=== PATIENT | male | born 1945 | race Caucasian/White ===

== ENCOUNTER 2018-02-15 17:28 | Inpatient (IN) | payer MEDICARE, MEDICAID, SELFPAY ==
[2018-02-15 17:39] VITALS: RESP 16; TEMP 36.6; O2SAT 99; BMI 30.1
--- NOTE | 2018-02-15 19:36 | DI.CT.S_ITS ---
PROCEDURE: CT HEAD/BRAIN WO CON INDICATIONS: weakness - NPH? TECHNIQUE: Noncontrast 4.5 mm thick angled axial sections acquired from the foramen magnum to the vertex, with coronal and sagittal reformats. For radiation dose reduction, the following was used: automated exposure control, adjustment of mA and/or kV according to patient size. COMPARISON: [facility], CT, HEAD WITHOUT CONTRAST, 01/09/2013, 23:12. FINDINGS: Image quality: Excellent. CSF spaces: Basal cisterns are patent. No extra-axial fluid collections. The ventricles are symmetric in size and shape. Brain: No intracranial bleeds or masses. There is cerebral volume loss for age, with resultant ventricular and sulcal prominence. There are periventricular and deep white matter chronic small vessel ischemic changes. There is intracranial internal carotid artery atherosclerosis. Skull and face: Calvarium and visualized facial bones appear intact, without suspicious lesions. Sinuses: Visualized sinuses and mastoids are clear. IMPRESSION: 1. No acute intracranial abnormality. 2. Volume loss and small vessel ischemic disease. Dictated by: Omari Greer M.D. on 02/15/2018 at 20:06 Approved by: Omari Greer M.D. on 02/15/2018 at 20:07
--- NOTE | 2018-02-15 19:38 | DI.RAD.S_ITS ---
PROCEDURE: XR CHEST 2V INDICATIONS: weakness TECHNIQUE: 2 views of the chest were acquired. COMPARISON: [facility], , CHEST 2 VIEW, 10/03/2016, 16:04. FINDINGS: Surgical changes and devices: None. Lungs and pleura: No pleural effusions or pneumothorax. Lungs are clear. Mediastinum: Mediastinal contours are normal. Heart size is normal. Bones and chest wall: No suspicious bony abnormalities. Soft tissues appear unremarkable. IMPRESSION: No acute process. Dictated by: Omari Greer M.D. on 02/15/2018 at 20:06 Approved by: Omari Greer M.D. on 02/15/2018 at 20:06
[2018-02-15 19:46] LABS: Add Manual Diff / Slide Review NO; Basophils Percent Auto 0.5 % (0-2); Eosinophils Percent Auto 2.3 % (2-4); Hematocrit 39.3 % (41-53); Hemoglobin 13.8 g/dL (13.5-17.5); Lymphocytes Percent Auto 17.2 % (25-40); Mean Corpuscular Hemoglobin 31.9 PG (26-34); Monocytes Percent Auto 12.1 % (3-14); Neutrophils Absolute Auto 4800 /uL (3000-5900); Neutrophils Percent Auto 67.9 % (50-75); Platelet Count 208 X10^3/uL (150-400); Red Blood Cell Count 4.32 X10^6/uL (4.5-5.9); Red Cell Distribution Width 12.9 % (11.6-14.8); White Blood Cell Count 7.1 X10^3/uL (4.5-11.0)
[2018-02-15 19:51] LABS: BUN Creatinine Ratio 17.3 (6-22); Calcium 9.4 mg/dL (8.4-10.2); Estimated Glomerular Filt Rate > 60.0 mL/min (>60); Glucose 104 mg/dL (80-110); HEMOLYSIS 35 (0-50); Magnesium 1.9 mg/dL (1.6-2.3); Potassium 4.4 mmol/L (3.4-5.1)
[2018-02-15 19:54] LABS: Sodium 112 mmol/L (137-145)
--- NOTE | 2018-02-15 20:01 | PC.NURSE ---
critical value na 112/ cl 77/ per rd/lindy. dr. becker
[2018-02-15 20:06] LABS: Erythrocyte Sedimentation Rate 3 MM/HR (0-15)
[2018-02-15 20:13] LABS: Troponin I < 0.012 ng/mL (0.01-0.034)
[2018-02-15 20:29] LABS: Free T4, Direct Thyroxine 1.49 ng/dL (0.78-2.19)
[2018-02-15 20:43] LABS: Thyroid Stimulating Hormone 7.44 uIU/mL (0.47-4.68)
--- NOTE | 2018-02-15 21:10 | ED.WEAKNESS ---
HPI - Weakness General Chief complaint: Weakness Stated complaint: NOT EATING,NOT SEEING WELL History of Present Illness HPI Narrative: HPI 72-year-old male with multiple medical comorbidities presents for evaluation of months of gradually worsening ability to perform ADLs. Patient reports chronic diffuse pain, gradually worsening weakness, long-standing blurry vision, and worsening depression. Decreased appetite, decreased taste sensitivity, and decreased enjoyment from taking food. Patient had a period Of unspecified duration, estimated between 1 and 3 weeks of TCA antidepressant noncompliant with resumption between one and 3 weeks prior to ED evaluation. Patient is not seen his primary care provider regarding these issues. Patient lives with his in a double wide trailer. Patient uses a walking stick, expresses reluctance to using a walker. Patient is able to ambulate, perform ADLs, but has increased global weakness. Patient denies chest pain, fevers, chills, dysuria, abdominal pain. Continues to pass flatus and stool at baseline. History obtained from: patient and spouse. 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 Medications: amlodipine, fluticasone, furosemide, HCTZ, levothyroxine, lisinopril, nortriptyline, protons, potassium chloride, pravastatin, tamsulosin ROS: Negative constitutional, eye, cardiovascular, pulmonary, GI, , MSK, skin, neurologic, psychiatric, endocrine unless noted in the HPI. Exam Gen: pleasant, nontoxic-appearing, resting in no apparent distress, mildly obese, appears globally to be in diminished health. HEENT: right pupil pinpoint and nonreactive, left pupil vertically ellipsoid approximately 2.5 mm tall by 1 mm wide, minimally reactive to light (baseline per patient), patient able to count fingers at approximately 3 feet from his left eye (baseline vision without corrective lenses per patient). EOMI, no proptosis. Otherwise normocephalic, atraumatic. Resp: Clear to auscultation bilaterally, normal work of breathing with no accessory muscle usage. Card: Regular rate and rhythm. No JVD. No pedal edema bilaterally. GI: Nontender to palpation throughout all quadrants. Nondistended. : no suprapubic tenderness to palpation. MSK: No visible deformities, mild global decrease in strength and tone. Skin: Normal color with no visible lesions. Neuro: Gen AO x 3, no facial asymmetry, no gaze preference, no slurring of speech. CN II-III: (as above); III, IV, : EOMI, V1-V3: sensation to touch bilaterally intact; VII: no facial asymmetry (frown / smile); VIII: no nystagmus; X: phonation intact; XI: SCM 5/5 bilaterally, XII: tongue midline. Cerebellar: no pronator drift, [id number] testing without dysmetria. Motor: bilateral 5/5 cloth tester quality strength and intact hand sensation to touch, bilateral 5/5 dorsiflexion/plantarflexion and foot sensation intact to touch. Gait: patient able to walk with a mildly unsteady slightly broad based gait, requires minimal assistance (equivalent to a cane). Patient able to sit up and stand independently from the bed. Psych: mildly depressed mood and flat affect. Labs / Imaging (pertinent): WBC 7.1, Hb 13.8, sodium 112, potassium 4.4 glucose 14, creatinine 1.1, troponin less than 0.012, ESR 3, TSH 7.44, free T4 1.49 CXR: No acute cardiopulmonary disease process. CT head: no acute intracranial abnormally. EKG: SR at approximately 60 bpm, VPCs in a bigeminal pattern nonspecific ST segment changes. ECG compared with prior dated 01/09/13, patient in sinus rhythm without ventricular premature contractions. UA - pending (uncollected). MDM Previous chart, nursing note, and vitals reviewed. A: 72-year-old male with multiple medical comorbidities presents for evaluation of months of gradually worsening ability to perform ADLs. DDx: CVA, normal pressure hydrocephalus, ACS/UA, UTI, pneumonia, electrolyte abnormalities,anemia, hypothyroidism, polymyalgia rheumatica, acute on chronic deconditioning, dietary deficiencies. Evaluation: * CVA: Examination without evidence of focal neuro deficit and history without evidence of resolved focal neuro deficit making stroke or TIA unlikely. * ACS/UA: Doubt ACS given a nonischemic EKG and negative troponin, history without clear evidence of symptoms consistent with unstable angina. * UTI: unable to exclude, urinalysis pending at time of admission. * Pneumonia: Doubt pneumonia given lack productive cough, fever, focal infiltrate on chest x-ray, or leukocytosis. * Heme/Lytes/Thyroid: patient with significant hyponatremia, tentatively suspect secondary to malnutrition (tea and toast). * Polymyalgia rheumatica: ESR WNL, poor fit with overall symptoms, further evaluation deferred to PCP. * Normal pressure hydrocephalus: no evidence by imaging. ED Course: no acute clinically significant changes. Disposition: patient admitted for further management of hyponatremia. Impression: hyponatremia. 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 Time: 30 minutes were spent directly related to patient care exclusive of separately billed procedures. . Related Data Home Medications Medication Instructions Recorded Confirmed hydrochlorothiazide 25 mg PO QDAY #0 01/09/13 02/15/18 potassium chloride 10 meq PO QDAY #0 01/09/13 02/15/18 pravastatin [Pravachol] 60 mg PO HS #0 01/09/13 02/15/18 amlodipine 10 mg PO DAILY 02/15/18 02/15/18 fluticasone 2 spray INTRANASAL DAILY 02/15/18 02/15/18 furosemide 20 mg PO DAILY 02/15/18 02/15/18 levothyroxine 75 mcg PO DAILY 02/15/18 02/15/18 lisinopril 80 mg PO DAILY 02/15/18 02/15/18 nortriptyline 20 mg PO QHS 02/15/18 02/15/18 pantoprazole [Protonix] 40 mg PO DAILY 02/15/18 02/15/18 tamsulosin 2 cap PO QHS 02/15/18 02/15/18 Allergies Allergy/AdvReac Type Severity Reaction Status Date / Time Penicillins [PENICILLINS] AdvReac Severe IT PIERCE Unverified 01/06/18 12:54 LIKE MAD NOTHING DIGESTS Exam Initial Vital Signs Initial Vital Signs: Vital Signs Temperature 97.8 F 02/15/18 17:39 Respiratory Rate 16 02/15/18 17:39 Pulse Oximetry 99 02/15/18 17:39 Course Orders Ordered: ED Orders 02/15/18 18:00 Basic Metabolic Panel Stat Complete Blood Count AUTO DIFF Stat Erythrocyte Sedimentation Rate Stat Free T4 Free Thyroxine Stat Magnesium Stat Thyroid Stimulating Hormone Stat Troponin I Stat 02/15/18 18:19 EKG-12 Lead Stat 02/15/18 19:36 CT head/brain wo con Stat Urinalysis and Microscopic Stat 02/15/18 19:38 XR chest 2V Stat Vital Signs - 8 hr 02/15/18 17:39 Temperature 97.8 F Respiratory Rate 16 Pulse Oximetry 99 MDM - Weakness Lab Data Result diagrams: 02/15/18 18:00 02/15/18 18:00 Lab Results 02/15/18 02/15/18 02/15/18 Range/Units 18:00 18:00 18:00 WBC 7.1 (4.5-11.0) X10^3/uL RBC 4.32 L (4.5-5.9) X10^6/uL Hgb 13.8 (13.5-17.5) g/dL Hct 39.3 L (41-53) % MCV 91.0 (80-100) fL MCH 31.9 (26-34) PG MCHC 35.0 (30-36) % RDW 12.9 (11.6-14.8) % Plt Count 208 (150-400) X10^3/uL Neut % (Auto) 67.9 (50-75) % Lymph % (Auto) 17.2 L (25-40) % [place]rick % (Auto) 12.1 (3-14) % Eos % (Auto) 2.3 (2-4) % Baso % (Auto) 0.5 (0-2) % Neut # (Auto) 4800 (8157-9666) /uL ESR 3 (0-15) MM/HR Sodium 112 L* (137-145) mmol/L Potassium 4.4 (3.4-5.1) mmol/L Chloride 77.0 L (98-107) mmol/L Carbon Dioxide 22.0 (22-32) mmol/L BUN 19.0 (9-20) mg/dL Creatinine 1.10 (0.66-1.25) mg/dL Estimated GFR > 60.0 (>60) mL/min BUN/Creatinine Ratio 17.3 (6-22) Glucose 104 (80-110) mg/dL Calcium 9.4 (8.4-10.2) mg/dL Magnesium 1.9 (1.6-2.3) mg/dL Troponin I < 0.012 (0.01-0.034) ng/mL TSH (0.47-4.68) uIU/mL Free T4 (0.78-2.19) ng/dL / Range/Units 18:00 WBC (4.5-11.0) X10^3/uL RBC (4.5-5.9) X10^6/uL Hgb (13.5-17.5) g/dL Hct (41-53) % MCV (80-100) fL MCH (26-34) PG MCHC (30-36) % RDW (11.6-14.8) % Plt Count (150-400) X10^3/uL Neut % (Auto) (50-75) % Lymph % (Auto) (25-40) % [place] % (Auto) (3-14) % Eos % (Auto) (2-4) % Baso % (Auto) (0-2) % Neut # (Auto) (0610-7560) /uL ESR (0-15) MM/HR Sodium (137-145) mmol/L Potassium (3.4-5.1) mmol/L Chloride (98-107) mmol/L Carbon Dioxide (22-32) mmol/L BUN (9-20) mg/dL Creatinine (0.66-1.25) mg/dL Estimated GFR (>60) mL/min BUN/Creatinine Ratio (6-22) Glucose (80-110) mg/dL Calcium (8.4-10.2) mg/dL Magnesium (1.6-2.3) mg/dL Troponin I (0.01-0.034) ng/mL TSH 7.44 H (0.47-4.68) uIU/mL Free T4 1.49 (0.78-2.19) ng/dL Discharge Plan Departure Prescriptions: No Action pravastatin [Pravachol] 40 MG tablet 60 mg PO HS Qty: 0 RF: 0 hydrochlorothiazide 25 MG tablet 25 mg PO QDAY Qty: 0 RF: 0 potassium chloride 10 MEQ tablet extended release 10 meq PO QDAY Qty: 0 RF: 0 levothyroxine 75 mcg tablet 75 mcg PO DAILY RF: 0 tamsulosin 0.4 mg capsule,extended release 24hr 2 cap PO QHS RF: 0 amlodipine 10 mg tablet 10 mg PO DAILY RF: 0 nortriptyline 10 mg capsule 20 mg PO QHS RF: 0 furosemide 20 mg tablet 20 mg PO DAILY RF: 0 lisinopril 40 mg tablet 80 mg PO DAILY RF: 0 fluticasone 50 mcg/actuation spray,suspension 2 spray Intranasal DAILY RF: 0 pantoprazole [Protonix] 40 MG tablet,delayed release (DR/EC) 40 mg PO DAILY RF: 0
[2018-02-16] VITALS (8 sets, daily range): BP systolic 90–130; BP diastolic 42–74; PULSE 65–96; RESP 16–22; TEMP 36.1–36.5; O2SAT 98–100; BMI 30.1
--- NOTE | 2018-02-16 | DI.US.S_ITS ---
PROCEDURE: US ABDOMEN COMPLETE INDICATIONS: abd pain TECHNIQUE: Real-time scanning was performed of the abdominal and retroperitoneal organs, with image documentation. COMPARISON: None. FINDINGS: Liver: Liver is normal in size and homogeneous in echotexture. Gallbladder: Gallbladder is clear with normal wall thickness Biliary ducts: Intrahepatic bile ducts are non-dilated. Extrahepatic bile duct is obscured by bowel gas Normal is 6-7 mm or less in diameter, or 10 mm or less post-cholecystectomy. Pancreas: Visualized portions of the pancreas are sonographically normal. Tail is obscured. Spleen: Spleen is normal in size and homogeneous in echotexture. Kidneys: Kidneys are normal in size and echotexture. Right kidney measures 13.1 cm long; left kidney measures 12.1 cm long. No hydronephrosis or nephrolithiasis. No solid masses. Aorta: Obscured by bowel gas Iliacs: Obscured by bowel gas IVC: Obscured by bowel gas Miscellaneous: None IMPRESSION: 1. Very limited exam secondary to large amount of bowel gas. 2. No visible gallstones or wall thickening. Dictated by: Andrew Del Rosario M.D. on 02/16/2018 at 16:05 Approved by: Andrew Del Rosario M.D. on 02/16/2018 at 16:07
--- NOTE | 2018-02-16 | DI.RAD.S_ITS ---
PROCEDURE: XR ACUTE ABDOMEN SERIES INDICATIONS: abd pain TECHNIQUE: One view chest and two views of the abdomen were acquired. COMPARISON: [facility], CR, XR CHEST 2V, 02/15/2018, 19:19. FINDINGS: Surgical changes and devices: None. Chest: Lungs are clear. Heart size is normal. Aortic calcifications. No pleural effusions. No pneumoperitoneum. Abdomen: There is interposition of bowel over the liver. Considerable bowel gas is present, mostly colonic. No suspicious calcifications. Visualized solid organ contours appear normal. Bones: No suspicious bony lesions. IMPRESSION: 1. No acute cardiopulmonary abnormality. 2. Gassy abdomen, nonspecific. Dictated by: Andrew Del Rosario M.D. on 02/16/2018 at 9:07 Approved by: Andrew Del Rosario M.D. on 02/16/2018 at 9:09
[2018-02-16 00:08] LABS: BUN Creatinine Ratio 15.8 (6-22); Calcium 9.1 mg/dL (8.4-10.2); Estimated Glomerular Filt Rate 59.5 mL/min (>60); Glucose 105 mg/dL (80-110); HEMOLYSIS < 15 (0-50); Potassium 3.9 mmol/L (3.4-5.1)
[2018-02-16 00:09] LABS: Sodium 111 mmol/L (137-145)
[2018-02-16] MEDS: SODIUM CHLORIDE 0.9% 1,000 ML 125 ML IV ×3 (00:58→19:09)
[2018-02-16 01:42] LABS: Lactate (Lactic Acid) 0.7 mmol/L (0.7-2.1)
[2018-02-16 02:02] LABS: Procalcitonin < 0.05 ng/mL (<0.5)
[2018-02-16 02:07] LABS: Appearance Urine UA CLEAR; Bilirubin Urine UA NEGATIVE (NEGATIVE); Color Urine UA YELLOW; Glucose Urine UA NEGATIVE (Negative); Ketones Urine UA TRACE (NEGATIVE); Leukocyte Esterase Urine UA TRACE (NEGATIVE); Nitrite Urine UA NEGATIVE (NEGATIVE); Occult Blood Urine UA NEGATIVE (Negative); Protein Urine UA NEGATIVE (Negative); Urobilinogen Urine UA 0.2 E.U./dL (0.2)
[2018-02-16 02:08] LABS: Bacteria Urine None Seen; Hyaline Casts Urine 0-1/LPF; Squamous Epithelial Cell Urine 0-1 /HPF; WBC Urine 0-1/HPF (0-5/HPF)
[2018-02-16 02:09] LABS: Culture Indicated Urine Specimen Cultured
[2018-02-16] MEDS: HYDROCODONE/ACET 5/325 TABLET 1 TAB PO ×2 (04:55→06:54)
[2018-02-16] MEDS: ONDANSETRON 4 MG/2 ML INJ IV (04:55)
--- NOTE | 2018-02-16 06:13 | PC.ADMIT ---
[id number] [facility] [address] Admission Note: The patient,Jay Reed,72 y/o, was given written information regarding hospital policies, unit procedures and contact persons. Patient's smoking status: Former smoker. Vital Signs - 8 hr 02/16/18 00:19 02/16/18 02:21 02/16/18 03:14 Temperature 97.4 F L Pulse Rate 81 77 96 H Respiratory Rate 16 16 16 Blood Pressure 115/74 Blood Pressure [Left Arm] 90/42 L 112/48 L Pulse Oximetry 100 99 Pt admitted to room 227 from ER, at bedside. Pt/ coop w/ assessment/admit questions. Refused ro catheter (as ordered by ER MD), void x2 in ER. C/o nausea and back/hip px, MD notified and order obtained, also informed of ro refusal. Rx's given. ER MD contacted to obtained orders for admit pt care (VS, I&O's, diet). NPO per MD w/ BMP's Q3hrs. VS and I&O's ordered. Pt gets distracted easily and fixated on small wants, difficult to redirect at times. Communication also difficult at times d/t hearing/vision limitations. Pt weak, up for transfer w/ 2P assist w/ gait belt. Pt unhappy w/ recliner in room and unhappy w/ bed.
[2018-02-16 07:08] LABS: BUN Creatinine Ratio 16.4 (6-22); Calcium 8.7 mg/dL (8.4-10.2); Estimated Glomerular Filt Rate > 60.0 mL/min (>60); Glucose 86 mg/dL (80-110); HEMOLYSIS < 15 (0-50)
[2018-02-16 07:13] LABS: Sodium 113 mmol/L (137-145)
[2018-02-16 08:31] LABS: BUN Creatinine Ratio 15.5 (6-22); Calcium 8.7 mg/dL (8.4-10.2); Estimated Glomerular Filt Rate > 60.0 mL/min (>60); Glucose 84 mg/dL (80-110); HEMOLYSIS 16 (0-50)
[2018-02-16 08:47] LABS: Sodium 112 mmol/L (137-145)
[2018-02-16 08:55] LABS: Sodium Urine Random 25 mmol/L (30-90)
[2018-02-16] MEDS: FUROSEMIDE 20 MG TABLET PO (09:53)
[2018-02-16] MEDS: PANTOPRAZOLE 40 MG VIAL IV (09:53)
[2018-02-16] MEDS: ENOXAPARIN 40 MG/0.4 ML SYRINGE SUBCUT (09:53)
--- NOTE | 2018-02-16 11:04 | PC.NURSE ---
Addendum entered by Wally Martinez R.N. 02/16/18 13:31: Spoke with MD regarding telemetry finding. Per MD telemetry no longer needed. Continues to show NSR with bigem/trigem PVCs. Patient asymptomatic. MD at this time clarifies that serial sodiums not needed. Continue current orders and recheck with AM labs. Patient continues to report pain unrelieved by oral medication. Patient seen sleeping in room on and off throughout the day. No nonverbal signs of pain. No facial grimacing. No moaning. No guarding. MD notified. No further orders for pain at this time. Original Note: Patient found to have regularly irregular heart beat upon auscultation and palpation. Placed on telemetry and shows NSR with PVCs typically in a bigeminal pattern. No change from ECG performed upon admission. Discussed with MD plan of care at beginning of shift. Per MD serial sodiums no longer needed as patient is not rapidly correcting. Continue IV fluids at prescribed rate and have NPO until ultrasound performed.
[2018-02-16] MEDS: HYDROCODONE/ACET 5/325 TABLET 2 TAB PO ×3 (11:27→21:08)
[2018-02-16 11:43] LABS: BUN Creatinine Ratio 15.5 (6-22); Calcium 8.7 mg/dL (8.4-10.2); Estimated Glomerular Filt Rate > 60.0 mL/min (>60); Glucose 82 mg/dL (80-110); HEMOLYSIS < 15 (0-50); Potassium 3.9 mmol/L (3.4-5.1)
[2018-02-16 11:53] LABS: Sodium 114 mmol/L (137-145)
--- NOTE | 2018-02-16 13:17 | PM.HP.1 ---
History of Present Illness Chief complaint: hyponetremia Narrative: Jay Reed is a 72 year old male who presents with weakness and fatigue. The patient apparently has not been feeling well over the last 3 weeks. Has lost basically sensation to taste and has had moderate amount of discomfort in his abdomen. He does not describe it as pain. But discomfort has a hard time localizing it. Does not radiate. Three to 4/10. Nothing seems to make it better and nothing seems to make it worse. Seems to be somewhat constant. No nausea or vomiting. No diarrhea. No change in his bowel movements. No urinary complaints. Feels like he has been urinating less but has been urinating. No pain or frequency. Patient has had no chest pain or shortness of breath or other changes. He is progressively becoming increasingly fatigued. Was having difficulty moving around. Had not been motivated to do much. Does have a history of depression but does not feel as if that is the main issue. Review of systems all 12 systems reviewed except above are all negative. Past medical history: Depression, hypertension, hypothyroidism, distant history of alcohol abuse Past surgical history appendectomy when he was 10 otherwise no major surgery Family history noncontributory to current medical issues. No significant abnormality. Social history nonsmoker nondrinker [employer]ism. Lives at home with . Has been retired. Disabled secondary to vision. Patient History Tobacco & Substance Use Smoking Status: Former smoker Alcohol intake: never Meds Home Medications Medication Instructions Recorded Confirmed Type hydrochlorothiazide 25 mg PO QDAY #0 01/09/13 02/15/18 History potassium chloride 10 meq PO QDAY #0 01/09/13 02/15/18 History pravastatin [Pravachol] 60 mg PO HS #0 01/09/13 02/15/18 History amlodipine 10 mg PO DAILY 02/15/18 02/15/18 History fluticasone 2 spray INTRANASAL DAILY 02/15/18 02/15/18 History furosemide 20 mg PO DAILY 02/15/18 02/15/18 History levothyroxine 75 mcg PO DAILY 02/15/18 02/15/18 History lisinopril 80 mg PO DAILY 02/15/18 02/15/18 History nortriptyline 20 mg PO QHS 02/15/18 02/15/18 History pantoprazole [Protonix] 40 mg PO DAILY 02/15/18 02/15/18 History tamsulosin 2 cap PO QHS 02/15/18 02/15/18 History Allergies Allergy/AdvReac Type Severity Reaction Status Date / Time Penicillins [PENICILLINS] AdvReac Severe IT PIERCE Verified 02/16/18 00:58 LIKE MAD NOTHING DIGESTS Exam Vital Signs (past 8 hours): Vital Signs - 8 hr 02/16/18 07:45 Temperature 96.9 F L Pulse Rate 81 Respiratory Rate 22 Blood Pressure 130/50 H Pulse Oximetry 100 Pulse Oximetry 100 Oxygen Delivery Method Room Air Oxygen Flow Rate 0 Narrative Exam Narrative: This elderly male in no acute distress very sleepy very weak moving slowly. Pupils are without abnormality. Oral mucosa is unremarkable slightly dry. Neck supple without adenopathy JVD or bruits. Lungs are clear. Heart regular rate and rhythm without murmurs, rubs or gallops. Abdomen is soft positive bowel sounds mild upper quadrant tenderness no rebound guarding no masses. Extremities without cyanosis clubbing edema. Neurologic exam shows cranial nerves 2-12 were intact motor is 5/5 reflexes 2+ and symmetric. Did not walk the patient. Mental status appears to be somewhat slowed but overall no story is knows who I am and is oriented. Objective Labs Result Diagrams: 02/15/18 18:00 02/16/18 11:20 Labs: Laboratory Results - last 24 hr 02/15/18 02/15/18 02/15/18 18:00 18:00 18:00 WBC 7.1 RBC 4.32 L Hgb 13.8 Hct 39.3 L MCV 91.0 MCH 31.9 MCHC 35.0 RDW 12.9 Plt Count 208 Neut % (Auto) 67.9 Lymph % (Auto) 17.2 L Clare % (Auto) 12.1 Eos % (Auto) 2.3 Baso % (Auto) 0.5 Neut # (Auto) 4800 ESR 3 Sodium 112 L* Potassium 4.4 Chloride 77.0 L Carbon Dioxide 22.0 BUN 19.0 Creatinine 1.10 Estimated GFR > 60.0 BUN/Creatinine Ratio 17.3 Glucose 104 Lactate Calcium 9.4 Magnesium 1.9 Troponin I < 0.012 Procalcitonin TSH Free T4 Urine Color Urine Appearance Urine pH Ur Specific [place] Urine Protein Urine Glucose (UA) Urine Ketones Urine Occult Blood Urine Nitrate Urine Bilirubin Urine Urobilinogen Ur Leukocyte Esterase Urine WBC Ur Squamous Epith Cells Urine Bacteria Hyaline Casts Ur Culture Indicated? Micro UA Comment Ur Random Sodium 02/15/18 02/15/18 02/16/18 18:00 23:47 01:26 WBC RBC Hgb Hct MCV MCH MCHC RDW Plt Count Neut % (Auto) Lymph % (Auto) Clare % (Auto) Eos % (Auto) Baso % (Auto) Neut # (Auto) ESR Sodium 111 L* Potassium 3.9 Chloride 78.0 L Carbon Dioxide 23.0 BUN 19.0 Creatinine 1.20 Estimated GFR 59.5 L BUN/Creatinine Ratio 15.8 Glucose 105 Lactate Calcium 9.1 Magnesium Troponin I Procalcitonin < 0.05 TSH 7.44 H Free T4 1.49 Urine Color Urine Appearance Urine pH Ur Specific [place] Urine Protein Urine Glucose (UA) Urine Ketones Urine Occult Blood Urine Nitrate Urine Bilirubin Urine Urobilinogen Ur Leukocyte Esterase Urine WBC Ur Squamous Epith Cells Urine Bacteria Hyaline Casts Ur Culture Indicated? Micro UA Comment Ur Random Sodium 02/16/18 02/16/18 02/16/18 01:26 01:50 06:20 WBC RBC Hgb Hct MCV MCH MCHC RDW Plt Count Neut % (Auto) Lymph % (Auto) Clare % (Auto) Eos % (Auto) Baso % (Auto) Neut # (Auto) ESR Sodium 113 L* Potassium 4.0 Chloride 81.0 L Carbon Dioxide 21.0 L BUN 18.0 Creatinine 1.10 Estimated GFR > 60.0 BUN/Creatinine Ratio 16.4 Glucose 86 Lactate 0.7 Calcium 8.7 Magnesium Troponin I Procalcitonin TSH Free T4 Urine Color Yellow Urine Appearance Clear Urine pH 5.0 Ur Specific [place] 1.010 Urine Protein Negative Urine Glucose (UA) Negative Urine Ketones Trace H Urine Occult Blood Negative Urine Nitrate Negative Urine Bilirubin Negative Urine Urobilinogen 0.2 Ur Leukocyte Esterase Trace H Urine WBC 0-1/hpf Ur Squamous Epith Cells 0-1 /hpf Urine Bacteria None seen Hyaline Casts 0-1/lpf Ur Culture Indicated? Specimen cultured Micro UA Comment Not Reportable Ur Random Sodium 02/16/18 02/16/18 02/16/18 07:50 08:08 11:20 WBC RBC Hgb Hct MCV MCH MCHC RDW Plt Count Neut % (Auto) Lymph % (Auto) Clare % (Auto) Eos % (Auto) Baso % (Auto) Neut # (Auto) ESR Sodium 112 L* 114 L* Potassium 4.0 3.9 Chloride 81.0 L 82.0 L Carbon Dioxide 23.0 21.0 L BUN 17.0 17.0 Creatinine 1.10 1.10 Estimated GFR > 60.0 > 60.0 BUN/Creatinine Ratio 15.5 15.5 Glucose 84 82 Lactate Calcium 8.7 8.7 Magnesium Troponin I Procalcitonin TSH Free T4 Urine Color Urine Appearance Urine pH Ur Specific [place] Urine Protein Urine Glucose (UA) Urine Ketones Urine Occult Blood Urine Nitrate Urine Bilirubin Urine Urobilinogen Ur Leukocyte Esterase Urine WBC Ur Squamous Epith Cells Urine Bacteria Hyaline Casts Ur Culture Indicated? Micro UA Comment Ur Random Sodium 25 L Assessment & Plan Plan: Plan: Assessment: Hyponatremia. Etiology is somewhat unclear. I have ordered urine and serum osmolality with urine sodium and will proceed from there. Does not appear to be infective. No evidence of central nervous system abnormality. Most likely secondary to change in diet with abdominal pain. Etiology hopefully will be more clear once we get those labs. Slow hydration was saline I do not think we have to go with hypertonic at this point. Re-evaluate with sodium in a.m.. Abdominal pain. Certainly nothing definitive on exam today. Amie RIOS high with history of gastritis but has really not complaining of definitive abnormality will check guaiac, three-way of the abdomen and ultrasound evaluate gallbladder and liver pancreas re-evaluate after that. Surgical consult if not improving. Dehydration. Mild to moderate. IV hydration as above and will follow. Depression. Hard to assess him right now secondary to hypo natremia. We will see how he responds as things go. We will continue his usual medicines. Hypertension. Stable. No need at this time will hold medicine and restart as needed. Hypothyroidism. Will need increase his dose of medication TSH is elevated will start tomorrow. DVT prophylaxis on Lovenox. GI prophylaxis on PPI. Disposition. At this point clearly is not able to maintain an outside institution secondary to weakness with his hyponatremia and abdominal pain causing probable hyponatremia. Clearly wheezing soft be identified and fixed or he will be a recurrent issue and could potentially be fatal. Expect 2-3 days will see how things go
--- NOTE | 2018-02-16 15:41 | CM.DANOTE ---
DCP Assessment Patient is a 72 year old male who was admitted on 02/16/18 for Hyponatremia. Pt has [facility] and [facility] for insurance and his PCP is Dr. Hoover. EMR was reviewed. Per MD, pt likely here a couple days and etiology still unclear. 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 SW met beside with pt and spouse and explained role and spoke near the pt so that he could hear. Pt confirmed that he lives in a small RV with his and has adult son living on the same property in an RV as well. Pt has become increasingly weak and painful and was able to manage most of his ADL's independently at baseline. Pt denies any hx of HH or SNF and has Medicaid but is not set up with [facility]. Spouse feels that pt likely would benefit from additional assistance at d/c like but worried that their RV is too small for HH to work with them. SW discussed that HH has worked in small living situations before and could potentially still be an option for the pt pending his progress here at the hospital. Pt voiced frustration with pain and sleep while here at the hospital and SW updated RN who will go bedside to discuss with spouse now that she is bedside. SW needs unclear at this time. Plan: SW to follow closely towards determining pt's d/c planning needs closer to discharge and waiting for etiology to clarify pt's needs. DAVIE Monteiro
[2018-02-16] MEDS: NORTRIPTYLINE 10 MG CAPSULE 20 MG PO (21:08)
[2018-02-16] MEDS: TAMSULOSIN 0.4 MG CAPSULE 0.8 MG PO (21:08)
[2018-02-17] MEDS: HYDROCODONE/ACET 5/325 TABLET 2 TAB PO (00:54)
[2018-02-17] MEDS: SODIUM CHLORIDE 0.9% 1,000 ML 125 ML IV ×2 (03:10→11:22)
[2018-02-17 05:06] VITALS: BP 126/69; PULSE 83; RESP 16; TEMP 36.3; O2SAT 99
[2018-02-17 06:02] LABS: Add Manual Diff / Slide Review NO; Basophils Percent Auto 0.6 % (0-2); Hematocrit 40.4 % (41-53); Hemoglobin 14.3 g/dL (13.5-17.5); Lymphocytes Percent Auto 25.8 % (25-40); Mean Corpuscular HGB Conc 35.3 % (30-36); Mean Corpuscular Hemoglobin 32.3 PG (26-34); Mean Corpuscular Volume 91.5 fL (80-100); Neutrophils Absolute Auto 3800 /uL (3000-5900); Neutrophils Percent Auto 61.6 % (50-75); Platelet Count 200 X10^3/uL (150-400); Red Blood Cell Count 4.42 X10^6/uL (4.5-5.9); Red Cell Distribution Width 13.2 % (11.6-14.8); White Blood Cell Count 6.2 X10^3/uL (4.5-11.0)
[2018-02-17] MEDS: HYDROCODONE/ACET 5/325 TABLET 1 TAB PO ×2 (06:34→18:48)
[2018-02-17] MEDS: FUROSEMIDE 20 MG TABLET PO (08:03)
[2018-02-17] MEDS: PANTOPRAZOLE 40 MG VIAL IV (08:03)
[2018-02-17] MEDS: ENOXAPARIN 40 MG/0.4 ML SYRINGE SUBCUT (08:03)
[2018-02-17 08:41] VITALS: BP 118/66; PULSE 82; RESP 18; TEMP 36.4; O2SAT 100
--- NOTE | 2018-02-17 08:43 | P.PN_ITS ---
Subjective Interval history: Overall patient feeling better. More strength. Vision is better. Abdominal pain is apparently resolved. No other significant new changes or complaints. No nausea or vomiting. No change in his bowel movements. No other significant problem. Date Patient Seen: 02/17/18 Time Patient Seen: 08:36 Exam Vital Signs (past 8 hours): Vital Signs - 8 hr 3 02/17/18 05:06 Temperature 97.3 F L Pulse Rate 83 Respiratory Rate 16 Blood Pressure 126/69 H Pulse Oximetry 99 Pulse Oximetry 99 Oxygen Delivery Method Room Air Oxygen Flow Rate 0 Narrative Exam Narrative: Alert male in no acute distress much less fatigued in appearance. Lungs are clear. Heart's regular rate and rhythm. Abdomen is soft positive bowel sounds nontender. Extremities without cyanosis clubbing edema. Objective Labs Result Diagrams: 02/17/18 05:07 02/16/18 11:20 Labs: Laboratory Results - last 24 hr 02/16/18 02/16/18 02/16/18 07:50 08:08 11:20 WBC RBC Hgb Hct MCV MCH MCHC RDW Plt Count Neut % (Auto) Lymph % (Auto) [place] % (Auto) Eos % (Auto) Baso % (Auto) Neut # (Auto) Sodium 112 L* 114 L* Potassium 4.0 3.9 Chloride 81.0 L 82.0 L Carbon Dioxide 23.0 21.0 L BUN 17.0 17.0 Creatinine 1.10 1.10 Estimated GFR > 60.0 > 60.0 BUN/Creatinine Ratio 15.5 15.5 Glucose 84 82 Calcium 8.7 8.7 Ur Random Sodium 25 L 02/17/18 05:07 WBC 6.2 RBC 4.42 L Hgb 14.3 Hct 40.4 L MCV 91.5 MCH 32.3 MCHC 35.3 RDW 13.2 Plt Count 200 Neut % (Auto) 61.6 Lymph % (Auto) 25.8 [place] % (Auto) 10.0 Eos % (Auto) 2.0 Baso % (Auto) 0.6 Neut # (Auto) 3800 Sodium Potassium Chloride Carbon Dioxide BUN Creatinine Estimated GFR BUN/Creatinine Ratio Glucose Calcium Ur Random Sodium Assessment & Plan Plan: Plan: Abdominal pain. Seems to be significantly improved. Etiology is unclear. Ultrasound appears normal though limited function. Three-way of the abdomen shows gas but no significant abnormality. White count is normal. At this point certainly nothing significant to be found. Will continue with PPI and advance diet and see how he tolerates. If does well controlled home depending on other issues. Hyponatremia. Certainly clinically doing better was not drawn this morning will order now. Will continue fluids for now. Will follow up sodium and follow from there. Weakness. Patient seems to be improved. Will begin physical therapy and re- evaluate after that. Possibly home tomorrow. Depending on the numbers. Hypertension. Stable. Dehydration. Overall stable. No significant new changes. Will continue fluid see how he does with diet and re-evaluate in a.m.. Depression. Overall stable. Not sure how much of this has to do with his issues certainly did increase his abdominal pain. Has been a significant issue I do not think he is at significant risk may need to consider psychiatrist as outpatient. Disposition. If physical therapy does well hyponatremia resolves and he can eat he try go home tomorrow. We will see how things go.
[2018-02-17 09:08] LABS: BUN Creatinine Ratio 12.5 (6-22); Calcium 8.8 mg/dL (8.4-10.2); Estimated Glomerular Filt Rate > 60.0 mL/min (>60); Glucose 87 mg/dL (80-110); HEMOLYSIS 25 (0-50); Potassium 3.8 mmol/L (3.4-5.1); Sodium 123 mmol/L (137-145)
[2018-02-17 12:00] VITALS: BP 131/55; PULSE 75; RESP 18; TEMP 36.4; O2SAT 99
--- NOTE | 2018-02-17 15:43 | PC.NURSE ---
Patient is A&O x3 but sometimes forgetful w/ staff. Patient is however, easily re-directable with orientation. P.T in room working w/ patient at this time, at bedside as well. Patient is observed to be a bit wobbly and slow w/ ambulation. Call light w/ in reach, working w/ PT. Nurse will return later on to assess patient.
[2018-02-17 15:50] VITALS: BP 134/76; PULSE 88; RESP 18; TEMP 36.4; O2SAT 99
--- NOTE | 2018-02-17 17:09 | PT.IIE ---
Physical Therapy Inpatient Evaluation/Re-Eval M1 PT/OT-IP Prior Functional Status Start: 02/17/18 16:44 Freq: NEEDED Status: Active Protocol: Document 02/17/18 16:44 AB (Rec: 02/17/18 17:09 AB [email or web address]) Medical Review Prior Functional Status Medical History Reviewed Yes Mobility and Gait pt and spouse stated that pt is mod I with mobility. pt ambulates indoor with occasional use of walking stick but usually justs holds on to the guevara. pt stated that the house is small. pt uses his walking stick outdoors at all times, Social History Household Members spouse children Living Arrangements Mobile home Number of Floors (Floors) One Floor Number of Stairs To Enter/Railing? 4 steps with L rail ascending Home Environment Tub/Shower Home Equipment Straight Cane Manual Wheelchair Shower Seat without Backrest Hand Held Shower Employment Status Retired Additional Social History Comment pt lives with spouse and son. spouse works and stated that if she is not around, pt's son will be around to assist pt. pt has a low toilet and uses wall and tub to get up. pt lives in a trailer. stated that a walker will not fit in the house. M2 PT-IP Current Condition Start: 02/17/18 16:44 Freq: NEEDED Status: Active Protocol: Document 02/17/18 16:44 AB (Rec: 02/17/18 17:09 AB [email or web address]) Physical Therapy Current Condition Current Condition Evaluation Date 02/17/18 Treatment Diagnosis hyponatremia Onset Date 02/15/18 M3 PT-IP Subjective Start: 02/17/18 16:44 Freq: NEEDED Status: Active Protocol: Document 02/17/18 16:44 AB (Rec: 02/17/18 17:09 AB [email or web address]) Subjective Physical Therapy Visit Type Type Initial Evaluation Visit Start Time 15:26 Visit Stop Time 15:56 Total Visit Minutes 30 Number of WOODEN FURNITURE POLISHER Visits 0 Physical Therapy Visit Comments Patient Comments pt agreeable to do therapy; spouse present M4 PT-IP Mobility and Gait Start: 02/17/18 16:44 Freq: NEEDED Status: Active Protocol: Document 02/17/18 16:44 AB (Rec: 02/17/18 17:09 AB [email or web address]) PT-Bed Mobility Assessment Supine to Sit Supine to Sit Standby Assistance Sit to Supine Sit to Supine Standby Assistance PT-Transfer Assessment Sit to and From Stand Sit to and from Stand Contact Guard Assistance Equipment Orthotic/Prosthetic Devices or Brace: No Transfers Transfer Destination Bed Chair Transfer Technique Stand Step Pivot Transfer Ability Level of Assist Moderate Assistance Comments Mobility Comments pt used a walking stick for transfers and ambulation requiring mod A with unsteady standing balance and LE shaking. Gait Assessment Gait Gait Assistance Required: Moderate Assistance Distance (Feet) (feet) 15 Assistive Devices Assistive Device Gait Belt Straight Cane Orthotic/Prosthetic Devices or Brace: No Gait Deviations General Gait Pattern Antalgic Decreased Stride Length Factors Limiting Gait Function Factors Limiting Gait Function Decreased Activity Tolerance Decreased Strength Poor Balance Poor Safety Awareness Comments Gait Comments pt used a walking stick for ambulation. pt presents with unsteady gait and tends to hold on to bed frame for steadiness. PT-Balance Assessment Sitting Balance and Reactions Static Sitting Balance Ability Good Dynamic Sitting Balance Ability Fair Standing Balance and Reactions Static Standing Balance Ability Poor Dynamic Standing Balance Ability Poor Device Used walking stick M5 PT-IP Objective Assessments Start: 02/17/18 16:44 Freq: NEEDED Status: Active Protocol: Document 02/17/18 16:44 AB (Rec: 02/17/18 17:09 AB [email or web address]) Orientation Orientation/Cognition Level of Alertness Alert Orientation Name Place Situation Safety Awareness Decreased Safety Awareness Strength Lower Extremity Strength Assessment Bilaterally Impaired M6 PT-IP Treatment Start: 02/17/18 16:44 Freq: NEEDED Status: Active Protocol: Document 02/17/18 16:44 AB (Rec: 02/17/18 17:09 AB [email or web address]) Physical Therapy Treatment Other Treatments Other Treatment Performed educated on safety M7 PT-IP Assessment and Plan Start: 02/17/18 16:44 Freq: NEEDED Status: Active Protocol: Document 02/17/18 16:44 AB (Rec: 02/17/18 17:09 AB [email or web address]) PT Summary Assessment and Plan Potential Rehabilitation Potential Fair Status of Condition at Evaluation Evolving Summary Impairments Strength Balance Coordination Bed Mobility Transfers Gait Activity Tolerance Assessment Summary pt requiring one person assist with mobility. pt plans to go home with spouse or son assisting him. d/c plan depending on caregiver training and stair training. pt will benefit from homehealth therapy. Goals Bed Mobility Goal Independent Transfer Goal Independent Gait Goal Independent Gait Distance 100 Days to Meet Goals 3 Frequency of Treatment Frequency Of Treatment Twice a Day Treatment Plan Physical Therapy Treatment Plan Bed Mobility Training Transfer Training Gait Training Therapeutic Exercise Balance Retraining Discharge Planning Neuromuscular Re-ed Other Recommendations and Next Treatment ambulation; caregiver training Focus 3 pm aguilar Recommendations To Nursing Amount of Assist Needed 1 Person Assist Discharge Recommendations PT Discharge Recommendations Home with 20/04 Assist Home Health Visit Care Team Role Provider Type Zackary Hoover MD Family Provider Physician Primary Care Provider Nolan Renteria MD Emergency Provider Physician Anabel Montana MD Admit Provider Physician Attending Provider Other Providers
[2018-02-17 20:10] VITALS: BP 119/62; PULSE 82; RESP 18; TEMP 36.3; O2SAT 98
[2018-02-17] MEDS: NORTRIPTYLINE 10 MG CAPSULE 20 MG PO (21:01)
[2018-02-17] MEDS: TAMSULOSIN 0.4 MG CAPSULE 0.8 MG PO (21:01)
[2018-02-17 23:33] VITALS: BP 136/71; PULSE 83; RESP 18; TEMP 36.6; O2SAT 100
[2018-02-18 05:35] LABS: BUN Creatinine Ratio 12.9 (6-22); Estimated Glomerular Filt Rate > 60.0 mL/min (>60); Glucose 96 mg/dL (80-110); HEMOLYSIS < 15 (0-50); Potassium 3.5 mmol/L (3.4-5.1); Sodium 126 mmol/L (137-145)
[2018-02-18 06:17] VITALS: BP 132/82; PULSE 72; RESP 16; TEMP 36.2; O2SAT 98
[2018-02-18] MEDS: ENOXAPARIN 40 MG/0.4 ML SYRINGE SUBCUT (08:06)
[2018-02-18] MEDS: PANTOPRAZOLE 40 MG VIAL IV (08:07)
[2018-02-18] MEDS: NYSTATIN 30 GM POWDER 1 APPLIC TOP (08:07)
[2018-02-18] MEDS: FUROSEMIDE 20 MG TABLET PO (08:07)
[2018-02-18] MEDS: SODIUM CHLORIDE 0.9% FLUSH 10 ML IV ×2 (08:13→20:42)
[2018-02-18 08:26] VITALS: BP 145/75; PULSE 73; RESP 16; TEMP 36.4; O2SAT 98
--- NOTE | 2018-02-18 09:31 | P.PN_ITS ---
Subjective Interval history: Patient seems a little confused today. Somewhat rambling speech. Does not have any complaint of abdominal pain, I think has been up and around the bed but I am not real clear with that, although I am not familiar with this patient and not certain of his baseline. Exam Vital Signs (past 8 hours): Vital Signs - 8 hr 3 02/18/18 06:17 02/18/18 08:26 Temperature 97.2 F L 97.5 F L Pulse Rate 72 73 Respiratory Rate 16 16 Blood Pressure 132/82 H 145/75 H Pulse Oximetry 98 98 Pulse Oximetry 98 Oxygen Delivery Method Room Air Oxygen Flow Rate 0 Narrative Exam Narrative: Healthy appearing acute distress sitting up in a chair. HEENT unremarkable chest is clear heart regular without murmur abdomen soft nontender nondistended extremities trace edema neurologically again somewhat confused but otherwise nonfocal. Objective Labs Result Diagrams: 02/17/18 05:07 02/18/18 05:21 Labs: Laboratory Results - last 24 hr 02/18/18 05:21 Sodium 126 L Potassium 3.5 Chloride 91.0 L Carbon Dioxide 25.0 BUN 9.0 Creatinine 0.70 Estimated GFR > 60.0 BUN/Creatinine Ratio 12.9 Glucose 96 Calcium 9.0 Assessment & Plan (1) Abdominal pain: Problem details: Largely resolved Current visit: Yes Status: Acute (2) Weakness: Problem details: Persistent though somewhat improved it seems. Current visit: Yes Status: Acute (3) Confusion: Problem details: Not sure if this is a new issue for present in the past. Could be related to the 1st problem Current visit: Yes Status: Acute (4) Hyponatremia: Problem details: This is the 1st problem. Has improved but his mental status today seems just a little questionable so I am reluctant to consider discharge at this time. Continue same overnight recheck labs in the morning consider discharge at that time. Current visit: Yes Status: Acute Plan: Plan: Recheck labs in the morning continue otherwise same.
--- NOTE | 2018-02-18 11:46 | PT.IPTN ---
Current Diagnoses Hypo-osmolality and hyponatremia (02/16/18) Unspecified abdominal pain (02/16/18) Disorientation, unspecified (02/16/18) Weakness (02/16/18) Physical Therapy Treatment Note M2 PT-IP Current Condition Start: 02/17/18 16:44 Freq: NEEDED Status: Active Protocol: Document 02/18/18 10:50 DCW (Rec: 02/18/18 11:46 DCW [id number]) Physical Therapy Current Condition Current Condition Evaluation Date 02/17/18 Treatment Diagnosis hyponatremia Onset Date 02/15/18 M3 PT-IP Subjective Start: 02/17/18 16:44 Freq: NEEDED Status: Active Protocol: Document 02/18/18 10:50 DCW (Rec: 02/18/18 11:46 DCW [id number]) Subjective Physical Therapy Visit Type Type Treatment Note Visit Start Time 10:50 Visit Stop Time 11:15 Total Visit Minutes 25 Number of STORE SPECIALIST Visits 0 Physical Therapy Visit Comments Patient Comments Pt agreeable to get up and walk today. Therapy Pain Assessment Pain When Pain Assessed After Treatment Pain Present Pain Present Denied Pain M4 PT-IP Mobility and Gait Start: 02/17/18 16:44 Freq: NEEDED Status: Active Protocol: Document 02/18/18 10:50 DCW (Rec: 02/18/18 11:46 DCW [id number]) PT-Transfer Assessment Sit to and From Stand Sit to and from Stand Contact Guard Assistance Gait Assessment Gait Gait Assistance Required: Contact Guard Assist Distance (Feet) (feet) 145 Able to Maintain Weight Bearing Status Yes During Gait Assistive Devices Assistive Device Gait Belt Front Wheeled Walker Gait Deviations General Gait Pattern Antalgic Decreased Stride Length Flexed Trunk Factors Limiting Gait Function Factors Limiting Gait Function Decreased Activity Tolerance Decreased Strength Comments Gait Comments Pt ambulated around [employer]'s station using FWW. Pt able to walk CGA with no complaints of pain. M5 PT-IP Objective Assessments Start: 02/17/18 16:44 Freq: NEEDED Status: Active Protocol: Document 02/18/18 10:50 DCW (Rec: 02/18/18 11:46 DCW [id number]) Orientation Orientation/Cognition Level of Alertness Alert Orientation Name Safety Awareness Decreased Safety Awareness M6 PT-IP Treatment Start: 02/17/18 16:44 Freq: NEEDED Status: Active Protocol: Document 02/18/18 10:50 DCW (Rec: 02/18/18 11:46 DCW [id number]) Physical Therapy Treatment Other Treatments Other Treatment Performed Standing balance with and without assistive device, working on standing tolerance while pt used urinal. M7 PT-IP Assessment and Plan Start: 02/17/18 16:44 Freq: NEEDED Status: Active Protocol: Document 02/18/18 10:50 DCW (Rec: 02/18/18 11:46 DCW [id number]) PT Summary Assessment and Plan Summary Assessment Summary Pt improved gait tolerance and decreased complaints of pain from yesterday. Home Health will still be best benefit to patient. Caregiver training planned for 3 pm today. Goals Bed Mobility Goal Independent Transfer Goal Independent Gait Goal Independent Gait Distance 100 Days to Meet Goals 3 Frequency of Treatment Frequency Of Treatment Twice a Day Treatment Plan Physical Therapy Treatment Plan Bed Mobility Training Transfer Training Gait Training Therapeutic Exercise Balance Retraining Discharge Planning Neuromuscular Re-ed Other Recommendations and Next Treatment ambulation; caregiver training Focus 3 pm Recommendations To Nursing Amount of Assist Needed 1 Person Assist Discharge Recommendations PT Discharge Recommendations Home with 20/04 Assist Home Health
[2018-02-18 12:00] VITALS: BP 121/65; PULSE 73; RESP 16; TEMP 36.8; O2SAT 98
--- NOTE | 2018-02-18 13:50 | DIET.PN ---
Visited pt this afternoon following nutritional screen; pt had MNA = 6 at admission. Pt was fast asleep so KANDACE Cruz was consulted. Informed me that this pt was recently placed on comfort care and had not eaten anything all day. Suggested no ONS or other nutrition interventions at this time, with which I concur. Will monitor to see if pt resumes eating or otherwise perks up and reassess PRN. Tiff Herrera, undergraduate internship Tonia Kenyon RDN
--- NOTE | 2018-02-18 14:27 | PC.NURSE ---
PT AWAKE FOR FIRST FEW HRS OF SHIFT, ASLEEP AT APPROX 1100 PT HAS BEEN MOSTLY SLEEPING SINCE THAT TIME. REFUSES OFFER TO REPOSITION AND REQUESTS TO REMAIN IN RECLINER.
[2018-02-18 15:15] VITALS: BP 129/68; PULSE 76; RESP 18; TEMP 36.2; O2SAT 99
--- NOTE | 2018-02-18 16:32 | PT.IPTN ---
Current Diagnoses Hypo-osmolality and hyponatremia (02/16/18) Unspecified abdominal pain (02/16/18) Disorientation, unspecified (02/16/18) Weakness (02/16/18) Physical Therapy Treatment Note Document 02/18/18 16:21 GGD (Rec: 02/18/18 16:32 GGD [id number]) Subjective Physical Therapy Visit Type Type Treatment Note Visit Start Time 15:40 Visit Stop Time 16:10 Total Visit Minutes 30 Number of PLANT MANAGER Visits 1 Physical Therapy Visit Comments Patient Comments Pt willing to walk. Therapy Pain Assessment Pain Present Pain Present Denied Pain M4 PT-IP Mobility and Gait Start: 02/17/18 16:44 Freq: NEEDED Status: Active Protocol: Document 02/18/18 16:21 GGD (Rec: 02/18/18 16:32 GGD [id number]) PT-Transfer Assessment Sit to and From Stand Sit to and from Stand Contact Guard Assistance Gait Assessment Gait Gait Assistance Required: Contact Guard Assist Distance (Feet) (feet) 100 Able to Maintain Weight Bearing Status Yes During Gait Assistive Devices Assistive Device Gait Belt Front Wheeled Walker Gait Deviations General Gait Pattern Antalgic Decreased Stride Length Decreased Feet Clearance Flexed Trunk Factors Limiting Gait Function Factors Limiting Gait Function Decreased Activity Tolerance Decreased Strength Poor Balance Poor Safety Awareness Comments Gait Comments Pt ambulated 8 feet with walking stick with min a and mod unsteadiness. With FWW he had mild unsteadiness. Protocol: Document 02/18/18 16:21 GGD (Rec: 02/18/18 16:32 GGD [id number]) Physical Therapy Treatment Other Treatments Other Treatment Performed Educated on gait with FWW for safety. M7 PT-IP Assessment and Plan Start: 02/17/18 16:44 Freq: NEEDED Status: Active Protocol: Document 02/18/18 16:21 GGD (Rec: 02/18/18 16:32 GGD [id number]) PT Summary Assessment and Plan Summary Assessment Summary Pt had unsteadiness and is a fall risk with gait. His home is to small for use of FWW in the home and he is resistant to use FWW. He sleeps most nights in chair. His can be present for caregiver training after 3 pm. Frequency of Treatment Frequency Of Treatment Twice a Day Treatment Plan Physical Therapy Treatment Plan Bed Mobility Training Transfer Training Gait Training Therapeutic Exercise Balance Retraining Discharge Planning Neuromuscular Re-ed Other Recommendations and Next Treatment ambulation; caregiver training Focus 3 pm, stairs before D/C has 4 stairs to enter with one rail . Recommendations To Nursing Amount of Assist Needed 1 Person Assist Discharge Recommendations PT Discharge Recommendations Home with 24/ Assist Home Health
--- NOTE | 2018-02-18 16:33 | PC.NURSE ---
patient is A&O x3 pleasant and cooperative w/ staff and is able to make needs known when nec. Patient is sitting up to chair visiting w/ . Patient was up walking in halls w/ PT around 1530 this [place]. Patient is very talkative w/ staff and wants to discuss his concerns asked patient to elaborate on what his concerns are. States PT said I could go home, I need to use a walker to get around instead of using a grocery basket Patient states I like using the grocery basket better for stability and its height. States I am ready to go home now Patiet is refusing to get out of chair and desires to stay there all evening. Call light w/in reach.
[2018-02-18 17:02] LABS: Osmolality, Serum 236 mosm/kg (260-310)
[2018-02-18 17:03] LABS: Osmolality Urine 185 mosm/kg (220-1300)
[2018-02-18 20:00] VITALS: BP 143/87; PULSE 74; RESP 18; TEMP 36.2; O2SAT 100
[2018-02-18] MEDS: NORTRIPTYLINE 10 MG CAPSULE 20 MG PO (20:42)
[2018-02-18] MEDS: TAMSULOSIN 0.4 MG CAPSULE 0.8 MG PO (20:42)
[2018-02-18 23:48] VITALS: BP 136/76; PULSE 78; RESP 18; TEMP 36.3; O2SAT 18
[2018-02-19 05:37] VITALS: BP 132/65; PULSE 73; RESP 18; TEMP 36.7; O2SAT 100
[2018-02-19 05:44] LABS: Add Manual Diff / Slide Review NO; Basophils Percent Auto 0.7 % (0-2); Eosinophils Percent Auto 5.9 % (2-4); Hemoglobin 13.9 g/dL (13.5-17.5); Lymphocytes Percent Auto 20.3 % (25-40); Mean Corpuscular HGB Conc 34.8 % (30-36); Mean Corpuscular Hemoglobin 31.9 PG (26-34); Mean Corpuscular Volume 91.9 fL (80-100); Monocytes Percent Auto 11.6 % (3-14); Neutrophils Absolute Auto 3500 /uL (3000-5900); Neutrophils Percent Auto 61.5 % (50-75); Platelet Count 186 X10^3/uL (150-400); Red Blood Cell Count 4.35 X10^6/uL (4.5-5.9); Red Cell Distribution Width 13.4 % (11.6-14.8); White Blood Cell Count 5.7 X10^3/uL (4.5-11.0)
[2018-02-19 05:51] LABS: BUN Creatinine Ratio 11.3 (6-22); Calcium 9.3 mg/dL (8.4-10.2); Estimated Glomerular Filt Rate > 60.0 mL/min (>60); Glucose 84 mg/dL (80-110); HEMOLYSIS < 15 (0-50); Potassium 3.4 mmol/L (3.4-5.1); Sodium 129 mmol/L (137-145)
[2018-02-19 08:12] VITALS: BP 140/72; PULSE 72; RESP 16; TEMP 36.2; O2SAT 99
[2018-02-19] MEDS: ENOXAPARIN 40 MG/0.4 ML SYRINGE SUBCUT (08:47)
[2018-02-19] MEDS: SODIUM CHLORIDE 0.9% FLUSH 10 ML IV (08:48)
[2018-02-19] MEDS: FUROSEMIDE 20 MG TABLET PO (08:48)
[2018-02-19] MEDS: PANTOPRAZOLE 40 MG VIAL IV (08:48)
--- NOTE | 2018-02-19 10:23 | PT.IPTN ---
Current Diagnoses Hypo-osmolality and hyponatremia (02/16/18) Unspecified abdominal pain (02/16/18) Disorientation, unspecified (02/16/18) Weakness (02/16/18) Physical Therapy Treatment Note M2 PT-IP Current Condition Start: 02/17/18 16:44 Freq: NEEDED Status: Active Protocol: Document 02/18/18 10:50 DCW (Rec: 02/18/18 11:46 DCW [id number]) Physical Therapy Current Condition Current Condition Evaluation Date 02/17/18 Treatment Diagnosis hyponatremia Onset Date 02/15/18 M3 PT-IP Subjective Start: 02/17/18 16:44 Freq: NEEDED Status: Active Protocol: Document 02/19/18 10:06 GGD (Rec: 02/19/18 10:23 GGD [email or web address]) Subjective Physical Therapy Visit Type Type Treatment Note Visit Start Time 09:30 Visit Stop Time 09:55 Total Visit Minutes 25 Number of SURVEILLANCE TECHNICIAN Visits 2 Physical Therapy Visit Comments Patient Comments PT states he is willing to try stairs. He wants to go home and shower. M4 PT-IP Mobility and Gait Start: 02/17/18 16:44 Freq: NEEDED Status: Active Protocol: Document 02/19/18 10:06 GGD (Rec: 02/19/18 10:23 GGD [email or web address]) PT-Transfer Assessment Sit to and From Stand Sit to and from Stand Contact Guard Assistance Gait Assessment Gait Gait Assistance Required: Contact Guard Assist Distance (Feet) (feet) 300 Able to Maintain Weight Bearing Status Yes During Gait Assistive Devices Assistive Device Gait Belt Front Wheeled Walker Gait Deviations General Gait Pattern Antalgic Decreased Stride Length Decreased Feet Clearance Flexed Trunk Factors Limiting Gait Function Factors Limiting Gait Function Decreased Strength Poor Balance Poor Safety Awareness Comments Gait Comments PT ambulated 10 feet with walking stick with min unsteadiness. He had increase in unsteadiness with gait with FWW with fatigue. Stair Climbing Assessment Evaluation Level of Assist On Stairs Contact Guard Assistance Devices Stair Climbing Assistive Devices Straight Cane Left Railing Technique/Endurance Stair Climbing Direction Ascend and Descend Stair Climbing Technique Step to Step Number of Steps Climbed 3 Query Text: Stair Climbing Set # Repetitions (reps) 1 Comments Stair Climbing Comments Pt was safe and stable with stair. Mild unsteadiness with descending stairs. used one rail and walking stick. M5 PT-IP Objective Assessments Start: 02/17/18 16:44 Freq: NEEDED Status: Active Protocol: Document 02/18/18 10:50 DCW (Rec: 02/18/18 11:46 DCW [id number]) Orientation Orientation/Cognition Level of Alertness Alert Orientation Name Safety Awareness Decreased Safety Awareness M6 PT-IP Treatment Start: 02/17/18 16:44 Freq: NEEDED Status: Active Protocol: Document 02/18/18 16:21 GGD (Rec: 02/18/18 16:32 GGD [id number]) Physical Therapy Treatment Other Treatments Other Treatment Performed Educated on gait with FWW for safety. M7 PT-IP Assessment and Plan Start: 02/17/18 16:44 Freq: NEEDED Status: Active Protocol: Document 02/19/18 10:06 GGD (Rec: 02/19/18 10:23 GGD [email or web address]) PT Summary Assessment and Plan Summary Assessment Summary Pt did better with gait. He still was unsteady. He had no LOB and improved step length untill fatigued. He still a fall risk, but refuses SNF or home health. Frequency of Treatment Frequency Of Treatment Twice a Day Treatment Plan Physical Therapy Treatment Plan Bed Mobility Training Transfer Training Gait Training Therapeutic Exercise Balance Retraining Discharge Planning Neuromuscular Re-ed Other Recommendations and Next Treatment ambulation; caregiver training Focus 3 pm. Recommendations To Nursing Amount of Assist Needed 1 Person Assist Discharge Recommendations PT Discharge Recommendations Home with 20/04 Assist Home Health
[2018-02-19 12:09] VITALS: BP 133/70; PULSE 73; RESP 16; TEMP 36.5; O2SAT 97
--- NOTE | 2018-02-19 13:13 | PM.DS.1 ---
History of Present Illness Chief complaint: hyponetremia Narrative: Jay Reed is a 72 year old male Narrative: Jay Reed is a 72 year old male who presents with weakness and fatigue. The patient apparently has not been feeling well over the last 3 weeks. Has lost basically sensation to taste and has had moderate amount of discomfort in his abdomen. He does not describe it as pain. But discomfort has a hard time localizing it. Does not radiate. Three to 4/10. Nothing seems to make it better and nothing seems to make it worse. Seems to be somewhat constant. No nausea or vomiting. No diarrhea. No change in his bowel movements. No urinary complaints. Feels like he has been urinating less but has been urinating. No pain or frequency. Patient has had no chest pain or shortness of breath or other changes. Discharge Providers Date of admission: 02/16/18 01:53 Primary care physician: Zackary Hoover MD Consults: 02/15/18 22:32 Consult to Physician Routine Comment: Consulting Provider: Anabel Montana Reason for consultation: hyponatremia 02/17/18 08:36 Consult to Physical Therapy Evaluate & Treat Comment: Physician Instructions: Evaluate and Treat Discharge provider: Zackary Hoover MD Summary Discharge Diagnosis: Hyponatremia Abdominal pain Dehydration Depression Hypertension Hypothyroidism Hospital Course: Hyponatremia. Patient was admitted and IV saline was given. In 24 hr he was feeling markedly better and his sodium was elevated and he was feeling so much better. Strength was better other issues were better. He slowly continued to improve was able to eat and was having no problems. Etiology was unclear but had completely resolved and was felt to be secondary to his abdominal discomfort. His poor diet. He seems to been doing better since he has been here. His sodium now is almost completely normalized and he has been on regular diet. He will be followed as an outpatient it was felt that he has weakness was secondary to his hyponatremia. Physical therapy felt like he was at least safe but we will work on his outpatient. does not want home health feel like they can do this at home.. Dehydration. Patient was aggressively hydrated over the 1st 24 hr and did well. He was a normal hydration at time of discharge. Abdominal pain. Patient had negative ultrasound. Normal lab work. Was placed on omeprazole IV and had completely resolved. He is feeling well the etiology was unclear and was probable cause of his hypo natremia but at this point no further workup is needed these completely resolved and had a normal exam. Depression. He feels like he is doing well. I do not know how much of this has any impact on his ability to eat and keep his diet up. Overall seems to be stable at this time. Will follow as outpatient. Hypertension stable. Hypothyroidism. Mild increase in TSH. Will change dose from clinic. Exam Vital Signs (past 8 hours): Vital Signs - 8 hr 02/19/18 05:37 02/19/18 08:12 02/19/18 12:09 Temperature 98.1 F 97.2 F L 97.7 F Pulse Rate 73 72 73 Respiratory Rate 18 16 16 Blood Pressure 132/65 H 140/72 H 133/70 H Pulse Oximetry 100 99 97 Pulse Oximetry 97 Oxygen Delivery Method Room Air Oxygen Flow Rate 0 Narrative Exam Narrative: Alert elderly male in no acute distress sleeping Mucous membranes moist. Neck is supple without adenopathy JVD or bruits. Lungs are clear. Heart's regular rate and rhythm without murmurs. Abdomen is soft positive bowel sounds nontender. Extremities without cyanosis clubbing edema. Neurologic exam is nonfocal. Objective Labs Result Diagrams: 02/19/18 05:27 02/19/18 05:27 Labs: Laboratory Results - last 24 hr 02/16/18 02/19/18 02/19/18 08:08 05:27 05:27 WBC 5.7 RBC 4.35 L Hgb 13.9 Hct 40.0 L MCV 91.9 MCH 31.9 MCHC 34.8 RDW 13.4 Plt Count 186 Neut % (Auto) 61.5 Lymph % (Auto) 20.3 L [place] % (Auto) 11.6 Eos % (Auto) 5.9 H Baso % (Auto) 0.7 Neut # (Auto) 3500 Sodium 129 L Potassium 3.4 Chloride 91.0 L Carbon Dioxide 27.0 BUN 9.0 Creatinine 0.80 Estimated GFR > 60.0 BUN/Creatinine Ratio 11.3 Glucose 84 Serum Osmolality 236 L Calcium 9.3 Urine Osmolality 185 L Discharge Plan Discharge Plan Patient Disposition: Home, Self-Care Provider Discharge Instructions Diet: Diet as Tolerated Activity: Mobilize as much as possible Wound Care Report to your healthcare provider any signs of infection, such as:: chills, fever, night sweats and increased pain Discharge Data Primary Care Provider: Zackary Hoover Attending Provider: Anabel Montana Admit Date/Time: 02/16/18 01:53
--- NOTE | 2018-02-19 15:25 | CM.DPC ---
DC Note: PT recommending SNF. Dr Cote agrees SNF would be the safest plan. Pt refuses SNF and spouse Avani feels pt is at his baseline. This TWISTER FRAME TENDER reviewed plan w/spouse Avani while assisting her to her car in a bariatric w/c. Avani works at [employer] approx 6 hrs weekly. She has worked there since 2001. Pt and Avani live in a single wide trailer on property they own, son lives on the property too and can assist prn. Avani denies the need for HH and feels they manage well at home. See PT note for detail; pt requires 1 person assist and is a fall risk but both pt/spouse agree on home plan today. DAVIE Pham
--- NOTE | 2018-02-19 15:54 | PC.NURSE ---
DISCHARGE NOTE: EDUCATION PROVIDED ON DI FOR HYPONATREMIA, FOLLOW-UP VISIT, PER PT FOLLOW-UP VISIT PRESCHEDULED, HOME MEDICATIONS, AND STROKE. PT AND VERBALIZED UNDERSTANDING. ESCORTED OUT VIA W/C WITH ALL PERSONAL BELONGINGS BY STAFF MEMBER AND SPOUSE.
== END 2018-02-19 16:00 | disposition home or self-care (01) | DRG 641 ==
LOC: ED 22:35 → AC 02-16 07:04
PROVIDERS: Family Medicine; Admitting Provider Family Medicine; Emergency Provider Emergency Medicine; Family Provider Family Medicine; PCP Family Medicine; Visit Provider Family Medicine
DX: E87.1 Hypo-osmolality and hyponatremia (principal); E86.0 Dehydration; R41.0 Disorientation, unspecified; E03.9 Hypothyroidism, unspecified; F32.9 Major depressive disorder, single episode, unspecified; I10 Essential (primary) hypertension; R53.1 Weakness; R10.9 Unspecified abdominal pain
CPT/HCPCS: 36415; 36591; 36592; 70450; 71046; 74022; 76700; 80048; 81001; 83605; 83735; 83930; 83935; 84145; 84300; 84439; 84443; 84484; 85025; 85651; 87086; 93005; 93041; 96374; 97116; 97162; 97530; 99283; 99285; C9113; J1650; J2405

== ENCOUNTER 2018-05-29 15:33 | Emergency (ER) | payer MEDICARE, MEDICAID, SELFPAY ==
[2018-02-16 03:12] VITALS: BMI 30.1
[2018-05-29 16:01] VITALS: BP 169/83; PULSE 69; RESP 18; TEMP 36.2; O2SAT 100; BMI 31.4
--- NOTE | 2018-05-29 16:59 | ED.EXTPRO ---
HPI - Extremity Problem <Cecy Marion PA-C - Last Filed: 05/29/18 21:40> General Chief complaint: Extremity Problem,Nontraumatic Stated complaint: RT ANKLE BLISTER BURST, STILL RUNNING Time Seen by Provider: 05/29/18 16:46 Source: patient and family Mode of arrival: ambulatory Limitations: no limitations History of Present Illness HPI Narrative: This 72-year-old gentleman comes in due to persistent swelling and a ruptured blister on his right leg. He states that this is tender and has been weeping clear fluid. He has a little bit of clear drainage out of the other leg as well. He was hospitalized recently for hyponatremia. He and his report that he was on 80 mg of Lasix previously, but now on 40 mg daily with 20meq potassium). He states that he always has some leg swelling but this has been worse since he got out of the hospital. He is not having any new calf pain, dyspnea, chest pain or any other new symptoms. He has been drinking Gatorade regularly to help with sodium. Related Data Home Medications Medication Instructions Recorded Confirmed hydrochlorothiazide 25 mg PO QDAY #0 01/09/13 02/15/18 potassium chloride 10 meq PO QDAY #0 01/09/13 02/15/18 pravastatin [Pravachol] 60 mg PO HS #0 01/09/13 02/15/18 amlodipine 10 mg PO DAILY 02/15/18 02/15/18 fluticasone 2 spray INTRANASAL DAILY 02/15/18 02/15/18 furosemide 20 mg PO DAILY 02/15/18 02/15/18 levothyroxine 75 mcg PO DAILY 02/15/18 02/15/18 lisinopril 80 mg PO DAILY 02/15/18 02/15/18 nortriptyline 20 mg PO QHS 02/15/18 02/15/18 pantoprazole [Protonix] 40 mg PO DAILY 02/15/18 02/15/18 tamsulosin 2 cap PO QHS 02/15/18 02/15/18 Allergies Allergy/AdvReac Type Severity Reaction Status Date / Time Penicillins [PENICILLINS] AdvReac Severe IT PIERCE Verified 02/16/18 00:58 LIKE MAD NOTHING DIGESTS Review of Systems <Cecy Marion PA-C - Last Filed: 05/29/18 21:40> Review of Systems All systems reviewed & are unremarkable except as noted in HPI and below Exam <VIKTORIA Gibbs Last Filed: 05/29/18 21:40> Narrative Exam Narrative: GENERAL APPEARANCE: Patient sitting comfortably, in no distress. NECK/THYROID: Neck supple LUNGS: Clear to auscultation bilaterally. HEART: Regular rate and rhythm without murmur, normal S1, S2, no S3 or S4. EXTREMITIES: No cyanosis, moderate pitting to bilateral shins. No calf tenderness DERMATOLOGIC: Both LEs have xu venous stasis changes. There is an unroofed 5 cm bullous lesion on the right lateral kong Initial Vital Signs Initial Vital Signs: Vital Signs Temperature 97.1 F L 05/29/18 16:01 Pulse Rate 69 05/29/18 16:01 Respiratory Rate 18 05/29/18 16:01 Blood Pressure 169/83 H 05/29/18 16:01 Pulse Oximetry 100 05/29/18 16:01 <DO Martin Burns Last Filed: 06/01/18 07:42> Initial Vital Signs Initial Vital Signs: Vital Signs Temperature 97.1 F L 05/29/18 16:01 Pulse Rate 69 05/29/18 16:01 Respiratory Rate 18 05/29/18 16:01 Blood Pressure 169/83 H 05/29/18 16:01 Pulse Oximetry 100 05/29/18 16:01 Course <VIKTORIA Gibbs Last Filed: 05/29/18 21:40> Vital Signs - 8 hr 05/29/18 16:01 05/29/18 18:22 Temperature 97.1 F L Pulse Rate 69 76 Respiratory Rate 18 18 Blood Pressure 169/83 H Blood Pressure [Left Arm] 172/77 H Pulse Oximetry 100 100 <DO Martin Burns Last Filed: 06/01/18 07:42> Vital Signs - 8 hr 05/29/18 16:01 05/29/18 18:22 Temperature 97.1 F L Pulse Rate 69 76 Respiratory Rate 18 18 Blood Pressure 169/83 H Blood Pressure [Left Arm] 172/77 H Pulse Oximetry 100 100 Discharge Plan Departure Patient Disposition: Home Clinical Impression: Venous stasis dermatitis of both lower extremities Discharge Date/Time: 05/29/18 18:42 Interventions: ED Discharge Assessment Last Done: 05/29/18 18:41 Instructions: DI for Edema Due to Venous Stasis Activity Restrictions/Additional Instructions: We have wrapped your legs for now and you should elevate them above your heart as much as possible. Drink when you are thirsty but do not force yourself to drink extra fluids. Increase your Furosemide (Lasix) to 40mg with breakfast and lunch for the next 2 days, and take 2 extra of your 10mg potassium on those days. Call Dr. Hoover's office on Thursday for follow up and further instructions (he may want you to resume your old dose of Lasix or may want to have you stay on the higher dose until he sees you). Return here if you have any acutely worsening symptoms in the interim Prescriptions: No Action pravastatin [Pravachol] 40 MG tablet 60 mg PO HS Qty: 0 RF: 0 hydrochlorothiazide 25 MG tablet 25 mg PO QDAY Qty: 0 RF: 0 potassium chloride 10 MEQ tablet extended release 10 meq PO QDAY Qty: 0 RF: 0 levothyroxine 75 mcg tablet 75 mcg PO DAILY RF: 0 tamsulosin 0.4 mg capsule,extended release 24hr 2 cap PO QHS RF: 0 amlodipine 10 mg tablet 10 mg PO DAILY RF: 0 nortriptyline 10 mg capsule 20 mg PO QHS RF: 0 furosemide 20 mg tablet 20 mg PO DAILY RF: 0 lisinopril 40 mg tablet 80 mg PO DAILY RF: 0 fluticasone 50 mcg/actuation spray,suspension 2 spray Intranasal DAILY RF: 0 pantoprazole [Protonix] 40 MG tablet,delayed release (DR/EC) 40 mg PO DAILY RF: 0 Referrals: Zackary Hoover MD [Primary Care Provider] - <Latesha Khoury DO - Last Filed: 06/01/18 07:42> Cosign ED Attending Dinora Attestation: I was immediately available in the department for consultation. Documentation has been reviewed. I agree with assessment and plan.
--- NOTE | 2018-05-29 18:16 | PC.NURSE ---
bordered wound dressing to right lateral large weeping blister.
[2018-05-29 18:22] VITALS: BP 172/77; PULSE 76; RESP 18; O2SAT 100
== END 2018-05-29 18:42 | disposition home or self-care (01) ==
PROVIDERS: Emergency Provider Internal Medicine; Family Provider Family Medicine; PCP Family Medicine
DX: I87.2 Venous insufficiency (chronic) (peripheral) (principal)
CPT/HCPCS: 99282

== ENCOUNTER → 2018-06-11 13:49 | Outpatient (CLI) | payer MEDICARE, MEDICAID, SELFPAY ==
[2018-02-16 03:12] VITALS: BMI 30.1
--- NOTE | 2018-06-11 | DI.ECHO.S_ITS ---
[facility] +---------+ : : [address] : : : : [id number] : : : : Phone: [phone] Echocardiogram Report + + :Name: SHI POON Study Date: 06/11/2018 Height: 70 in : :[facility] Exam Location: [facility] Weight: 228 lb : : Gender: Male BSA: 2.2 m2 : :: 1945 Age: 73 yrs BP: 170/90 mmHg: :Reason For Study: Hypertension : :Ordering Physician: Zackary : :Kiko Performed By: Lea Page : + + Interpretation Summary There is borderline concentric left ventricular hypertrophy. The ejection fraction is estimated to be 60-65%. The right ventricle is mildly dilated. The right ventricular systolic function is normal. The left atrium is moderately dilated. The mitral valve leaflets appear thickened, but open well. The aortic valve is mildly calcified. There is reduced mobility of the right coronary cusp. There is no hemodynamically significant valvular aortic stenosis. There is mild aortic regurgitation. There is trace tricuspid regurgitation. The right ventricular systolic pressure is estimated at 44 mmHg assuming a right atrial pressure of 15 mm Hg. The ascending aorta is mild-moderately enlarged. Procedure: A two-dimensional transthoracic echocardiogram with color flow and Doppler was performed. The study quality was technically adequate. There is no prior echocardiogram noted for this patient. The patient was in normal sinus rhythm during the exam. Left Ventricle: There is borderline concentric left ventricular hypertrophy. The left ventricle is normal in size. The ejection fraction is estimated to be 60-65%. Left ventricular wall motion is normal. Assessment of diastolic parameters suggests a pseudonormalization pattern, consistent with elevated filling pressures. Right Ventricle: The right ventricle is mildly dilated. The right ventricular systolic function is normal. Atria: The left atrium is moderately dilated. Right atrial size is normal. There is no Doppler evidence for an interatrial shunt. Mitral Valve: The mitral valve leaflets appear thickened, but open well. There is mild to moderate mitral annular calcification. There is trace mitral regurgitation. Aortic Valve: The aortic valve is trileaflet. The aortic valve is mildly calcified. There is reduced mobility of the right coronary cusp. There is no hemodynamically significant valvular aortic stenosis. There is mild aortic regurgitation. There is an eccentric jet of aortic insufficiency directed against the anterior mitral leaflet. Tricuspid Valve: The tricuspid valve is normal in structure and function. There is trace tricuspid regurgitation. The right ventricular systolic pressure is estimated at 44 mmHg assuming a right atrial pressure of 15 mm Hg. Pulmonic Valve: The pulmonic valve is not well visualized. There is trace pulmonic regurgitation. Great Vessels: The aortic root is normal size. The ascending aorta is mild- moderately enlarged. The aortic arch could not be visualized. The pulmonary artery is not well visualized, but is probably normal size. The IVC is dilated (diameter is greater than 2.1 cm) and it collapses less than 50% with a sniff. This suggests a high right atrial pressure of 15 mm Hg. Pericardium/ Pleura There is no pericardial effusion. There is no pleural effusion. MMode/2D Measurements & Calculations LVIDd: 4.0 cm LVOT diam: 2.1 cm LVIDs: 3.0 cm Ao root diam: 3.7 cm FS: 26.1 % asc Aorta Diam: 4.0 cm EPSS: 0.30 cm IVSd: 1.0 cm LVPWd: 1.3 cm LV tapia. diameter/BSA (cm/m^2): 1.8 LV sys. diameter/BSA (cm/m^2): 1.4 LA A2 area: 25.9 cm2 RA long axis: 4.5 cm LA A4 area: 26.0 cm2 RA area: 17.7 cm2 LA length (vol): 5.8 cm RA vol: 59.2 ml LA vol: 98.6 ml RA : 26.8 ml/m2 LA vol index: 44.7 ml/m2 IVC diam: 2.2 cm RVD1 (basal): 4.8 cm TAPSE: 2.3 cm Doppler Measurements & Calculations Ao V2 max: 162.3 cm/sec LVOT Max Pete: 90.8 cm/sec Ao V2 mean: 111.8 cm/sec LV V1 max P.3 mmHg Ao max P.5 mmHg LV V1 VTI: 22.8 cm Ao mean P.6 mmHg DAGOBERTO(I,D): 2.4 cm2 Ao V2 VTI: 32.9 cm DAGOBERTO(V,D): 2.0 cm2 sev ratio: 0.69 DAGOBERTO indexed to BSA (cm^2/m^2): 1.1 AI P1/2t: 414.1 msec AI dec slope: 249.6 cm/sec2 MV E max pete: 137.4 cm/sec TR max pete: 268.2 cm/sec MV A max pete: 101.4 cm/sec TR max P.8 mmHg MV E/A: 1.4 PA V2 max: 74.1 cm/sec Med Peak E' Pete: 4.9 cm/sec PA V2 mean: 55.7 cm/sec E/E' med: 28.3 PA mean P.3 mmHg Lat Peak E' Pete: 6.5 cm/sec PA Accel Time: 0.09 sec E/E' lat: 21.1 E/e' average: 24.7 MV dec time: 0.33 sec MV P1/2t: 95.1 msec MVA(VTI): 1.7 cm2 MV V2 mean: 69.9 cm/sec MV P1/2t max pete: 138.3 cm/sec MV mean P.4 mmHg MVA(P1/2t): 2.3 cm2 MV V2 VTI: 47.7 cm Reading Physician:04:24 PM
== END ==
PROVIDERS: Family Provider Family Medicine; PCP Family Medicine; Visit Provider Family Medicine
DX: I08.0 Rheumatic disorders of both mitral and aortic valves (principal); I10 Essential (primary) hypertension; R60.9 Edema, unspecified
CPT/HCPCS: 93306

== ENCOUNTER → 2018-06-24 14:17 | Outpatient (CLI) | payer MEDICARE, MEDICAID, SELFPAY ==
[2018-02-16 03:12] VITALS: BMI 30.1
--- NOTE | 2018-06-24 | OV.WND_ITS ---
Progress Note Details Patient Name: Jay Reed Patient Number: [id number] PatientPatientDate: 06/24/2018 Clinician: Beatriz Stewart Clinician Cosigner: Nidhi Pressley Physician / Boat Designer: Mikael Francis SUBJECTIVE Chief Complaint This information was obtained from the patient Bilateral lower extremity edema with blisters. Allergies Many oral antibiotics General Notes: Patient reports stomach issues with most oral antibiotics. HPI This information was obtained from the patient 06/24/18. Seen by Dr. Francis. The patient's new to our clinic and presents with bilateral lower leg venous ulcers that have been present to a varying degree for many months but have worsened recently and become painful with heavy drainage. He's on high does Lasix for congestive heart failure and feels his leg swelling is significant but stable. He reports severe GI symptoms on oral antibiotics and is resistant to taking these despite the fact his leg ulcers tend to be infected. He also does not routinely wear compression stockings despite having bilateral lower leg chronic venous hypertension. Family History This information was obtained from the patient Diabetes - Father, Heart Disease - Mother, Father, Stroke - Mother, Sibling Social History This information was obtained from the patient Never smoker, Alcohol Use - None, Caffeine Use - 2-3/day, Children - 6, Lives in - Private home- mobile home, Marital Status - - Avani, Retired Past Medical History This information was obtained from the patient Patient has a medical history of: Congestive Heart Failure Hypertension Hearing Loss Poor vision Surgical History This information was obtained from the patient Patient has a surgical history of: Tonsilectomy Eye surgery (as a child) Complaints and Symptoms This information was obtained from the patient Patient complains of: General Notes: I have reviewed and concur with the Review of Systems and Past Family Social History documents completed by the clinician, I have reviewed and concur with the Wound Assessment document completed by the clinician Cardiovascular (Central/Peripheral): Lower extremity (leg) swelling Ear/Nose/Mouth/Throat: Hearing Loss / Aid Eyes: Vision Changes Hematologic/Lymphatic: Bleeding Tendency Integumentary (Hair/Skin/Nails): Open Sore Musculoskeletal: Assistive Devices Prior Wound History: Drainage, Erythema, Pain Patient denies complaints or symptoms related to: Cardiovascular (Central/Peripheral): Intermittent Claudication, Lower extremity (leg) resting pain Constitutional Symptoms (General Health): Chills, Fever Hematologic/Lymphatic: Bleeding / Clotting Disorders Neurological: Loss of Protective Sensation Psychiatric: Memory Loss Respiratory: Shortness of Breath General Notes: Not up to date. Additional Information Does patient have a history of Cancer? Yes? Complete all questions.: No Medications Darwin Back and Body 500 mg-32.5 mg tablet oral 1 1 tablet oral every 6-8 hours as needed pravastatin 40 mg tablet oral 1.5 1.5 tablet oral once daily tamsulosin 0.4 mg capsule oral 2 2 capsule,extended release 24hr oral once daily furosemide 20 mg tablet oral 2 2 tablet oral twice daily potassium chloride ER 10 mEq capsule,extended release oral 2 2 capsule, extended release oral twice daily pantoprazole 40 mg tablet,delayed release oral 1 1 tablet,delayed release (DR/EC ) oral once daily levothyroxine 100 mcg tablet oral 1 1 tablet oral once daily OBJECTIVE Constitutional BP elevated; Afebrile; Alert and in no distress. Well developed. Alert. Clean appearing.. Height/Length: 71 in (180.34 cm), Weight: 228.8 lbs (104 kgs), BMI: 31.9, Temperature: 98.5 ?F (36.94 ?C), Pulse: 66 bpm, Respiratory Rate: 18 breaths/min, Blood Pressure: 180/86 mmHg, Pulse Oximetry: 99 %. Ears, Nose, Mouth, and Throat: Moderate hearing deficit. Respiratory: No respiratory distress. Even respirations and without use of accessory muscles.. Cardiovascular: monophasic pedal pulses bilaterally. 2+ bilateral lower leg edema. Gastrointestinal (GI): Obese. Nondistended.. Integumentary (Hair, Skin) Mild periwound erythema with warmth; adeherent yellow drainage in periulcer areas. Refer to appropriate clinician wound documentation for this visit; right and left lower leg ulcers extend to subcut with bases partially covered with pink granulation, remainder fibrin and slough. Wound #1 Left, Anterior Leg is a chronic Full Thickness Venous Ulcer and has received a status of Not Healed. Initial wound encounter measurements are 3.8cm length x 4.5cm width x 0.1cm depth, with an area of 17.1 sq cm and a volume of 1.71 cubic cm. No tunneling has been noted. No sinus tract has been noted. No undermining has been noted. There is a copious amount of serous drainage noted which has no odor. The patient reports a wound pain of level 0/10. The wound margin is attached. Wound bed has Yes epithelialization, No eschar, Yes slough, Yes bright red, pink, firm granulation. The periwound skin exhibited: Edema, Moist, Erythema. The periwound skin did not exhibit: Brawny Induration, Excoriation, Induration, Callus, Crepitus, Fluctuance, Friable, Rash, Dry/Scaly, Maceration, Atrophie Joana, Cyanosis, Ecchymosis, Hemosiderosis, Pallor, Rubor. The temperature of the periwound skin is WNL. Periwound skin presents with s/s of infection. Confirmation Description and Treatment Plan is: Signs and Symptoms Present. Local Pulse is Doppler. Wound #2 Left, Lateral Leg is a chronic Full Thickness Venous Ulcer and has received a status of Not Healed. Initial wound encounter measurements are 8.5cm length x 8.5cm width x 0.1cm depth, with an area of 72.25 sq cm and a volume of 7.225 cubic cm. No tunneling has been noted. No sinus tract has been noted. No undermining has been noted. There is a copious amount of serous drainage noted which has no odor. The patient reports a wound pain of level 0/10. The wound margin is attached. Wound bed has No epithelialization, No eschar, Yes slough, Yes bright red, pink, firm granulation. The periwound skin exhibited: Edema, Moist, Maceration, Erythema. The periwound skin did not exhibit: Brawny Induration, Excoriation, Induration, Callus, Crepitus, Fluctuance, Friable, Rash, Dry/Scaly, Atrophie Joana, Cyanosis, Ecchymosis, Hemosiderosis, Pallor, Rubor. The temperature of the periwound skin is WNL. Periwound skin presents with s/s of infection. Confirmation Description and Treatment Plan is: Signs and Symptoms Present. Local Pulse is Doppler. Wound #3 Right, Lateral, Posterior Leg is a chronic Full Thickness Venous Ulcer and has received a status of Not Healed. Initial wound encounter measurements are 12.2cm length x 12.5cm width x 0.1cm depth, with an area of 152.5 sq cm and a volume of 15.25 cubic cm. No tunneling has been noted. No sinus tract has been noted. No undermining has been noted. There is a copious amount of serous drainage noted which has no odor. The patient reports a wound pain of level 0/10. The wound margin is attached. Wound bed has No epithelialization, No eschar, Yes slough, Yes bright red, pink, firm granulation. The periwound skin exhibited: Edema, Moist, Maceration, Erythema. The periwound skin did not exhibit: Brawny Induration, Excoriation, Induration, Callus, Crepitus, Fluctuance, Friable, Rash, Dry/Scaly, Atrophie [place], Cyanosis, Ecchymosis, Hemosiderosis, Pallor, Rubor. The temperature of the periwound skin is WNL. Periwound skin presents with s/s of infection. Confirmation Description and Treatment Plan is: Signs and Symptoms Present. Local Pulse is Doppler. General Notes: Satellite ulcer measures 1.5x1.5x0.1cm. Neurological: Cranial nerves grossly intact with symmetric function normal by informal observation.. ASSESSMENT Active Problems ICD-10 (Encounter Diagnosis) L97.812 - Non-pressure chronic ulcer of other part of right lower leg with fat layer exposed (Encounter Diagnosis) L97.822 - Non-pressure chronic ulcer of other part of left lower leg with fat layer exposed (Encounter Diagnosis) L08.9 - Local infection of the skin and subcutaneous tissue, unspecified (Encounter Diagnosis) I87.333 - Chronic venous hypertension (idiopathic) with ulcer and inflammation of bilateral lower extremity (Encounter Diagnosis) I50.20 - Unspecified systolic (congestive) heart failure PROCEDURES Wound #1 Wound #1 (Venous Ulcer) is located on the left, anterior leg. A skin/ subcutaneous tissue level surgical debridement with a total area debrided of 8.55 sq cm was performed by Mikael Francis MD. Subcutaneous was removed along with devitalized tissue: exudate and slough. The following instrument(s) were used: curette. Pain control was achieved using 4% Lido. A time out was conducted prior to the start of the procedure. A minimal amount of bleeding was controlled with pressure. The procedure was tolerated well with a pain level of 3 throughout and a pain level of 1 following the procedure. Post Debridement Measurements: 3.8cm length x 4.5cm width x 0.2cm depth; with an area of 17.1 sq cm and a volume of 3.42 cubic cm; Wound #2 Wound #2 (Venous Ulcer) is located on the left, lateral leg. A skin/ subcutaneous tissue level surgical debridement with a total area debrided of 36.125 sq cm was performed by Mikael Francis MD. Subcutaneous was removed along with devitalized tissue: exudate and slough. The following instrument(s) were used: curette. Pain control was achieved using 4% Lido. A time out was conducted prior to the start of the procedure. A minimal amount of bleeding was controlled with pressure. The procedure was tolerated well with a pain level of 3 throughout and a pain level of 1 following the procedure. Post Debridement Measurements: 8.5cm length x 8.5cm width x 0.2cm depth; with an area of 72.25 sq cm and a volume of 14.45 cubic cm; Wound #3 Wound #3 (Venous Ulcer) is located on the right, lateral, posterior leg. A skin/ subcutaneous tissue level surgical debridement with a total area debrided of 152.5 sq cm was performed by Mikael Francis MD. Subcutaneous was removed along with devitalized tissue: exudate and slough. The following instrument(s) were used: curette. Pain control was achieved using 4% Lido. A time out was conducted prior to the start of the procedure. A minimal amount of bleeding was controlled with pressure. The procedure was tolerated well with a pain level of 3 throughout and a pain level of 1 following the procedure. Post Debridement Measurements: 12.2cm length x 12.5cm width x 0.2cm depth; with an area of 152.5 sq cm and a volume of 30.5 cubic cm; Additional Information Muscle fascia or bone removed and sent to pathology?: No Muscle fascia or bone removed and sent to pathology?: No Muscle fascia or bone removed and sent to pathology?: No PLAN Wound Orders: Wound #1 Left, Anterior Leg Anesthetic Topical Xylocaine to wound bed. - In clinic only. Cleanser Cleanse Wound: - Normal saline and gauze. May use distilled water at home. May Shower. - Cover in shower with plastic bag and tape or you may purchase a cast protector at your local [facility] etc. Topical Treatments Antibiotic/Antimicrobial Ointment/Cream. - Gentamicin ointment. Dressings Primary dressing: - LoiLo. Cover and secure with: - Cutimed Sorbion Sachet S, secured with roll gauze. May use poise pads at home if you run out of bandages. Change Dressing: - Every other day or more as needed to control drainage. Wound #2 Left, Lateral Leg Anesthetic Topical Xylocaine to wound bed. - In clinic only. Cleanser Cleanse Wound: - Normal saline and gauze. May use distilled water at home. May Shower. - Cover in shower with plastic bag and tape or you may purchase a cast protector at your local [facility] etc. Topical Treatments Antibiotic/Antimicrobial Ointment/Cream. - Gentamicin ointment. Dressings Primary dressing: - Aquacel Ag. Cover and secure with: - Cutimed Sorbion Sachet S, secured with roll gauze. May use poise pads at home if you run out of bandages. Change Dressing: - Every other day or more as needed to control drainage. Wound #3 Right, Lateral, Posterior Leg Anesthetic Topical Xylocaine to wound bed. - In clinic only. Cleanser Cleanse Wound: - Normal saline and gauze. May use distilled water at home. May Shower. - Cover in shower with plastic bag and tape or you may purchase a cast protector at your local [facility] etc. Topical Treatments Antibiotic/Antimicrobial Ointment/Cream. - Gentamicin ointment. Dressings Primary dressing: - Aquacel Ag. Cover and secure with: - Cutimed Sorbion Sachet S, secured with roll gauze. May use poise pads at home if you run out of bandages. Change Dressing: - Every other day or more as needed to control drainage. Additional Orders: Compression/Edema Control Elevation of leg(s) above the level of the heart when sitting. - Please try to elevate above hip level. Avoid prolonged standing in one place. Single Layer Compression Hose - Tetragrip G to both legs. On in the morning, off at night. Follow-Up Appointments Return Appointment: - - One week. Other information: If you develop fever, chills, increased pain, drainage, redness or swelling please call our office. If after hours, respond to the ER. Should you experience any significant changes in your wound(s) or have any questions regarding your home care instructions please contact the wound center @ [phone]. If after hours, contact your primary care physician or go to the hospital emergency room. Scribing Attestation I attest, as the nurse, that I scribed these orders for the physician. Laboratory: Culture Wound General Notes: Will call with culture results if any oral antibiotics are required. Supply order submitted through [employer], please expect delivery in the next 1-2 days. I've reviewed the clinician's documentation and agree with the evaluation and plan as written. In addition the patient's ulcers demonstrate evidence of non-viable devitalized tissue and they will continue to benefit from sharp debridement to help promote granulation and expedite healing. Also, I've cultured the right and left lower leg ulcers and will consider starting an oral antibiotic pending the results that the patient may be able to tolerate and to avoid IV antibiotics if possible. In the mean time he'll apply topical gentamicin ointment to the ulcer bases and wear compression stockings to help reduce the leg edema that in part is caused by his CHF. Electronic Signature(s) Signed By: Date: Mikael Francis MD 06/25/2018 12:00:44 Entered By: Mikael Francis on 06/25/2018 11:53:58
== END ==
PROVIDERS: Family Provider Family Medicine; PCP Family Medicine; Visit Provider Internal Medicine
DX: I87.313 Chronic venous hypertension (idiopathic) with ulcer of bilateral lower extremity (principal); L97.812 Non-pressure chronic ulcer of other part of right lower leg with fat layer exposed; L97.822 Non-pressure chronic ulcer of other part of left lower leg with fat layer exposed; L08.9 Local infection of the skin and subcutaneous tissue, unspecified; I50.20 Unspecified systolic (congestive) heart failure; R60.0 Localized edema
CPT/HCPCS: 11042; 11045; 87070; 87075; 87077; 87147; 87186; 87205; 99215

== ENCOUNTER → 2018-07-07 15:30 | Outpatient (CLI) | payer MEDICARE, MEDICAID, SELFPAY ==
[2018-02-16 03:12] VITALS: BMI 30.1
== END ==
PROVIDERS: Family Provider Family Medicine; PCP Family Medicine; Visit Provider Family Medicine
DX: I87.313 Chronic venous hypertension (idiopathic) with ulcer of bilateral lower extremity (principal); L97.811 Non-pressure chronic ulcer of other part of right lower leg limited to breakdown of skin; L97.821 Non-pressure chronic ulcer of other part of left lower leg limited to breakdown of skin; L08.9 Local infection of the skin and subcutaneous tissue, unspecified; I50.20 Unspecified systolic (congestive) heart failure
CPT/HCPCS: 97597; 97598; 99213

== ENCOUNTER → 2018-07-15 15:33 | Outpatient (CLI) | payer MEDICARE, MEDICAID, SELFPAY ==
[2018-02-16 03:12] VITALS: BMI 30.1
== END ==
PROVIDERS: Family Provider Family Medicine; PCP Family Medicine; Visit Provider Family Medicine
DX: I87.313 Chronic venous hypertension (idiopathic) with ulcer of bilateral lower extremity (principal); L97.811 Non-pressure chronic ulcer of other part of right lower leg limited to breakdown of skin; L97.821 Non-pressure chronic ulcer of other part of left lower leg limited to breakdown of skin; L08.9 Local infection of the skin and subcutaneous tissue, unspecified; I50.32 Chronic diastolic (congestive) heart failure; M79.604 Pain in right leg; M79.605 Pain in left leg
CPT/HCPCS: 97597; 97598; 99213

== ENCOUNTER → 2018-07-19 11:07 | Outpatient (CLI) | payer MEDICARE, MEDICAID, SELFPAY ==
[2018-02-16 03:12] VITALS: BMI 30.1
== END ==
PROVIDERS: Family Provider Family Medicine; PCP Family Medicine; Visit Provider Family Medicine
DX: I87.313 Chronic venous hypertension (idiopathic) with ulcer of bilateral lower extremity (principal); L97.811 Non-pressure chronic ulcer of other part of right lower leg limited to breakdown of skin; L97.821 Non-pressure chronic ulcer of other part of left lower leg limited to breakdown of skin; A49.01 Methicillin susceptible Staphylococcus aureus infection, unspecified site; I50.32 Chronic diastolic (congestive) heart failure
CPT/HCPCS: 99213

== ENCOUNTER → 2018-07-21 10:03 | Outpatient (CLI) | payer MEDICARE, MEDICAID, SELFPAY ==
[2018-02-16 03:12] VITALS: BMI 30.1
== END ==
PROVIDERS: PCP Family Medicine; Visit Provider Family Medicine
DX: I87.2 Venous insufficiency (chronic) (peripheral) (principal); L97.812 Non-pressure chronic ulcer of other part of right lower leg with fat layer exposed; L97.822 Non-pressure chronic ulcer of other part of left lower leg with fat layer exposed
CPT/HCPCS: 29581

== ENCOUNTER → 2018-07-26 13:49 | Outpatient (CLI) | payer MEDICARE, MEDICAID, SELFPAY ==
[2018-02-16 03:12] VITALS: BMI 30.1
== END ==
PROVIDERS: Family Provider Family Medicine; PCP Family Medicine; Visit Provider Family Medicine
DX: I87.2 Venous insufficiency (chronic) (peripheral) (principal); L97.821 Non-pressure chronic ulcer of other part of left lower leg limited to breakdown of skin; L97.811 Non-pressure chronic ulcer of other part of right lower leg limited to breakdown of skin; M79.605 Pain in left leg; M79.604 Pain in right leg; I50.32 Chronic diastolic (congestive) heart failure
CPT/HCPCS: 29581; 99203; 99213

== ENCOUNTER → 2018-07-28 14:52 | Outpatient (CLI) | payer MEDICARE, MEDICAID, SELFPAY ==
[2018-02-16 03:12] VITALS: BMI 30.1
== END ==
PROVIDERS: Family Provider Family Medicine; PCP Family Medicine; Visit Provider Family Medicine
DX: I87.313 Chronic venous hypertension (idiopathic) with ulcer of bilateral lower extremity (principal); L97.812 Non-pressure chronic ulcer of other part of right lower leg with fat layer exposed; L97.822 Non-pressure chronic ulcer of other part of left lower leg with fat layer exposed; I50.32 Chronic diastolic (congestive) heart failure
CPT/HCPCS: 99212

== ENCOUNTER → 2018-07-28 15:21 | Outpatient (CLI) | payer MEDICARE, MEDICAID, SELFPAY ==
[2018-02-16 03:12] VITALS: BMI 30.1
--- NOTE | 2018-07-28 | DI.US.S_ITS ---
PROCEDURE: US JAIME LIMITED SINGLE LEVEL INDICATIONS: NON-CHRONIC PRESSURE ULCER TECHNIQUE: Ankle-brachial indices were obtained bilaterally and recorded. COMPARISONS: FINDINGS: Right ankle brachial index (JAIME): 1.0 Left ankle brachial index (JAIME): 0.9 IMPRESSION: 1. Normal right JAIME. 2. Mild to moderate disease consistent with claudication; duplex imaging warranted involving the left leg. Dictated by: Cory LEVY Interpreted: Jax Stanley MD on 07/28/2018 at 16:59 Approved by: Jax Stanley M.D. on 07/28/2018 at 17:20
== END ==
PROVIDERS: PCP Family Medicine; Visit Provider Family Medicine
DX: I87.333 Chronic venous hypertension (idiopathic) with ulcer and inflammation of bilateral lower extremity (principal); L97.812 Non-pressure chronic ulcer of other part of right lower leg with fat layer exposed; L97.822 Non-pressure chronic ulcer of other part of left lower leg with fat layer exposed; I87.313 Chronic venous hypertension (idiopathic) with ulcer of bilateral lower extremity; I50.32 Chronic diastolic (congestive) heart failure
CPT/HCPCS: 93922; 99212

== ENCOUNTER → 2018-07-29 13:44 | Outpatient (CLI) | payer MEDICARE, MEDICAID, SELFPAY ==
[2018-02-16 03:12] VITALS: BMI 30.1
== END ==
PROVIDERS: PCP Family Medicine; Visit Provider Family Medicine
DX: I87.313 Chronic venous hypertension (idiopathic) with ulcer of bilateral lower extremity (principal); L97.822 Non-pressure chronic ulcer of other part of left lower leg with fat layer exposed; L97.811 Non-pressure chronic ulcer of other part of right lower leg limited to breakdown of skin
CPT/HCPCS: 29581

== ENCOUNTER → 2018-08-05 14:51 | Outpatient (CLI) | payer MEDICARE, MEDICAID, SELFPAY ==
[2018-02-16 03:12] VITALS: BMI 30.1
== END ==
PROVIDERS: PCP Family Medicine; Visit Provider Family Medicine
DX: I87.313 Chronic venous hypertension (idiopathic) with ulcer of bilateral lower extremity (principal); L97.812 Non-pressure chronic ulcer of other part of right lower leg with fat layer exposed; L97.822 Non-pressure chronic ulcer of other part of left lower leg with fat layer exposed; I50.9 Heart failure, unspecified; Z48.817 Encounter for surgical aftercare following surgery on the skin and subcutaneous tissue
CPT/HCPCS: 97597; 97598

== ENCOUNTER → 2018-08-12 14:32 | Outpatient (CLI) | payer MEDICARE, MEDICAID, SELFPAY ==
[2018-02-16 03:12] VITALS: BMI 30.1
== END ==
PROVIDERS: PCP Family Medicine; Visit Provider Family Medicine
DX: L97.812 Non-pressure chronic ulcer of other part of right lower leg with fat layer exposed (principal); L97.822 Non-pressure chronic ulcer of other part of left lower leg with fat layer exposed; I87.333 Chronic venous hypertension (idiopathic) with ulcer and inflammation of bilateral lower extremity; I50.32 Chronic diastolic (congestive) heart failure
CPT/HCPCS: 87070; 87075; 87077; 87147; 87186; 87205; 97597; 97598

== ENCOUNTER → 2018-08-16 12:44 | Outpatient (CLI) | payer MEDICARE, MEDICAID, SELFPAY ==
[2018-02-16 03:12] VITALS: BMI 30.1
--- NOTE | 2018-08-16 | DI.US.S_ITS ---
PROCEDURE: US VENOUS INSUFFICIENCY BILAT INDICATIONS: NON-CHRONIC PRESSURE ULCER TECHNIQUE: Real time scanning was performed of the lower extremity venous system, with imaging documentation, as well as Color and pulse Doppler interrogation. COMPARISON: None. FINDINGS: RIGHT LOWER EXTREMITY: The deep veins are normally compressible, and free of intraluminal thrombus. Color and pulse Doppler demonstrate normal intravascular flow. There is normal augmentation with distal compression maneuver. Mild reflux. Greater saphenous vein (GSV): No reflux Saphenofemoral junction (SFJ): No reflux. Anterior accessory GSV (AAGSV): No reflux. Small saphenous vein (SSV): Not evaluated. Curtain Inspector veins: 2 perforators involve the lower leg largest measuring 4.0 mm. LEFT LOWER EXTREMITY: The deep veins are normally compressible, and free of intraluminal thrombus. Color and pulse Doppler demonstrate normal intravascular flow. There is normal augmentation with distal compression maneuver. Mild reflux. Greater saphenous vein (GSV): No reflux. Anterior accessory GSV (AAGSV): No reflux. Small saphenous vein (SSV): Not evaluated. Curtain Inspector veins: 2 lower leg perforators, both measuring 3 mm. IMPRESSION: 1. Mild reflux within the deep system and no superficial reflux is seen. 2. Small bilateral perforators. Dictated by: Cory Bojorquez [facility] Interpreted: Jax Stanley MD on 08/16/2018 at 15:53 Approved by: Jax Stanley M.D. on 08/16/2018 at 16:19
== END ==
PROVIDERS: PCP Family Medicine; Visit Provider Family Medicine
DX: I87.333 Chronic venous hypertension (idiopathic) with ulcer and inflammation of bilateral lower extremity (principal); L97.812 Non-pressure chronic ulcer of other part of right lower leg with fat layer exposed; L97.822 Non-pressure chronic ulcer of other part of left lower leg with fat layer exposed; I87.2 Venous insufficiency (chronic) (peripheral); I97.821 Postprocedural cerebrovascular infarction following other surgery; I97.811 Intraoperative cerebrovascular infarction during other surgery; L08.9 Local infection of the skin and subcutaneous tissue, unspecified; I50.32 Chronic diastolic (congestive) heart failure
CPT/HCPCS: 29581; 93970

== ENCOUNTER → 2018-08-16 15:19 | Outpatient (CLI) | payer MEDICARE, MEDICAID, SELFPAY ==
[2018-02-16 03:12] VITALS: BMI 30.1
== END ==
PROVIDERS: PCP Family Medicine; Visit Provider Family Medicine
DX: I87.2 Venous insufficiency (chronic) (peripheral) (principal); L97.821 Non-pressure chronic ulcer of other part of left lower leg limited to breakdown of skin; L97.811 Non-pressure chronic ulcer of other part of right lower leg limited to breakdown of skin; L08.9 Local infection of the skin and subcutaneous tissue, unspecified; I50.32 Chronic diastolic (congestive) heart failure
CPT/HCPCS: 29581; 99213

== ENCOUNTER → 2018-08-23 13:54 | Outpatient (CLI) | payer MEDICARE, MEDICAID, SELFPAY ==
[2018-02-16 03:12] VITALS: BMI 30.1
== END ==
PROVIDERS: PCP Family Medicine; Visit Provider Family Medicine
DX: I87.313 Chronic venous hypertension (idiopathic) with ulcer of bilateral lower extremity (principal); L97.812 Non-pressure chronic ulcer of other part of right lower leg with fat layer exposed; L97.822 Non-pressure chronic ulcer of other part of left lower leg with fat layer exposed; I50.32 Chronic diastolic (congestive) heart failure; L08.9 Local infection of the skin and subcutaneous tissue, unspecified
CPT/HCPCS: 97597; 97598

== ENCOUNTER → 2018-08-30 10:59 | Outpatient (CLI) | payer MEDICARE, MEDICAID, SELFPAY ==
[2018-02-16 03:12] VITALS: BMI 30.1
== END ==
PROVIDERS: PCP Family Medicine; Visit Provider Family Medicine
DX: L97.812 Non-pressure chronic ulcer of other part of right lower leg with fat layer exposed (principal); L97.822 Non-pressure chronic ulcer of other part of left lower leg with fat layer exposed; I87.333 Chronic venous hypertension (idiopathic) with ulcer and inflammation of bilateral lower extremity; I50.32 Chronic diastolic (congestive) heart failure; L08.9 Local infection of the skin and subcutaneous tissue, unspecified
CPT/HCPCS: 11042; 29581; 87070; 87075; 87077; 87186; 87205

== ENCOUNTER → 2018-09-06 13:15 | Outpatient (CLI) | payer MEDICARE, MEDICAID, SELFPAY ==
[2018-02-16 03:12] VITALS: BMI 30.1
== END ==
PROVIDERS: PCP Family Medicine; Visit Provider Family Medicine
DX: I87.313 Chronic venous hypertension (idiopathic) with ulcer of bilateral lower extremity (principal); L97.812 Non-pressure chronic ulcer of other part of right lower leg with fat layer exposed; L97.822 Non-pressure chronic ulcer of other part of left lower leg with fat layer exposed; I50.32 Chronic diastolic (congestive) heart failure; L08.9 Local infection of the skin and subcutaneous tissue, unspecified
CPT/HCPCS: 97597; 97598

== ENCOUNTER → 2018-09-13 10:36 | Outpatient (CLI) | payer MEDICARE, MEDICAID, SELFPAY ==
[2018-02-16 03:12] VITALS: BMI 30.1
== END ==
PROVIDERS: PCP Family Medicine; Visit Provider Family Medicine
DX: I87.313 Chronic venous hypertension (idiopathic) with ulcer of bilateral lower extremity (principal); L97.812 Non-pressure chronic ulcer of other part of right lower leg with fat layer exposed; L97.822 Non-pressure chronic ulcer of other part of left lower leg with fat layer exposed; L08.9 Local infection of the skin and subcutaneous tissue, unspecified
CPT/HCPCS: 11042; 97597

== ENCOUNTER → 2018-09-17 08:57 | Outpatient (CLI) | payer MEDICARE, MEDICAID, SELFPAY ==
[2018-02-16 03:12] VITALS: BMI 30.1
== END ==
PROVIDERS: PCP Family Medicine; Visit Provider Family Medicine
DX: I87.313 Chronic venous hypertension (idiopathic) with ulcer of bilateral lower extremity (principal); L97.812 Non-pressure chronic ulcer of other part of right lower leg with fat layer exposed; L97.822 Non-pressure chronic ulcer of other part of left lower leg with fat layer exposed; L08.9 Local infection of the skin and subcutaneous tissue, unspecified
CPT/HCPCS: 29581; 99213

== ENCOUNTER → 2018-09-23 14:00 | Outpatient (CLI) | payer MEDICARE, MEDICAID, SELFPAY ==
[2018-02-16 03:12] VITALS: BMI 30.1
== END ==
PROVIDERS: PCP Family Medicine; Visit Provider Family Medicine
DX: I87.313 Chronic venous hypertension (idiopathic) with ulcer of bilateral lower extremity (principal); L97.812 Non-pressure chronic ulcer of other part of right lower leg with fat layer exposed; L97.822 Non-pressure chronic ulcer of other part of left lower leg with fat layer exposed; I50.32 Chronic diastolic (congestive) heart failure; L08.9 Local infection of the skin and subcutaneous tissue, unspecified; R19.7 Diarrhea, unspecified; T36.8X5A Adverse effect of other systemic antibiotics, initial encounter
CPT/HCPCS: 87070; 87075; 87077; 87186; 87205; 97597

== ENCOUNTER → 2018-09-30 11:09 | Outpatient (CLI) | payer MEDICARE, MEDICAID, SELFPAY ==
[2018-02-16 03:12] VITALS: BMI 30.1
== END ==
PROVIDERS: PCP Family Medicine; Visit Provider Family Medicine
DX: I87.313 Chronic venous hypertension (idiopathic) with ulcer of bilateral lower extremity (principal); L97.812 Non-pressure chronic ulcer of other part of right lower leg with fat layer exposed; L97.822 Non-pressure chronic ulcer of other part of left lower leg with fat layer exposed; L08.9 Local infection of the skin and subcutaneous tissue, unspecified; I50.32 Chronic diastolic (congestive) heart failure
CPT/HCPCS: 99212; 99213

== ENCOUNTER → 2018-10-07 15:10 | Outpatient (CLI) | payer MEDICARE, MEDICAID, SELFPAY ==
[2018-02-16 03:12] VITALS: BMI 30.1
== END ==
PROVIDERS: PCP Family Medicine; Visit Provider Family Medicine
DX: I87.313 Chronic venous hypertension (idiopathic) with ulcer of bilateral lower extremity (principal); L97.812 Non-pressure chronic ulcer of other part of right lower leg with fat layer exposed; L97.822 Non-pressure chronic ulcer of other part of left lower leg with fat layer exposed; I50.32 Chronic diastolic (congestive) heart failure; L08.9 Local infection of the skin and subcutaneous tissue, unspecified
CPT/HCPCS: 29581; 87070; 87075; 87205; 97597

== ENCOUNTER → 2018-10-11 15:03 | Outpatient (CLI) | payer MEDICARE, MEDICAID, SELFPAY ==
[2018-02-16 03:12] VITALS: BMI 30.1
== END ==
PROVIDERS: PCP Family Medicine; Visit Provider Family Medicine
DX: I87.313 Chronic venous hypertension (idiopathic) with ulcer of bilateral lower extremity (principal); L97.821 Non-pressure chronic ulcer of other part of left lower leg limited to breakdown of skin; L97.811 Non-pressure chronic ulcer of other part of right lower leg limited to breakdown of skin; I50.32 Chronic diastolic (congestive) heart failure
CPT/HCPCS: 99212; 99213

== ENCOUNTER → 2018-10-18 13:47 | Outpatient (CLI) | payer MEDICARE, MEDICAID, SELFPAY ==
[2018-02-16 03:12] VITALS: BMI 30.1
== END ==
PROVIDERS: PCP Family Medicine; Visit Provider Family Medicine
DX: I87.313 Chronic venous hypertension (idiopathic) with ulcer of bilateral lower extremity (principal); L97.812 Non-pressure chronic ulcer of other part of right lower leg with fat layer exposed; L97.822 Non-pressure chronic ulcer of other part of left lower leg with fat layer exposed; I50.32 Chronic diastolic (congestive) heart failure
CPT/HCPCS: 29581; 99213

== ENCOUNTER → 2018-10-25 13:22 | Outpatient (CLI) | payer MEDICARE, MEDICAID, SELFPAY ==
[2018-02-16 03:12] VITALS: BMI 30.1
== END ==
PROVIDERS: PCP Family Medicine; Visit Provider Family Medicine
DX: I87.313 Chronic venous hypertension (idiopathic) with ulcer of bilateral lower extremity (principal); L97.812 Non-pressure chronic ulcer of other part of right lower leg with fat layer exposed; L97.822 Non-pressure chronic ulcer of other part of left lower leg with fat layer exposed; I50.32 Chronic diastolic (congestive) heart failure; R60.0 Localized edema
CPT/HCPCS: 29581; 99213

== ENCOUNTER → 2018-11-01 10:10 | Outpatient (CLI) | payer MEDICARE, MEDICAID, SELFPAY ==
[2018-02-16 03:12] VITALS: BMI 30.1
== END ==
PROVIDERS: PCP Family Medicine; Visit Provider Family Medicine
DX: I87.313 Chronic venous hypertension (idiopathic) with ulcer of bilateral lower extremity (principal); L97.812 Non-pressure chronic ulcer of other part of right lower leg with fat layer exposed; L97.822 Non-pressure chronic ulcer of other part of left lower leg with fat layer exposed; I50.32 Chronic diastolic (congestive) heart failure
CPT/HCPCS: 29581; 99213

== ENCOUNTER → 2018-11-15 14:26 | Outpatient (CLI) | payer MEDICARE, MEDICAID, SELFPAY ==
[2018-02-16 03:12] VITALS: BMI 30.1
== END ==
PROVIDERS: PCP Family Medicine; Visit Provider Family Medicine
DX: L97.812 Non-pressure chronic ulcer of other part of right lower leg with fat layer exposed (principal); L97.822 Non-pressure chronic ulcer of other part of left lower leg with fat layer exposed; I87.333 Chronic venous hypertension (idiopathic) with ulcer and inflammation of bilateral lower extremity; I50.32 Chronic diastolic (congestive) heart failure; L03.115 Cellulitis of right lower limb
CPT/HCPCS: 87070; 87075; 87077; 87147; 87186; 87205; 97597; 99213

== ENCOUNTER → 2018-11-18 11:20 | Outpatient (CLI) | payer MEDICARE, MEDICAID, SELFPAY ==
[2018-02-16 03:12] VITALS: BMI 30.1
== END ==
PROVIDERS: PCP Family Medicine; Visit Provider Family Medicine
DX: I87.2 Venous insufficiency (chronic) (peripheral) (principal); L97.821 Non-pressure chronic ulcer of other part of left lower leg limited to breakdown of skin; L97.811 Non-pressure chronic ulcer of other part of right lower leg limited to breakdown of skin; M79.604 Pain in right leg; M79.605 Pain in left leg; L08.9 Local infection of the skin and subcutaneous tissue, unspecified
CPT/HCPCS: 29581

== ENCOUNTER → 2018-11-22 14:23 | Outpatient (CLI) | payer MEDICARE, MEDICAID, SELFPAY ==
[2018-02-16 03:12] VITALS: BMI 30.1
== END ==
PROVIDERS: PCP Family Medicine; Visit Provider Family Medicine
DX: I87.313 Chronic venous hypertension (idiopathic) with ulcer of bilateral lower extremity (principal); L97.822 Non-pressure chronic ulcer of other part of left lower leg with fat layer exposed; L03.115 Cellulitis of right lower limb; I50.32 Chronic diastolic (congestive) heart failure
CPT/HCPCS: 97597

== ENCOUNTER → 2018-11-25 14:57 | Outpatient (CLI) | payer MEDICARE, MEDICAID, SELFPAY ==
[2018-02-16 03:12] VITALS: BMI 30.1
== END ==
PROVIDERS: PCP Family Medicine; Visit Provider Family Medicine
DX: I87.313 Chronic venous hypertension (idiopathic) with ulcer of bilateral lower extremity (principal); L97.812 Non-pressure chronic ulcer of other part of right lower leg with fat layer exposed; L97.822 Non-pressure chronic ulcer of other part of left lower leg with fat layer exposed; I50.32 Chronic diastolic (congestive) heart failure; L03.115 Cellulitis of right lower limb
CPT/HCPCS: 87070; 87075; 87077; 87147; 87186; 87205; 97597; 99212

== ENCOUNTER → 2018-11-29 12:57 | Outpatient (CLI) | payer MEDICARE, MEDICAID, SELFPAY ==
[2018-02-16 03:12] VITALS: BMI 30.1
== END ==
PROVIDERS: PCP Family Medicine; Visit Provider Family Medicine
DX: I87.313 Chronic venous hypertension (idiopathic) with ulcer of bilateral lower extremity (principal); L97.812 Non-pressure chronic ulcer of other part of right lower leg with fat layer exposed; L97.822 Non-pressure chronic ulcer of other part of left lower leg with fat layer exposed
CPT/HCPCS: 29581

== ENCOUNTER → 2018-12-02 16:40 | Outpatient (CLI) | payer MEDICARE, MEDICAID, SELFPAY ==
[2018-02-16 03:12] VITALS: BMI 30.1
== END ==
PROVIDERS: PCP Family Medicine; Visit Provider Family Medicine
DX: I87.313 Chronic venous hypertension (idiopathic) with ulcer of bilateral lower extremity (principal); L97.812 Non-pressure chronic ulcer of other part of right lower leg with fat layer exposed; L97.822 Non-pressure chronic ulcer of other part of left lower leg with fat layer exposed; I50.32 Chronic diastolic (congestive) heart failure
CPT/HCPCS: 29581; 99213

== ENCOUNTER → 2018-12-06 11:32 | Outpatient (CLI) | payer MEDICARE, MEDICAID, SELFPAY ==
[2018-02-16 03:12] VITALS: BMI 30.1
== END ==
PROVIDERS: PCP Family Medicine; Visit Provider Family Medicine
DX: I87.313 Chronic venous hypertension (idiopathic) with ulcer of bilateral lower extremity (principal); L97.812 Non-pressure chronic ulcer of other part of right lower leg with fat layer exposed; L97.822 Non-pressure chronic ulcer of other part of left lower leg with fat layer exposed; I50.32 Chronic diastolic (congestive) heart failure
CPT/HCPCS: 29581; 99213

== ENCOUNTER → 2018-12-09 14:14 | Outpatient (CLI) | payer MEDICARE, MEDICAID, SELFPAY ==
[2018-02-16 03:12] VITALS: BMI 30.1
== END ==
PROVIDERS: PCP Family Medicine; Visit Provider Family Medicine
DX: I83.10 Varicose veins of unspecified lower extremity with inflammation (principal); R60.0 Localized edema
CPT/HCPCS: 99213

== ENCOUNTER → 2018-12-09 15:21 | Outpatient (CLI) | payer MEDICARE, MEDICAID, SELFPAY ==
[2018-02-16 03:12] VITALS: BMI 30.1
[2018-12-09 16:51] LABS: Alanine Aminotransferase 37 IU/L (21-72); Albumin 3.8 g/dL (3.5-5.0); Albumin Globulin Ratio 1.4 (1.0-2.8); Alkaline Phosphatase 82 U/L (38-126); Aspartate Aminotransferase 35 IU/L (17-59); BUN Creatinine Ratio 13.3 (6-22); Bilirubin Total 0.5 mg/dL (0.2-1.3); Blood Urea Nitrogen 12 mg/dL (9-20); Calcium 9.5 mg/dL (8.4-10.2); Carbon Dioxide 27 mmol/L (22-32); Chloride 99 mmol/L (98-107); Estimated Glomerular Filt Rate > 60.0 mL/min (>60); Globulin 2.7 g/dL (1.7-4.1); Glucose 97 mg/dL (80-110); HEMOLYSIS < 15 (0-50); Potassium 3.5 mmol/L (3.4-5.1); Sodium 137 mmol/L (137-145); Total Protein 6.5 g/dL (6.3-8.2)
== END ==
PROVIDERS: PCP Family Medicine; Visit Provider Family Medicine
DX: I50.32 Chronic diastolic (congestive) heart failure (principal)
CPT/HCPCS: 36415; 80053

== ENCOUNTER → 2018-12-13 13:06 | Outpatient (CLI) | payer MEDICARE, MEDICAID, SELFPAY ==
[2018-02-16 03:12] VITALS: BMI 30.1
== END ==
PROVIDERS: PCP Family Medicine; Visit Provider Family Medicine
DX: I50.32 Chronic diastolic (congestive) heart failure (principal); I83.10 Varicose veins of unspecified lower extremity with inflammation; R60.0 Localized edema; R63.5 Abnormal weight gain
CPT/HCPCS: 99213; 99214

== ENCOUNTER → 2018-12-20 13:10 | Outpatient (CLI) | payer MEDICARE, MEDICAID, SELFPAY ==
[2018-02-16 03:12] VITALS: BMI 30.1
== END ==
PROVIDERS: PCP Family Medicine; Visit Provider Family Medicine
DX: I87.313 Chronic venous hypertension (idiopathic) with ulcer of bilateral lower extremity (principal); L97.812 Non-pressure chronic ulcer of other part of right lower leg with fat layer exposed; L97.822 Non-pressure chronic ulcer of other part of left lower leg with fat layer exposed; I50.32 Chronic diastolic (congestive) heart failure
CPT/HCPCS: 87070; 87075; 87077; 87147; 87186; 87205; 99213; 99214

== ENCOUNTER → 2018-12-27 13:15 | Outpatient (CLI) | payer MEDICARE, MEDICAID, SELFPAY ==
[2018-02-16 03:12] VITALS: BMI 30.1
== END ==
PROVIDERS: PCP Family Medicine; Visit Provider Family Medicine
DX: I87.313 Chronic venous hypertension (idiopathic) with ulcer of bilateral lower extremity (principal); L97.812 Non-pressure chronic ulcer of other part of right lower leg with fat layer exposed; L97.822 Non-pressure chronic ulcer of other part of left lower leg with fat layer exposed; I50.32 Chronic diastolic (congestive) heart failure; L08.9 Local infection of the skin and subcutaneous tissue, unspecified
CPT/HCPCS: 99212; 99214

== ENCOUNTER → 2019-01-03 13:38 | Outpatient (CLI) | payer MEDICARE, MEDICAID, SELFPAY ==
[2018-02-16 03:12] VITALS: BMI 30.1
== END ==
PROVIDERS: PCP Family Medicine; Visit Provider Family Medicine
DX: I87.333 Chronic venous hypertension (idiopathic) with ulcer and inflammation of bilateral lower extremity (principal); L97.812 Non-pressure chronic ulcer of other part of right lower leg with fat layer exposed; L97.822 Non-pressure chronic ulcer of other part of left lower leg with fat layer exposed; I50.32 Chronic diastolic (congestive) heart failure
CPT/HCPCS: 97597

== ENCOUNTER → 2019-01-03 14:13 | Outpatient (CLI) | payer MEDICARE, MEDICAID, SELFPAY ==
[2018-02-16 03:12] VITALS: BMI 30.1
[2019-01-03 15:40] LABS: BUN Creatinine Ratio 19.1 (6-22); Blood Urea Nitrogen 21 mg/dL (9-20); Carbon Dioxide 37 mmol/L (22-32); Chloride 86 mmol/L (98-107); Estimated Glomerular Filt Rate > 60.0 mL/min (>60); Glucose 102 mg/dL (80-110); HEMOLYSIS < 15 (0-50); Potassium 3.7 mmol/L (3.4-5.1); Sodium 134 mmol/L (137-145)
== END ==
PROVIDERS: PCP Family Medicine; Visit Provider Family Medicine
DX: Z79.899 Other long term (current) drug therapy (principal)
CPT/HCPCS: 36415; 80048

== ENCOUNTER → 2019-01-10 10:24 | Outpatient (CLI) | payer MEDICARE, MEDICAID, SELFPAY ==
[2018-02-16 03:12] VITALS: BMI 30.1
== END ==
PROVIDERS: PCP Family Medicine; Visit Provider Family Medicine
DX: I87.312 Chronic venous hypertension (idiopathic) with ulcer of left lower extremity (principal); L97.822 Non-pressure chronic ulcer of other part of left lower leg with fat layer exposed
CPT/HCPCS: 87070; 87075; 87077; 87186; 87205; 97597; 99213

== ENCOUNTER → 2019-01-18 14:30 | Outpatient (CLI) | payer MEDICARE, MEDICAID, SELFPAY ==
[2018-02-16 03:12] VITALS: BMI 30.1
== END ==
PROVIDERS: PCP Family Medicine; Visit Provider Family Medicine
DX: I87.332 Chronic venous hypertension (idiopathic) with ulcer and inflammation of left lower extremity (principal); Z48.817 Encounter for surgical aftercare following surgery on the skin and subcutaneous tissue; M79.605 Pain in left leg
CPT/HCPCS: 99213

== ENCOUNTER → 2019-06-06 13:12 | Outpatient (CLI) | payer MEDICARE, MEDICAID, SELFPAY ==
[2018-02-16 03:12] VITALS: BMI 30.1
[2019-06-06 15:20] LABS: Thyroid Stimulating Hormone 4.98 uIU/mL (0.47-4.68)
== END ==
PROVIDERS: PCP Family Medicine; Visit Provider Family Medicine
DX: E03.9 Hypothyroidism, unspecified (principal)
CPT/HCPCS: 36415; 84443

== ENCOUNTER 2021-03-02 07:12 | Observation (INO) | payer OTHER, SELFPAY ==
[2018-02-16 03:12] VITALS: BMI 30.1
[2021-03-02] VITALS (65 sets, daily range): BP systolic 117–156; BP diastolic 57–85; PULSE 58–100; RESP 11–32; TEMP 36–36.8; O2SAT 90–100; BMI 33.8
--- NOTE | 2021-03-02 07:22 | ED_ITS ---
HPI - Dizziness General Chief Complaint: Dizziness Stated Complaint: Dizziness last night, hx of ear problems Time Seen by Provider: 03/02/21 07:22 Source: patient and EMS Mode of arrival: EMS Limitations: no limitations History of Present Illness HPI Narrative: Patient is a 75-year-old male who has history of congestive heart failure, hypertension presents with dizziness nausea and vomiting. He says this has happened to him in the past with the inner ear issue. He says this started last evening he is not sure when but he says he gets dizzy every time he moves. He was dry heaving. He denies any chest pain or palpitations. He has not fallen. He has some mild discomfort in his abdomen. As long as he remains still the dizziness is better. He has no numbness tingling or weakness. MD complaint: dizziness Timing: gradual onset Description: room spinning History of similar episodes: Yes History of trauma: No Severity: mild Relieving factors: remaining still Exacerbating factors: movement Related Data Home Medications Medication Instructions Recorded Confirmed hydrochlorothiazide 12.5 mg PO BID #0 01/09/13 03/02/21 potassium chloride 20 meq PO BID #0 01/09/13 03/02/21 pravastatin [Pravachol] 60 mg PO DAILY #0 01/09/13 03/02/21 furosemide 40 mg PO BID 02/15/18 03/02/21 levothyroxine 150 mcg PO DAILY 02/15/18 03/02/21 pantoprazole [Protonix] 40 mg PO DAILY 02/15/18 03/02/21 tamsulosin 2 cap PO QHS 02/15/18 03/02/21 Allergies Allergy/AdvReac Type Severity Reaction Status Date / Time Penicillins [PENICILLINS] AdvReac Severe IT PIERCE Verified 02/16/18 00:58 LIKE MAD NOTHING DIGESTS Review of Systems Review of Systems ROS Unobtainable: All systems reviewed & are unremarkable except as noted in HPI and below Constitutional Constitutional: Denies chills, Denies fever(s), Denies frequent falls, Denies lethargy and Denies weakness ENT Ears, Nose, Mouth, and Throat: Denies change in voice, Denies neck pain and Denies sore throat Cardiovascular Cardiovascular: Denies chest pain, Denies irregular heart rhythm, Denies lightheadedness, Denies palpitations, Denies dyspnea, Denies dyspnea on exertion and Denies orthopnea Respiratory Respiratory: Denies cough, Denies dyspnea, Denies dyspnea on exertion and Denies wheezing Gastrointestinal Gastrointestinal: Denies abdominal pain, Denies change in bowel habits, Denies diarrhea, Denies nausea and Denies vomiting Musculoskeletal Musculoskeletal: Denies back pain and Denies neck pain Integumentary/Breasts Skin/Breast: Denies pruritus, Denies erythema, Denies rash and Denies wounds Neurologic Neurologic: Denies frequent falls and Denies weakness Endocrine Endocrine: Denies palpitations Allergic/Immunologic Allergic/Immunologic: Denies wheezing Patient History Medical History (Updated 03/02/21 @ 15:57 by Aime Hung MD) Alcohol abuse Congestive heart failure Depression Esophageal ulceration Essential hypertension GERD (gastroesophageal reflux disease) Hypothyroidism Mixed hyperlipidemia Venous stasis Surgical History Status post appendectomy Social History household members: spouse and children Smoking Status: Never smoker alcohol intake: never Smoking Status: Never smoker alcohol intake frequency: 0-2 drinks per day Substance Use Type: does not use Exam Initial Vital Signs Initial Vital Signs: Vital Signs Temperature 97.7 F 03/02/21 07:25 Pulse Rate 82 03/02/21 07:25 Respiratory Rate 18 03/02/21 07:25 Blood Pressure 156/79 H 03/02/21 07:25 Pulse Oximetry 100 03/02/21 07:25 GENERAL: Alert very hard of hearing 75-year-old male and in no acute distress. HEENT: Head atraumatic,EOMI, no nystagmus, pupils reactive, face symmetric, moist mucous membranes EARS: Normal external ears tympanic membranes visualized bilaterally with no erythema no canal discharge or swelling CARDIOVASCULAR: Regular rate and rhythm without murmurs, rubs or gallops. RESPIRATORY: Breath sounds equal bilaterally, no wheezes rales or rhonchi. ABDOMEN: Soft, nontender. Normoactive bowel sounds all 4 quadrants. No guarding or rebound. EXTREMITIES: Normal range of motion, no clubbing or edema. Neurovascularly intact NEUROLOGICAL: Alert and oriented x4.Normal gait and speech. Cranial nerves II through XII grossly intact. Good [id number], no dysarthria or aphasia, sensation in tact to soft touch bilaterally, no visual changes, no facial droop SKIN: Warm, dry, no laceration, no petechiae, no rashes or lesions. Lower extremities have dressings on he says they are compression devices skin underneath appears well Scores NIH Stroke Scale Level of Conciousness: Alert, keenly responsive Ask month/age: Answers both questions correctly. Open/close eyes, close hand: Performs both tasks correctly Best gaze horizontal: Normal Visual bruno: No visual loss Facial palsy: Normal symetrical movement Left arm drift: No drift for full 10 sec Right arm drift: No drift for full 10 sec Left leg drift: No drift for full 5 sec Right leg drift: No drift for full 5 sec Limb ataxia: Absent Sensory on face/arms/legs: Normal, no sensory loss Best language: No aphasia, normal Dysarthria: Normal Extinction or inattention: No abnormality Total NIH Stroke scale score: 0 Course Orders Ordered: ED Orders 03/02/21 10:21 CT abdomen pelvis w con Stat Acetaminophen (Acetaminophen 325 Mg Tablet) 650 mg PO Q6HR PRN PRN Reason: Fever/Mild Pain (1-3) Amlodipine Besylate (Amlodipine 5 Mg Tablet) 10 mg PO DAILY [facility] Diazepam (Diazepam 10 Mg/2 Ml Syringe) 2 mg IV Q4HR PRN PRN Reason: Vertigo Enoxaparin Sodium (Enoxaparin 40 Mg/0.4 Ml Syringe) 40 mg SUBCUT DAILY [facility] Fluticasone Propionate (Fluticasone 120 Calvin/16 Gm Calvin.Susp) 2 spray NASAL BEDTIME [facility]ARIST[facility] Dextrose/Sodium Chloride (Dextrose 5%-0.45% Ns) 1,000 mls @ 100 mls/hr IV CONT EVARISTO Last Admin: 03/02/21 16:15 Dose: 100 mls/hr Documented by: FELIXT POTASSIUM CHLORIDE IN WATER (Potassium Cl 10 Meq/100 Ml Suly) 10 meq in 100 mls @ 100 mls/hr IV Q1H [facility]ARISTO Stop: 03/02/21 21:59 Last Admin: 03/02/21 16:20 Dose: 100 mls/hr Documented by: FELIXT Levothyroxine Sodium (Levothyroxine 75 Mcg Tablet) 75 mcg PO DAILY@0600 [facility] Lisinopril (Lisinopril 20 Mg Tablet) 40 mg PO BID [facility] Meclizine HCl (Meclizine Hcl 12.5 Mg Tablet) 25 mg PO Q6HR PRN PRN Reason: Vertigo Naloxone HCl (Naloxone 0.4 Mg/Ml Vial) 0.2 mg IV Q2MIN PRN PRN Reason: Opiate Reversal Nortriptyline HCl (Nortriptyline 10 Mg Capsule) 20 mg PO BEDTIME [facility]IST[facility] Ondansetron HCl (Ondansetron 4 Mg/2 Ml Inj) 4 mg IV Q4HR PRN PRN Reason: Nausea And Vomiting Pantoprazole Sodium (Pantoprazole Dr 40 Mg Tablet) 40 mg PO DAILY [facility] Pravastatin Sodium (Pravastatin 20 Mg Tablet) 40 mg PO BEDTIME [facility] Tamsulosin HCl (Tamsulosin 0.4 Mg Capsule) 0.8 mg PO BEDTIME [facility]IST[facility] Discontinued Medications Sodium Chloride (Normal Saline 0.9%) 1,000 mls @ 150 mls/hr IV CONT EVARISTO Last Infusion: 03/02/21 15:06 Dose: 0 mls/hr Documented by: Admin: 03/02/21 07:46 Dose: 150 mls/hr Documented by: LUCY Meclizine HCl (Meclizine Hcl 12.5 Mg Tablet) 25 mg PO NOW ONE Stop: 03/02/21 07:24 Last Admin: 03/02/21 07:46 Dose: 25 mg Documented by: LUCY Metoclopramide HCl (Metoclopramide 10 Mg/2 Ml Inj) 10 mg IV NOW ONE Stop: 03/02/21 10:24 Last Admin: 03/02/21 10:38 Dose: 10 mg Documented by: LUCY Midazolam HCl (Midazolam 2 Mg/2 Ml Vial) 2 mg IV NOW ONE Stop: 03/02/21 10:22 Last Admin: 03/02/21 10:39 Dose: 2 mg Documented by: LUCY Ondansetron HCl (Ondansetron 4 Mg/2 Ml Inj) 4 mg IV NOW ONE Stop: 03/02/21 07:24 Last Admin: 03/02/21 07:46 Dose: 4 mg Documented by: LUCY Ondansetron HCl (Ondansetron 4 Mg/2 Ml Inj) 4 mg IV NOW ONE Stop: 03/02/21 08:38 Last Admin: 03/02/21 08:45 Dose: 4 mg Documented by: ORIN Pantoprazole Sodium (Pantoprazole 40 Mg Vial) 40 mg IV NOW ONE Stop: 03/02/21 10:24 Last Admin: 03/02/21 10:42 Dose: 40 mg Documented by: LUCY Potassium Chloride (Potassium Chloride 20 Meq Tab) 40 meq PO NOW ONE Stop: 03/02/21 10:19 Last Admin: 03/02/21 14:20 Dose: 40 meq Documented by: JSHAFF Vital Signs Vital signs: Vital Signs - 8 hr 03/02/21 10:21 03/02/21 10:22 03/02/21 10:23 Temperature Pulse Rate 78 92 H 100 H Respiratory Rate 26 H 30 H Blood Pressure Pulse Oximetry 03/02/21 10:24 03/02/21 10:25 03/02/21 10:26 Temperature Pulse Rate 98 H 96 H 91 H Respiratory Rate 21 20 22 Blood Pressure Pulse Oximetry 03/02/21 10:27 03/02/21 10:28 03/02/21 10:29 Temperature Pulse Rate 91 H 89 86 Respiratory Rate 24 20 13 Blood Pressure Pulse Oximetry 03/02/21 10:30 03/02/21 10:31 03/02/21 10:32 Temperature Pulse Rate 85 86 87 Respiratory Rate 21 22 21 Blood Pressure Pulse Oximetry 03/02/21 10:33 03/02/21 10:34 03/02/21 10:35 Temperature Pulse Rate 90 88 87 Respiratory Rate 19 28 H 20 Blood Pressure Pulse Oximetry 03/02/21 10:36 03/02/21 10:37 03/02/21 10:38 Temperature Pulse Rate 88 93 H 92 H Respiratory Rate 28 H 31 H 32 H Blood Pressure Pulse Oximetry 03/02/21 10:39 03/02/21 10:40 03/02/21 10:41 Temperature Pulse Rate 91 H 90 91 H Respiratory Rate 29 H 17 25 H Blood Pressure Pulse Oximetry 03/02/21 10:42 03/02/21 10:43 03/02/21 10:44 Temperature Pulse Rate 87 91 H 91 H Respiratory Rate 22 22 26 H Blood Pressure 136/71 Pulse Oximetry 97 93 03/02/21 10:45 03/02/21 10:46 03/02/21 10:47 Temperature Pulse Rate 89 89 92 H Respiratory Rate 20 20 20 Blood Pressure 142/68 H Pulse Oximetry 91 90 L 91 03/02/21 10:48 03/02/21 11:00 03/02/21 11:30 Temperature Pulse Rate 87 83 83 Respiratory Rate 19 17 17 Blood Pressure 146/68 H 141/72 H 132/66 Pulse Oximetry 93 95 94 03/02/21 12:00 03/02/21 12:04 03/02/21 12:30 Temperature Pulse Rate 83 81 83 Respiratory Rate 18 18 19 Blood Pressure 121/66 121/66 133/75 Pulse Oximetry 96 99 98 03/02/21 13:00 03/02/21 13:30 03/02/21 13:31 Temperature Pulse Rate 90 81 82 Respiratory Rate 21 17 11 L Blood Pressure 154/72 H 142/69 H Pulse Oximetry 95 98 99 03/02/21 14:00 03/02/21 14:11 03/02/21 14:38 Temperature 98.2 F Pulse Rate 81 85 58 L Respiratory Rate 16 Blood Pressure 134/64 134/64 Pulse Oximetry 99 95 03/02/21 14:39 Temperature Pulse Rate 78 Respiratory Rate 29 H Blood Pressure 148/70 H Pulse Oximetry 98 MDM - Dizziness Lab Data Attestation: I reviewed the patient's lab results. Result diagrams: 03/02/21 07:30 03/02/21 07:30 Labs: Lab Results 03/02/21 03/02/21 Range/Units 07:30 07:30 WBC 8.3 (4.5-11.0) X10^3/uL RBC 5.13 (4.5-5.9) X10^6/uL Hgb 16.2 (13.5-17.5) g/dL Hct 47.9 (41-53) % MCV 93.4 (80-100) fL MCH 31.6 (26-34) PG MCHC 33.9 (30-36) % RDW 13.6 (11.6-14.8) % Plt Count 173 (150-400) X10^3/uL Neut % (Auto) 85.2 H (50-75) % Lymph % (Auto) 9.3 L (25-40) % Christian % (Auto) 4.8 (3-14) % Eos % (Auto) 0.5 L (2-4) % Baso % (Auto) 0.2 (0-2) % Neut # (Auto) 7100 H (6230-8974) /uL Lymph # (Auto) 800 L (2402-7485) /uL Christian # (Auto) 400 (0-900) /uL Eos # (Auto) 0 (0-450) /uL Baso # (Auto) 0 (0-100) /uL Sodium 133 L (137-145) mmol/L Potassium 2.9 L (3.4-5.1) mmol/L Chloride 95 L (98-107) mmol/L Carbon Dioxide 29 (22-32) mmol/L BUN 11 (9-20) mg/dL Creatinine 0.91 (0.66-1.25) mg/dL Estimated GFR > 60.0 (>60) mL/min BUN/Creatinine Ratio 12.1 (6-22) Glucose 152 H (80-110) mg/dL Calcium 9.9 (8.4-10.2) mg/dL Total Bilirubin 0.8 (0.2-1.3) mg/dL AST 41 (17-59) IU/L ALT 32 (<50) IU/L Alkaline Phosphatase 88 (38-126) U/L Total Creatine Kinase 57 (55-170) U/L CK-MB (CK-2) TNP CK-MB (CK-2) Rel Index TNP Troponin I < 0.012 (0.01-0.034) ng/mL Total Protein 6.9 (6.3-8.2) g/dL Albumin 4.2 (3.5-5.0) g/dL Globulin 2.7 (1.7-4.1) g/dL Albumin/Globulin Ratio 1.6 (1.0-2.8) Imaging Data CT scan - head: Radiologist's Impression: PROCEDURE: CT HEAD/BRAIN WO CON INDICATIONS: dizzy TECHNIQUE: Noncontrast 4.5 mm thick angled axial sections acquired from the foramen magnum to the vertex, with coronal and sagittal reformats. For radiation dose reduction, the following was used: automated exposure control, adjustment of mA and/or kV according to patient size. COMPARISON: [facility], CT, CT HEAD/BRAIN WO CON, 02/15/2018, 19:39. FINDINGS: Image quality: Excellent. CSF spaces: Basal cisterns are patent. No extra-axial fluid collections. The ventricles are symmetric in size and shape. Brain: No intracranial bleeds or masses. There is cerebral volume loss for age, with resultant ventricular and sulcal prominence. There are periventricular and deep white matter chronic small vessel ischemic changes. 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 This includes bilateral thalamic, basal ganglia, and left head of caudate. There is intracranial internal carotid artery atherosclerosis. Dense bilateral cavernous carotid and distal vertebral artery calcifications. Skull and face: Calvarium and visualized facial bones appear intact, without suspicious lesions. Sinuses: Visualized sinuses and mastoids are clear. IMPRESSION: 1. Age-related volume loss, small vessel ischemic change, bilateral old lacunar infarctions. 2. No evidence acute stroke, hemorrhage, or mass. 3. Dense bilateral vertebral artery and carotid artery calcifications. Dictated by: Antonio Wyatt M.D. on 03/02/2021 at 8:06 CT scan - abdomen/pelvis: Radiologist's Impression: PROCEDURE: CT ABDOMEN PELVIS W CON INDICATIONS: Persistent nausea vomiting TECHNIQUE: After the administration of intravenous contrast, 5 mm thick sections acquired from the diaphragm to the symphysis. 5 mm coronal and sagittal reformats were acquired. For radiation dose reduction, the following was used: automated exposure control, adjustment of mA and/or kV according to patient size. COMPARISON: None. FINDINGS: Image quality: Excellent. ABDOMEN: Lung bases: Lung bases are clear. Heart size is normal. Solid organs: Liver is normal in size and enhancement. Gallbladder appears normal. Biliary system is non dilated. Pancreas enhances normally. Spleen is normal in size and enhancement. No adrenal nodules. Kidneys demonstrate normal size and enhancement, without hydronephrosis. Peritoneum and bowel: Bowel loops demonstrate normal wall thickness and caliber but there is right-sided colonic obstipation. No free fluid or air. Nodes and vessels: No retroperitoneal or mesenteric adenopathy by size criteria. Aorta and inferior vena cava are normal in size. Miscellaneous: No ventral hernias. PELVIS: Genitourinary: Bladder wall thickness is normal. Miscellaneous: No inguinal hernias or adenopathy. Right-sided and rectal colonic obstipation. Bones: No suspicious bony lesions. No vertebral body compression fractures. IMPRESSION: No acute disease. There is colonic obstipation in involving predominantly the right colon and the rectum areas. No sign of colitis or diverticulitis. No sign of bowel obstruction. Source of enteritis symptoms is not found. Dictated by: Luc Lemus M.D. on 03/02/2021 at 10:59 ECG Data Attestation: I personally reviewed and interpreted this ECG as follows: Interpretation: Sinus rhythm rate 81 p.r. interval 204 QRS [address] changes T-wave inversions a PVC noted similar to previous EKGs MDM Narrative Medical decision making narrative: 10 15 patient still nauseated dry heaving and dizzy. Potassium found to be 2.9 will replace. He complaining of abdominal pain as well. Still does not feel well. Abdomen has no specific location of pain but he is dry heaving unable to keep fluids down. CT abdomen does not show any abnormality. Patient is still quite dizzy with movement despite meclizine and Zofran. Patient's symptoms are similar to prior episodes of what sound like vertigo and symptoms are consistent with vertigo this time. He is given a dose of Versed for which he slept for number of hours. Of able to wake him is in reassess. As he sat up and started moving around he vomited his potassium and f kapil his ambulation trial. At this time patient is an unsafe discharge. Unable to do CT angio at this time patient just had abdominal CT, would likely need MRI. At this time it is possible patient has a posterior stroke however the patient's signs and symptoms are more consistent with vertigo and he has a history of such. Dr. Hung updated patient's symptoms test results inability to discharged safely home happily accepts. Discharge Plan Departure Patient Disposition: Admitted as Observation Clinical Impression: Vertigo Admit Date/Time: 03/02/21 14:58 Admit Provider: Aime Hung
[2021-03-02 07:36] LABS: Add Manual Diff / Slide Review NO; Basophils Absolute Auto 0 /uL (0-100); Basophils Percent Auto 0.2 % (0-2); Eosinophils Absolute Auto 0 /uL (0-450); Eosinophils Percent Auto 0.5 % (2-4); Hematocrit 47.9 % (41-53); Hemoglobin 16.2 g/dL (13.5-17.5); Lymphocytes Absolute Auto 800 /uL (1100-4500); Lymphocytes Percent Auto 9.3 % (25-40); Mean Corpuscular HGB Conc 33.9 % (30-36); Mean Corpuscular Hemoglobin 31.6 PG (26-34); Mean Corpuscular Volume 93.4 fL (80-100); Monocytes Absolute Auto 400 /uL (0-900); Monocytes Percent Auto 4.8 % (3-14); Neutrophils Absolute Auto 7100 /uL (1500-7000); Neutrophils Percent Auto 85.2 % (50-75); Platelet Count 173 X10^3/uL (150-400); Red Blood Cell Count 5.13 X10^6/uL (4.5-5.9); Red Cell Distribution Width 13.6 % (11.6-14.8); White Blood Cell Count 8.3 X10^3/uL (4.5-11.0)
[2021-03-02] MEDS: MECLIZINE HCL 12.5 MG TABLET 25 MG PO (07:46)
[2021-03-02] MEDS: SODIUM CHLORIDE 0.9% 1,000 ML 150 ML IV (07:46)
[2021-03-02] MEDS: ONDANSETRON 4 MG/2 ML INJ IV ×2 (07:46→08:45)
[2021-03-02 08:14] LABS: Alanine Aminotransferase 32 IU/L (<50); Albumin 4.2 g/dL (3.5-5.0); Albumin Globulin Ratio 1.6 (1.0-2.8); Alkaline Phosphatase 88 U/L (38-126); Aspartate Aminotransferase 41 IU/L (17-59); BUN Creatinine Ratio 12.1 (6-22); Bilirubin Total 0.8 mg/dL (0.2-1.3); Blood Urea Nitrogen 11 mg/dL (9-20); Calcium 9.9 mg/dL (8.4-10.2); Carbon Dioxide 29 mmol/L (22-32); Chloride 95 mmol/L (98-107); Creatine Kinase 57 U/L (55-170); Estimated Glomerular Filt Rate > 60.0 mL/min (>60); Globulin 2.7 g/dL (1.7-4.1); Glucose 152 mg/dL (80-110); HEMOLYSIS 39 (0-50); Potassium 2.9 mmol/L (3.4-5.1); Sodium 133 mmol/L (137-145); Total Protein 6.9 g/dL (6.3-8.2)
[2021-03-02 08:25] LABS: Troponin I < 0.012 ng/mL (0.01-0.034)
--- NOTE | 2021-03-02 09:11 | PC.NURSE ---
Patient is sitting at the edge of the bed. He stated that he felt dizzy and nauseous.
--- NOTE | 2021-03-02 10:21 | DI.CT.S_ITS ---
PROCEDURE: CT ABDOMEN PELVIS W CON INDICATIONS: Persistent nausea vomiting TECHNIQUE: After the administration of intravenous contrast, 5 mm thick sections acquired from the diaphragm to the symphysis. 5 mm coronal and sagittal reformats were acquired. For radiation dose reduction, the following was used: automated exposure control, adjustment of mA and/or kV according to patient size. COMPARISON: None. FINDINGS: Image quality: Excellent. ABDOMEN: Lung bases: Lung bases are clear. Heart size is normal. Solid organs: Liver is normal in size and enhancement. Gallbladder appears normal. Biliary system is non dilated. Pancreas enhances normally. Spleen is normal in size and enhancement. No adrenal nodules. Kidneys demonstrate normal size and enhancement, without hydronephrosis. Peritoneum and bowel: Bowel loops demonstrate normal wall thickness and caliber but there is right-sided colonic obstipation. No free fluid or air. Nodes and vessels: No retroperitoneal or mesenteric adenopathy by size criteria. Aorta and inferior vena cava are normal in size. Miscellaneous: No ventral hernias. PELVIS: Genitourinary: Bladder wall thickness is normal. Miscellaneous: No inguinal hernias or adenopathy. Right-sided and rectal colonic obstipation. Bones: No suspicious bony lesions. No vertebral body compression fractures. IMPRESSION: No acute disease. There is colonic obstipation in involving predominantly the right colon and the rectum areas. No sign of colitis or diverticulitis. No sign of bowel obstruction. Source of enteritis symptoms is not found. Dictated by: Luc Lemus M.D. on 03/02/2021 at 10:59 Approved by: Luc Lemus M.D. on 03/02/2021 at 11:00
[2021-03-02] MEDS: METOCLOPRAMIDE 10 MG/2 ML INJ IV (10:38)
[2021-03-02] MEDS: MIDAZOLAM 2 MG/2 ML VIAL IV (10:39)
[2021-03-02] MEDS: PANTOPRAZOLE 40 MG VIAL IV (10:42)
--- NOTE | 2021-03-02 12:05 | PC.NURSE ---
pt has been drowsy after versed. potassium not given yet. Dr. Khoury aware.
[2021-03-02] MEDS: POTASSIUM CHLORIDE 20 MEQ TAB 40 MEQ PO (14:20)
--- NOTE | 2021-03-02 15:40 | PM.HP.1 ---
History of Present Illness History of Present Illness Date Patient Seen: 03/02/21 Time Patient Seen: 15:40 Chief complaint: Dizziness last night, hx of ear problems Narrative: 75-year-old male who normally sees Dr. Zackary Hoover at [facility], who presented to the [facility] Emergency Department on date of admission with severe dizziness. He says the dizziness is producing nausea and vomiting. This is happen him in the past when he has had inner ear problems. Began sometime within the 24 hours prior to presentation. If he remains till he has pretty good but every time he moves at all he gets severe movement sense associated with some nausea and vomiting to the point where he has had dry heaving. Has had no numbness tingling hands feet arms legs. Has some mild discomfort in his abdomen. No difficulty vision speech swallowing ER evaluation was essentially unremarkable. Noncontrast enhanced head CT unremarkable. Labs essentially unremarkable, except for mild hypokalemia. Was given some Versed to assist with his evaluation which cause significant sedation but upon awakening patient had return of symptoms. Patient History Medical History (Updated 03/02/21 @ 15:57 by Aime Hung MD) Alcohol abuse Congestive heart failure Depression Esophageal ulceration Essential hypertension GERD (gastroesophageal reflux disease) Hypothyroidism Mixed hyperlipidemia Venous stasis Surgical History Status post appendectomy Family & Social History Social History: household members spouse,children Safety & Behavioral: Feels Safe in Current Yes Environment Been Physically Hurt or No Threatened By a Person Tobacco & Substance use: Smoking Status Never smoker alcohol intake never alcohol intake frequency 0-2 drinks per day Substance Use Type does not use Meds Home Medications and Allergies Home Medications Medication Instructions Recorded Confirmed Type hydrochlorothiazide 12.5 mg PO BID #0 01/09/13 03/02/21 History potassium chloride 20 meq PO BID #0 01/09/13 03/02/21 History pravastatin [Pravachol] 60 mg PO DAILY #0 01/09/13 03/02/21 History furosemide 40 mg PO BID 02/15/18 03/02/21 History levothyroxine 150 mcg PO DAILY 02/15/18 03/02/21 History pantoprazole [Protonix] 40 mg PO DAILY 02/15/18 03/02/21 History tamsulosin 2 cap PO QHS 02/15/18 03/02/21 History Allergies Allergy/AdvReac Type Severity Reaction Status Date / Time Penicillins [PENICILLINS] AdvReac Severe IT PIERCE Verified 02/16/18 00:58 LIKE MAD NOTHING DIGESTS Review of Systems Constitutional Constitutional: Denies excessive sweating, Denies fever(s), Denies headache(s), Denies weakness, Denies weight gain and Denies weight loss Eyes Eyes: Denies change in vision, Denies itchy eyes, Denies loss of vision and Denies other visual disturbances ENT Ears, Nose, Mouth, and Throat: No change in voice, No dysphagia, No dizziness, No otalgia, No headache(s), No hoarseness, No lip swelling, No neck pain, No sore throat, No throat swelling and No tongue swelling Cardiovascular Cardiovascular: Denies chest pain, Denies syncope, Denies rapid heart rate, Denies irregular heart rhythm, Denies palpitations, Denies dyspnea, Denies dyspnea on exertion and Denies slow heart rate Respiratory Respiratory: Denies chest congestion, Denies cough, Denies hemoptysis, Denies dyspnea, Denies dyspnea on exertion, Denies stridor and Denies wheezing Gastrointestinal Gastrointestinal: Denies dysphagia Genitourinary Genitourinary: Denies hematuria, Denies difficulty urinating and Denies urinary frequency Musculoskeletal Musculoskeletal: Denies abnormal gait, Denies myalgias, Denies arthralgias, Denies limited range of motion and Denies neck pain Integumentary/Breasts Skin/Breast: Denies bleeding lesions, Denies change in pigmentation, Denies changing lesions, Denies new lesions, Denies rash, Denies skin swelling, Denies sores and Denies jaundice Neurologic Neurologic: Denies abnormal gait, Denies behavioral changes, Denies confusion, Denies dizziness, Denies syncope, Denies headache(s), Denies loss of vision, Denies memory loss and Denies weakness Psychiatric Psychiatric: Denies behavioral changes, Denies change in appetite, Denies confusion, Denies difficulty concentrating, Denies auditory hallucinations, Denies memory loss, Denies mood swings and Denies suicidal ideation Endocrine Endocrine: Denies excessive sweating, Denies flushing, Denies polyuria and Denies palpitations Hematologic/Lymphatic Hematologic/Lymphatic: Denies easy bleeding, Denies easy bruising and Denies lymphadenopathy Allergic/Immunologic Allergic/Immunologic: Denies urticaria, Denies itchy eyes, Denies lip swelling, Denies throat swelling, Denies tongue swelling and Denies wheezing Exam Vital Signs (past 8 hours): - 03/02/21 10:00 03/02/21 10:01 03/02/21 10:02 Temperature Pulse Rate 87 87 87 Respiratory Rate 23 24 20 Blood Pressure Pulse Oximetry 03/02/21 10:03 03/02/21 10:04 03/02/21 10:05 Temperature Pulse Rate 87 91 H 89 Respiratory Rate 26 H 22 23 Blood Pressure Pulse Oximetry 03/02/21 10:06 03/02/21 10:07 03/02/21 10:08 Temperature Pulse Rate 89 86 86 Respiratory Rate 23 26 H 24 Blood Pressure Pulse Oximetry 03/02/21 10:09 03/02/21 10:10 03/02/21 10:11 Temperature Pulse Rate 87 88 88 Respiratory Rate 24 27 H 25 H Blood Pressure Pulse Oximetry 03/02/21 10:12 03/02/21 10:13 03/02/21 10:14 Temperature Pulse Rate 94 H 92 H 86 Respiratory Rate 23 25 H 20 Blood Pressure Pulse Oximetry 03/02/21 10:15 03/02/21 10:16 03/02/21 10:17 Temperature Pulse Rate 86 86 86 Respiratory Rate 17 20 24 Blood Pressure Pulse Oximetry 03/02/21 10:18 03/02/21 10:19 03/02/21 10:20 Temperature Pulse Rate 85 84 84 Respiratory Rate 22 25 H 24 Blood Pressure Pulse Oximetry 03/02/21 10:21 03/02/21 10:22 03/02/21 10:23 Temperature Pulse Rate 78 92 H 100 H Respiratory Rate 26 H 30 H Blood Pressure Pulse Oximetry 03/02/21 10:24 03/02/21 10:25 03/02/21 10:26 Temperature Pulse Rate 98 H 96 H 91 H Respiratory Rate 21 20 22 Blood Pressure Pulse Oximetry 03/02/21 10:27 03/02/21 10:28 03/02/21 10:29 Temperature Pulse Rate 91 H 89 86 Respiratory Rate 24 20 13 Blood Pressure Pulse Oximetry 03/02/21 10:30 03/02/21 10:31 03/02/21 10:32 Temperature Pulse Rate 85 86 87 Respiratory Rate 21 22 21 Blood Pressure Pulse Oximetry 03/02/21 10:33 03/02/21 10:34 03/02/21 10:35 Temperature Pulse Rate 90 88 87 Respiratory Rate 19 28 H 20 Blood Pressure Pulse Oximetry 03/02/21 10:36 03/02/21 10:37 03/02/21 10:38 Temperature Pulse Rate 88 93 H 92 H Respiratory Rate 28 H 31 H 32 H Blood Pressure Pulse Oximetry 03/02/21 10:39 03/02/21 10:40 03/02/21 10:41 Temperature Pulse Rate 91 H 90 91 H Respiratory Rate 29 H 17 25 H Blood Pressure Pulse Oximetry 03/02/21 10:42 03/02/21 10:43 03/02/21 10:44 Temperature Pulse Rate 87 91 H 91 H Respiratory Rate 22 22 26 H Blood Pressure 136/71 Pulse Oximetry 97 93 03/02/21 10:45 03/02/21 10:46 03/02/21 10:47 Temperature Pulse Rate 89 89 92 H Respiratory Rate 20 20 20 Blood Pressure 142/68 H Pulse Oximetry 91 90 L 91 03/02/21 10:48 03/02/21 11:00 03/02/21 11:30 Temperature Pulse Rate 87 83 83 Respiratory Rate 19 17 17 Blood Pressure 146/68 H 141/72 H 132/66 Pulse Oximetry 93 95 94 03/02/21 12:00 03/02/21 12:04 03/02/21 12:30 Temperature Pulse Rate 83 81 83 Respiratory Rate 18 18 19 Blood Pressure 121/66 121/66 133/75 Pulse Oximetry 96 99 98 03/02/21 13:00 03/02/21 13:30 03/02/21 13:31 Temperature Pulse Rate 90 81 82 Respiratory Rate 21 17 11 L Blood Pressure 154/72 H 142/69 H Pulse Oximetry 95 98 99 03/02/21 14:00 03/02/21 14:11 03/02/21 14:38 Temperature 98.2 F Pulse Rate 81 85 58 L Respiratory Rate 16 Blood Pressure 134/64 134/64 Pulse Oximetry 99 95 03/02/21 14:39 03/02/21 15:00 Temperature Pulse Rate 78 82 Respiratory Rate 29 H 21 Blood Pressure 148/70 H Pulse Oximetry 98 98 Oxygen Delivery Method Room Air Oxygen Flow Rate 2 Narrative Exam Narrative: Elderly male in no obvious distress lying in his hospital bed, looks somewhat pale HEENT-normocephalic atraumatic Neck-no lymphadenopathy no bruits Lungs-Clear good breath sounds Heart-regular rate and rhythm with what sounds like extrasystoles, no murmur rub or gallop Abdomen-soft nontender nondistended positive bowel tones no rebound or guarding no hepatosplenomegaly Neuro-alert oriented x3 no cranial nerve defects no focal findings, did not test gait given his vertigo Objective Labs Result Diagrams: 03/02/21 07:30 03/03/21 05:05 Labs: Laboratory Results - last 24 hr 03/02/21 03/02/21 07:30 07:30 WBC 8.3 RBC 5.13 Hgb 16.2 Hct 47.9 MCV 93.4 MCH 31.6 MCHC 33.9 RDW 13.6 Plt Count 173 Neut % (Auto) 85.2 H Lymph % (Auto) 9.3 L [place] % (Auto) 4.8 Eos % (Auto) 0.5 L Baso % (Auto) 0.2 Neut # (Auto) 7100 H Lymph # (Auto) 800 L [place] # (Auto) 400 Eos # (Auto) 0 Baso # (Auto) 0 Sodium 133 L Potassium 2.9 L Chloride 95 L Carbon Dioxide 29 BUN 11 Creatinine 0.91 Estimated GFR > 60.0 BUN/Creatinine Ratio 12.1 Glucose 152 H Calcium 9.9 Total Bilirubin 0.8 AST 41 ALT 32 Alkaline Phosphatase 88 Total Creatine Kinase 57 CK-MB (CK-2) TNP CK-MB (CK-2) Rel Index TNP Troponin I < 0.012 Total Protein 6.9 Albumin 4.2 Globulin 2.7 Albumin/Globulin Ratio 1.6 Assessment & Plan Assessment & Plan narrative: 1. Patient with classic vertiginous symptoms causing significant GI issues in a ?motion sickness ?sort of fashion. This point will work on controlling symptoms with gentle IV fluids IV antiemetics and diazepam which I personally found to be quite efficacious in the situations for patients. If failing to improve over the next 24 hours or so strongly consider obtaining MRI with angiography of the brain to ensure no [employer] lesion causing ongoing symptoms. Fortunately head CT was essentially normal initially and thus there is clinical improvement 2. Hypokalemia-will replace with IV potassium given patient's inability really to hold anything down orally at this time. Patient does have a history of really quite profound hyponatremia which is not present currently. Apparently that is 1 other time that he felt ill like this but obviously that is not the etiology this time. 3. History of congestive heart failure-at this point will be gentle with IV fluids. Given his nausea vomiting I am going to hold his diuretic therapy for now. 4. VTE prophylaxis-Lovenox is entirely appropriate and will be ordered 5. Patient's other medical problems appear to be stable. Continue usual medications. Hopefully we can calm his symptoms enough he can take his oral meds. 6. Code status-patient requests full code in the event of sudden cardiac or respiratory arrest which is entirely appropriate. Scores NIHSS Level of Conciousness: Alert, keenly responsive Ask month/age: Answers both questions correctly. Open/close eyes, close hand: Performs both tasks correctly Best gaze horizontal: Normal Visual bruno: No visual loss Facial palsy: Normal symetrical movement Left arm drift: No drift for full 10 sec Right arm drift: No drift for full 10 sec Left leg drift: No drift for full 5 sec Right leg drift: No drift for full 5 sec Limb ataxia: Absent Sensory on face/arms/legs: Normal, no sensory loss Best language: No aphasia, normal Dysarthria: Normal Extinction or inattention: No abnormality Total NIH Stroke scale score: 0
[2021-03-02] MEDS: DEXTROSE 5%-0.45% NS 1,000 ML 100 ML IV (16:15)
[2021-03-02] MEDS: POTASSIUM CHLORIDE IN WATER 10 MEQ/100 ML PIGGYBACK 100 MEQ IV ×6 (16:20→22:45)
[2021-03-02 18:12] LABS: COVID19 - ADMIT (NP swab/PCR) Negative (Negative)
[2021-03-02] MEDS: FLUTICASONE 120 SPRAY/16 GM SPRAY.SUSP NASAL (20:39)
[2021-03-02] MEDS: TAMSULOSIN 0.4 MG CAPSULE 0.8 MG PO (20:39)
[2021-03-02] MEDS: lisinopriL 20 MG TABLET 40 MG PO (20:39)
[2021-03-02] MEDS: PRAVASTATIN 20 MG TABLET 40 MG PO (20:53)
[2021-03-02] MEDS: diazePAM 10 MG/2 ML SYRINGE 2 MG IV (20:53)
[2021-03-02] MEDS: NORTRIPTYLINE 10 MG CAPSULE 20 MG PO (20:53)
[2021-03-03] VITALS: BP 124/65; PULSE 72; RESP 16; TEMP 36.2; O2SAT 97
[2021-03-03] MEDS: DEXTROSE 5%-0.45% NS 1,000 ML 100 ML IV (02:45)
[2021-03-03 05:00] VITALS: BP 113/59; PULSE 66; RESP 16; TEMP 36.5; O2SAT 97
[2021-03-03] MEDS: LEVOTHYROXINE 75 MCG TABLET PO (05:47)
[2021-03-03 06:01] LABS: BUN Creatinine Ratio 12.4 (6-22); Blood Urea Nitrogen 12 mg/dL (9-20); Calcium 8.8 mg/dL (8.4-10.2); Carbon Dioxide 30 mmol/L (22-32); Chloride 97 mmol/L (98-107); Estimated Glomerular Filt Rate > 60.0 mL/min (>60); Glucose 118 mg/dL (80-110); HEMOLYSIS 23 (0-50); Potassium 3.7 mmol/L (3.4-5.1); Sodium 130 mmol/L (137-145)
[2021-03-03 08:00] VITALS: BP 109/62; PULSE 67; RESP 16; TEMP 36.6; O2SAT 96
[2021-03-03] MEDS: ENOXAPARIN 40 MG/0.4 ML SYRINGE SUBCUT (09:41)
[2021-03-03] MEDS: SODIUM CHLORIDE 0.9% FLUSH 10 ML IV (09:41)
[2021-03-03] MEDS: PANTOPRAZOLE DR 40 MG TABLET PO (09:41)
--- NOTE | 2021-03-03 10:15 | P.PN_ITS ---
Subjective Subjective Date Patient Seen: 03/03/21 Time Patient Seen: 10:15 Interval history: Patient sitting up in his bedside chair working on the container of fruit. Is moving his head freely without any particular difficulty as opposed to yesterday. Says he was up to the bathroom and had assistance and while it triggered a little bit of dizziness it was nothing like it had been before. No additional emesis Potassium is now normal this morning Exam Vital Signs (past 8 hours): - 03/03/21 05:00 03/03/21 08:00 Temperature 97.7 F 97.9 F Pulse Rate 66 67 Respiratory Rate 16 16 Blood Pressure 113/59 L 109/62 Pulse Oximetry 97 96 Oxygen Delivery Method Room Air Oxygen Flow Rate 0 Objective Labs Result Diagrams: 03/02/21 07:30 03/03/21 05:05 Labs: Laboratory Results - last 24 hr 03/02/21 03/03/21 16:45 05:05 Sodium 130 L Potassium 3.7 Chloride 97 L Carbon Dioxide 30 BUN 12 Creatinine 0.97 Estimated GFR > 60.0 BUN/Creatinine Ratio 12.4 Glucose 118 H Calcium 8.8 SARS-CoV-2 (PCR) Negative [facility] Medical History (Updated 03/02/21 @ 15:57 by Aime Hung MD) Alcohol abuse Congestive heart failure Depression Esophageal ulceration Essential hypertension GERD (gastroesophageal reflux disease) Hypothyroidism Mixed hyperlipidemia Venous stasis Surgical History Status post appendectomy Social History household members: spouse and children Smoking Status: Never smoker alcohol intake: never Assessment & Plan Assessment & Plan narrative: 1. Vertigo-appears to be much improved probably okay for discharge later today 2. Hypokalemia-now normalized. Almost certainly secondary to his emesis which is now been minimize 3. Congestive heart failure-no evidence of active congestive heart failure at this point. Continue with his usual medications
--- NOTE | 2021-03-03 11:04 | CM.DANOTE ---
DCP: Case received, EMR reviewed and met with patient. Introduced self and role. Was able to obtain information regarding patient's baseline activity status prior to hospitalization, as well as his current living situation. DCP assessment completed with information currently available. Patient is a 75 year old male who admitted yesterday afternoon to the care of the hospitalist team. PCP: Dr. Hoover. Payer: confirmed: [employer]age. Patient came to the hospital via ambulance secondary to patient having dizziness. Patient does have history of hearing issues as well. Patient is here for a work up, and also was noted to have some hypokalemia. Met with patient in his room. He was sitting up in his chair. He has a hearing deficit, and was wearing his device. Patient confirmed that he resides here in [place] with his family. He mentioned that he does have a cane and a walker for home use if needed. He also indicated that he can drive, but has not done so recently. P: DCP to continue to follow. Patient should be able to go home when he is deemed medically stable. Brandie Box RN/Clinical Outcomes Manager
--- NOTE | 2021-03-03 14:58 | PC.NURSE ---
Upon review of discharge medications with patient he and his state that he no longer takes some of the continued medications. Reviewed with Dr. Hung and home med list updated. New prescriptions for ondansetron and meclazine as ordered given to patient and his to fill at pharmacy of their choice. Patient's states she will Call Dr. Hoover's office tomorrow morning on Thursday to schedule a follow up appointment. Patient states understanding of home care instructions and handouts and has no further questions or concerns at this time. Patient escorted out via wheelchair to discharge to home with his and son. Instructed to call MD with questions or concerns or to seek care if symptoms worsen or return.
--- NOTE | 2021-03-04 07:42 | P.DS_ITS ---
History of Present Illness History of Present Illness Chief complaint: Dizziness last night, hx of ear problems Narrative: 75-year-old male who normally sees Dr. Zackary Hoover at [facility], who presented to the [facility] Emergency Department on date of admission with severe dizziness. He says the dizziness is producing nausea and vomiting. This is happen him in the past when he has had inner ear problems. Began sometime within the 24 hours prior to presentation. If he remains till he has pretty good but every time he moves at all he gets severe movement sense associated with some nausea and vomiting to the point where he has had dry heaving. Has had no numbness tingling hands feet arms legs. Has some mild discomfort in his abdomen. No difficulty vision speech swallowing ER evaluation was essentially unremarkable. Noncontrast enhanced head CT unremarkable. Labs essentially unremarkable, except for mild hypokalemia. Was given some Versed to assist with his evaluation which cause significant sedation but upon awakening patient had return of symptoms. Discharge Providers Provider Date of admission: 03/02/21 14:58 Discharge Date: 03/03/21 Primary care physician: Zackary Hoover MD Discharge provider: Aime Hung MD Summary Hospital Course Discharge Diagnosis: 1. Severe vertigo with nausea and vomiting 2. Hypokalemia, resolved 3. Hypothyroidism on replacement Hospital Course: Patient was admitted to the hospital floor. He was given IV fluids and IV potassium to replace his potassium. Also given IV antiemetics. In addition he had some IV diazepam. With all of this see slowly had significant reduction in symptoms to the point where he was minimally dizzy or vertiginous with movement of his head He was able to eat and drink much more normally Therefore he was felt to be stable for discharge by the morning of the 03 of March. His potassium had returned to normal with the intravenous potassium replacement. Status at Discharge Cognitive/behavioral status at discharge: at baseline, oriented Functional status at discharge: independent ambulation Overall status at discharge: patient is progressing back to baseline Exam Vital Signs (past 8 hours): Oxygen Delivery Method Room Air Oxygen Flow Rate 0 Objective Labs Result Diagrams: 03/02/21 07:30 03/03/21 05:05 [facility] Medical History Alcohol abuse Congestive heart failure Depression Esophageal ulceration Essential hypertension GERD (gastroesophageal reflux disease) Hypothyroidism Mixed hyperlipidemia Venous stasis Surgical History Status post appendectomy Social History household members: spouse and children Smoking Status: Never smoker alcohol intake: never Discharge Plan Discharge Plan Patient Disposition: Home Discharge orders & Medications Prescriptions: New fluticasone propionate 50 mcg/actuation [place],Suspension 2 spray intranasal BEDTIME Qty: 1 RF: 0 meclizine 12.5 mg Tablet 25 mg PO Q6HR PRN (Reason: Vertigo) Qty: 30 RF: 0 tamsulosin [Flomax] 0.4 mg Capsule 0.8 mg PO BEDTIME Qty: 60 RF: 0 pantoprazole 40 mg Tablet,Delayed Release (Dr/Ec) 40 mg PO DAILY Qty: 30 RF: 0 pravastatin 20 mg Tablet 40 mg PO BEDTIME Qty: 30 RF: 0 ondansetron 4 mg tablet,disintegrating 4 mg PO Q6H PRN (Reason: nausea and vomiting) Qty: 10 RF: 0 Continued hydrochlorothiazide 25 MG tablet 12.5 mg PO BID Qty: 0 RF: 0 potassium chloride 10 MEQ tablet extended release 20 meq PO BID Qty: 0 RF: 0 levothyroxine 75 mcg tablet 150 mcg PO DAILY RF: 0 tamsulosin 0.4 mg capsule,extended release 24hr 2 cap PO QHS RF: 0 furosemide 20 mg tablet 40 mg PO BID RF: 0 pantoprazole [Protonix] 40 MG tablet,delayed release (DR/EC) 40 mg PO DAILY RF: 0 Discontinued pravastatin [Pravachol] 40 MG tablet 60 mg PO DAILY Qty: 0 RF: 0 Follow up/Referrals: Zackary Hoover MD [Primary Care Provider] - 1 Week Discharge Health Status Multidrug resistant organism: No MDRO Diet/Activity/Treatments Diet: Diet as Tolerated Visit Report/Discharge Packet Instructions: DI for Dehydration -- Adult, How to Prevent Falls, DI for Dizziness-Nonvertigo Discharge Data Primary Care Provider: Zackary Hoover Attending Provider: Zackary Hoover
== END 2021-03-03 14:45 | disposition home or self-care (01) ==
LOC: ED 14:57 → AC 14:59
PROVIDERS: Admitting Provider Internal Medicine; Emergency Provider Emergency Medicine; PCP Family Medicine; Referring Provider Family Medicine; Visit Provider Family Medicine
DX: R42 Dizziness and giddiness (principal); R11.2 Nausea with vomiting, unspecified; E87.6 Hypokalemia; I11.0 Hypertensive heart disease with heart failure; I50.9 Heart failure, unspecified; E03.9 Hypothyroidism, unspecified; Z20.822 Contact with and (suspected) exposure to COVID-19
CPT/HCPCS: 36415; 70450; 74177; 80048; 80053; 82550; 84484; 85025; 87635; 93005; 93010; 96361; 96365; 96366; 96372; 96375; 96376; 99217; 99219; 99284; 99285; C9803; G0378; C9113; J1650; J2250; J2405; J2765; J3360; Q9967

== ENCOUNTER 2021-07-24 03:05 | Inpatient (IN) | payer OTHER, SELFPAY ==
[2021-03-02 16:27] VITALS: BMI 33.8
[2021-07-24] VITALS (9 sets, daily range): BP systolic 115–143; BP diastolic 53–89; PULSE 65–90; RESP 16–22; TEMP 36.1–37; O2SAT 96–100; BMI 27.5
--- NOTE | 2021-07-24 03:17 | DI.RAD.S_ITS ---
PROCEDURE: XR THORACIC SPINE 3V INDICATIONS: fall with back pain TECHNIQUE: 3 views of the thoracic spine were acquired. COMPARISON: None. FINDINGS: Bones: No fractures or dislocations. No suspicious bony lesions. 12 pairs of ribs are noted, and appear intact where visualized. Soft tissues: No paravertebral stripe thickening. IMPRESSION: No evidence acute bony abnormality of the thoracic spine. If clinical suspicion and/or symptoms persist, further assessment with repeat plain films, or advanced imaging (e.g., CT, MRI, or bone scan) may be helpful for further assessment. Comment: Final report is concordant with preliminary interpretation provided by [facility]. Dictated by: Antonio Wyatt M.D. on 07/24/2021 at 7:47 Approved by: Antonio Wyatt M.D. on 07/24/2021 at 7:48
--- NOTE | 2021-07-24 03:17 | DI.RAD.S_ITS ---
PROCEDURE: XR LUMBAR SPINE 2-3V INDICATIONS: fall with back pain TECHNIQUE: 3 views of the lumbar spine were acquired. COMPARISON: None. FINDINGS: Bones: 5 [id number] vertebrae are present. There is a mild superior endplate compression fracture of L2, which is age indeterminate. An old T12 compression is also noted. There is extensive lumbar degenerative change present. No suspicious bony lesions. Soft tissues: Overlying bowel gas pattern is normal. No suspicious soft tissue calcifications. IMPRESSION: 1. Age indeterminate L2 compression, old T12 compression. Comment: Lumbar spine MRI may be helpful to clarify fracture acuity of L2. Comment: Final report is concordant with preliminary interpretation provided by [facility]. Dictated by: Antonio Wyatt M.D. on 07/24/2021 at 7:48 Approved by: Antonio Wyatt M.D. on 07/24/2021 at 7:49
--- NOTE | 2021-07-24 03:17 | DI.RAD.S_ITS ---
PROCEDURE: XR PELVIS 1-2V INDICATIONS: hip pain after fall TECHNIQUE: 1 view(s) of the pelvis acquired. COMPARISON: None. FINDINGS: Bones: No fractures or dislocations. No suspicious bony lesions. Bilateral hip degenerative change. Soft tissues: Visualized bowel gas pattern is normal. No suspicious soft tissue calcifications. IMPRESSION: No evidence acute bony abnormality of the pelvis. If clinical suspicion and/or symptoms persist, further assessment with repeat plain films, or advanced imaging (e.g., CT, MRI, or bone scan) may be helpful for further assessment. Comment: Final report is concordant with preliminary interpretation provided by [facility]. Dictated by: Antonio Wyatt M.D. on 07/24/2021 at 7:46 Approved by: Antonio Wyatt M.D. on 07/24/2021 at 7:47
--- NOTE | 2021-07-24 03:19 | ED.GENADULT ---
HPI - General Adult General Chief complaint: Fall Stated complaint: generalized pain Time Seen by Provider: 07/24/21 03:14 Source: patient Mode of arrival: EMS Limitations: no limitations History of Present Illness HPI narrative: Patient is a 76-year-old male who is brought in by EMS after they were called by the patient's because she has been unable to get him up out of his chair today. Patient has a history of vertigo. He stated that yesterday he fell because the vertigo. He did spend a period of time on the floor because he was in a ?tight space ?he was eventually able to get of. He has spent quite a bit of the time since then sitting in a chair at home. He states that today he generally has pain all over. Does not describe specific weakness. States that his arms are beat up because of trying to get up over the past several hours. He denies chest pain. No shortness of breath. Has pain in his legs. No abdominal pain. No nausea vomiting. No headache. He did not hit his head. Not on anticoagulation. Related Data Home Medications Medication Instructions Recorded Confirmed hydrochlorothiazide 25 mg tablet 12.5 mg PO BID #0 01/09/13 03/02/21 potassium chloride 10 mEq 20 meq PO BID #0 01/09/13 03/02/21 tablet,extended release furosemide 20 mg tablet 40 mg PO BID 02/15/18 03/02/21 levothyroxine 75 mcg tablet 150 mcg PO DAILY 02/15/18 03/02/21 pantoprazole 40 mg tablet,delayed 40 mg PO DAILY 02/15/18 03/02/21 release (Protonix) tamsulosin 0.4 mg capsule 2 cap PO QHS 02/15/18 03/02/21 Previous Rx's Medication Instructions Recorded fluticasone propionate 50 2 spray INTRANASAL BEDTIME #1 ml 03/03/21 mcg/actuation nasal spray,suspension meclizine 12.5 mg tablet 25 mg PO Q6HR PRN #30 tab 03/03/21 ondansetron 4 mg disintegrating 4 mg PO Q6H PRN #10 tab 03/03/21 tablet pantoprazole 40 mg tablet,delayed 40 mg PO DAILY #30 tab 03/03/21 release pravastatin 20 mg tablet 40 mg PO BEDTIME #30 tab 03/03/21 tamsulosin 0.4 mg capsule (Flomax) 0.8 mg PO BEDTIME #60 cap 03/03/21 Allergies Allergy/AdvReac Type Severity Reaction Status Date / Time Penicillins [PENICILLINS] AdvReac Severe IT PIERCE Verified 02/16/18 00:58 LIKE MAD NOTHING DIGESTS Review of Systems Constitutional Constitutional: Reports fatigue, Reports frequent falls, Denies headache(s) and Reports weakness Eyes Eyes: Denies change in vision ENT Ears, Nose, Mouth, and Throat: Reports vertigo, Denies otalgia, Denies headache(s) and Denies sore throat Cardiovascular Cardiovascular: Reports as per HPI and Reports system reviewed and no additional complaints, except as documented Respiratory Respiratory: Reports as per HPI and Reports system reviewed and no additional complaints, except as documented Gastrointestinal Gastrointestinal: Reports as per HPI and Reports system reviewed and no additional complaints, except as documented Genitourinary Genitourinary: Reports system reviewed and no additional complaints, except as documented Musculoskeletal Musculoskeletal: Reports arthralgias, Reports back pain, Reports muscle weakness, Reports myalgias and Reports stiffness Integumentary/Breasts Skin/Breast: Reports lesions Neurologic Neurologic: Reports vertigo, Reports frequent falls, Denies headache(s) and Reports weakness Psychiatric Psychiatric: Reports system reviewed and no additional complaints, except as documented Endocrine Endocrine: Reports fatigue Hematologic/Lymphatic On Anticoagulants: No Patient History Medical History Alcohol abuse Congestive heart failure Depression Esophageal ulceration Essential hypertension GERD (gastroesophageal reflux disease) Hypothyroidism Mixed hyperlipidemia Venous stasis Surgical History Status post appendectomy Social History household members: spouse Smoking Status: Never smoker alcohol intake: never Smoking Status: Never smoker alcohol intake frequency: 0-2 drinks per day Substance Use Type: does not use Exam Initial Vital Signs Initial Vital Signs: Vital Signs Temperature 98.2 F 07/24/21 03:05 Pulse Rate 67 07/24/21 03:05 Respiratory Rate 20 07/24/21 03:05 Blood Pressure 143/89 H 07/24/21 03:05 Pulse Oximetry 98 07/24/21 03:05 Const General: disheveled Limitations: mental status not altered [facility] Head: normal to inspection and normocephalic Neck Neck: normal visual inspection Chest Chest: normal inspection of the chest, No crepitus and No tenderness Resp Effort & Inspection: normal respiratory effort Auscultation: clear to auscultation bilaterally Cardio Rate: regular rate Rhythm: regular rhythm GI Inspection: non-distended Palpation: soft Back/Spine/Pelvis Cervical Spine: No cervical muscular tenderness and No cervical spinal tenderness Thoracic/Lumbar Spine: paraspinal tenderness, thoracic spinal tenderness and lumbar spinal tenderness Skin Other: Multiple lesions especially in his upper extremity use in very stages of healing consistent with bruising and small skin tears. Patient also has changes to his bilateral lower extremities consistent with chronic venous stasis changes. Neuro General: patient alert, patient awake and moves all extremities Extrem General: capillary refill normal Psych Appearance: grossly normal and disheveled Course Orders Ordered: ED Orders 07/24/21 03:17 XR lumbar spine 2-3V Stat XR pelvis 1-2V Stat XR thoracic spine 3V Stat 07/24/21 03:25 Acetaminophen Stat Basic Metabolic Panel Stat Complete Blood Count AUTO DIFF Stat Ethanol (ETOH) Stat Hepatic (Liver) Panel Stat Ketones (Beta-Hydroxybutyrate) Stat Lipase Stat Magnesium Stat Osmolality, Serum Stat Phosphorous Stat Thyroid Stimulating Hormone Stat Troponin & CK Cardiac Panel Stat 07/24/21 04:04 COVID19 - ADMIT (DRAMA PROFESSOR swab/PCR) Stat EKG-12 Lead Stat 07/24/21 04:05 Urinalysis and Microscopic Stat Urine Drug Screen, Rapid Stat 07/24/21 04:11 Osmolality Urine Stat Sodium Urine Random Stat Sodium Chloride (Normal Saline 0.9%) 1,000 mls @ 150 mls/hr IV CONT EVARISTO Last Admin: 07/24/21 04:13 Dose: 150 mls/hr Documented by: ESTEFANÍA POTASSIUM CHLORIDE IN WATER (Potassium Cl 10 Meq/100 Ml Suly) 10 meq in 100 mls @ 100 mls/hr IV Q1H EVARISTO Stop: 07/24/21 08:14 Last Admin: 07/24/21 05:23 Dose: 100 mls/hr Documented by: Infusion: 07/24/21 05:15 Dose: 100 mls/hr Documented by: Admin: 07/24/21 04:15 Dose: 100 mls/hr Documented by: ESTEFANÍA Discontinued Medications Ketorolac Tromethamine (Ketorolac 30 Mg/Ml Vial) 15 mg IV NOW ONE Stop: 07/24/21 03:29 Last Admin: 07/24/21 03:32 Dose: 15 mg Documented by: ESTEFANÍA Vital Signs Vital signs: Vital Signs - 8 hr 07/24/21 03:05 07/24/21 04:07 07/24/21 04:30 Temperature 98.2 F Pulse Rate 67 82 80 Respiratory Rate 20 18 Blood Pressure 143/89 H 143/89 H Pulse Oximetry 98 98 98 Medical Decision Making Medical Records Medical records reviewed: Yes I reviewed the patient's medical records. Lab Data Lab results reviewed: Yes I reviewed the patient's lab results. Result diagrams: 07/24/21 03:25 07/24/21 03:25 Labs: Lab Results 07/24/21 07/24/21 07/24/21 Range/Units 03:25 03:25 03:25 WBC 8.3 (4.5-11.0) X10^3/uL RBC 4.51 (4.5-5.9) X10^6/uL Hgb 14.6 (13.5-17.5) g/dL Hct 41.4 (41-53) % MCV 91.7 (80-100) fL MCH 32.3 (26-34) PG MCHC 35.2 (30-36) % RDW 13.7 (11.6-14.8) % Plt Count 195 (150-400) X10^3/uL Neut % (Auto) 75.0 (50-75) % Lymph % (Auto) 14.3 L (25-40) % Calvert % (Auto) 9.2 (3-14) % Eos % (Auto) 0.9 L (2-4) % Baso % (Auto) 0.6 (0-2) % Neut # (Auto) 6200 (5783-9659) /uL Lymph # (Auto) 1200 (5237-3761) /uL Calvert # (Auto) 800 (0-900) /uL Eos # (Auto) 100 (0-450) /uL Baso # (Auto) 100 (0-100) /uL Sodium 117 L* (137-145) mmol/L Potassium 1.9 L* (3.4-5.1) mmol/L Chloride 67 L* (98-107) mmol/L Carbon Dioxide 41 H* (22-32) mmol/L BUN 14 (9-20) mg/dL Creatinine 0.99 (0.66-1.25) mg/dL Estimated GFR > 60.0 (>60) mL/min BUN/Creatinine Ratio 14.1 (6-22) Glucose 126 H (80-110) mg/dL Calcium 9.5 (8.4-10.2) mg/dL Phosphorus 2.4 (2.3-3.7) mg/dL Magnesium 2.0 (1.6-2.3) mg/dL Total Bilirubin 1.4 H (0.2-1.3) mg/dL Conjugated Bilirubin 0.0 (0.0-0.3) md/dL Unconjugated Bilirubin 1.0 (0.0-1.1) mg/dL AST 115 H (17-59) IU/L ALT 33 (<50) IU/L Alkaline Phosphatase 116 (38-126) U/L Total Creatine Kinase 472 H (55-170) U/L CK-MB (CK-2) 2.35 (<2.37) ng/mL CK-MB (CK-2) Rel Index 0.5 L (1.5-5.0) % Troponin I < 0.012 (0.01-0.034) ng/mL Total Protein 6.7 (6.3-8.2) g/dL Albumin 4.0 (3.5-5.0) g/dL Globulin 2.7 (1.7-4.1) g/dL Albumin/Globulin Ratio 1.5 (1.0-2.8) Lipase 89 (23-300) U/L TSH (0.47-4.68) uIU/mL Acetaminophen (10-30) ug/mL Ethyl Alcohol ( - 10) mg/dL Ketones (<0.27) mmol/L SARS-CoV-2 (PCR) (Negative) 07/24/21 07/24/21 07/24/21 Range/Units 03:25 03:25 04:04 WBC (4.5-11.0) X10^3/uL RBC (4.5-5.9) X10^6/uL Hgb (13.5-17.5) g/dL Hct (41-53) % MCV (80-100) fL MCH (26-34) PG MCHC (30-36) % RDW (11.6-14.8) % Plt Count (150-400) X10^3/uL Neut % (Auto) (50-75) % Lymph % (Auto) (25-40) % Calvert % (Auto) (3-14) % Eos % (Auto) (2-4) % Baso % (Auto) (0-2) % Neut # (Auto) (0383-8509) /uL Lymph # (Auto) (2942-6196) /uL Calvert # (Auto) (0-900) /uL Eos # (Auto) (0-450) /uL Baso # (Auto) (0-100) /uL Sodium (137-145) mmol/L Potassium (3.4-5.1) mmol/L Chloride (98-107) mmol/L Carbon Dioxide (22-32) mmol/L BUN (9-20) mg/dL Creatinine (0.66-1.25) mg/dL Estimated GFR (>60) mL/min BUN/Creatinine Ratio (6-22) Glucose (80-110) mg/dL Calcium (8.4-10.2) mg/dL Phosphorus (2.3-3.7) mg/dL Magnesium (1.6-2.3) mg/dL Total Bilirubin (0.2-1.3) mg/dL Conjugated Bilirubin (0.0-0.3) md/dL Unconjugated Bilirubin (0.0-1.1) mg/dL AST (17-59) IU/L ALT (<50) IU/L Alkaline Phosphatase (38-126) U/L Total Creatine Kinase (55-170) U/L CK-MB (CK-2) (<2.37) ng/mL CK-MB (CK-2) Rel Index (1.5-5.0) % Troponin I (0.01-0.034) ng/mL Total Protein (6.3-8.2) g/dL Albumin (3.5-5.0) g/dL Globulin (1.7-4.1) g/dL Albumin/Globulin Ratio (1.0-2.8) Lipase (23-300) U/L TSH 0.112 L (0.47-4.68) uIU/mL Acetaminophen < 10 L (10-30) ug/mL Ethyl Alcohol < 10 ( - 10) mg/dL Ketones 0.39 H (<0.27) mmol/L SARS-CoV-2 (PCR) Negative (Negative) Imaging Data Pelvis x-ray: Radiologist's Impression: No fractures or malalignment demonstrated Thoracic spine x-ray: Radiologist's Impression: No compression fractures or listhesis Lumbar spine x-ray: Radiologist's Impression: Superior endplate compression fracture of L2 vertebral body with 25% loss of vertebral body height is of indeterminate age ECG Data Attestation: I personally reviewed and interpreted this ECG as follows: Prior ECG tracings: not available for review Interpretation: Sinus rhythm Ventricular rate 90 First-degree AV block with a OH interval to 1 0 milliseconds Artifact noted Normal axis One PVC No ST T wave changes MDM Narrative Medical decision making narrative: Patient is weak and also has generalized pain. Does have electrolyte abnormalities. Unsure the exact etiology. He has several issues that could potentially be causing this. He is on a diuretic, also has thyroid issues, also considered other etiologies such as CVA, malnutrition, dehydration, excessive free water intake and others. I did discuss the case with Dr. Babcock on-call for the patient's primary provider who will admit for further evaluation and treatment. Did discuss the need for admission with the patient. He expressed understanding and agreement as well. Discharge Plan Departure Patient Disposition: Admitted As Inpatient Clinical Impression: Hyponatremia, Hypokalemia, Weakness, Compression fracture of L2 Admit Date/Time: 07/24/21 04:46 Admit Provider: Karina Babcock
[2021-07-24] MEDS: KETOROLAC 30 MG/ML VIAL 15 MG IV (03:32)
[2021-07-24 03:36] LABS: Add Manual Diff / Slide Review NO; Basophils Absolute Auto 100 /uL (0-100); Basophils Percent Auto 0.6 % (0-2); Eosinophils Absolute Auto 100 /uL (0-450); Eosinophils Percent Auto 0.9 % (2-4); Hematocrit 41.4 % (41-53); Hemoglobin 14.6 g/dL (13.5-17.5); Lymphocytes Absolute Auto 1200 /uL (1100-4500); Lymphocytes Percent Auto 14.3 % (25-40); Mean Corpuscular HGB Conc 35.2 % (30-36); Mean Corpuscular Hemoglobin 32.3 PG (26-34); Mean Corpuscular Volume 91.7 fL (80-100); Monocytes Absolute Auto 800 /uL (0-900); Monocytes Percent Auto 9.2 % (3-14); Neutrophils Absolute Auto 6200 /uL (1500-7000); Platelet Count 195 X10^3/uL (150-400); Red Blood Cell Count 4.51 X10^6/uL (4.5-5.9); Red Cell Distribution Width 13.7 % (11.6-14.8); White Blood Cell Count 8.3 X10^3/uL (4.5-11.0)
[2021-07-24 03:43] LABS: BUN Creatinine Ratio 14.1 (6-22); Blood Urea Nitrogen 14 mg/dL (9-20); Calcium 9.5 mg/dL (8.4-10.2); Estimated Glomerular Filt Rate > 60.0 mL/min (>60); Glucose 126 mg/dL (80-110)
[2021-07-24 03:57] LABS: HEMOLYSIS 18 (0-50)
[2021-07-24 04:03] LABS: Chloride 67 mmol/L (98-107)
[2021-07-24 04:04] LABS: Carbon Dioxide 41 mmol/L (22-32); Potassium 1.9 mmol/L (3.4-5.1); Sodium 117 mmol/L (137-145)
[2021-07-24] MEDS: SODIUM CHLORIDE 0.9% 1,000 ML 150 ML IV ×3 (04:13→20:01)
[2021-07-24] MEDS: POTASSIUM CHLORIDE IN WATER 10 MEQ/100 ML PIGGYBACK 100 MEQ IV ×11 (04:15→23:21)
[2021-07-24 04:31] LABS: Acetaminophen < 10 ug/mL (10-30); Ethanol (ETOH) < 10 mg/dL
[2021-07-24 04:38] LABS: Troponin I < 0.012 ng/mL (0.01-0.034)
[2021-07-24 04:50] LABS: Alanine Aminotransferase 33 IU/L (<50); Albumin Globulin Ratio 1.5 (1.0-2.8); Alkaline Phosphatase 116 U/L (38-126); Aspartate Aminotransferase 115 IU/L (17-59); Bilirubin Total 1.4 mg/dL (0.2-1.3); Creatine Kinase 472 U/L (55-170); Globulin 2.7 g/dL (1.7-4.1); HEMOLYSIS 25 (0-50); Lipase 89 U/L (23-300); Phosphorous 2.4 mg/dL (2.3-3.7); Total Protein 6.7 g/dL (6.3-8.2)
[2021-07-24 04:54] LABS: Ketones (Beta-Hydroxybutyrate) 0.39 mmol/L (<0.27)
[2021-07-24 05:05] LABS: CKMB % Relative Index 0.5 % (1.5-5.0); Creatine Kinase MB 2.35 ng/mL (<2.37)
[2021-07-24 05:11] LABS: Thyroid Stimulating Hormone 0.112 uIU/mL (0.47-4.68)
[2021-07-24 05:21] LABS: COVID19 - ADMIT (NP swab/PCR) Negative (Negative)
--- NOTE | 2021-07-24 07:45 | PC.ADMIT ---
[id number] Admission Note: The patient,Jay Reed,76 y/o, was given written information regarding hospital policies, unit procedures and contact persons. Pt severely hard of hearing with inadequate hearing aids. Pt is a poor health historian and is unable to state home medications or supplements other than herbs and various vitamin letters. Pt suspicious and uncooperative, hyperfixating on items of personal interest. In no apparent cardiovascular or respiratory distress. Alert and oriented. Cap refill on toes >2 seconds. BLE edema, BLE have a 6 inch stretch of leg above ankles with no edema and low muscle mass- looks indented. PVD discoloration. Pt reports generalized pain in body, including back and arms and tailbone. Skin covered in bruises and minor skin tears. Allevyn applied bilat elbows. Patient's smoking status: Never smoker. Vital Signs - 8 hr 07/24/21 03:05 07/24/21 04:07 07/24/21 04:30 Temperature 98.2 F Pulse Rate 67 82 80 Respiratory Rate 20 18 Blood Pressure 143/89 H 143/89 H Pulse Oximetry 98 98 98 07/24/21 05:00 07/24/21 07:01 Temperature 98.1 F Pulse Rate 82 90 Respiratory Rate 22 18 Blood Pressure 132/62 Pulse Oximetry 100 100
--- NOTE | 2021-07-24 09:08 | P.HP_ITS ---
History of Present Illness History of Present Illness Date Patient Seen: 07/24/21 Time Patient Seen: 09:08 Date of Onset of Symptoms: 07/23/21 Chief complaint: generalized pain Narrative: Pt relates tale of progressive mobility issues in home trailer culminating in extended period down yesterday unable to get up so called ambulance. Report from EMS indicated strong hoarding issue with extremely limited space to maneuver. He has mostly been staying in his chair and not getting up or out that much. He is extremely concerned today about continuing his home regimens of bedtime melatonin as well as unspecified herbs which he is extremely anxious to continue ingesting. He reports generalized pain although scans in ED noted only a vertebral compression fracture of indeterminate age. ED bloodwork revealed severely deranged metabolites. He denies feeling ill of late just in pain. Patient History Medical History Alcohol abuse Congestive heart failure Depression Esophageal ulceration Essential hypertension GERD (gastroesophageal reflux disease) Hypothyroidism Mixed hyperlipidemia Venous stasis Surgical History Status post appendectomy Family & Social History Social History: household members spouse Prior Living Arrangements Mobile home Safety & Behavioral: Feels Safe in Current Yes Environment Been Physically Hurt or No Threatened By a Person Suicidal Ideation Description None Suicide Plan Description No Plan Tobacco & Substance use: Smoking Status Never smoker alcohol intake never alcohol intake frequency 0-2 drinks per day Substance Use Type does not use Meds Home Medications and Allergies Home Medications Medication Instructions Recorded Confirmed Type hydrochlorothiazide 25 mg tablet 12.5 mg PO BID #0 01/09/13 07/24/21 History furosemide 20 mg tablet 40 mg PO BID 02/15/18 07/24/21 History levothyroxine 75 mcg tablet 150 mcg PO DAILY 02/15/18 07/24/21 History tamsulosin 0.4 mg capsule 1 cap PO QHS 02/15/18 07/24/21 History pantoprazole 40 mg tablet,delayed 40 mg PO DAILY #30 tab 03/03/21 07/24/21 Rx release pravastatin 20 mg tablet 40 mg PO BEDTIME #30 tab 03/03/21 07/24/21 Rx Allergies Allergy/AdvReac Type Severity Reaction Status Date / Time Penicillins [PENICILLINS] AdvReac Severe IT PIERCE Verified 02/16/18 00:58 LIKE MAD NOTHING DIGESTS Review of Systems Review of Systems Narrative: all systems reviewed and negative except as otherwise documented in HPI Exam Vital Signs (past 8 hours): - 07/24/21 03:05 07/24/21 04:07 07/24/21 04:30 Temperature 98.2 F Pulse Rate 67 82 80 Respiratory Rate 20 18 Blood Pressure 143/89 H 143/89 H Pulse Oximetry 98 98 98 07/24/21 05:00 07/24/21 07:01 Temperature 98.1 F Pulse Rate 82 90 Respiratory Rate 22 18 Blood Pressure 132/62 Pulse Oximetry 100 100 Oxygen Delivery Method Room Air Oxygen Flow Rate 0 Narrative Exam Narrative: alert sitting up in bed inquiring after status of herbs HENMT Other: poor hearing poor vision Resp Effort & Inspection: normal respiratory effort and able to speak in complete sentences Auscultation: clear to auscultation bilaterally Cardio Other: regular rate with frequent skipped beats, S1/S2 GI Other: soft nontender nbs Skin Other: sundry small lesions and breakdowns with pads applied to sacrum and elbows. odor of fermentation. Extrem Other: hemosiderin staining on feet and calves bilaterally mild venous stasis rash bilaterally Psych Appearance: disheveled Speech and Movement: speech clear Objective Labs Result Diagrams: 07/24/21 03:25 07/24/21 11:51 Labs: Laboratory Results - last 24 hr 07/24/21 07/24/21 07/24/21 03:25 03:25 03:25 WBC 8.3 RBC 4.51 Hgb 14.6 Hct 41.4 MCV 91.7 MCH 32.3 MCHC 35.2 RDW 13.7 Plt Count 195 Neut % (Auto) 75.0 Lymph % (Auto) 14.3 L Andrews % (Auto) 9.2 Eos % (Auto) 0.9 L Baso % (Auto) 0.6 Neut # (Auto) 6200 Lymph # (Auto) 1200 Andrews # (Auto) 800 Eos # (Auto) 100 Baso # (Auto) 100 Sodium 117 L* Potassium 1.9 L* Chloride 67 L* Carbon Dioxide 41 H* BUN 14 Creatinine 0.99 Estimated GFR > 60.0 BUN/Creatinine Ratio 14.1 Glucose 126 H Calcium 9.5 Phosphorus 2.4 Magnesium 2.0 Total Bilirubin 1.4 H Conjugated Bilirubin 0.0 Unconjugated Bilirubin 1.0 AST 115 H ALT 33 Alkaline Phosphatase 116 Total Creatine Kinase 472 H CK-MB (CK-2) 2.35 CK-MB (CK-2) Rel Index 0.5 L Troponin I < 0.012 Total Protein 6.7 Albumin 4.0 Globulin 2.7 Albumin/Globulin Ratio 1.5 Lipase 89 TSH Acetaminophen Ethyl Alcohol Ketones SARS-CoV-2 (PCR) 07/24/21 07/24/21 07/24/21 03:25 03:25 04:04 WBC RBC Hgb Hct MCV MCH MCHC RDW Plt Count Neut % (Auto) Lymph % (Auto) Andrews % (Auto) Eos % (Auto) Baso % (Auto) Neut # (Auto) Lymph # (Auto) Andrews # (Auto) Eos # (Auto) Baso # (Auto) Sodium Potassium Chloride Carbon Dioxide BUN Creatinine Estimated GFR BUN/Creatinine Ratio Glucose Calcium Phosphorus Magnesium Total Bilirubin Conjugated Bilirubin Unconjugated Bilirubin AST ALT Alkaline Phosphatase Total Creatine Kinase CK-MB (CK-2) CK-MB (CK-2) Rel Index Troponin I Total Protein Albumin Globulin Albumin/Globulin Ratio Lipase TSH 0.112 L Acetaminophen < 10 L Ethyl Alcohol < 10 Ketones 0.39 H SARS-CoV-2 (PCR) Negative Assessment & Plan Assessment & Plan narrative: #acute severe electrolytic derangement #hyponatremia #hypokalemia with first degree heart block #hypochloremia continue IVF @ 150 with K-repletion and 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 urine studies pending holding lasix PT./OT consulted etiology suspect intake irregularities dietary input appreciated #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
--- NOTE | 2021-07-24 10:30 | PT.IIE ---
Medical History (Last Reviewed 07/24/21 @ 05:53 by Milan Beaulieu DO) Alcohol abuse Congestive heart failure Depression Esophageal ulceration Essential hypertension GERD (gastroesophageal reflux disease) Hypothyroidism Mixed hyperlipidemia Venous stasis Physical Therapy Inpatient Evaluation/Re-Eval M1 PT/OT-IP Prior Functional Status Start: 07/24/21 11:13 Freq: NEEDED Status: Active Protocol: Document 07/24/21 10:30 OF (Rec: 07/24/21 11:35 OF [id number]) Medical Review Prior Functional Status Medical History Reviewed Yes Communication Pt is [place] with limited help from hearing amplifier Mobility and Gait Pt states he used stuff within home to navigate, reports there is no room for a walker in my trailer Activities of Daily Living and IADL's Pt states he has limited assist from his son and Prior Functional Level (Other details) Pt states he used bed el at baseline becuase he could not access bathroom Social History Household Members spouse Living Arrangements Mobile home Number of Floors (Floors) One Floor M2 PT-IP Current Condition Start: 07/24/21 11:13 Freq: NEEDED Status: Active Protocol: Document 07/24/21 10:30 OF (Rec: 07/24/21 11:35 OF [id number]) Physical Therapy Current Condition Current Condition Evaluation Date 07/24/21 Treatment Diagnosis Generalized weakness Onset Date 07/24/21 M3 PT-IP Subjective Start: 07/24/21 11:13 Freq: NEEDED Status: Active Protocol: Document 07/24/21 10:30 OF (Rec: 07/24/21 11:35 OF [id number]) Subjective Physical Therapy Visit Type Type Initial Evaluation Visit Start Time 10:05 Visit Stop Time 10:30 Total Visit Minutes 25 Number of VEST BASTER Visits 0 Physical Therapy Visit Comments Patient Comments Pt oriented x3, but has difficulty perseverating on PLOF, or POC Patient Goals feel better than now Therapy Pain Assessment Pain When Pain Assessed At Rest Pain Present Pain Present Pain Reported Location Generalized Intensity 3 Scale Used Numeric (0 - 10) Description Aching Pain Behaviors Facial Grimacing Pain Management Techniques Distraction M4 PT-IP Mobility and Gait Start: 07/24/21 11:13 Freq: NEEDED Status: Active Protocol: Document 07/24/21 10:30 OF (Rec: 07/24/21 11:35 OF [id number]) PT-Bed Mobility Assessment Rolling Type of Rolling Roll to Right Level of Assist Maximal Assistance Supine to Sit Supine to Sit Moderate Assistance Sit to Supine Sit to Supine Moderate Assistance Scooting Scooting to Edge of Bed Maximum Assistance Scooting Up and Down in Bed Maximum Assistance PT-Transfer Assessment Comments Mobility Comments Sit to stand, or AMB deferred due to difficulty with bed mobility, confusion Gait Assessment Gait Able to Maintain Weight Bearing Status No During Gait Comments Gait Comments Deferred due to difficulty with bed mobility, confusion PT-Balance Assessment Sitting Balance and Reactions Static Sitting Balance Ability Fair Comments Other Balance Tests/Deviations/Treatment Pt unable to stand : M5 PT-IP Objective Assessments Start: 07/24/21 11:13 Freq: NEEDED Status: Active Protocol: Document 07/24/21 10:30 OF (Rec: 07/24/21 11:35 OF [id number]) Orientation Orientation/Cognition Level of Alertness Alert Orientation Name,Age,Birthday,Month,Year, Place,Situation Safety Awareness Decreased Safety Awareness Comments pt is confused, but oriented Gross Range of Motion Lower Extremity ROM Impairments Pt does not tolerate AAROM for knees or ankles due to pain Strength Lower Extremity Strength Assessment Bilaterally Impaired Comments Strength Comments unale to test due to pain, demonstrates weakness bilat Coordination Assessment Gross Coordination Gross Coordination WNL Sensation Assessment Sensation Gross Sensation WNL Light Touch Intact Comments Sensation Comments hypersensitive over bilat LE M6 PT-IP Treatment Start: 07/24/21 11:13 Freq: NEEDED Status: Active Protocol: Document 07/24/21 10:30 OF (Rec: 07/24/21 11:35 OF [id number]) Physical Therapy Treatment Education Education Provided Safety M7 PT-IP Assessment and Plan Start: 07/24/21 11:13 Freq: NEEDED Status: Active Protocol: Document 07/24/21 10:30 OF (Rec: 07/24/21 11:35 OF [id number]) PT Summary Assessment and Plan Potential Rehabilitation Potential Good Status of Condition at Evaluation Evolving Summary Impairments Pain,ROM,Strength,Balance, Transfers,Gait,Activity Tolerance Assessment Summary Jay is a confused 76 yo male hospitalized after falling at home and being unable to get up. He has difficulty recalling home set up, or following instructions for assessment. He perseverates throughout assessment and requires redirection for bed mobility. Transfers and gait training deferred due to MAX A for bed mobility and assist x2 to remain sitting EOB. Pt will require further intervention to improve I with bed mobility, initiate transfer training, and initiate gait training. Pt may benefit from acute rehab to continue to improve LE strength, improve I with transfers, return to AMB, and reduce risk for re- hospitalization. Goals Bed Mobility Goal Independent Transfer Goal Standby Assistance Gait Goal Minimal Assistance Gait Distance 25ft Days to Meet Goals 7 Frequency of Treatment Frequency Of Treatment Once a Day Treatment Plan Physical Therapy Treatment Plan Bed Mobility Training,Transfer Training,Gait Training, Therapeutic Exercise,Balance Retraining,Neuromuscular Re-ed Weight Bearing Status Weight Bearing Status Weight Bear as Tolerated Recommendations To Nursing Amount of Assist Needed 2 Person Assist Discharge Recommendations PT Discharge Recommendations Home vs SNF,SNF vs Acute Rehab
--- NOTE | 2021-07-24 10:47 | OT.IP.EVAL ---
Past Medical History (Last Reviewed 07/24/21 @ 05:53 by Milan Beaulieu DO) Alcohol abuse Congestive heart failure Depression Esophageal ulceration Essential hypertension GERD (gastroesophageal reflux disease) Hypothyroidism Mixed hyperlipidemia Status post appendectomy Venous stasis Surgical History (Last Reviewed 03/04/21 @ 07:43 by Aime Hung MD) Status post appendectomy Occupational Therapy Inpatient Evaluation/Re-Eval M1 PT/OT-IP Prior Functional Status Start: 07/24/21 11:13 Freq: NEEDED Status: Active Protocol: Document 07/24/21 10:30 OF (Rec: 07/24/21 11:35 OF [id number]) Medical Review Prior Functional Status Medical History Reviewed Yes Communication Pt is RUBY with limited help from hearing amplifier Mobility and Gait Pt states he used stuff within home to navigate, reports there is no room for a walker in my trailer Activities of Daily Living and IADL's Pt states he has limited assist from his son and Prior Functional Level (Other details) Pt states he used bed el at baseline because he could not access bathroom Social History Household Members spouse Living Arrangements Mobile home Number of Floors (Floors) One Floor M2 OT-IP Current Condition Start: 07/24/21 13:02 Freq: Status: Active Protocol: Document 07/24/21 10:20 [facility] (Rec: 07/24/21 13:21 [facility] [id number]) Occupational Therapy Current Condition Current Condition Evaluation Date 07/24/21 Treatment Diagnosis Hyponatremia, decreased mobility Diagnosis Onset Date 07/24/21 M3 OT- IP Subjective and Pain Start: 07/24/21 13:02 Freq: Status: Active Protocol: Document 07/24/21 10:20 [facility] (Rec: 07/24/21 13:21 [facility] [id number]) OT- Subjective Occupational Therapy Visit Type Type Initial Evaluation Visit Start Time 10:20 Visit Stop Time 10:47 Total Visit Minutes 27 Occupational Therapy Visit Comments Patient Comments Pt with PT when OT came to see pt for OT eval. Pt having low sodium and potassium level per hospitalist okay to assess pt. Per nursing states to just assess bed mobility for now would be best. Patient/Caregiver Goals Pt did not state. OT Pain Assessment Pain When Pain Assessed During Mobility Pain Present Pain Present Pain Reported M4 OT- IP ADL's Start: 07/24/21 13:02 Freq: Status: Active Protocol: Document 07/24/21 10:20 [facility] (Rec: 07/24/21 13:21 [facility] [id number]) OT [id number] Comments OT Self-Feeding Comments NOt at meal time. OT ADL-Grooming Comments OT Grooming Comments Pt did not perform. OT ADL-Dressing General Eval Lower Body Dressing Ability Total Assistance Comments OT Dressing Comments Total assist for socks. OT ADL-Toileting Comments OT Toileting Comments NOt performed. OT ADL-Bathing Comments OT Bathing Comments Sponge bath more appropriate at this time. M5 OT- IP IADL's Start: 07/24/21 13:02 Freq: Status: Active Protocol: Document 07/24/21 10:20 [facility] (Rec: 07/24/21 13:21 [facility] [id number]) OT-Instrumental Activities of Daily Living Home Safety Awareness Home Safety Comments NOt able to fully assess as mainly just completes bed mobility with pt at this time. M6 OT- IP Functional Cognition Start: 07/24/21 13:02 Freq: Status: Active Protocol: Document 07/24/21 10:20 [facility] (Rec: 07/24/21 13:21 [facility] [id number]) Cognitive Factors Limiting Selfcare Function Cognitive Ability Level of Alertness Alert,Confusional State Patient Orientation Name,Place Ability to Follow Commands Able to Follow One Step Commands with Increased Time, Able to Follow One Step Commands with Repetition Cognitive Comments Cognitive Assessment Comments Pt very hard of hearing and very difficulty to assess pt ability to follow directions and comprehend information. Pt tends to perseverate on information. In addition pt's low sodium may also be affecting his cognition. OT- Vision and Hearing OT- Hearing Assessment OT- Hearing Assessment Hearing Impaired OT- Vision Assessment Vision Assessment Comments Pt states can not see out of his right eye. M7 OT- IP Mobility and Balance Start: 07/24/21 13:02 Freq: Status: Active Protocol: Document 07/24/21 10:20 [facility] (Rec: 07/24/21 13:21 [facility] [id number]) OT- Bed Mobility Assessment Rolling Level of Assistance Maximum Assistance Supine to Sit Supine to Sit Assist Maximum Assistance,2 Person Assistance Sit to Supine Sit to Supine Assist Maximum Assistance,2 Person Assistance OT-Transfer Assessment Comments Mobility Comments MAX AX 2 for all bed mobility needs at this time and heavy use of green pad to assist to position pt. OT- Gait Assessment Comments Gait Ability Comments Only bed mobility completed at this time. BP supine 111/55, sitting 135/82 and back in bed 123/61. OT- Balance Assessment Sitting Balance and Reactions Static Sitting Balance Ability Poor Dynamic Sitting Balance Ability Poor Comments Other Balance Tests/Deviations/Treatment Initially pt needing MODA for : sitting balance and then needing close SBA once positioned. Pt tends to sit into posterior tilt. M8 OT- IP Objective Assessments Start: 07/24/21 13:02 Freq: Status: Active Protocol: Document 07/24/21 10:20 [facility] (Rec: 07/24/21 13:21 [facility] [id number]) OT Gross Range of Motion Upper Extremity Range of Motion ROM Impairments Pt able to use his arm to assist for bed mobility needs. OT Strength Comments Strength Comments BUE strength at least 3-/5 as pt able to assist for bed mobility needs. M9 OT- IP Assessment and Plan Start: 07/24/21 13:02 Freq: Status: Active Protocol: Document 07/24/21 10:20 [facility] (Rec: 07/24/21 13:21 [facility] [id number]) OT Summary Assessment and Plan Potential Rehabilitation Potential Fair Analytic Complexity at Evaluation High Summary OT Impairments Pain,Strength,Balance, Functional Cognition, Functional Mobility,Grooming, Dressing,Toileting,Bathing, Toilet Transfers,Shower Transfers,Activity Tolerance Progress Towards Goals Slow Progress due to Pain,Slow Progress due to Medical Issues,Slow Progress due to Activity Tolerance,Slow Progress due to Cognition Assessment Summary Pt MOD complexity and pt main barriers are now needing 2 person extensive assist for all bed mobility needs. Pt only seen for bed mobility as per nursing suggestion as pt's sodium and potassium are running low. Pt would benefit from skilled rehab at this time. To continue to assess pt for OT needs and updated OT goals. Goals Dressing Goal Minimal Assistance Toileting Goal Standby Assistance Bathing Goal Minimal Assistance Toilet Transfer Goal Minimal Assistance Shower Transfer Goal Minimal Assistance Days to Meet Goals 30 Frequency of Treatment Frequency Of Treatment Once a Day Treatment Plan OT Treatment Plan ADL Training,Functional Cognition Training,Functional Mobility,Patient/Family Education,Discharge Planning Other Treatment Recommendations and Next [place] [facility] [place] 2 Treatment Focus with FWW. Discharge Recommendations OT Discharge Recommendations SNF Rehab Transportation Needs at Discharge Wheelchair/Cabulance
[2021-07-24 12:22] LABS: BUN Creatinine Ratio 13.8 (6-22); Blood Urea Nitrogen 13 mg/dL (9-20); Calcium 8.7 mg/dL (8.4-10.2); Estimated Glomerular Filt Rate > 60.0 mL/min (>60); Glucose 90 mg/dL (80-110); HEMOLYSIS < 15 (0-50); Magnesium 1.9 mg/dL (1.6-2.3)
--- NOTE | 2021-07-24 12:26 | DIET.PN1 ---
Dietary Progress Note Assessment: 76y M admitted for generalized pain and weakness, electrolyte derangement brought in after pts Avani activated EMS referred to nutrition for assessment. 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 Pt [place] using voice amplifier. Pt lives in [address] [facility] with . Per EMS home is hoarded with very little room for ambulation. Pt reports spending most of his time in a zero gravity air camping chair including overnights and with leg rest extended, there is no room to move around his chair. Pt had fallen into a tight area and was not able to hoist himself up and out throughout the night leading to EMS call. Pt reports cutting diuretic doses down as they make him pee all night and with his current electrolyte imbalance, weakness, and pain, pt unable to ambulate to bathroom with no room for walker set up. Pt has been using emesis basin to collect urine and feces while sitting at edge of his chair for unknown period of time. Pt reports taking herbal supplements including a diuretic but could not remember what name was. Pt reports his has been using reflexology and reflexology tools to help with his multiple health problems. Pt reports no state assistance for nutrition, no EBT benefits, no Meals on Wheels. Pt reports food insecurity secondary to cost of food. Pt consumes two meals daily with occasional evening snack. Nursing noted pt frequently consumes spam sandwiches, however, this was not revealed to RD by patient. Usual Day: B(11am): jacob and eggs or pork and beans or tv dinner with coffee and food flavored with granulated garlic and xtra hot Mrs. Dash D(5pm): cottage cheese, sweet pickles c granulated garlic, banana or other fruit sometimes snack of fruit or sokaogon jello Drinks 1.5quart water daily, no etoh intake Pt has multiple scattered bruises and abrasions on BL arms and poor dental hygiene with caked dental plaque evident on lower front teeth. Pt has chronic venous stasis on BLE, purple, with 2+ pitting edema to lower legs. Pts weight hx inconsistent in charts. Admit electrolytes: sodium 117 L, potassium 2.0 L, chloride 71 L with chart review showing multiple admissions throughout the year for electrolyte derangement with hyponatremia. RD Impression: Pt has multiple barriers in preparing and consuming adequate nutrition: food insecurity, pain + weakness, partial vision loss. Living in trailer with rajwinder limits surface area for safe preparation and storage of food leading pt to rely on easy to consume, single use items, often high sodium and nutrient poor. RD would like to visit c pt spouse when she arrives to glean more information on food routine and possible avenues to support pts nutrition status. Ht: 177.8 cm Wt: 87.1 kg BMI: 27.5 Last BM: 07/23/21 (07/24/21 05:46) MNA: 10 Ej Score: 17 Diet: 07/24/21 Lunch Heart Healthy Diet Diet Modifications: Labs: RBC 4.51 X10^6/uL (4.5-5.9) 07/24/21 03:25 Hgb 14.6 g/dL (13.5-17.5) 07/24/21 03:25 Hct 41.4 % (41-53) 07/24/21 03:25 Creatinine 0.99 mg/dL (0.66-1.25) 07/24/21 03:25 Nutrition Diagnosis: Moderate Malnutrition r/t social/environmental factors aeb pt food insecure living in hoarded home with poor access to food, consuming 2 meals/d mostly ready made, 2+ pitting edema and admit electrolytes deranged (Na 117, K+ 2.0, Cl- 71) Interventions: 1. Plan for resource discussion and education when arrives. EER: 1750kcals (20kcal/kg per overweight), 90g PRO (1g/kg per elder, food insecure c wounds) Monitoring/Evaluations: f/u when arrives Electronically Signed by: Jillian Browning 07/24/21 12:26 Clinical Dietitian [address] [address]
[2021-07-24 12:31] LABS: Carbon Dioxide 39 mmol/L (22-32)
[2021-07-24 12:34] LABS: Sodium 117 mmol/L (137-145)
[2021-07-24 12:35] LABS: Chloride 71 mmol/L (98-107)
[2021-07-24] MEDS: LEVOTHYROXINE 75 MCG TABLET 150 MCG PO (12:37)
[2021-07-24] MEDS: POTASSIUM CHLORIDE 10 MEQ TAB 20 MEQ PO ×2 (12:37→20:14)
[2021-07-24] MEDS: ENOXAPARIN 40 MG/0.4 ML SYRINGE SUBCUT (12:37)
[2021-07-24] MEDS: hydroCHLOROthiazide 25 MG TABLET 12.5 MG PO (12:37)
[2021-07-24] MEDS: PANTOPRAZOLE DR 40 MG TABLET PO (12:38)
[2021-07-24] MEDS: TAMSULOSIN 0.4 MG CAPSULE 0.8 MG PO (12:38)
[2021-07-24] MEDS: SODIUM,POTASSIUM PHOSPHATES PACKET 2 EACH PO (12:39)
[2021-07-24 13:33] LABS: Appearance Urine UA CLEAR; Bilirubin Urine UA NEGATIVE (NEGATIVE); Color Urine UA YELLOW; Glucose Urine UA NEGATIVE (Negative); Ketones Urine UA TRACE (NEGATIVE); Leukocyte Esterase Urine UA TRACE (NEGATIVE); Nitrite Urine UA NEGATIVE (Negative); Occult Blood Urine UA NEGATIVE (Negative); Protein Urine UA TRACE (Negative); Urobilinogen Urine UA 0.2 E.U./dL (0.2); pH Urine UA 6.5 (4.5-8.0)
[2021-07-24 13:39] LABS: UR Morphine/Opiate cutoff 300 Negative (Negative); Ur Creatinine Normal (Normal); Ur Specific Gravity Normal (Normal); Urine Amphetamines Negative (Negative); Urine Barbiturates Negative (Negative); Urine Benzodiazepines Negative (Negative); Urine Cocaine Negative (Negative); Urine MDMA Negative (Negative); Urine Methadone Negative (Negative); Urine Methamphetamines Negative (Negative); Urine Oxycodone Negative (Negative); Urine Phencyclidine Negative (Negative); Urine Tetrahydrocannabinol Negative (Negative); Urine Tricyclic Antidepressant Negative (Negative); Urine pH Normal (Normal)
[2021-07-24 14:03] LABS: RBC Urine 0-1/HPF (0-5/HPF); Squamous Epithelial Cell Urine 0-1 /HPF (0-5/HPF); WBC Urine 1-5/HPF (0-5/HPF)
[2021-07-24 14:05] LABS: Renal Epithelial Cells Urine 0-1/HPF (0-1/HPF)
[2021-07-24 14:06] LABS: Bacteria Urine Few (2-10); Culture Indicated Urine Specimen Cultured
[2021-07-24 15:16] LABS: Sodium Urine Random 17 mmol/L (30-90)
--- NOTE | 2021-07-24 17:56 | CM.DANOTE ---
DCP/Assessment: Reviewed chart. Patient is a 76yr old male admitted to [facility] with abnormal labs/weakness. PCP is Dr. Hoover. Primary payor 1)[employer] ADV. Received verbal referral from provider re: d/c planning. Provider reports that patient has not been able to care for self. Patient resides in mobile home in [place]. Met with patient and spouse explained CM/SOFTWARE ASSET MANAGEMENT ANALYST role. Patient very ROSEBUD and rambles during interview. Spouse in agreement for patient to go to short term SNF if needed for rehabilitation. Therapy evaluations pending. Patient's electrolytes are significantly altered and may take a few days to recover. Spouse works part-time at [employer] in a [place]. Reports from staff indicate patient no eating well, hoarding, and taking too many herb that he purchased at [employer]. Spouse indicates that they ran out of liquid potassium and that she could not afford to fill it. P: Anticipate either SNF or home with HH. Would be helpful to have agency check on living situation. Spouse would like to remain updated. Provider will need to look at alternate to liquid potassium. KJS Discharge Planning/Care Management Advanced directive, confirm from FAMILY Start: 07/24/21 06:00 Freq: Q24H Status: Active Protocol: Document 07/24/21 06:00 MW (Rec: 07/24/21 06:04 MW [id number]) Advance Directive, confirm on record Time 06:00 Person contacted pt Copy received No CM Discharge Assessment Start: 07/24/21 17:50 Freq: Status: Active Protocol: Document 07/24/21 17:50 KJS (Rec: 07/24/21 17:55 [facility] [id number]) Discharge Planning Assessment Assigned Upholstery Estimator DAVIE Kenyon Contact Information Avani Reed (ph# [phone] ) Advance Directives? No Advance Directives on File No History Provided By Patient,Significant Other, Medical Record Prior Living Arrangements Mobile home Household Members spouse Type of transporation used prior to Relies on Others admit Independent with ADL's No: Patient recently falling. Is patient alert and oriented? Yes Needs Assistance With Bathing,Grooming,Meal Prep, Toileting,Managing Medications ,Home Chores / Shopping Comment Patient and spouse reside in mobile home. Provider reports that patient is hoarder and does not take good care of himself. Caregiver for Another No DME Already Rented / Owned FWW / Walker Patient/Family Preference Shelter Facility Comment Pending Comment Spouse and patient agreeable to short SNF stay if patient unable to care for self. Barriers to Discharge Yes Comment Patient indicated that he does live with family members Discharge Plan Shelter Facility Transportation Arrangement Family Referrals Initiated Shelter SNF/HH Preference No SNF list given. Patient is [employer] Medicare and if he qualifies for SNF will need contracted facility. Has Agency SNF been contacted No Whiteboard Updated in Patient Room with Yes name and ext. # of Upholstery Estimator Review Status In Process Next Review Type Continued Stay Review
[2021-07-24] MEDS: GABAPENTIN 300 MG CAPSULE PO (20:14)
[2021-07-24] MEDS: NYSTATIN POWDER 15GM 1 APPLIC TOP (20:14)
[2021-07-24] MEDS: DOCUSATE 100 MG CAPSULE PO (20:14)
[2021-07-24] MEDS: PRAVASTATIN 20 MG TABLET 40 MG PO (20:15)
[2021-07-25] VITALS: BP 123/48; PULSE 88; RESP 16; TEMP 35.7; O2SAT 98
[2021-07-25] MEDS: POTASSIUM CHLORIDE IN WATER 10 MEQ/100 ML PIGGYBACK 100 MEQ IV ×3 (00:34→06:28)
[2021-07-25 02:34] LABS: BUN Creatinine Ratio 14.8 (6-22); Blood Urea Nitrogen 12 mg/dL (9-20); Calcium 8.4 mg/dL (8.4-10.2); Carbon Dioxide 38 mmol/L (22-32); Estimated Glomerular Filt Rate > 60.0 mL/min (>60); Glucose 106 mg/dL (80-110); HEMOLYSIS < 15 (0-50)
[2021-07-25 02:45] LABS: Potassium 2.6 mmol/L (3.4-5.1); Sodium 117 mmol/L (137-145)
[2021-07-25] MEDS: SODIUM CHLORIDE 0.9% 1,000 ML 150 ML IV (02:45)
[2021-07-25 02:46] LABS: Chloride 76 mmol/L (98-107)
[2021-07-25 03:00] VITALS: BP 115/57; PULSE 58; RESP 18; TEMP 36.2; O2SAT 96
[2021-07-25] MEDS: LEVOTHYROXINE 125 MCG TABLET PO (06:28)
[2021-07-25 07:45] VITALS: BP 129/65; PULSE 76; RESP 19; TEMP 36.2; O2SAT 96
[2021-07-25] MEDS: DOCUSATE 100 MG CAPSULE PO ×2 (08:39→20:39)
[2021-07-25] MEDS: NYSTATIN POWDER 15GM 1 APPLIC TOP ×2 (08:39→20:40)
[2021-07-25] MEDS: ENOXAPARIN 40 MG/0.4 ML SYRINGE SUBCUT (08:39)
[2021-07-25] MEDS: POTASSIUM CHLORIDE 10 MEQ TAB 20 MEQ PO (08:40)
[2021-07-25] MEDS: PANTOPRAZOLE DR 40 MG TABLET PO (08:40)
[2021-07-25] MEDS: TAMSULOSIN 0.4 MG CAPSULE 0.8 MG PO (08:40)
--- NOTE | 2021-07-25 08:49 | CM.DPNOTE ---
DCP Note Spoke w/ Dr Padron this morning re DCP- recommendation from therapy team and provider is SNF and patient/spouse agreeable. Medical management continues for at least another 24 hours in an effort to balance electrolytes Requesting that CINTHIA Duke fax [employer] [facility], [facility] and MV, Missael and Regina MACHUCA
--- NOTE | 2021-07-25 08:52 | P.PN_ITS ---
Subjective Subjective Date Patient Seen: 07/25/21 Time Patient Seen: 08:52 Interval history: CC: I cannot sleep in what is not a recliner slept ok last night continuing weakness and generalized pain today appetite ok urine output good Exam Vital Signs (past 8 hours): - 07/25/21 03:00 Temperature 97.2 F L Pulse Rate 58 L Respiratory Rate 18 Blood Pressure 115/57 L Pulse Oximetry 96 Oxygen Delivery Method Room Air Oxygen Flow Rate 0 Const Other: alert fellow laying in bed attempting to figure out what is going on with limited success HENMT Other: hard of hearing and poor of vision Resp Other: moving air well clear to auscultation bilaterally Cardio Other: RRR S1/S2 GI Other: SNTND NBS Back/Spine/Pelvis Other: sacral dressing over sore Extrem Other: moving all extremities Psych Appearance: disheveled Mental Status: other Speech and Movement: speech clear Mood: other Objective Labs Result Diagrams: 07/24/21 03:25 07/25/21 02:10 Labs: Laboratory Results - last 24 hr 07/24/21 07/24/21 07/24/21 11:51 12:30 12:30 Sodium 117 L* Potassium 2.0 L* Chloride 71 L* Carbon Dioxide 39 H BUN 13 Creatinine 0.94 Estimated GFR > 60.0 BUN/Creatinine Ratio 13.8 Glucose 90 Calcium 8.7 Magnesium 1.9 Urine Color Yellow Urine Appearance Clear Urine pH 6.5 Ur Specific [place] 1.010 Urine Protein Trace H Urine Glucose (UA) Negative Urine Ketones Trace H Urine Occult Blood Negative Urine Nitrate Negative Urine Bilirubin Negative Urine Urobilinogen 0.2 Ur Leukocyte Esterase Trace H Urine RBC 0-1/hpf Urine WBC 1-5/hpf Ur Squamous Epith Cells 0-1 /hpf Ur Renal Epithelial Cell 0-1/hpf Urine Bacteria Few (2-10) H Ur Culture Indicated? Specimen cultured Ur Random Sodium U Opiates 300ng/mL cut Negative Ur Oxycodone Screen Negative Urine Methadone Screen Negative Ur Barbiturates Screen Negative U Tricyclic Antidepress Negative Ur Phencyclidine Scrn Negative Ur Amphetamines Screen Negative U Methamphetamines Scrn Negative Ur MDMA Scrn (Ecstasy) Negative U Benzodiazepines Scrn Negative Urine Cocaine Screen Negative U Marijuana (THC) Screen Negative 07/24/21 07/25/21 12:35 02:10 Sodium 117 L* Potassium 2.6 L* Chloride 76 L* Carbon Dioxide 38 H BUN 12 Creatinine 0.81 Estimated GFR > 60.0 BUN/Creatinine Ratio 14.8 Glucose 106 Calcium 8.4 Magnesium 2.0 Urine Color Urine Appearance Urine pH Ur Specific [place] Urine Protein Urine Glucose (UA) Urine Ketones Urine Occult Blood Urine Nitrate Urine Bilirubin Urine Urobilinogen Ur Leukocyte Esterase Urine RBC Urine WBC Ur Squamous Epith Cells Ur Renal Epithelial Cell Urine Bacteria Ur Culture Indicated? Ur Random Sodium 17 L U Opiates 300ng/mL cut Ur Oxycodone Screen Urine Methadone Screen Ur Barbiturates Screen U Tricyclic Antidepress Ur Phencyclidine Scrn Ur Amphetamines Screen U Methamphetamines Scrn Ur MDMA Scrn (Ecstasy) U Benzodiazepines Scrn Urine Cocaine Screen U Marijuana (THC) Screen PFSH Medical History Alcohol abuse Congestive heart failure Depression Esophageal ulceration Essential hypertension GERD (gastroesophageal reflux disease) Hypothyroidism Mixed hyperlipidemia Venous stasis Surgical History Status post appendectomy Social History household members: spouse Smoking Status: Never smoker alcohol intake: never Assessment & Plan Assessment & Plan narrative: #acute severe electrolytic derangement #hyponatremia #hypokalemia with first degree heart block #hypochloremia continue PO and IV K-repletion and laboratory monitor potassium slowly improving urine studies show low sodium; proceeding with volume restriction as possible with K-riders as main source of fluids now pls mix K riders in NS holding lasix PT/OT consulted appreciate input etiology suspect intake irregularities dietary input appreciated #UTI starting abx #new afib episode per laboratory monitor overnight; NSR this morningmay have been artifact. continue electrolyte re-enrangement and laboratory monitor. #BPH with obstruction resume home flomax 0.8 may need straight catheter #hypothyroid TSH 0.1 on intake, med list has 150mcg daily, reducing dose to 125 for now #HTN continue home meds, monitor #skin breakdown, present on admission likely 2/2 immobility padding and mobilization as needed #insomnia melatonin thomas gabapentin 300prn DVT: lovenox code status: full diet: heart healthy MDM: Time Spent With Patient Critical Care time: I spent a total of [] minutes of critical care time on this patient's care today; this time is exclusive of procedural time.
[2021-07-25] MEDS: POTASSIUM CHLORIDE 10 MEQ TAB 40 MEQ PO ×2 (09:00→20:39)
--- NOTE | 2021-07-25 09:40 | CM.DPNOTE ---
Addendum entered by Leilani Beavers 07/25/21 11:17: Both [facility]'s not able to accept patient or [facility]. Leilani Beavers CM Asst. Original Note: Faxed/Emailed referral packet to SNFs: [facility], [facility]. Received conf. Also called and left for February at [facility] to review pt. information. Leilani Beavers CM Asst.
[2021-07-25] MEDS: POTASSIUM CHLORIDE 10 MEQ in SODIUM CHLORIDE 0.9% 100 ML 105 ML IV ×6 (10:12→18:30)
[2021-07-25] MEDS: FLUTICASONE 120 SPRAY/16 GM SPRAY.SUSP NASAL (10:13)
--- NOTE | 2021-07-25 10:35 | PT.IPTN ---
Current Diagnoses Hypo-osmolality and hyponatremia (07/24/21) Hypokalemia (07/24/21) Physical Therapy Treatment Note M2 PT-IP Current Condition Start: 07/24/21 11:13 Freq: NEEDED Status: Active Protocol: Document 07/24/21 10:30 OF (Rec: 07/24/21 11:35 OF [id number]) Physical Therapy Current Condition Current Condition Evaluation Date 07/24/21 Treatment Diagnosis Generalized weakness Onset Date 07/24/21 M3 PT-IP Subjective Start: 07/24/21 11:13 Freq: NEEDED Status: Active Protocol: Document 07/25/21 10:25 OF (Rec: 07/25/21 10:35 OF [id number]) Subjective Physical Therapy Visit Type Type Treatment Note Visit Start Time 10:00 Visit Stop Time 10:25 Total Visit Minutes 25 Number of MARKETING RESEARCHER Visits 0 Therapy Pain Assessment Pain When Pain Assessed During Mobility Pain Present Pain Present Pain Reported Location Generalized Scale Used unable to quantify Pain Behaviors Calling Out,Facial Grimacing, Guarding Pain Management Techniques Distraction,Re-positioning M4 PT-IP Mobility and Gait Start: 07/24/21 11:13 Freq: NEEDED Status: Active Protocol: Document 07/25/21 10:25 OF (Rec: 07/25/21 10:35 OF [id number]) PT-Bed Mobility Assessment Rolling Type of Rolling Roll to Right Level of Assist Maximal Assistance,2 Person Assistance Supine to Sit Supine to Sit Maximum Assistance,2 Person Assistance Sit to Supine Sit to Supine Maximum Assistance,2 Person Assistance Scooting Scooting to Edge of Bed Maximum Assistance Scooting Up and Down in Bed Maximum Assistance PT-Transfer Assessment Comments Mobility Comments sit to stand deferred, per RN pt should maintain bed mobility only until sodium levels improve. Pt continues to be confused, has difficulty hearing and difficulty following instructions for mobility Gait Assessment Comments Gait Comments deferred PT-Balance Assessment Sitting Balance and Reactions Static Sitting Balance Ability Fair Dynamic Sitting Balance Ability Fair M5 PT-IP Objective Assessments Start: 07/24/21 11:13 Freq: NEEDED Status: Active Protocol: Document 07/24/21 10:30 OF (Rec: 07/24/21 11:35 OF [id number]) Orientation Orientation/Cognition Level of Alertness Alert Orientation Name,Age,Birthday,Month,Year, Place,Situation Safety Awareness Decreased Safety Awareness Comments pt is confused, but oriented Gross Range of Motion Lower Extremity ROM Impairments Pt does not tolerate AAROM for knees or ankles due to pain Strength Lower Extremity Strength Assessment Bilaterally Impaired Comments Strength Comments unale to test due to pain, demonstrates weakness bilat Coordination Assessment Gross Coordination Gross Coordination WNL Sensation Assessment Sensation Gross Sensation WNL Light Touch Intact Comments Sensation Comments hypersensitive over bilat LE M6 PT-IP Treatment Start: 07/24/21 11:13 Freq: NEEDED Status: Active Protocol: Document 07/24/21 10:30 OF (Rec: 07/24/21 11:35 OF [id number]) Physical Therapy Treatment Education Education Provided Safety M7 PT-IP Assessment and Plan Start: 07/24/21 11:13 Freq: NEEDED Status: Active Protocol: Document 07/25/21 10:25 OF (Rec: 07/25/21 10:35 OF [id number]) PT Summary Assessment and Plan Potential Rehabilitation Potential Good Status of Condition at Evaluation Evolving Summary Impairments Pain,Strength,Balance, Transfers,Gait,Activity Tolerance Progress Towards Goals Progressing Toward Goals Assessment Summary Jay improves sitting balance today. per RN pt should maintain bed mobility only until sodium levels improve. Pt continues to be confused, has difficulty hearing and difficulty following instructions for mobility Goals Bed Mobility Goal Independent Transfer Goal Independent Gait Goal Independent Gait Distance 25ft Days to Meet Goals 7 Frequency of Treatment Frequency Of Treatment Once a Day Treatment Plan Physical Therapy Treatment Plan Bed Mobility Training,Transfer Training,Gait Training, Therapeutic Exercise,Balance Retraining,Neuromuscular Re-ed Recommendations To Nursing Amount of Assist Needed 2 Person Assist Discharge Recommendations PT Discharge Recommendations Acute Rehab,SNF vs Acute Rehab Transportation Needs at Discharge Wheelchair/Cabulance
--- NOTE | 2021-07-25 10:49 | OT.IP.TRT ---
Current Diagnoses Hypo-osmolality and hyponatremia (07/24/21) Hypokalemia (07/24/21) Occupational Therapy Treatment Note M2 OT-IP Current Condition Start: 07/24/21 13:02 Freq: Status: Active Protocol: Document 07/24/21 10:20 [facility] (Rec: 07/24/21 13:21 [facility] [id number]) Occupational Therapy Current Condition Current Condition Evaluation Date 07/24/21 Treatment Diagnosis Hyponatremia, decreased mobility Diagnosis Onset Date 07/24/21 M3 OT- IP Subjective and Pain Start: 07/24/21 13:02 Freq: Status: Active Protocol: Document 07/25/21 12:17 [facility] (Rec: 07/25/21 12:25 [facility] [id number]) OT- Subjective Occupational Therapy Visit Type Type Treatment Note Visit Start Time 10:03 Visit Stop Time 10:49 Total Visit Minutes 46 Occupational Therapy Visit Comments Patient Comments Pt agreed to get up to the edge of the bed. Per nursing due to low sodium and potassium level states okay just to try bed mobility with pt at this time. Patient/Caregiver Goals To get better. OT Pain Assessment Pain When Pain Assessed During Mobility Pain Present Pain Present Pain Reported M4 OT- IP ADL's Start: 07/24/21 13:02 Freq: Status: Active Protocol: Document 07/25/21 12:17 [facility] (Rec: 07/25/21 12:25 [facility] [id number]) OT ADL-Grooming General Evaluation Grooming Ability Standby Assistance Areas Needing Assistance Retrieving/Set-up of Grooming Items Comments OT Grooming Comments Pt able to wash his face while in bed. OT ADL-Oral Care General Eval Oral Care Ability Standby Assistance Areas of Assistance Retrieving/Set-Up of Items Comments Oral Care Comments Pt needing cues to rinse his mouth and spit into the basin. Pt perseverating on brushing his teeth. OT ADL-Dressing General Eval Lower Body Dressing Ability Total Assistance Comments OT Dressing Comments Total assist for socks. OT ADL-Toileting General Evaluation Toileting Ability Minimal Assistance Comments OT Toileting Comments Pt able to use urinal and needing assist for placement of the urinal while in bed at this time. OT ADL-Bathing Comments OT Bathing Comments Sponge bath more appropriate at this time. M6 OT- IP Functional Cognition Start: 07/24/21 13:02 Freq: Status: Active Protocol: Document 07/25/21 12:17 [facility] (Rec: 07/25/21 12:25 [facility] [id number]) Cognitive Factors Limiting Selfcare Function Cognitive Ability Level of Alertness Alert Patient Orientation Name,Place Ability to Follow Commands Able to Follow One Step Commands with Increased Time, Able to Follow One Step Commands with Repetition Cognitive Comments Cognitive Assessment Comments Pt more alert and able to engage in conversation better. Pt states prior held onto items when walking in his trailer and would feel vertigo when up on his feet, buts states was able to care for himself. M7 OT- IP Mobility and Balance Start: 07/24/21 13:02 Freq: Status: Active Protocol: Document 07/25/21 12:17 [facility] (Rec: 07/25/21 12:25 [facility] [id number]) OT- Bed Mobility Assessment Supine to Sit Supine to Sit Assist Maximum Assistance,2 Person Assistance Sit to Supine Sit to Supine Assist Maximum Assistance,2 Person Assistance OT-Transfer Assessment Comments Mobility Comments Per nursing just best to stick with bed mobility with pt at this time. OT- Balance Assessment Sitting Balance and Reactions Static Sitting Balance Ability Fair Comments Other Balance Tests/Deviations/Treatment Pt able to sit at edge of bed : with SBA today able to assist the edge of the bed. M8 OT- IP Objective Assessments Start: 07/24/21 13:02 Freq: Status: Active Protocol: Document 07/24/21 10:20 [facility] (Rec: 07/24/21 13:21 [facility] [id number]) OT Gross Range of Motion Upper Extremity Range of Motion ROM Impairments Pt able to use his arm to assist for bed mobility needs. OT Strength Comments Strength Comments BUE strength at least 3-/5 as pt able to assist for bed mobility needs. M9 OT- IP Assessment and Plan Start: 07/24/21 13:02 Freq: Status: Active Protocol: Document 07/25/21 12:17 [facility] (Rec: 07/25/21 12:25 [facility] [id number]) OT Summary Assessment and Plan Potential Rehabilitation Potential Fair Analytic Complexity at Evaluation High Summary OT Impairments Pain,Strength,Balance, Functional Cognition, Functional Mobility,Grooming, Dressing,Toileting,Bathing, Toilet Transfers,Shower Transfers,Activity Tolerance Progress Towards Goals Progressing Toward Goals,Slow Progress due to Pain,Slow Progress due to Medical Issues ,Slow Progress due to Activity Tolerance,Slow Progress due to Cognition Assessment Summary Today pt able to sit at the edge of the bed with SBA after set-up versus needing MODA x1 . Pt also able to participate in grooming needing from the bed today. Pt will still benefit from skilled rehab prior to going home. Goals Dressing Goal Minimal Assistance Toileting Goal Standby Assistance Bathing Goal Minimal Assistance Toilet Transfer Goal Minimal Assistance Shower Transfer Goal Minimal Assistance Days to Meet Goals 30 Frequency of Treatment Frequency Of Treatment Once a Day Treatment Plan OT Treatment Plan ADL Training,Functional Cognition Training,Functional Mobility,Patient/Family Education,Discharge Planning Discharge Recommendations OT Discharge Recommendations SNF Rehab Transportation Needs at Discharge Wheelchair/Cabulance
[2021-07-25] MEDS: SODIUM CHLORIDE 1,000 MG TABLET 2000 MG PO ×3 (11:20→20:40)
[2021-07-25 12:10] LABS: Osmolality Urine 348 mOsmol/kg (.)
[2021-07-25 12:10] LABS: Osmolality, Serum 244 mOsmol/kg (280-301)
[2021-07-25 15:00] VITALS: BP 102/57; PULSE 78; RESP 17; TEMP 36.3; O2SAT 99
[2021-07-25] MEDS: CLINDAMYCIN 600 MG/50 ML PIGGYBACK 50 MG IV (15:51)
--- NOTE | 2021-07-25 15:51 | CM.DPNOTE ---
DCP Note Following [facility] SNFs have been attempted: [facility], [facility], [facility], [facility] - NO Awaiting CB from Missael MACHUCA
[2021-07-25 18:47] LABS: HEMOLYSIS 20 (0-50); Potassium 3.1 mmol/L (3.4-5.1)
[2021-07-25 20:15] VITALS: BP 113/57; PULSE 81; RESP 16; TEMP 36.4; O2SAT 100
[2021-07-25] MEDS: ACETAMINOPHEN 325 MG TABLET 650 MG PO (20:39)
[2021-07-25] MEDS: GABAPENTIN 300 MG CAPSULE PO (20:39)
[2021-07-25] MEDS: PRAVASTATIN 20 MG TABLET 40 MG PO (20:39)
[2021-07-26] MEDS: CLINDAMYCIN 600 MG/50 ML PIGGYBACK 50 MG IV ×4 (00:18→22:48)
[2021-07-26 01:33] VITALS: BP 128/65; PULSE 66; RESP 14; TEMP 36.4; O2SAT 99
[2021-07-26] MEDS: SODIUM CHLORIDE 0.9% 1,000 ML 24 ML IV ×2 (03:02→06:53)
[2021-07-26] MEDS: LEVOTHYROXINE 125 MCG TABLET PO (05:14)
[2021-07-26 05:26] VITALS: BP 123/71; PULSE 66; RESP 20; TEMP 36.2; O2SAT 100
[2021-07-26 05:28] LABS: Hematocrit 33.8 % (41-53); Mean Corpuscular HGB Conc 35.5 % (30-36); Mean Corpuscular Hemoglobin 33.1 PG (26-34); Mean Corpuscular Volume 93.3 fL (80-100); Platelet Count 162 X10^3/uL (150-400); Red Blood Cell Count 3.62 X10^6/uL (4.5-5.9); Red Cell Distribution Width 13.8 % (11.6-14.8); White Blood Cell Count 6.1 X10^3/uL (4.5-11.0)
[2021-07-26 05:36] LABS: BUN Creatinine Ratio 10.6 (6-22); Blood Urea Nitrogen 7 mg/dL (9-20); Calcium 8.7 mg/dL (8.4-10.2); Carbon Dioxide 32 mmol/L (22-32); Chloride 90 mmol/L (98-107); Estimated Glomerular Filt Rate > 60.0 mL/min (>60); Glucose 89 mg/dL (80-110); HEMOLYSIS < 15 (0-50); Sodium 125 mmol/L (137-145)
[2021-07-26 06:51] LABS: Magnesium 2.1 mg/dL (1.6-2.3)
--- NOTE | 2021-07-26 08:29 | P.PN_ITS ---
Subjective Subjective Date Patient Seen: 07/26/21 Time Patient Seen: 08:29 Interval history: CC: I need a proper recliner to sit in Did ok overnight. Electrolytes improving with K-riders and fluid restriction. He reports that he usually drinks over a quart of water a day in an effort to hydrate. He is in the habit of liberally dressing all his meals with as much garlic as possible. 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5 RDW 13.8 Plt Count 162 Sodium 125 L Potassium 3.0 L Chloride 90 L Carbon Dioxide 32 BUN 7 L Creatinine 0.66 Estimated GFR > 60.0 BUN/Creatinine Ratio 10.6 Glucose 89 Serum Osmolality Calcium 8.7 Magnesium 2.1 Urine Osmolality [facility] Medical History Alcohol abuse Congestive heart failure Depression Esophageal ulceration Essential hypertension GERD (gastroesophageal reflux disease) Hypothyroidism Mixed hyperlipidemia Venous stasis Surgical History Status post appendectomy Social History household members: spouse Smoking Status: Never smoker alcohol intake: never Assessment & Plan Assessment & Plan narrative: #acute severe electrolytic derangement #hyponatremia #hypokalemia with first degree heart block #hypochloremia #potomania improving; continue PO and IV K-repletion and monitor car operator potassium two steps forward one steps back profound depletion issue urine studies show low sodium; proceeding with volume restriction as possible with K-riders as main source of fluids now pls mix K riders in NS holding lasix PT/OT consulted appreciate input etiology suspect intake irregularities dietary input appreciated Goal today: continue fluid restriction and mobilize with PT up to chair if possible #UTI continue abx mental status does seem a bit sharper today #new afib episode per monitor car operator yesterday morning, still NSR this morning, suspect artifact.? continue electrolyte re-enrangement and monitor car operator. 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
[2021-07-26 09:00] VITALS: BP 142/117; PULSE 73; RESP 19; TEMP 36.6; O2SAT 100
[2021-07-26] MEDS: PANTOPRAZOLE DR 40 MG TABLET PO (09:51)
[2021-07-26] MEDS: FLUTICASONE 120 SPRAY/16 GM SPRAY.SUSP NASAL (09:51)
[2021-07-26] MEDS: ENOXAPARIN 40 MG/0.4 ML SYRINGE SUBCUT (09:51)
[2021-07-26] MEDS: DOCUSATE 100 MG CAPSULE PO ×2 (09:51→20:56)
[2021-07-26] MEDS: TAMSULOSIN 0.4 MG CAPSULE 0.8 MG PO (09:52)
[2021-07-26] MEDS: SODIUM CHLORIDE 1,000 MG TABLET 2000 MG PO ×3 (09:52→21:01)
[2021-07-26] MEDS: NYSTATIN POWDER 15GM 1 APPLIC TOP ×3 (09:54→20:58)
[2021-07-26] MEDS: POTASSIUM CHLORIDE 10 MEQ TAB 40 MEQ PO ×2 (09:56→20:56)
--- NOTE | 2021-07-26 10:06 | CM.DPNOTE ---
Addendum entered by Leilani Beavers 07/26/21 10:18: MEDICAID TRANSPORT: Call and spoke to Luci at [employer] and pt. is in system with his Medicaid number. But his previous address shows [place]. She said he needs to calll [facility] and update his new address to [place] and close out [place] address. [facility] # he needs to call [phone]. Leilani Beavers CM Asst. Original Note: Faxed referral packet to [facility], [facility], [facility], [facility], at [facility]'s request. Received fax conf. Leilani Beavers CM Asst.
--- NOTE | 2021-07-26 10:55 | PT.IPTN ---
Current Diagnoses Hypo-osmolality and hyponatremia (07/24/21) Hypokalemia (07/24/21) Physical Therapy Treatment Note M2 PT-IP Current Condition Start: 07/24/21 11:13 Freq: NEEDED Status: Active Protocol: Document 07/26/21 10:24 SP (Rec: 07/26/21 13:19 SP [id number]) Physical Therapy Current Condition Current Condition Evaluation Date 07/24/21 Treatment Diagnosis Generalized weakness Onset Date 07/24/21 M3 PT-IP Subjective Start: 07/24/21 11:13 Freq: NEEDED Status: Active Protocol: Document 07/26/21 10:24 SP (Rec: 07/26/21 13:19 SP [id number]) Subjective Physical Therapy Visit Type Type Treatment Note Visit Start Time 10:24 Visit Stop Time 10:55 Total Visit Minutes 31 Notes KB Lyon provided 2nd person assist and assisted in education needed throughout tx , supervised by AMALIA Guerra. Number of SOCIAL SERVICE COORDINATOR Visits 1 Physical Therapy Visit Comments Patient Comments Pt agreeable to working with therapy. Pt directs care details. Therapy Pain Assessment Pain When Pain Assessed During Mobility Pain Present Pain Present Pain Reported Location Generalized Scale Used not quanitified low back pain during bed mob. Pain Behaviors Facial Grimacing,Guarding, Moaning,Wincing Pain Management Techniques Distraction,Modification of Treatment,Re-positioning M4 PT-IP Mobility and Gait Start: 07/24/21 11:13 Freq: NEEDED Status: Active Protocol: Document 07/26/21 10:24 SP (Rec: 07/26/21 13:19 SP [id number]) PT-Bed Mobility Assessment Rolling Type of Rolling Log Rolling,Roll to Left Level of Assist Maximal Assistance,1 Person Assistance Supine to Sit Supine to Sit Maximum Assistance,2 Person Assistance Scooting Scooting to Edge of Bed Maximum Assistance PT-Transfer Assessment Sit to and From Stand Sit to and from Stand Moderate Assistance,2 Person Assistance,Use of Upper Extremities Equipment Transfer Assistive Device Gait Belt,Front Wheeled Walker Orthotic/Prosthetic Devices or Brace: No Transfers Transfer Destination Chair Transfer Technique Stand Step Pivot Transfer Ability Level of Assist Minimal Assistance,2 Person Assistance,Use of Upper Extremities Comments Mobility Comments Pt supine in bed when arrived. Nurse entered stated improved Sodium levels 125L and encouraged pt in mobility with therapy. Cued pt BLE repositioning to EOB, LR L Max A x1 with use of bed rail, L SL>sit Max A x2 for trunk righting and scoot to EOB w/ use transfer pad. Once at EOB able to sit with BUE support CGA. Sit>stand Mod A x2 cues for pushing 1 UE from bed then FWW. SPT to chair, pt asked that be on L side of bed due to being able to see out L eye and talking into R ear best, Min-Mod A x2 with support and directioning for FWW repositioning and centering front chair then [place] cues for reaching back Min Ax21 slow descent to chair. Pt had call light and all needs in reach. Pt requested support to be reclined and removal of socks and undraped due to feet very warm. SOCIAL SERVICE COORDINATOR deferred to nursing for further in room requests. SOCIAL SERVICE COORDINATOR notified nursing assist required, recommend a chair alarm for safety fall risk and transfers only due to not consistant in mobility, 2 person. Gait Assessment Gait Gait Assistance Required: Moderate Assistance,2 Person Assist Distance (Feet) 2 Able to Maintain Weight Bearing Status Yes During Gait Assistive Devices Assistive Device Gait Belt,Front Wheeled Walker Orthotic/Prosthetic Devices or Brace: No Gait Deviations General Gait Pattern Decreased Stride Length, Decreased Feet Clearance, Flexed Trunk,Wide Based Gait Factors Limiting Gait Function Factors Limiting Gait Function Decreased Activity Tolerance, Decreased Strength,Difficulty Following Directions, Incoordination,Pain,Poor Balance,Poor Safety Awareness Comments Gait Comments see mobility comments. Stair Climbing Assessment Comments Stair Climbing Comments Uncertain if pt has stairs, not appropriate to assess at this time. PT-Balance Assessment Sitting Balance and Reactions Static Sitting Balance Ability Fair Dynamic Sitting Balance Ability Fair Standing Balance and Reactions Static Standing Balance Ability Poor Dynamic Standing Balance Ability Poor Device Used FWW M5 PT-IP Objective Assessments Start: 07/24/21 11:13 Freq: NEEDED Status: Active Protocol: Document 07/24/21 10:30 OF (Rec: 07/24/21 11:35 OF [id number]) Orientation Orientation/Cognition Level of Alertness Alert Orientation Name,Age,Birthday,Month,Year, Place,Situation Safety Awareness Decreased Safety Awareness Comments pt is confused, but oriented Gross Range of Motion Lower Extremity ROM Impairments Pt does not tolerate AAROM for knees or ankles due to pain Strength Lower Extremity Strength Assessment Bilaterally Impaired Comments Strength Comments unale to test due to pain, demonstrates weakness bilat Coordination Assessment Gross Coordination Gross Coordination WNL Sensation Assessment Sensation Gross Sensation WNL Light Touch Intact Comments Sensation Comments hypersensitive over bilat LE M6 PT-IP Treatment Start: 07/24/21 11:13 Freq: NEEDED Status: Active Protocol: Document 07/26/21 10:24 SP (Rec: 07/26/21 13:19 SP [id number]) Physical Therapy Treatment Education Education Provided Safety M7 PT-IP Assessment and Plan Start: 07/24/21 11:13 Freq: NEEDED Status: Active Protocol: Document 07/26/21 10:24 SP (Rec: 07/26/21 13:19 SP [id number]) PT Summary Assessment and Plan Potential Rehabilitation Potential Good Status of Condition at Evaluation Evolving Summary Impairments Pain,Strength,Balance, Transfers,Gait,Activity Tolerance Progress Towards Goals Progressing Toward Goals,Slow Progress due to Pain,Slow Progress due to Activity Tolerance Assessment Summary Pt requires Max A x2 for bed mob, Mod A x2 using FWW for transfers. Unable progress gait due to decrease strenghth and activity tolerance. Pt will require SNF or 2 person home assist 20/04 HHPT recommending at [place]. Will continue to assess progress. Goals Bed Mobility Goal Independent Transfer Goal Independent Gait Goal Independent Gait Distance 25ft Days to Meet Goals 7 Frequency of Treatment Frequency Of Treatment Once a Day Treatment Plan Physical Therapy Treatment Plan Bed Mobility Training,Transfer Training,Gait Training, Therapeutic Exercise,Balance Retraining,Neuromuscular Re-ed Other Recommendations and Next Treatment bed mob, transfers, gait, Focus stairs if able tolerate. Weight Bearing Status Weight Bearing Status Weight Bear as Tolerated Recommendations To Nursing Amount of Assist Needed 2 Person Assist Discharge Recommendations PT Discharge Recommendations Home with 20/04 Assist Available,Home Health,SNF Rehab,Home vs SNF Other Discharge Recommendations 2 person assist if going home 20/04. Transportation Needs at Discharge Private Vehicle,Wheelchair/ Cabulance
--- NOTE | 2021-07-26 11:25 | OT.IP.TRT ---
Current Diagnoses Hypo-osmolality and hyponatremia (07/24/21) Hypokalemia (07/24/21) Occupational Therapy Treatment Note M2 OT-IP Current Condition Start: 07/24/21 13:02 Freq: Status: Active Protocol: Document 07/24/21 10:20 [facility] (Rec: 07/24/21 13:21 [facility] [id number]) Occupational Therapy Current Condition Current Condition Evaluation Date 07/24/21 Treatment Diagnosis Hyponatremia, decreased mobility Diagnosis Onset Date 07/24/21 M3 OT- IP Subjective and Pain Start: 07/24/21 13:02 Freq: Status: Active Protocol: Document 07/26/21 11:33 [facility] (Rec: 07/26/21 11:42 [facility] [id number]) OT- Subjective Occupational Therapy Visit Type Type Treatment Note Visit Start Time 10:57 Visit Stop Time 11:25 Total Visit Minutes 28 Occupational Therapy Visit Comments Patient Comments Pt agreed to do cognitive assessment. 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 Patient/Caregiver Goals to go home OT Pain Assessment Pain When Pain Assessed At Rest Pain Present Pain Present Denied Pain M4 OT- IP ADL's Start: 07/24/21 13:02 Freq: Status: Active Protocol: M6 OT- IP Functional Cognition Start: 07/24/21 13:02 Freq: Status: Active Protocol: Document 07/26/21 11:33 [facility] (Rec: 07/26/21 11:42 [facility] [id number]) Cognitive Factors Limiting Selfcare Function Cognitive Ability Level of Alertness Alert Patient Orientation Name,Place Attention Span Ability Capable of Focused Attention, Capable of Sustained Attention Ability to Follow Commands Able to Follow One Step Commands Memory Description Short Term Impaired Safety Awareness Underestimates Need for Assistance Problem Solving Ability Needs Assist to Identify Solutions Cognitive Tests SLUMS Pt has an 8th grade education. Pt scored 19/30 which a normal score for pt would be 25/30 for his level of education. However pt's low sodium number may also be affecting his cognitive abilities. Pt not able to subtract 100-23, unable to states 4 digit number backwards, not able to draw number of the clock correctly or time given, and able to answer 2/4 questions right after time passed. Cognitive Comments Cognitive Assessment Comments Pt alert and able to participate in SLUMS. Pt not able to recall initially to call 911 in case of an emergency, and not knowing what to do if the toilet flood or just to let his know if he runs out of medications. M9 OT- IP Assessment and Plan Start: 07/24/21 13:02 Freq: Status: Active Protocol: Document 07/26/21 11:33 [facility] (Rec: 07/26/21 11:42 [facility] [id number]) OT Summary Assessment and Plan Summary OT Impairments Pain,Strength,Balance, Functional Cognition, Functional Mobility,Grooming, Dressing,Toileting,Bathing, Toilet Transfers,Shower Transfers,Activity Tolerance Progress Towards Goals Progressing Toward Goals,Slow Progress due to Pain,Slow Progress due to Medical Issues ,Slow Progress due to Activity Tolerance,Slow Progress due to Cognition Assessment Summary Pt cognition improving but still needing simple concrete commands. Pt did say that he was lonely and wanting to talk to a male that was unbiased in opinions, pt's nurse notified. Pt would benefit from skilled rehab prior to going home. Goals Dressing Goal Minimal Assistance Toileting Goal Standby Assistance Bathing Goal Minimal Assistance Toilet Transfer Goal Minimal Assistance Shower Transfer Goal Minimal Assistance Days to Meet Goals 25 Frequency of Treatment Frequency Of Treatment Once a Day Treatment Plan OT Treatment Plan ADL Training,Functional Cognition Training,Functional Mobility,Patient/Family Education,Discharge Planning Other Treatment Recommendations and Next LB dressing MODA Treatment Focus Discharge Recommendations OT Discharge Recommendations SNF Rehab Transportation Needs at Discharge Wheelchair/Cabulance
--- NOTE | 2021-07-26 14:47 | CM.DPNOTE ---
Addendum entered by DAVIE Pham 07/26/21 14:48: ADD: Received request from [employer] Driver Татьяна to explore option for Meals on Wheels upon [place]. Reviewed initial guard entrance registrar note done by Jillian Browning. Placed call to spouse Avani, rang, rang and hung up. Attempted x2. Patient extremely [id number]. Will attempt conversation w/patient re: arranging meals on wheels. Will also continue to reach Avani or speak with her at bedside to review this resource option and discuss DCP efforts thus far. JW Original Note: DCP Note [facility] unable to accept JW
[2021-07-26] MEDS: ACETAMINOPHEN 325 MG TABLET 650 MG PO (14:55)
[2021-07-26 15:50] VITALS: BP 124/45; PULSE 71; RESP 18; TEMP 35.9; O2SAT 96
[2021-07-26 20:30] VITALS: BP 120/50; PULSE 70; RESP 18; TEMP 36.4; O2SAT 96
[2021-07-26] MEDS: PRAVASTATIN 20 MG TABLET 40 MG PO (20:56)
[2021-07-26] MEDS: MELATONIN 3 MG TABLET 9 MG PO (20:56)
[2021-07-26] MEDS: GABAPENTIN 300 MG CAPSULE PO (20:56)
[2021-07-27] VITALS (7 sets, daily range): BP systolic 111–137; BP diastolic 53–84; PULSE 67–110; RESP 18–20; TEMP 36.1–37.2; O2SAT 95–100
[2021-07-27] MEDS: ACETAMINOPHEN 325 MG TABLET 650 MG PO (00:07)
[2021-07-27] MEDS: HYDROCODONE/ACET 5/325 TABLET 1 TAB PO (02:59)
[2021-07-27 05:19] LABS: Hematocrit 35.3 % (41-53); Hemoglobin 12.2 g/dL (13.5-17.5); Mean Corpuscular HGB Conc 34.4 % (30-36); Mean Corpuscular Hemoglobin 32.8 PG (26-34); Mean Corpuscular Volume 95.3 fL (80-100); Platelet Count 155 X10^3/uL (150-400); White Blood Cell Count 5.9 X10^3/uL (4.5-11.0)
[2021-07-27 05:28] LABS: BUN Creatinine Ratio 13.4 (6-22); Blood Urea Nitrogen 9 mg/dL (9-20); Calcium 8.8 mg/dL (8.4-10.2); Carbon Dioxide 29 mmol/L (22-32); Chloride 96 mmol/L (98-107); Estimated Glomerular Filt Rate > 60.0 mL/min (>60); Glucose 83 mg/dL (80-110); HEMOLYSIS 19 (0-50); Potassium 3.6 mmol/L (3.4-5.1); Sodium 128 mmol/L (137-145)
[2021-07-27] MEDS: LEVOTHYROXINE 125 MCG TABLET PO (06:11)
[2021-07-27] MEDS: CLINDAMYCIN 600 MG/50 ML PIGGYBACK 50 MG IV ×3 (06:55→22:17)
[2021-07-27] MEDS: ENOXAPARIN 40 MG/0.4 ML SYRINGE SUBCUT (09:48)
[2021-07-27] MEDS: TAMSULOSIN 0.4 MG CAPSULE 0.8 MG PO (09:48)
[2021-07-27] MEDS: DOCUSATE 100 MG CAPSULE PO ×2 (09:48→21:33)
[2021-07-27] MEDS: PANTOPRAZOLE DR 40 MG TABLET PO (09:49)
[2021-07-27] MEDS: POTASSIUM CHLORIDE 10 MEQ TAB 40 MEQ PO ×2 (09:49→21:33)
[2021-07-27] MEDS: SODIUM CHLORIDE 1,000 MG TABLET 2000 MG PO ×3 (09:49→21:41)
[2021-07-27] MEDS: NYSTATIN POWDER 15GM 1 APPLIC TOP ×2 (09:50→21:34)
[2021-07-27] MEDS: FLUTICASONE 120 SPRAY/16 GM SPRAY.SUSP NASAL (09:52)
--- NOTE | 2021-07-27 10:07 | PT.IPTN ---
Current Diagnoses Hypo-osmolality and hyponatremia (07/24/21) Hypokalemia (07/24/21) Weakness (07/24/21) Physical Therapy Treatment Note M2 PT-IP Current Condition Start: 07/24/21 11:13 Freq: NEEDED Status: Active Protocol: Document 07/27/21 09:30 SP (Rec: 07/27/21 14:39 SP [id number]) Physical Therapy Current Condition Current Condition Evaluation Date 07/24/21 Treatment Diagnosis Generalized weakness Onset Date 07/24/21 M3 PT-IP Subjective Start: 07/24/21 11:13 Freq: NEEDED Status: Active Protocol: Document 07/27/21 09:30 SP (Rec: 07/27/21 14:39 SP [id number]) Subjective Physical Therapy Visit Type Type Treatment Note Visit Start Time 09:29 Visit Stop Time 10:07 Total Visit Minutes 38 Notes SUPERINTENDENT CIRCUS provided 2nd person assist initially required. Number of FUEL CELL DESIGNER Visits 2 Physical Therapy Visit Comments Patient Comments Pt agreeable to working with therapy. Therapy Pain Assessment Pain When Pain Assessed During Mobility Pain Present Pain Present Pain Reported Location Generalized Intensity 9 Scale Used Numeric (0 - 10) Description Aching Pain Management Techniques Distraction,Modification of Treatment,Re-positioning M4 PT-IP Mobility and Gait Start: 07/24/21 11:13 Freq: NEEDED Status: Active Protocol: Document 07/27/21 09:30 SP (Rec: 07/27/21 14:39 SP [id number]) PT-Bed Mobility Assessment Supine to Sit Supine to Sit Moderate Assistance,2 Person Assistance,Head of Bed Elevated,Bedrails Scooting Scooting to Edge of Bed Moderate Assistance PT-Transfer Assessment Sit to and From Stand Sit to and from Stand Minimal Assistance,Moderate Assistance,2 Person Assistance ,Use of Upper Extremities Equipment Transfer Assistive Device Gait Belt,Front Wheeled Walker Orthotic/Prosthetic Devices or Brace: No Transfers Transfer Destination Chair,Toilet Transfer Technique pt ambulated using FWW Transfer Ability Level of Assist Moderate Assistance,1 Person Assistance,Use of Upper Extremities Comments Mobility Comments Pt was completing elevated supine>sit with 2 CNAs when arrived. FUEL CELL DESIGNER took over 2nd person assist when arrived. Pt requires Mod A x2 for trunk support for righting from behind, able to repostion BLE self with cues and scoot to EOB Mod A x1-2 w use of transfer pad. Sit unsupported EOB SBA. Sit>stand Mod A x2 initially using fWW, cues to push from bed. SPT bed>chair w / FWW Min A x2 (therapist managed IV pole), cues for body spacial postioning due to not able to see out of R eye . Min A x2 with [place] cues for reaching back and slow descent into chair. Pt rested in chair few minutes, requested use of bathroom. Sit>stand Mod A x1 good push from chair arms, progressed gait around end of bed and into bathroom 20 ft CG- 5% A, therapist also managed IV pole while intermittently followed with room chair. Cued for upright posture. SPT using FWW cues for spacial awareness front toilet fully backing up, use of grab bar on R Downward press on FWW onL, Min A slow descent to toilet. Pt was unable to void/ BM. Sit>stand Min A w/ grab bar and FWW, ambulated back to other side of room 20 ft CGA- 5%A using FWW with support of IV pole and follow w/ chair . Pt sat back in chair Min A using BUE support. Pt reported very tired, noted SOB, see vital above. Pt had call light and all needs in reach, physican arrived and was in room before left. FUEL CELL DESIGNER notified nurse recommended donning chair alarm and stated she would return to complete. Gait Assessment Gait Gait Assistance Required: Moderate Assistance,2 Person Assist Distance (Feet) 20 Able to Maintain Weight Bearing Status Yes During Gait Assistive Devices Assistive Device Gait Belt,Front Wheeled Walker Orthotic/Prosthetic Devices or Brace: No Gait Deviations General Gait Pattern Decreased Stride Length, Decreased Feet Clearance, Flexed Trunk,Wide Based Gait Factors Limiting Gait Function Factors Limiting Gait Function Decreased Activity Tolerance, Decreased Strength,Difficulty Following Directions, Incoordination,Pain,Poor Balance,Poor Safety Awareness, Respiratory Distress Comments Gait Comments see mobiltiy comments Stair Climbing Assessment Comments Stair Climbing Comments Pt states has ramp, not needed to assess stairs. PT-Balance Assessment Sitting Balance and Reactions Static Sitting Balance Ability Fair Dynamic Sitting Balance Ability Fair Standing Balance and Reactions Static Standing Balance Ability Fair Dynamic Standing Balance Ability Fair Device Used FWW M5 PT-IP Objective Assessments Start: 07/24/21 11:13 Freq: NEEDED Status: Active Protocol: Document 07/24/21 10:30 OF (Rec: 07/24/21 11:35 OF [id number]) Orientation Orientation/Cognition Level of Alertness Alert Orientation Name,Age,Birthday,Month,Year, Place,Situation Safety Awareness Decreased Safety Awareness Comments pt is confused, but oriented Gross Range of Motion Lower Extremity ROM Impairments Pt does not tolerate AAROM for knees or ankles due to pain Strength Lower Extremity Strength Assessment Bilaterally Impaired Comments Strength Comments unale to test due to pain, demonstrates weakness bilat Coordination Assessment Gross Coordination Gross Coordination WNL Sensation Assessment Sensation Gross Sensation WNL Light Touch Intact Comments Sensation Comments hypersensitive over bilat LE M6 PT-IP Treatment Start: 07/24/21 11:13 Freq: NEEDED Status: Active Protocol: Document 07/27/21 09:30 SP (Rec: 07/27/21 14:39 SP [id number]) Physical Therapy Treatment Education Education Provided Safety Other Treatments Other Treatment Performed Education on breath and rests for decreased SOB and energy conservation. M7 PT-IP Assessment and Plan Start: 07/24/21 11:13 Freq: NEEDED Status: Active Protocol: Document 07/27/21 09:30 SP (Rec: 07/27/21 14:39 SP [id number]) PT Summary Assessment and Plan Potential Rehabilitation Potential Good Status of Condition at Evaluation Evolving Summary Impairments Pain,Strength,Balance, Transfers,Gait,Activity Tolerance Progress Towards Goals Progressing Toward Goals,Slow Progress due to Pain,Slow Progress due to Activity Tolerance Assessment Summary Pt requires Mod A x2 for bed mob, Mod A x1 for transfers, CG- Min A for gait using FWW. Recommending SNF vs 24/7 assist available for improving strength toward functional independence in mobility. If pt is returing home, will need to set up caregiver training if appropriate. Goals Bed Mobility Goal Independent Transfer Goal Independent Gait Goal Independent Gait Distance 25ft Days to Meet Goals 7 Frequency of Treatment Frequency Of Treatment Once a Day Treatment Plan Physical Therapy Treatment Plan Bed Mobility Training,Transfer Training,Gait Training, Therapeutic Exercise,Balance Retraining,Neuromuscular Re-ed Other Recommendations and Next Treatment bed mob, transfers, gait. Focus Recommendations To Nursing Amount of Assist Needed 2 Person Assist Discharge Recommendations PT Discharge Recommendations Home with 24/7 Assist Available,Home Health,SNF Rehab,Home vs SNF Other Discharge Recommendations 1-2 person assist if going home 24/7. Transportation Needs at Discharge Private Vehicle,Wheelchair/ Cabulance
--- NOTE | 2021-07-27 10:24 | PM.PN.1 ---
Subjective Subjective Date Patient Seen: 07/27/21 Time Patient Seen: 10:24 Interval history: CC: When can I drink some water? Patient doing well on fluid restriction with now today normal K levels for first time this admission. Na and Cl still lagging behind slowly but improving. Cognition and motor function seem to be improving today he is able to get to the bathroom and sit in the chair. We were able to have an extensive discussion today regarding the inadvisability of heedless hydration and he verbalized agreement with the core concept although was prone to tangents regarding supplements and dietary additives. Exam Vital Signs (past 8 hours): - 07/27/21 03:30 07/27/21 09:00 Temperature 97.9 F 98.9 F Pulse Rate 68 110 H Respiratory Rate 18 18 Blood Pressure 137/80 114/84 Pulse Oximetry 99 96 Oxygen Delivery Method Room Air Oxygen Flow Rate 0 Narrative Exam Narrative: alert chap sitting up in chair Const General: cooperative, healthy appearing and comfortable Resp Other: clear to auscultation bilaterally Cardio Other: RRR S1/S2 GI Other: soft nontender normal bowel sounds Neuro Other: poor hearing and vision otherwise CN 2-12 grossly intact. Extrem Other: moving all extremities, strength grossly 5/5 Psych Speech and Movement: speech clear Mood: congruent mood Affect: normal affect Attitude: cooperative Thought Process: perseverating and tangential Judgment: fair Objective Labs Result Diagrams: 07/27/21 04:58 07/27/21 04:58 Labs: Laboratory Results - last 24 hr 07/27/21 07/27/21 04:58 04:58 WBC 5.9 RBC 3.70 L Hgb 12.2 L Hct 35.3 L MCV 95.3 MCH 32.8 MCHC 34.4 RDW 14.0 Plt Count 155 Sodium 128 L Potassium 3.6 Chloride 96 L Carbon Dioxide 29 BUN 9 Creatinine 0.67 Estimated GFR > 60.0 BUN/Creatinine Ratio 13.4 Glucose 83 Calcium 8.8 [facility] Medical History Alcohol abuse Congestive heart failure Depression Esophageal ulceration Essential hypertension GERD (gastroesophageal reflux disease) Hypothyroidism Mixed hyperlipidemia Venous stasis Surgical History Status post appendectomy Social History household members: spouse Smoking Status: Never smoker alcohol intake: never Assessment & Plan Assessment & Plan narrative: #acute severe electrolytic derangement #hyponatremia #hypokalemia with first degree heart block, resolved #hypochloremia #potomania Much improved today, potassium within normal, Na and Cl coming around slowly Extensive conversation with pt regarding potomania will continue to emphasize this PT/OT consulted appreciate input mobility improving etiology suspect intake irregularities dietary input appreciated continue fluid restriction #UTI continue abx #new afib episode per reports, NSR today, suspect artifact.? continue electrolyte re-enrangement and monitoring and evaluation advisor. 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
[2021-07-27] MEDS: IBUPROFEN 600 MG TABLET PO (12:11)
--- NOTE | 2021-07-27 12:56 | CM.DPC ---
DCP Note FOOD AND DRUG INSPECTOR calls Blanca at [facility] and discusses HH referral for patient. FOOD AND DRUG INSPECTOR endorses that it is unknown when patient will be d/c'd to home. Blanca endorses that she will need to f/u with patient's insurance company to see if [employer] covers HH. FOOD AND DRUG INSPECTOR faxes clinicals and F2F to [facility] for review. DAVIE Mcbride
[2021-07-27] MEDS: DICLOFENAC 1% GEL 100 GM 1 APPLIC TOP ×2 (13:23→21:34)
--- NOTE | 2021-07-27 13:28 | OT.IPNOTE ---
Pt was just assisted by nursing to get back to bed and pt too tired to do any OT today.
--- NOTE | 2021-07-27 14:58 | CM.DPNOTE ---
DCP Note No SNF secured on patient's behalf at this time. Met w/patient this morning, Dr Padron present for this visit temporarily. Patient is mostly blind. He uses a voice amplifier that one must talk into (on a necklace around his neck) in order for patient to understand what is being said. PT continues to recommend SNF Had lengthy conversation w/patient, discussed DCP efforts. Patient is not interested in going to SNF. Will entertain HH because it'll break the day up. No agency preference. Patient declines meals on wheels because he won't eat the meals, states he only eats at 5:30 and 11 at night, and use to eat only once daily. Patient states his biggest request would be for someone to talk to; this [employer] suggested that patient have a friend or family member drive him to the [facility] for meals (?) Patient states that's impractical. Patient's son Antony lives in a trailer next to patient/spouse's, and Antony supposedly gets up at 4 pm daily. Patient does not report Antony as a support for assist or transport. Enriqueta Short, [employer] helping w/ HH referral, patient has no agency pref. [facility] reportedly needs to check patient's [employer] [facility] coverage before accepting this referral. This [employer] unable to connect w/spouse Avani, either by phone or in person. Patient states Avani gets off work in the afternoons. Plan: DC home is expected, when patient is medically cleared and can self transfer to the ; pt would benefit from HH if [employer] [facility] will cover, patient has declined additional resources at this time. CM team will plan to continue to follow closely for coordination of the DCP that patient/spouse agree to. BRIGETTE
[2021-07-27] MEDS: MELATONIN 3 MG TABLET 9 MG PO (21:33)
[2021-07-27] MEDS: GABAPENTIN 300 MG CAPSULE PO (21:33)
[2021-07-27] MEDS: PRAVASTATIN 20 MG TABLET 40 MG PO (21:33)
[2021-07-28] MEDS: IBUPROFEN 600 MG TABLET PO (01:28)
--- NOTE | 2021-07-28 03:08 | PC.NURSE ---
Patient is alert and oriented. Has poor vision and is extremely [place] JOLLA despite hearing aid device. Breath sounds CTA with RA sat of 100%. Denies nausea. BT hyperactive and abdomen is soft; has not had a BM since 07/23 but is on Colace BID. Has not voided since 1800 and has been known to have retention and placed on flomax; will monitor and straight cath if not able to void as per MD order. Patient states he is on a fluid restriction so he isn't getting enough liquids to urinate. Is able to adjust himself in bed and refuses to reposition onto sides. Did complain of 8/10 lower back pain and stated Tylenol never helps. Dr Padron contacted and order received for a 1x dose of Ibuprofen and MD okayed use of acupunture pad that patient has been requesting staff place behind his back. Allevyn dressings to bilateral elbows are CDI. Wearing bilateral calf SCD's. Fall risk score is high and bed alarm is activated.
[2021-07-28 03:15] VITALS: BP 130/61; PULSE 87; RESP 18; TEMP 36.4; O2SAT 100
[2021-07-28 05:33] LABS: Hematocrit 34.6 % (41-53); Hemoglobin 11.8 g/dL (13.5-17.5); Mean Corpuscular HGB Conc 34.2 % (30-36); Mean Corpuscular Hemoglobin 32.9 PG (26-34); Mean Corpuscular Volume 96.2 fL (80-100); Platelet Count 159 X10^3/uL (150-400); Red Blood Cell Count 3.59 X10^6/uL (4.5-5.9); Red Cell Distribution Width 14.1 % (11.6-14.8); White Blood Cell Count 5.8 X10^3/uL (4.5-11.0)
[2021-07-28 05:54] LABS: BUN Creatinine Ratio 13.1 (6-22); Blood Urea Nitrogen 11 mg/dL (9-20); Carbon Dioxide 25 mmol/L (22-32); Chloride 100 mmol/L (98-107); Estimated Glomerular Filt Rate > 60.0 mL/min (>60); Glucose 93 mg/dL (80-110); HEMOLYSIS < 15 (0-50); Potassium 4.2 mmol/L (3.4-5.1); Sodium 129 mmol/L (137-145)
[2021-07-28] MEDS: CLINDAMYCIN 600 MG/50 ML PIGGYBACK 50 MG IV (06:43)
[2021-07-28] MEDS: LEVOTHYROXINE 125 MCG TABLET PO (06:43)
[2021-07-28] MEDS: SODIUM CHLORIDE 0.9% 1,000 ML 24 ML IV (06:44)
[2021-07-28 08:00] VITALS: BP 141/71; PULSE 66; RESP 16; TEMP 36.4; O2SAT 100
[2021-07-28] MEDS: DOCUSATE 100 MG CAPSULE PO (09:24)
[2021-07-28] MEDS: FLUTICASONE 120 SPRAY/16 GM SPRAY.SUSP NASAL (09:26)
[2021-07-28] MEDS: ENOXAPARIN 40 MG/0.4 ML SYRINGE SUBCUT (09:26)
[2021-07-28] MEDS: NYSTATIN POWDER 15GM 1 APPLIC TOP (09:27)
[2021-07-28] MEDS: SODIUM CHLORIDE 1,000 MG TABLET 2000 MG PO (09:27)
[2021-07-28] MEDS: PANTOPRAZOLE DR 40 MG TABLET PO (09:27)
[2021-07-28] MEDS: POTASSIUM CHLORIDE 10 MEQ TAB 40 MEQ PO (09:27)
[2021-07-28] MEDS: TAMSULOSIN 0.4 MG CAPSULE 0.8 MG PO (09:28)
[2021-07-28] MEDS: DICLOFENAC 1% GEL 100 GM 1 APPLIC TOP (09:29)
--- NOTE | 2021-07-28 10:45 | PM.DS.1 ---
History of Present Illness History of Present Illness Date Patient Seen: 07/28/21 Time Patient Seen: 09:30 Date of Onset of Symptoms: 07/23/21 Chief complaint: generalized pain Narrative: Pt relates tale of progressive mobility issues in home trailer culminating in extended period down yesterday unable to get up so called ambulance. Report from EMS indicated strong hoarding issue with extremely limited space to maneuver. He has mostly been staying in his chair and not getting up or out that much. He reports drinking over a quart of water per day as a matter of course in an attempt to keep his kidneys healthy additionally he has furosemide and hctz on his med list. He reported generalized pain although scans in ED noted only a vertebral compression fracture of indeterminate age. ED bloodwork revealed severely deranged metabolites. He denied feeling ill of late just in pain. Discharge Providers Provider Date of admission: 07/24/21 04:46 Discharge Date: 07/28/21 Primary care physician: Zackary Hoover MD Consults: 07/24/21 05:59 Consult to Dietitian, Adult Routine Comment: Reason For Exam: reports troy baer as his primary intake 07/24/21 09:07 Consult to Occupational Therapy Evaluate & Treat Comment: Physician Instructions: Evaluate and treat Consult to Physical Therapy Evaluate & Treat Comment: Physician Instructions: Evaluate and Treat 07/27/21 12:49 Consult to Home Health Routine Comment: Reason For Exam: referral for RN, PT and aide Discharge provider: Arley Padron MD Summary Hospital Course Discharge Diagnosis: severe hypokalemia severe hyponatremia, chronic severe hypochloremia potomania Hospital Course: Mr. Reed slowly improved with intensive IV repletion of his potassium supply which was extremely low. Due to potomaniacal etiology of his hyponatremia fluids were restricted with the goal of gentle correction of his hyponatremia and hypochloremia which slowly resolved as well. His mobility was initially extremely poor with PT however by DoD he was able to ambulate with some assistance his labs were mostly normal and he felt ready to go home. He was adamantly opposed to any sort of placement and by DoD the nature and cause of his presenting issue did seem to be clearly evident to him and he verbalized understanding of the proposition that he should drink only when healthy. He does seem to have a regimen of home herbs and supplements which may warrant follow up as outpatient to ascertain whether they may be a contributing factor also. Status at Discharge Functional status at discharge: uses cane/walker Overall status at discharge: patient is progressing back to baseline Exam Vital Signs (past 8 hours): - 07/28/21 03:15 07/28/21 08:00 Temperature 97.5 F L 97.6 F Pulse Rate 87 66 Respiratory Rate 18 16 Blood Pressure 130/61 141/71 H Pulse Oximetry 100 100 Oxygen Delivery Method Room Air Oxygen Flow Rate 0 Narrative Exam Narrative: older fellow sitting up in bed eating breakfast Const General: cooperative, healthy appearing and comfortable Resp Other: clear to auscultation bilaterally Cardio Other: RRR S1/S2 GI Other: soft nontender nondistended normal bowel sounds Skin Other: sacral and olecranon patches under soft dressing Neuro Speech: speech normal Other: extremely poor vision and hearing but otherwise probate paralegal 2-12 grossly wnl Extrem Other: lower extremities with hyperpigmentation up to top of sock line, no edema, strength 5/5. strenght good in upper extremities hand vocational rehabilitation consultant 5/5 Psych Mental Status: mental status grossly normal Speech and Movement: speech and movement normal Mood: congruent mood Affect: normal affect Thought Process: tangential Judgment: fair Objective Labs Result Diagrams: 07/28/21 05:18 07/28/21 05:18 Labs: Laboratory Results - last 24 hr 07/28/21 07/28/21 05:18 05:18 WBC 5.8 RBC 3.59 L Hgb 11.8 L Hct 34.6 L MCV 96.2 MCH 32.9 MCHC 34.2 RDW 14.1 Plt Count 159 Sodium 129 L Potassium 4.2 Chloride 100 Carbon Dioxide 25 BUN 11 Creatinine 0.84 Estimated GFR > 60.0 BUN/Creatinine Ratio 13.1 Glucose 93 Calcium 9.0 [facility] Medical History Alcohol abuse Congestive heart failure Depression Esophageal ulceration Essential hypertension GERD (gastroesophageal reflux disease) Hypothyroidism Mixed hyperlipidemia Venous stasis Surgical History Status post appendectomy Social History household members: spouse Smoking Status: Never smoker alcohol intake: never Discharge Assessment & Plan Assessment and Plan Assessment: #acute severe electrolytic derangement #hyponatremia #hypokalemia with first degree heart block, resolved #hypochloremia #potomania Much improved today, potassium and chloride now within normal ranges, Na almost there also Extensive conversation with pt regarding potomania seems to be sinking in halted furosemide and hctz, BP ok, no pedal edema PT/OT consulted appreciate input mobility improving continue fluid restriction at home drink only when thirsty #UTI completed abx no symptoms now #new afib episode per reports over one night, NSR since, suspect artifact.?Not found on 12-lead. continue electrolyte re-enrangement and desk monitor. f/u outpt. #BPH with obstruction increase flomax to 0.8 #hypothyroid TSH 0.1 on intake, med list has 150mcg daily, reducing dose to 125 for now. f/u outpt #HTN continue home meds, monitor #skin breakdown, present on admission likely 2/2 immobility padding and mobilization as needed #L2 compression fracture, age indeterminate found on ED imaging, pt reports he is not in any more back pain currently than usual for him, f/u outpt as needed #insomnia resume home regimen on dc dispo: home with DVT: lovenox code status: full diet: heart healthy restrict fluids unless thirsty MDM: Avani Discharge Plan Discharge Plan Transfer to: Home Health, Other Discharge orders & Medications Discharge Orders: Discharge (Order); Ordered 07/28/21 Ordered By: Arley Padron Prescriptions: New levothyroxine [Synthroid] 125 mcg Tablet 125 mcg PO DAILY@0600 Qty: 30 RF: 0 tamsulosin [Flomax] 0.4 mg Capsule 0.8 mg PO DAILY Qty: 60 RF: 0 Continued pantoprazole 40 mg Tablet,Delayed Release (Dr/Ec) 40 mg PO DAILY Qty: 30 RF: 0 pravastatin 20 mg Tablet 40 mg PO BEDTIME Qty: 30 RF: 0 Discontinued hydrochlorothiazide 25 MG tablet 12.5 mg PO BID Qty: 0 RF: 0 furosemide 20 mg tablet 40 mg PO BID RF: 0 No Action levothyroxine 75 mcg tablet 150 mcg PO DAILY RF: 0 tamsulosin 0.4 mg capsule,extended release 24hr 1 cap PO QHS RF: 0 Follow up/Referrals: Zackary Hoover MD [Primary Care Provider] - Diet/Activity/Treatments Diet: Diet as Tolerated Diet comment: drink water only as needed for thirst [facility] Rehab type: Home health Discharge Data Primary Care Provider: Zackary Hoover
--- NOTE | 2021-07-28 11:08 | CM.DPC ---
DCP Discharge with HH Per , pt is medically stable to d/c home today and agreeable with HH and signed the F2F and then met with pt bedside and discussed his d/c today and pt agreeable still. SELINA called [facility] and confirmed that they are still reviewing his insurance and won't know if they are contracted until tomorrow but if they aren't then they will send the referral to [facility]. Confirmed that they still would like the F2F, orders, and d/c summ faxed today and they have openings and Thu. SELINA faxed F2F, MD orders, and d/c summary to [facility] to review. Plan: Patient to d/c home with new [facility] today to follow after d/c. DAVIE Monteiro
[2021-07-28 12:00] VITALS: BP 136/78; PULSE 66; RESP 16; TEMP 36.6; O2SAT 100
--- NOTE | 2021-07-28 14:15 | PC.NURSE ---
Addendum entered by Sonia Kaminski R.N. 07/28/21 14:48: Patient to resume holistic bowel regimen, refusing any NH alternatives. Will follow up with Dr. Hoover if further interventions needed. Voiding without any difficulty. 250 ml this shift. Original Note: Discharge note: Discharge instructions given to patient and spouse Avani, discussed importance of new medication changes and their adherence. Discussed importance of F/U with Dr. Hoover this week, water restriction, home safety, and signs of worsening symptoms. Both verbalized understanding of instructions. Home with home health arranged, via private vehicle, accompanied by spouse.
== END 2021-07-28 14:51 | disposition home health service (06) | DRG 641 ==
LOC: ED 04:16 → AC 04:49
PROVIDERS: Family Medicine; Admitting Provider Student in an Organized Health Care Education/Training Program; Emergency Provider Emergency Medicine; PCP Family Medicine; Referring Provider Emergency Medicine; Visit Provider Student in an Organized Health Care Education/Training Program
DX: E87.6 Hypokalemia (principal); N13.8 Other obstructive and reflux uropathy; N39.0 Urinary tract infection, site not specified; M48.56XA Collapsed vertebra, not elsewhere classified, lumbar region, initial encounter for fracture; E87.1 Hypo-osmolality and hyponatremia; I11.0 Hypertensive heart disease with heart failure; I50.9 Heart failure, unspecified; E87.8 Other disorders of electrolyte and fluid balance, not elsewhere classified; I48.91 Unspecified atrial fibrillation; N40.1 Benign prostatic hyperplasia with lower urinary tract symptoms; Z59.41 Food insecurity; I44.0 Atrioventricular block, first degree; E03.9 Hypothyroidism, unspecified; G47.00 Insomnia, unspecified; K21.9 Gastro-esophageal reflux disease without esophagitis; E78.2 Mixed hyperlipidemia; Z20.822 Contact with and (suspected) exposure to COVID-19
CPT/HCPCS: 36415; 72072; 72100; 72170; 80048; 80076; 80305; 80320; 80329; 81001; 82009; 82550; 82553; 83690; 83735; 83930; 83935; 84100; 84132; 84300; 84443; 84484; 85025; 85027; 87077; 87086; 87147; 87635; 93005; 96365; 96375; 97116; 97129; 97130; 97161; 97166; 97530; 97535; 99284; C9803; G0480; J1650; J1885; J3480

== ENCOUNTER → 2021-09-16 15:34 | Outpatient (ROUT) | payer OTHER, SELFPAY ==
[2021-07-24 05:46] VITALS: BMI 27.5
[2021-09-16 15:54] LABS: Add Manual Diff / Slide Review NO; Basophils Absolute Auto 100 /uL (0-100); Basophils Percent Auto 0.7 % (0-2); Eosinophils Absolute Auto 200 /uL (0-450); Hematocrit 39.2 % (41-53); Hemoglobin 13.4 g/dL (13.5-17.5); Lymphocytes Absolute Auto 2000 /uL (1100-4500); Lymphocytes Percent Auto 27.4 % (25-40); Mean Corpuscular HGB Conc 34.2 % (30-36); Mean Corpuscular Hemoglobin 33.2 PG (26-34); Mean Corpuscular Volume 97.1 fL (80-100); Monocytes Absolute Auto 600 /uL (0-900); Monocytes Percent Auto 8.2 % (3-14); Neutrophils Absolute Auto 4300 /uL (1500-7000); Neutrophils Percent Auto 60.7 % (50-75); Platelet Count 173 X10^3/uL (150-400); Red Blood Cell Count 4.04 X10^6/uL (4.5-5.9); Red Cell Distribution Width 12.6 % (11.6-14.8); White Blood Cell Count 7.2 X10^3/uL (4.5-11.0)
[2021-09-16 16:39] LABS: Thyroid Stimulating Hormone 5.96 uIU/mL (0.47-4.68)
[2021-09-16 23:27] LABS: Alanine Aminotransferase 17 IU/L (<50); Albumin 3.7 g/dL (3.5-5.0); Albumin Globulin Ratio 1.4 (1.0-2.8); Alkaline Phosphatase 112 U/L (38-126); Aspartate Aminotransferase 49 IU/L (17-59); BUN Creatinine Ratio 8.1 (6-22); Bilirubin Total 0.9 mg/dL (0.2-1.3); Blood Urea Nitrogen 7 mg/dL (9-20); Calcium 9.4 mg/dL (8.4-10.2); Carbon Dioxide 26 mmol/L (22-32); Chloride 102 mmol/L (98-107); Cholesterol 187 mg/dL (140-199); Estimated Glomerular Filt Rate > 60.0 mL/min (>60); Globulin 2.7 g/dL (1.7-4.1); Glucose 103 mg/dL (80-110); HDL Cholesterol 90 mg/dL (40-60); LDL Cholesterol Calculated 87 mg/dL (<100); Sodium 136 mmol/L (137-145); Total Protein 6.4 g/dL (6.3-8.2); Triglycerides 51 mg/dL (35-150); VLDL Cholesterol Calculated 10 mg/dL (2-30)
[2021-09-16 23:34] LABS: HEMOLYSIS 84 (0-50)
[2021-09-16 23:35] LABS: Potassium 3.7 mmol/L (3.4-5.1)
== END ==
PROVIDERS: PCP Family Medicine; Visit Provider Family Medicine
DX: E87.6 Hypokalemia (principal); E87.1 Hypo-osmolality and hyponatremia; N40.1 Benign prostatic hyperplasia with lower urinary tract symptoms
CPT/HCPCS: 80053; 80061; 84443; 85025

== ENCOUNTER → 2021-10-18 16:08 | Outpatient (ROUT) | payer OTHER, SELFPAY ==
[2021-07-24 05:46] VITALS: BMI 27.5
[2021-10-18 16:13] LABS: Add Manual Diff / Slide Review NO; Basophils Absolute Auto 0 /uL (0-100); Basophils Percent Auto 0.9 % (0-2); Eosinophils Absolute Auto 200 /uL (0-450); Eosinophils Percent Auto 2.9 % (2-4); Hematocrit 38.2 % (41-53); Hemoglobin 12.8 g/dL (13.5-17.5); Lymphocytes Absolute Auto 1200 /uL (1100-4500); Lymphocytes Percent Auto 21.7 % (25-40); Mean Corpuscular HGB Conc 33.5 % (30-36); Mean Corpuscular Volume 92.5 fL (80-100); Monocytes Absolute Auto 400 /uL (0-900); Monocytes Percent Auto 7.5 % (3-14); Neutrophils Absolute Auto 3700 /uL (1500-7000); Platelet Count 160 X10^3/uL (150-400); Red Blood Cell Count 4.13 X10^6/uL (4.5-5.9); Red Cell Distribution Width 12.2 % (11.6-14.8); White Blood Cell Count 5.6 X10^3/uL (4.5-11.0)
[2021-10-18 16:34] LABS: Alanine Aminotransferase 26 IU/L (<50); Albumin 3.6 g/dL (3.5-5.0); Albumin Globulin Ratio 1.6 (1.0-2.8); Alkaline Phosphatase 93 U/L (38-126); Aspartate Aminotransferase 34 IU/L (17-59); BUN Creatinine Ratio 9.7 (6-22); Bilirubin Total 0.6 mg/dL (0.2-1.3); Blood Urea Nitrogen 9 mg/dL (9-20); Calcium 9.5 mg/dL (8.4-10.2); Carbon Dioxide 32 mmol/L (22-32); Chloride 99 mmol/L (98-107); Estimated Glomerular Filt Rate > 60.0 mL/min (>60); Globulin 2.3 g/dL (1.7-4.1); Glucose 103 mg/dL (80-110); HEMOLYSIS 24 (0-50); Potassium 3.9 mmol/L (3.4-5.1); Sodium 133 mmol/L (137-145); Total Protein 5.9 g/dL (6.3-8.2)
[2021-10-18 17:05] LABS: Thyroid Stimulating Hormone 2.62 uIU/mL (0.47-4.68)
== END ==
PROVIDERS: PCP Family Medicine; Visit Provider Family Medicine
DX: E87.1 Hypo-osmolality and hyponatremia (principal); I10 Essential (primary) hypertension; E87.6 Hypokalemia; E03.9 Hypothyroidism, unspecified
CPT/HCPCS: 80053; 84443; 85025

== ENCOUNTER 2021-10-25 14:07 | Inpatient (IN) | payer OTHER, SELFPAY ==
[2021-07-24 05:46] VITALS: BMI 27.5
[2021-10-25] VITALS (12 sets, daily range): BP systolic 119–165; BP diastolic 81–99; PULSE 119–136; RESP 17–23; TEMP 36.2; O2SAT 97–100; BMI 32.6
--- NOTE | 2021-10-25 14:19 | DI.RAD.S_ITS ---
PROCEDURE: XR CHEST 1V INDICATIONS: chf TECHNIQUE: One view of the chest was acquired. COMPARISON: None. FINDINGS: Surgical changes and devices: None. Lungs and pleura: Increased interstitial markings with cephalization of pulmonary vasculature. No pleural effusions or pneumothorax. Mediastinum: Mediastinal contours appear normal. Heart size is enlarged. Bones and chest wall: No suspicious bony lesions. Overlying soft tissues appear unremarkable. IMPRESSION: Cardiomegaly with mild to moderate pulmonary edema. Dictated by: Venancio Yeh M.D. on 10/25/2021 at 14:46 Approved by: Venancio Yeh M.D. on 10/25/2021 at 14:46
--- NOTE | 2021-10-25 14:21 | ED_ITS ---
HPI - Chest Pain <Mike Medina PA-C - Last Filed: 10/25/21 15:19> General Chief Complaint: Shortness of Breath/Dyspnea Stated Complaint: Fluid retention Time Seen by Provider: 10/25/21 14:10 History of Present Illness HPI narrative: Patient is a pleasant 76-year-old male who came in via EMS from home. EMS reports that the home health nurse noticed abnormal vital signs with elevated heart rate and increased shortness of breath and felt like patient to be ruiz sported to be evaluated. Patient reports that he has had increased fluid retention over the last couple weeks of which his primary has increased his Lasix to 3 times a day. He reports to have a history of congestive heart failure. He denies any chest pain his shortness of breath has been ongoing and patient reports that it has been progressively getting worse over the past 2 weeks. His respiratory distress continues despite even resting and he is speaking 3-4 word sentences and tachypneic at rest. Patient was able to move himself from the EMS stretcher to the ED stretcher. He also reports that he lives at home alone has a home health nurse that comes and checks on him daily and his son lives next to him that provides his meals for him. He denies any snacking in between and reports that he eats 2 meals a day based on his son being available to make him meals. He also reports having concerns with fungal infections in the past of which he has been treating with topical powder. He believes it to be fungal in nature. No reported fever cough nausea vomiting diarrhea. He does have pedal edema in both legs that is wrapped with Coban. Patient is also hard of hearing and has a hearing aid that he wears. Related Data Previous Rx's Medication Instructions Recorded pantoprazole 40 mg tablet,delayed 40 mg PO DAILY #30 tab 03/03/21 release pravastatin 20 mg tablet 40 mg PO BEDTIME #30 tab 03/03/21 levothyroxine 125 mcg tablet 125 mcg PO DAILY@0600 #30 tab 07/28/21 (Synthroid) tamsulosin 0.4 mg capsule (Flomax) 0.8 mg PO DAILY #60 cap 07/28/21 Allergies Allergy/AdvReac Type Severity Reaction Status Date / Time Penicillins [PENICILLINS] AdvReac Severe IT PIERCE Verified 02/16/18 00:58 LIKE MAD NOTHING DIGESTS Review of Systems <Mike Medina PA-C - Last Filed: 10/25/21 15:19> Review of Systems ROS Unobtainable: All systems reviewed & are unremarkable except as noted in HPI and below Constitutional Constitutional: Denies chills, Reports fatigue, Denies fever(s), Denies frequent falls, Denies lethargy and Denies weakness Eyes Eyes: Denies change in vision, Denies eye discharge, Denies irritation and Denies loss of vision ENT Ears, Nose, Mouth, and Throat: Denies change in voice, Denies dizziness, Denies neck pain, Denies sore throat and Denies throat swelling Cardiovascular Cardiovascular: Denies chest pain, Reports rapid heart rate, Denies irregular heart rhythm, Reports leg edema, Denies lightheadedness, Denies palpitations, Reports dyspnea, Reports dyspnea on exertion and Denies orthopnea Respiratory Respiratory: Denies cough, Reports dyspnea, Reports dyspnea on exertion and Denies wheezing Gastrointestinal Gastrointestinal: Denies abdominal pain, Denies change in bowel habits, Denies diarrhea, Denies nausea and Denies vomiting Genitourinary Genitourinary: Denies hematuria, Denies flank pain, Denies urinary incontinence and Denies urinary urgency Musculoskeletal Musculoskeletal: Denies back pain, Denies muscle weakness, Denies neck pain, Denies numbness and Denies tingling Integumentary/Breasts Skin/Breast: Denies pruritus, Denies erythema, Denies rash and Denies wounds Neurologic Neurologic: Denies behavioral changes, Denies confusion, Denies dizziness, Denies frequent falls, Denies loss of vision, Denies numbness, Denies tingling and Denies weakness Psychiatric Psychiatric: Denies anxiety, Denies behavioral changes, Denies confusion, Denies depression, Denies homicidal ideation and Denies suicidal ideation Endocrine Endocrine: Reports fatigue, Denies flushing and Denies palpitations Hematologic/Lymphatic Hematologic/Lymphatic: Denies easy bruising Allergic/Immunologic Allergic/Immunologic: Denies urticaria, Denies throat swelling and Denies wheezing Patient History <Mike Medina PA-C - Last Filed: 10/25/21 15:19> Medical History Alcohol abuse Congestive heart failure Depression Esophageal ulceration Essential hypertension GERD (gastroesophageal reflux disease) Hypothyroidism Mixed hyperlipidemia Venous stasis Surgical History Status post appendectomy Social History household members: spouse Smoking Status: Never smoker alcohol intake: never Smoking Status: Never smoker alcohol intake frequency: 0-2 drinks per day Substance Use Type: does not use Exam <Mike Medina PA-C - Last Filed: 10/25/21 15:19> Initial Vital Signs Initial Vital Signs: Vital Signs Pulse Rate 132 H 10/25/21 14:13 Respiratory Rate 23 10/25/21 14:13 Pulse Oximetry 97 10/25/21 14:13 Const General: cooperative, frail appearing and ill appearing Nutritional Appearance: obese and edematous Orientation: Orientation Limitations: other limitations (Hearing) [facility] Head: normal to inspection, normocephalic and atraumatic Ears: hearing grossly normal bilaterally, external ears normal and TM's normal bilaterally Nose: external nose normal, nares normal and nasal mucous membranes and turbinates normal Face and sinus: normal facial exam Eyes General: appearance normal, both eyes and all related structures Pupils: PERRL EOM: EOM intact bilaterally Resp Effort & Inspection: abnormal respiratory pattern, respiratory distress and tachypneic Auscultation: crackles on the left at the base Cardio Rate: tachycardic Rhythm: regular rhythm GI Inspection: distended and obesity Auscultation: normal bowel sounds Course <Mike Medina PA-C - Last Filed: 10/25/21 15:19> Orders Ordered: ED Orders 10/25/21 14:10 BNP [NT-proBNP (BNP-Adult 18+)] Stat CBC Auto Diff [Complete Blood Count AUTO DIFF] Stat CMP [Comprehensive Metabolic Panel] Stat PT [Prothrombin Time INR] Stat PTT [Partial Thromboplastin Time] Stat Troponin & CK Cardiac Panel Stat 10/25/21 14:19 CXR [XR chest 1V] Stat UA Complete [Urinalysis and Microscopic] Stat EKG-12 Lead Stat 10/25/21 14:20 COVID19 -Nasal swab/Pre-Proc Stat Acetaminophen (Acetaminophen 325 Mg Tablet) 650 mg PO Q6HR PRN PRN Reason: Fever/Mild Pain (1-3) Al Hydrox/Mg Hydrox/Simethicone (Mag Hydrox/Alum/Simeth 30 Ml Udc) 30 ml PO Q6HR PRN PRN Reason: Dyspepsia Atorvastatin Calcium (Atorvastatin 20 Mg Tablet) 20 mg PO BEDTIME EVARISTO Docusate Sodium (Docusate 100 Mg Capsule) 100 mg PO BID [facility] Furosemide (Furosemide 40 Mg/4 Ml Vial) 40 mg IV DAILY [facility] Heparin Sodium (Porcine) (Heparin 5,000 Unit/Ml Vial) 5,000 unit SUBCUT BID [facility] Levothyroxine Sodium (Levothyroxine 125 Mcg Tablet) 125 mcg PO DAILY@0600 [facility] Lisinopril (Lisinopril 5 Mg Tablet) 5 mg PO DAILY [facility] Magnesium Hydroxide (Magnesium Hydroxide 30 Ml Udc) 30 ml PO DAILY PRN PRN Reason: Constipation Metoprolol Tartrate (Metoprolol Ir 25 Mg Tablet) 25 mg PO BID [facility] Naloxone HCl (Naloxone 0.4 Mg/Ml Vial) 0.2 mg IV Q2MIN PRN PRN Reason: Opiate Reversal Ondansetron HCl (Ondansetron 4 Mg/2 Ml Inj) 4 mg IV Q8HR PRN PRN Reason: Nausea And Vomiting Discontinued Medications Metoprolol Tartrate (Metoprolol Ir 25 Mg Tablet) 25 mg PO BID [facility] Metoprolol Tartrate (Metoprolol Ir 25 Mg Tablet) 25 mg PO NOW ONE Stop: 10/25/21 18:23 Last Admin: 10/25/21 18:25 Dose: 25 mg Documented by: PRUDENCIO Melton Consultation #1: Spoke with Dr. Cota the hospitalist on duty about admitting him. He was agreeable and will admit the patient for continued treatment for his pulmonary edema. Vital Signs Vital signs: Vital Signs - 8 hr 10/25/21 14:13 10/25/21 14:14 10/25/21 14:16 Temperature 97.2 F L Pulse Rate 132 H 132 H 130 H Respiratory Rate 23 18 Blood Pressure 132/99 H 132/99 H Pulse Oximetry 97 98 99 10/25/21 14:30 10/25/21 15:00 Temperature Pulse Rate 136 H 132 H Respiratory Rate 23 20 Blood Pressure 148/96 H 131/92 H Pulse Oximetry 99 99 MDM - Chest Pain <Mike Medina PA-C - Last Filed: 10/25/21 15:19> Differential Diagnosis Differential diagnosis: Likely unstable angina pectoris and chest pain Lab Data Result diagrams: 10/25/21 14:10 10/25/21 14:10 Labs: Lab Results 10/25/21 10/25/21 10/25/21 Range/Units 14:10 14:10 14:10 WBC 6.5 (4.5-11.0) X10^3/uL RBC 4.33 L (4.5-5.9) X10^6/uL Hgb 13.2 L (13.5-17.5) g/dL Hct 39.4 L (41-53) % MCV 91.1 (80-100) fL MCH 30.4 (26-34) PG MCHC 33.4 (30-36) % RDW 12.6 (11.6-14.8) % Plt Count 184 (150-400) X10^3/uL Neut % (Auto) 65.4 (50-75) % Lymph % (Auto) 24.6 L (25-40) % [place] % (Auto) 7.2 (3-14) % Eos % (Auto) 2.0 (2-4) % Baso % (Auto) 0.8 (0-2) % Neut # (Auto) 4300 (2058-8772) /uL Lymph # (Auto) 1600 (3366-5025) /uL [place] # (Auto) 500 (0-900) /uL Eos # (Auto) 100 (0-450) /uL Baso # (Auto) 100 (0-100) /uL PT 12.2 (10.1-12.7) SECONDS INR 1.1 (0.9-1.3) APTT 36 (26.4-36.2) SECONDS Sodium 134 L (137-145) mmol/L Potassium 3.4 (3.4-5.1) mmol/L Chloride 97 L (98-107) mmol/L Carbon Dioxide 31 (22-32) mmol/L BUN 9 (9-20) mg/dL Creatinine 1.06 (0.66-1.25) mg/dL Estimated GFR > 60.0 (>60) mL/min BUN/Creatinine Ratio 8.5 (6-22) Glucose 108 (80-110) mg/dL Calcium 9.5 (8.4-10.2) mg/dL Total Bilirubin 0.7 (0.2-1.3) mg/dL AST 31 (17-59) IU/L ALT 24 (<50) IU/L Alkaline Phosphatase 121 (38-126) U/L Total Creatine Kinase 59 (55-170) U/L CK-MB (CK-2) TNP CK-MB (CK-2) Rel Index TNP Troponin I < 0.012 (0.01-0.034) ng/mL NT-Pro-B Natriuret Pep 3440 H (<450) pg/mL Total Protein 6.8 (6.3-8.2) g/dL Albumin 4.0 (3.5-5.0) g/dL Globulin 2.8 (1.7-4.1) g/dL Albumin/Globulin Ratio 1.4 (1.0-2.8) SARS-CoV-2 (PCR) (Negative) 10/25/21 Range/Units 14:20 WBC (4.5-11.0) X10^3/uL RBC (4.5-5.9) X10^6/uL Hgb (13.5-17.5) g/dL Hct (41-53) % MCV (80-100) fL MCH (26-34) PG MCHC (30-36) % RDW (11.6-14.8) % Plt Count (150-400) X10^3/uL Neut % (Auto) (50-75) % Lymph % (Auto) (25-40) % [place] % (Auto) (3-14) % Eos % (Auto) (2-4) % Baso % (Auto) (0-2) % Neut # (Auto) (1152-9868) /uL Lymph # (Auto) (7905-6897) /uL [place] # (Auto) (0-900) /uL Eos # (Auto) (0-450) /uL Baso # (Auto) (0-100) /uL PT (10.1-12.7) SECONDS INR (0.9-1.3) APTT (26.4-36.2) SECONDS Sodium (137-145) mmol/L Potassium (3.4-5.1) mmol/L Chloride (98-107) mmol/L Carbon Dioxide (22-32) mmol/L BUN (9-20) mg/dL Creatinine (0.66-1.25) mg/dL Estimated GFR (>60) mL/min BUN/Creatinine Ratio (6-22) Glucose (80-110) mg/dL Calcium (8.4-10.2) mg/dL Total Bilirubin (0.2-1.3) mg/dL AST (17-59) IU/L ALT (<50) IU/L Alkaline Phosphatase (38-126) U/L Total Creatine Kinase (55-170) U/L CK-MB (CK-2) CK-MB (CK-2) Rel Index Troponin I (0.01-0.034) ng/mL NT-Pro-B Natriuret Pep (<450) pg/mL Total Protein (6.3-8.2) g/dL Albumin (3.5-5.0) g/dL Globulin (1.7-4.1) g/dL Albumin/Globulin Ratio (1.0-2.8) SARS-CoV-2 (PCR) Negative (Negative) ECG Data Attestation: I personally reviewed and interpreted this ECG as follows: Prior ECG tracings: not available for review Interpretation: Sinus tachycardia at 131 beats per minute MDM Narrative Medical decision making narrative: Patient was seen in the ED for complaints of shortness of breath. He was tachypneic had wet lung sounds in the bases and reports that he had a excessive amounts of fluid that needed to be taken off. His PCP increased his Lasix his home health nurse was concerned about his abnormal vital signs and his heart rate was elevated. After full workup in it was determined that he has been excessive amount of fluid with associated pulmonary edema. Patient will be admitted to the floor for continued treatment and diuresis. Discharge Plan Departure Patient Disposition: Admitted As Inpatient Clinical Impression: Congestive heart failure, Dyspnea, Hyponatremia Admit Date/Time: 10/25/21 15:23 Admit Provider: Geovanni Collins
[2021-10-25 14:27] LABS: Add Manual Diff / Slide Review NO; Basophils Absolute Auto 100 /uL (0-100); Basophils Percent Auto 0.8 % (0-2); Eosinophils Absolute Auto 100 /uL (0-450); Hematocrit 39.4 % (41-53); Hemoglobin 13.2 g/dL (13.5-17.5); Lymphocytes Absolute Auto 1600 /uL (1100-4500); Lymphocytes Percent Auto 24.6 % (25-40); Mean Corpuscular HGB Conc 33.4 % (30-36); Mean Corpuscular Hemoglobin 30.4 PG (26-34); Mean Corpuscular Volume 91.1 fL (80-100); Monocytes Absolute Auto 500 /uL (0-900); Monocytes Percent Auto 7.2 % (3-14); Neutrophils Absolute Auto 4300 /uL (1500-7000); Neutrophils Percent Auto 65.4 % (50-75); Platelet Count 184 X10^3/uL (150-400); Red Blood Cell Count 4.33 X10^6/uL (4.5-5.9); Red Cell Distribution Width 12.6 % (11.6-14.8); White Blood Cell Count 6.5 X10^3/uL (4.5-11.0)
[2021-10-25 14:35] LABS: INR 1.1 (0.9-1.3); Prothrombin Time 12.2 SECONDS (10.1-12.7)
[2021-10-25 14:38] LABS: PTT Partial Thromboplastin Tim 36 SECONDS (26.4-36.2)
[2021-10-25 14:39] LABS: Alanine Aminotransferase 24 IU/L (<50); Albumin Globulin Ratio 1.4 (1.0-2.8); Alkaline Phosphatase 121 U/L (38-126); Aspartate Aminotransferase 31 IU/L (17-59); BUN Creatinine Ratio 8.5 (6-22); Bilirubin Total 0.7 mg/dL (0.2-1.3); Blood Urea Nitrogen 9 mg/dL (9-20); Calcium 9.5 mg/dL (8.4-10.2); Carbon Dioxide 31 mmol/L (22-32); Chloride 97 mmol/L (98-107); Creatine Kinase 59 U/L (55-170); Estimated Glomerular Filt Rate > 60.0 mL/min (>60); Globulin 2.8 g/dL (1.7-4.1); Glucose 108 mg/dL (80-110); HEMOLYSIS < 15 (0-50); Potassium 3.4 mmol/L (3.4-5.1); Sodium 134 mmol/L (137-145); Total Protein 6.8 g/dL (6.3-8.2)
[2021-10-25 14:51] LABS: NT-proBNP (BNP-Adult 18+) 3440 pg/mL (<450); Troponin I < 0.012 ng/mL (0.01-0.034)
[2021-10-25 14:55] LABS: COVID19 -Nasal RAPID Negative (Negative)
--- NOTE | 2021-10-25 15:47 | DI.ECHO.S_ITS ---
[facility]+ : : [address] : : : : [id number] : : : : Phone: [phone] Echocardiogram Report + + :Name: SHI POON Study Date: 10/25/2021 Height: 71 in : :[facility] ReadingLocation: Weight: 240 lb : : Gender: Male BSA: 2.3 m2 : :: 1945 Age: 76 yrs BP: 151/94 mmHg: :Reason For Study: CHF, LE edema : :Ordering Physician: STEPHANIE, : :STEVIE Performed By: Aydin Valdez : :Referring: STEVIE BROWN : + + Interpretation Summary 1) Mildly increased let ventricular thickness wiht normal size and moderately reduced systolic function (EF about 35%). 2) Normal right ventricular size with mildly reduced function. 3) There is mild to moderate tricuspid regurgitation. 4) The right ventricular systolic pressure is estimated to be at least 39 mmHg based on an estimated right atrial pressure of 15 mm Hg. 5) Atrial flutter/fib with rapid ventricular response during the study. 6) Compared to the Echo done 06/11/2018, LVEF has dropped significantly from 60-65% to 35% on this study. Procedure: A two-dimensional transthoracic echocardiogram with color flow and Doppler was performed. The study quality was technically difficult. Comparison is made with the echocardiogram of 06/11/2018. Patient supine, sitting up and had low pain tolerance. The patient was in sinus tachycardia with heart rates between 117 - 133 bpm during the exam. Left Ventricle: The left ventricle is normal in size. There is mild concentric left ventricular hypertrophy. Left ventricular ejection fraction is estimated to be 35 +/- 5%. There is moderate global hypokinesis of the left ventricle. Diastolic function could not be accurately assessed due to tachycardia. Right Ventricle: The right ventricle is normal size. Right ventricular systolic function is mildly reduced. Atria: The left atrium is moderately dilated. The right atrium is mild to moderately dilated. There is no Doppler evidence for an interatrial shunt. Mitral Valve: There is mild to moderate mitral annular calcification. The mitral valve leaflets appear mildly thickened, but open well. There is mild mitral regurgitation. Aortic Valve: The aortic valve is trileaflet. The aortic valve opens well. There is reduced mobility of the RCC. The aortic valve is mildly calcified. There is no aortic valve stenosis. There is mild aortic regurgitation. Tricuspid Valve: The tricuspid valve is normal. There is mild to moderate tricuspid regurgitation. The right ventricular systolic pressure is estimated to be at least 39 mmHg based on an estimated right atrial pressure of 15 mm Hg. Pulmonic Valve: The pulmonic valve is not well seen, but is grossly normal. There is a trace or physiologic amount of pulmonic regurgitation. Great Vessels: The aortic root is normal size. The ascending aorta is mildly enlarged. The aortic arch could not be visualized. The IVC is dilated (diameter is greater than 2.1 cm) and it collapses less than 50% with a sniff. This suggests a high right atrial pressure of 15 mm Hg. Pericardium/ Pleura There is no pericardial effusion. There is an anterior echo-free space consistent with a fat pad. There is no pleural effusion. MMode/2D Measurements & Calculations LVIDd: 4.5 cm LVOT diam: 2.0 cm LVIDs: 3.2 cm Ao root diam: 3.2 cm FS: 29.2 % asc Aorta Diam: 3.9 cm IVSd: 1.1 cm LVPWd: 1.3 cm LV tapia. diameter/BSA (cm/m^2): 2.0 LV sys. diameter/BSA (cm/m^2): 1.4 LA A2 area: 24.5 cm2 RA long axis: 5.4 cm LA A4 area: 29.1 cm2 RA area: 20.1 cm2 LA length (vol): 6.6 cm RA vol: 63.6 ml LA vol: 92.1 ml RA : 27.9 ml/m2 LA vol index: 40.4 ml/m2 IVC diam: 3.0 cm TAPSE: 1.6 cm Doppler Measurements & Calculations Ao V2 max: 133.8 cm/sec LVOT Max Pete: 82.4 cm/sec Ao V2 mean: 100.6 cm/sec LV V1 max P.7 mmHg Ao max P.2 mmHg LV V1 VTI: 12.7 cm Ao mean P.3 mmHg DAGOBERTO(I,D): 2.1 cm2 Ao V2 VTI: 19.9 cm DAGOBERTO(V,D): 2.0 cm2 sev ratio: 0.64 DAGOBERTO indexed to BSA (cm^2/m^2): 0.90 MV E max pete: 158.3 cm/sec TR max pete: 243.5 cm/sec TR max P.8 mmHg SV(LVOT): 40.9 ml Reading Physician:05:13 PM
--- NOTE | 2021-10-25 17:17 | P.HP_ITS ---
History of Present Illness History of Present Illness Chief complaint: Fluid retention Narrative: Patient is a 76-year-old male with history of chronic lower extremity edema, congestive heart failure, hypertension who presents on admission with increased shortness of breath. Patient states his problem back to 3 weeks prior to admission. At that time he began experiencing increasing shortness of breath with activity. patient lives in a 40 ft trailer states that he gets around in his trailer by using a homemade walking stick and holding on to objects in his trailer. He has noticed that he becomes short of breath with less activity in that this has become progressively worse. He states he sleeps in a 0 level chair and not a bed. He sleeps up right. As a result he does not notice orthopnea but when asked if lying flat leads to increased shortness of breath and he said that it does. He has bilateral lower extremity edema he states that the edema has not recently increased. Both lower extremities are dressed/bandaged because of his bull eye from the edema. He has a home health nurse to comes 3 times a week for wound care and changing his dressings as a result of his breathing problems the home health nurse when visiting him today advised him to come to the ED. in the ED chest x-ray revealed interstitial edema BNP was elevated at 3440. he is therefore being admitted for acute on cheonic congestive heart failure Patient History Medical History Alcohol abuse Congestive heart failure Depression Esophageal ulceration Essential hypertension GERD (gastroesophageal reflux disease) Hypothyroidism Mixed hyperlipidemia Venous stasis Surgical History Status post appendectomy Family & Social History Social History: household members spouse Safety & Behavioral: Feels Safe in Current Yes Environment Been Physically Hurt or No Threatened By a Person Tobacco & Substance use: Smoking Status Never smoker alcohol intake never alcohol intake frequency 0-2 drinks per day Substance Use Type does not use Meds Home Medications and Allergies Home Medications Medication Instructions Recorded Confirmed Type pantoprazole 40 mg tablet,delayed 40 mg PO DAILY #30 tab 03/03/21 07/24/21 Rx release pravastatin 20 mg tablet 40 mg PO BEDTIME #30 tab 03/03/21 07/24/21 Rx levothyroxine 125 mcg tablet 125 mcg PO DAILY@0600 #30 tab 07/28/21 Rx (Synthroid) tamsulosin 0.4 mg capsule (Flomax) 0.8 mg PO DAILY #60 cap 07/28/21 Rx Allergies Allergy/AdvReac Type Severity Reaction Status Date / Time Penicillins [PENICILLINS] AdvReac Severe IT PIERCE Verified 02/16/18 00:58 LIKE MAD NOTHING DIGESTS Review of Systems Review of Systems Narrative: 14 point review of systems is negative other than in HPI Exam Vital Signs (past 8 hours): - 10/25/21 14:13 10/25/21 14:14 10/25/21 14:16 Temperature 97.2 F L Pulse Rate 132 H 132 H 130 H Respiratory Rate 23 18 Blood Pressure 132/99 H 132/99 H Pulse Oximetry 97 98 99 10/25/21 14:30 10/25/21 15:00 10/25/21 15:30 Temperature Pulse Rate 136 H 132 H 130 H Respiratory Rate 23 20 17 Blood Pressure 148/96 H 131/92 H Pulse Oximetry 99 99 98 10/25/21 15:31 10/25/21 15:59 10/25/21 16:00 Temperature Pulse Rate 130 H 130 H Respiratory Rate 18 22 Blood Pressure 151/94 H 165/93 H Pulse Oximetry 100 100 Oxygen Delivery Method Room Air Narrative Exam Narrative: CONSTITUTIONAL: NAD HEENT: N/C A/T EOMI PERRL FUNDI NOT VIEWED. NARES PATENT SCLERA CLEAR OROPHARYNX CLEAR NECK: SUPPLE, NO THYROMEGALY, BRUITS THORAX: SYMMETRICAL RESPIRATORY: BIBASILAR RALES AND DECREASED BREATH SOUNDS AT THE BASES CARDIAC: TACHY WITH OCCASIONAL ECTOPIC BEATS NO LIFTS HEAVES RUBS MURMURS GI: ROTUND BENIGN BOWEL SOUNDS PRESENT : NO HENDERSON PRESENT MUSCULOSKELETAL: 2+ BILATERAL LOWER EXTREMITY EDEMA. BOTH LOWER EXTREMITIES WITH DRESSINGS/BANDAGES FROM FEET TO KNEE NEUROLOGIC: GROSSLY PHYSIOLOGIC PSYCH: MOOD AND AFFECT NORMAL. AWAKE, ALERT, ORIENTED X3 SKIN: UPPER EXTREMITY WITH ECCHYMOSES Objective Labs Result Diagrams: 10/25/21 14:10 10/25/21 14:10 Labs: Laboratory Results - last 24 hr 10/25/21 10/25/21 10/25/21 14:10 14:10 14:10 WBC 6.5 RBC 4.33 L Hgb 13.2 L Hct 39.4 L MCV 91.1 MCH 30.4 MCHC 33.4 RDW 12.6 Plt Count 184 Neut % (Auto) 65.4 Lymph % (Auto) 24.6 L [place] % (Auto) 7.2 Eos % (Auto) 2.0 Baso % (Auto) 0.8 Neut # (Auto) 4300 Lymph # (Auto) 1600 [place] # (Auto) 500 Eos # (Auto) 100 Baso # (Auto) 100 PT 12.2 INR 1.1 APTT 36 Sodium 134 L Potassium 3.4 Chloride 97 L Carbon Dioxide 31 BUN 9 Creatinine 1.06 Estimated GFR > 60.0 BUN/Creatinine Ratio 8.5 Glucose 108 Calcium 9.5 Total Bilirubin 0.7 AST 31 ALT 24 Alkaline Phosphatase 121 Total Creatine Kinase 59 CK-MB (CK-2) TNP CK-MB (CK-2) Rel Index TNP Troponin I < 0.012 NT-Pro-B Natriuret Pep 3440 H Total Protein 6.8 Albumin 4.0 Globulin 2.8 Albumin/Globulin Ratio 1.4 SARS-CoV-2 (PCR) 10/25/21 14:20 WBC RBC Hgb Hct MCV MCH MCHC RDW Plt Count Neut % (Auto) Lymph % (Auto) [place] % (Auto) Eos % (Auto) Baso % (Auto) Neut # (Auto) Lymph # (Auto) [place] # (Auto) Eos # (Auto) Baso # (Auto) PT INR APTT Sodium Potassium Chloride Carbon Dioxide BUN Creatinine Estimated GFR BUN/Creatinine Ratio Glucose Calcium Total Bilirubin AST ALT Alkaline Phosphatase Total Creatine Kinase CK-MB (CK-2) CK-MB (CK-2) Rel Index Troponin I NT-Pro-B Natriuret Pep Total Protein Albumin Globulin Albumin/Globulin Ratio SARS-CoV-2 (PCR) Negative Assessment & Plan Assessment & Plan narrative: 1. Acute congestive heart failure -CXR w/cardiomegaly with mild to moderate pulmonary edema. BNP 3440 - Lasix 40 mg IV daily - lisinopril 5 mg p.o. daily - Lipitor 20 mg p.o. daily -Serial BMPs - echocardiogram - daily I&O in weight - use of beta blockers, Jonnie inhibitors, ARBs, spironolactone per needed as directed by heart failure guideline - 2 g sodium diet - check lipid panel 2. BILATERAL LOWER EXTREMITY EDEMA WITH WOUNDS - maintain patient's present dressings - resume his wound care as an outpatient with his home health RN 3. hypothyroid - continue levothyroxine - check TSH 4. hypertension - lisinopril 5 mg p.o. daily DVT prophylaxis:heparin 5000 units subQ b.i.d. and SCDs CODE STATUS: After discussion with patient he has reconfirm his status as full code DISPO patient requires 2 hospital midnights for acute medical care AT DISCHARGE WILL NEED TO RESUME HIS HOME HEALTH RN FOR WOUND CARE Time Spent With Patient Critical Care time: I spent a total of [] minutes of critical care time on this patient's care today; this time is exclusive of procedural time.
[2021-10-25] MEDS: METOPROLOL IR 25 MG TABLET PO (18:25)
--- NOTE | 2021-10-25 18:50 | PC.NURSE ---
Patient admitted at 1700 with CHF exacerbation. He is having some sob when talking and is on ra in the 90s. Patient is alert and oriented x3, he has swollen testicles and penis. Foreskin drawn back and cleaned well. Patient has some bruising, dry skin, and a rash to his thigh area, bilaterally. He also has wraps to bilateral legs that have coban on them. He states that they are not to tight and the feel ok. Patients pedal pulses are present. His feet are red and swollen. His lung sounds have crackles to lower bilateral bases. HR up to 150s and sustaining in the 120s. Metoprolol 25mg given to patient, will check on pulse. EKG also obtained. He has eaten dinner and is going to get a ro catheter placed as he has not voided and for accurate Intake and Output.
[2021-10-25 20:37] LABS: TSH w/ Reflex to FT4 3.33 uIU/mL (0.47-4.68)
[2021-10-25] MEDS: ATORVASTATIN 20 MG TABLET PO (20:46)
[2021-10-25] MEDS: HEPARIN 5,000 UNIT/ML VIAL 5000 UNIT SUBCUT (20:46)
[2021-10-25] MEDS: DOCUSATE 100 MG CAPSULE PO (20:46)
[2021-10-25] MEDS: METOPROLOL ER 25 MG TABLET PO (21:30)
[2021-10-25] MEDS: ACETAMINOPHEN 325 MG TABLET 650 MG PO (22:54)
[2021-10-26] VITALS (8 sets, daily range): BP systolic 109–144; BP diastolic 57–86; PULSE 62–131; RESP 18–22; TEMP 36.2–36.8; O2SAT 94–100
[2021-10-26] MEDS: HYDROCODONE/ACET 5/325 TABLET 1 TAB PO (01:55)
[2021-10-26 02:36] LABS: Appearance Urine UA CLEAR; Bilirubin Urine UA 1+ (NEGATIVE); Color Urine UA YELLOW; Glucose Urine UA NEGATIVE (Negative); Ketones Urine UA TRACE (NEGATIVE); Leukocyte Esterase Urine UA NEGATIVE (NEGATIVE); Nitrite Urine UA NEGATIVE (Negative); Occult Blood Urine UA TRACE-INTACT (Negative); Protein Urine UA 1+ (Negative); Urobilinogen Urine UA 0.2 E.U./dL (0.2); pH Urine UA 5.5 (4.5-8.0)
[2021-10-26 02:47] LABS: Ictotest Urine Negative (Negative)
[2021-10-26 02:48] LABS: Bacteria Urine None Seen; Calcium Oxalate Crystals Urine Few; Culture Indicated Urine Cult Not Indicated; Hyaline Casts Urine 1-5/LPF; RBC Urine 0-1/HPF (0-5/HPF); WBC Urine 0-1/HPF (0-5/HPF)
[2021-10-26 06:11] LABS: Add Manual Diff / Slide Review NO; Basophils Absolute Auto 0 /uL (0-100); Basophils Percent Auto 0.6 % (0-2); Eosinophils Absolute Auto 100 /uL (0-450); Eosinophils Percent Auto 1.8 % (2-4); Hematocrit 38.2 % (41-53); Hemoglobin 12.7 g/dL (13.5-17.5); Lymphocytes Absolute Auto 2000 /uL (1100-4500); Lymphocytes Percent Auto 28.4 % (25-40); Mean Corpuscular HGB Conc 33.2 % (30-36); Mean Corpuscular Hemoglobin 30.1 PG (26-34); Mean Corpuscular Volume 90.7 fL (80-100); Monocytes Absolute Auto 600 /uL (0-900); Monocytes Percent Auto 8.7 % (3-14); Neutrophils Absolute Auto 4200 /uL (1500-7000); Neutrophils Percent Auto 60.5 % (50-75); Platelet Count 179 X10^3/uL (150-400); Red Blood Cell Count 4.21 X10^6/uL (4.5-5.9); Red Cell Distribution Width 12.5 % (11.6-14.8); White Blood Cell Count 6.9 X10^3/uL (4.5-11.0)
[2021-10-26 06:21] LABS: Magnesium 1.7 mg/dL (1.6-2.3)
[2021-10-26 06:22] LABS: BUN Creatinine Ratio 9.6 (6-22); Blood Urea Nitrogen 11 mg/dL (9-20); Calcium 9.4 mg/dL (8.4-10.2); Carbon Dioxide 31 mmol/L (22-32); Chloride 99 mmol/L (98-107); Estimated Glomerular Filt Rate > 60.0 mL/min (>60); Glucose 90 mg/dL (80-110); HEMOLYSIS 22 (0-50); Potassium 3.6 mmol/L (3.4-5.1); Sodium 131 mmol/L (137-145)
[2021-10-26] MEDS: LEVOTHYROXINE 125 MCG TABLET PO (06:49)
[2021-10-26] MEDS: DOCUSATE 100 MG CAPSULE PO ×2 (09:06→21:03)
[2021-10-26] MEDS: SODIUM CHLORIDE 0.9% FLUSH 10 ML IV ×2 (09:06→21:04)
[2021-10-26] MEDS: METOPROLOL IR 25 MG TABLET PO (09:06)
[2021-10-26] MEDS: lisinopriL 5 MG TABLET PO (09:06)
[2021-10-26] MEDS: HEPARIN 5,000 UNIT/ML VIAL 5000 UNIT SUBCUT ×2 (09:06→21:03)
[2021-10-26] MEDS: FUROSEMIDE 40 MG/4 ML VIAL IV (09:06)
--- NOTE | 2021-10-26 09:08 | CM.DANOTE ---
Addendum entered by Brandie Box R.N. 10/26/21 11:59: Called [facility] to see if patient is under their services, and he is not. Called [facility], and spoke to David. She indicated that patient is currently with [facility] for nursing. She indicated that she will need resumption orders if he is inpatient, otherwise, DC Summary. Will give update upon discharge. Original Note: DCP: Case received, EMR reviewed and met with patient. Introduced self and role. Was able to obtain information regarding patient's baseline activity level prior to hospitalization, as well as his current living situation. DCP assessment completed with information currently available. Patient is a 76 year old male who admitted yesterday afternoon to the care of the hospitalist team. PCP: Dr. Hoover. Payer: confirmed: [employer]age. Patient came to the hospital via ambulance secondary to having increase swelling, fluid retention. Home [facility] had recommended that patient come over the hospital. Patient holds current diagnosis of pulmonary edema, and he is here for diuresis. Met with patient in his room. He was sitting up in his chair, alert and oriented, hard of hearing, patient has a hearing device. Confirmed that he resides here in [place] with his spouse, Avani. He has a son that lives next door, and helps with meals. Patient has a home health nurse that comes in about 3 times a week for wound care, he has compression wraps due to edema. He resides in a trailer, patient indicated, he uses a walking stick that he made himself, because a walker doesn't work in his trailer. P: DCP to continue to follow. may be by later. Patient indicated, she works daily, and isn't there all of the time. Will find out which home health agency he uses, and give update. He most likely will return home with resumption of home health. Brandie Box RN/Port Captain Discharge Planning/Care Management Discharge Assessment Start: 10/26/21 09:06 Freq: Status: Active Protocol: Document 10/26/21 09:06 (Rec: 10/26/21 09:08 [id number]) Discharge Planning Assessment Assigned Inside Sales Territory Manager Brandie Box RN/Port [place] Advance Directives? Yes Advance Directives on File No History Provided By Patient,Significant Other, Medical Record Household Members spouse Type of transporation used prior to Relies on Others admit Independent with ADL's Yes Is patient alert and oriented? Yes Needs Assistance With Meal Prep,Home Chores / Shopping Caregiver for Another No DME Already Rented / Owned Other Comment Patient uses a walking stick, since he lives in a trailer Patient/Family Preference Home with Home Health Comment Patient is currently under home health services. Comment . Comment Patient indicated that he does live spouse, son, next door. Discharge Plan Home with Home Health Transportation Arrangement Family Referrals Initiated Home Health Whiteboard Updated in Patient Room with Yes name and ext. # of Inside Sales Territory Manager Review Status In Process Next Review Type Continued Stay Review
--- NOTE | 2021-10-26 13:37 | P.PN_ITS ---
Subjective Subjective Date Patient Seen: 10/26/21 Time Patient Seen: 09:15 Interval history: The pt reports that he is having significant abdominal and leg pain secondary to the distension from swelling. He usually uses bag balm on it at home, and did not have that last night. He continues to have SOB, and has been minimally mobile. Exam Vital Signs (past 8 hours): - 10/26/21 08:22 10/26/21 08:33 10/26/21 12:19 Temperature 97.3 F L 98.1 F Pulse Rate 131 H 124 H Respiratory Rate 21 22 Blood Pressure 144/85 H 128/70 Pulse Oximetry 100 94 100 Oxygen Delivery Method Room Air Oxygen Flow Rate 0 Narrative Exam Narrative: Gen: NAD, sitting comfortably in recliner, very hard of hearing CV: RRR, no murmurs Resp: crackles bilateral bases, no wheezing Abd: soft, nontender, nondistended Ext: 3+ pitting edema bilateral LE, legs wrapped Objective Labs Result Diagrams: 10/26/21 05:40 10/26/21 05:40 Labs: Laboratory Results - last 24 hr 10/25/21 10/25/21 10/25/21 14:10 14:10 14:10 WBC 6.5 RBC 4.33 L Hgb 13.2 L Hct 39.4 L MCV 91.1 MCH 30.4 MCHC 33.4 RDW 12.6 Plt Count 184 Neut % (Auto) 65.4 Lymph % (Auto) 24.6 L [place] % (Auto) 7.2 Eos % (Auto) 2.0 Baso % (Auto) 0.8 Neut # (Auto) 4300 Lymph # (Auto) 1600 [place] # (Auto) 500 Eos # (Auto) 100 Baso # (Auto) 100 PT 12.2 INR 1.1 APTT 36 Sodium 134 L Potassium 3.4 Chloride 97 L Carbon Dioxide 31 BUN 9 Creatinine 1.06 Estimated GFR > 60.0 BUN/Creatinine Ratio 8.5 Glucose 108 Calcium 9.5 Magnesium Total Bilirubin 0.7 AST 31 ALT 24 Alkaline Phosphatase 121 Total Creatine Kinase 59 CK-MB (CK-2) TNP CK-MB (CK-2) Rel Index TNP Troponin I < 0.012 NT-Pro-B Natriuret Pep 3440 H Total Protein 6.8 Albumin 4.0 Globulin 2.8 Albumin/Globulin Ratio 1.4 TSH Urine Color Urine Appearance Urine pH Ur Specific [place] Urine Protein Urine Glucose (UA) Urine Ketones Urine Occult Blood Urine Nitrate Urine Bilirubin Ur Bilirubin Confirm Urine Urobilinogen Ur Leukocyte Esterase Urine RBC Urine WBC Calcium Oxalate Crystal Urine Bacteria Hyaline Casts Ur Culture Indicated? SARS-CoV-2 (PCR) 10/25/21 10/25/21 10/26/21 14:10 14:20 :22 WBC RBC Hgb Hct MCV MCH MCHC RDW Plt Count Neut % (Auto) Lymph % (Auto) [place] % (Auto) Eos % (Auto) Baso % (Auto) Neut # (Auto) Lymph # (Auto) [place] # (Auto) Eos # (Auto) Baso # (Auto) PT INR APTT Sodium Potassium Chloride Carbon Dioxide BUN Creatinine Estimated GFR BUN/Creatinine Ratio Glucose Calcium Magnesium Total Bilirubin AST ALT Alkaline Phosphatase Total Creatine Kinase CK-MB (CK-2) CK-MB (CK-2) Rel Index Troponin I NT-Pro-B Natriuret Pep Total Protein Albumin Globulin Albumin/Globulin Ratio TSH 3.33 Urine Color Yellow Urine Appearance Clear Urine pH 5.5 Ur Specific [place] 1.020 Urine Protein 1+ H Urine Glucose (UA) Negative Urine Ketones Trace H Urine Occult Blood Trace-intact Urine Nitrate Negative Urine Bilirubin 1+ H Ur Bilirubin Confirm Negative Urine Urobilinogen 0.2 Ur Leukocyte Esterase Negative Urine RBC 0-1/hpf Urine WBC 0-1/hpf Calcium Oxalate Crystal Few H Urine Bacteria None seen Hyaline Casts 1-5/lpf Ur Culture Indicated? Cult not indicated SARS-CoV-2 (PCR) Negative 10/26/21 10/26/21 10/26/21 05:40 05:40 05:40 WBC 6.9 RBC 4.21 L Hgb 12.7 L Hct 38.2 L MCV 90.7 MCH 30.1 MCHC 33.2 RDW 12.5 Plt Count 179 Neut % (Auto) 60.5 Lymph % (Auto) 28.4 [place] % (Auto) 8.7 Eos % (Auto) 1.8 L Baso % (Auto) 0.6 Neut # (Auto) 4200 Lymph # (Auto) 2000 [place] # (Auto) 600 Eos # (Auto) 100 Baso # (Auto) 0 PT INR APTT Sodium 131 L Potassium 3.6 Chloride 99 Carbon Dioxide 31 BUN 11 Creatinine 1.14 Estimated GFR > 60.0 BUN/Creatinine Ratio 9.6 Glucose 90 Calcium 9.4 Magnesium 1.7 Total Bilirubin AST ALT Alkaline Phosphatase Total Creatine Kinase CK-MB (CK-2) CK-MB (CK-2) Rel Index Troponin I NT-Pro-B Natriuret Pep Total Protein Albumin Globulin Albumin/Globulin Ratio TSH Urine Color Urine Appearance Urine pH Ur Specific [place] Urine Protein Urine Glucose (UA) Urine Ketones Urine Occult Blood Urine Nitrate Urine Bilirubin Ur Bilirubin Confirm Urine Urobilinogen Ur Leukocyte Esterase Urine RBC Urine WBC Calcium Oxalate Crystal Urine Bacteria Hyaline Casts Ur Culture Indicated? SARS-CoV-2 (PCR) [facility] Medical History Alcohol abuse Congestive heart failure Depression Esophageal ulceration Essential hypertension GERD (gastroesophageal reflux disease) Hypothyroidism Mixed hyperlipidemia Venous stasis Surgical History Status post appendectomy Social History household members: spouse Smoking Status: Never smoker alcohol intake: never Assessment & Plan Assessment & Plan narrative: Pt is a76yo man with HTN, CHF, Depression, Hypothyroidism who presented with worsening SOB - exam, labs, and CXR consistent with CHF exacerbation. 1) Acute systolic CHF exacerbation: Echo yesterday showing EF 35%, significant drop from 2018. Relatively limited urine output thus far. - Increase to 40 IV Lasix BID - Continue Lisinopril, Atorvastatin - Transition to Metoprolol ER 50mg daily, may need higher dosing based on HR in the near future - Strict I/O, daily weights - 2g sodium diet 2) Atrial flutter/fibrillation noted on Echo: Seems paroxysmal thus far based on telemetry. Very mild tachycardia. - Continue telemetry - Metoprolol as above - Start Aspirin 81mg daily. Will discuss anticoagulation further tomorrow. Pt is a high fall risk. 3) Bilateral lower extremity wounds: - Continue with dressings present 4) Hypothyroidism: Appropriately supplemented - Continue Levothyroxine 5) HTN: - Antihypertensives as above Code: Full Diet: Cardiac, sodium restricted DVT ppx: Heparin Dispo: Pending adequate diuresis, HR stabilization. Anticipate at least 2 additional midnights. Time Spent With Patient Critical Care time: I spent a total of [] minutes of critical care time on this patient's care today; this time is exclusive of procedural time.
[2021-10-26] MEDS: ASPIRIN EC 81 MG TABLET PO (13:58)
[2021-10-26] MEDS: METOPROLOL ER 50 MG TABLET PO (13:58)
--- NOTE | 2021-10-26 21:00 | PC.NURSE ---
Spoke to Dr. Richter in regards pt requesting melatonin for sleep. Dr. Richter also increased lasix to 60 mg bid due to edema and wanting increase urine output.
[2021-10-26] MEDS: ATORVASTATIN 20 MG TABLET PO (21:03)
[2021-10-26] MEDS: FUROSEMIDE 40 MG/4 ML VIAL 60 MG IV (21:11)
[2021-10-26] MEDS: MELATONIN 3 MG TABLET 6 MG PO (21:11)
[2021-10-27] VITALS (7 sets, daily range): BP systolic 104–132; BP diastolic 53–82; PULSE 53–111; RESP 17–20; TEMP 35.9–36.5; O2SAT 98–100
[2021-10-27 06:03] LABS: Blood Urea Nitrogen 15 mg/dL (9-20); Calcium 9.2 mg/dL (8.4-10.2); Carbon Dioxide 32 mmol/L (22-32); Chloride 99 mmol/L (98-107); Estimated Glomerular Filt Rate > 60.0 mL/min (>60); Glucose 91 mg/dL (80-110); HEMOLYSIS < 15 (0-50); Potassium 3.2 mmol/L (3.4-5.1); Sodium 133 mmol/L (137-145)
[2021-10-27] MEDS: ACETAMINOPHEN 325 MG TABLET 650 MG PO ×2 (08:37→21:01)
[2021-10-27] MEDS: METOPROLOL ER 50 MG TABLET PO (08:38)
[2021-10-27] MEDS: lisinopriL 5 MG TABLET PO (08:38)
[2021-10-27] MEDS: ASPIRIN EC 81 MG TABLET PO (08:38)
[2021-10-27] MEDS: HEPARIN 5,000 UNIT/ML VIAL 5000 UNIT SUBCUT ×2 (08:38→20:57)
[2021-10-27] MEDS: DOCUSATE 100 MG CAPSULE PO ×2 (08:38→20:57)
[2021-10-27] MEDS: SODIUM CHLORIDE 0.9% FLUSH 10 ML IV ×3 (08:38→21:00)
[2021-10-27] MEDS: FUROSEMIDE 40 MG/4 ML VIAL 80 MG IV ×2 (09:25→20:57)
[2021-10-27] MEDS: POTASSIUM CHLORIDE 20 MEQ TAB 40 MEQ PO (11:35)
--- NOTE | 2021-10-27 12:28 | PM.PN.1 ---
Subjective Subjective Date Patient Seen: 10/27/21 Time Patient Seen: 09:40 Interval history: The pt reports that his breathing is slightly improved, but he hasn't moved to really test it. He states that his right shoulder is aching slightly. He otherwise has no complaints today. As per nursing, the pt has not moved from the recliner since being in the hospital. Exam Vital Signs (past 8 hours): - 10/27/21 09:00 Temperature 96.7 F L Pulse Rate 58 L Respiratory Rate 20 Blood Pressure 104/70 Pulse Oximetry 99 Oxygen Delivery Method Room Air Oxygen Flow Rate 0 Narrative Exam Narrative: Gen:? NAD, sitting comfortably in recliner, very hard of hearing CV:? RRR, no murmurs Resp:? crackles bilateral bases - slightly improved, no wheezing Abd:? soft, nontender, nondistended Ext:? 2+ pitting edema bilateral LE to mid-thigh level, legs wrapped Objective Labs Result Diagrams: 10/26/21 05:40 10/27/21 05:30 Labs: Laboratory Results - last 24 hr 10/27/21 05:30 Sodium 133 L Potassium 3.2 L Chloride 99 Carbon Dioxide 32 BUN 15 Creatinine 1.15 Estimated GFR > 60.0 BUN/Creatinine Ratio 13.0 Glucose 91 Calcium 9.2 PFSH Medical History Alcohol abuse Congestive heart failure Depression Esophageal ulceration Essential hypertension GERD (gastroesophageal reflux disease) Hypothyroidism Mixed hyperlipidemia Venous stasis Surgical History Status post appendectomy Social History household members: spouse Smoking Status: Never smoker alcohol intake: never Assessment & Plan Assessment & Plan narrative: Pt is a76yo man with HTN, CHF, Depression, Hypothyroidism who presented with worsening SOB - exam, labs, and CXR consistent with CHF exacerbation.? 1)? Acute systolic CHF exacerbation:? Echo showing EF 35%, significant drop from 2018.? Relatively limited urine output thus far, with net negative around 1600cc. - Increase to 80 IV Lasix BID - Continue Lisinopril, Atorvastatin - Metoprolol ER 50mg daily - Strict I/O, daily weights - 2g sodium diet - PT/OT to help mobilize 2)? Atrial flutter/fibrillation noted on Echo:? Paroxysmal thus far based on telemetry.? Tachycardia improved - Continue telemetry - Metoprolol as above - Start Aspirin 81mg daily.? Pt is high fall risk with mobilization, anticoagulation deferred for now. 3)? Bilateral lower extremity wounds: - Continue with dressings present 4)? Hypothyroidism:? Appropriately supplemented - Continue Levothyroxine 5)? HTN: - Antihypertensives as above Code:? Full Diet:? Cardiac, sodium restricted DVT ppx:? Heparin Dispo:? Pending adequate diuresis.? Hopeful for d/c in 1-2 days. Time Spent With Patient Critical Care time: I spent a total of [] minutes of critical care time on this patient's care today; this time is exclusive of procedural time.
--- NOTE | 2021-10-27 14:44 | CM.DPC ---
DCP Cont: Dr. Richter came by the care management office and indicated that patient is not yet medically ready for discharge, needs further diuresis. David at [facility] had called with an update. Relayed this information to her, and let her know that patient is inpatient status, and will send her resumption orders when he is ready for discharge. He is only getting nursing services with [facility] for wound care. P: DCP to continue to follow for an needs. Patient should be able to go home when he is medically stable with the resumption of [facility] nursing for wound care. Brandie Box RN/Construction Sales Representative
--- NOTE | 2021-10-27 16:13 | PT.IIE ---
Current Diagnoses Heart failure, unspecified (10/25/21) Medical History (Last Reviewed 10/25/21 @ 14:25 by Mike Medina PA-C) Alcohol abuse Congestive heart failure Depression Esophageal ulceration Essential hypertension GERD (gastroesophageal reflux disease) Hypothyroidism Mixed hyperlipidemia Venous stasis Physical Therapy Inpatient Evaluation/Re-Eval M1 PT/OT-IP Prior Functional Status Start: 10/27/21 14:52 Freq: NEEDED Status: Active Protocol: Document 10/27/21 16:13 AW (Rec: 10/27/21 16:44 AW [id number]) Medical Review Prior Functional Status Medical History Reviewed Yes Communication Pt is able to make needs known . He is [place] and wears an amplification device around his neck. Mobility and Gait Pt uses a walking stick in his trailer and a 4WW outside. He states he feels unbalanced a lot and falls more than a few times per year. Activities of Daily Living and IADL's Pt states he wears minimal clothes but can change without assist. He finds it difficult to shower since he has to coordinate timing with home health to change his BLE dressings. Pt toilets without assist. Pt's spouse does grocery shopping. Prior Functional Level (Other details) Pt is active with [facility]. Social History Household Members spouse Number of Floors (Floors) One Floor Number of Stairs To Enter/Railing? Pt has ramped entry Home Environment Standard Height Toilet,Tub/ Shower,Ramp Home Equipment Four Wheel Walker,Shower Seat without Backrest,Hand Held Shower Employment Status Retired Additional Social History Comment Pt lives with his spouse, Avani, in a 40'x8' trailer with a ramped entry. He sleeps in an zero gravity chair which allows him to elevate his legs. M2 PT-IP Current Condition Start: 10/27/21 14:52 Freq: NEEDED Status: Active Protocol: Document 10/27/21 16:13 AW (Rec: 10/27/21 16:44 AW [id number]) Physical Therapy Current Condition Current Condition Evaluation Date 10/27/21 Treatment Diagnosis CHF exacerbation; BLE wounds; impaired mobility and gait M3 PT-IP Subjective Start: 10/27/21 14:52 Freq: NEEDED Status: Active Protocol: Document 10/27/21 16:13 AW (Rec: 10/27/21 16:44 AW [id number]) Subjective Physical Therapy Visit Type Type Initial Evaluation Visit Start Time 15:45 Visit Stop Time 16:13 Total Visit Minutes 28 Physical Therapy Visit Comments Patient Comments I'd like to go for a walk Patient Goals Return home with resumed HH services Therapy Pain Assessment Pain When Pain Assessed During Mobility Pain Present Pain Present Denied Pain M4 PT-IP Mobility and Gait Start: 10/27/21 14:52 Freq: NEEDED Status: Active Protocol: Document 10/27/21 16:13 AW (Rec: 10/27/21 16:44 AW [id number]) PT-Transfer Assessment Sit to and From Stand Sit to and from Stand Standby Assistance,Contact Guard Assistance,Use of Upper Extremities Equipment Transfer Assistive Device Gait Belt,4 Wheeled Walker Orthotic/Prosthetic Devices or Brace: No Transfers Transfer Destination Chair Transfer Technique ambulated with 4ww Transfer Ability Level of Assist Standby Assistance Comments Mobility Comments Pt was reclined fully in the chair as PT arrived. He agreed to mobilize. BP was 115/70 HR 66. Pt was able to push the recliner legs down and stand SBA. He used 4WW to ambulate 100' SBA. He was SOB immediately but managed his pace and stated he needed a seated rest break. He attempted to sit on 4WW. PT educated pt to push 4WW against a wall or sturdy surface before sitting and pt did so. SpO2 was stable high 90's. After 4 minute, rest, pt stood again CGA and walked back to the room with 4WW SBA. He returned to supine in the chair CGA and was positioned there with call light and tray table in reach. SpO2 was 99% after activity and HR was 72. Gait Assessment Gait Distance (Feet) 200 Assistive Devices Assistive Device Gait Belt,4 Wheeled Walker Orthotic/Prosthetic Devices or Brace: No Gait Deviations General Gait Pattern Antalgic,Flexed Trunk,Lateral Trunk Lean,Wide Based Gait Factors Limiting Gait Function Factors Limiting Gait Function Decreased Sensation,Pain,Poor Safety Awareness,Respiratory Distress Comments Gait Comments See mobility comments for details Stair Climbing Assessment Comments Stair Climbing Comments Not assessed. Pt has ramp at home. PT-Balance Assessment Sitting Balance and Reactions Static Sitting Balance Ability Good Dynamic Sitting Balance Ability Good Standing Balance and Reactions Static Standing Balance Ability Good Dynamic Standing Balance Ability Fair Device Used 4WW M5 PT-IP Objective Assessments Start: 10/27/21 14:52 Freq: NEEDED Status: Active Protocol: Document 10/27/21 16:13 AW (Rec: 10/27/21 16:44 AW [id number]) Orientation Orientation/Cognition Level of Alertness Alert Orientation Name,Day of Week,Place, Situation Language Function Ability Hard of Hearing Safety Awareness Decreased Safety Awareness Gross Range of Motion Lower Extremity ROM Assessment Within Functional Limits Impairments WFL but limited due to BLE dressings from midfoot to calf covered by coban. Strength Lower Extremity Strength Assessment Bilaterally Impaired Hip 4-/5 Knee 4/5 Ankle 4+/5 DF Sensation Assessment Comments Sensation Comments Difficult to assess due to wound dressings Muscle Tone Muscle Tone WNL Yes Other Assessments Other Other Assessments BLE wounds are wrapped midfoot to below the knee and covered with coban. M6 PT-IP Treatment Start: 10/27/21 14:52 Freq: NEEDED Status: Active Protocol: Document 10/27/21 16:13 AW (Rec: 10/27/21 16:44 AW [id number]) Physical Therapy Treatment Education Education Provided Safety Other Treatments Other Treatment Performed Educated pt on energy conservation and safe use of 4WW. M7 PT-IP Assessment and Plan Start: 10/27/21 14:52 Freq: NEEDED Status: Active Protocol: Document 10/27/21 16:13 AW (Rec: 10/27/21 16:44 AW [id number]) PT Summary Assessment and Plan Potential Rehabilitation Potential Good Status of Condition at Evaluation Evolving Summary Impairments Pain,Strength,Transfers,Gait, Activity Tolerance Assessment Summary Jay is a 76 yo man admitted with CHF exacerbation ( ejection fraction 35%). He is modified independent for limited mobility using a walking stick and 4WW at baseline. Pt required SBA/CGA for sit to stand, transfers, and 200 feet ambulation with 4WW on evaluation. He is likely near his functional baseline. PT anticipates pt will be safe to discharge home with assist once medically stable. He may benefit from PT services added to his home health plan to progress strength, improve wound healing, and progress mobility independence/reduce risk of falls. Goals Transfer Goal Independent,Four Wheeled Walker Gait Goal Independent,Four Wheel Walker Gait Distance 200 Days to Meet Goals 3 Frequency of Treatment Frequency Of Treatment Once a Day Treatment Plan Physical Therapy Treatment Plan Transfer Training,Gait Training,Therapeutic Exercise, Balance Retraining,Discharge Planning,Hot or Cold Pack Other Recommendations and Next Treatment gait training with 4WW; Focus transfers; focus on safety with 4WW Precautions Other Precautions falls Recommendations To Nursing Amount of Assist Needed 1 Person Assist Discharge Recommendations PT Discharge Recommendations Home with Assistance,Home Health Transportation Needs at Discharge Private Vehicle
[2021-10-27 16:44] LABS: Magnesium 1.8 mg/dL (1.6-2.3)
[2021-10-27] MEDS: MELATONIN 3 MG TABLET 6 MG PO (20:57)
[2021-10-27] MEDS: ATORVASTATIN 20 MG TABLET PO (20:58)
[2021-10-28] VITALS (7 sets, daily range): BP systolic 107–127; BP diastolic 56–76; PULSE 53–98; RESP 14–20; TEMP 36.3–36.7; O2SAT 98–99
[2021-10-28] MEDS: LEVOTHYROXINE 125 MCG TABLET PO (06:49)
[2021-10-28] MEDS: SODIUM CHLORIDE 0.9% FLUSH 10 ML IV (06:50)
--- NOTE | 2021-10-28 06:55 | PC.NURSE ---
Pt hasn't had a BM since he has been in the hospital. According to him he takes a teaspoon of Psyllium after each meals which according to him he only has 2 meals a day. He also takes Super colon cleanse powder. Pt is insisting that the doctor would order this two items. I tried to explain to patient that we might not have this items here. Pt has an order for milk of magnesia which is refusing. Pt abdomen is distented. No nausea or vomiting.
[2021-10-28 07:52] LABS: BUN Creatinine Ratio 14.4 (6-22); Blood Urea Nitrogen 18 mg/dL (9-20); Calcium 9.6 mg/dL (8.4-10.2); Carbon Dioxide 31 mmol/L (22-32); Chloride 99 mmol/L (98-107); Estimated Glomerular Filt Rate 56.2 mL/min (>60); Glucose 93 mg/dL (80-110); HEMOLYSIS < 15 (0-50); Potassium 3.5 mmol/L (3.4-5.1); Sodium 135 mmol/L (137-145)
[2021-10-28] MEDS: POTASSIUM CHLORIDE 20 MEQ TAB 40 MEQ PO (08:35)
[2021-10-28] MEDS: lisinopriL 5 MG TABLET PO (08:36)
[2021-10-28] MEDS: ASPIRIN EC 81 MG TABLET PO (08:42)
[2021-10-28] MEDS: METOPROLOL ER 50 MG TABLET PO (08:42)
[2021-10-28] MEDS: polyethylene glycoL 3350 17 GM POWD.PACK PO (08:43)
[2021-10-28] MEDS: DOCUSATE 100 MG CAPSULE PO ×2 (08:43→20:24)
[2021-10-28] MEDS: HEPARIN 5,000 UNIT/ML VIAL 5000 UNIT SUBCUT ×2 (08:43→20:23)
[2021-10-28] MEDS: FUROSEMIDE 40 MG/4 ML VIAL 80 MG IV ×2 (08:43→20:23)
--- NOTE | 2021-10-28 13:12 | P.PN_ITS ---
Subjective Subjective Date Patient Seen: 10/28/21 Time Patient Seen: 13:12 Interval history: patient seen in follow-up of congestive heart failure and atrial fibrillation. Patient overall is feeling slightly better today. Has no new significant complaints or problems. Still not mobilizing although did get up and move around some. Desires to go home. No other changes. No chest pain no shortness of breaths. Exam Vital Signs (past 8 hours): - 10/28/21 05:20 10/28/21 08:36 10/28/21 08:42 Temperature 98.0 F Pulse Rate 55 L 60 60 Respiratory Rate 20 Blood Pressure 127/63 112/71 112/71 Pulse Oximetry 98 10/28/21 10:59 Temperature 97.3 F L Pulse Rate 53 L Respiratory Rate 18 Blood Pressure 115/56 L Pulse Oximetry 99 Oxygen Delivery Method Room Air Oxygen Flow Rate 0 Narrative Exam Narrative: Alert obese male sitting and chair in no acute distress. HEENT exam is unremarkable neck supple without adenopathy lungs are clear. Heart regular rate and rhythm. Extremities with continued edema but improved still in wound care sleeves Objective Labs Result Diagrams: 10/26/21 05:40 10/28/21 07:25 Labs: Laboratory Results - last 24 hr 10/27/21 10/28/21 05:30 07:25 Sodium 135 L Potassium 3.5 Chloride 99 Carbon Dioxide 31 BUN 18 Creatinine 1.25 Estimated GFR 56.2 L BUN/Creatinine Ratio 14.4 Glucose 93 Calcium 9.6 Magnesium 1.8 PFSH Medical History Alcohol abuse Congestive heart failure Depression Esophageal ulceration Essential hypertension GERD (gastroesophageal reflux disease) Hypothyroidism Mixed hyperlipidemia Venous stasis Surgical History Status post appendectomy Social History household members: spouse Smoking Status: Never smoker alcohol intake: never Assessment & Plan Assessment & Plan narrative: acute systolic congestive heart failure. Echo showing 35% EF. We discussed what this represents. Seems to be having better output at this point. At this point will continue 80 b.i.d. and Hopen 2 days we can consider going home. Will continue his usual medication and follow. AFib. Patient in AFib of with intermittent changes comes in an out. Patient is a very poor candidate for anticoagulation. Will continue aspirin and follow fr om there. Control seems to overall be okay. Bilateral lower extremity wounds. Stable. As poor 1 care. Hypothyroidism. On levothyroxine. Will continue. Hypertension. Medicines as above per AFib been doing well. Code status. Long discussion with patient today. He would prefer DNR will switch. DVT prophylaxis. On heparin. Disposition. Hopefully by Thursday will could be considering discharge. Time Spent With Patient Critical Care time: I spent a total of [] minutes of critical care time on this patient's care today; this time is exclusive of procedural time.
--- NOTE | 2021-10-28 15:14 | OT.IP.EVAL ---
Current Diagnoses Heart failure, unspecified (10/25/21) Past Medical History (Last Reviewed 10/25/21 @ 14:25 by Mike Medina PA-C) Alcohol abuse Congestive heart failure Depression Esophageal ulceration Essential hypertension GERD (gastroesophageal reflux disease) Hypothyroidism Mixed hyperlipidemia Status post appendectomy Venous stasis Surgical History (Last Reviewed 10/25/21 @ 14:25 by Mike Medina PA-C) Status post appendectomy Occupational Therapy Inpatient Evaluation/Re-Eval M1 PT/OT-IP Prior Functional Status Start: 10/27/21 14:52 Freq: NEEDED Status: Active Protocol: Document 10/28/21 15:22 CGR (Rec: 10/28/21 15:45 CGR [id number]) Medical Review Prior Functional Status Medical History Reviewed Yes Communication Pt is able to make needs known . He is [place] and wears an amplification device around his neck. Mobility and Gait Pt uses a walking stick in his trailer and a 4WW outside. He states he feels unbalanced a lot and falls more than a few times per year. Activities of Daily Living and IADL's Pt states he wears minimal clothes but can change without assist. He finds it difficult to shower since he has to coordinate timing with home health to change his BLE dressings. Pt toilets without assist. Pt's spouse does grocery shopping. Prior Functional Level (Other details) [facility] is [facility]. Social History Household Members spouse Number of Floors (Floors) One Floor Number of Stairs To Enter/Railing? Pt has ramped entry Home Environment Standard Height Toilet,Tub/ Shower,Ramp Home Equipment Four Wheel Walker,Shower Seat without Backrest,Hand Held Shower Employment Status Retired Additional Social History Comment Pt lives with his spouse, Avani, in a 40'x8' trailer with a ramped entry. He sleeps in an zero gravity chair which allows him to elevate his legs. M1 PT/OT-IP Prior Functional Status Start: 10/28/21 15:15 Freq: NEEDED Status: Active Protocol: Document 10/28/21 15:22 CGR (Rec: 10/28/21 15:45 CGR [id number]) Medical Review Prior Functional Status Medical History Reviewed Yes Communication Pt is able to make needs known . He is [place] and wears an amplification device around his neck. Mobility and Gait Pt uses a walking stick in his trailer and a 4WW outside. He states he feels unbalanced a lot and falls more than a few times per year. Activities of Daily Living and IADL's Pt states he wears minimal clothes but can change without assist. He finds it difficult to shower since he has to coordinate timing with home health to change his BLE dressings. Pt toilets without assist. Pt's spouse does grocery shopping. Prior Functional Level (Other details) Pt is active [facility]. Social History Household Members spouse Number of Floors (Floors) One Floor Number of Stairs To Enter/Railing? Pt has ramped entry Home Environment Standard Height Toilet,Tub/ Shower,Ramp Home Equipment Four Wheel Walker,Shower Seat without Backrest,Hand Held Shower Employment Status Retired Additional Social History Comment Pt lives with his spouse, Avani, in a 40'x8' trailer with a ramped entry. He sleeps in an zero gravity chair which allows him to elevate his legs. M2 OT-IP Current Condition Start: 10/28/21 15:15 Freq: Status: Active Protocol: Document 10/28/21 15:22 CGR (Rec: 10/28/21 15:45 R [id number]) Occupational Therapy Current Condition Current Condition Evaluation Date 10/28/21 Treatment Diagnosis CHF exacerbation Diagnosis Onset Date 10/25/21 M3 OT- IP Subjective and Pain Start: 10/28/21 15:15 Freq: Status: Active Protocol: Document 10/28/21 15:22 CGR (Rec: 10/28/21 15:45 CGR [id number]) OT- Subjective Occupational Therapy Visit Type Type Initial Evaluation Visit Start Time 14:35 Visit Stop Time 15:14 Total Visit Minutes 39 Notes Pt is upset that the doctor won't order him psyllium and super colon cleanse to help with having a BM. OT Pain Assessment Pain When Pain Assessed At Rest Pain Present Pain Present Denied Pain M4 OT- IP ADL's Start: 10/28/21 15:15 Freq: Status: Active Protocol: Document 10/28/21 15:22 CGR (Rec: 10/28/21 15:45 R [id number]) OT [id number] Comments OT Self-Feeding Comments Not meal time OT ADL-Grooming General Evaluation Grooming Ability Standby Assistance Areas Needing Assistance Face Washing Comments OT Grooming Comments seated in 4ww at sink OT ADL-Oral Care General Eval Oral Care Ability Standby Assistance Areas of Assistance Brushing Teeth,Retrieving/Set- Up of Items Comments Oral Care Comments Pt brushed teeth for an extended amount of time seated in rollator at sink. OT ADL-Dressing General Eval Upper Body Dressing Ability Standby Assistance Lower Body Dressing Ability Total Assistance Areas Needing Assistance Socks Comments OT Dressing Comments Pt states that he does not don socks at home and he uses a stick with a hook to help him pick things up and don underwear and pants. SBA for hospital gown. OT ADL-Toileting General Evaluation Toileting Ability Total Assistance Comments OT Toileting Comments Pt with ro and states he is too backed up and can't have a BM OT ADL-Bathing Comments OT Bathing Comments Not performed M5 OT- IP IADL's Start: 10/28/21 15:15 Freq: Status: Active Protocol: Document 10/28/21 15:22 CGR (Rec: 10/28/21 15:45 CGR [id number]) OT-Instrumental Activities of Daily Living Deficits IADL Deficits Identified No Deficits Home Safety Awareness Awareness of Need for Assistance at Home Good Awareness Ability to Problem Solve Emergency Able to Problem Solve Situations Medication Management Medication Management No Deficits Identified Money Management Money Management No Deficits Identified Meal Preparation Meal Preparation Caregiver Provides Assist Training Director Training Director Caregiver Provides Assist Driving Driving Comments Pt states he no longer drives M6 OT- IP Functional Cognition Start: 10/28/21 15:15 Freq: Status: Active Protocol: Document 10/28/21 15:22 CGR (Rec: 10/28/21 15:45 CGR [id number]) Cognitive Factors Limiting Selfcare Function Cognitive Ability Level of Alertness Alert Patient Orientation Name,Age,Birthday,Month,Date, Year,Day of Week,Place, Situation Attention Span Ability Capable of Focused Attention, Capable of Sustained Attention Ability to Follow Commands Able to Follow One Step Commands with Increased Time, Able to Follow One Step Commands with Repetition OT- Vision and Hearing OT- Hearing Assessment OT- Hearing Assessment Hearing Impaired,Right Ear Impaired,Use of Hearing Aids OT- Vision Assessment Visual Acuity Glasses All The Time Visual Attentiveness WFL Occular Pursuits WFL Visual Convergence WFL Vision Assessment Comments Pt states that 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 M7 OT- IP Mobility and Balance Start: 10/28/21 15:15 Freq: Status: Active Protocol: Document 10/28/21 15:22 CGR (Rec: 10/28/21 15:45 CGR [id number]) OT-Transfer Assessment Sit to and From Stand Sit to and from Stand Standby Assistance,Contact Guard Assistance Transfers Transfer Ability Standby Assistance,Contact Guard Assistance Technique Transfer Destination Chair Transfer Technique Stand Step Pivot Devices Transfer Assistive Devices Gait Belt,4 Wheeled Walker Comments Mobility Comments Pt stood from the chair with CGA to SBA using the 4WW. Pt needs vc for proper use of the breaks with a rollator. Pt ambulates around the room with SBA and poor endurance. OT- Gait Assessment Gait Gait Assistance Required: Standby Assistance,Contact Guard Assist Assistive Devices Assistive Device 4 Wheeled Walker OT- Balance Assessment Sitting Balance and Reactions Static Sitting Balance Ability Good Dynamic Sitting Balance Ability Good M8 OT- IP Objective Assessments Start: 10/28/21 15:15 Freq: Status: Active Protocol: Document 10/28/21 15:22 CGR (Rec: 10/28/21 15:45 CGR [id number]) OT Gross Range of Motion Upper Extremity Range of Motion Assessment Within Functional Limits OT Strength Upper Extremity Strength Assessment Within Functional Limits Comments Strength Comments 5/5 OT- Coordination Assessment Upper Extremity Finger to Nose Test Within Functional Limits Finger Tapping Test Within Functional Limits OT-Muscle Tone Assessment Muscle Tone WNL Yes OT Sensation Assessment Edema Edema Present Edema Comments generalized edema M9 OT- IP Assessment and Plan Start: 10/28/21 15:15 Freq: Status: Active Protocol: Document 10/28/21 15:22 CGR (Rec: 10/28/21 15:45 CGR [id number]) OT Summary Assessment and Plan Potential Rehabilitation Potential Good Analytic Complexity at Evaluation Low Summary OT Impairments Functional Mobility,Dressing, Toileting,Bathing,Toilet Transfers,Shower Transfers, Activity Tolerance Progress Towards Goals Slow Progress due to Activity Tolerance Assessment Summary Pt presents as a low complexity evaluation s/p admit for CHF exacerbation. Pt is able to mobilize with poor endurance and CGA to SBA and needs cues for safe use of the 4WW. Pt is likely to progress to being safe for discharge home when medically stable. Pt will benefit from OT services while hospitalized. Goals Grooming Goal Independent Dressing Goal Independent Toileting Goal Independent Bathing Goal Independent Toilet Transfer Goal Independent Shower Transfer Goal Independent Days to Meet Goals 5 Frequency of Treatment Frequency Of Treatment Once a Day Treatment Plan OT Treatment Plan ADL Training,Functional Mobility,Patient/Family Education,Discharge Planning Other Treatment Recommendations and Next energy conservation, shower, Treatment Focus endurance and safety with 4ww Discharge Recommendations OT Discharge Recommendations Home with Assistance Transportation Needs at Discharge Private Vehicle
--- NOTE | 2021-10-28 16:10 | PT.IPTN ---
Current Diagnoses Heart failure, unspecified (10/25/21) Physical Therapy Treatment Note M2 PT-IP Current Condition Start: 10/27/21 14:52 Freq: NEEDED Status: Active Protocol: Document 10/27/21 16:13 AW (Rec: 10/27/21 16:44 AW [id number]) Physical Therapy Current Condition Current Condition Evaluation Date 10/27/21 Treatment Diagnosis CHF exacerbation; BLE wounds; impaired mobility and gait M3 PT-IP Subjective Start: 10/27/21 14:52 Freq: NEEDED Status: Active Protocol: Document 10/28/21 16:10 AW (Rec: 10/28/21 16:21 AW [id number]) Subjective Physical Therapy Visit Type Type Treatment Note Visit Start Time 15:43 Visit Stop Time 16:09 Total Visit Minutes 26 Number of MOLD SPRAYER Visits 0 Physical Therapy Visit Comments Patient Comments I'm not giving up on me yet. Patient Goals Return home with resumed services Therapy Pain Assessment Pain When Pain Assessed At Rest Pain Present Pain Present Denied Pain M4 PT-IP Mobility and Gait Start: 10/27/21 14:52 Freq: NEEDED Status: Active Protocol: Document 10/28/21 16:10 AW (Rec: 10/28/21 16:21 AW [id number]) PT-Transfer Assessment Sit to and From Stand Sit to and from Stand Standby Assistance,Contact Guard Assistance Equipment Transfer Assistive Device Gait Belt,4 Wheeled Walker Orthotic/Prosthetic Devices or Brace: No Transfers Transfer Destination Chair Transfer Technique Stand Step Pivot Transfer Ability Level of Assist Standby Assistance,Contact Guard Assistance Comments Mobility Comments Pt was lying in the chair visiting with his spouse as PT arrived. Pt needed assist to push recliner legs down today. SpO2 was 98% on room air, HR 68. Pt stood CGA and used 4WW to ambulate into the [place]ry. Pt sat on chair scale CGA for RN to record weight. He stood again CGA and ambulated 150 feet SBA with 4WW. He pushed the walker up against a wall before sitting for a rest break but needed cues to set the brakes. Pt needed a longer break today but could carry on conversation throughout and SpO2 was stable 97%. Pt stood from the walker and ambulated back to the room another 150' SBA. On return to the room, pt sat on the chair SBA and elevated his legs. Pt was left with his in the room with call light and tray table in reach. Gait Assessment Gait Distance (Feet) 300 Assistive Devices Assistive Device 4 Wheeled Walker Orthotic/Prosthetic Devices or Brace: No Gait Deviations General Gait Pattern Antalgic,Flexed Trunk,Lateral Trunk Lean,Wide Based Gait Factors Limiting Gait Function Factors Limiting Gait Function Decreased Sensation,Pain,Poor Safety Awareness,Respiratory Distress Comments Gait Comments See mobility comments for details Stair Climbing Assessment Comments Stair Climbing Comments Pt has ramp at home. PT-Balance Assessment Sitting Balance and Reactions Static Sitting Balance Ability Good Dynamic Sitting Balance Ability Good Standing Balance and Reactions Static Standing Balance Ability Good Dynamic Standing Balance Ability Fair Device Used 4WW M5 PT-IP Objective Assessments Start: 10/27/21 14:52 Freq: NEEDED Status: Active Protocol: Document 10/27/21 16:13 AW (Rec: 10/27/21 16:44 AW [id number]) Orientation Orientation/Cognition Level of Alertness Alert Orientation Name,Day of Week,Place, Situation Language Function Ability Hard of Hearing Safety Awareness Decreased Safety Awareness Gross Range of Motion Lower Extremity ROM Assessment Within Functional Limits Impairments WFL but limited due to BLE dressings from midfoot to calf covered by coban. Strength Lower Extremity Strength Assessment Bilaterally Impaired Hip 4-/5 Knee 4/5 Ankle 4+/5 DF Sensation Assessment Comments Sensation Comments Difficult to assess due to wound dressings Muscle Tone Muscle Tone WNL Yes Other Assessments Other Other Assessments BLE wounds are wrapped midfoot to below the knee and covered with coban. M6 PT-IP Treatment Start: 10/27/21 14:52 Freq: NEEDED Status: Active Protocol: Document 10/28/21 16:10 AW (Rec: 10/28/21 16:21 AW [id number]) Physical Therapy Treatment Education Education Provided Safety Other Treatments Other Treatment Performed Continued to reinforce 4WW safety especially the need to set brakes prior to sitting and standing from the seat. M7 PT-IP Assessment and Plan Start: 10/27/21 14:52 Freq: NEEDED Status: Active Protocol: Document 10/28/21 16:10 AW (Rec: 10/28/21 16:21 AW [id number]) PT Summary Assessment and Plan Summary Impairments Pain,Strength,Transfers,Gait, Activity Tolerance Progress Towards Goals Progressing Toward Goals Assessment Summary Jay increased his ambulation distance today and needed fewer cues for safety with 4WW . PT anticipates pt will be safe to discharge home with assist once medically stable. He may benefit from PT services added to his home health plan to progress strength, improve wound healing, and progress mobility independence/reduce risk of falls. Goals Transfer Goal Independent,Four Wheeled Walker Gait Goal Independent,Four Wheel Walker Gait Distance 200 Days to Meet Goals 3 Frequency of Treatment Frequency Of Treatment Once a Day Treatment Plan Physical Therapy Treatment Plan Transfer Training,Gait Training,Therapeutic Exercise, Balance Retraining,Discharge Planning,Hot or Cold Pack Other Recommendations and Next Treatment gait training with 4WW; Focus transfers; focus on safety with 4WW; sit to stand practice or other functional strengthening Precautions Other Precautions falls Recommendations To Nursing Amount of Assist Needed 1 Person Assist Discharge Recommendations PT Discharge Recommendations Home with Assistance,Home Health Transportation Needs at Discharge Private Vehicle
--- NOTE | 2021-10-28 18:46 | PC.NURSE ---
A&Ox4 but can be forgetful and doesn't seem to quite grasp his condition or treatments. Uses many holistic methods. Got up and walked with Pt today. BLE edema. Stayed most of the day in the chair, refuses to get in bed. SOB with exertion. O2 99 room air. Denies pain. Low sodium diet, heart healthy diet. Page draining yellow urine. Tele: A fib 60-90, PVCs. Refused bath. Call light within reach.
[2021-10-28] MEDS: MELATONIN 3 MG TABLET 6 MG PO (20:24)
[2021-10-28] MEDS: ATORVASTATIN 20 MG TABLET PO (20:24)
[2021-10-29] VITALS (10 sets, daily range): BP systolic 100–133; BP diastolic 59–75; PULSE 51–87; RESP 15–18; TEMP 36.1–36.7; O2SAT 94–100
[2021-10-29] MEDS: LEVOTHYROXINE 125 MCG TABLET PO (06:15)
--- NOTE | 2021-10-29 08:05 | P.PN_ITS ---
Subjective Subjective Date Patient Seen: 10/29/21 Time Patient Seen: 08:06 Interval history: Patient seen in follow-up of AFib and congestive heart failure. No other significant new change. Feeling slightly better today. He is about 800 positive for the last 24 hours. On output. But otherwise no change Exam Vital Signs (past 8 hours): - 10/29/21 04:00 Temperature 98.1 F Pulse Rate 51 L Respiratory Rate 18 Blood Pressure 105/59 L Pulse Oximetry 100 Oxygen Delivery Method Room Air Oxygen Flow Rate 0 Narrative Exam Narrative: Alert smiling male sleeping in no acute distress. Lungs are clear. Heart irregular with no other changes. Extremity slightly improved. Objective Labs Result Diagrams: 10/26/21 05:40 10/28/21 07:25 [facility] Medical History Alcohol abuse Congestive heart failure Depression Esophageal ulceration Essential hypertension GERD (gastroesophageal reflux disease) Hypothyroidism Mixed hyperlipidemia Venous stasis Surgical History Status post appendectomy Social History household members: spouse Smoking Status: Never smoker alcohol intake: never Assessment & Plan Assessment & Plan narrative: Atrial fibrillation. Maybe are issue with his congestive heart failure. Control not adequate but blood pressure still significantly low. We his heart rate has not been below the low 90s and is tacking along at rest today over 100. Not able to increase beta-irlanda due to blood pressure. Will add digoxin. Discussed with ranch hand livestock. Hoping for consult today. Acute congestive systolic heart failure. Prep possibly secondary to his AFib. Certainly worsened over the last several years. His finally more positive on his output. Will continue IV likes is kidneys are cyst apparently handling this and probably will take a few more days now that we have turned the corner for positives and hopefully as we control his AFib things will get better. Would like to have ranch hand livestock see today. Bilateral lower extremity wounds secondary to stasis dermatitis. Seems to be doing well. Continuing wraps. Will continue wound care. Hypothyroidism. Continue on levothyroxine. Hypertension. Patient currently doing okay certainly in the 100s. Will back off on some of his medications see how he does. He understands questions answered. Code status. No code. DVT on heparin. Disposition will see what ranch hand livestock feels and suspect will take a few more days. Hopefully by Thursday will discharge. Time Spent With Patient Critical Care time: I spent a total of [] minutes of critical care time on this patient's care today; this time is exclusive of procedural time.
[2021-10-29] MEDS: POTASSIUM CHLORIDE 20 MEQ TAB 40 MEQ PO (08:41)
[2021-10-29] MEDS: DIGOXIN 500 MCG/2 ML AMPUL IV (08:45)
--- NOTE | 2021-10-29 09:54 | OT.IP.TRT ---
Current Diagnoses Heart failure, unspecified (10/25/21) Occupational Therapy Treatment Note M2 OT-IP Current Condition Start: 10/28/21 15:15 Freq: Status: Active Protocol: Document 10/28/21 15:22 CGR (Rec: 10/28/21 15:45 CGR [id number]) Occupational Therapy Current Condition Current Condition Evaluation Date 10/28/21 Treatment Diagnosis CHF exacerbation Diagnosis Onset Date 10/25/21 M3 OT- IP Subjective and Pain Start: 10/28/21 15:15 Freq: Status: Active Protocol: Document 10/29/21 09:53 [facility] (Rec: 10/29/21 10:00 [facility] [id number]) OT- Subjective Occupational Therapy Visit Type Type Treatment Note Visit Start Time 09:15 Visit Stop Time 09:54 Total Visit Minutes 39 Occupational Therapy Visit Comments Patient Comments Pt's nurse states best for pt to sponge off versus shower at this time. Pt not wanting to sponge off and agreed to go over energy conservation suggestions. Patient/Caregiver Goals TO go home. To be able to socialize more with others. OT Pain Assessment Pain When Pain Assessed At Rest Pain Present Pain Present Denied Pain M4 OT- IP ADL's Start: 10/28/21 15:15 Freq: Status: Active Protocol: Document 10/29/21 09:53 [facility] (Rec: 10/29/21 10:00 [facility] [id number]) OT [id number] Comments OT Self-Feeding Comments Not meal time OT ADL-Grooming Comments OT Grooming Comments Pt not wanting do to at this time. OT ADL-Oral Care Comments Oral Care Comments Pt refused. OT ADL-Dressing Comments OT Dressing Comments Able to show pt a personnel records clerk so able to increase his ease for LB dressing needs and to be able to reach for items. Issued pt a personnel records clerk as pt states is much easier to use than his various sticks with hooks. OT ADL-Toileting Comments OT Toileting Comments Page in place. OT ADL-Bathing Comments OT Bathing Comments Showed pt a picture of tub bench however pt states the tub us too small and that grab bars would be more beneficial at this time for him to get. M5 OT- IP IADL's Start: 10/28/21 15:15 Freq: Status: Active Protocol: Document 10/28/21 15:22 CGR (Rec: 10/28/21 15:45 CGR [id number]) OT-Instrumental Activities of Daily Living Deficits IADL Deficits Identified No Deficits Home Safety Awareness Awareness of Need for Assistance at Home Good Awareness Ability to Problem Solve Emergency Able to Problem Solve Situations Medication Management Medication Management No Deficits Identified Money Management Money Management No Deficits Identified Meal Preparation Meal Preparation Caregiver Provides Assist Minibus Driver Minibus Driver Caregiver Provides Assist Driving Driving Comments Pt states he no longer drives M6 OT- IP Functional Cognition Start: 10/28/21 15:15 Freq: Status: Active Protocol: Document 10/29/21 09:53 [facility] (Rec: 10/29/21 10:00 [facility] [id number]) Cognitive Factors Limiting Selfcare Function Cognitive Comments Cognitive Assessment Comments Pt intact. Able to thoroughly go over energy conservation needs with pt for ADL and mobility needs. M7 OT- IP Mobility and Balance Start: 10/28/21 15:15 Freq: Status: Active Protocol: Document 10/28/21 15:22 CGR (Rec: 10/28/21 15:45 CGR [id number]) OT-Transfer Assessment Sit to and From Stand Sit to and from Stand Standby Assistance,Contact Guard Assistance Transfers Transfer Ability Standby Assistance,Contact Guard Assistance Technique Transfer Destination Chair Transfer Technique Stand Step Pivot Devices Transfer Assistive Devices Gait Belt,4 Wheeled Walker Comments Mobility Comments Pt stood from the chair with CGA to SBA using the 4WW. Pt needs vc for proper use of the breaks with a rollator. Pt ambulates around the room with SBA and poor endurance. OT- Gait Assessment Gait Gait Assistance Required: Standby Assistance,Contact Guard Assist Assistive Devices Assistive Device 4 Wheeled Walker OT- Balance Assessment Sitting Balance and Reactions Static Sitting Balance Ability Good Dynamic Sitting Balance Ability Good M8 OT- IP Objective Assessments Start: 10/28/21 15:15 Freq: Status: Active Protocol: Document 10/28/21 15:22 CGR (Rec: 10/28/21 15:45 R [id number]) OT Gross Range of Motion Upper Extremity Range of Motion Assessment Within Functional Limits OT Strength Upper Extremity Strength Assessment Within Functional Limits Comments Strength Comments 5/5 OT- Coordination Assessment Upper Extremity Finger to Nose Test Within Functional Limits Finger Tapping Test Within Functional Limits OT-Muscle Tone Assessment Muscle Tone WNL Yes OT Sensation Assessment Edema Edema Present Edema Comments generalized edema M9 OT- IP Assessment and Plan Start: 10/28/21 15:15 Freq: Status: Active Protocol: Document 10/29/21 09:53 [facility] (Rec: 10/29/21 10:00 [facility] [id number]) OT Summary Assessment and Plan Potential Rehabilitation Potential Good Analytic Complexity at Evaluation Low Summary OT Impairments Functional Mobility,Dressing, Toileting,Bathing,Toilet Transfers,Shower Transfers, Activity Tolerance Progress Towards Goals Slow Progress due to Activity Tolerance Assessment Summary ABle to thoroughly go over suggestions for energy conservation with pt. Pt would benefit from home health at home when medically stable. Goals Grooming Goal Independent Dressing Goal Independent Toileting Goal Independent Bathing Goal Independent Toilet Transfer Goal Independent Shower Transfer Goal Independent Days to Meet Goals 4 Frequency of Treatment Frequency Of Treatment Once a Day Treatment Plan OT Treatment Plan ADL Training,Functional Mobility,Patient/Family Education,Discharge Planning Discharge Recommendations OT Discharge Recommendations Home with Assistance,Home Health Transportation Needs at Discharge Private Vehicle
[2021-10-29] MEDS: FUROSEMIDE 40 MG/4 ML VIAL 80 MG IV (10:17)
[2021-10-29] MEDS: ASPIRIN EC 81 MG TABLET PO (10:17)
[2021-10-29] MEDS: polyethylene glycoL 3350 17 GM POWD.PACK PO (10:17)
[2021-10-29] MEDS: HEPARIN 5,000 UNIT/ML VIAL 5000 UNIT SUBCUT ×2 (10:17→21:24)
[2021-10-29] MEDS: DOCUSATE 100 MG CAPSULE PO ×2 (10:18→21:25)
[2021-10-29] MEDS: METOPROLOL ER 50 MG TABLET PO (10:18)
[2021-10-29] MEDS: SODIUM CHLORIDE 0.9% FLUSH 10 ML IV ×2 (10:20→21:25)
--- NOTE | 2021-10-29 10:50 | PT.IPTN ---
Current Diagnoses Heart failure, unspecified (10/25/21) Physical Therapy Treatment Note M2 PT-IP Current Condition Start: 10/27/21 14:52 Freq: NEEDED Status: Active Protocol: Document 10/27/21 16:13 AW (Rec: 10/27/21 16:44 AW [id number]) Physical Therapy Current Condition Current Condition Evaluation Date 10/27/21 Treatment Diagnosis CHF exacerbation; BLE wounds; impaired mobility and gait M3 PT-IP Subjective Start: 10/27/21 14:52 Freq: NEEDED Status: Active Protocol: Document 10/29/21 10:50 AB (Rec: 10/29/21 13:16 AB [id number]) Subjective Physical Therapy Visit Type Type Treatment Note Visit Start Time 10:50 Visit Stop Time 11:30 Total Visit Minutes 40 Number of HUMAN RESOURCE OFFICER Visits 0 Physical Therapy Visit Comments Patient Comments agreeable to do PT M4 PT-IP Mobility and Gait Start: 10/27/21 14:52 Freq: NEEDED Status: Active Protocol: Document 10/29/21 10:50 AB (Rec: 10/29/21 13:16 AB [id number]) PT-Transfer Assessment Sit to and From Stand Sit to and from Stand Contact Guard Assistance Equipment Transfer Assistive Device Gait Belt,4 Wheeled Walker Orthotic/Prosthetic Devices or Brace: No Comments Mobility Comments pt sitting on chair and agreed to do PT. completed sit to stand CGA. required 2 attempts to stand up with pt presenting with BLE sliding forward during pushing to stand. pt able to maintain standing using 4WW for support SBA while assisted with gown management. pt ambulated in the hallway ~ 150 ft using 4WW SBA to CGA. Pt with incidences x 3 of running into things on the R. pt stated that his R eye is not working good. pt sat on 4WW to rest. O2 sat checked: 98% AR 84. pt SBA for sit to stand from the 4WW and walked back to his room ~ 150 ft using 4WW SBA to CGA. pt sat back on chair. positioned on chair. call light and table placed within reach. Gait Assessment Gait Gait Assistance Required: Standby Assistance,Contact Guard Assist Distance (Feet) 150 Able to Maintain Weight Bearing Status Yes During Gait Assistive Devices Assistive Device Gait Belt,Front Wheeled Walker Orthotic/Prosthetic Devices or Brace: No Gait Deviations General Gait Pattern Decreased Stride Length, Decreased Feet Clearance Factors Limiting Gait Function Factors Limiting Gait Function Decreased Activity Tolerance, Decreased Strength,Poor Balance,Poor Safety Awareness, Respiratory Distress M5 PT-IP Objective Assessments Start: 10/27/21 14:52 Freq: NEEDED Status: Active Protocol: Document 10/27/21 16:13 AW (Rec: 10/27/21 16:44 AW [id number]) Orientation Orientation/Cognition Level of Alertness Alert Orientation Name,Day of Week,Place, Situation Language Function Ability Hard of Hearing Safety Awareness Decreased Safety Awareness Gross Range of Motion Lower Extremity ROM Assessment Within Functional Limits Impairments WFL but limited due to BLE dressings from midfoot to calf covered by coban. Strength Lower Extremity Strength Assessment Bilaterally Impaired Hip 4-/5 Knee 4/5 Ankle 4+/5 DF Sensation Assessment Comments Sensation Comments Difficult to assess due to wound dressings Muscle Tone Muscle Tone WNL Yes Other Assessments Other Other Assessments BLE wounds are wrapped midfoot to below the knee and covered with coban. M6 PT-IP Treatment Start: 10/27/21 14:52 Freq: NEEDED Status: Active Protocol: Document 10/29/21 10:50 AB (Rec: 10/29/21 13:16 AB [id number]) Physical Therapy Treatment Education Education Provided Safety M7 PT-IP Assessment and Plan Start: 10/27/21 14:52 Freq: NEEDED Status: Active Protocol: Document 10/29/21 10:50 AB (Rec: 10/29/21 13:16 AB [id number]) PT Summary Assessment and Plan Potential Rehabilitation Potential Good Summary Impairments Pain,ROM,Strength,Balance, Coordination,Sensation,Tone, Cognition,Bed Mobility, Transfers,Gait,Activity Tolerance Progress Towards Goals Slow Progress due to Medical Issues,Slow Progress due to Activity Tolerance Assessment Summary Pt progressing with mobility and requirng SBA to CGA with use of 4WW. pt lives with his spouse and plans to go home with spouse to assist as needed. pt will benefit from HHPT to improve overall strength and mobility independence. Goals Transfer Goal Independent,Four Wheeled Walker Gait Goal Independent,Four Wheel Walker Gait Distance 200 Days to Meet Goals 3 Frequency of Treatment Frequency Of Treatment Once a Day Treatment Plan Physical Therapy Treatment Plan Transfer Training,Gait Training,Therapeutic Exercise, Balance Retraining,Discharge Planning,Hot or Cold Pack Precautions Other Precautions falls Recommendations To Nursing Amount of Assist Needed 1 Person Assist Discharge Recommendations PT Discharge Recommendations Home with Assistance,Home Health Transportation Needs at Discharge Private Vehicle
--- NOTE | 2021-10-29 11:36 | CM.DPNOTE ---
Nancy KANG is following this patient with home health services. When pt. is discharged, needs a resume order. Leilani Beavers CM Assist.
--- NOTE | 2021-10-29 11:56 | PC.NURSE ---
Pt up in chair from start of shift. Taking PO well. asking questions about his BLE dressing. They have been cared for by [facility]. 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 Gait was steady, occasional cueing. Pt presently in chair, eyes closed , RR even and unlaboured.
[2021-10-29] MEDS: ACETAMINOPHEN 325 MG TABLET 650 MG PO (14:44)
[2021-10-29] MEDS: DIGOXIN 500 MCG/2 ML AMPUL 250 MCG IV (14:57)
--- NOTE | 2021-10-29 15:21 | CM.DPC ---
DCP Continued: CM called Nancy KANG and discussed patient. Nancy KANG agreed to keep working with the patient at DC they will just need DC summary and a call letting them know that patient is DC. department will send needed DC information when medically stable for DC. Perri Birmingham RNreading professor
[2021-10-29] MEDS: FUROSEMIDE 40 MG/4 ML VIAL IV (21:24)
[2021-10-29] MEDS: MELATONIN 3 MG TABLET 6 MG PO (21:25)
[2021-10-29] MEDS: ATORVASTATIN 20 MG TABLET PO (21:25)
[2021-10-30] VITALS (8 sets, daily range): BP systolic 108–130; BP diastolic 53–77; PULSE 55–89; RESP 18–20; TEMP 36.5–37.1; O2SAT 96–100
[2021-10-30] MEDS: LEVOTHYROXINE 125 MCG TABLET PO (06:06)
--- NOTE | 2021-10-30 06:44 | PC.NURSE ---
late entry: Provider Dr Hoover was paged and a return call was made at [phone] asking if second dose of 250 mcg Digoxin should be held due to patients decreased HR. When using pulse ox machine, HR was steady in the high 40's and would get up to 62. This RN auscultated the Apical pulse for one minute and the rate was 57. Telephone orders were given to hold Digoxin dose and it will be reassessed in the morning.
[2021-10-30 06:58] LABS: BUN Creatinine Ratio 15.9 (6-22); Blood Urea Nitrogen 18 mg/dL (9-20); Calcium 9.2 mg/dL (8.4-10.2); Carbon Dioxide 36 mmol/L (22-32); Chloride 98 mmol/L (98-107); Estimated Glomerular Filt Rate > 60.0 mL/min (>60); Glucose 88 mg/dL (80-110); HEMOLYSIS 15 (0-50); Potassium 3.4 mmol/L (3.4-5.1); Sodium 134 mmol/L (137-145)
[2021-10-30 07:07] LABS: NT-proBNP (BNP-Adult 18+) 3780 pg/mL (<450)
[2021-10-30] MEDS: POTASSIUM CHLORIDE 20 MEQ TAB 40 MEQ PO ×2 (08:35→13:12)
[2021-10-30] MEDS: FUROSEMIDE 40 MG/4 ML VIAL IV ×2 (08:35→20:57)
[2021-10-30] MEDS: HEPARIN 5,000 UNIT/ML VIAL 5000 UNIT SUBCUT ×2 (08:35→20:57)
[2021-10-30] MEDS: ASPIRIN EC 81 MG TABLET PO (08:35)
[2021-10-30] MEDS: DOCUSATE 100 MG CAPSULE PO ×2 (08:35→20:56)
[2021-10-30] MEDS: SODIUM CHLORIDE 0.9% FLUSH 10 ML IV ×2 (08:36→20:59)
[2021-10-30] MEDS: polyethylene glycoL 3350 17 GM POWD.PACK PO ×2 (08:36→21:00)
[2021-10-30] MEDS: SPIRONOLACTONE 25 MG TABLET PO (08:37)
[2021-10-30] MEDS: METOPROLOL ER 50 MG TABLET PO (08:57)
--- NOTE | 2021-10-30 11:13 | OT.IP.TRT ---
Current Diagnoses Heart failure, unspecified (10/25/21) Occupational Therapy Treatment Note M2 OT-IP Current Condition Start: 10/28/21 15:15 Freq: Status: Active Protocol: Document 10/28/21 15:22 [facility] (Rec: 10/28/21 15:45 [facility] [id number]) Occupational Therapy Current Condition Current Condition Evaluation Date 10/28/21 Treatment Diagnosis CHF exacerbation Diagnosis Onset Date 10/25/21 M3 OT- IP Subjective and Pain Start: 10/28/21 15:15 Freq: Status: Active Protocol: Document 10/30/21 12:11 [facility] (Rec: 10/30/21 12:16 [facility] [id number]) OT- Subjective Occupational Therapy Visit Type Type Treatment Note Visit Start Time 10:32 Visit Stop Time 11:13 Total Visit Minutes 41 Occupational Therapy Visit Comments Patient Comments Pt wanting to sponge off. Pt also wondering when his compression bandages would be changed out, nursing aware. Patient/Caregiver Goals To go home. OT Pain Assessment Pain When Pain Assessed At Rest Pain Present Pain Present Pain Reported M4 OT- IP ADL's Start: 10/28/21 15:15 Freq: Status: Active Protocol: Document 10/30/21 12:11 [facility] (Rec: 10/30/21 12:16 [facility] [id number]) OT [id number] Comments OT Self-Feeding Comments Not meal time OT ADL-Grooming Comments OT Grooming Comments Pt able to do while seated. OT ADL-Toileting Comments OT Toileting Comments Notified nursing that ro catheter positioning needing to be changed as it was pulling on him. OT ADL-Bathing Bathing Type Bathing Type Sponge Bath General Evaluation Bathing Ability Maximal Assistance Comments OT Bathing Comments Pt needing extensive assist for sponge bath and assist to help put lotion on him. M5 OT- IP IADL's Start: 10/28/21 15:15 Freq: Status: Active Protocol: Document 10/28/21 15:22 [facility] (Rec: 10/28/21 15:45 [facility] [id number]) OT-Instrumental Activities of Daily Living Deficits IADL Deficits Identified No Deficits Home Safety Awareness Awareness of Need for Assistance at Home Good Awareness Ability to Problem Solve Emergency Able to Problem Solve Situations Medication Management Medication Management No Deficits Identified Money Management Money Management No Deficits Identified Meal Preparation Meal Preparation Caregiver Provides Assist Dip Tube Assembler Machine Dip Tube Assembler Machine Caregiver Provides Assist Driving Driving Comments Pt states he no longer drives M6 OT- IP Functional Cognition Start: 10/28/21 15:15 Freq: Status: Active Protocol: Document 10/30/21 12:11 [facility] (Rec: 10/30/21 12:16 [facility] [id number]) Cognitive Factors Limiting Selfcare Function Cognitive Comments Cognitive Assessment Comments Intact M7 OT- IP Mobility and Balance Start: 10/28/21 15:15 Freq: Status: Active Protocol: Document 10/30/21 12:11 [facility] (Rec: 10/30/21 12:16 [facility] [id number]) OT- Balance Assessment Sitting Balance and Reactions Static Sitting Balance Ability Good Dynamic Sitting Balance Ability Good M8 OT- IP Objective Assessments Start: 10/28/21 15:15 Freq: Status: Active Protocol: Document 10/28/21 15:22 [facility] (Rec: 10/28/21 15:45 [facility] [id number]) OT Gross Range of Motion Upper Extremity Range of Motion Assessment Within Functional Limits OT Strength Upper Extremity Strength Assessment Within Functional Limits Comments Strength Comments 5/5 OT- Coordination Assessment Upper Extremity Finger to Nose Test Within Functional Limits Finger Tapping Test Within Functional Limits OT-Muscle Tone Assessment Muscle Tone WNL Yes OT Sensation Assessment Edema Edema Present Edema Comments generalized edema M9 OT- IP Assessment and Plan Start: 10/28/21 15:15 Freq: Status: Active Protocol: Document 10/30/21 12:11 [facility] (Rec: 10/30/21 12:16 [facility] [id number]) OT Summary Assessment and Plan Potential Rehabilitation Potential Good Analytic Complexity at Evaluation Low Summary OT Impairments Functional Mobility,Dressing, Toileting,Bathing,Toilet Transfers,Shower Transfers, Activity Tolerance Progress Towards Goals Progressing Toward Goals Assessment Summary Pt able to participate in sponge bathing today and looking to go home. Pt would benefit from home health. Goals Grooming Goal Independent Dressing Goal Independent Toileting Goal Independent Bathing Goal Independent Toilet Transfer Goal Independent Shower Transfer Goal Independent Days to Meet Goals 7 Frequency of Treatment Frequency Of Treatment Once a Day Treatment Plan OT Treatment Plan ADL Training,Functional Mobility,Patient/Family Education,Discharge Planning Discharge Recommendations OT Discharge Recommendations Home with Assistance,Home Health Transportation Needs at Discharge Private Vehicle
--- NOTE | 2021-10-30 11:46 | PT.IPTN ---
Current Diagnoses Heart failure, unspecified (10/25/21) Physical Therapy Treatment Note M2 PT-IP Current Condition Start: 10/27/21 14:52 Freq: NEEDED Status: Active Protocol: Document 10/30/21 11:24 SP (Rec: 10/30/21 13:36 SP [id number]) Physical Therapy Current Condition Current Condition Evaluation Date 10/27/21 Treatment Diagnosis CHF exacerbation; BLE wounds; impaired mobility and gait M3 PT-IP Subjective Start: 10/27/21 14:52 Freq: NEEDED Status: Active Protocol: Document 10/30/21 11:24 SP (Rec: 10/30/21 13:36 SP [id number]) Subjective Physical Therapy Visit Type Type Treatment Note Visit Start Time 11:23 Visit Stop Time 11:46 Total Visit Minutes 23 Number of GRANITE WORKER Visits 1 Physical Therapy Visit Comments Patient Comments Pt wanting to walk in hallway. Pt requested reporting to nurse his request for with BLE dressing changes, I usually get dressings changed on Wednesdays. Patient Goals Return home with resumed services Therapy Pain Assessment Pain When Pain Assessed During Mobility Pain Present Pain Present Denied Pain M4 PT-IP Mobility and Gait Start: 10/27/21 14:52 Freq: NEEDED Status: Active Protocol: Document 10/30/21 11:24 SP (Rec: 10/30/21 13:36 SP [id number]) PT-Transfer Assessment Sit to and From Stand Sit to and from Stand Standby Assistance,Contact Guard Assistance,Use of Upper Extremities Equipment Transfer Assistive Device Gait Belt,4 Wheeled Walker Orthotic/Prosthetic Devices or Brace: No Transfers Transfer Destination Chair Transfer Technique pt ambulated using 4WW Transfer Ability Level of Assist Standby Assistance,Contact Guard Assistance Comments Mobility Comments Pt sitting reclined in chair when arrived. GRANITE WORKER assisted lowering leg rests, instructed ed safety brake mgt carryover pre stand/sit. Sit>stand SBA with cues for brake mgt prior stand for safety. Progressed hallway gait w/ personal 4WW approx 170 ft w/ 2 stop stand rests before required seated rest, positioned 4WW at wall then pivot to sit, cued for brake mgt prior to sit for safety as well. I know but it 's against the wall. Pt rested 3 min for breath and tiring recovery. Cued maintain brake mgt until full standing , pt tends to squeeze brake while standing then swivel 4WW around himself before walking . Ed for turning around facing locked 4WW for increased stability and decreased risk of falling in case loose balance moving 4WW around himself, I'll be alright. Pt walked back to room approx 100 ft 1 stop stand rest SBA w 4WW. Pt returned to chair, cued for backing up fully with 4WW and brake mgt prior to sit. SBA, stable. Assisted pt with leg rest elevation and blanket request, all needs and call light in reach, provided chair alarm due to decrease safety awareness. GRANITE WORKER educated pt safety awareness fall risk with not proper 4WW brake mgt and think FWW would be beneficial, pt stated didn't want a fWW, has done fine with 4WW, will try use brakes more . GRANITE WORKER notified DIRECTOR OF PSYCHIATRY catheter need emptying and pt request BLE dressign change, she stated will let nurse know. DIRECTOR OF PSYCHIATRY in room when left. Gait Assessment Gait Gait Assistance Required: Standby Assistance Distance (Feet) 170 Able to Maintain Weight Bearing Status Yes During Gait Assistive Devices Assistive Device Gait Belt,4 Wheeled Walker Orthotic/Prosthetic Devices or Brace: No Gait Deviations General Gait Pattern Decreased Stride Length, Decreased Feet Clearance Factors Limiting Gait Function Factors Limiting Gait Function Decreased Activity Tolerance, Decreased Strength,Poor Balance,Poor Safety Awareness, Respiratory Distress Comments Gait Comments Receiprocal gait, cued body closer to 4WW, min cues for brake mgt during transfers for safety, good positioning against wall for safety stability when sat on 4WW, rest. Pt maintained Mid high 90s SaO2 during gait/ throughout tx, requires increased time for gait and stop stand rests for tiring recovery. Stair Climbing Assessment Comments Stair Climbing Comments Pt has ramp at home. PT-Balance Assessment Sitting Balance and Reactions Static Sitting Balance Ability Good Dynamic Sitting Balance Ability Good Standing Balance and Reactions Static Standing Balance Ability Good Dynamic Standing Balance Ability Fair Device Used 4WW M5 PT-IP Objective Assessments Start: 10/27/21 14:52 Freq: NEEDED Status: Active Protocol: Document 10/27/21 16:13 AW (Rec: 10/27/21 16:44 AW [id number]) Orientation Orientation/Cognition Level of Alertness Alert Orientation Name,Day of Week,Place, Situation Language Function Ability Hard of Hearing Safety Awareness Decreased Safety Awareness Gross Range of Motion Lower Extremity ROM Assessment Within Functional Limits Impairments WFL but limited due to BLE dressings from midfoot to calf covered by coban. Strength Lower Extremity Strength Assessment Bilaterally Impaired Hip 4-/5 Knee 4/5 Ankle 4+/5 DF Sensation Assessment Comments Sensation Comments Difficult to assess due to wound dressings Muscle Tone Muscle Tone WNL Yes Other Assessments Other Other Assessments BLE wounds are wrapped midfoot to below the knee and covered with coban. M6 PT-IP Treatment Start: 10/27/21 14:52 Freq: NEEDED Status: Active Protocol: Document 10/30/21 11:24 SP (Rec: 10/30/21 13:36 SP [id number]) Physical Therapy Treatment Education Education Provided Safety Other Treatments Other Treatment Performed Continued to reinforce 4WW safety especially the need to set brakes prior to sitting and standing from the seat. M7 PT-IP Assessment and Plan Start: 10/27/21 14:52 Freq: NEEDED Status: Active Protocol: Document 10/30/21 11:24 SP (Rec: 10/30/21 13:36 SP [id number]) PT Summary Assessment and Plan Potential Rehabilitation Potential Good Status of Condition at Evaluation Evolving Summary Impairments Pain,ROM,Strength,Balance, Coordination,Sensation,Tone, Cognition,Bed Mobility, Transfers,Gait,Activity Tolerance Progress Towards Goals Progressing Toward Goals,Slow Progress due to Activity Tolerance Assessment Summary Pt progressing with mobility and requirng SBA with use of 4WW. Pt tends to direct his own care, lives with his spouse but she works and plans to go home with spouse to assist as needed. Pt refused recommendation use of FWW for safety demonstrtated lack of 4WW brake mgt throughout tx. Pt will benefit from HHPT to improve overall strength and mobility independence. Goals Transfer Goal Independent,Four Wheeled Walker Gait Goal Independent,Four Wheel Walker Gait Distance 200 Days to Meet Goals 3 Frequency of Treatment Frequency Of Treatment Once a Day Treatment Plan Physical Therapy Treatment Plan Transfer Training,Gait Training,Therapeutic Exercise, Balance Retraining,Discharge Planning,Hot or Cold Pack Other Recommendations and Next Treatment Gait training with 4WW; focus Focus on safety transfers with 4WW; sit to stand practice or other functional strengthening. Precautions Other Precautions falls Recommendations To Nursing Amount of Assist Needed 1 Person Assist Discharge Recommendations PT Discharge Recommendations Home with Assistance,Home Health Transportation Needs at Discharge Private Vehicle
[2021-10-30] MEDS: MAGNESIUM HYDROXIDE 30 ML UDC PO (13:10)
--- NOTE | 2021-10-30 13:12 | CM.DPC ---
DCP Cont: Spoke to [facility] and gave update that patient is still here. P.T. encouraged to add home health P.T, and O.T. to nursing upon resumption, for conditioning. Will add to resumption orders. Plan is home when stable, but not yet medically ready. Provider indicated the possibility of having computer numerical control programmer see patient here. P: DCP to continue to follow. Plan is home when he is medically stable with the resumption of [facility], will add P.T, and O.T, to nursing. Brandie Box RN/Mop Maker
--- NOTE | 2021-10-30 13:38 | P.PN_ITS ---
Subjective Subjective Date Patient Seen: 10/30/21 Time Patient Seen: 13:39 Interval history: Patient seen in follow-up of AFib in congestive heart failure. Patient has improved rate control and is feeling better. Feels more energetic. His not have any chest pain or shortness of breath. Has not really been mobilizing a lot but is getting up and feeling stronger. Output has been good the last 6 hours. Exam Vital Signs (past 8 hours): - 10/30/21 08:00 10/30/21 08:57 Temperature 98.2 F Pulse Rate 82 82 Respiratory Rate 19 Blood Pressure 127/68 126/68 Pulse Oximetry 96 Oxygen Delivery Method Room Air Oxygen Flow Rate 0 Narrative Exam Narrative: Alert elderly male in no acute distress sitting in chair lungs are clear heart is irregular but controlled rate today. Abdomen is soft positive bowel sounds nontender. Extremities with decreased edema. Objective Labs Result Diagrams: 10/26/21 05:40 10/30/21 06:10 Labs: Laboratory Results - last 24 hr 10/30/21 10/30/21 06:10 06:10 Sodium 134 L Potassium 3.4 Chloride 98 Carbon Dioxide 36 H BUN 18 Creatinine 1.13 Estimated GFR > 60.0 BUN/Creatinine Ratio 15.9 Glucose 88 Calcium 9.2 NT-Pro-B Natriuret Pep 3780 H [facility] Medical History Alcohol abuse Congestive heart failure Depression Esophageal ulceration Essential hypertension GERD (gastroesophageal reflux disease) Hypothyroidism Mixed hyperlipidemia Venous stasis Surgical History Status post appendectomy Social History household members: spouse Smoking Status: Never smoker alcohol intake: never Assessment & Plan Assessment & Plan narrative: Atrial fibrillation. Actually much better control. Will continue digoxin low- dose metoprolol and will follow from there. He seems to be doing much better. Congestive heart failure acute systolic may be secondary to AFib hopefully this will improve as we get out away. Will need Cardiology consult as outpatient. Appreciate Cardiology help now. Will continue spironolactone Lasix and low-dose lisinopril and see how he does. Hopefully we can increase in the future. But is output over the last 6 hours has been better. Weight is been stable were going to have to follow that. Bilateral lower extremity wounds. His dermatitis was evaluated today wounds were redressed. Will need to continue outpatient therapy but hopefully we can keep his legs from swelling. Discussed the importance of his care. Hypothyroidism stable. No change in dose. Hypertension. Stable. Code status no code. DVT on heparin Disposition. Seems to be changing course. If stable tomorrow and discontinue Page and follow would keep Page in today for output to evaluate what exactly were getting in then hopefully home on Thursday. 35 minute spent with patient discussing with family dictating in orders Time Spent With Patient Critical Care time: I spent a total of [] minutes of critical care time on this patient's care today; this time is exclusive of procedural time.
[2021-10-30 14:32] LABS: BUN Creatinine Ratio 14.5 (6-22); Blood Urea Nitrogen 17 mg/dL (9-20); Calcium 9.6 mg/dL (8.4-10.2); Carbon Dioxide 35 mmol/L (22-32); Chloride 94 mmol/L (98-107); Estimated Glomerular Filt Rate > 60.0 mL/min (>60); Glucose 121 mg/dL (80-110); HEMOLYSIS < 15 (0-50); Potassium 3.6 mmol/L (3.4-5.1); Sodium 135 mmol/L (137-145)
[2021-10-30] MEDS: DIGOXIN 0.125 MG TABLET 0.25 MG PO (18:35)
[2021-10-30] MEDS: ATORVASTATIN 20 MG TABLET PO (20:56)
[2021-10-30] MEDS: MELATONIN 3 MG TABLET 6 MG PO (20:57)
[2021-10-30] MEDS: lisinopriL 5 MG TABLET 2.5 MG PO (21:00)
[2021-10-31] VITALS (9 sets, daily range): BP systolic 111–137; BP diastolic 55–84; PULSE 64–89; RESP 16–20; TEMP 36.2–36.9; O2SAT 97–100
[2021-10-31] MEDS: LEVOTHYROXINE 125 MCG TABLET PO (06:09)
[2021-10-31] MEDS: ASPIRIN EC 81 MG TABLET PO (08:26)
[2021-10-31] MEDS: HEPARIN 5,000 UNIT/ML VIAL 5000 UNIT SUBCUT ×2 (08:26→20:24)
[2021-10-31] MEDS: DOCUSATE 100 MG CAPSULE PO ×2 (08:26→20:27)
[2021-10-31] MEDS: FUROSEMIDE 40 MG/4 ML VIAL IV ×2 (08:26→20:25)
[2021-10-31] MEDS: lisinopriL 5 MG TABLET 2.5 MG PO (08:27)
[2021-10-31] MEDS: SODIUM CHLORIDE 0.9% FLUSH 10 ML IV ×2 (08:27→20:24)
[2021-10-31] MEDS: SPIRONOLACTONE 25 MG TABLET PO (08:27)
[2021-10-31] MEDS: POTASSIUM CHLORIDE 20 MEQ TAB 40 MEQ PO (08:27)
[2021-10-31] MEDS: polyethylene glycoL 3350 17 GM POWD.PACK PO ×2 (08:27→20:24)
[2021-10-31] MEDS: METOPROLOL ER 50 MG TABLET PO (08:30)
[2021-10-31] MEDS: MAGNESIUM HYDROXIDE 30 ML UDC PO (08:45)
[2021-10-31] MEDS: ACETAMINOPHEN 325 MG TABLET 650 MG PO (08:48)
--- NOTE | 2021-10-31 08:55 | PM.PN.1 ---
Subjective Subjective Date Patient Seen: 10/31/21 Time Patient Seen: 08:55 Interval history: CC: I feel ok good continued weight loss with diuresis will discontinue ro today and encourage mobilization continue diuresis encourage to walk around with assistance no BM this admission per pt Exam Vital Signs (past 8 hours): - 10/31/21 05:45 10/31/21 08:30 Temperature 98.0 F Pulse Rate 80 89 Respiratory Rate 18 Blood Pressure 137/84 133/62 Pulse Oximetry 98 Oxygen Delivery Method Room Air Oxygen Flow Rate 0 Narrative Exam Narrative: sitting in chair eating breakfast with maegan MATUTE Other: normal appearance Resp Other: unlabored breathing clear to auscultation bilaterally Cardio Other: regular rate, S1/S2, pitting edema 2+ up to knees with compression wrap GI Other: soft nontender Other: ro in place putting out dark urine Neuro Other: 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 to communicate moving all extremities Psych Other: alert oriented interactive Objective Labs Result Diagrams: 10/26/21 05:40 10/30/21 14:02 Labs: Laboratory Results - last 24 hr 10/30/21 14:02 Sodium 135 L Potassium 3.6 Chloride 94 L Carbon Dioxide 35 H BUN 17 Creatinine 1.17 Estimated GFR > 60.0 BUN/Creatinine Ratio 14.5 Glucose 121 H Calcium 9.6 PFSH Medical History Alcohol abuse Congestive heart failure Depression Esophageal ulceration Essential hypertension GERD (gastroesophageal reflux disease) Hypothyroidism Mixed hyperlipidemia Venous stasis Surgical History Status post appendectomy Social History household members: spouse Smoking Status: Never smoker alcohol intake: never Assessment & Plan Assessment & Plan narrative: #Atrial fibrillation doing well continue meds #Congestive heart failure acute systolic Will need Cardiology consult as outpatient.? Appreciate Cardiology help now.? Continue spironolactone Lasix and low-dose lisinopril and see how he does.?Weight decreasing continue to diurese #Bilateral lower extremity wounds Continue wound care and wraps.? Will need to continue outpatient therapy but hopefully we can keep his legs from swelling. #Hypothyroidism continue home regimen #Hypertension Stable. continue Code status no code.? DVT on heparin Disposition.?will DC ro and attempt for bowel movement today. maybe dispo home tomorrow if he does well. 35 minute spent with patient documenting placing orders and following up throughout the day Time Spent With Patient Critical Care time: I spent a total of [] minutes of critical care time on this patient's care today; this time is exclusive of procedural time.
--- NOTE | 2021-10-31 11:31 | PT.IPTN ---
Current Diagnoses Heart failure, unspecified (10/25/21) Physical Therapy Treatment Note M2 PT-IP Current Condition Start: 10/27/21 14:52 Freq: NEEDED Status: Active Protocol: Document 10/30/21 11:24 SP (Rec: 10/30/21 13:36 SP [id number]) Physical Therapy Current Condition Current Condition Evaluation Date 10/27/21 Treatment Diagnosis CHF exacerbation; BLE wounds; impaired mobility and gait M3 PT-IP Subjective Start: 10/27/21 14:52 Freq: NEEDED Status: Active Protocol: Document 10/31/21 11:07 [facility] (Rec: 10/31/21 12:35 [facility] [id number]) Subjective Physical Therapy Visit Type Type Treatment Note Visit Start Time 11:07 Visit Stop Time 11:31 Total Visit Minutes 24 Number of DRY TRANSFER MAN Visits 2 Physical Therapy Visit Comments Patient Comments Pt agreeable to ambulate in hallway. M4 PT-IP Mobility and Gait Start: 10/27/21 14:52 Freq: NEEDED Status: Active Protocol: Document 10/31/21 11:07 [facility] (Rec: 10/31/21 12:35 [facility] [id number]) PT-Transfer Assessment Sit to and From Stand Sit to and from Stand Contact Guard Assistance,1 Person Assistance,Use of Upper Extremities Equipment Transfer Assistive Device Gait Belt,4 Wheeled Walker Orthotic/Prosthetic Devices or Brace: No Transfers Transfer Destination Chair Transfer Technique pt ambulated using 4WW Transfer Ability Level of Assist Standby Assistance,Contact Guard Assistance Comments Mobility Comments Pt in chair upon arrival from therapy. CGa and cues for brake application for sit<> stand. Pt then ambulated ~180 ft w/ 4WW and CGA. He has decreased stride and foto clearance and wide based gait. He then pushed 4WW into wall and turned around to sit, w/ cues again needed for brake application. Pt took ~5 min rest break and 02 98-99%. Following seated rest break pt ambulated additional 180 ft back to room w/ FWW and trasferred back to chair CGA. Pt left in chair w/ all needs in reach and reporting fatigue . Gait Assessment Gait Gait Assistance Required: Standby Assistance,Contact Guard Assist,1 Person Assist Distance (Feet) 180 Able to Maintain Weight Bearing Status Yes During Gait Assistive Devices Assistive Device Gait Belt,4 Wheeled Walker Orthotic/Prosthetic Devices or Brace: No Gait Deviations General Gait Pattern Decreased Stride Length, Decreased Feet Clearance,Wide Based Gait Factors Limiting Gait Function Factors Limiting Gait Function Decreased Activity Tolerance, Decreased Strength,Poor Balance,Poor Safety Awareness, Respiratory Distress Comments Gait Comments Please refer to mobility section for details. Pt still requiring cues for brake application on 4WW. Stair Climbing Assessment Comments Stair Climbing Comments Pt has ramp at home. PT-Balance Assessment Sitting Balance and Reactions Static Sitting Balance Ability Good Dynamic Sitting Balance Ability Good Standing Balance and Reactions Static Standing Balance Ability Good Dynamic Standing Balance Ability Fair Device Used 4WW M5 PT-IP Objective Assessments Start: 10/27/21 14:52 Freq: NEEDED Status: Active Protocol: Document 10/27/21 16:13 AW (Rec: 10/27/21 16:44 AW [id number]) Orientation Orientation/Cognition Level of Alertness Alert Orientation Name,Day of Week,Place, Situation Language Function Ability Hard of Hearing Safety Awareness Decreased Safety Awareness Gross Range of Motion Lower Extremity ROM Assessment Within Functional Limits Impairments WFL but limited due to BLE dressings from midfoot to calf covered by coban. Strength Lower Extremity Strength Assessment Bilaterally Impaired Hip 4-/5 Knee 4/5 Ankle 4+/5 DF Sensation Assessment Comments Sensation Comments Difficult to assess due to wound dressings Muscle Tone Muscle Tone WNL Yes Other Assessments Other Other Assessments BLE wounds are wrapped midfoot to below the knee and covered with coban. M6 PT-IP Treatment Start: 10/27/21 14:52 Freq: NEEDED Status: Active Protocol: Document 10/31/21 11:07 KS (Rec: 10/31/21 12:35 KS [id number]) Physical Therapy Treatment Education Education Provided Safety Other Treatments Other Treatment Performed Continued to reinforce 4WW safety especially the need to set brakes prior to sitting and standing from the seat. M7 PT-IP Assessment and Plan Start: 10/27/21 14:52 Freq: NEEDED Status: Active Protocol: Document 10/31/21 11:07 [facility] (Rec: 10/31/21 12:35 KS [id number]) PT Summary Assessment and Plan Potential Rehabilitation Potential Good Status of Condition at Evaluation Evolving Summary Impairments Pain,ROM,Strength,Balance, Coordination,Sensation,Tone, Cognition,Bed Mobility, Transfers,Gait,Activity Tolerance Progress Towards Goals Progressing Toward Goals,Slow Progress due to Activity Tolerance Assessment Summary Pt continues to require SBA to CGA for transfers and ambulation w/ 4WW, but requires frequent cues for brake application. He ambulated `180 ft before needing 5 min seated rest break and O2 was 98-99%. Pt will benefit from HHPT to improve safety awareness, activity tolerance, and strength and balance. Goals Transfer Goal Independent,Four Wheeled Walker Gait Goal Independent,Four Wheel Walker Gait Distance 200 Days to Meet Goals 3 Frequency of Treatment Frequency Of Treatment Once a Day Treatment Plan Physical Therapy Treatment Plan Transfer Training,Gait Training,Therapeutic Exercise, Balance Retraining,Discharge Planning,Hot or Cold Pack Other Recommendations and Next Treatment Gait training with 4WW; focus Focus on safety transfers with 4WW; sit to stand practice or other functional strengthening. Precautions Other Precautions falls Recommendations To Nursing Amount of Assist Needed 1 Person Assist Discharge Recommendations PT Discharge Recommendations Home with Assistance,Home Health Transportation Needs at Discharge Private Vehicle
--- NOTE | 2021-10-31 14:39 | OT.IPNOTE ---
Attempted to see pt for OT. Pt just wanting OT to hand him pillow so able to lean back and sleep in the recliner. To check on the pt tomorrow.
[2021-10-31] MEDS: BISACODYL 10 MG SUPP PR (15:00)
[2021-10-31] MEDS: LACTULOSE 20 GM/30 ML SOLUTION PO (16:00)
[2021-10-31] MEDS: DIGOXIN 0.125 MG TABLET 0.25 MG PO (18:00)
--- NOTE | 2021-10-31 19:35 | PC.NURSE ---
Pt A&Ox3, VSS, afebrile on RA. Tele remains aflutter, afib, w/ bigeminy and PVC's. Pt ambulating short distances today in the [place], able to walk around nurse's station and back. MD Padron at bedside this a.m., jia dc'd per orders as patient weight decreasing. Pt still with edema +2 from torso to BLE's. Dressing to LE's c/d/i.He is able to void without difficulty this evening. Still c/o constipation > 6days Given Miralax, colace, MOM, bisacodyl suppository, Lactualose without results. He continues to eat prunes with meals. No impaction or stool felt with suppository. Endorsed to oncoming shift.
[2021-10-31] MEDS: MELATONIN 3 MG TABLET 6 MG PO (20:23)
[2021-10-31] MEDS: BISACODYL 5 MG TABLET 10 MG PO (20:23)
[2021-10-31] MEDS: ATORVASTATIN 20 MG TABLET PO (20:26)
[2021-11-01 00:15] VITALS: BP 136/69; PULSE 83; RESP 18; TEMP 36.5; O2SAT 97
[2021-11-01 05:18] VITALS: BP 127/81; PULSE 67; RESP 18; TEMP 36.4; O2SAT 98
[2021-11-01] MEDS: LEVOTHYROXINE 125 MCG TABLET PO (05:48)
--- NOTE | 2021-11-01 08:28 | PM.DS.1 ---
History of Present Illness History of Present Illness Date Patient Seen: 11/01/21 Time Patient Seen: 08:29 Date of Onset of Symptoms: 10/17/21 Chief complaint: Fluid retention Narrative: please see history and physical dictated by Dr. Barajas Discharge Providers Provider Date of admission: 10/25/21 15:23 Discharge Date: 11/01/21 Primary care physician: Zackary Hoover MD Consults: 10/25/21 21:04 Consult to Physician Routine Comment: Consulting Provider: Olivia Richter Reason for consultation: Perdiem Hospitalist accidentally admitted patient-Dr. Hoover PCP-apologies Has provider been notified: No 10/27/21 10:59 Consult to Occupational Therapy Evaluate & Treat Comment: Physician Instructions: Evaluate and treat Consult to Physical Therapy Evaluate & Treat Comment: Physician Instructions: Evaluate and Treat Discharge provider: Zackary Hoover MD Summary Hospital Course Discharge Diagnosis: atrial fibrillation RVR Congestive heart failure acute systolic Bilateral lower wound ulcers Hypothyroidism Hypertension Hospital Course: atrial fibrillation with AVR. Patient was admitted and found to be in pretty significant atrial fibrillation with elevated rate. Initially he was this diuresis and it was hoped that he would convert. That did not show significant improvement and he was began on beta-irlanda. Patient did not respond well because of his blood pressure becoming lower. And digoxin was added. Combination did an excellent job of keeping him in the 70s and 80s. And he seemed to be tolerating well. Echo showed an EF of 35 but no other significant valvular disease. And it was felt that due to his weakness and his lack of movement it would be high risk for falls and he was not began on anticoagulation. Patient seems to be tolerating medicine well and was stable. Will be discharged home and followed up as an outpatient. Congestive heart failure. Acute systolic. [place] to be secondary mostly to rate. 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 He seems to be doing significantly better. During the course he was aggressively diuresed which did not make a huge improvement. I discussed with electrical cad designer and between rate control adding systems viral lack tone and restarting low-dose lisinopril patient seemed to be doing well. His diuresis was more impressive his legs seemed to improve significantly and he was feeling markedly better. Strength was improving inability ambulate was improving. Patient will be discharged home in stable condition. Bilateral lower extremity ulcers secondary to venous stasis and immobility. Patient at home does not move much. Other than to get up to go to the bathroom he preferred typically does not leave his chair. He has been followed by home health. We reviewed the ulcers on 2 days previous to discharge and certainly right leg still has significant ulcer. Was unable to see left leg due to bandaging. He will be followed as an outpatient with home health. Hypothyroidism stable throughout no change in dose. Hypertension. Patient was followed closely. Due to the addition of beta-blockers and his AFib his lisinopril was initially discontinued. Was restarted at low dose and his blood pressure seems to be stable will follow as outpatient. Exam Vital Signs (past 8 hours): - 11/01/21 05:18 Temperature 97.6 F Pulse Rate 67 Respiratory Rate 18 Blood Pressure 127/81 Pulse Oximetry 98 Oxygen Delivery Method Room Air Oxygen Flow Rate 0 Narrative Exam Narrative: Elderly male in no acute distress. Mucous membranes moist. Neck supple without adenopathy JVD or bruits lungs are clear heart irregular rhythm but controlled rate. No murmurs clicks rubs or gallops. Abdomen is benign. Extremities are significantly decreased in the size. And appear to be doing well. Bandages were in place. Neurologic exam is nonfocal. Objective Labs Result Diagrams: 10/26/21 05:40 10/30/21 14:02 [facility] Medical History Alcohol abuse Congestive heart failure Depression Esophageal ulceration Essential hypertension GERD (gastroesophageal reflux disease) Hypothyroidism Mixed hyperlipidemia Venous stasis Surgical History Status post appendectomy Social History household members: spouse Smoking Status: Never smoker alcohol intake: never Discharge Assessment & Plan Assessment and Plan Assessment: AFib with RVR and congestive heart failure acute systolic Doing much better. Plan of Treatment: Discharge home follow-up with me early next week continue home health 40 minutes spent in discharge discussing with patient discussing with social service orders and dictation Discharge Plan Discharge Plan Patient Disposition: Home Health Service Transfer to: [facility] Provider Discharge Comment: patient already established with home health Discharge orders & Medications Prescriptions: New furosemide [Lasix] 20 mg tablet 10 mg PO BID Qty: 60 6RF metoprolol succinate 50 mg Tablet Extended Release 24 Hr 50 mg PO DAILY Qty: 90 3RF spironolactone 25 mg Tablet 25 mg PO DAILY Qty: 30 1RF potassium chloride [Klor-Con M20] 20 mEq Tablet,Er Particles/Crystals 40 meq PO DAILYCC Qty: 30 1RF lisinopril 5 mg Tablet 2.5 mg PO DAILY Qty: 90 3RF digoxin 125 mcg (0.125 mg) Tablet 0.25 mg PO DAILY@1700 Qty: 90 1RF Continued pantoprazole 40 mg Tablet,Delayed Release (Dr/Ec) 40 mg PO DAILY Qty: 30 0RF pravastatin 20 mg Tablet 40 mg PO BEDTIME Qty: 30 0RF levothyroxine [Synthroid] 125 mcg tablet 150 mcg PO DAILY@0600 0RF tamsulosin [Flomax] 0.4 mg Capsule 0.8 mg PO DAILY Qty: 60 0RF Discontinued furosemide [Lasix] 20 mg Tablet 20 mg PO DAILY 0RF Follow up/Referrals: Zackary Hoover MD [Primary Care Provider] - 11/05/21 ( please call for appointment) Diet/Activity/Treatments Diet: Diet as Tolerated and Low-sodium Activity: please push .activity as much as possible at home Skin/Wound/Dressing Care Skin care: As per home health Report to your healthcare provider any signs of infection, such as:: chills, fever and night sweats Other wound treatment: as per home health Visit Report/Discharge Packet Instructions: DI for Heart Failure Discharge Data Primary Care Provider: Zackary Hoover
[2021-11-01 09:00] VITALS: BP 150/68; PULSE 85; RESP 20; TEMP 36.2; O2SAT 96
[2021-11-01] MEDS: MAGNESIUM HYDROXIDE 30 ML UDC PO (10:13)
[2021-11-01] MEDS: polyethylene glycoL 3350 17 GM POWD.PACK PO (10:13)
[2021-11-01] MEDS: lisinopriL 5 MG TABLET 2.5 MG PO (10:14)
[2021-11-01] MEDS: POTASSIUM CHLORIDE 20 MEQ TAB 40 MEQ PO (10:14)
[2021-11-01] MEDS: METOPROLOL ER 50 MG TABLET PO (10:14)
[2021-11-01] MEDS: SPIRONOLACTONE 25 MG TABLET PO (10:15)
[2021-11-01] MEDS: DOCUSATE 100 MG CAPSULE PO (10:15)
[2021-11-01] MEDS: ASPIRIN EC 81 MG TABLET PO (10:15)
[2021-11-01] MEDS: SODIUM CHLORIDE 0.9% FLUSH 10 ML IV (10:15)
[2021-11-01] MEDS: FUROSEMIDE 40 MG/4 ML VIAL IV (10:15)
[2021-11-01] MEDS: HEPARIN 5,000 UNIT/ML VIAL 5000 UNIT SUBCUT (10:15)
[2021-11-01 11:32] VITALS: PULSE 88
--- NOTE | 2021-11-01 11:53 | OT.IP.TRT ---
Current Diagnoses Heart failure, unspecified (10/25/21) Occupational Therapy Treatment Note M2 OT-IP Current Condition Start: 10/28/21 15:15 Freq: Status: Active Protocol: Document 10/28/21 15:22 CGR (Rec: 10/28/21 15:45 CGR [id number]) Occupational Therapy Current Condition Current Condition Evaluation Date 10/28/21 Treatment Diagnosis CHF exacerbation Diagnosis Onset Date 10/25/21 M3 OT- IP Subjective and Pain Start: 10/28/21 15:15 Freq: Status: Active Protocol: Document 11/01/21 11:44 [facility] (Rec: 11/01/21 11:53 [facility] [id number]) OT- Subjective Occupational Therapy Visit Type Type Treatment Note Visit Start Time 11:30 Visit Stop Time 11:42 Total Visit Minutes 12 Occupational Therapy Visit Comments Patient Comments Pt wanting to shave. Patient/Caregiver Goals TO go home. M4 OT- IP ADL's Start: 10/28/21 15:15 Freq: Status: Active Protocol: Document 11/01/21 11:44 [facility] (Rec: 11/01/21 11:53 [facility] [id number]) OT ADL-Grooming General Evaluation Grooming Ability Standby Assistance Areas Needing Assistance Retrieving/Set-up of Grooming Items Comments OT Grooming Comments Pt able to wash his face and use electric razor to shave after set-up. OT ADL-Bathing Comments OT Bathing Comments Pt wanting to be able to get a grab bar to put up to increase ease to get into and out of the bath tub. Suggested pt have a friend get one at the hardware store or order it online. Spoke of various options tub handle or tub bench. In addition suggested pt to talk to the home health therapist so able to see exactly what would work in his space. Pt states has a small bath tub and not much room to work with. Pt concerned his will not be able to get the right thing for him and that his friend is too busy to help. In addition , he states his son just wants things done his way and does not feel that his son will assist him. M5 OT- IP IADL's Start: 10/28/21 15:15 Freq: Status: Active Protocol: Document 10/28/21 15:22 CGR (Rec: 10/28/21 15:45 [facility] [id number]) OT-Instrumental Activities of Daily Living Deficits IADL Deficits Identified No Deficits Home Safety Awareness Awareness of Need for Assistance at Home Good Awareness Ability to Problem Solve Emergency Able to Problem Solve Situations Medication Management Medication Management No Deficits Identified Money Management Money Management No Deficits Identified Meal Preparation Meal Preparation Caregiver Provides Assist Clinic Nurse Clinic Nurse Caregiver Provides Assist Driving Driving Comments Pt states he no longer drives M6 OT- IP Functional Cognition Start: 10/28/21 15:15 Freq: Status: Active Protocol: Document 11/01/21 11:44 [facility] (Rec: 11/01/21 11:53 [facility] [id number]) Cognitive Factors Limiting Selfcare Function Cognitive Comments Cognitive Assessment Comments A bit forgetful and hard of hearing. Pt would strongly benefit from home health to look at safety set-up at home and assist /suggest for modifications as needed. M7 OT- IP Mobility and Balance Start: 10/28/21 15:15 Freq: Status: Active Protocol: Document 10/30/21 12:11 [facility] (Rec: 10/30/21 12:16 [facility] [id number]) OT- Balance Assessment Sitting Balance and Reactions Static Sitting Balance Ability Good Dynamic Sitting Balance Ability Good M8 OT- IP Objective Assessments Start: 10/28/21 15:15 Freq: Status: Active Protocol: Document 10/28/21 15:22 CGR (Rec: 10/28/21 15:45 [facility] [id number]) OT Gross Range of Motion Upper Extremity Range of Motion Assessment Within Functional Limits OT Strength Upper Extremity Strength Assessment Within Functional Limits Comments Strength Comments 5/5 OT- Coordination Assessment Upper Extremity Finger to Nose Test Within Functional Limits Finger Tapping Test Within Functional Limits OT-Muscle Tone Assessment Muscle Tone WNL Yes OT Sensation Assessment Edema Edema Present Edema Comments generalized edema M9 OT- IP Assessment and Plan Start: 10/28/21 15:15 Freq: Status: Active Protocol: Document 11/01/21 11:44 [facility] (Rec: 11/01/21 11:53 [facility] [id number]) OT Summary Assessment and Plan Potential Rehabilitation Potential Good Analytic Complexity at Evaluation Low Summary OT Impairments Functional Mobility,Dressing, Toileting,Bathing,Toilet Transfers,Shower Transfers, Activity Tolerance Progress Towards Goals Progressing Toward Goals Assessment Summary Pt will strongly benefit from home health to assist for safety of his environment and continue to work on safety with 4ww and ADl needs. Pt looking to go home today. Goals Grooming Goal Independent Dressing Goal Independent Toileting Goal Independent Bathing Goal Independent Toilet Transfer Goal Independent Shower Transfer Goal Independent Days to Meet Goals 5 Frequency of Treatment Frequency Of Treatment Once a Day Treatment Plan OT Treatment Plan ADL Training,Functional Mobility,Patient/Family Education,Discharge Planning Discharge Recommendations OT Discharge Recommendations Home with Assistance,Home Health Home Equipment Needs grab bar Transportation Needs at Discharge Private Vehicle
--- NOTE | 2021-11-01 12:07 | CM.DPC ---
DCP Continued: CM met with patient at the bedside and disscussed DC home today. Patient stated understanding and is planning on having his pick him up at DC and take him home. CM placed Resumption orders for HH and patient is planning on having his son Anotny who lives with him help him out of the car and into the house. patient states that as long as he has his FWW he will be fine with getting home. CM explained the concern of nursing about him being able to get around and the concern that his is frail. Patient stated it will be fine and his son Antony lives with him and is planning on helping him with his recovery. Patient does not want a wheel chair van or BLS for transport home. Perri Lala RNmitering machine operator
--- NOTE | 2021-11-01 12:32 | PC.NURSE ---
Day shift: Pt to d/c home today. Tele d/'d at this time.
[2021-11-01 13:00] VITALS: BP 148/69; PULSE 81; RESP 18; TEMP 36.7; O2SAT 97
--- NOTE | 2021-11-01 14:49 | PC.NURSE ---
Day shift: Off unit at approx 1450 for MRI.
--- NOTE | 2021-11-01 14:55 | PC.NURSE ---
Day shift: Per Dr Kiko DIXON to checo Crystal's BLE dressing prior to d/c. Per , replace dressings with same.
--- NOTE | 2021-11-01 15:49 | PT-IP ANOTE ---
pt eating lunch currently and stated that he is going home today and does not need to do PT at this time and will be doing his walking when he goes home.
--- NOTE | 2021-11-01 15:51 | PC.NURSE ---
Day shift: Pt's BLE dressing changed today at approx 1530. Pt tolerated well.
[2021-11-01 16:07] VITALS: PULSE 87
[2021-11-01] MEDS: DIGOXIN 0.125 MG TABLET 0.25 MG PO (16:07)
--- NOTE | 2021-11-01 16:40 | PC.NURSE ---
Day shift: Pt left unit and headed home today at approx 1635. His spouse here to help him gather belongings and she seemd to be A7Ox4. She will be helpful when he gets home. Per Pt My Son is home to help me too. Paperwork is signed and all questions answered. Pt has all personal belongings. scripts sent to Pt's pharmacy and Pt's spouse and Pt told they are there waiting. Pt also instructed to take his Digoxin tomorrow. He today dose was given. His BLE dressings remain CDI.
== END 2021-11-01 16:47 | disposition home health service (06) | DRG 291 ==
LOC: ED 15:19 → AC 15:24
PROVIDERS: Family Medicine; Admitting Provider Internal Medicine; Emergency Provider Physician Assistant; PCP Family Medicine; Referring Provider Physician Assistant; Visit Provider Family Medicine
DX: I11.0 Hypertensive heart disease with heart failure (principal); I50.23 Acute on chronic systolic (congestive) heart failure; I48.92 Unspecified atrial flutter; L97.229 Non-pressure chronic ulcer of left calf with unspecified severity; L97.219 Non-pressure chronic ulcer of right calf with unspecified severity; I48.0 Paroxysmal atrial fibrillation; E03.9 Hypothyroidism, unspecified; E87.6 Hypokalemia; K21.9 Gastro-esophageal reflux disease without esophagitis; E78.2 Mixed hyperlipidemia; I87.8 Other specified disorders of veins; Z20.822 Contact with and (suspected) exposure to COVID-19
CPT/HCPCS: 36415; 51798; 71045; 80048; 80053; 81001; 82550; 83735; 83880; 84443; 84484; 85025; 85610; 85730; 87635; 93005; 93306; 94762; 97116; 97162; 97165; 97530; 97535; 99232; 99284; 99285; C9803; J1160; J1644; J1940

== ENCOUNTER → 2021-12-12 13:28 | Outpatient (CLI) | payer OTHER, SELFPAY ==
[2021-10-25 20:01] VITALS: BMI 32.6
--- NOTE | 2022-01-06 16:48 | PM.CARDMON.1 ---
Soil Technician Report Referral & Results Date Patient Seen: 12/12/21 Requesting provider: Zackary Hoover Indication: Atrial fibrillation Duration of monitoring (days): 12 Diary information: There are no patient events to review Data: Minimum heart rate identified was 36 beats per minute at 15:57 on 12/23/2021 Maximum overall heart rate was 142 beats per minute at 02:07 on 12/14/2021 Approximately 6.5% of identified beats were ventricular ectopic in origin which would classify them as frequent Patient was continuously in atrial fibrillation/atrial flutter going back and forth between the 2, with heart rate ranging between 36 and 142 beats per minute Impression: 12 day cardiac monitor technician demonstrating continuous atrial fibrillation/atrial flutter. Patient was somewhat bradycardic at times specially when in atrial flutter with significant AV block, see tracings Clinical correlation suggested
== END ==
PROVIDERS: PCP Family Medicine; Referring Provider Family Medicine; Visit Provider Family Medicine
DX: I48.91 Unspecified atrial fibrillation (principal)
CPT/HCPCS: 93246; 93248

== ENCOUNTER → 2021-12-18 12:42 | Outpatient (ROUT) | payer OTHER, SELFPAY ==
[2021-10-25 20:01] VITALS: BMI 32.6
== END ==
PROVIDERS: PCP Family Medicine; Visit Provider Family Medicine
DX: R89.5 Abnormal microbiological findings in specimens from other organs, systems and tissues (principal)
CPT/HCPCS: 87070; 87075; 87077; 87147; 87186; 87205

== ENCOUNTER → 2021-12-23 15:34 | Outpatient (ROUT) | payer OTHER, SELFPAY ==
[2021-10-25 20:01] VITALS: BMI 32.6
[2021-12-23 15:41] LABS: Appearance Urine UA CLOUDY; Bilirubin Urine UA NEGATIVE (NEGATIVE); Color Urine UA YELLOW; Glucose Urine UA NEGATIVE (Negative); Ketones Urine UA NEGATIVE (NEGATIVE); Leukocyte Esterase Urine UA 3+ (NEGATIVE); Nitrite Urine UA NEGATIVE (Negative); Occult Blood Urine UA 1+ (Negative); Protein Urine UA 1+ (Negative); Specific Gravity Urine UA 1.015 (1.000-1.035); Urobilinogen Urine UA 0.2 E.U./dL (0.2); pH Urine UA 5.5 (4.5-8.0)
[2021-12-23 16:09] LABS: RBC Urine 0-1/HPF (0-5/HPF); WBC Urine 30-100/HPF (0-5/HPF)
[2021-12-23 16:10] LABS: Bacteria Urine Occasional (0-1); Culture Indicated Urine Specimen Cultured; Squamous Epithelial Cell Urine None Seen (0-5/HPF)
== END ==
PROVIDERS: PCP Family Medicine; Visit Provider Family Medicine
DX: N39.0 Urinary tract infection, site not specified (principal)
CPT/HCPCS: 81001; 87077; 87086; 87147

== ENCOUNTER 2022-06-29 21:12 | Inpatient (IN) | payer OTHER, SELFPAY ==
[2021-10-25 20:01] VITALS: BMI 32.6
[2022-06-29] VITALS (11 sets, daily range): BP systolic 118–147; BP diastolic 61–80; PULSE 104–122; RESP 16–32; TEMP 36.6; O2SAT 96–100
--- NOTE | 2022-06-29 21:24 | DI.RAD.S_ITS ---
PROCEDURE: XR CHEST 1V INDICATIONS: SOB TECHNIQUE: One view of the chest was acquired. COMPARISON: [facility], CR, XR CHEST 1V, 10/25/2021, 14:21. FINDINGS: Surgical changes and devices: None. Lungs and pleura: There is mild pulmonary vascular prominence suggestive of mild pulmonary edema. No pleural effusions or pneumothorax. Mediastinum: Mediastinal contours are unchanged. Heart size is enlarged. Bones and chest wall: No suspicious bony lesions. Overlying soft tissues appear unremarkable. IMPRESSION: 1. Mild pulmonary edema and cardiomegaly suggestive of congestive heart failure. Dictated by: Josias Rodrigez M.D. on 06/29/2022 at 23:56 Approved by: Josias Rodrigez M.D. on 06/29/2022 at 23:57
--- NOTE | 2022-06-29 21:28 | DI.CT.S_ITS ---
PROCEDURE: CT ABDOMEN PELVIS W CON INDICATIONS: Abdominal distention TECHNIQUE: After the administration of IV contrast, axial sections were acquired from the lung bases to the pubic symphysis. Coronal and sagittal reformats were performed. For radiation dose reduction, the following was used: automated exposure control, adjustment of mA and/or kV according to patient size. COMPARISON: [facility], CR, XR LUMBAR SPINE 2-3V, 07/24/2021, 3:19. [facility], CT, CT ABDOMEN PELVIS W CON, 03/02/2021, 11:04. FINDINGS: Image quality: There is motion artifact limiting evaluation. Lung bases: Mild dependent atelectasis is demonstrated bilaterally. Heart: Heart is normal in size. ABDOMEN: Liver: No mass lesion. Gallbladder: Within normal limits without calcified gallstones. Biliary ducts: No biliary ductal dilatation. Pancreas: Unremarkable. Spleen: Normal in size. Adrenal Glands: No adrenal nodules. Kidneys and Ureters: No hydronephrosis. There is a left renal cortical cyst. Stomach and Bowel: Stomach and small bowel loops are normal in caliber and wall thickness. The appendix is normal in appearance. There is moderate stool and gas distention in the the colon with air-fluid levels but without a focal single transition point. Findings are suggestive of an ileus or gastroenteritis. Peritoneum: No abnormal intraperitoneal fluid. No free air. Ventral Wall: No hernia. Abdominal Nodes: No retroperitoneal or mesenteric adenopathy by size criteria. Vessels: Aorta and inferior vena cava are normal in size. PELVIS: Pelvic Organs: The prostate is moderately enlarged.. Bladder: There is a Page catheter within a partially distended urinary bladder. There is suggestion of mild bladder wall thickening. Pelvic Nodes: No enlarged lymph nodes. Miscellaneous: No inguinal hernias are seen. Bones: There is a mild superior endplate compression deformity of the L2 vertebral body anteriorly with approximately 45-50% loss of height. Findings are similar to the prior x-ray of 07/24/2022. Visualized osseous structures demonstrate no suspicious focal lesions. IMPRESSION: 1. Moderate stool and gas distention of the colon with air-fluid levels but without a single focal transition point. The findings are suggestive of an ileus or gastroenteritis. No definite bowel obstruction. 2. Page catheter demonstrated within a partially distended urinary bladder with suggestion of mild bladder wall thickening. Recommend correlation with urinalysis for possible cystitis. Dictated by: Josias Rodrigez M.D. on 06/29/2022 at 22:47 Approved by: Josias Rodrigez M.D. on 06/29/2022 at 22:55
--- NOTE | 2022-06-29 21:28 | ED.GENADULT ---
HPI - General Adult General Chief complaint: Shortness of Breath/Dyspnea Stated complaint: wheezing/abd pain/weak x2 days Time Seen by Provider: 06/29/22 21:23 Source: patient Mode of arrival: Wheelchair Limitations: no limitations History of Present Illness HPI narrative: Patient is a 77-year-old male. Has a history of atrial fibrillation. Is on digoxin. History of hypothyroidism, hypertension, congestive heart failure. According to his medication list is on Lasix and spironolactone. He is chronic lower extremity edema. He has had some wounds on his legs. He has his legs wrapped. He is here for evaluation of progressively worsening over the past couple days/week of shortness of breath and abdominal distention. He feels like he can not take a deep breath because his abdomen is so tense and was causing him to have discomfort. Can not exactly remember when the last bowel movement was. He thinks he is still passing flatus. He feels very weak. Denies chest pain. Is still able to tolerate oral intake. Is not having nausea or vomiting. Related Data Home Medications Medication Instructions Recorded Confirmed levothyroxine 125 mcg tablet 150 mcg PO DAILY@0600 10/26/21 10/26/21 (Synthroid) Previous Rx's Medication Instructions Recorded pantoprazole 40 mg tablet,delayed 40 mg PO DAILY #30 tabs 03/03/21 release pravastatin 20 mg tablet 40 mg PO BEDTIME #30 tabs 03/03/21 tamsulosin 0.4 mg capsule (Flomax) 0.8 mg PO DAILY #60 caps 07/28/21 digoxin 125 mcg (0.125 mg) tablet 0.25 mg PO DAILY@1700 #90 tabs 11/01/21 furosemide 20 mg tablet (Lasix) 10 mg PO BID #60 tabs 11/01/21 lisinopril 5 mg tablet 2.5 mg PO DAILY #90 tabs 11/01/21 metoprolol succinate 50 mg 50 mg PO DAILY #90 tabs 11/01/21 tablet,extended release 24 hr potassium chloride 20 mEq 40 meq PO DAILYCC #30 tabs 11/01/21 tablet,extended release(part/cryst) (Klor-Con M) spironolactone 25 mg tablet 25 mg PO DAILY #30 tabs 11/01/21 Allergies Allergy/AdvReac Type Severity Reaction Status Date / Time Penicillins [PENICILLINS] AdvReac Intermediate Gastrointestinal Verified 10/28/21 15:28 Upset Review of Systems Review of Systems ROS Unobtainable: All systems reviewed & are unremarkable except as noted in HPI and below Patient History Medical History Alcohol abuse Congestive heart failure Depression Esophageal ulceration Essential hypertension GERD (gastroesophageal reflux disease) Hypothyroidism Mixed hyperlipidemia Venous stasis Surgical History Status post appendectomy Social History household members: spouse Smoking Status: Never smoker alcohol intake: never Smoking Status: Never smoker alcohol intake frequency: 0-2 drinks per day Substance Use Type: does not use Exam Initial Vital Signs Initial Vital Signs: Vital Signs Temperature 97.9 F 06/29/22 21:12 Pulse Rate 119 H 06/29/22 21:12 Respiratory Rate 16 06/29/22 21:12 Blood Pressure 141/80 H 06/29/22 21:12 Pulse Oximetry 98 06/29/22 21:12 Oxygen Delivery Method 06/29/22 21:12 Const General: cooperative and ill appearing [facility] Head: normal to inspection and normocephalic Face and sinus: normal facial exam Chest Chest: normal inspection of the chest Resp Effort & Inspection: labored and tachypneic Auscultation: rhonchi and wheezes Cardio Rate: tachycardic Rhythm: abnormal rhythm GI Inspection: distended Palpation: firm, tender and No ascites Other: Firm abdomen but not a surgical abdomen. No pain out of proportion. Skin Other: Jaundice of his face. Has redness to his lower extremities consistent with venous stasis changes. Has blistering lateral aspect of his right foot. Neuro General: patient alert, patient awake, patient oriented x3 and moves all extremities Speech: speech normal Extrem Other: Bilateral feet are swollen. His legs from his knees to his ankles are not swollen however they were wrapped in order to prevent this. He has redness of lower extremities consistent with venous stasis changes. Psych Appearance: disheveled Course Orders Ordered: ED Orders 06/29/22 21:24 XR chest 1V Stat 06/29/22 21:25 RT Consult Eval and Treat Now 06/29/22 21:27 COVID19 -Nasal RAPID/Pre-Proc Stat Complete Blood Count AUTO DIFF Stat Comprehensive Metabolic Panel Stat Digoxin Stat Ictotest Urine Stat Lipase Stat Magnesium Stat NT-proBNP (BNP-Adult 18+) Stat Procalcitonin Stat Troponin & CK Cardiac Panel Stat Urinalysis and Microscopic Stat Urine Culture Stat 06/29/22 21:28 CT abdomen pelvis w con Stat 06/29/22 21:31 Lactate (Lactic Acid) Stat 06/29/22 21:36 EKG-12 Lead Stat 06/29/22 22:11 Blood Culture Stat 06/29/22 23:38 Consult to Physician Stat Discontinued Medications Albuterol (Albuterol 2.5 Mg/3 Ml Neb (Adult)) 2.5 mg INH NOW ONE Stop: 06/29/22 23:43 Last Admin: 06/29/22 23:48 Dose: 2.5 mg Documented By: EM Albuterol/Ipratropium (Albuterol/Ipratropium 3 Ml Ampul) 3 ml INH NOW ONE Stop: 06/29/22 23:38 Last Admin: 06/29/22 23:55 Dose: Not Given Documented By: EM Furosemide (Furosemide 40 Mg/4 Ml Vial) 40 mg IV NOW ONE Stop: 06/29/22 21:30 Last Admin: 06/29/22 21:38 Dose: 40 mg Documented By: ASHTYN Furosemide (Furosemide 40 Mg/4 Ml Vial) 40 mg IV NOW ONE Stop: 06/29/22 23:38 Last Admin: 06/29/22 23:46 Dose: 40 mg Documented By: NIC Ceftriaxone Sodium 1,000 mg/ (Sodium Chloride) 100 mls @ 200 mls/hr IV NOW ONE Stop: 06/29/22 22:16 Last Infusion: 06/29/22 23:08 Dose: 0 mls/hr Documented By: Admin: 06/29/22 22:34 Dose: 200 mls/hr Documented By: ASHTYN Vital Signs Vital signs: Vital Signs - 8 hr 06/29/22 21:12 06/29/22 21:26 06/29/22 21:26 Temperature 97.9 F Pulse Rate 119 H 104 H Respiratory Rate 16 18 Blood Pressure 141/80 H 147/78 H Pulse Oximetry 98 99 Oxygen Delivery Method Room Air 06/29/22 21:27 06/29/22 21:27 06/29/22 21:30 Temperature Pulse Rate 122 H Respiratory Rate 16 Blood Pressure 141/80 H 119/68 Pulse Oximetry 99 Oxygen Delivery Method 06/29/22 21:30 06/29/22 21:40 06/29/22 21:40 Temperature Pulse Rate 110 H 122 H Respiratory Rate 25 H 32 H Blood Pressure 130/61 Pulse Oximetry 98 98 Oxygen Delivery Method Room Air 06/29/22 22:00 06/29/22 22:00 06/29/22 22:31 Temperature Pulse Rate 119 H 111 H Respiratory Rate 25 H 24 Blood Pressure 118/62 Pulse Oximetry 100 96 Oxygen Delivery Method Room Air 06/29/22 23:00 Temperature Pulse Rate 118 H Respiratory Rate 31 H Blood Pressure Pulse Oximetry 99 Oxygen Delivery Method Medical Decision Making Medical Records Medical records reviewed: Yes I reviewed the patient's medical records. Lab Data Lab results reviewed: Yes I reviewed the patient's lab results. Result diagrams: 06/29/22 21:27 06/29/22 21:27 Labs: Lab Results 06/29/22 06/29/22 06/29/22 Range/Units 21:27 21:27 21:27 WBC 23.8 H (4.5-11.0) X10^3/uL RBC 4.42 L (4.5-5.9) X10^6/uL Hgb 14.2 (13.5-17.5) g/dL Hct 42.0 (41-53) % MCV 95.1 (80-100) fL MCH 32.2 (26-34) PG MCHC 33.9 (30-36) % RDW 14.5 (11.6-14.8) % Plt Count 111 L (150-400) X10^3/uL Neut % (Auto) Not Reportable Lymph % (Auto) Not Reportable Drew % (Auto) Not Reportable Eos % (Auto) Not Reportable Baso % (Auto) Not Reportable Lymph # (Auto) Not Reportable Drew # (Auto) Not Reportable Baso # (Auto) Not Reportable Total Counted 100 Seg Neutrophils % 86.0 H (38-70) % Band Neutrophils % 10.0 H (3-7) % Lymphocytes % (Manual) 2.0 L (25-45) % Monocytes % (Manual) 1.0 L (2-11) % Eosinophils % (Manual) 1.0 L (2-4) % Neutrophils # (Manual) 73415 H (4086-1105) /uL RBC Morphology Normal morphology Sodium 125 L (137-145) mmol/L Potassium 6.0 H (3.4-5.1) mmol/L Chloride 91 L (98-107) mmol/L Carbon Dioxide 22 (22-32) mmol/L BUN 33 H (9-20) mg/dL Creatinine 1.77 H (0.66-1.25) mg/dL Estimated GFR 39 L (>60) mL/min BUN/Creatinine Ratio 18.6 (6-22) Glucose 100 (80-110) mg/dL Lactate (0.7-2.1) mmol/L Calcium 9.8 (8.4-10.2) mg/dL Magnesium 1.7 (1.6-2.3) mg/dL Total Bilirubin 2.6 H (0.2-1.3) mg/dL AST 409 H (17-59) IU/L ALT 405 H (<50) IU/L Alkaline Phosphatase 217 H (38-126) U/L Total Creatine Kinase 24 L (55-170) U/L CK-MB (CK-2) TNP CK-MB (CK-2) Rel Index TNP Troponin I < 0.012 (0.01-0.034) ng/mL NT-Pro-B Natriuret Pep 9610 H (<450) pg/mL Total Protein 7.3 (6.3-8.2) g/dL Albumin 3.6 (3.5-5.0) g/dL Globulin 3.7 (1.7-4.1) g/dL Albumin/Globulin Ratio 1.0 (1.0-2.8) Lipase 29 (23-300) U/L Procalcitonin 1.07 H (<0.5) ng/mL Urine Color Urine Appearance Urine pH (4.5-8.0) Ur Specific [place] (1.000-1.035) Urine Protein (Negative) Urine Glucose (UA) (Negative) g/dL Urine Ketones (NEGATIVE) Urine Occult Blood (Negative) Urine Nitrate (Negative) Urine Bilirubin (NEGATIVE) Ur Bilirubin Confirm (Negative) Urine Urobilinogen (0.2) E.U./dL Ur Leukocyte Esterase (NEGATIVE) Urine RBC (0-5/HPF) Urine WBC (0-5/HPF) Ur Squamous Epith Cells (0-5/HPF) Urine Bacteria (None) Hyaline Casts (None) WBC Casts (None) Ur Culture Indicated? Digoxin 0.5 L (0.8-2.0) ng/mL SARS-CoV-2 (PCR) (Negative) 06/29/22 06/29/22 06/29/22 Range/Units 21:27 21:27 21:31 WBC (4.5-11.0) X10^3/uL RBC (4.5-5.9) X10^6/uL Hgb (13.5-17.5) g/dL Hct (41-53) % MCV (80-100) fL MCH (26-34) PG MCHC (30-36) % RDW (11.6-14.8) % Plt Count (150-400) X10^3/uL Neut % (Auto) Lymph % (Auto) Drew % (Auto) Eos % (Auto) Baso % (Auto) Lymph # (Auto) Drew # (Auto) Baso # (Auto) Total Counted Seg Neutrophils % (38-70) % Band Neutrophils % (3-7) % Lymphocytes % (Manual) (25-45) % Monocytes % (Manual) (2-11) % Eosinophils % (Manual) (2-4) % Neutrophils # (Manual) (8460-7377) /uL RBC Morphology Sodium (137-145) mmol/L Potassium (3.4-5.1) mmol/L Chloride (98-107) mmol/L Carbon Dioxide (22-32) mmol/L BUN (9-20) mg/dL Creatinine (0.66-1.25) mg/dL Estimated GFR (>60) mL/min BUN/Creatinine Ratio (6-22) Glucose (80-110) mg/dL Lactate 1.7 (0.7-2.1) mmol/L Calcium (8.4-10.2) mg/dL Magnesium (1.6-2.3) mg/dL Total Bilirubin (0.2-1.3) mg/dL AST (17-59) IU/L ALT (<50) IU/L Alkaline Phosphatase (38-126) U/L Total Creatine Kinase (55-170) U/L CK-MB (CK-2) CK-MB (CK-2) Rel Index Troponin I (0.01-0.034) ng/mL NT-Pro-B Natriuret Pep (<450) pg/mL Total Protein (6.3-8.2) g/dL Albumin (3.5-5.0) g/dL Globulin (1.7-4.1) g/dL Albumin/Globulin Ratio (1.0-2.8) Lipase (23-300) U/L Procalcitonin (<0.5) ng/mL Urine Color Yellow Urine Appearance Clear Urine pH 5.0 (4.5-8.0) Ur Specific [place] <=1.005 (1.000-1.035) Urine Protein 1+ H (Negative) Urine Glucose (UA) Negative (Negative) g/dL Urine Ketones Negative (NEGATIVE) Urine Occult Blood Negative (Negative) Urine Nitrate Negative (Negative) Urine Bilirubin 1+ H (NEGATIVE) Ur Bilirubin Confirm Negative (Negative) Urine Urobilinogen 0.2 (0.2) E.U./dL Ur Leukocyte Esterase Trace H (NEGATIVE) Urine RBC 0-1/hpf (0-5/HPF) Urine WBC 1-5/hpf (0-5/HPF) Ur Squamous Epith Cells 0-1 /hpf (0-5/HPF) Urine Bacteria Few (2-10) H (None) Hyaline Casts 0-1/lpf (None) WBC Casts 1-5/lpf H (None) Ur Culture Indicated? Specimen cultured Digoxin (0.8-2.0) ng/mL SARS-CoV-2 (PCR) Negative (Negative) Imaging Data Chest x-ray: Radiologist's Impression: [address] [address] XRay Report Signed Patient: Jay Reed MR#: [id number] : 1945 Acct:[id number] Age/Sex: 77 / M Date of Service: 06/29/22 Loc: ICU 228-1 Accession Number: [id number] ?? Procedure: XR chest 1V Ordering Provider: Milan Beaulieu D.O. PROCEDURE:? XR CHEST 1V ? INDICATIONS:? SOB ? TECHNIQUE:? One view of the chest was acquired.? ? [facility] 14:21. ? FINDINGS:? ? Surgical changes and devices:? None.? ? Lungs and pleura:? There is mild pulmonary vascular prominence suggestive of mild pulmonary edema.? No pleural effusions or pneumothorax.? ? Mediastinum:? Mediastinal contours are unchanged.? Heart size is enlarged. ? Bones and chest wall:? No suspicious bony lesions.? Overlying soft tissues appear unremarkable.? ? IMPRESSION:? ? 1. Mild pulmonary edema and cardiomegaly suggestive of congestive heart failure.? ? ? Dictated by: Josias Rodrigez M.D. on 06/29/2022 at 23:56 ? ? Approved by: Josias Rodrigez M.D. on 06/29/2022 at 23:57?? CT scan - abdomen/pelvis: Radiologist's Impression: [address] [address] [address] Scan Report Signed Patient: Jay Reed MR#: [id number] : 1945 Acct:[id number] Age/Sex: 77 / M Date of Service: 06/29/22 Loc: ED Accession Number: [id number] ?? Procedure: CT abdomen pelvis w con Ordering Provider: Milan Beaulieu D.O. PROCEDURE:? CT ABDOMEN PELVIS W CON ? INDICATIONS:? Abdominal distention ? TECHNIQUE:? After the administration of IV contrast, axial sections were acquired from the lung bases to the pubic symphysis.? Coronal and sagittal reformats were performed.? For radiation dose reduction, the following was used:? automated exposure control, adjustment of mA and/or kV according to patient size. ? COMPARISON:? Located [facility], CR, XR LUMBAR SPINE 2-3V, 07/24/2021, 3:19.? Located [facility], CT, CT ABDOMEN PELVIS W CON, 03/02/2021, 11:04. ? FINDINGS:? Image quality:? There is motion artifact limiting evaluation. ? Lung bases:? Mild dependent atelectasis is demonstrated bilaterally.? ? Heart:? Heart is normal in size. ? ? ABDOMEN: Liver:? No mass lesion. Gallbladder:? Within normal limits without calcified gallstones.? ? Biliary ducts:? No biliary ductal dilatation.? ? Pancreas:? Unremarkable.? ? Spleen:? Normal in size.? ? Adrenal Glands:? No adrenal nodules.? ? Kidneys and Ureters:? No hydronephrosis.? There is a left renal cortical cyst. ? ? Stomach and Bowel:? Stomach and small bowel loops are normal in caliber and wall thickness.? The appendix is normal in appearance.? There is moderate stool and gas distention in the the colon with air-fluid levels but without a focal single transition point.? Findings are suggestive of an ileus or gastroenteritis.? Peritoneum:? No abnormal intraperitoneal fluid.? No free air.? ? Ventral Wall: ? No hernia.? Abdominal Nodes:? No retroperitoneal or mesenteric adenopathy by size criteria.? Vessels:? Aorta and inferior vena cava are normal in size.? ? PELVIS: Pelvic Organs:? The prostate is moderately enlarged..? ? Bladder:? There is a Page catheter within a partially distended urinary bladder.? There is suggestion of mild bladder wall thickening. Pelvic Nodes: No enlarged lymph nodes.? Miscellaneous: No inguinal hernias are seen. ? ? ? Bones:? There is a mild superior endplate compression deformity of the L2 vertebral body anteriorly with approximately 45-50% loss of height.? Findings are similar to the prior x-ray of 07/24/2022.? Visualized osseous structures demonstrate no suspicious focal lesions. ? IMPRESSION:? ? 1.? Moderate stool and gas distention of the colon with air-fluid levels but without a single focal transition point.? The findings are suggestive of an ileus or gastroenteritis.? No definite bowel obstruction. ? 2. Page catheter demonstrated within a partially distended urinary bladder with suggestion of mild bladder wall thickening.? Recommend correlation with urinalysis for possible cystitis.? ? ? Dictated by: Josias Rodrigez M.D. on 06/29/2022 at 22:47 ? ? Approved by: Josias Rodrigez M.D. on 06/29/2022 at 22:55?? [facility] Narrative Medical decision making narrative: Patient was short of breath upon arrival and was tachypneic but was not hypoxic. Does have swelling to both of his feet and venous stasis changes to his lower extremities which I suspect that the swollen if he did not have the wraps around his leg. Has an elevated BNP. Chest x-ray shows fluid overload. Was given Lasix here in the emergency department. Page catheter was placed because he was given Lasix and the expected diuresis from this. Patient was so weak that he had difficulty standing by himself at bedside needed to nursing staff in order to get him to the bed. He felt that a Page catheter would be needed because of the expected diuresis. Patient was afebrile but does have a leukocytosis. Would cultures were obtained. Urine culture obtained. Does have bacteria in his urine but no white blood cells. His urine was cultured. Abdomen was distended and firm however this is not a surgical abdomen. He did not have pain out of proportion. CT scan shows what appears to be ileus without definitive sign of bowel obstruction. His lactate was unremarkable. Does have elevation in his bilirubin and LFTs. There is no other CT scan findings of acute cholecystitis. I feel that a right upper quadrant ultrasound would not be helpful because of the overlying bowel gas. Elevation in LFTs could also very well because of fluid overload. Patient also has acute kidney injury with an increase in his creatinine and decreased GFR. Given the above issues patient does require admission to the hospital for further evaluation and treatment. Discussed case with Dr. Richter who is on-call for the patient's primary provider. Holding orders were placed. Discussed the need for admission with the patient. He expressed understanding and agreement. Discharge Plan Departure Patient Disposition: Admitted As Inpatient Clinical Impression: CHF exacerbation, Shortness of breath, Atrial fibrillation with RVR, Ileus, Acute kidney injury, Hyperbilirubinemia, Transaminitis Admit Date/Time: 06/29/22 23:38 Admit Provider: Zackary Hoover
[2022-06-29] MEDS: FUROSEMIDE 40 MG/4 ML VIAL IV ×2 (21:38→23:46)
[2022-06-29 21:52] LABS: Hemoglobin 14.2 g/dL (13.5-17.5); Mean Corpuscular HGB Conc 33.9 % (30-36); Mean Corpuscular Hemoglobin 32.2 PG (26-34); Mean Corpuscular Volume 95.1 fL (80-100); Platelet Count 111 X10^3/uL (150-400); Red Blood Cell Count 4.42 X10^6/uL (4.5-5.9); Red Cell Distribution Width 14.5 % (11.6-14.8); White Blood Cell Count 23.8 X10^3/uL (4.5-11.0)
[2022-06-29 21:53] LABS: Add Manual Diff / Slide Review YES; Appearance Urine UA CLEAR; Bilirubin Urine UA 1+ (NEGATIVE); Color Urine UA YELLOW; Glucose Urine UA NEGATIVE (Negative); Ketones Urine UA NEGATIVE (NEGATIVE); Leukocyte Esterase Urine UA TRACE (NEGATIVE); Nitrite Urine UA NEGATIVE (Negative); Occult Blood Urine UA NEGATIVE (Negative); Protein Urine UA 1+ (Negative); Specific Gravity Urine UA <=1.005 (1.000-1.035); Urobilinogen Urine UA 0.2 E.U./dL (0.2)
[2022-06-29 21:56] LABS: Ictotest Urine Negative (Negative)
[2022-06-29 21:57] LABS: Alanine Aminotransferase 405 IU/L (<50); Albumin 3.6 g/dL (3.5-5.0); Alkaline Phosphatase 217 U/L (38-126); Aspartate Aminotransferase 409 IU/L (17-59); BUN Creatinine Ratio 18.6 (6-22); Bilirubin Total 2.6 mg/dL (0.2-1.3); Blood Urea Nitrogen 33 mg/dL (9-20); Calcium 9.8 mg/dL (8.4-10.2); Carbon Dioxide 22 mmol/L (22-32); Chloride 91 mmol/L (98-107); Creatine Kinase 24 U/L (55-170); Estimated Glomerular Filt Rate 39 mL/min (>60); Globulin 3.7 g/dL (1.7-4.1); Glucose 100 mg/dL (80-110); Lipase 29 U/L (23-300); Magnesium 1.7 mg/dL (1.6-2.3); Sodium 125 mmol/L (137-145); Total Protein 7.3 g/dL (6.3-8.2)
[2022-06-29 22:01] LABS: HEMOLYSIS 72 (0-50)
--- NOTE | 2022-06-29 22:02 | PC.NURSE ---
Pt requiring 3 staff members to assist pt back into bed. Pt requesting not to be placed in bed intially but pt educated on his status as a fall risk and the tests that will be requiring him to lay down. Pt reluctant to lay in bed but pt was assisted in bed. Pt expressing concern about getting up frequently to void after lasix administration. Provider verbalized order to place ro catheter to measure accurate I/Os.
[2022-06-29 22:08] LABS: NT-proBNP (BNP-Adult 18+) 9610 pg/mL (<450); Troponin I < 0.012 ng/mL (0.01-0.034)
[2022-06-29 22:12] LABS: Lactate (Lactic Acid) 1.7 mmol/L (0.7-2.1)
[2022-06-29 22:12] LABS: COVID19 -Nasal RAPID Negative (Negative)
[2022-06-29 22:13] LABS: Procalcitonin 1.07 ng/mL (<0.5)
[2022-06-29 22:17] LABS: Neutrophils Absolute Manual 22848 /uL (3000-5900); RBC Morphology Normal Morphology; Total Cells Counted 100
[2022-06-29 22:23] LABS: Bacteria Urine Few (2-10); Culture Indicated Urine Specimen Cultured; Hyaline Casts Urine 0-1/LPF; RBC Urine 0-1/HPF (0-5/HPF); Squamous Epithelial Cell Urine 0-1 /HPF (0-5/HPF); WBC Urine 1-5/HPF (0-5/HPF); White Blood Cell Casts Urine 1-5/LPF
[2022-06-29] MEDS: cefTRIAXone 1,000 MG in SODIUM CHLORIDE 0.9% 100 ML 200 MG IV (22:34)
[2022-06-29 22:35] LABS: Digoxin 0.5 ng/mL (0.8-2.0)
[2022-06-29] MEDS: ALBUTEROL 2.5 MG/3 ML NEB (ADULT) INH (23:48)
[2022-06-30] VITALS (73 sets, daily range): BP systolic 84–152; BP diastolic 50–82; PULSE 120–138; RESP 19–38; TEMP 36.4–36.9; O2SAT 84–100; BMI 36.9
--- NOTE | 2022-06-30 03:21 | PC.NURSE ---
Admit Note-Patient brought to room 228 at 0020. Oriented to person, place, year, and situation, able make needs know, declines to get into hospital bed, insists on being in recliner, waffle cushion in place. He has decreased vision, wearing dark glasses and has hearing device for [place]. ST, rate 120s, quadgeminal PVCs. Short of breath with exertion, audible wheezing, SpO2 >94% on RA. Abdomen firm distended, bowel sounds active LUQ, otherwise hypo, burping frequently, denies nausea, does not know last BM, pain with deep inspiration. Page patent with slithly cloudy urine. initially at bedside, took patients wallet with her.
--- NOTE | 2022-06-30 04:20 | PC.NURSE ---
Addendum entered by Janie Solo R.N. 06/30/22 06:49: Dr Forde notified this am about patients HR sustaining >120 and bigeminal PVCs, orders received for lab draws and to give metoprolol succinate 50mg PO now. Addendum entered by Janie Solo R.N. 06/30/22 04:28: wound Original Note: Wounds
[2022-06-30] MEDS: METOPROLOL ER 50 MG TABLET PO (06:37)
[2022-06-30 06:59] LABS: Add Manual Diff / Slide Review YES; Hematocrit 38.8 % (41-53); Hemoglobin 13.2 g/dL (13.5-17.5); Mean Corpuscular Hemoglobin 32.1 PG (26-34); Mean Corpuscular Volume 94.3 fL (80-100); Platelet Count 106 X10^3/uL (150-400); Red Blood Cell Count 4.11 X10^6/uL (4.5-5.9); Red Cell Distribution Width 14.8 % (11.6-14.8); White Blood Cell Count 19.2 X10^3/uL (4.5-11.0)
[2022-06-30 07:05] LABS: Alanine Aminotransferase 384 IU/L (<50); Albumin 2.9 g/dL (3.5-5.0); Albumin Globulin Ratio 0.9 (1.0-2.8); Alkaline Phosphatase 201 U/L (38-126); Aspartate Aminotransferase 393 IU/L (17-59); BUN Creatinine Ratio 18.5 (6-22); Blood Urea Nitrogen 34 mg/dL (9-20); Calcium 9.1 mg/dL (8.4-10.2); Carbon Dioxide 26 mmol/L (22-32); Chloride 90 mmol/L (98-107); Estimated Glomerular Filt Rate 37 mL/min (>60); Globulin 3.1 g/dL (1.7-4.1); Glucose 101 mg/dL (80-110); HEMOLYSIS < 15 (0-50); Magnesium 1.5 mg/dL (1.6-2.3); Potassium 5.1 mmol/L (3.4-5.1); Sodium 123 mmol/L (137-145)
[2022-06-30 07:23] LABS: Anisocytosis 1+; Neutrophils Absolute Manual 16128 /uL (3000-5900); Total Cells Counted 100
[2022-06-30 07:36] LABS: Thyroid Stimulating Hormone 1.29 uIU/mL (0.47-4.68)
--- NOTE | 2022-06-30 08:51 | DI.ECHO.S_ITS ---
[facility]---------+ [facility] +---------+ : : [address] [place] : : : : [id number] : : : : Phone: [phone] Echocardiogram Report + + :Name: SHI POON Study Date: 06/30/2022 Height: 69 in : :[facility] ReadingLocation: Weight: 250 lb: : Gender: Male BSA: 2.3 m2 : :: 1945 Age: 77 yrs BP: 98/59 mmHg: :Reason For Study: ATRIAL FIBRILLATION W/ RVR : :Ordering Physician: SUMIT, : :ALYSSA Performed By: Magi Peters : :Referring: ALYSSA ARANA : + + Interpretation Summary There is mild concentric left ventricular hypertrophy. The ejection fraction is estimated to be 35-40%. Diastolic function could not be accurately assessed due to atrial fibrillation. The right ventricle is moderate to severely dilated. Right ventricular systolic function is moderately reduced. Severe biatrial enlargement. No significant valvular abnormalities. Right ventricular systolic pressure is estimated to be 30 mmHg plus the clinically estimated CVP which cannot be estimated on this exam. Paired to the prior study dated 10/25/2021, the RV now appears dilated with decreased systolic function. Procedure: A two-dimensional transthoracic echocardiogram with color flow and Doppler was performed. The study quality was technically difficult. The study quality was technically limited. Patient was scanned supine in chair without bed in room for transfer. A contrast injection of Definity was performed to improve assessment of LV function. Comparison is made with the echocardiogram of 10/25/2021. Occasional bigemy throughout exam. The patient was in atrial fibrillation with heart rates between 122-133 bpm during the exam. Left Ventricle: The left ventricular cavity is small. There is mild concentric left ventricular hypertrophy. The ejection fraction is estimated to be 35-40%. Diastolic function could not be accurately assessed due to atrial fibrillation. Right Ventricle: The right ventricle is moderate to severely dilated. Right ventricular systolic function is moderately reduced. Atria: The left atrium is severely dilated. The right atrium is severely dilated. There is no Doppler evidence for an interatrial shunt. Mitral Valve: There is moderate mitral annular calcification. The mitral valve mean gradient is 4.1 mmHg. There is trace mitral regurgitation. Aortic Valve: The aortic valve is trileaflet. The aortic valve is mildly calcified. There is no aortic valve stenosis. No aortic regurgitation is present. Tricuspid Valve: The tricuspid valve is not well visualized, but is grossly normal. There is trace tricuspid regurgitation. Right ventricular systolic pressure is estimated to be 30 mmHg plus the clinically estimated CVP which cannot be estimated on this exam. Pulmonic Valve: The pulmonic valve is not well visualized. There is no pulmonic valvular regurgitation. Great Vessels: The aortic root is normal size. The dimensions of the ascending aorta are normal. The inferior vena cava was not well visualized. Pericardium/ Pleura There is no pericardial effusion. There is no pleural effusion. MMode/2D Measurements & Calculations LVIDd: 3.8 cm LVOT diam: 2.3 cm LVIDs: 3.0 cm Ao root diam: 3.9 cm FS: 19.8 % asc Aorta Diam: 3.9 cm IVSd: 1.3 cm LVPWd: 1.3 cm LV tapia. diameter/BSA (cm/m^2): 1.7 LV sys. diameter/BSA (cm/m^2): 1.3 LA A2 area: 31.6 cm2 RA long axis: 5.4 cm LA A4 area: 30.4 cm2 RA area: 26.2 cm2 LA length (vol): 6.6 cm RA vol: 108.1 ml LA vol: 124.4 ml RA : 47.6 ml/m2 LA vol index: 54.8 ml/m2 TAPSE: 1.6 cm Doppler Measurements & Calculations Ao V2 max: 182.3 cm/sec LVOT Max Pete: 104.5 cm/sec Ao V2 mean: 117.0 cm/sec LV V1 max P.4 mmHg Ao max P.3 mmHg LV V1 VTI: 16.8 cm Ao mean P.5 mmHg DAGOBERTO(I,D): 2.8 cm2 Ao V2 VTI: 25.3 cm DAGOBERTO(V,D): 2.4 cm2 sev ratio: 0.66 DAGOBERTO indexed to BSA (cm^2/m^2): 1.2 MV E max pete: 136.5 cm/sec TR max pete: 244.4 cm/sec MV A max pete: 3.4 cm/sec TR max P.3 mmHg MV E/A: 40.0 PA pr(Accel): 41.3 mmHg Med Peak E' Pete: 8.1 cm/sec E/E' med: 16.9 Lat Peak E' Pete: 10.0 cm/sec E/E' lat: 13.7 E/e' average: 15.3 MV dec time: 0.21 sec MVA(VTI): 3.1 cm2 MV V2 mean: 88.6 cm/sec SV(LVOT): 71.0 ml MV mean P.1 mmHg MV V2 VTI: 23.3 cm Reading Physician:02:14 PM
--- NOTE | 2022-06-30 08:56 | P.HP_ITS ---
History of Present Illness History of Present Illness Date Patient Seen: 06/30/22 Time Patient Seen: 08:56 Chief complaint: wheezing/abd pain/weak x2 days Narrative: This is a pleasant 77-year-old male with multiple medical problems who presents to the ER with a 2 day history of progressive worsening wheezing, shortness of breath, abdominal pain and weakness. Patient has a history of AFib with RVR for which he was hospitalized in September. He has a history of chronic peripheral edema with chronic venous stasis changes with wounds. Patient was found to be in atrial fibrillation with rapid ventricular rate, acute on chronic kidney disease, elevated liver function tests and worsening peripheral edema was admitted for further evaluation and treatment Past medical history: 1. AFib with RVR. Not on anticoagulation due to patient choice 2. Congestive heart failure with ejection fraction on last echo in November of 201911/17/2029 5% 3. Distant history of alcohol abuse 4. Essential hypertension 5. Depression 6. Esophagitis 7. Peripheral edema with chronic venous stasis changes 8. Hypothyroidism 9. Hyperlipidemia 10. GERD 11. Obesity 12. Chronic hearing loss Allergies: Penicillin unclear of response Past surgical history tonsillectomy Social history: Patient is , his 's name is Avani. They live in a [place] in in a [facility]. Patient is retired. He went through school through the 8th grade. He is a Jewish. Health related behavior: Patient does not currently smoke or use alcohol or recreational drugs Family history: Father at age 67 from heart disease, deafness, diabetes, hypertension Mother at age 95 from heart disease stroke deafness hypertension Patient has a sibling who is had a stroke and hypertension Review of system it is unclear when patient had last bowel movement Patient denies any bright red blood per rectum or black tarry stools or hematochezia Patient denies any chest pain, fevers, chills, palpitations, lightheadedness or dizziness Patient denies any headaches. Patient has had abdominal pain and worsening peripheral edema 12 point review of systems is otherwise negative other than in HPI Patient History Medical History Alcohol abuse Congestive heart failure Depression Esophageal ulceration Essential hypertension GERD (gastroesophageal reflux disease) Hypothyroidism Mixed hyperlipidemia Venous stasis Surgical History Status post appendectomy Family & Social History Social History: household members spouse Prior Living Arrangements Mobile home Safety & Behavioral: Feels Safe in Current Yes Environment Been Physically Hurt or No Threatened By a Person Tobacco & Substance use: Smoking Status Never smoker alcohol intake never alcohol intake frequency 0-2 drinks per day Substance Use Type does not use Meds Home Medications and Allergies Home Medications Medication Instructions Recorded Confirmed Type pantoprazole 40 mg tablet,delayed 40 mg PO DAILY #30 tabs 03/03/21 10/26/21 Rx release pravastatin 20 mg tablet 40 mg PO BEDTIME #30 tabs 03/03/21 10/26/21 Rx tamsulosin 0.4 mg capsule (Flomax) 0.8 mg PO DAILY #60 caps 07/28/21 10/26/21 Rx levothyroxine 125 mcg tablet 150 mcg PO DAILY@0600 10/26/21 10/26/21 History (Synthroid) digoxin 125 mcg (0.125 mg) tablet 0.25 mg PO DAILY@1700 #90 tabs 11/01/21 Rx furosemide 20 mg tablet (Lasix) 10 mg PO BID #60 tabs 11/01/21 Rx lisinopril 5 mg tablet 2.5 mg PO DAILY #90 tabs 11/01/21 Rx metoprolol succinate 50 mg 50 mg PO DAILY #90 tabs 11/01/21 Rx tablet,extended release 24 hr potassium chloride 20 mEq 40 meq PO DAILYCC #30 tabs 11/01/21 Rx tablet,extended release(part/cryst) (Klor-Con M) spironolactone 25 mg tablet 25 mg PO DAILY #30 tabs 11/01/21 Rx Allergies Allergy/AdvReac Type Severity Reaction Status Date / Time Penicillins [PENICILLINS] AdvReac Intermediate Gastrointestinal Verified 10/28/21 15:28 Upset Exam Vital Signs (past 8 hours): - 06/30/22 01:00 06/30/22 01:30 06/30/22 02:45 Temperature 97.6 F Pulse Rate 124 H 125 H Respiratory Rate 23 24 Blood Pressure Pulse Oximetry 94 Oxygen Flow Rate 0 06/30/22 04:00 06/30/22 06:37 06/30/22 02:00 Temperature Pulse Rate 121 H 124 H 125 H Respiratory Rate 19 25 H Blood Pressure 108/55 L 106/57 L Pulse Oximetry 94 Oxygen Flow Rate 0 06/30/22 02:30 06/30/22 02:50 06/30/22 02:50 Temperature Pulse Rate 126 H 130 H Respiratory Rate 32 H 25 H Blood Pressure 95/61 Pulse Oximetry Oxygen Flow Rate 06/30/22 03:00 06/30/22 03:30 06/30/22 03:54 Temperature Pulse Rate 129 H 129 H Respiratory Rate 23 28 H Blood Pressure 108/58 L Pulse Oximetry Oxygen Flow Rate 06/30/22 03:54 06/30/22 04:00 06/30/22 04:30 Temperature Pulse Rate 126 H 124 H 125 H Respiratory Rate 32 H 25 H Blood Pressure Pulse Oximetry Oxygen Flow Rate 06/30/22 05:00 06/30/22 05:30 06/30/22 06:00 Temperature Pulse Rate 124 H 124 H 124 H Respiratory Rate 28 H 36 H Blood Pressure Pulse Oximetry Oxygen Flow Rate 06/30/22 06:30 06/30/22 06:36 06/30/22 06:36 Temperature Pulse Rate 125 H 124 H Respiratory Rate 23 27 H Blood Pressure 106/57 L Pulse Oximetry Oxygen Flow Rate 06/30/22 06:30 06/30/22 08:06 06/30/22 07:00 Temperature 98.3 F 98.4 F Pulse Rate 124 H Respiratory Rate 25 H Blood Pressure Pulse Oximetry 97 Oxygen Flow Rate 0 06/30/22 07:30 06/30/22 08:00 06/30/22 08:08 Temperature Pulse Rate 124 H 127 H Respiratory Rate 26 H 27 H Blood Pressure 100/61 Pulse Oximetry 98 Oxygen Flow Rate 06/30/22 08:08 06/30/22 08:30 Temperature Pulse Rate 130 H 130 H Respiratory Rate 26 H 25 H Blood Pressure Pulse Oximetry 97 95 Oxygen Flow Rate Oxygen Delivery Method Room Air Oxygen Flow Rate 0 Narrative Exam Narrative: Patient is alert and oriented x3 though somewhat difficult to obtain history and understand his speech Blood pressure 100/60 with heart rate in 130s, stable on room air in the upper 90s HEENT is remarkable for dry mucous membranes with some blood around his mouth, presumed from cracking of lips Neck: Supple with I would adenopathy or bruit Chest: Diffuse inspiratory expiratory wheezing with poor air exchange and decreased breath sounds in bases Cor: Irregularly irregular rhythm at a rapid rate Abdomen: Positive bowel sounds, obese, protuberant but nondistended and no reproducible tenderness. Extremities: Marked edema right greater than left with erythema on the right with tenderness to palpation and difficulty palpating pulses due to patient's pain and swelling. Capillary refill time is less than 3 seconds. Neurologic exam is nonfocal Skin exam shows 4 cm blister right distal lower extremity Objective Labs Result Diagrams: 06/30/22 06:19 06/30/22 06:19 Labs: Laboratory Results - last 24 hr 06/29/22 06/29/22 06/29/22 21:27 21:27 21:27 WBC 23.8 H RBC 4.42 L Hgb 14.2 Hct 42.0 MCV 95.1 MCH 32.2 MCHC 33.9 RDW 14.5 Plt Count 111 L Neut % (Auto) Not Reportable Lymph % (Auto) Not Reportable [place] % (Auto) Not Reportable Eos % (Auto) Not Reportable Baso % (Auto) Not Reportable Lymph # (Auto) Not Reportable [place] # (Auto) Not Reportable Baso # (Auto) Not Reportable Total Counted 100 Seg Neutrophils % 86.0 H Band Neutrophils % 10.0 H Lymphocytes % (Manual) 2.0 L Monocytes % (Manual) 1.0 L Eosinophils % (Manual) 1.0 L Neutrophils # (Manual) 43692 H RBC Morphology Normal morphology Anisocytosis Sodium 125 L Potassium 6.0 H Chloride 91 L Carbon Dioxide 22 BUN 33 H Creatinine 1.77 H Estimated GFR 39 L BUN/Creatinine Ratio 18.6 Glucose 100 Lactate Calcium 9.8 Magnesium 1.7 Total Bilirubin 2.6 H AST 409 H ALT 405 H Alkaline Phosphatase 217 H Total Creatine Kinase 24 L CK-MB (CK-2) TNP CK-MB (CK-2) Rel Index TNP Troponin I < 0.012 NT-Pro-B Natriuret Pep 9610 H Total Protein 7.3 Albumin 3.6 Globulin 3.7 Albumin/Globulin Ratio 1.0 Lipase 29 Procalcitonin 1.07 H TSH Urine Color Urine Appearance Urine pH Ur Specific [place] Urine Protein Urine Glucose (UA) Urine Ketones Urine Occult Blood Urine Nitrate Urine Bilirubin Ur Bilirubin Confirm Urine Urobilinogen Ur Leukocyte Esterase Urine RBC Urine WBC Ur Squamous Epith Cells Urine Bacteria Hyaline Casts WBC Casts Ur Culture Indicated? Nasal Screen MRSA (PCR) Digoxin 0.5 L SARS-CoV-2 (PCR) 1006/29/22 06/29/22 21:27 21:27 21:31 WBC RBC Hgb Hct MCV MCH MCHC RDW Plt Count Neut % (Auto) Lymph % (Auto) [place] % (Auto) Eos % (Auto) Baso % (Auto) Lymph # (Auto) [place] # (Auto) Baso # (Auto) Total Counted Seg Neutrophils % Band Neutrophils % Lymphocytes % (Manual) Monocytes % (Manual) Eosinophils % (Manual) Neutrophils # (Manual) RBC Morphology Anisocytosis Sodium Potassium Chloride Carbon Dioxide BUN Creatinine Estimated GFR BUN/Creatinine Ratio Glucose Lactate 1.7 Calcium Magnesium Total Bilirubin AST ALT Alkaline Phosphatase Total Creatine Kinase CK-MB (CK-2) CK-MB (CK-2) Rel Index Troponin I NT-Pro-B Natriuret Pep Total Protein Albumin Globulin Albumin/Globulin Ratio Lipase Procalcitonin TSH Urine Color Yellow Urine Appearance Clear Urine pH 5.0 Ur Specific [place] <=1.005 Urine Protein 1+ H Urine Glucose (UA) Negative Urine Ketones Negative Urine Occult Blood Negative Urine Nitrate Negative Urine Bilirubin 1+ H Ur Bilirubin Confirm Negative Urine Urobilinogen 0.2 Ur Leukocyte Esterase Trace H Urine RBC 0-1/hpf Urine WBC 1-5/hpf Ur Squamous Epith Cells 0-1 /hpf Urine Bacteria Few (2-10) H Hyaline Casts 0-1/lpf WBC Casts 1-5/lpf H Ur Culture Indicated? Specimen cultured Nasal Screen MRSA (PCR) Digoxin SARS-CoV-2 (PCR) Negative 06/30/22 06/30/22 06/30/22 00:43 06:05 06:19 WBC 19.2 H RBC 4.11 L Hgb 13.2 L Hct 38.8 L MCV 94.3 MCH 32.1 MCHC 34.0 RDW 14.8 Plt Count 106 L Neut % (Auto) Not Reportable Lymph % (Auto) Not Reportable [place] % (Auto) Not Reportable Eos % (Auto) Not Reportable Baso % (Auto) Not Reportable Lymph # (Auto) Not Reportable [place] # (Auto) Not Reportable Baso # (Auto) Not Reportable Total Counted 100 Seg Neutrophils % 79.0 H Band Neutrophils % 5.0 Lymphocytes % (Manual) 8.0 L Monocytes % (Manual) 6.0 Eosinophils % (Manual) 2.0 Neutrophils # (Manual) 58655 H RBC Morphology See below Anisocytosis 1+ H Sodium Potassium Chloride Carbon Dioxide BUN Creatinine Estimated GFR BUN/Creatinine Ratio Glucose Lactate Calcium Magnesium Total Bilirubin AST ALT Alkaline Phosphatase Total Creatine Kinase CK-MB (CK-2) CK-MB (CK-2) Rel Index Troponin I NT-Pro-B Natriuret Pep Total Protein Albumin Globulin Albumin/Globulin Ratio Lipase Procalcitonin TSH 1.29 Urine Color Urine Appearance Urine pH Ur Specific [place] Urine Protein Urine Glucose (UA) Urine Ketones Urine Occult Blood Urine Nitrate Urine Bilirubin Ur Bilirubin Confirm Urine Urobilinogen Ur Leukocyte Esterase Urine RBC Urine WBC Ur Squamous Epith Cells Urine Bacteria Hyaline Casts WBC Casts Ur Culture Indicated? Nasal Screen MRSA (PCR) Negative for mrsa Digoxin SARS-CoV-2 (PCR) 06/30/22 06:19 WBC RBC Hgb Hct MCV MCH MCHC RDW Plt Count Neut % (Auto) Lymph % (Auto) [place] % (Auto) Eos % (Auto) Baso % (Auto) Lymph # (Auto) [place] # (Auto) Baso # (Auto) Total Counted Seg Neutrophils % Band Neutrophils % Lymphocytes % (Manual) Monocytes % (Manual) Eosinophils % (Manual) Neutrophils # (Manual) RBC Morphology Anisocytosis Sodium 123 L Potassium 5.1 Chloride 90 L Carbon Dioxide 26 BUN 34 H Creatinine 1.84 H Estimated GFR 37 L BUN/Creatinine Ratio 18.5 Glucose 101 Lactate Calcium 9.1 Magnesium 1.5 L Total Bilirubin 2.0 H AST 393 H ALT 384 H Alkaline Phosphatase 201 H Total Creatine Kinase CK-MB (CK-2) CK-MB (CK-2) Rel Index Troponin I NT-Pro-B Natriuret Pep Total Protein 6.0 L Albumin 2.9 L Globulin 3.1 Albumin/Globulin Ratio 0.9 L Lipase Procalcitonin TSH Urine Color Urine Appearance Urine pH Ur Specific [place] Urine Protein Urine Glucose (UA) Urine Ketones Urine Occult Blood Urine Nitrate Urine Bilirubin Ur Bilirubin Confirm Urine Urobilinogen Ur Leukocyte Esterase Urine RBC Urine WBC Ur Squamous Epith Cells Urine Bacteria Hyaline Casts WBC Casts Ur Culture Indicated? Nasal Screen MRSA (PCR) Digoxin SARS-CoV-2 (PCR) Assessment & Plan Assessment & Plan narrative: 77-year-old male admitted with AFib with RVR, peripheral edema with chronic wounds, UTI Assessment 1. AFib with RVR Plan: Patient will be ICU admission given his current status and multiple comorbidities. CK and troponin are negative. Suspect that this is chronic possibly gradual worsening versus noncompliance with medications. Discussed with Cardiology who graciously agreed to evaluate patient. We will load with digoxin 0.25 IV q.6 huma how he response in terms of heart rate due to his borderline systolic blood pressure and elevated liver function tests with prevent using the amiodarone. We will continue metoprolol 50 mg daily. Continue his lisinopril 2.5 mg twice daily for afterload reduction. We will continue to rule out for acute myocardial infarction and other causes of AFib with RVR and congestive heart failure exacerbation. We will repeat an echo. We will give an additional 20 mg of IV Lasix. We will repeat labs at 4:00 p.m. and check his thyroid as well as he is has hypothyroidism. Patient has declined anticoagulation. Assessment 2. Acute on chronic systolic heart failure exacerbation likely related to AFib with RVR Plan: Echo. Treat RVR. Diurese as were able. Continue lisinopril and Lasix and metoprolol. Will hold spironolactone for now due to worsening kidney function and elevated potassium. Assessment 3. Hypothyroidism Plan: Check TSH Assessment 4. Peripheral edema with chronic wounds with possible cellulitis Plan: Will continue ceftriaxone. Will diurese. Will consult Wound Care. Will consult PT. Assessment 5. Acute on chronic kidney disease Plan: Will diurese gingerly and will continue to monitor. May have to add IV fluids but will not at this time. Assessment 6. Hyperkalemia improved since admit Plan: Will hold spironolactone. Will recheck at 4:00 p.m. Assessment 7. Hypomagnesemia Plan: Will replace magnesium Assessment 8. GI prophylaxis Plan: Will provide pantoprazole Assessment 9. DVT prophylaxis Plan: We will continue Lovenox Discussed code status with patient he is a full code 70 minutes spent with patient today discussing with physicians, nursing, meeting with patient, reviewing chart formulating a plan and documentation Time Spent With Patient Critical Care time: I spent a total of [] minutes of critical care time on this patient's care today; this time is exclusive of procedural time. Quality VTE Deep Vein Thrombosis/Pulmonary Embolism Present on Admission: No
[2022-06-30] MEDS: PANTOPRAZOLE 40 MG VIAL IV (09:24)
[2022-06-30] MEDS: ENOXAPARIN 30 MG/0.3 ML SYRINGE SUBCUT (09:25)
[2022-06-30] MEDS: cefTRIAXone 1,000 MG in SODIUM CHLORIDE 0.9% 100 ML 200 MG IV (09:25)
[2022-06-30] MEDS: FUROSEMIDE 20 MG/2 ML VIAL IV (09:25)
[2022-06-30] MEDS: MAGNESIUM SULFATE 2 GM/50 ML PIGGYBACK IV (09:25)
[2022-06-30] MEDS: SODIUM CHLORIDE 0.9% FLUSH 10 ML IV ×2 (09:26→20:48)
[2022-06-30] MEDS: ENOXAPARIN 40 MG/0.4 ML SYRINGE SUBCUT (09:30)
[2022-06-30] MEDS: ACETAMINOPHEN 325 MG TABLET 650 MG PO ×2 (09:54→21:00)
[2022-06-30] MEDS: SENNOSIDES 8.6 MG TABLET PO (09:54)
[2022-06-30] MEDS: DOCUSATE 100 MG CAPSULE PO (10:52)
--- NOTE | 2022-06-30 11:11 | PM.CN ---
History of Present Illness Consult details Date Patient Seen: 06/30/22 Time Patient Seen: 11:00 Chief complaint: wheezing/abd pain/weak x2 days Reason for consult: CHF, A Fib Requesting provider: Anabel Montana Narrative: I had the pleasure of seeing Jay Reed in initial cardiac consultation. He's a 77 yo M with a h/o HFrEF, atrial fibrillation, HTN, HLP and hypothyroidism.? He presented with the ED with a complaint of generalized weakness, SOB, abdominal discomfort with decreased appetite and worsening LE swelling.? He was found to be in A fib with RVR and with GLENROY and transaminitis.? He was given IV furosemide with a decent diuresis so far.? He confirms orthopnea and PND.? He denies CP, palpitations, abd pain, N/V, bleeding and syncope. Meds Home Medications and Allergies Home Medications Medication Instructions Recorded Confirmed Type pantoprazole 40 mg tablet,delayed 40 mg PO DAILY #30 tabs 03/03/21 10/26/21 Rx release pravastatin 20 mg tablet 40 mg PO BEDTIME #30 tabs 03/03/21 10/26/21 Rx tamsulosin 0.4 mg capsule (Flomax) 0.8 mg PO DAILY #60 caps 07/28/21 10/26/21 Rx levothyroxine 125 mcg tablet 150 mcg PO DAILY@0600 10/26/21 10/26/21 History (Synthroid) digoxin 125 mcg (0.125 mg) tablet 0.25 mg PO DAILY@1700 #90 tabs 11/01/21 Rx furosemide 20 mg tablet (Lasix) 10 mg PO BID #60 tabs 11/01/21 Rx lisinopril 5 mg tablet 2.5 mg PO DAILY #90 tabs 11/01/21 Rx metoprolol succinate 50 mg 50 mg PO DAILY #90 tabs 11/01/21 Rx tablet,extended release 24 hr potassium chloride 20 mEq 40 meq PO DAILYCC #30 tabs 11/01/21 Rx tablet,extended release(part/cryst) (Klor-Con M) spironolactone 25 mg tablet 25 mg PO DAILY #30 tabs 11/01/21 Rx Allergies Allergy/AdvReac Type Severity Reaction Status Date / Time Penicillins [PENICILLINS] AdvReac Intermediate Gastrointestinal Verified 10/28/21 15:28 Upset Review of Systems Constitutional Constitutional: Reports fatigue, Denies fever(s) and Reports weakness Eyes Eyes: Denies blurry vision ENT Ears, Nose, Mouth, and Throat: Yes hearing loss Cardiovascular Cardiovascular: Denies chest pain, Denies syncope, Reports pedal edema, Reports leg ulcers, Reports leg edema, Reports dyspnea, Reports dyspnea on exertion and Reports orthopnea Respiratory Respiratory: Reports dyspnea, Reports dyspnea on exertion and Reports wheezing Gastrointestinal Gastrointestinal: Reports abdominal pain and Denies hematochezia Genitourinary Genitourinary: Reports urinary frequency Musculoskeletal Musculoskeletal: Reports back pain Integumentary/Breasts Skin/Breast: Reports skin pain, Reports skin ulcer and Reports sores Neurologic Neurologic: Denies syncope and Reports weakness Endocrine Endocrine: Reports fatigue Hematologic/Lymphatic Hematologic/Lymphatic: Denies easy bleeding Allergic/Immunologic Allergic/Immunologic: Reports wheezing Exam Vital Signs (past 8 hours): - 06/30/22 04:00 06/30/22 06:37 06/30/22 03:30 Temperature Pulse Rate 121 H 124 H 129 H Respiratory Rate 19 28 H Blood Pressure 108/55 L 106/57 L Pulse Oximetry 94 Oxygen Flow Rate 0 06/30/22 03:54 06/30/22 03:54 06/30/22 04:00 Temperature Pulse Rate 126 H 124 H Respiratory Rate 32 H 25 H Blood Pressure 108/58 L Pulse Oximetry Oxygen Flow Rate 06/30/22 04:30 06/30/22 05:00 06/30/22 05:30 Temperature Pulse Rate 125 H 124 H 124 H Respiratory Rate 28 H Blood Pressure Pulse Oximetry Oxygen Flow Rate 06/30/22 06:00 06/30/22 06:30 06/30/22 06:36 Temperature Pulse Rate 124 H 125 H 124 H Respiratory Rate 36 H 23 27 H Blood Pressure Pulse Oximetry Oxygen Flow Rate 06/30/22 06:36 06/30/22 06:30 06/30/22 08:06 Temperature 98.3 F 98.4 F Pulse Rate Respiratory Rate Blood Pressure 106/57 L Pulse Oximetry 97 Oxygen Flow Rate 0 06/30/22 07:00 06/30/22 07:30 06/30/22 08:00 Temperature Pulse Rate 124 H 124 H 127 H Respiratory Rate 25 H 26 H 27 H Blood Pressure Pulse Oximetry 98 Oxygen Flow Rate 06/30/22 08:08 06/30/22 08:08 06/30/22 08:30 Temperature Pulse Rate 130 H 130 H Respiratory Rate 26 H 25 H Blood Pressure 100/61 Pulse Oximetry 97 95 Oxygen Flow Rate 06/30/22 07:05 06/30/22 09:00 06/30/22 09:30 Temperature Pulse Rate 124 H 130 H 131 H Respiratory Rate 24 23 Blood Pressure 106/57 L Pulse Oximetry 96 Oxygen Flow Rate Oxygen Delivery Method Room Air Oxygen Flow Rate 0 Const General: cooperative Nutritional Appearance: overweight and edematous Orientation: alert, awake and oriented x3 HENMT Head: atraumatic Ears: hearing grossly abnormal bilaterally Mouth: No lip normal (Dry) Eyes Conjunctivae: conjunctivae normal Neck Neck: supple and JVD (Difficult to assess due to neck thickness) Carotids: delayed carotid upstroke and no bruits Resp Effort & Inspection: decreased respiratory effort Auscultation: rales and wheezes Cardio Palpation: abnormal PMI Rate: tachycardic Rhythm: other (Irregular) Heart Sounds: S1 normal, S2 normal and no murmurs Bruits: no carotid bruits Other: Early peaking brachial pulses GI Inspection: distended Palpation: soft Auscultation: normal bowel sounds Scrotum: scrotum normal Skin Wounds: wounds noted (BL LE and feet) Neuro General: moves all extremities Cranial Nerves: No hearing normal Extrem Right lower extremity: edema Details: pitting and 4+ Left lower extremity: edema Details: pitting and 4+ Psych Appearance: grossly normal Objective ECG Impression: A fib, frequent PVCs, cannot r/o inferior infarct Imaging Echo: My impression: 10/25/2021 Echo 1) Mildly increased let ventricular thickness wiht normal size and moderately reduced systolic function (EF about 35%). 2) Normal right ventricular size with mildly reduced function. 3) There is mild to moderate tricuspid regurgitation. 4) The right ventricular systolic pressure is estimated to be at least 39 mmHg based on an estimated right atrial pressure of 15 mm Hg. 5) Atrial flutter/fib with rapid ventricular response during the study. 6) Compared to the Echo done 06/11/2018, LVEF has dropped significantly from 60-65% to 35% on this study. Chest x-ray: Radiologist's impression: Mild pulmonary edema and cardiomegaly suggestive of congestive heart failure.? CT scan - abdomen: Radiologist's impression: 1.? Moderate stool and gas distention of the colon with air-fluid levels but without a single focal transition point.? The findings are suggestive of an ileus or gastroenteritis.? No definite bowel obstruction. ? 2. Page catheter demonstrated within a partially distended urinary bladder with suggestion of mild bladder wall thickening.? Recommend correlation with urinalysis for possible cystitis. 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 Patient was somewhat bradycardic at times specially when in atrial flutter with significant AV block Labs Result Diagrams: 06/30/22 06:19 06/30/22 06:19 Labs: Laboratory Results - last 24 hr 06/29/22 06/29/22 06/29/22 21:27 21:27 21:27 WBC 23.8 H RBC 4.42 L Hgb 14.2 Hct 42.0 MCV 95.1 MCH 32.2 MCHC 33.9 RDW 14.5 Plt Count 111 L Neut % (Auto) Not Reportable Lymph % (Auto) Not Reportable [place] % (Auto) Not Reportable Eos % (Auto) Not Reportable Baso % (Auto) Not Reportable Lymph # (Auto) Not Reportable [place] # (Auto) Not Reportable Baso # (Auto) Not Reportable Total Counted 100 Seg Neutrophils % 86.0 H Band Neutrophils % 10.0 H Lymphocytes % (Manual) 2.0 L Monocytes % (Manual) 1.0 L Eosinophils % (Manual) 1.0 L Neutrophils # (Manual) 44442 H RBC Morphology Normal morphology Anisocytosis Sodium 125 L Potassium 6.0 H Chloride 91 L Carbon Dioxide 22 BUN 33 H Creatinine 1.77 H Estimated GFR 39 L BUN/Creatinine Ratio 18.6 Glucose 100 Lactate Calcium 9.8 Magnesium 1.7 Total Bilirubin 2.6 H AST 409 H ALT 405 H Alkaline Phosphatase 217 H Total Creatine Kinase 24 L CK-MB (CK-2) TNP CK-MB (CK-2) Rel Index TNP Troponin I < 0.012 NT-Pro-B Natriuret Pep 9610 H Total Protein 7.3 Albumin 3.6 Globulin 3.7 Albumin/Globulin Ratio 1.0 Lipase 29 Procalcitonin 1.07 H TSH Urine Color Urine Appearance Urine pH Ur Specific [place] Urine Protein Urine Glucose (UA) Urine Ketones Urine Occult Blood Urine Nitrate Urine Bilirubin Ur Bilirubin Confirm Urine Urobilinogen Ur Leukocyte Esterase Urine RBC Urine WBC Ur Squamous Epith Cells Urine Bacteria Hyaline Casts WBC Casts Ur Culture Indicated? Nasal Screen MRSA (PCR) Digoxin 0.5 L SARS-CoV-2 (PCR) 06/29/22 06/29/22 06/29/22 21:27 21:27 21:31 WBC RBC Hgb Hct MCV MCH MCHC RDW Plt Count Neut % (Auto) Lymph % (Auto) [place] % (Auto) Eos % (Auto) Baso % (Auto) Lymph # (Auto) [place] # (Auto) Baso # (Auto) Total Counted Seg Neutrophils % Band Neutrophils % Lymphocytes % (Manual) Monocytes % (Manual) Eosinophils % (Manual) Neutrophils # (Manual) RBC Morphology Anisocytosis Sodium Potassium Chloride Carbon Dioxide BUN Creatinine Estimated GFR BUN/Creatinine Ratio Glucose Lactate 1.7 Calcium Magnesium Total Bilirubin AST ALT Alkaline Phosphatase Total Creatine Kinase CK-MB (CK-2) CK-MB (CK-2) Rel Index Troponin I NT-Pro-B Natriuret Pep Total Protein Albumin Globulin Albumin/Globulin Ratio Lipase Procalcitonin TSH Urine Color Yellow Urine Appearance Clear Urine pH 5.0 Ur Specific [place] <=1.005 Urine Protein 1+ H Urine Glucose (UA) Negative Urine Ketones Negative Urine Occult Blood Negative Urine Nitrate Negative Urine Bilirubin 1+ H Ur Bilirubin Confirm Negative Urine Urobilinogen 0.2 Ur Leukocyte Esterase Trace H Urine RBC 0-1/hpf Urine WBC 1-5/hpf Ur Squamous Epith Cells 0-1 /hpf Urine Bacteria Few (2-10) H Hyaline Casts 0-1/lpf WBC Casts 1-5/lpf H Ur Culture Indicated? Specimen cultured Nasal Screen MRSA (PCR) Digoxin SARS-CoV-2 (PCR) Negative 06/30/22 06/30/22 06/30/22 00:43 06:05 06:19 WBC 19.2 H RBC 4.11 L Hgb 13.2 L Hct 38.8 L MCV 94.3 MCH 32.1 MCHC 34.0 RDW 14.8 Plt Count 106 L Neut % (Auto) Not Reportable Lymph % (Auto) Not Reportable [place] % (Auto) Not Reportable Eos % (Auto) Not Reportable Baso % (Auto) Not Reportable Lymph # (Auto) Not Reportable [place] # (Auto) Not Reportable Baso # (Auto) Not Reportable Total Counted 100 Seg Neutrophils % 79.0 H Band Neutrophils % 5.0 Lymphocytes % (Manual) 8.0 L Monocytes % (Manual) 6.0 Eosinophils % (Manual) 2.0 Neutrophils # (Manual) 20439 H RBC Morphology See below Anisocytosis 1+ H Sodium Potassium Chloride Carbon Dioxide BUN Creatinine Estimated GFR BUN/Creatinine Ratio Glucose Lactate Calcium Magnesium Total Bilirubin AST ALT Alkaline Phosphatase Total Creatine Kinase CK-MB (CK-2) CK-MB (CK-2) Rel Index Troponin I NT-Pro-B Natriuret Pep Total Protein Albumin Globulin Albumin/Globulin Ratio Lipase Procalcitonin TSH 1.29 Urine Color Urine Appearance Urine pH Ur Specific [place] Urine Protein Urine Glucose (UA) Urine Ketones Urine Occult Blood Urine Nitrate Urine Bilirubin Ur Bilirubin Confirm Urine Urobilinogen Ur Leukocyte Esterase Urine RBC Urine WBC Ur Squamous Epith Cells Urine Bacteria Hyaline Casts WBC Casts Ur Culture Indicated? Nasal Screen MRSA (PCR) Negative for mrsa Digoxin SARS-CoV-2 (PCR) 06/30/22 06:19 WBC RBC Hgb Hct MCV MCH MCHC RDW Plt Count Neut % (Auto) Lymph % (Auto) [place] % (Auto) Eos % (Auto) Baso % (Auto) Lymph # (Auto) [place] # (Auto) Baso # (Auto) Total Counted Seg Neutrophils % Band Neutrophils % Lymphocytes % (Manual) Monocytes % (Manual) Eosinophils % (Manual) Neutrophils # (Manual) RBC Morphology Anisocytosis Sodium 123 L Potassium 5.1 Chloride 90 L Carbon Dioxide 26 BUN 34 H Creatinine 1.84 H Estimated GFR 37 L BUN/Creatinine Ratio 18.5 Glucose 101 Lactate Calcium 9.1 Magnesium 1.5 L Total Bilirubin 2.0 H AST 393 H ALT 384 H Alkaline Phosphatase 201 H Total Creatine Kinase CK-MB (CK-2) CK-MB (CK-2) Rel Index Troponin I NT-Pro-B Natriuret Pep Total Protein 6.0 L Albumin 2.9 L Globulin 3.1 Albumin/Globulin Ratio 0.9 L Lipase Procalcitonin TSH Urine Color Urine Appearance Urine pH Ur Specific [place] Urine Protein Urine Glucose (UA) Urine Ketones Urine Occult Blood Urine Nitrate Urine Bilirubin Ur Bilirubin Confirm Urine Urobilinogen Ur Leukocyte Esterase Urine RBC Urine WBC Ur Squamous Epith Cells Urine Bacteria Hyaline Casts WBC Casts Ur Culture Indicated? Nasal Screen MRSA (PCR) Digoxin SARS-CoV-2 (PCR) [facility] Medical History Alcohol abuse Congestive heart failure Depression Esophageal ulceration Essential hypertension GERD (gastroesophageal reflux disease) Hypothyroidism Mixed hyperlipidemia Venous stasis Surgical History Status post appendectomy Family History (Updated 06/30/22 @ 11:20 by Roma Bennett DO) Other Congestive heart failure Social History household members: spouse Tobacco & Substance Use Smoking Status: Never smoker alcohol intake: never Assessment & Plan Assessment & Plan narrative: Acute on chronic HFrEF: Prior echo Sep 2021 with moderately reduced EF, 35%. Suspect a component of tachycardia induced; ischemia yet to be ruled out. Noncompliance with home medications and water restriction likely also contributing. Clinically he's significantly volume overloaded. A repeat echo is pending. Medical managment limited by a relative hypotension. Reluctant to start milrinone or dobutamine due to BP, tachycardia and frequent PVCs. Switch furosemide to a bumetanide gtt at 0.5 mg/hr. Strict Is/Os and daily weight measurement. Change metoprolol succinate to 25 mg BID. Decrease lisinopril to 2.5 mg daily. Hold the spironolactone due to hyperkalemia. Monitor BMP given GLENROY and lyte abnormalities. Keep K >4 and Mag >2. Atrial fibrillation: HR uncontrolled. Digoxin level is low. Reload with digoxin 250 mcg Q 6 for 4 doses. Will not use amiodarone in the setting of transaminitis. Also he's not anticoagulated by choice. LE edema and wounds: Agree with a wound care consult. Consider wrapping legs if wound care agrees. Hypothyroidism: Awaiting the TSH. COVID-19 COVID-19 status: Negative Time Spent With Patient Time with patient: 30 to 49 minutes with 50% spent counseling/coordinating care Critical Care time: I spent a total of [35] minutes of critical care time on this patient's care today; this time is exclusive of procedural time.
--- NOTE | 2022-06-30 13:44 | PM.CN.EICU ---
History of Present Illness Consult details IF CAMERA ACTIVATED, patient seen via real-time interactive audiovisual communication: Camera activated Date Patient Seen: 06/30/22 Chief complaint: wheezing/abd pain/weak x2 days Reason for consult: A fib w/ RVR Requesting provider: Anabel Montana Consent obtained for tele-tip fixer care: Yes Patient Location: ICU Provider location (State): [place] Other participants/roles: RN Narrative: Patient is a 77 year old male with history of A fib, CHF, and chronic venous stasis who presents with shortness of breath and generalized weakness. Associated with nonproductive cough. In ER, labs notable for hyponatremia, hyperkalemia, abnormal LFTs, and GLENROY. He was also found to be in A fib w/ RVR. Patient was started on lasix IV and cardiology consulted for further management. Admitted to ICU as acute care and late this morning patient went into A fib w/ RVR. Mg 1.5 which he was given 2 grams of magnesium sulfate. Cardiology recommended decreasing metoprolol to 25 and start bumex infusion. Evaluated patient at bedside and he is hard of hearing but on room air and not acute distress. HR ~129s and SBP ~110. FORMERLY [facility] Medical History Alcohol abuse Congestive heart failure Depression Esophageal ulceration Essential hypertension GERD (gastroesophageal reflux disease) Hypothyroidism Mixed hyperlipidemia Venous stasis Surgical History Status post appendectomy Family History (Updated 06/30/22 @ 11:20 by Roma Bennett DO) Other Congestive heart failure Social History household members: spouse Smoking Status: Never smoker alcohol intake: never Current Medications Current Medications Medications: Home Medications pantoprazole 40 mg tablet,delayed release 40 mg PO DAILY #30 tabs 03/03/21 [Rx Confirmed 10/26/21] pravastatin 20 mg tablet 40 mg PO BEDTIME #30 tabs 03/03/21 [Rx Confirmed 10/26/21] tamsulosin 0.4 mg capsule (Flomax) 0.8 mg PO DAILY #60 caps 07/28/21 [Rx Confirmed 10/26/21] levothyroxine 125 mcg tablet (Synthroid) 150 mcg PO DAILY@0600 10/26/21 [History Confirmed 10/26/21] digoxin 125 mcg (0.125 mg) tablet 0.25 mg PO DAILY@1700 #90 tabs 11/01/21 [Rx] furosemide 20 mg tablet (Lasix) 10 mg PO BID #60 tabs 11/01/21 [Rx] lisinopril 5 mg tablet 2.5 mg PO DAILY #90 tabs 11/01/21 [Rx] metoprolol succinate 50 mg tablet,extended release 24 hr 50 mg PO DAILY #90 tabs 11/01/21 [Rx] potassium chloride 20 mEq tablet,extended release(part/cryst) (Klor-Con M) 40 meq PO DAILYCC #30 tabs 11/01/21 [Rx] spironolactone 25 mg tablet 25 mg PO DAILY #30 tabs 11/01/21 [Rx] Visit Medications (administered) Generic Name Dose Route Start Last Admin Trade Name Freq PRN Reason Stop Dose Admin Acetaminophen 650 mg 06/30/22 08:25 06/30/22 09:54 Acetaminophen 325 Mg Tablet PO 650 mg Q6HR PRN Administration Fever/Mild Pain (1-3) Enoxaparin Sodium 40 mg 06/30/22 09:30 06/30/22 09:30 Enoxaparin 40 Mg/0.4 Ml Syringe SUBCUT 40 mg DAILY EVARISTO Administration Ceftriaxone Sodium 1,000 mg/ 100 mls @ 200 mls/hr 06/30/22 09:00 06/30/22 09:25 Sodium Chloride IV 200 mls/hr Q24H EVARISTO Administration Lisinopril 2.5 mg 06/30/22 09:00 06/30/22 11:00 Lisinopril 5 Mg Tablet PO Not Given BID EVARISTO Pantoprazole Sodium 40 mg 06/30/22 09:00 06/30/22 09:24 Pantoprazole 40 Mg Vial IV 40 mg DAILY EVARISTO Administration Sennosides 8.6 mg 06/30/22 09:15 06/30/22 09:54 Sennosides 8.6 Mg Tablet PO 8.6 mg DAILY EVARISTO Administration Sodium Chloride 10 ml 06/30/22 09:00 06/30/22 09:26 Sodium Chloride 0.9% Flush IV 10 ml BID EVARISTO Administration Exam Vital Signs (past 8 hours): - 06/30/22 06:37 10/03/22 06:00 06/30/22 06:30 Temperature Pulse Rate 124 H 124 H 125 H Respiratory Rate 36 H 23 Blood Pressure 106/57 L Pulse Oximetry Oxygen Delivery Method Oxygen Flow Rate 06/30/22 06:36 06/30/22 06:36 06/30/22 06:30 Temperature 98.3 F Pulse Rate 124 H Respiratory Rate 27 H Blood Pressure 106/57 L Pulse Oximetry 97 Oxygen Delivery Method Oxygen Flow Rate 0 06/30/22 08:06 06/30/22 07:00 06/30/22 07:30 Temperature 98.4 F Pulse Rate 124 H 124 H Respiratory Rate 25 H 26 H Blood Pressure Pulse Oximetry Oxygen Delivery Method Oxygen Flow Rate 06/30/22 08:00 06/30/22 08:08 06/30/22 08:08 Temperature Pulse Rate 127 H 130 H Respiratory Rate 27 H 26 H Blood Pressure 100/61 Pulse Oximetry 98 97 Oxygen Delivery Method Oxygen Flow Rate 06/30/22 08:30 06/30/22 07:05 06/30/22 09:00 Temperature Pulse Rate 130 H 124 H 130 H Respiratory Rate 25 H 24 Blood Pressure 106/57 L Pulse Oximetry 95 96 Oxygen Delivery Method Oxygen Flow Rate 06/30/22 09:30 06/30/22 07:00 06/30/22 10:00 Temperature Pulse Rate 131 H Respiratory Rate 23 Blood Pressure 101/62 Pulse Oximetry Oxygen Delivery Method Room Air Oxygen Flow Rate 06/30/22 10:00 06/30/22 10:30 06/30/22 10:47 Temperature Pulse Rate 129 H 127 H Respiratory Rate 27 H 25 H Blood Pressure 94/70 Pulse Oximetry 92 98 Oxygen Delivery Method Oxygen Flow Rate 06/30/22 10:47 06/30/22 11:00 06/30/22 11:00 Temperature Pulse Rate 127 H 124 H Respiratory Rate 27 H 25 H Blood Pressure 90/54 L Pulse Oximetry 98 98 Oxygen Delivery Method Oxygen Flow Rate 06/30/22 11:18 06/30/22 11:18 06/30/22 11:30 Temperature Pulse Rate 124 H Respiratory Rate 24 Blood Pressure 99/57 L 99/57 L Pulse Oximetry 97 Oxygen Delivery Method Oxygen Flow Rate 06/30/22 11:30 06/30/22 12:00 06/30/22 12:00 Temperature Pulse Rate 126 H 126 H Respiratory Rate 25 H 24 Blood Pressure 92/67 Pulse Oximetry 97 Oxygen Delivery Method Oxygen Flow Rate Oxygen Delivery Method Room Air Oxygen Flow Rate 0 Objective Labs Result Diagrams: 06/30/22 06:19 06/30/22 06:19 Labs: Laboratory Results - last 24 hr 06/29/22 06/29/22 06/29/22 21:27 21:27 21:27 WBC 23.8 H RBC 4.42 L Hgb 14.2 Hct 42.0 MCV 95.1 MCH 32.2 MCHC 33.9 RDW 14.5 Plt Count 111 L Neut % (Auto) Not Reportable Lymph % (Auto) Not Reportable [place] % (Auto) Not Reportable Eos % (Auto) Not Reportable Baso % (Auto) Not Reportable Lymph # (Auto) Not Reportable [place] # (Auto) Not Reportable Baso # (Auto) Not Reportable Total Counted 100 Seg Neutrophils % 86.0 H Band Neutrophils % 10.0 H Lymphocytes % (Manual) 2.0 L Monocytes % (Manual) 1.0 L Eosinophils % (Manual) 1.0 L Neutrophils # (Manual) 12993 H RBC Morphology Normal morphology Anisocytosis Sodium 125 L Potassium 6.0 H Chloride 91 L Carbon Dioxide 22 BUN 33 H Creatinine 1.77 H Estimated GFR 39 L BUN/Creatinine Ratio 18.6 Glucose 100 Lactate Calcium 9.8 Magnesium 1.7 Total Bilirubin 2.6 H AST 409 H ALT 405 H Alkaline Phosphatase 217 H Total Creatine Kinase 24 L CK-MB (CK-2) TNP CK-MB (CK-2) Rel Index TNP Troponin I < 0.012 NT-Pro-B Natriuret Pep 9610 H Total Protein 7.3 Albumin 3.6 Globulin 3.7 Albumin/Globulin Ratio 1.0 Lipase 29 Procalcitonin 1.07 H TSH Urine Color Urine Appearance Urine pH Ur Specific [place] Urine Protein Urine Glucose (UA) Urine Ketones Urine Occult Blood Urine Nitrate Urine Bilirubin Ur Bilirubin Confirm Urine Urobilinogen Ur Leukocyte Esterase Urine RBC Urine WBC Ur Squamous Epith Cells Urine Bacteria Hyaline Casts WBC Casts Ur Culture Indicated? Nasal Screen MRSA (PCR) Digoxin 0.5 L SARS-CoV-2 (PCR) 06/29/22 06/29/22 06/29/22 21:27 21:27 21:31 WBC RBC Hgb Hct MCV MCH MCHC RDW Plt Count Neut % (Auto) Lymph % (Auto) [place] % (Auto) Eos % (Auto) Baso % (Auto) Lymph # (Auto) [place] # (Auto) Baso # (Auto) Total Counted Seg Neutrophils % Band Neutrophils % Lymphocytes % (Manual) Monocytes % (Manual) Eosinophils % (Manual) Neutrophils # (Manual) RBC Morphology Anisocytosis Sodium Potassium Chloride Carbon Dioxide BUN Creatinine Estimated GFR BUN/Creatinine Ratio Glucose Lactate 1.7 Calcium Magnesium Total Bilirubin AST ALT Alkaline Phosphatase Total Creatine Kinase CK-MB (CK-2) CK-MB (CK-2) Rel Index Troponin I NT-Pro-B Natriuret Pep Total Protein Albumin Globulin Albumin/Globulin Ratio Lipase Procalcitonin TSH Urine Color Yellow Urine Appearance Clear Urine pH 5.0 Ur Specific [place] <=1.005 Urine Protein 1+ H Urine Glucose (UA) Negative Urine Ketones Negative Urine Occult Blood Negative Urine Nitrate Negative Urine Bilirubin 1+ H Ur Bilirubin Confirm Negative Urine Urobilinogen 0.2 Ur Leukocyte Esterase Trace H Urine RBC 0-1/hpf Urine WBC 1-5/hpf Ur Squamous Epith Cells 0-1 /hpf Urine Bacteria Few (2-10) H Hyaline Casts 0-1/lpf WBC Casts 1-5/lpf H Ur Culture Indicated? Specimen cultured Nasal Screen MRSA (PCR) Digoxin SARS-CoV-2 (PCR) Negative 06/30/22 06/30/22 06/30/22 00:43 06:05 06:19 WBC 19.2 H RBC 4.11 L Hgb 13.2 L Hct 38.8 L MCV 94.3 MCH 32.1 MCHC 34.0 RDW 14.8 Plt Count 106 L Neut % (Auto) Not Reportable Lymph % (Auto) Not Reportable [place] % (Auto) Not Reportable Eos % (Auto) Not Reportable Baso % (Auto) Not Reportable Lymph # (Auto) Not Reportable [place] # (Auto) Not Reportable Baso # (Auto) Not Reportable Total Counted 100 Seg Neutrophils % 79.0 H Band Neutrophils % 5.0 Lymphocytes % (Manual) 8.0 L Monocytes % (Manual) 6.0 Eosinophils % (Manual) 2.0 Neutrophils # (Manual) 59995 H RBC Morphology See below Anisocytosis 1+ H Sodium Potassium Chloride Carbon Dioxide BUN Creatinine Estimated GFR BUN/Creatinine Ratio Glucose Lactate Calcium Magnesium Total Bilirubin AST ALT Alkaline Phosphatase Total Creatine Kinase CK-MB (CK-2) CK-MB (CK-2) Rel Index Troponin I NT-Pro-B Natriuret Pep Total Protein Albumin Globulin Albumin/Globulin Ratio Lipase Procalcitonin TSH 1.29 Urine Color Urine Appearance Urine pH Ur Specific [place] Urine Protein Urine Glucose (UA) Urine Ketones Urine Occult Blood Urine Nitrate Urine Bilirubin Ur Bilirubin Confirm Urine Urobilinogen Ur Leukocyte Esterase Urine RBC Urine WBC Ur Squamous Epith Cells Urine Bacteria Hyaline Casts WBC Casts Ur Culture Indicated? Nasal Screen MRSA (PCR) Negative for mrsa Digoxin SARS-CoV-2 (PCR) 06/30/22 06:19 WBC RBC Hgb Hct MCV MCH MCHC RDW Plt Count Neut % (Auto) Lymph % (Auto) [place] % (Auto) Eos % (Auto) Baso % (Auto) Lymph # (Auto) [place] # (Auto) Baso # (Auto) Total Counted Seg Neutrophils % Band Neutrophils % Lymphocytes % (Manual) Monocytes % (Manual) Eosinophils % (Manual) Neutrophils # (Manual) RBC Morphology Anisocytosis Sodium 123 L Potassium 5.1 Chloride 90 L Carbon Dioxide 26 BUN 34 H Creatinine 1.84 H Estimated GFR 37 L BUN/Creatinine Ratio 18.5 Glucose 101 Lactate Calcium 9.1 Magnesium 1.5 L Total Bilirubin 2.0 H AST 393 H ALT 384 H Alkaline Phosphatase 201 H Total Creatine Kinase CK-MB (CK-2) CK-MB (CK-2) Rel Index Troponin I NT-Pro-B Natriuret Pep Total Protein 6.0 L Albumin 2.9 L Globulin 3.1 Albumin/Globulin Ratio 0.9 L Lipase Procalcitonin TSH Urine Color Urine Appearance Urine pH Ur Specific [place] Urine Protein Urine Glucose (UA) Urine Ketones Urine Occult Blood Urine Nitrate Urine Bilirubin Ur Bilirubin Confirm Urine Urobilinogen Ur Leukocyte Esterase Urine RBC Urine WBC Ur Squamous Epith Cells Urine Bacteria Hyaline Casts WBC Casts Ur Culture Indicated? Nasal Screen MRSA (PCR) Digoxin SARS-CoV-2 (PCR) Assessment & Plan Assessment & Plan narrative: NEURO: -- Seek PT/OT and OOB as tolerated RESP: -- ON room air -- CXR showed bilateral cephalization -- Cont diuresis to seek net negative fluid balance -- Goal SpO2 > 90% CVS: # A fib w/ RVR -- Possible related to sepsis vs noncompliance -- Agree with diuresis to seek net negative fluid balance -- Switch metoprolol XL to IR 25 BID -- On digoxin load per cardiology -- High lytes goal (MG >2 and K >4) -- CHADVASC score 4 -> needs systemic AC; recommend primary bedside team to discuss risks/benefits/alternative of systemic AC for stroke ppx # Hx of HfrEF -- Appears hypervolemia given LE swelling -- Agree with diuresis -- Cardiology following -- Pending TTE : # GLENROY -- Secondary to renal venous congestion -- Agree with diuresis -- Avoid nephrotoxin agents -- DC lisinopril -- Monitor UOP -- Daily BMP # Hypnatremia -- Secondary to hypervolemia -- Agree w/ diuresis -- Recommend checking urine Na, osm, serum osm -- Pending TSH ENDO: -- GOal BS < 180 D/w RN and patient at bedside. Time Spent With Patient Critical Care time: I spent a total of 32 minutes of critical care time on this patient's care today; this time is exclusive of procedural time.
--- NOTE | 2022-06-30 14:01 | DIET.CONS ---
Dietary Consultation Note Admission Date: 06/29/2022 23:38 Assessment: 77y M admitted with Afib c RVR and LE wounds referred to nutrition for LE wounds. RD met c pt in room, pt sitting propped in chair, no bed in room, pt states hx not comfortable in bed, nursing attempts to coax him into a bed so they can properly offload pressure areas. Pt in fair amount of distress with audible wheezing during interview and bright red LEs from midcalf down with big fluid filled blisters on feet. Pt being diuresed for CHF exacerbation with care taken regarding pts GLENROY on CKD. Pt weight hx was near 100kg until 2019, then jumped to 107 which likely represents his dry weight. Pt states he eats two meals daily, one at 7pm and one at 11pm. Pt states he will not eat meat while hospitalized because he always uses digestive enzymes while eating meats and was told he could not while here. PCP please consider allowing home digestive enzymes while in hospital to support protein needs for wound healing. Kitchen will send B/L/D daily with snack loaded onto dinner plate to accommodate pts nighttime meal. Will send vegetarian meals unless otherwise preferred by patient with protein provided through cheese and cottage cheese- however, portions will be limited by pts sodium restriction. Ht: 175.26 cm Wt: 113.398 kg BMI: 36.9 UBW: 107kg MNA: 11 Ej Score: 16 Diet: 06/29/22 Breakfast Heart Healthy Diet Diet Modifications: Sodium Level: 2 gm Sodium Nutrition Percent Meal Consumed 100% 06/30/22 09:15 Labs: RBC 4.11 X10^6/uL (4.5-5.9) L 06/30/22 06:19 Hgb 13.2 g/dL (13.5-17.5) L 06/30/22 06:19 Hct 38.8 % (41-53) L 06/30/22 06:19 Creatinine 1.84 mg/dL (0.66-1.25) H 06/30/22 06:19 Lactate 1.7 mmol/L (0.7-2.1) 06/29/22 21:31 NT-Pro-B Natriuret Pep 9610 pg/mL (<450) H 06/29/22 21:27 Monitoring/Evaluations: POs Electronically Signed by: Jillian Browning 06/30/22 14:01 Clinical Dietitian [address] [address]
[2022-06-30] MEDS: BUMETANIDE DRIP IV (14:25)
[2022-06-30] MEDS: SODIUM CHLORIDE 0.9% IV (14:25)
--- NOTE | 2022-06-30 14:43 | PC.RNWOUND ---
Bilateral Lower Extremities Right Lateral Malleolus Bulla Patient resting in bed, turns to left side with assist. There is a foam dressing in place on the gluteal cleft covering a 2 x 0.2 x 0.05cm partial-thickness area of linear skin breakdown in the gluteal cleft, appearing to be from intertriginous dermatitis. Foam dressing is gently replaced, primary nurse aware. No other skin breakdown noted to the right sacrogluteal area at this time. Patient has redness to the bilateral lower legs (gaiter areas) and feet with 2+ pitting pedal edema bilaterally. There is sparse to no hair growth noted to the legs and feet, thin, shiny skin consistent with the appearance of arterial insufficiency, however feet are warm, cap refill less than 2 seconds to bilateral great toes, noted history of venous stasis for which patient has compression wraps apparently obtained for him by home health nurse. It appears from the redness to the left lower extremity that at some point these wraps became too tight causing pressure injury/discoloration to the skin which could still be declaring itself. There is a 6 x 8cm intact bulla to right lateral malleolus of which skin to the periwound is painted with no-string skin prep. Dorsalis pedis and posterior tibial pulses are not palpable at this time but are located (with primary nurse) using doppler. There is a Right lower extremity 2 x 1.5cm area of maroon discoloration with intact skin and distal right lateral dorsal foot has scattered small areas of maroon discoloration (see photo above), also with intact skin. Toenails appear thickened. Unable to comfortably elevate legs at this time to check for pallor with elevation. Legs are gently cleansed with bath wipes per patient request and heels floated on longitudinally-placed pillows.
--- NOTE | 2022-06-30 14:46 | CM.DANOTE ---
Patient is a 77 yo male who was admitted on 06/29/22 for CHF exac and fluid overload. Pt has [facility] ADV for insurance and his PCP is Dr. Zackary Hoover. EMR was reviewed. Per , pt with a hx of AFIB, leg wounds that are wrapped, and admitted for CHF exac, SOB, GLENROY. PT ordered and pending. Wound RN orders placed and Zofia currently bedside assessing pt and his leg wounds. Pt was last admitted in Sep 2021 this year and was discharged home with Chaitanya KANG. SW met briefly bedside with pt who is FOND DU LAC and has a hearing device but pt quite tired and having a hard time staying awake. Pt confirms that he still resides in [place] with his spouse, Avani at the [facility]. He has a son that lives next door and helps with meals. Patient has a home health nurse that comes in about 3 times a week for wound care, he has compression wraps due to edema. Pt still uses a walking stick that he made himself, because a walker doesn't work in his trailer. Pt's spouse is somewhat frail herself as well. SELINA confirmed with Nancy KANG that pt remains open for JORGE LUIS RN for wound care and if pt is Inpt Status would need Resume Orders. SELINA faxed H&P to Nancy KANG to review. Per CNC SERVICE ENGINEER and RN, they were able to assist pt with minimal assist from chair into the bed for off loading of his legs and pt was able to pivot and shuffle his legs to get into bed. Plan: SW to follow closely for PT eval and recommendations to determine if pt remains safe for d/c to home with Chaitanya KANG RN and maybe add PT and any further identified needs and r/o SNF. If SNF needed, OT would need to be ordered towards attempting [employer] SNF auth. DAVIE Monteiro Discharge Planning/Care Management CM Discharge Assessment Start: 06/30/22 14:43 Freq: Status: Active Protocol: Document 06/30/22 14:43 BF (Rec: 06/30/22 14:46 BF [id number]) Discharge Planning Assessment Assigned Blueprint Blocker DAVIE Coronado DPOA/Assigned Designee Name spouse Avani and Dtr Neva Contact Information [phone] Advance Directives? Yes Advance Directives on File Yes History Provided By Patient,Significant Other, Medical Record Has Patient been admitted in last 30 No days? Comment last admitted in Sep 2021 and went home with Chaitanya KANG Prior Living Arrangements Mobile home Household Members spouse Type of transporation used prior to Relies on Others admit Independent with ADL's Yes: somewhat Is patient alert and oriented? Yes Needs Assistance With Meal Prep,Managing Medications ,Home Chores / Shopping Caregiver for Another No DME Already Rented / Owned Cane Comment Patient uses a walking stick, since he lives in a trailer Comment Pending PT eval and recommendations Barriers to Discharge No Comment Patient indicated that he does live spouse, son next door. Discharge Plan Home with Home Health [facility] Physical Therapy,Home Health Nurse Transportation Arrangement Family Referrals Initiated Home Health Additional Comment Pending PT eval and recommendations Whiteboard Updated in Patient Room with Yes name and ext. # of Blueprint Blocker Review Status In Process Please Provide Date Initial DC 06/30/22 Assessment Was Performed Next Review Type Continued Stay Review
--- NOTE | 2022-06-30 15:30 | PT-IP ANOTE ---
Per BUSINESS OFFICE TECHNOLOGY INSTRUCTOR, pt not yet medically stable for PT. Will follow up Thursday.
--- NOTE | 2022-06-30 15:32 | DI.US.S_ITS ---
PROCEDURE: US PERIPH VENOUS LOW EXTREM BI INDICATIONS: BILATERAL EDEMA TECHNIQUE: Real-time imaging, as well as color and pulse Doppler interrogation, were performed of the deep veins of both legs from the inguinal ligament to the popliteal fossa. COMPARISON: None. FINDINGS: Right: Internal echoes and noncompressibility noted in the mid to distal superficial femoral vein. Surrounding soft tissue edema present. Remainder of the visualized veins in the right thigh are patent Left: The common femoral, femoral and popliteal veins are normally compressible, and free of intraluminal thrombus. Color and pulse Doppler demonstrate normal phasic intravascular flow. There is normal augmentation response to distal compression maneuver. IMPRESSION: Positive DVT in the right mid to distal SFV No evidence of deep venous thrombosis in the left lower extremity Approved by: Fletcher Ponce M.D. on 06/30/2022 at 17:44
[2022-06-30] MEDS: DIGOXIN 500 MCG/2 ML AMPUL 250 MCG IV ×2 (15:36→20:48)
[2022-06-30 16:51] LABS: BUN Creatinine Ratio 17.9 (6-22); Blood Urea Nitrogen 35 mg/dL (9-20); Calcium 9.6 mg/dL (8.4-10.2); Carbon Dioxide 23 mmol/L (22-32); Chloride 92 mmol/L (98-107); Estimated Glomerular Filt Rate 35 mL/min (>60); Glucose 113 mg/dL (80-110); HEMOLYSIS < 15 (0-50); Phosphorous 3.4 mg/dL (2.3-3.7); Potassium 4.5 mmol/L (3.4-5.1); Sodium 126 mmol/L (137-145)
[2022-06-30 16:52] LABS: BUN Creatinine Ratio 18.8 (6-22); Blood Urea Nitrogen 36 mg/dL (9-20); Calcium 9.5 mg/dL (8.4-10.2); Carbon Dioxide 23 mmol/L (22-32); Chloride 92 mmol/L (98-107); Estimated Glomerular Filt Rate 35 mL/min (>60); Glucose 114 mg/dL (80-110); HEMOLYSIS < 15 (0-50); Potassium 4.5 mmol/L (3.4-5.1); Sodium 126 mmol/L (137-145)
[2022-06-30 17:21] LABS: Thyroid Stimulating Hormone 2.07 uIU/mL (0.47-4.68)
--- NOTE | 2022-06-30 19:12 | PM.EICU.INT ---
Teleintensivist Intervention Date/Time Was camera activated?: No Issue(s) Addressed Issue(s): Abnormal labs Other:: Notified by RN RLE venous duplex is positive for DVT. Intervention(s) Name(s): Discussed with RN to start heparin per VTE protocol and discontinue lovenox. Order placed and RN aware of treatment plan.
[2022-06-30 20:07] LABS: Add Manual Diff / Slide Review NO; Basophils Absolute Auto 0 /uL (0-100); Basophils Percent Auto 0.2 % (0-2); Eosinophils Absolute Auto 200 /uL (0-450); Eosinophils Percent Auto 0.7 % (2-4); Hematocrit 39.9 % (41-53); Hemoglobin 13.5 g/dL (13.5-17.5); Lymphocytes Absolute Auto 900 /uL (1100-4500); Lymphocytes Percent Auto 3.8 % (25-40); Mean Corpuscular HGB Conc 33.9 % (30-36); Mean Corpuscular Hemoglobin 32.1 PG (26-34); Mean Corpuscular Volume 94.7 fL (80-100); Monocytes Absolute Auto 700 /uL (0-900); Monocytes Percent Auto 2.8 % (3-14); Neutrophils Absolute Auto 22200 /uL (1500-7000); Neutrophils Percent Auto 92.5 % (50-75); Platelet Count 118 X10^3/uL (150-400); Red Blood Cell Count 4.21 X10^6/uL (4.5-5.9); Red Cell Distribution Width 14.5 % (11.6-14.8)
[2022-06-30 20:13] LABS: INR 1.2 (0.9-1.3); Prothrombin Time 13.9 SECONDS (10.1-12.7)
--- NOTE | 2022-06-30 20:33 | PM.ICURNDS ---
- Date Patient Seen: 06/30/22 Time Patient Seen: 20:33 :: This patient was seen via real time interactive two-way audiovisual telecommunication. Note: Patient remains in A fib w/ RVR. Venous duplex positive for RLE DVT. Awaiting for PTT prior to starting heparin infusion. D/w KANDACE.
[2022-06-30 20:53] LABS: PTT Partial Thromboplastin Tim 34 SECONDS (26-36)
[2022-06-30] MEDS: HEPARIN 5,000 UNIT/ML VIAL 7500 UNIT IV (21:00)
[2022-06-30] MEDS: HEPARIN DRIP 25,000 UNIT/500 ML IV.SOLN 24 UNIT IV (21:00)
[2022-07-01] VITALS (38 sets, daily range): BP systolic 87–120; BP diastolic 52–87; PULSE 84–130; RESP 13–28; TEMP 36.4–37.1; O2SAT 93–98
[2022-07-01] MEDS: MELATONIN 3 MG TABLET 9 MG PO ×2 (00:39→19:58)
[2022-07-01] MEDS: DIGOXIN 500 MCG/2 ML AMPUL 250 MCG IV (03:09)
[2022-07-01 03:40] LABS: PTT Partial Thromboplastin Tim 55 SECONDS (26-36)
[2022-07-01] MEDS: HEPARIN 5,000 UNIT/ML VIAL 2000 UNIT IV ×2 (04:47→19:57)
[2022-07-01] MEDS: LEVOTHYROXINE 125 MCG TABLET PO (05:06)
[2022-07-01 05:22] LABS: Add Manual Diff / Slide Review NO; Basophils Absolute Auto 0 /uL (0-100); Basophils Percent Auto 0.2 % (0-2); Eosinophils Absolute Auto 400 /uL (0-450); Eosinophils Percent Auto 1.5 % (2-4); Hemoglobin 12.2 g/dL (13.5-17.5); Lymphocytes Absolute Auto 1200 /uL (1100-4500); Mean Corpuscular HGB Conc 33.8 % (30-36); Mean Corpuscular Hemoglobin 31.9 PG (26-34); Mean Corpuscular Volume 94.4 fL (80-100); Monocytes Absolute Auto 800 /uL (0-900); Monocytes Percent Auto 3.3 % (3-14); Neutrophils Absolute Auto 21600 /uL (1500-7000); Platelet Count 133 X10^3/uL (150-400); Red Blood Cell Count 3.82 X10^6/uL (4.5-5.9); Red Cell Distribution Width 14.5 % (11.6-14.8)
[2022-07-01 05:34] LABS: Alanine Aminotransferase 310 IU/L (<50); Albumin 2.7 g/dL (3.5-5.0); Albumin Globulin Ratio 0.9 (1.0-2.8); Alkaline Phosphatase 226 U/L (38-126); Aspartate Aminotransferase 217 IU/L (17-59); BUN Creatinine Ratio 21.5 (6-22); Bilirubin Total 1.7 mg/dL (0.2-1.3); Blood Urea Nitrogen 41 mg/dL (9-20); Calcium 9.3 mg/dL (8.4-10.2); Carbon Dioxide 23 mmol/L (22-32); Chloride 91 mmol/L (98-107); Estimated Glomerular Filt Rate 36 mL/min (>60); Globulin 3.1 g/dL (1.7-4.1); Glucose 108 mg/dL (80-110); HEMOLYSIS < 15 (0-50); Magnesium 1.8 mg/dL (1.6-2.3); Potassium 4.2 mmol/L (3.4-5.1); Sodium 125 mmol/L (137-145); Total Protein 5.8 g/dL (6.3-8.2)
[2022-07-01 05:42] LABS: NT-proBNP (BNP-Adult 18+) 8170 pg/mL (<450)
--- NOTE | 2022-07-01 08:37 | DI.RAD.S_ITS ---
PROCEDURE: XR CHEST 1V INDICATIONS: cough TECHNIQUE: One view of the chest was acquired. COMPARISON: [facility], CR, XR CHEST 1V, 10/25/2021, 14:21. [facility], CR, XR CHEST 2V, 02/15/2018, 19:19. [facility], CR, XR CHEST 1V, 06/29/2022, 22:26. FINDINGS: Surgical changes and devices: None. Lungs and pleura: An incomplete inspiratory result is noted, causing a crowded appearance to the lung markings. No focal infiltrates are seen. No pneumothorax or significant pleural effusions are seen. Mediastinum: Mediastinal contours appear normal. Heart size is normal. Atherosclerotic calcification of the aortic arch is noted. Bones and chest wall: Age-appropriate bony degenerative changes are seen. Mild dextroconvex scoliotic curvature is seen. No suspicious bony lesions. Overlying soft tissues appear unremarkable. IMPRESSION: Low lung volumes, without an acute abnormality seen by plain film. Dictated by: Zac Nichole M.D. on 07/01/2022 at 8:45 Approved by: Zac Nichole M.D. on 07/01/2022 at 8:46
[2022-07-01] MEDS: SENNOSIDES 8.6 MG TABLET PO (09:09)
[2022-07-01] MEDS: METOPROLOL IR 25 MG TABLET PO ×2 (09:09→19:58)
[2022-07-01] MEDS: PANTOPRAZOLE 40 MG VIAL IV (09:09)
[2022-07-01] MEDS: MAGNESIUM SULFATE 2 GM/50 ML PIGGYBACK IV (09:10)
[2022-07-01] MEDS: SODIUM CHLORIDE 0.9% FLUSH 10 ML IV ×2 (09:10→20:13)
--- NOTE | 2022-07-01 09:23 | PM.PN.EICU ---
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 Started on heparin infusion overnight. Slight rise in Cr which diuretic was held. BP improved this morning. Patient is hard of hearing. Awake and eating breakfast. Urine cx + GNR. Ceftriaxone switched to zosyn. Current Medications Current Medications Medications: Home Medications pantoprazole 40 mg tablet,delayed release 40 mg PO DAILY #30 tabs 03/03/21 [Rx Confirmed 10/26/21] pravastatin 20 mg tablet 40 mg PO BEDTIME #30 tabs 03/03/21 [Rx Confirmed 10/26/21] tamsulosin 0.4 mg capsule (Flomax) 0.8 mg PO DAILY #60 caps 07/28/21 [Rx Confirmed 10/26/21] levothyroxine 125 mcg tablet (Synthroid) 150 mcg PO DAILY@0600 10/26/21 [History Confirmed 10/26/21] digoxin 125 mcg (0.125 mg) tablet 0.25 mg PO DAILY@1700 #90 tabs 11/01/21 [Rx] furosemide 20 mg tablet (Lasix) 10 mg PO BID #60 tabs 11/01/21 [Rx] lisinopril 5 mg tablet 2.5 mg PO DAILY #90 tabs 11/01/21 [Rx] metoprolol succinate 50 mg tablet,extended release 24 hr 50 mg PO DAILY #90 tabs 11/01/21 [Rx] potassium chloride 20 mEq tablet,extended release(part/cryst) (Klor-Con M) 40 meq PO DAILYCC #30 tabs 11/01/21 [Rx] spironolactone 25 mg tablet 25 mg PO DAILY #30 tabs 11/01/21 [Rx] Visit Medications (administered) Generic Name Dose Route Start Last Admin Trade Name Freq PRN Reason Stop Dose Admin Acetaminophen 650 mg 06/30/22 08:25 06/30/22 21:00 Acetaminophen 325 Mg Tablet PO 650 mg Q6HR PRN Administration Fever/Mild Pain (1-3) Heparin Sodium/Dextrose 25,000 unit in 500 mls @ 24 mls/hr 06/30/22 19:15 07/01/22 04:49 Heparin Drip IV 1,300 unit/hr CONT EVARISTO 26 mls/hr Titration Protocol 1,200 UNIT/HR Magnesium Sulfate 2 gm in 50 mls @ 25 mls/hr 07/01/22 08:37 07/01/22 09:10 Magnesium Sulfate IV 07/01/22 10:36 25 mls/hr NOW ONE Administration Levothyroxine Sodium 125 mcg 07/01/22 06:00 07/01/22 05:06 Levothyroxine 125 Mcg Tablet PO 125 mcg DAILY@0600 EVARISTO Administration Melatonin 9 mg 06/30/22 23:45 07/01/22 00:39 Melatonin 3 Mg Tablet PO 9 mg BEDTIME EVARISTO Administration Metoprolol Tartrate 25 mg 07/01/22 09:00 07/01/22 09:09 Metoprolol Ir 25 Mg Tablet PO 25 mg BID EVARISTO Administration Pantoprazole Sodium 40 mg 06/30/22 09:00 07/01/22 09:09 Pantoprazole 40 Mg Vial IV 40 mg DAILY EVARISTO Administration Sennosides 8.6 mg 06/30/22 09:15 07/01/22 09:09 Sennosides 8.6 Mg Tablet PO 8.6 mg DAILY EVARISTO Administration Sodium Chloride 10 ml 06/30/22 09:00 07/01/22 09:10 Sodium Chloride 0.9% Flush IV 10 ml BID EVARISTO Administration Objective Labs Result Diagrams: 07/01/22 05:00 07/01/22 05:00 Labs: Laboratory Results - last 24 hr 06/30/22 06/30/22 06/30/22 16:10 16:10 16:10 WBC RBC Hgb Hct MCV MCH MCHC RDW Plt Count Neut % (Auto) Lymph % (Auto) [place] % (Auto) Eos % (Auto) Baso % (Auto) Neut # (Auto) Lymph # (Auto) [place] # (Auto) Eos # (Auto) Baso # (Auto) PT INR APTT Sodium 126 L 126 L Potassium 4.5 4.5 Chloride 92 L 92 L Carbon Dioxide 23 23 BUN 36 H 35 H Creatinine 1.92 H 1.96 H Estimated GFR 35 L 35 L BUN/Creatinine Ratio 18.8 17.9 Glucose 114 H 113 H Calcium 9.5 9.6 Phosphorus 3.4 Magnesium 2.0 Total Bilirubin AST ALT Alkaline Phosphatase NT-Pro-B Natriuret Pep Total Protein Albumin 3.0 L Globulin Albumin/Globulin Ratio TSH 2.07 D 06/30/22 06/30/22 06/30/22 19:45 19:45 19:45 WBC 24.0 H RBC 4.21 L Hgb 13.5 Hct 39.9 L MCV 94.7 MCH 32.1 MCHC 33.9 RDW 14.5 Plt Count 118 L Neut % (Auto) 92.5 H Lymph % (Auto) 3.8 L [place] % (Auto) 2.8 L Eos % (Auto) 0.7 L Baso % (Auto) 0.2 Neut # (Auto) 49309 H Lymph # (Auto) 900 L [place] # (Auto) 700 Eos # (Auto) 200 Baso # (Auto) 0 PT 13.9 H INR 1.2 APTT 34 Sodium Potassium Chloride Carbon Dioxide BUN Creatinine Estimated GFR BUN/Creatinine Ratio Glucose Calcium Phosphorus Magnesium Total Bilirubin AST ALT Alkaline Phosphatase NT-Pro-B Natriuret Pep Total Protein Albumin Globulin Albumin/Globulin Ratio TSH 07/01/22 07/01/22 07/01/22 03:10 05:00 05:00 WBC RBC Hgb Hct MCV MCH MCHC RDW Plt Count Neut % (Auto) Lymph % (Auto) [place] % (Auto) Eos % (Auto) Baso % (Auto) Neut # (Auto) Lymph # (Auto) [place] # (Auto) Eos # (Auto) Baso # (Auto) PT INR APTT 55 H D Sodium Potassium Chloride Carbon Dioxide BUN Creatinine Estimated GFR BUN/Creatinine Ratio Glucose Calcium Phosphorus Magnesium 1.8 Total Bilirubin AST ALT Alkaline Phosphatase NT-Pro-B Natriuret Pep 8170 H Total Protein Albumin Globulin Albumin/Globulin Ratio TSH 07/01/22 07/01/22 05:00 05:00 WBC 24.0 H RBC 3.82 L Hgb 12.2 L Hct 36.0 L MCV 94.4 MCH 31.9 MCHC 33.8 RDW 14.5 Plt Count 133 L Neut % (Auto) 90.0 H Lymph % (Auto) 5.0 L [place] % (Auto) 3.3 Eos % (Auto) 1.5 L Baso % (Auto) 0.2 Neut # (Auto) 99786 H Lymph # (Auto) 1200 [place] # (Auto) 800 Eos # (Auto) 400 Baso # (Auto) 0 PT INR APTT Sodium 125 L Potassium 4.2 Chloride 91 L Carbon Dioxide 23 BUN 41 H Creatinine 1.91 H Estimated GFR 36 L BUN/Creatinine Ratio 21.5 Glucose 108 Calcium 9.3 Phosphorus Magnesium Total Bilirubin 1.7 H AST 217 H ALT 310 H Alkaline Phosphatase 226 H NT-Pro-B Natriuret Pep Total Protein 5.8 L Albumin 2.7 L Globulin 3.1 Albumin/Globulin Ratio 0.9 L TSH Exam Vital Signs (past 8 hours): - 07/01/22 01:30 07/01/22 01:30 07/01/22 02:00 Temperature Pulse Rate 122 H Respiratory Rate 26 H Blood Pressure 107/58 L 100/57 L Pulse Oximetry 96 Oxygen Delivery Method Oxygen Flow Rate 07/01/22 02:00 07/01/22 03:00 07/01/22 03:01 Temperature Pulse Rate 125 H 123 H Respiratory Rate 25 H 24 Blood Pressure 90/53 L Pulse Oximetry 95 94 Oxygen Delivery Method Oxygen Flow Rate 07/01/22 03:01 07/01/22 03:09 07/01/22 03:08 Temperature Pulse Rate 120 H 112 H Respiratory Rate 24 Blood Pressure 97/64 97/64 Pulse Oximetry 95 Oxygen Delivery Method Oxygen Flow Rate 07/01/22 03:08 07/01/22 04:00 07/01/22 04:00 Temperature Pulse Rate 125 H 116 H Respiratory Rate 23 23 Blood Pressure 102/52 L Pulse Oximetry 95 95 Oxygen Delivery Method Oxygen Flow Rate 07/01/22 04:00 07/01/22 05:00 07/01/22 05:00 Temperature 98.8 F Pulse Rate 120 H Respiratory Rate 25 H Blood Pressure 89/61 L Pulse Oximetry 96 Oxygen Delivery Method Oxygen Flow Rate 07/01/22 04:00 07/01/22 05:03 07/01/22 05:03 Temperature Pulse Rate 118 H Respiratory Rate 26 H Blood Pressure 92/53 L Pulse Oximetry 97 Oxygen Delivery Method Room Air Oxygen Flow Rate 07/01/22 05:04 07/01/22 05:04 07/01/22 06:00 Temperature Pulse Rate 120 H 111 H Respiratory Rate 27 H 25 H Blood Pressure 90/54 L Pulse Oximetry 96 95 Oxygen Delivery Method Oxygen Flow Rate 07/01/22 06:01 07/01/22 06:01 07/01/22 07:00 Temperature Pulse Rate 117 H Respiratory Rate 28 H Blood Pressure 95/53 L 99/56 L Pulse Oximetry 96 Oxygen Delivery Method Oxygen Flow Rate 07/01/22 07:00 07/01/22 08:00 07/01/22 09:00 Temperature 97.9 F Pulse Rate 114 H 114 H 126 H Respiratory Rate 24 22 22 Blood Pressure 97/68 114/53 L Pulse Oximetry 95 96 96 Oxygen Delivery Method Oxygen Flow Rate 0 0 Oxygen Delivery Method Room Air Oxygen Flow Rate 0 Quality TeleICU VTE Deep Vein Thrombosis/Pulmonary Embolism Present on Admission: No Assessment & Plan Assessment & Plan narrative: NEURO: -- Needs PT/OT and OOB as tolerated RESP: -- ON room air -- CXR showed bilateral cephalization which has slightly improved from prior CXR -- Cont gentle diuresis to seek net negative fluid balance -- Goal SpO2 > 90% CVS: # A fib w/ RVR -- Possible related to sepsis, PE, and volume overload -- Discussed with Dr. [place] and recommend continuing gentle diuresis to seek net negative fluid balance -- Cont metoprolol IR 25 mg BID -- Recommend dc lisinopril given soft BP requiring metoprolol to be held -- Cont digoxin lper cardiology -- High lytes goal (MG >2 and K >4) -- CHADVASC score 4 -> on heparin infusion # Hx of HfrEF -- Agree with diuresis -- Cardiology following -- Pending TTE HEME: # RLE DVT -- On heparin infusion -- Encourage early mobility : # GLENROY -- Secondary to renal venous congestion -- Agree with diuresis -- Avoid nephrotoxin agents -- Recommend holding lisinopril due to GLENROY -- Monitor UOP -- Daily BMP # Hypnatremia -- Secondary to hypervolemia -- Agree w/ diuresis -- Recommend checking urine Na, osm, serum osm -- Pending TSH GI: # Abnormal LFTs -- Secondary to hepatic congestion -- Agree w/ diuresis -- Trend daily LFTs ENDO: -- GOal BS < 180 D/w Dr. Montana, RN, and patient at bedside. Time Spent With Patient Critical Care time: I spent a total of 31 minutes of critical care time on this patient's care today; this time is exclusive of procedural time.
[2022-07-01] MEDS: SODIUM CHLORIDE 0.9% IV (09:37)
[2022-07-01] MEDS: BUMETANIDE DRIP IV (09:37)
[2022-07-01 09:40] LABS: Creatine Kinase 31 U/L (55-170)
[2022-07-01 09:43] LABS: Sodium Urine Random 22 mmol/L (30-90)
[2022-07-01 09:53] LABS: Troponin I < 0.012 ng/mL (0.01-0.034)
[2022-07-01] MEDS: PIPERACILLIN/TAZO 3.375 GM in SODIUM CHLORIDE 0.9% 100 ML IV ×2 (09:54→17:00)
--- NOTE | 2022-07-01 11:12 | PT.IIE ---
Surgical History (Last Reviewed 06/30/22 @ 08:56 by Anabel Montana MD) Status post appendectomy Medical History (Last Reviewed 06/30/22 @ 08:56 by Anabel Montana MD) Alcohol abuse Congestive heart failure Depression Esophageal ulceration Essential hypertension GERD (gastroesophageal reflux disease) Hypothyroidism Mixed hyperlipidemia Venous stasis Physical Therapy Inpatient Evaluation/Re-Eval M1 PT/OT-IP Prior Functional Status Start: 06/30/22 13:29 Freq: NEEDED Status: Active Protocol: Document 07/01/22 11:12 AB (Rec: 07/01/22 13:34 AB [id number]) Medical Review Prior Functional Status Medical History Reviewed Yes Communication able to make needs known but with confusion Mobility and Gait pt stated that he is modified independnet with all mobilities and ambulation without AD indoors but uses his 4WW for outdoor mobility Social History Household Members spouse Living Arrangements Mobile home Number of Floors (Floors) One Floor Number of Stairs To Enter/Railing? ramp to enter Home Environment Standard Height Toilet,Tub/ Shower,Ramp Home Equipment Four Wheel Walker,Shower Seat without Backrest,Hand Held Shower,Grab Bars In Shower Additional Social History Comment pt stated that spouse works and will not be able to assist him son that lives on another trailer on the same property where he is also works and will not be able to assist him pt sleeps on a recliner/zero gravity chair M2 PT-IP Current Condition Start: 06/30/22 13:29 Freq: NEEDED Status: Active Protocol: Document 07/01/22 11:12 AB (Rec: 07/01/22 13:34 [id number]) Physical Therapy Current Condition Current Condition Evaluation Date 07/01/22 Treatment Diagnosis CHF exacerbation; difficulty in walking Onset Date 06/29/22 M3 PT-IP Subjective Start: 06/30/22 13:29 Freq: NEEDED Status: Active Protocol: Document 07/01/22 11:12 AB (Rec: 07/01/22 13:34 AB [id number]) Subjective Physical Therapy Visit Type Type Initial Evaluation Visit Start Time 11:12 Visit Stop Time 11:43 Total Visit Minutes 31 Number of PROGRAM MANAGER SLP Visits 0 Physical Therapy Visit Comments Patient Comments agreed to get out of the bed Therapy Pain Assessment Pain When Pain Assessed During Mobility Pain Present Pain Present Pain Reported Location Bilateral Lower Leg Scale Used pain scale not stated Pain Management Techniques Distraction,Elevation, Modification of Treatment M4 PT-IP Mobility and Gait Start: 06/30/22 13:29 Freq: NEEDED Status: Active Protocol: Document 07/01/22 11:12 AB (Rec: 07/01/22 13:34 [id number]) PT-Bed Mobility Assessment Supine to Sit Supine to Sit Maximum Assistance,2 Person Assistance,Head of Bed Elevated,Bedrails Scooting Scooting to Edge of Bed Dependent PT-Transfer Assessment Sit to and From Stand Sit to and from Stand Maximum Assistance,2 Person Assistance,Use of Upper Extremities Equipment Transfer Assistive Device Front Wheeled Walker Orthotic/Prosthetic Devices or Brace: No Transfers Transfer Destination Chair Transfer Technique Stand Step Pivot Transfer Ability Level of Assist Maximum Assistance,2 Person Assistance,Use of Upper Extremities Comments Mobility Comments completed supine to sit max A x 2 and max cues. HOB elevated and pt used bed rail to assist. able to sit on EOB with initial max A with increase posterior trunk lean. positioned pt on EOB requiring total A x 2 for scooting to EOB. able to sit CGA after repositioning. pt refused to use no-skid socks or put his shoes on before standing up. pt with BLE with edema and h/o chronic wounds and per MD, possible cellulitis. completed sit to stand from EOB max A x 2 and max cues and step transfer to chair using FWW max A x 2 and max cues. positioned pt on the chair. call light and table placed within reach. Left pt with NAC and nurse. Gait Assessment Comments Gait Comments unable at this time PT-Balance Assessment Sitting Balance and Reactions Static Sitting Balance Ability Fair Dynamic Sitting Balance Ability Poor Standing Balance and Reactions Static Standing Balance Ability Poor Dynamic Standing Balance Ability Poor Device Used FWW M5 PT-IP Objective Assessments Start: 06/30/22 13:29 Freq: NEEDED Status: Active Protocol: Document 07/01/22 11:12 AB (Rec: 07/01/22 13:34 AB [id number]) Orientation Orientation/Cognition Level of Alertness Confusional State Orientation Name Language Function Ability Hard of Hearing Safety Awareness Decreased Safety Awareness Comments pt uses an amplifier pt also stated that he has R eye vision loss Strength Lower Extremity Strength Assessment Bilaterally Impaired Comments Strength Comments unable to complete MMT due to BLE c/o pain and tender to touch Muscle Tone Muscle Tone WNL Yes M6 PT-IP Treatment Start: 06/30/22 13:29 Freq: NEEDED Status: Active Protocol: Document 07/01/22 11:12 AB (Rec: 07/01/22 13:34 AB [id number]) Physical Therapy Treatment Education Education Provided Safety M7 PT-IP Assessment and Plan Start: 06/30/22 13:29 Freq: NEEDED Status: Active Protocol: Document 07/01/22 11:12 AB (Rec: 07/01/22 13:34 AB [id number]) PT Summary Assessment and Plan Potential Rehabilitation Potential Fair Status of Condition at Evaluation Unstable Summary Impairments Pain,ROM,Strength,Balance, Coordination,Sensation,Tone, Cognition,Bed Mobility, Transfers,Gait,Activity Tolerance Assessment Summary pt requiring max A x 2 to total A x 2 with mobility and unable to ambulate at this time. pt will require SNF rehab to improve strength and functional mobility. will continue to assess progress. Goals Bed Mobility Goal Moderate Assistance Transfer Goal Moderate Assistance,Front Wheeled Walker Gait Goal Moderate Assistance,Front Wheel Walker Gait Distance 50 Other Goals improve bed mobility, transfers using FWW/4WW SBA, ambulation using FWW/4WW SBA 150ft Days to Meet Goals 10 Frequency of Treatment Frequency Of Treatment Once a Day Treatment Plan Physical Therapy Treatment Plan Bed Mobility Training,Transfer Training,Gait Training, Therapeutic Exercise,Balance Retraining,Discharge Planning, Hot or Cold Pack,Neuromuscular Re-ed,Coordination Retraining Precautions Other Precautions falls Recommendations To Nursing Amount of Assist Needed 2 Person Assist Discharge Recommendations PT Discharge Recommendations SNF Rehab Equipment Needed for Home Before FWW if going home and not safe Discharge with 4WW Transportation Needs at Discharge Wheelchair/Cabulance
[2022-07-01 12:45] LABS: PTT Partial Thromboplastin Tim 34 SECONDS (26-36)
[2022-07-01] MEDS: HEPARIN 5,000 UNIT/ML VIAL 5000 UNIT IV (13:08)
--- NOTE | 2022-07-01 13:53 | CM.DPC ---
DCP/continued: Reviewed chart. Patient remains with A fib with RVR. In addition, has RLE DVT. Anticipate heparin infusion once labs return. Patient evaluated by therapy and current recommendation is SNF. Patient would benefit from OT evaluation when she becomes more medically stable if SNF continues to be the recommendation. Will need OT evaluation for insurance authorization. P: CM team following closely. SLIME
[2022-07-01] MEDS: HEPARIN DRIP 25,000 UNIT/500 ML IV.SOLN 30 UNIT IV (17:11)
[2022-07-01 19:03] LABS: PTT Partial Thromboplastin Tim 54 SECONDS (26-36)
--- NOTE | 2022-07-01 19:49 | P.PN_ITS ---
Subjective Subjective Date Patient Seen: 07/01/22 Time Patient Seen: 19:49 Interval history: Patient had bilateral lower extremity venous Doppler that showed DVT in the right lower extremity. He was started on heparin. Patient continued have diuresis last night. Bumex drip was stopped in the evening due to concern about worsening of acute kidney injury. Patient is feeling better today. Still having significant cough. Still not having a bowel movement. He is still not very mobile or willing to move. He denies chest pain. He denies new complaints. He is tolerating p.o. without difficulty. Twelve point review of systems is otherwise negative other than subjective Exam Vital Signs (past 8 hours): - 07/01/22 12:00 07/01/22 13:00 07/01/22 12:00 Temperature Pulse Rate 106 H 84 Respiratory Rate 18 21 Blood Pressure 111/54 L 98/55 L Pulse Oximetry 95 94 Oxygen Delivery Method Room Air Oxygen Flow Rate 0 0 07/01/22 14:00 07/01/22 17:00 07/01/22 16:00 Temperature 97.9 F Pulse Rate 121 H 113 H Respiratory Rate 18 28 H Blood Pressure 98/53 L 99/60 Pulse Oximetry 96 96 Oxygen Delivery Method Room Air Oxygen Flow Rate 0 0 07/01/22 15:00 07/01/22 16:00 07/01/22 19:00 Temperature Pulse Rate 123 H 118 H 125 H Respiratory Rate 13 23 26 H Blood Pressure 105/54 L 108/64 Pulse Oximetry 95 94 95 Oxygen Delivery Method Oxygen Flow Rate 0 0 07/01/22 19:06 07/01/22 19:06 Temperature Pulse Rate 115 H Respiratory Rate 24 Blood Pressure 94/66 Pulse Oximetry 95 Oxygen Delivery Method Oxygen Flow Rate Oxygen Delivery Method Room Air Oxygen Flow Rate 0 Narrative Exam Narrative: Afebrile, vital signs are stable. Blood pressure still continues to be in the upper 90s low 100s over 60s. His heart rate tends to be in the 1 teens which is overall improved. He stable on room air at 95% he is afebrile. Normal respiratory rate HEENT is unchanged. Chest: Shows clear to auscultation with bibasilar crackles and decreased breath sounds. Scattered rhonchi that clear with cough Cor: Irregularly irregular rhythm with RVR with less ectopy than yesterday Abdomen: Obese, positive bowel sounds, soft, nontender, nondistended Extremities show decreased edema though still 2+. Unchanged wounds Neurologic exam is nonfocal and unchanged Objective Labs Result Diagrams: 07/01/22 05:00 07/01/22 05:00 Labs: Laboratory Results - last 24 hr 06/30/22 06/30/22 06/30/22 19:45 19:45 19:45 WBC 24.0 H RBC 4.21 L Hgb 13.5 Hct 39.9 L MCV 94.7 MCH 32.1 MCHC 33.9 RDW 14.5 Plt Count 118 L Neut % (Auto) 92.5 H Lymph % (Auto) 3.8 L [place] % (Auto) 2.8 L Eos % (Auto) 0.7 L Baso % (Auto) 0.2 Neut # (Auto) 61923 H Lymph # (Auto) 900 L [place] # (Auto) 700 Eos # (Auto) 200 Baso # (Auto) 0 PT 13.9 H INR 1.2 APTT 34 Sodium Potassium Chloride Carbon Dioxide BUN Creatinine Estimated GFR BUN/Creatinine Ratio Glucose Calcium Magnesium Total Bilirubin AST ALT Alkaline Phosphatase Total Creatine Kinase CK-MB (CK-2) CK-MB (CK-2) Rel Index Troponin I NT-Pro-B Natriuret Pep Total Protein Albumin Globulin Albumin/Globulin Ratio Ur Random Sodium 07/01/22 07/01/22 07/01/22 03:10 05:00 05:00 WBC RBC Hgb Hct MCV MCH MCHC RDW Plt Count Neut % (Auto) Lymph % (Auto) [place] % (Auto) Eos % (Auto) Baso % (Auto) Neut # (Auto) Lymph # (Auto) [place] # (Auto) Eos # (Auto) Baso # (Auto) PT INR APTT 55 H D Sodium Potassium Chloride Carbon Dioxide BUN Creatinine Estimated GFR BUN/Creatinine Ratio Glucose Calcium Magnesium 1.8 Total Bilirubin AST ALT Alkaline Phosphatase Total Creatine Kinase CK-MB (CK-2) CK-MB (CK-2) Rel Index Troponin I NT-Pro-B Natriuret Pep 8170 H Total Protein Albumin Globulin Albumin/Globulin Ratio Ur Random Sodium 07/01/22 07/01/22 07/01/22 05:00 05:00 07:30 WBC 24.0 H RBC 3.82 L Hgb 12.2 L Hct 36.0 L MCV 94.4 MCH 31.9 MCHC 33.8 RDW 14.5 Plt Count 133 L Neut % (Auto) 90.0 H Lymph % (Auto) 5.0 L [place] % (Auto) 3.3 Eos % (Auto) 1.5 L Baso % (Auto) 0.2 Neut # (Auto) 02006 H Lymph # (Auto) 1200 [place] # (Auto) 800 Eos # (Auto) 400 Baso # (Auto) 0 PT INR APTT Sodium 125 L Potassium 4.2 Chloride 91 L Carbon Dioxide 23 BUN 41 H Creatinine 1.91 H Estimated GFR 36 L BUN/Creatinine Ratio 21.5 Glucose 108 Calcium 9.3 Magnesium Total Bilirubin 1.7 H AST 217 H ALT 310 H Alkaline Phosphatase 226 H Total Creatine Kinase CK-MB (CK-2) CK-MB (CK-2) Rel Index Troponin I NT-Pro-B Natriuret Pep Total Protein 5.8 L Albumin 2.7 L Globulin 3.1 Albumin/Globulin Ratio 0.9 L Ur Random Sodium 22 L 07/01/22 07/01/22 07/01/22 09:19 12:33 18:45 WBC RBC Hgb Hct MCV MCH MCHC RDW Plt Count Neut % (Auto) Lymph % (Auto) [place] % (Auto) Eos % (Auto) Baso % (Auto) Neut # (Auto) Lymph # (Auto) [place] # (Auto) Eos # (Auto) Baso # (Auto) PT INR APTT 34 D 54 H D Sodium Potassium Chloride Carbon Dioxide BUN Creatinine Estimated GFR BUN/Creatinine Ratio Glucose Calcium Magnesium Total Bilirubin AST ALT Alkaline Phosphatase Total Creatine Kinase 31 L CK-MB (CK-2) TNP CK-MB (CK-2) Rel Index TNP Troponin I < 0.012 NT-Pro-B Natriuret Pep Total Protein Albumin Globulin Albumin/Globulin Ratio Ur Random Sodium [facility] Medical History Alcohol abuse Congestive heart failure Depression Esophageal ulceration Essential hypertension GERD (gastroesophageal reflux disease) Hypothyroidism Mixed hyperlipidemia Venous stasis Surgical History Status post appendectomy Family History (Updated 06/30/22 @ 11:20 by Roma Bennett DO) Other Congestive heart failure Social History household members: spouse Smoking Status: Never smoker alcohol intake: never Assessment & Plan Assessment & Plan narrative: Assessment 1.? AFib with RVR Plan: Suspect secondary to sepsis and fluid overload. Patient with overall improvements but still rapid ventricular rate. Appreciate tele ICU and Cardiology input. Will continue with metoprolol 25 mg twice daily. We will hold the lisinopril for now due to acute kidney injury as well as relative hypotension. Will continue with digit loading. Cardiology was reticent to start amiodarone due to hepatic dysfunction. Will continue with treating infection as well. Echo showed no significant change. CK and troponin are negative. Assessment 2.? Acute on chronic systolic heart failure exacerbation likely re lated to AFib with RVR Plan: Echo.? Treat RVR.? Diurese as were able.? Will restart Bumex drip. Will continue with metoprolol 25 mg twice daily. We will hold the lisinopril due to acute kidney injury and relative hypotension. Reviewed echo which showed no significant change from previous 1 earlier this year. Other than right ventricle enlargement. Will continue holding spironolactone for now. CK and troponin negative. Assessment 3. Hypothyroidism Plan: Thyroid was normal. Will continue to monitor and continue on same dose. Assessment 4. Peripheral edema with chronic wounds with possible cellulitis Plan:? Restart Bumex drip. Wound Care consulted. Will discontinue ceftriaxone and add Zosyn. Patient has GI symptoms with penicillin presumably Augmentin. We will watch closely. Assessment 5.? Acute on chronic kidney disease overall stable despite diuresis Plan:? . Will start Bumex drip. Will continue to hold spironolactone. Will hold lisinopril for now. Assessment 6.? Hyperkalemia improved since admit Plan:? Will continue to monitor potassium and will restart spironolactone once kidney function improves Assessment 7. Hypomagnesemia Plan:? Will replace magnesium and recheck in a.m. Assessment 8. GI prophylaxis Plan:? Will provide pantoprazole Assessment 9. DVT prophylaxis Plan:? Lovenox discontinued due to heparin Assessment 10. Right lower extremity DVT Plan: Will treat with heparin continue with current treatment. Assessment 11. Hyponatremia suspect due to fluid overload Plan: Will continue diuresis Assessment 12. GERD and GI prophylaxis Plan: Continue proton pump inhibitor 45 minute spent with patient today Discussed code status with patient he is a full code Time Spent With Patient Critical Care time: I spent a total of [] minutes of critical care time on this patient's care today; this time is exclusive of procedural time. Quality VTE Deep Vein Thrombosis/Pulmonary Embolism Present on Admission: No
--- NOTE | 2022-07-01 20:15 | P.ICUMDRN_ITS ---
- Date Patient Seen: 07/01/22 Time Patient Seen: 20:15 :: This patient was seen via real time interactive two-way audiovisual telecommunication. Note: Patient is clinically improving slowly. He is currently in A fib w/ HR ~100- 130s. Tolerating metoprolol 25 mg BID. Pending digoxin level. Cont diuresis to seek net negative fluid balance. High lytes goal. D/w RN at bedside.
[2022-07-02] VITALS (27 sets, daily range): BP systolic 105–133; BP diastolic 53–82; PULSE 76–134; RESP 14–28; TEMP 36.1–37; O2SAT 92–99
[2022-07-02] MEDS: PIPERACILLIN/TAZO 3.375 GM in SODIUM CHLORIDE 0.9% 100 ML IV ×3 (00:01→17:11)
[2022-07-02] MEDS: BUMETANIDE DRIP IV ×2 (01:57→21:07)
[2022-07-02] MEDS: SODIUM CHLORIDE 0.9% IV ×2 (01:57→21:07)
[2022-07-02 02:53] LABS: PTT Partial Thromboplastin Tim 56 SECONDS (26-36)
[2022-07-02] MEDS: HEPARIN 5,000 UNIT/ML VIAL 2000 UNIT IV ×2 (03:35→19:52)
[2022-07-02] MEDS: LEVOTHYROXINE 125 MCG TABLET PO (06:02)
[2022-07-02 06:10] LABS: Add Manual Diff / Slide Review NO; Basophils Absolute Auto 0 /uL (0-100); Basophils Percent Auto 0.2 % (0-2); Eosinophils Absolute Auto 300 /uL (0-450); Eosinophils Percent Auto 1.8 % (2-4); Hematocrit 39.7 % (41-53); Hemoglobin 13.4 g/dL (13.5-17.5); Lymphocytes Absolute Auto 1200 /uL (1100-4500); Mean Corpuscular HGB Conc 33.8 % (30-36); Mean Corpuscular Volume 94.7 fL (80-100); Monocytes Absolute Auto 1000 /uL (0-900); Monocytes Percent Auto 5.7 % (3-14); Neutrophils Absolute Auto 14900 /uL (1500-7000); Neutrophils Percent Auto 85.3 % (50-75); Platelet Count 156 X10^3/uL (150-400); Red Blood Cell Count 4.19 X10^6/uL (4.5-5.9); Red Cell Distribution Width 14.5 % (11.6-14.8); White Blood Cell Count 17.5 X10^3/uL (4.5-11.0)
[2022-07-02 06:32] LABS: Alanine Aminotransferase 276 IU/L (<50); Albumin 3.1 g/dL (3.5-5.0); Albumin Globulin Ratio 0.9 (1.0-2.8); Alkaline Phosphatase 265 U/L (38-126); Aspartate Aminotransferase 138 IU/L (17-59); BUN Creatinine Ratio 22.5 (6-22); Bilirubin Total 1.9 mg/dL (0.2-1.3); Blood Urea Nitrogen 36 mg/dL (9-20); Calcium 8.8 mg/dL (8.4-10.2); Carbon Dioxide 27 mmol/L (22-32); Chloride 88 mmol/L (98-107); Estimated Glomerular Filt Rate 44 mL/min (>60); Globulin 3.4 g/dL (1.7-4.1); Glucose 115 mg/dL (80-110); HEMOLYSIS < 15 (0-50); Magnesium 1.8 mg/dL (1.6-2.3); Potassium 3.2 mmol/L (3.4-5.1); Sodium 128 mmol/L (137-145); Total Protein 6.5 g/dL (6.3-8.2)
[2022-07-02 06:34] LABS: Digoxin 0.9 ng/mL (0.8-2.0)
[2022-07-02 06:37] LABS: NT-proBNP (BNP-Adult 18+) 9030 pg/mL (<450)
[2022-07-02] MEDS: METOPROLOL IR 25 MG TABLET PO ×2 (08:39→19:52)
[2022-07-02] MEDS: PANTOPRAZOLE 40 MG VIAL IV (08:39)
[2022-07-02] MEDS: SENNOSIDES 8.6 MG TABLET PO (08:39)
[2022-07-02] MEDS: SODIUM CHLORIDE 0.9% FLUSH 10 ML IV ×2 (08:40→19:51)
--- NOTE | 2022-07-02 08:47 | CM.DPC ---
Addendum entered by DAVIE Monteiro 07/02/22 14:55: ADD: SW called [facility] and left msg inquiring about their review. SW also called [facility] and confirmed they are still contracted with pt's [employer] insurance but due to pt's last booster being in Aug he would need to be quarantined and they may not have a bed but willing to review. SW faxed referral to [facility] as well for back up. BF Original Note: DCP SNF vs HH Per MD, pt not medically stable to d/c yet today and per RN pt having some heart rate issues. Per PT, recommending SNF currently. SW met bedside with pt who is [place] but has hearing device and was sleeping in the recliner and SW woke pt up and discussed SNF recommendation. Pt states he is hopeful to improve by the time he discharges to return home with [facility]. SW discussed back up plan, especially since he would need insurance auth approval which can take some time, and pt was agreeable with referral to [facility] due to it being a [employer] contracted facility as a back up. PASRR completed in anticipation of possible SNF and printed COVID vax status from [facility] showing the one J&J vaccination and one booster in Aug 2021. SELINA faxed [facility] pt's referral to review and ordered OT towards insurance auth need. Plan: SW to follow closely for pt's progress with PT/OT to determine SNF vs [facility] and [facility] review. DAVIE Monteiro
--- NOTE | 2022-07-02 09:22 | PM.PN.EICU ---
Subjective Subjective IF CAMERA ACTIVATED, patient seen via real-time interactive audiovisual communication: Camera activated Consent obtained for tele-it risk advisor care: Yes Patient Location: ICU Provider location (State): Other participants/roles: RN Current Medications Current Medications Medications: Home Medications pantoprazole 40 mg tablet,delayed release 40 mg PO DAILY #30 tabs 03/03/21 [Rx Confirmed 10/26/21] pravastatin 20 mg tablet 40 mg PO BEDTIME #30 tabs 03/03/21 [Rx Confirmed 10/26/21] tamsulosin 0.4 mg capsule (Flomax) 0.8 mg PO DAILY #60 caps 07/28/21 [Rx Confirmed 10/26/21] levothyroxine 125 mcg tablet (Synthroid) 150 mcg PO DAILY@0600 10/26/21 [History Confirmed 10/26/21] digoxin 125 mcg (0.125 mg) tablet 0.25 mg PO DAILY@1700 #90 tabs 11/01/21 [Rx] furosemide 20 mg tablet (Lasix) 10 mg PO BID #60 tabs 11/01/21 [Rx] lisinopril 5 mg tablet 2.5 mg PO DAILY #90 tabs 11/01/21 [Rx] metoprolol succinate 50 mg tablet,extended release 24 hr 50 mg PO DAILY #90 tabs 11/01/21 [Rx] potassium chloride 20 mEq tablet,extended release(part/cryst) (Klor-Con M) 40 meq PO DAILYCC #30 tabs 11/01/21 [Rx] spironolactone 25 mg tablet 25 mg PO DAILY #30 tabs 11/01/21 [Rx] Visit Medications (administered) Generic Name Dose Route Start Last Admin Trade Name Freq PRN Reason Stop Dose Admin Acetaminophen 650 mg 06/30/22 08:25 06/30/22 21:00 Acetaminophen 325 Mg Tablet PO 650 mg Q6HR PRN Administration Fever/Mild Pain (1-3) Heparin Sodium/Dextrose 25,000 unit in 500 mls @ 24 mls/hr 06/30/22 19:15 07/02/22 03:38 Heparin Drip IV 1,700 unit/hr CONT EVARISTO 34 mls/hr Titration Protocol 1,200 UNIT/HR Piperacillin Sod/Tazobactam 100 mls @ 25 mls/hr 07/01/22 09:00 07/02/22 08:39 Sod 3.375 gm/ Sodium Chloride IV 25 mls/hr Q8H EVARISTO Administration Bumetanide 10 mg/ Sodium 100 mls @ 5 mls/hr 07/02/22 01:30 07/02/22 01:57 Chloride IV 5 mls/hr CONT EVARISTO Administration Levothyroxine Sodium 125 mcg 07/01/22 06:00 07/02/22 06:02 Levothyroxine 125 Mcg Tablet PO 125 mcg DAILY@0600 EVARISTO Administration Melatonin 9 mg 06/30/22 23:45 07/01/22 19:58 Melatonin 3 Mg Tablet PO 9 mg BEDTIME EVARISTO Administration Metoprolol Tartrate 25 mg 07/01/22 09:00 07/02/22 08:39 Metoprolol Ir 25 Mg Tablet PO 25 mg BID EVARISTO Administration Pantoprazole Sodium 40 mg 06/30/22 09:00 07/02/22 08:39 Pantoprazole 40 Mg Vial IV 40 mg DAILY EVARISTO Administration Sennosides 8.6 mg 06/30/22 09:15 07/02/22 08:39 Sennosides 8.6 Mg Tablet PO 8.6 mg DAILY EVARISTO Administration Sodium Chloride 10 ml 06/30/22 09:00 07/02/22 08:40 Sodium Chloride 0.9% Flush IV 10 ml BID EVARISTO Administration Objective Labs Result Diagrams: 07/02/22 05:17 07/02/22 05:17 Labs: Laboratory Results - last 24 hr 07/01/22 07/01/22 07/01/22 07:30 09:19 12:33 WBC RBC Hgb Hct MCV MCH MCHC RDW Plt Count Neut % (Auto) Lymph % (Auto) Jackson % (Auto) Eos % (Auto) Baso % (Auto) Neut # (Auto) Lymph # (Auto) Jackson # (Auto) Eos # (Auto) Baso # (Auto) APTT 34 D Sodium Potassium Chloride Carbon Dioxide BUN Creatinine Estimated GFR BUN/Creatinine Ratio Glucose Calcium Magnesium Total Bilirubin AST ALT Alkaline Phosphatase Total Creatine Kinase 31 L CK-MB (CK-2) TNP CK-MB (CK-2) Rel Index TNP Troponin I < 0.012 NT-Pro-B Natriuret Pep Total Protein Albumin Globulin Albumin/Globulin Ratio Ur Random Sodium 22 L Digoxin 07/01/22 07/02/22 07/02/22 18:45 02:05 05:17 WBC 17.5 H RBC 4.19 L Hgb 13.4 L Hct 39.7 L MCV 94.7 MCH 32.0 MCHC 33.8 RDW 14.5 Plt Count 156 Neut % (Auto) 85.3 H Lymph % (Auto) 7.0 L Jackson % (Auto) 5.7 Eos % (Auto) 1.8 L Baso % (Auto) 0.2 Neut # (Auto) 17671 H Lymph # (Auto) 1200 Jackson # (Auto) 1000 H Eos # (Auto) 300 Baso # (Auto) 0 APTT 54 H D 56 H Sodium Potassium Chloride Carbon Dioxide BUN Creatinine Estimated GFR BUN/Creatinine Ratio Glucose Calcium Magnesium Total Bilirubin AST ALT Alkaline Phosphatase Total Creatine Kinase CK-MB (CK-2) CK-MB (CK-2) Rel Index Troponin I NT-Pro-B Natriuret Pep Total Protein Albumin Globulin Albumin/Globulin Ratio Ur Random Sodium Digoxin 07/02/22 07/02/22 05:17 05:17 WBC RBC Hgb Hct MCV MCH MCHC RDW Plt Count Neut % (Auto) Lymph % (Auto) Jackson % (Auto) Eos % (Auto) Baso % (Auto) Neut # (Auto) Lymph # (Auto) Jackson # (Auto) Eos # (Auto) Baso # (Auto) APTT Sodium 128 L Potassium 3.2 L Chloride 88 L Carbon Dioxide 27 BUN 36 H Creatinine 1.60 H Estimated GFR 44 L BUN/Creatinine Ratio 22.5 H Glucose 115 H Calcium 8.8 Magnesium 1.8 Total Bilirubin 1.9 H AST 138 H ALT 276 H Alkaline Phosphatase 265 H Total Creatine Kinase CK-MB (CK-2) CK-MB (CK-2) Rel Index Troponin I NT-Pro-B Natriuret Pep 9030 H Total Protein 6.5 Albumin 3.1 L Globulin 3.4 Albumin/Globulin Ratio 0.9 L Ur Random Sodium Digoxin 0.9 Exam Vital Signs (past 8 hours): - 07/02/22 02:00 07/02/22 02:00 07/02/22 03:00 Temperature Pulse Rate 117 H Respiratory Rate 17 Blood Pressure 107/63 106/73 Pulse Oximetry 92 Oxygen Delivery Method Oxygen Flow Rate 07/02/22 03:00 07/02/22 04:00 07/02/22 04:00 Temperature Pulse Rate 116 H Respiratory Rate 23 Blood Pressure 105/68 Pulse Oximetry 94 Oxygen Delivery Method Room Air Oxygen Flow Rate 07/02/22 04:00 07/02/22 05:00 07/02/22 05:00 Temperature Pulse Rate 116 H 122 H Respiratory Rate 23 Blood Pressure 111/69 Pulse Oximetry 93 94 Oxygen Delivery Method Oxygen Flow Rate 07/02/22 06:00 07/02/22 06:10 07/02/22 06:11 Temperature Pulse Rate 117 H 108 H Respiratory Rate Blood Pressure 115/69 Pulse Oximetry 96 96 Oxygen Delivery Method Oxygen Flow Rate 07/02/22 06:11 07/02/22 04:00 07/02/22 07:00 Temperature 98.6 F Pulse Rate 115 H 93 H Respiratory Rate 18 Blood Pressure 108/61 Pulse Oximetry 96 96 Oxygen Delivery Method Oxygen Flow Rate 0 07/02/22 08:00 07/02/22 08:00 Temperature 98.1 F Pulse Rate 118 H Respiratory Rate 26 H Blood Pressure 115/58 L Pulse Oximetry 95 Oxygen Delivery Method Room Air Oxygen Flow Rate 0 Oxygen Delivery Method Room Air Oxygen Flow Rate 0 Quality TeleICU VTE Deep Vein Thrombosis/Pulmonary Embolism Present on Admission: No Assessment & Plan Assessment & Plan narrative: NEURO: -- Needs PT/OT and OOB as tolerated RESP: -- ON room air -- CXR showed bilateral cephalization which has slightly improved from prior CXR -- Cont gentle diuresis to seek net negative fluid balance -- Goal SpO2 > 90% CVS: # A fib w/ RVR -- Possible related to sepsis, PE, and volume overload -- Recommend continuing gentle diuresis to seek net negative fluid balance - BMP Q8H, replace K& Mag as needed for goal of 4 & 2 -- Cont metoprolol IR 25 mg BID -- Recommend to continue to hold lisinopril given soft BP requiring metoprolol to be held -- Cont digoxin lper cardiology, watch level closely in the sitting of GLENROY -- High lytes goal (MG >2 and K >4) -- CHADVASC score 4 -> on heparin infusion # Hx of HfrEF -- Agree with diuresis -- Cardiology following -- EF dropped to 35%, will need ischemia work up after resolution of Afib w RVR and GLENROY HEME: # RLE DVT -- On heparin infusion -- Encourage early mobility : # GLENROY -- Secondary to renal venous congestion -- Agree with diuresis -- Avoid nephrotoxin agents -- Recommend holding lisinopril due to GLENROY -- Monitor UOP -- Daily BMP # Hyponatremia -- Secondary to hypervolemia -- Improving w/ diuresis -- Pending TSH GI: # Abnormal LFTs -- Secondary to hepatic congestion -- Agree w/ diuresis -- Trend daily LFTs ENDO: -- GOal BS < 180 Time Spent With Patient Critical Care time: I spent a total of [30] minutes of critical care time on this patient's care today; this time is exclusive of procedural time.
--- NOTE | 2022-07-02 09:38 | PM.PN.1 ---
Subjective Subjective Date Patient Seen: 07/02/22 Time Patient Seen: 09:38 Interval history: Patient with an uneventful night. Patient's cough is improving. His urine culture came back showing E coli bacteria. He is still reluctant to move. He continues to have good diuresis. He denies any chest pain, palpitations, lightheadedness or dizziness. He is tolerating p.o. without difficulty No bowel movement yet 12 point review of systems is otherwise unremarkable Exam Vital Signs (past 8 hours): - 07/02/22 02:00 07/02/22 02:00 07/02/22 03:00 Temperature Pulse Rate 117 H Respiratory Rate 17 Blood Pressure 107/63 106/73 Pulse Oximetry 92 Oxygen Delivery Method Oxygen Flow Rate 07/02/22 03:00 07/02/22 04:00 07/02/22 04:00 Temperature Pulse Rate 116 H Respiratory Rate 23 Blood Pressure 105/68 Pulse Oximetry 94 Oxygen Delivery Method Room Air Oxygen Flow Rate 07/02/22 04:00 07/02/22 05:00 07/02/22 05:00 Temperature Pulse Rate 116 H 122 H Respiratory Rate 23 Blood Pressure 111/69 Pulse Oximetry 93 94 Oxygen Delivery Method Oxygen Flow Rate 07/02/22 06:00 07/02/22 06:10 07/02/22 06:11 Temperature Pulse Rate 117 H 108 H Respiratory Rate Blood Pressure 115/69 Pulse Oximetry 96 96 Oxygen Delivery Method Oxygen Flow Rate 07/02/22 06:11 07/02/22 04:00 07/02/22 07:00 Temperature 98.6 F Pulse Rate 115 H 93 H Respiratory Rate 18 Blood Pressure 108/61 Pulse Oximetry 96 96 Oxygen Delivery Method Oxygen Flow Rate 0 07/02/22 08:00 07/02/22 08:00 07/02/22 09:00 Temperature 98.1 F Pulse Rate 118 H 113 H Respiratory Rate 26 H 18 Blood Pressure 115/58 L 114/82 Pulse Oximetry 95 95 Oxygen Delivery Method Room Air Oxygen Flow Rate 0 0 Oxygen Delivery Method Room Air Oxygen Flow Rate 0 Narrative Exam Narrative: Patient is very hard of hearing but is alert and oriented Neck is supple without adenopathy Chest: No wheezes or rhonchi but decreased breath sounds in the bases Cor: Irregularly irregular rhythm but more regular ectopy with PVC every 4th beat. Distant S1-S2 Abdomen: Positive bowel sounds, soft, obese Extremities: Decreased pitting edema. Wounds unchanged. Still with large blister that has not erupted on the right lower extremity Objective Labs Result Diagrams: 07/02/22 05:17 07/02/22 05:17 Labs: Laboratory Results - last 24 hr 07/01/22 07/01/22 07/01/22 07:30 09:19 12:33 WBC RBC Hgb Hct MCV MCH MCHC RDW Plt Count Neut % (Auto) Lymph % (Auto) Grady % (Auto) Eos % (Auto) Baso % (Auto) Neut # (Auto) Lymph # (Auto) Grady # (Auto) Eos # (Auto) Baso # (Auto) APTT 34 D Sodium Potassium Chloride Carbon Dioxide BUN Creatinine Estimated GFR BUN/Creatinine Ratio Glucose Calcium Magnesium Total Bilirubin AST ALT Alkaline Phosphatase Total Creatine Kinase 31 L CK-MB (CK-2) TNP CK-MB (CK-2) Rel Index TNP Troponin I < 0.012 NT-Pro-B Natriuret Pep Total Protein Albumin Globulin Albumin/Globulin Ratio Ur Random Sodium 22 L Digoxin 07/01/22 07/02/22 07/02/22 18:45 02:05 05:17 WBC 17.5 H RBC 4.19 L Hgb 13.4 L Hct 39.7 L MCV 94.7 MCH 32.0 MCHC 33.8 RDW 14.5 Plt Count 156 Neut % (Auto) 85.3 H Lymph % (Auto) 7.0 L Grady % (Auto) 5.7 Eos % (Auto) 1.8 L Baso % (Auto) 0.2 Neut # (Auto) 51594 H Lymph # (Auto) 1200 Grady # (Auto) 1000 H Eos # (Auto) 300 Baso # (Auto) 0 APTT 54 H D 56 H Sodium Potassium Chloride Carbon Dioxide BUN Creatinine Estimated GFR BUN/Creatinine Ratio Glucose Calcium Magnesium Total Bilirubin AST ALT Alkaline Phosphatase Total Creatine Kinase CK-MB (CK-2) CK-MB (CK-2) Rel Index Troponin I NT-Pro-B Natriuret Pep Total Protein Albumin Globulin Albumin/Globulin Ratio Ur Random Sodium Digoxin 07/02/22 07/02/22 05:17 05:17 WBC RBC Hgb Hct MCV MCH MCHC RDW Plt Count Neut % (Auto) Lymph % (Auto) Grady % (Auto) Eos % (Auto) Baso % (Auto) Neut # (Auto) Lymph # (Auto) Grady # (Auto) Eos # (Auto) Baso # (Auto) APTT Sodium 128 L Potassium 3.2 L Chloride 88 L Carbon Dioxide 27 BUN 36 H Creatinine 1.60 H Estimated GFR 44 L BUN/Creatinine Ratio 22.5 H Glucose 115 H Calcium 8.8 Magnesium 1.8 Total Bilirubin 1.9 H AST 138 H ALT 276 H Alkaline Phosphatase 265 H Total Creatine Kinase CK-MB (CK-2) CK-MB (CK-2) Rel Index Troponin I NT-Pro-B Natriuret Pep 9030 H Total Protein 6.5 Albumin 3.1 L Globulin 3.4 Albumin/Globulin Ratio 0.9 L Ur Random Sodium Digoxin 0.9 PFSH Medical History Alcohol abuse Congestive heart failure Depression Esophageal ulceration Essential hypertension GERD (gastroesophageal reflux disease) Hypothyroidism Mixed hyperlipidemia Venous stasis Surgical History Status post appendectomy Family History (Updated 06/30/22 @ 11:20 by Roma Bennett DO) Other Congestive heart failure Social History household members: spouse Smoking Status: Never smoker alcohol intake: never Assessment & Plan Assessment & Plan narrative: Assessment 1.? AFib with RVR Plan:? Suspect secondary to sepsis and fluid overload.? Patient with overall improvements but still rapid ventricular rate.? Appreciate tele ICU and Cardiology input.? Will continue with metoprolol 25 mg twice daily.? We will hold the lisinopril for now due to acute kidney injury as well as relative hypotension.? Will continue with digit loading.? Cardiology was reticent to start amiodarone due to hepatic dysfunction.? Will continue with treating infection as well.? Echo showed no significant change.? CK and troponin are negative.? Assessment 2.? Acute on chronic systolic heart failure exacerbation likely related to AFib with RVR Plan: ? Treat RVR.? Diurese as were able.? Will restart Bumex drip.? Will continue with metoprolol 25 mg twice daily.? We will hold the lisinopril due to acute kidney injury and relative hypotension.? Reviewed echo which showed no significant change from previous 1 earlier this year.? Other than right ventricle enlargement.? Will continue holding spironolactone for now.? CK and troponin negative. Assessment 3. Hypothyroidism Plan:? Thyroid was normal.? Will continue to monitor and continue on same dose. Assessment 4. Peripheral edema with chronic wounds with possible cellulitis Plan:? Restart Bumex drip.? Wound Care consulted.? Ceftriaxone discontinued yesterday. Will continue with Zosyn.? Patient has GI symptoms with penicillin presumably Augmentin.? We will watch closely. Assessment 5.? Acute on chronic kidney disease overall stable despite diuresis, overall improving Plan:? .? Will continue t Bumex drip.? Will continue to hold spironolactone.? Will hold lisinopril for now. Assessment 6.? Hyperkalemia improved since admit, now with hypokalemia Plan:? Will replace. Will continue to monitor potassium and will restart spironolactone Assessment 7. Hypomagnesemia Plan:? Will replace magnesium and recheck in a.m. Assessment 8. GI prophylaxis Plan:? Will provide pantoprazole Assessment 9. DVT prophylaxis Plan:? Lovenox discontinued due to heparin Assessment 10. Right lower extremity DVT Plan: Will treat with heparin continue with current treatment. Assessment 11. Hyponatremia suspect due to fluid overload, slowly improving Plan: Will continue diuresis Assessment 12. GERD and GI prophylaxis Plan: Continue proton pump inhibitor Assessment 13. UTI ecoli, sensitive Plan: Continue on same Zosyn for now Assessment 14. Possible pneumonia. Changed from ceftriaxone to Zosyn yesterday and white count is coming down cough is improved. X-ray was unrevealing. Will continue with Zosyn for now. Recheck labs tomorrow. Assessment 15. Hepatic dysfunction suspected secondary to hepatic congestion from congestive heart failure Plan: Continue to monitor Disposition. Patient will require skilled care facility on discharge, anticipate several more days of inpatient hospitalization due to persistent AFib with RVR and infection and congestive heart failure 35 minute spent with patient today Discussed code status with patient he is a full code Time Spent With Patient Critical Care time: I spent a total of [] minutes of critical care time on this patient's care today; this time is exclusive of procedural time. Quality VTE Deep Vein Thrombosis/Pulmonary Embolism Present on Admission: No
[2022-07-02] MEDS: POTASSIUM CHLORIDE 20 MEQ TAB PO (09:58)
[2022-07-02] MEDS: MAGNESIUM SULFATE 2 GM/50 ML PIGGYBACK IV (09:58)
[2022-07-02] MEDS: DIGOXIN 0.125 MG TABLET PO (09:58)
[2022-07-02] MEDS: POTASSIUM CHLORIDE IN WATER 10 MEQ/100 ML PIGGYBACK 100 MEQ IV (10:05)
--- NOTE | 2022-07-02 10:07 | OT.IP.EVAL ---
Past Medical History (Last Reviewed 06/30/22 @ 08:56 by Anabel Montana MD) Alcohol abuse Congestive heart failure Depression Esophageal ulceration Essential hypertension GERD (gastroesophageal reflux disease) Hypothyroidism Mixed hyperlipidemia Venous stasis Surgical History (Last Reviewed 06/30/22 @ 08:56 by Anabel Montana MD) Status post appendectomy Occupational Therapy Inpatient Evaluation/Re-Eval M1 PT/OT-IP Prior Functional Status Start: 06/30/22 13:29 Freq: NEEDED Status: Active Protocol: Document 07/02/22 09: [facility] (Rec: 07/02/22 10:29 [facility] [id number]) Medical Review Prior Functional Status Medical History Reviewed Yes Communication able to make needs known but with confusion Mobility and Gait pt stated that he is modified independent with all mobilities and ambulation without AD indoors but uses his 4WW for outdoor mobility Activities of Daily Living and IADL's Pt states in the past two weeks has gotten weak and needing assist for ADL's and mobility. Prior pt mainly just sits in his recliner and gets up 2 times during the day. Social History Household Members spouse Living Arrangements Mobile home Number of Floors (Floors) One Floor Number of Stairs To Enter/Railing? ramp to enter Home Environment Standard Height Toilet,Tub/ Shower,Ramp Home Equipment Four Wheel Walker,Shower Seat without Backrest,Hand Held Shower,Grab Bars In Shower Additional Social History Comment pt stated that spouse works and will not be able to assist him son that lives on another trailer on the same property where he is also works and will not be able to assist him pt sleeps on a recliner/zero gravity chair M2 OT-IP Current Condition Start: 07/02/22 10:09 Freq: Status: Active Protocol: Document 07/02/22 09:22 [facility] (Rec: 07/02/22 10:29 [facility] [id number]) Occupational Therapy Current Condition Current Condition Evaluation Date 07/02/22 Treatment Diagnosis CHF exacerbation Diagnosis Onset Date 06/29/22 M3 OT- IP Subjective and Pain Start: 07/02/22 10:09 Freq: Status: Active Protocol: Document 07/02/22 09:22 [facility] (Rec: 07/02/22 10:29 [facility] [id number]) OT- Subjective Occupational Therapy Visit Type Type Initial Evaluation Visit Start Time :22 Visit Stop Time 10:07 Total Visit Minutes 45 Occupational Therapy Visit Comments Patient Comments Pt wanting to eat cheese and toast and agreed to stand up. Patient/Caregiver Goals TO get better. OT Pain Assessment Pain When Pain Assessed During Mobility Pain Present Pain Present Pain Reported Location Bilateral Lower Leg Pain Behaviors Calling Out,Facial Grimacing, Wincing M4 OT- IP ADL's Start: 07/02/22 10:09 Freq: Status: Active Protocol: Document 07/02/22 09:22 [facility] (Rec: 07/02/22 10:29 [facility] [id number]) OT [id number] Comments OT Self-Feeding Comments NOt at meal time, pt able to drink from the water bottle. Pt immediately coughed after drinking fluids but feels that it is due to all the phlegm in his mouth. Pt requesting cheese and toast and nursing aid aware. OT ADL-Grooming General Evaluation Grooming Ability Moderate Assistance Comments OT Grooming Comments Assist for completeness to wash his forehead as tubing/ lines limiting his reach. OT ADL-Oral Care General Eval Oral Care Ability Standby Assistance Areas of Assistance Retrieving/Set-Up of Items Comments Oral Care Comments Set-up assist for swab to help get the phlegm out of his mouth. OT ADL-Dressing General Eval Lower Body Dressing Ability Maximum Assistance Comments OT Dressing Comments Assist to help slip on his shoes. OT ADL-Toileting General Evaluation Toileting Ability Total Assistance Areas Needing Assistance Empty Catheter or Colostomy Comments OT Toileting Comments Pt states at home just urinates into a carton and not having to get up to use the toilet. OT ADL-Bathing Comments OT Bathing Comments NOt performed. Pt states two weeks ago able to step over tub with grab bar to shower while seated on a shower chair . M5 OT- IP IADL's Start: 07/02/22 10:09 Freq: Status: Active Protocol: Document 07/02/22 09:22 [facility] (Rec: 07/02/22 10:29 [facility] [id number]) OT-Instrumental Activities of Daily Living Deficits IADL Deficits Identified Deficits Home Safety Awareness Awareness of Need for Assistance at Home Good Awareness Ability to Problem Solve Emergency Able to Problem Solve Situations Medication Management Medication Management Caregiver Administers Money Management Money Management Caregiver Provides Assistance Meal Preparation Meal Preparation Caregiver Provides Assist Floor Layer Tile Floor Layer Tile Caregiver Provides Assist Driving Driving Caregiver Provides Assist M6 OT- IP Functional Cognition Start: 07/02/22 10:09 Freq: Status: Active Protocol: Document 07/02/22 09:22 [facility] (Rec: 07/02/22 10:29 [facility] [id number]) Cognitive Factors Limiting Selfcare Function Cognitive Ability Level of Alertness Alert Patient Orientation Name,Place,Situation Attention Span Ability Capable of Focused Attention, Capable of Sustained Attention Ability to Follow Commands Able to Follow One Step Commands with Increased Time, Able to Follow One Step Commands with Repetition Cognitive Comments Cognitive Assessment Comments Pt very hard of hearing and at times having difficulty to understand directions. Pt grossly able to answer all home safety questions. Pt does not have a working cell phone and therefore unable to call for assistance if needed when at home. OT- Vision and Hearing OT- Vision Assessment Visual Acuity Glasses All The Time Vision Assessment Comments Pt uses an amplifier for his hearing. 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 M7 OT- IP Mobility and Balance Start: 07/02/22 10:09 Freq: Status: Active Protocol: Document 07/02/22 09:22 [facility] (Rec: 07/02/22 10:29 [facility] [id number]) OT-Transfer Assessment Sit to and From Stand Sit to and from Stand Moderate Assistance,2 Person Assistance Technique Transfer Destination Chair Devices Transfer Assistive Devices Gait Belt,Front Wheeled Walker Comments Mobility Comments Pt mainly resides in his recliner at home and only get up minimally. Pt needing MODA X 2 to stand to FWW and able to take small steps forwards and back with MODA X 2. OT- Balance Assessment Sitting Balance and Reactions Static Sitting Balance Ability Fair Dynamic Sitting Balance Ability Poor Standing Balance and Reactions Static Standing Balance Ability Poor Dynamic Standing Balance Ability Poor M8 OT- IP Objective Assessments Start: 07/02/22 10:09 Freq: Status: Active Protocol: Document 07/02/22 09:22 [facility] (Rec: 07/02/22 10:29 [facility] [id number]) OT Gross Range of Motion Upper Extremity Range of Motion ROM Impairments grossly WFL OT Strength Comments Strength Comments Pt from 4-/5 to 4/5 from proximal to distal. OT- Coordination Assessment Upper Extremity Finger to Nose Test Within Functional Limits OT-Muscle Tone Assessment Muscle Tone WNL Yes OT Sensation Assessment Comments Summary Comments Pt states BUE feels the same on both sides during light touch. M9 OT- IP Assessment and Plan Start: 07/02/22 10:09 Freq: Status: Active Protocol: Document 07/02/22 09:22 [facility] (Rec: 07/02/22 10:29 [facility] [id number]) OT Summary Assessment and Plan Potential Rehabilitation Potential Good Analytic Complexity at Evaluation Moderate Summary OT Impairments Pain,Balance,Functional Mobility,Grooming,Dressing, Toileting,Bathing,Toilet Transfers,Shower Transfers, Activity Tolerance Progress Towards Goals Slow Progress due to Medical Issues,Slow Progress due to Activity Tolerance Assessment Summary Pt MOD complexity and main barriers are weakness, decreased balance and mobility . Pt now needing two person assist for mobility needs and far from his baseline of [place] at home for basic ADL's and mobility in his mobile home. Pt would greatly benefit from skilled rehab. Goals Self-Feeding Goal Independent Grooming Goal Independent Dressing Goal Independent Toileting Goal Independent Bathing Goal Standby Assistance Toilet Transfer Goal Independent Shower Transfer Goal Standby Assistance Days to Meet Goals 20 Frequency of Treatment Frequency Of Treatment Once a Day Treatment Plan OT Treatment Plan ADL Training,Functional Cognition Training,Functional Mobility,Patient/Family Education,Discharge Planning Other Treatment Recommendations and Next Transfer to [facility] [place] MAX AX 1. Treatment Focus Discharge Recommendations OT Discharge Recommendations SNF Rehab Transportation Needs at Discharge Wheelchair/Cabulance
[2022-07-02 11:08] LABS: PTT Partial Thromboplastin Tim 32 SECONDS (26-36)
--- NOTE | 2022-07-02 11:15 | PT.IPTN ---
Physical Therapy Treatment Note M2 PT-IP Current Condition Start: 06/30/22 13:29 Freq: NEEDED Status: Active Protocol: Document 07/01/22 11:12 AB (Rec: 07/01/22 13:34 AB [id number]) Physical Therapy Current Condition Current Condition Evaluation Date 07/01/22 Treatment Diagnosis CHF exacerbation; difficulty in walking Onset Date 06/29/22 M3 PT-IP Subjective Start: 06/30/22 13:29 Freq: NEEDED Status: Active Protocol: Document 07/02/22 11:15 AB (Rec: 07/02/22 12:28 AB [id number]) Subjective Physical Therapy Visit Type Type Treatment Note Visit Start Time 11:15 Visit Stop Time 11:36 Total Visit Minutes 21 Number of REGULAR SENIOR CARE PROVIDER Visits 0 Therapy Pain Assessment Pain When Pain Assessed During Mobility Location Bilateral Lower Leg Scale Used pain scale not stated M4 PT-IP Mobility and Gait Start: 06/30/22 13:29 Freq: NEEDED Status: Active Protocol: Document 07/02/22 11:15 AB (Rec: 07/02/22 12:28 AB [id number]) PT-Transfer Assessment Sit to and From Stand Sit to and from Stand Maximum Assistance,2 Person Assistance,Use of Upper Extremities Equipment Transfer Assistive Device Gait Belt,Front Wheeled Walker Orthotic/Prosthetic Devices or Brace: No Comments Mobility Comments completed sit to stand max A x 2 and max cues. ambulated in room using FWW ~ 20 ft mod to max A and max cues. presents with waddling gait with decrease LE elevation/ clearance with decrease step lenght. nurse and NAC in room to assist. pt sat back on chair and positioned. call light and table placed within reach. pt had his slippers on prior to PT session. pt requested to have slippers off after PT session. (+) B LE redness and edema with (+) weeping. Nurse aware and stated that he had blister on LE and is aware that it ruptured. positioned BLE elevated on recliner chair . Left pt with nurse and NAC. Gait Assessment Gait Gait Assistance Required: Moderate Assistance,Maximum Assistance,1 Person Assist Distance (Feet) 20 Able to Maintain Weight Bearing Status No During Gait Assistive Devices Assistive Device Gait Belt,Front Wheeled Walker Orthotic/Prosthetic Devices or Brace: No Gait Deviations General Gait Pattern Decreased Stride Length, Decreased Feet Clearance,Step- to Gait Factors Limiting Gait Function Factors Limiting Gait Function Decreased Activity Tolerance, Decreased Sensation,Decreased Strength,Difficulty Following Directions,Limited Range of Motion,Pain,Poor Balance,Poor Safety Awareness M5 PT-IP Objective Assessments Start: 06/30/22 13:29 Freq: NEEDED Status: Active Protocol: Document 07/01/22 11:12 AB (Rec: 07/01/22 13:34 AB [id number]) Orientation Orientation/Cognition Level of Alertness Confusional State Orientation Name Language Function Ability Hard of Hearing Safety Awareness Decreased Safety Awareness Comments pt uses an amplifier pt also stated that he has R eye vision loss Strength Lower Extremity Strength Assessment Bilaterally Impaired Comments Strength Comments unable to complete MMT due to BLE c/o pain and tender to touch Muscle Tone Muscle Tone WNL Yes M6 PT-IP Treatment Start: 06/30/22 13:29 Freq: NEEDED Status: Active Protocol: Document 07/02/22 11:15 AB (Rec: 07/02/22 12:28 AB [id number]) Physical Therapy Treatment Education Education Provided Safety M7 PT-IP Assessment and Plan Start: 06/30/22 13:29 Freq: NEEDED Status: Active Protocol: Document 07/02/22 11:15 AB (Rec: 07/02/22 12:28 AB [id number]) PT Summary Assessment and Plan Potential Rehabilitation Potential Fair Summary Impairments Pain,ROM,Strength,Balance, Coordination,Sensation,Tone, Cognition,Bed Mobility, Transfers,Gait,Activity Tolerance Progress Towards Goals Slow Progress due to Medical Issues,Slow Progress due to Activity Tolerance Assessment Summary pt requiring max A x 2 for sit to stand but able to ambulate mod to max A using FWW but only tolerate 20 ft. will continue to assess progress but at this time, pt will require SNF rehab. Goals Bed Mobility Goal Moderate Assistance Transfer Goal Moderate Assistance,Front Wheeled Walker Gait Goal Moderate Assistance,Front Wheel Walker Gait Distance 50 Other Goals improve bed mobility, transfers using FWW/4WW SBA, ambulation using FWW/4WW SBA 150ft Days to Meet Goals 10 Frequency of Treatment Frequency Of Treatment Once a Day Treatment Plan Physical Therapy Treatment Plan Bed Mobility Training,Transfer Training,Gait Training, Therapeutic Exercise,Balance Retraining,Discharge Planning, Hot or Cold Pack,Neuromuscular Re-ed,Coordination Retraining Precautions Other Precautions falls Recommendations To Nursing Amount of Assist Needed 2 Person Assist Discharge Recommendations PT Discharge Recommendations SNF Rehab Equipment Needed for Home Before FWW if going home and not safe Discharge with 4WW Transportation Needs at Discharge Wheelchair/Cabulance
[2022-07-02] MEDS: HEPARIN 5,000 UNIT/ML VIAL 5000 UNIT IV (11:25)
[2022-07-02] MEDS: HEPARIN DRIP 25,000 UNIT/500 ML IV.SOLN 34 UNIT IV (11:26)
[2022-07-02 14:16] LABS: Osmolality, Serum 271 mOsmol/kg (280-301)
[2022-07-02 14:16] LABS: Osmolality Urine 410 mOsmol/kg (.)
[2022-07-02 14:31] LABS: BUN Creatinine Ratio 23.1 (6-22); Blood Urea Nitrogen 31 mg/dL (9-20); Calcium 7.6 mg/dL (8.4-10.2); Carbon Dioxide 25 mmol/L (22-32); Chloride 91 mmol/L (98-107); Estimated Glomerular Filt Rate 55 mL/min (>60); Glucose 154 mg/dL (80-110); HEMOLYSIS < 15 (0-50); Potassium 7.8 mmol/L (3.4-5.1)
[2022-07-02 14:33] LABS: Sodium 124 mmol/L (137-145)
[2022-07-02 15:55] LABS: HEMOLYSIS 21 (0-50); Potassium 3.3 mmol/L (3.4-5.1)
[2022-07-02] MEDS: POTASSIUM CHLORIDE 20 MEQ TAB 40 MEQ PO (17:12)
[2022-07-02 19:02] LABS: PTT Partial Thromboplastin Tim 62 SECONDS (26-36)
[2022-07-02] MEDS: ACETAMINOPHEN 325 MG TABLET 650 MG PO (19:51)
[2022-07-02] MEDS: MELATONIN 3 MG TABLET 9 MG PO (19:52)
--- NOTE | 2022-07-02 20:40 | PM.ICURNDS ---
- :: This patient was seen via real time interactive two-way audiovisual telecommunication. Note: patient with good output and negative balanbce., pending repet BMP and ptt. remians on hep gtt and in aflutter with HR in 90s. remians on lopressor and digoxin. conitnue mimix
[2022-07-03] VITALS (21 sets, daily range): BP systolic 88–126; BP diastolic 52–73; PULSE 83–120; RESP 18–28; TEMP 36–36.4; O2SAT 93–99
[2022-07-03] MEDS: PIPERACILLIN/TAZO 3.375 GM in SODIUM CHLORIDE 0.9% 100 ML IV ×3 (00:53→16:09)
[2022-07-03 01:05] LABS: BUN Creatinine Ratio 28.9 (6-22); Blood Urea Nitrogen 41 mg/dL (9-20); Calcium 8.7 mg/dL (8.4-10.2); Carbon Dioxide 29 mmol/L (22-32); Chloride 89 mmol/L (98-107); Estimated Glomerular Filt Rate 51 mL/min (>60); Glucose 126 mg/dL (80-110); HEMOLYSIS 36 (0-50); PTT Partial Thromboplastin Tim 75 SECONDS (26-36); Potassium 3.3 mmol/L (3.4-5.1); Sodium 130 mmol/L (137-145)
[2022-07-03] MEDS: HEPARIN DRIP 25,000 UNIT/500 ML IV.SOLN 40 UNIT IV (03:39)
[2022-07-03 06:03] LABS: Add Manual Diff / Slide Review NO; Basophils Absolute Auto 100 /uL (0-100); Basophils Percent Auto 0.5 % (0-2); Eosinophils Absolute Auto 300 /uL (0-450); Eosinophils Percent Auto 2.1 % (2-4); Hemoglobin 12.9 g/dL (13.5-17.5); Lymphocytes Absolute Auto 1400 /uL (1100-4500); Lymphocytes Percent Auto 10.5 % (25-40); Mean Corpuscular Hemoglobin 32.2 PG (26-34); Mean Corpuscular Volume 94.5 fL (80-100); Monocytes Absolute Auto 1100 /uL (0-900); Monocytes Percent Auto 8.3 % (3-14); Neutrophils Absolute Auto 10200 /uL (1500-7000); Neutrophils Percent Auto 78.6 % (50-75); Platelet Count 166 X10^3/uL (150-400); Red Blood Cell Count 4.02 X10^6/uL (4.5-5.9); Red Cell Distribution Width 14.4 % (11.6-14.8)
[2022-07-03 06:10] LABS: Alanine Aminotransferase 212 IU/L (<50); Albumin 3.1 g/dL (3.5-5.0); Albumin Globulin Ratio 0.9 (1.0-2.8); Alkaline Phosphatase 238 U/L (38-126); Aspartate Aminotransferase 98 IU/L (17-59); BUN Creatinine Ratio 28.3 (6-22); Blood Urea Nitrogen 39 mg/dL (9-20); Calcium 8.5 mg/dL (8.4-10.2); Carbon Dioxide 29 mmol/L (22-32); Chloride 88 mmol/L (98-107); Estimated Glomerular Filt Rate 53 mL/min (>60); Globulin 3.6 g/dL (1.7-4.1); Glucose 137 mg/dL (80-110); HEMOLYSIS < 15 (0-50); Potassium 2.9 mmol/L (3.4-5.1); Sodium 130 mmol/L (137-145); Total Protein 6.7 g/dL (6.3-8.2)
[2022-07-03] MEDS: LEVOTHYROXINE 125 MCG TABLET PO (06:12)
[2022-07-03 06:20] LABS: Magnesium 1.8 mg/dL (1.6-2.3)
[2022-07-03 06:22] LABS: PTT Partial Thromboplastin Tim 150 SECONDS (26-36)
--- NOTE | 2022-07-03 06:46 | PC.NURSE ---
Associate Sales Representative Note-Patient slept in recliner, refuses to sleep in bed, sitting on his own butt pillow, legs elevated on pillows, observed moving arms and feet, and shifting torso, needs assist to lift legs. Heparin infusing per non-cardiac protocol, see flow sheet and Emar. Bumex infusing at 5ml/hr, total UOP in Page 2450ml for night. A-fib/flutter CVR, BP stable, see vital trends, receiving PO metoprolol and digoxin. K+ 2.[address] Padron this am, no new orders received at this time, patient will receive PO potassium as scheduled at 0800 with breakfast.
[2022-07-03] MEDS: POTASSIUM CHLORIDE 20 MEQ TAB 40 MEQ PO (08:02)
[2022-07-03] MEDS: PANTOPRAZOLE 40 MG VIAL IV (08:02)
[2022-07-03] MEDS: SENNOSIDES 8.6 MG TABLET PO (08:03)
[2022-07-03] MEDS: MAGNESIUM OXIDE 400 MG TABLET PO (08:03)
[2022-07-03] MEDS: METOPROLOL IR 25 MG TABLET PO ×2 (08:03→20:45)
[2022-07-03] MEDS: SODIUM CHLORIDE 0.9% FLUSH 10 ML IV ×2 (08:03→20:43)
[2022-07-03] MEDS: ACETAMINOPHEN 325 MG TABLET 650 MG PO ×2 (08:11→20:44)
--- NOTE | 2022-07-03 09:23 | P.TELICUPN_ITS ---
Subjective Subjective IF CAMERA ACTIVATED, patient seen via real-time interactive audiovisual communication: Camera activated Consent obtained for tele-machine sign writer care: Yes Patient Location: ICU Provider location (State): [place] Other participants/roles: RN, PHARMACIST Current Medications Current Medications Medications: Home Medications pantoprazole 40 mg tablet,delayed release 40 mg PO DAILY #30 tabs 03/03/21 [Rx Confirmed 07/03/22] pravastatin 20 mg tablet 40 mg PO BEDTIME #30 tabs 03/03/21 [Rx Confirmed 07/03/22] tamsulosin 0.4 mg capsule (Flomax) 0.8 mg PO DAILY #60 caps 07/28/21 [Rx Confirmed 07/03/22] levothyroxine 125 mcg tablet (Synthroid) 150 mcg PO DAILY@0600 10/26/21 [History Confirmed 07/03/22] digoxin 125 mcg (0.125 mg) tablet 0.25 mg PO DAILY@1700 #90 tabs 11/01/21 [Rx Confirmed 07/03/22] furosemide 20 mg tablet (Lasix) 10 mg PO BID #60 tabs 11/01/21 [Rx Confirmed 07/03/22] lisinopril 5 mg tablet 2.5 mg PO DAILY #90 tabs 11/01/21 [Rx Confirmed 07/03/22] metoprolol succinate 50 mg tablet,extended release 24 hr 50 mg PO DAILY #90 tabs 11/01/21 [Rx Confirmed 07/03/22] potassium chloride 20 mEq tablet,extended release(part/cryst) (Klor-Con M) 40 meq PO DAILYCC #30 tabs 11/01/21 [Rx Confirmed 07/03/22] spironolactone 25 mg tablet 25 mg PO DAILY #30 tabs 11/01/21 [Rx Confirmed 07/03/22] Nasacort Allergy 1 spray intranasal DAILY PRN Allergy Symptoms 07/03/22 [History Confirmed 07/03/22] naphazoline 0.025 %-pheniramine 0.3 % eye drops (Naphcon-A) 1 drp EYE-BOTH QID PRN Allergy Symptoms 07/03/22 [History Confirmed 07/03/22] Visit Medications (administered) Generic Name Dose Route Start Last Admin Trade Name Freq PRN Reason Stop Dose Admin Acetaminophen 650 mg 06/30/22 08:25 07/03/22 08:11 Acetaminophen 325 Mg Tablet PO 650 mg Q6HR PRN Administration Fever/Mild Pain (1-3) Digoxin 0.125 mg 07/02/22 09:00 07/02/22 09:58 Digoxin 0.125 Mg Tablet PO 0.125 mg Q48H EVARISTO Administration Heparin Sodium/Dextrose 25,000 unit in 500 mls @ 24 mls/hr 06/30/22 19:15 07/03/22 07:25 Heparin Drip IV 1,700 unit/hr CONT EVARISTO 34 mls/hr Titration Protocol 1,200 UNIT/HR Piperacillin Sod/Tazobactam 100 mls @ 25 mls/hr 07/01/22 09:00 07/03/22 09:15 Sod 3.375 gm/ Sodium Chloride IV Infused Q8H EVARISTO Infusion Bumetanide 10 mg/ Sodium 100 mls @ 5 mls/hr 07/02/22 01:30 07/02/22 21:07 Chloride IV 5 mls/hr CONT EVARISTO Administration Levothyroxine Sodium 125 mcg 07/01/22 06:00 07/03/22 06:12 Levothyroxine 125 Mcg Tablet PO 125 mcg DAILY@0600 EVARISTO Administration Magnesium Oxide 400 mg 07/03/22 09:00 07/03/22 08:03 Magnesium Oxide 400 Mg Tablet PO 400 mg DAILY EVARISTO Administration Melatonin 9 mg 06/30/22 23:45 07/02/22 19:52 Melatonin 3 Mg Tablet PO 9 mg BEDTIME EVARISTO Administration Metoprolol Tartrate 25 mg 07/01/22 09:00 07/03/22 08:03 Metoprolol Ir 25 Mg Tablet PO 25 mg BID EVARISTO Administration Pantoprazole Sodium 40 mg 06/30/22 09:00 07/03/22 08:02 Pantoprazole 40 Mg Vial IV 40 mg DAILY EVARISTO Administration Potassium Chloride 40 meq 07/02/22 17:00 07/03/22 08:02 Potassium Chloride 20 Meq Tab PO 40 meq BIDWM EVARISTO Administration Sennosides 8.6 mg 06/30/22 09:15 07/03/22 08:03 Sennosides 8.6 Mg Tablet PO 8.6 mg DAILY EVARISTO Administration Sodium Chloride 10 ml 06/30/22 09:00 07/03/22 08:03 Sodium Chloride 0.9% Flush IV 10 ml BID EVARISTO Administration Objective Labs Result Diagrams: 07/03/22 05:49 07/03/22 05:49 Labs: Laboratory Results - last 24 hr 06/30/22 07/01/22 07/02/22 05:00 07:30 10:34 WBC RBC Hgb Hct MCV MCH MCHC RDW Plt Count Neut % (Auto) Lymph % (Auto) [place] % (Auto) Eos % (Auto) Baso % (Auto) Neut # (Auto) Lymph # (Auto) [place] # (Auto) Eos # (Auto) Baso # (Auto) APTT 32 D Sodium Potassium Chloride Carbon Dioxide BUN Creatinine Estimated GFR BUN/Creatinine Ratio Glucose Serum Osmolality 271 L Calcium Magnesium Total Bilirubin AST ALT Alkaline Phosphatase Total Protein Albumin Globulin Albumin/Globulin Ratio Urine Osmolality 410 07/02/22 07/02/22 07/02/22 13:30 15:10 17:40 WBC RBC Hgb Hct MCV MCH MCHC RDW Plt Count Neut % (Auto) Lymph % (Auto) [place] % (Auto) Eos % (Auto) Baso % (Auto) Neut # (Auto) Lymph # (Auto) [place] # (Auto) Eos # (Auto) Baso # (Auto) APTT 62 H D Sodium 124 L Potassium 7.8 H* D 3.3 L D Chloride 91 L Carbon Dioxide 25 BUN 31 H Creatinine 1.34 H Estimated GFR 55 L BUN/Creatinine Ratio 23.1 H Glucose 154 H Serum Osmolality Calcium 7.6 L Magnesium Total Bilirubin AST ALT Alkaline Phosphatase Total Protein Albumin Globulin Albumin/Globulin Ratio Urine Osmolality 07/03/22 07/03/22 07/03/22 00:30 00:30 05:49 WBC 13.0 H RBC 4.02 L Hgb 12.9 L Hct 38.0 L MCV 94.5 MCH 32.2 MCHC 34.0 RDW 14.4 Plt Count 166 Neut % (Auto) 78.6 H Lymph % (Auto) 10.5 L [place] % (Auto) 8.3 Eos % (Auto) 2.1 Baso % (Auto) 0.5 Neut # (Auto) 22142 H Lymph # (Auto) 1400 [place] # (Auto) 1100 H Eos # (Auto) 300 Baso # (Auto) 100 APTT 75 H* D Sodium 130 L Potassium 3.3 L Chloride 89 L Carbon Dioxide 29 BUN 41 H Creatinine 1.42 H Estimated GFR 51 L BUN/Creatinine Ratio 28.9 H Glucose 126 H Serum Osmolality Calcium 8.7 Magnesium Total Bilirubin AST ALT Alkaline Phosphatase Total Protein Albumin Globulin Albumin/Globulin Ratio Urine Osmolality 07/03/22 07/03/22 07/03/22 05:49 05:49 05:49 WBC RBC Hgb Hct MCV MCH MCHC RDW Plt Count Neut % (Auto) Lymph % (Auto) [place] % (Auto) Eos % (Auto) Baso % (Auto) Neut # (Auto) Lymph # (Auto) [place] # (Auto) Eos # (Auto) Baso # (Auto) APTT 150 H* D Sodium 130 L Potassium 2.9 L Chloride 88 L Carbon Dioxide 29 BUN 39 H Creatinine 1.38 H Estimated GFR 53 L BUN/Creatinine Ratio 28.3 H Glucose 137 H Serum Osmolality Calcium 8.5 Magnesium 1.8 Total Bilirubin 2.0 H AST 98 H ALT 212 H Alkaline Phosphatase 238 H Total Protein 6.7 Albumin 3.1 L Globulin 3.6 Albumin/Globulin Ratio 0.9 L Urine Osmolality Exam Vital Signs (past 8 hours): - 07/03/22 02:00 07/03/22 02:00 07/03/22 04:00 Temperature Pulse Rate 92 H Respiratory Rate 24 Blood Pressure 88/64 L Pulse Oximetry Oxygen Delivery Method Room Air 07/03/22 03:00 07/03/22 03:00 07/03/22 04:00 Temperature Pulse Rate 88 Respiratory Rate 23 Blood Pressure 102/64 101/59 L Pulse Oximetry Oxygen Delivery Method 07/03/22 04:00 07/03/22 05:00 07/03/22 05:00 Temperature Pulse Rate 89 87 Respiratory Rate 21 21 Blood Pressure 114/61 Pulse Oximetry 97 Oxygen Delivery Method 07/03/22 06:00 07/03/22 06:00 07/03/22 07:00 Temperature Pulse Rate 86 Respiratory Rate 21 Blood Pressure 96/58 L 108/62 Pulse Oximetry 95 Oxygen Delivery Method 07/03/22 07:00 07/03/22 08:00 07/03/22 08:00 Temperature 96.8 F L Pulse Rate 83 Respiratory Rate 19 Blood Pressure Pulse Oximetry 95 Oxygen Delivery Method Room Air 07/03/22 08:00 07/03/22 08:00 07/03/22 09:00 Temperature Pulse Rate 84 Respiratory Rate 21 Blood Pressure 114/69 126/70 Pulse Oximetry 96 Oxygen Delivery Method 07/03/22 09:00 Temperature Pulse Rate 90 Respiratory Rate 23 Blood Pressure Pulse Oximetry 96 Oxygen Delivery Method Oxygen Delivery Method Room Air Oxygen Flow Rate 0 Quality TeleICU VTE Deep Vein Thrombosis/Pulmonary Embolism Present on Admission: No Assessment & Plan Assessment & Plan narrative: Assessment & Plan narrative: NEURO: -- Needs PT/OT and OOB as tolerated RESP: -- ON room air -- CXR showed bilateral cephalization which has slightly improved from prior CXR -- continue gentle diuresis to seek net negative fluid balance/ good response, still need another 24 hr of IV bumex -- Goal SpO2 > 90% CVS: # A fib w/ RVR -- Possible related to sepsis, PE, and volume overload -- Recommend continuing gentle diuresis to seek net negative fluid balance - BMP Q12H, replace K& Mag as needed for goal of 4 & 2 -- Cont metoprolol IR 25 mg BID -- Cont digoxin lper cardiology, watch level closely in the sitting of GLENROY -- High lytes goal (MG >2 and K >4) -- CHADVASC score 4 -> on heparin infusion # Hx of HfrEF -- Agree with diuresis as above -- Cardiology following -- EF dropped to 35%, will need ischemia work up after resolution of Afib w RVR and GLENROY HEME: # RLE DVT -- On heparin infusion, may consider switching to PO NOACs -- Encourage early mobility : # GLENROY -- Secondary to renal venous congestion -- Agree with diuresis -- Avoid nephrotoxin agents -- Recommend holding lisinopril due to GLENROY -- Monitor UOP -- Daily BMP # Hyponatremia -- Secondary to hypervolemia -- Improving w/ diuresis GI: # Abnormal LFTs -- Secondary to hepatic congestion -- Agree w/ diuresis -- Trend daily LFTs ENDO: -- GOal BS < 180 Time Spent With Patient Critical Care time: I spent a total of [30] minutes of critical care time on this patient's care today; this time is exclusive of procedural time.
[2022-07-03] MEDS: POTASSIUM CHLORIDE IN WATER 10 MEQ/100 ML PIGGYBACK 100 MEQ IV ×3 (10:10→18:14)
[2022-07-03] MEDS: MAGNESIUM SULFATE 2 GM/50 ML PIGGYBACK IV (10:12)
--- NOTE | 2022-07-03 11:01 | PT.IPTN ---
Current Diagnoses Sepsis, unspecified organism (06/29/22) Physical Therapy Treatment Note M2 PT-IP Current Condition Start: 06/30/22 13:29 Freq: NEEDED Status: Active Protocol: Document 07/01/22 11:12 AB (Rec: 07/01/22 13:34 AB [id number]) Physical Therapy Current Condition Current Condition Evaluation Date 07/01/22 Treatment Diagnosis CHF exacerbation; difficulty in walking Onset Date 06/29/22 M3 PT-IP Subjective Start: 06/30/22 13:29 Freq: NEEDED Status: Active Protocol: Document 07/03/22 10:34 KS (Rec: 07/03/22 12:07 KS [id number]) Subjective Physical Therapy Visit Type Type Treatment Note Visit Start Time 10:34 Visit Stop Time 11:01 Total Visit Minutes 27 Notes Co treat w/ OT due to pts assistance needs. Number of VICE PRESIDENT PAYER Visits 1 M4 PT-IP Mobility and Gait Start: 06/30/22 13:29 Freq: NEEDED Status: Active Protocol: Document 07/03/22 10:34 KS (Rec: 07/03/22 12:07 KS [id number]) PT-Transfer Assessment Sit to and From Stand Sit to and from Stand Moderate Assistance,2 Person Assistance,Use of Upper Extremities Equipment Transfer Assistive Device Gait Belt,Front Wheeled Walker Orthotic/Prosthetic Devices or Brace: No Transfers Transfer Destination Chair Transfer Technique Pt ambulated w/ FWW Transfer Ability Level of Assist Moderate Assistance,2 Person Assistance,Use of Upper Extremities Comments Mobility Comments Pt in chair upon arrival. RN applied dressings to pt BLE, pt w/ blisters and weeping and assisted w/ IV management. Pt Mod A x2 for sit<>Stand w/ FWW. He then ambulated ~30 ft w/ FWW Min A x2 w/ wide based gait and decreased stride and foot clearance, requires cues for FWW mgmt. Pt w/ quick approach to fatigue and returned to chair. Left in chair w/ all needs in reach. Gait Assessment Gait Gait Assistance Required: Minimum Assistance,2 Person Assist Distance (Feet) 30 Able to Maintain Weight Bearing Status No During Gait Assistive Devices Assistive Device Gait Belt,Front Wheeled Walker Orthotic/Prosthetic Devices or Brace: No Gait Deviations General Gait Pattern Decreased Stride Length, Decreased Feet Clearance,Step- to Gait,Wide Based Gait Factors Limiting Gait Function Factors Limiting Gait Function Decreased Activity Tolerance, Decreased Sensation,Decreased Strength,Difficulty Following Directions,Limited Range of Motion,Pain,Poor Balance,Poor Safety Awareness Comments Gait Comments Pt limited by low tolerance for activity, weakness, poor safety awareness and poor balance. Requires verbal and tactile cues for FWW use and mgmt. High fall risk. PT-Balance Assessment Sitting Balance and Reactions Static Sitting Balance Ability Fair Dynamic Sitting Balance Ability Poor Standing Balance and Reactions Static Standing Balance Ability Poor Dynamic Standing Balance Ability Poor Device Used FWW M5 PT-IP Objective Assessments Start: 06/30/22 13:29 Freq: NEEDED Status: Active Protocol: Document 07/01/22 11:12 AB (Rec: 07/01/22 13:34 AB [id number]) Orientation Orientation/Cognition Level of Alertness Confusional State Orientation Name Language Function Ability Hard of Hearing Safety Awareness Decreased Safety Awareness Comments pt uses an amplifier pt also stated that he has R eye vision loss Strength Lower Extremity Strength Assessment Bilaterally Impaired Comments Strength Comments unable to complete MMT due to BLE c/o pain and tender to touch Muscle Tone Muscle Tone WNL Yes M6 PT-IP Treatment Start: 06/30/22 13:29 Freq: NEEDED Status: Active Protocol: Document 07/03/22 10:34 KS (Rec: 07/03/22 12:07 KS [id number]) Physical Therapy Treatment Education Education Provided Safety M7 PT-IP Assessment and Plan Start: 06/30/22 13:29 Freq: NEEDED Status: Active Protocol: Document 07/03/22 10:34 KS (Rec: 07/03/22 12:07 KS [id number]) PT Summary Assessment and Plan Potential Rehabilitation Potential Fair Summary Impairments Pain,ROM,Strength,Balance, Coordination,Sensation,Tone, Cognition,Bed Mobility, Transfers,Gait,Activity Tolerance Progress Towards Goals Slow Progress due to Medical Issues,Slow Progress due to Activity Tolerance Assessment Summary Pt continues to require 2 PA and is very limited by weakness and low activity tolerance and only able to ambulate 30 ft. He is not safe to return home and will require SNF to improve functional mobility independence. Goals Bed Mobility Goal Moderate Assistance Transfer Goal Moderate Assistance,Front Wheeled Walker Gait Goal Moderate Assistance,Front Wheel Walker Gait Distance 50 Other Goals improve bed mobility, transfers using FWW/4WW SBA, ambulation using FWW/4WW SBA 150ft Days to Meet Goals 10 Frequency of Treatment Frequency Of Treatment Once a Day Treatment Plan Physical Therapy Treatment Plan Bed Mobility Training,Transfer Training,Gait Training, Therapeutic Exercise,Balance Retraining,Discharge Planning, Hot or Cold Pack,Neuromuscular Re-ed,Coordination Retraining Precautions Other Precautions falls Recommendations To Nursing Amount of Assist Needed 2 Person Assist Discharge Recommendations PT Discharge Recommendations SNF Rehab Equipment Needed for Home Before FWW if going home and not safe Discharge with 4WW Transportation Needs at Discharge Wheelchair/Cabulance
--- NOTE | 2022-07-03 11:01 | OT.IP.TRT ---
Current Diagnoses Sepsis, unspecified organism (06/29/22) Occupational Therapy Treatment Note M2 OT-IP Current Condition Start: 07/02/22 10:09 Freq: Status: Active Protocol: Document 07/02/22 09:22 [facility] (Rec: 07/02/22 10:29 [facility] [id number]) Occupational Therapy Current Condition Current Condition Evaluation Date 07/02/22 Treatment Diagnosis CHF exacerbation Diagnosis Onset Date 06/29/22 M3 OT- IP Subjective and Pain Start: 07/02/22 10:09 Freq: Status: Active Protocol: Document 07/03/22 10:34 [facility] (Rec: 07/03/22 11:54 [facility] [id number]) OT- Subjective Occupational Therapy Visit Type Type Treatment Note Visit Start Time 10:34 Visit Stop Time 11:01 Total Visit Minutes 27 Occupational Therapy Visit Comments Patient Comments Pt wanting to get up and walk, FOOD SERVICE HOTEL RUNNER and nurse present for part of the session. Patient/Caregiver Goals TO get better. OT Pain Assessment Pain When Pain Assessed During Mobility Pain Present Pain Present Pain Reported M4 OT- IP ADL's Start: 07/02/22 10:09 Freq: Status: Active Protocol: Document 07/03/22 10:34 [facility] (Rec: 07/03/22 11:54 [facility] [id number]) OT ADL-Grooming General Evaluation Grooming Ability Standby Assistance Comments OT Grooming Comments Pt able to complete while sitting on the recliner. OT ADL-Oral Care General Eval Oral Care Ability Standby Assistance Areas of Assistance Retrieving/Set-Up of Items Comments Oral Care Comments Set-up assist for swab to help get the phlegm out of his mouth. OT ADL-Dressing General Eval Lower Body Dressing Ability Maximum Assistance Comments OT Dressing Comments Nurse able to cover pt's blisters so able to get his slipper on. MAX A to darline slippers. M5 OT- IP IADL's Start: 07/02/22 10:09 Freq: Status: Active Protocol: Document 07/02/22 09:22 [facility] (Rec: 07/02/22 10:29 [facility] [id number]) OT-Instrumental Activities of Daily Living Deficits IADL Deficits Identified Deficits Home Safety Awareness Awareness of Need for Assistance at Home Good Awareness Ability to Problem Solve Emergency Able to Problem Solve Situations Medication Management Medication Management Caregiver Administers Money Management Money Management Caregiver Provides Assistance Meal Preparation Meal Preparation Caregiver Provides Assist Metal Precision Machine Assembler Metal Precision Machine Assembler Caregiver Provides Assist Driving Driving Caregiver Provides Assist M6 OT- IP Functional Cognition Start: 07/02/22 10:09 Freq: Status: Active Protocol: Document 07/03/22 10:34 [facility] (Rec: 07/03/22 11:54 [facility] [id number]) Cognitive Factors Limiting Selfcare Function Cognitive Comments Cognitive Assessment Comments Pt able to follow directions and commands for ADl and mobility needs. Pt very motivated to get better and willing to get up. M7 OT- IP Mobility and Balance Start: 07/02/22 10:09 Freq: Status: Active Protocol: Document 07/03/22 10:34 [facility] (Rec: 07/03/22 11:54 [facility] [id number]) OT-Transfer Assessment Sit to and From Stand Sit to and from Stand Moderate Assistance,2 Person Assistance Technique Transfer Destination Chair Devices Transfer Assistive Devices Gait Belt,Front Wheeled Walker Comments Mobility Comments MODA X 2 to stand and SANJAY x2 to walk in the room and also needing nurse to manage both IV lines/poles OT- Balance Assessment Sitting Balance and Reactions Static Sitting Balance Ability Good Dynamic Sitting Balance Ability Good Standing Balance and Reactions Static Standing Balance Ability Fair Dynamic Standing Balance Ability Fair M9 OT- IP Assessment and Plan Start: 07/02/22 10:09 Freq: Status: Active Protocol: Document 07/03/22 10:34 [facility] (Rec: 07/03/22 11:54 [facility] [id number]) OT Summary Assessment and Plan Potential Rehabilitation Potential Good Analytic Complexity at Evaluation Moderate Summary OT Impairments Pain,Balance,Functional Mobility,Grooming,Dressing, Toileting,Bathing,Toilet Transfers,Shower Transfers, Activity Tolerance Progress Towards Goals Slow Progress due to Medical Issues,Slow Progress due to Activity Tolerance Assessment Summary Pt motivated to get up and move in the room. Pt still needing two person assist to stand and SANJAY x2 with FWW to walk in the room. Pt will greatly benefit from skilled rehab when medically stable. Goals Self-Feeding Goal Independent Grooming Goal Independent Dressing Goal Independent Toileting Goal Independent Bathing Goal Standby Assistance Toilet Transfer Goal Independent Shower Transfer Goal Standby Assistance Days to Meet Goals 19 Frequency of Treatment Frequency Of Treatment Once a Day Treatment Plan OT Treatment Plan ADL Training,Functional Cognition Training,Functional Mobility,Patient/Family Education,Discharge Planning Other Treatment Recommendations and Next Transfer to [facility] [place] with MODA X 1 Treatment Focus Discharge Recommendations OT Discharge Recommendations SNF Rehab Transportation Needs at Discharge Wheelchair/Cabulance
[2022-07-03] MEDS: APIXABAN 5 MG TABLET 10 MG PO ×2 (11:11→20:44)
--- NOTE | 2022-07-03 12:31 | PC.NURSE ---
Patient requiring/requesting potassium to be run at 25mls/hr with a NS rider at 25ml/hr, c/o infusion burning.
--- NOTE | 2022-07-03 14:20 | PM.PN.1 ---
Subjective Subjective Date Patient Seen: 07/03/22 Time Patient Seen: 14:20 Interval history: CC: swollen legs, fast heart rate Pt doing ok this morning, eating breakfast, afib with rvr has calmed down to normal rate, extremely good urine output noted yesterday 11 liters on bumex drip, legs still quite tender but he agrees not nearly as bad as they were. Interested in discussing with case managements options for getting a chair for home. also has his own walker in his car he is eager to have access to although willing to use our equipment for now. Exam Vital Signs (past 8 hours): - 07/03/22 07:00 07/03/22 07:00 07/03/22 08:00 Temperature 96.8 F L Pulse Rate 83 Respiratory Rate 19 Blood Pressure 108/62 Pulse Oximetry 95 Oxygen Delivery Method 07/03/22 08:00 07/03/22 08:00 07/03/22 08:00 Temperature Pulse Rate 84 Respiratory Rate 21 Blood Pressure 114/69 Pulse Oximetry 96 Oxygen Delivery Method Room Air 07/03/22 09:00 07/03/22 09:00 07/03/22 10:00 Temperature Pulse Rate 90 120 H Respiratory Rate 23 25 H Blood Pressure 126/70 Pulse Oximetry 96 96 Oxygen Delivery Method 07/03/22 10:01 07/03/22 10:01 07/03/22 11:17 Temperature Pulse Rate 94 H 90 Respiratory Rate 22 Blood Pressure 100/52 L Pulse Oximetry 97 Oxygen Delivery Method 07/03/22 11:19 07/03/22 11:00 07/03/22 11:01 Temperature Pulse Rate 96 H 93 H Respiratory Rate 28 H 24 Blood Pressure Pulse Oximetry 99 98 Oxygen Delivery Method Room Air 07/03/22 11:01 07/03/22 12:00 07/03/22 12:00 Temperature Pulse Rate 90 Respiratory Rate 25 H Blood Pressure 89/61 L 104/60 Pulse Oximetry 97 Oxygen Delivery Method 07/03/22 12:00 07/03/22 13:00 07/03/22 13:00 Temperature 97.5 F L Pulse Rate 113 H Respiratory Rate 18 Blood Pressure 109/56 L Pulse Oximetry 97 Oxygen Delivery Method Oxygen Delivery Method Room Air Oxygen Flow Rate 0 Const General: cooperative and comfortable HENMT Head: atraumatic Resp Other: moving air ok clear to auscultation bilaterally Cardio Other: regular rate lots of pvcs GI Other: soft active bowel sounds Neuro General: patient alert, patient awake, patient oriented x3, moves all extremities and other (very poor hearing) Extrem Other: both legs quite erythematous and exquisitely tender to touch Psych Speech and Movement: speech and movement normal Objective Labs Result Diagrams: 07/03/22 05:49 07/03/22 05:49 Labs: Laboratory Results - last 24 hr 07/02/22 07/02/22 07/02/22 13:30 15:10 17:40 WBC RBC Hgb Hct MCV MCH MCHC RDW Plt Count Neut % (Auto) Lymph % (Auto) [place] % (Auto) Eos % (Auto) Baso % (Auto) Neut # (Auto) Lymph # (Auto) [place] # (Auto) Eos # (Auto) Baso # (Auto) APTT 62 H D Sodium 124 L Potassium 7.8 H* D 3.3 L D Chloride 91 L Carbon Dioxide 25 BUN 31 H Creatinine 1.34 H Estimated GFR 55 L BUN/Creatinine Ratio 23.1 H Glucose 154 H Calcium 7.6 L Magnesium Total Bilirubin AST ALT Alkaline Phosphatase Total Protein Albumin Globulin Albumin/Globulin Ratio 07/03/22 07/03/22 07/03/22 00:30 00:30 05:49 WBC 13.0 H RBC 4.02 L Hgb 12.9 L Hct 38.0 L MCV 94.5 MCH 32.2 MCHC 34.0 RDW 14.4 Plt Count 166 Neut % (Auto) 78.6 H Lymph % (Auto) 10.5 L [place] % (Auto) 8.3 Eos % (Auto) 2.1 Baso % (Auto) 0.5 Neut # (Auto) 49608 H Lymph # (Auto) 1400 [place] # (Auto) 1100 H Eos # (Auto) 300 Baso # (Auto) 100 APTT 75 H* D Sodium 130 L Potassium 3.3 L Chloride 89 L Carbon Dioxide 29 BUN 41 H Creatinine 1.42 H Estimated GFR 51 L BUN/Creatinine Ratio 28.9 H Glucose 126 H Calcium 8.7 Magnesium Total Bilirubin AST ALT Alkaline Phosphatase Total Protein Albumin Globulin Albumin/Globulin Ratio 07/03/22 07/03/22 07/03/22 05:49 05:49 05:49 WBC RBC Hgb Hct MCV MCH MCHC RDW Plt Count Neut % (Auto) Lymph % (Auto) [place] % (Auto) Eos % (Auto) Baso % (Auto) Neut # (Auto) Lymph # (Auto) [place] # (Auto) Eos # (Auto) Baso # (Auto) APTT 150 H* D Sodium 130 L Potassium 2.9 L Chloride 88 L Carbon Dioxide 29 BUN 39 H Creatinine 1.38 H Estimated GFR 53 L BUN/Creatinine Ratio 28.3 H Glucose 137 H Calcium 8.5 Magnesium 1.8 Total Bilirubin 2.0 H AST 98 H ALT 212 H Alkaline Phosphatase 238 H Total Protein 6.7 Albumin 3.1 L Globulin 3.6 Albumin/Globulin Ratio 0.9 L [facility] Medical History Alcohol abuse Congestive heart failure Depression Esophageal ulceration Essential hypertension GERD (gastroesophageal reflux disease) Hypothyroidism Mixed hyperlipidemia Venous stasis Surgical History Status post appendectomy Family History (Updated 06/30/22 @ 11:20 by Roma Bennett DO) Other Congestive heart failure Social History household members: spouse Smoking Status: Never smoker alcohol intake: never Assessment & Plan Assessment & Plan narrative: #AFib with RVR improved RVR, appreciate input from specialists, continue regime of metoprolol and dig. Continue with treating infection as well.? Echo showed no significant change.? CK and troponin are negative.? #Acute on chronic systolic heart failure exacerbation likely related to AFib with RVR Continue Bumex drip and aggressive diuresis with metoprolol 25 mg twice daily.? Continue to hold lisinopril and spironolactone due to acute kidney injury and relative hypotension.? Echo shows no significant change from previous one earlier this year, other than right ventricle enlargement.? ? CK and troponin negative. #Hypothyroidism TSH was normal.? Monitor and continue on same dose. #Peripheral edema with chronic wounds with possible cellulitis Bumex drip.? Wound Care consulted.? Ceftriaxone discontinued yesterday.? Will continue with Zosyn.? Patient has GI symptoms with penicillin presumably Augmentin.? We will watch closely. #Acute on chronic kidney disease overall stable despite diuresis, overall improving Continue Bumex drip, holding caleb and lisinopril for now, monitor #Hyperkalemia improved since admit, now with hypokalemia Replace and monitor potassium and will restart spironolactone when back in range #Hypomagnesemia Continue to replace magnesium and recheck in a.m. #Right lower extremity DVT stop heparin, transitioning to eliquis loading dose #Hyponatremia suspect due to fluid overload, slowly improving continue diuresis #UTI ecoli, sensitive continue abx #Possible pneumonia got rocephin initially then switched to Zosyn monitor respiratory status stable on RA #Hepatic dysfunction suspected secondary to hepatic congestion from congestive heart failure Continue to monitor Disposition.? Patient will likely require skilled care facility on discharge, anticipate a couple more days of inpatient hospitalization due to need for ongoing iv diuresis GI ppx: pantoprazole DVT ppx: off heparin drip, transitioning to eliquis MDM: Avani Code status: credit risk modeler Spent With Patient Critical Care time: I spent a total of [] minutes of critical care time on this patient's care today; this time is exclusive of procedural time. Quality VTE Deep Vein Thrombosis/Pulmonary Embolism Present on Admission: No
[2022-07-03] MEDS: POTASSIUM CHLORIDE IN WATER 10 MEQ/100 ML PIGGYBACK 25 MEQ IV (15:28)
[2022-07-03] MEDS: BUMETANIDE DRIP IV (18:15)
[2022-07-03] MEDS: SODIUM CHLORIDE 0.9% IV (18:15)
[2022-07-03] MEDS: MELATONIN 3 MG TABLET 9 MG PO (20:44)
[2022-07-03] MEDS: NAPHCON A EYE 1 EACH EYE-BOTH (20:53)
[2022-07-04] VITALS (7 sets, daily range): BP systolic 107–132; BP diastolic 60–66; PULSE 93–118; RESP 15–27; TEMP 36.2–36.8; O2SAT 97–100
[2022-07-04 04:55] LABS: HEMOLYSIS < 15 (0-50); Potassium 3.5 mmol/L (3.4-5.1)
[2022-07-04] MEDS: PANTOPRAZOLE DR 40 MG TABLET PO (06:35)
[2022-07-04] MEDS: LEVOTHYROXINE 125 MCG TABLET PO (06:35)
[2022-07-04] MEDS: POTASSIUM CHLORIDE 20 MEQ TAB 40 MEQ PO ×2 (08:47→17:08)
[2022-07-04] MEDS: SENNOSIDES 8.6 MG TABLET PO (08:47)
[2022-07-04] MEDS: MAGNESIUM OXIDE 400 MG TABLET PO (08:47)
[2022-07-04] MEDS: APIXABAN 5 MG TABLET 10 MG PO (08:47)
[2022-07-04] MEDS: METOPROLOL IR 25 MG TABLET PO (08:47)
[2022-07-04] MEDS: DIGOXIN 0.125 MG TABLET PO (08:48)
--- NOTE | 2022-07-04 11:33 | PT.IPTN ---
Current Diagnoses Sepsis, unspecified organism (06/29/22) Physical Therapy Treatment Note M2 PT-IP Current Condition Start: 06/30/22 13:29 Freq: NEEDED Status: Active Protocol: Document 07/01/22 11:12 AB (Rec: 07/01/22 13:34 AB [id number]) Physical Therapy Current Condition Current Condition Evaluation Date 07/01/22 Treatment Diagnosis CHF exacerbation; difficulty in walking Onset Date 06/29/22 M3 PT-IP Subjective Start: 06/30/22 13:29 Freq: NEEDED Status: Active Protocol: Document 07/04/22 11:00 KS (Rec: 07/04/22 12:15 KS [id number]) Subjective Physical Therapy Visit Type Type Treatment Note Visit Start Time 11:00 Visit Stop Time 11:33 Total Visit Minutes 33 Notes Co treat w/ OT due to pts assistance needs. Number of RETAIL CUSTOMER SERVICE SPECIALIST Visits 2 M4 PT-IP Mobility and Gait Start: 06/30/22 13:29 Freq: NEEDED Status: Active Protocol: Document 07/04/22 11:00 KS (Rec: 07/04/22 12:15 KS [id number]) PT-Transfer Assessment Sit to and From Stand Sit to and from Stand Moderate Assistance,2 Person Assistance,Use of Upper Extremities Equipment Transfer Assistive Device Gait Belt,Front Wheeled Walker Orthotic/Prosthetic Devices or Brace: No Transfers Transfer Destination Chair,Wheelchair Transfer Technique Pt ambulated w/ FWW Transfer Ability Level of Assist Moderate Assistance,2 Person Assistance,Use of Upper Extremities Comments Mobility Comments Pt in chair upon arrival and agreeable to ambulate. RN and DIRECTOR OF HEALTH CARE MARKETING present for IV pole management and w/c follow. Pt required Mod A x2 for intial sit<>Stand, then ambulated ~30 ft before requiring seated rest break in w/c. Pt has quick approach fatigue, requires inceased assistance w / distance, cues for FWW mgmt and becomes SOB. After 3 min seated rest break, pt ambulated additional 20 ft w/ FWW requring Min to Mod A and verbal and tactile cues for FWW mgmt, avoiding obstacles, upright posture, and staying close to FWW. Pt transported back to room in w/c and transferred back to his chair w/ Min A x2. Pt left in chair w/ all needs in reach. Gait Assessment Gait Gait Assistance Required: Minimum Assistance,2 Person Assist Distance (Feet) 30 Able to Maintain Weight Bearing Status No During Gait Assistive Devices Assistive Device Gait Belt,Front Wheeled Walker Orthotic/Prosthetic Devices or Brace: No Gait Deviations General Gait Pattern Decreased Stride Length, Decreased Feet Clearance,Step- to Gait,Wide Based Gait Factors Limiting Gait Function Factors Limiting Gait Function Decreased Activity Tolerance, Decreased Sensation,Decreased Strength,Difficulty Following Directions,Limited Range of Motion,Pain,Poor Balance,Poor Safety Awareness Comments Gait Comments Pt limited by low tolerance for activity, weakness, poor safety awareness and poor balance. Requires verbal and tactile cues for FWW use and mgmt. High fall risk. Stair Climbing Assessment Comments Stair Climbing Comments Did not assess, pt w/ low activity tolerance, SOB, and poor safety awareness. PT-Balance Assessment Sitting Balance and Reactions Static Sitting Balance Ability Good Dynamic Sitting Balance Ability Fair Standing Balance and Reactions Static Standing Balance Ability Fair Dynamic Standing Balance Ability Poor Device Used FWW M5 PT-IP Objective Assessments Start: 06/30/22 13:29 Freq: NEEDED Status: Active Protocol: Document 07/01/22 11:12 AB (Rec: 07/01/22 13:34 AB [id number]) Orientation Orientation/Cognition Level of Alertness Confusional State Orientation Name Language Function Ability Hard of Hearing Safety Awareness Decreased Safety Awareness Comments pt uses an amplifier pt also stated that he has R eye vision loss Strength Lower Extremity Strength Assessment Bilaterally Impaired Comments Strength Comments unable to complete MMT due to BLE c/o pain and tender to touch Muscle Tone Muscle Tone WNL Yes M6 PT-IP Treatment Start: 06/30/22 13:29 Freq: NEEDED Status: Active Protocol: Document 07/04/22 11:00 KS (Rec: 07/04/22 12:15 KS [id number]) Physical Therapy Treatment Education Education Provided Safety M7 PT-IP Assessment and Plan Start: 06/30/22 13:29 Freq: NEEDED Status: Active Protocol: Document 07/04/22 11:00 KS (Rec: 07/04/22 12:15 KS [id number]) PT Summary Assessment and Plan Potential Rehabilitation Potential Fair Summary Impairments Pain,ROM,Strength,Balance, Coordination,Sensation,Tone, Cognition,Bed Mobility, Transfers,Gait,Activity Tolerance Progress Towards Goals Slow Progress due to Medical Issues,Slow Progress due to Activity Tolerance Assessment Summary Pt w/ slightly improved mobility today, however remains limited by weakness and low tolerance for activity . Requires 2 PA and close w/c follow w/ max cues during ambulation and has poor safety awareness, all contributing to pt being at high risk of falling. At this time, he is not safe to return home and will require SNF to improve strength and functional mobility. Goals Bed Mobility Goal Moderate Assistance Transfer Goal Moderate Assistance,Front Wheeled Walker Gait Goal Moderate Assistance,Front Wheel Walker Gait Distance 50 Other Goals improve bed mobility, transfers using FWW/4WW SBA, ambulation using FWW/4WW SBA 150ft Days to Meet Goals 10 Frequency of Treatment Frequency Of Treatment Once a Day Treatment Plan Physical Therapy Treatment Plan Bed Mobility Training,Transfer Training,Gait Training, Therapeutic Exercise,Balance Retraining,Discharge Planning, Hot or Cold Pack,Neuromuscular Re-ed,Coordination Retraining Precautions Other Precautions falls Recommendations To Nursing Amount of Assist Needed 2 Person Assist Discharge Recommendations PT Discharge Recommendations SNF Rehab Equipment Needed for Home Before FWW if going home and not safe Discharge with 4WW Transportation Needs at Discharge Wheelchair/Cabulance
--- NOTE | 2022-07-04 12:18 | CM.DPNOTE ---
DCP Cont PT and MD recommending SNF; reviewed these recommendations w/patient and he is adamantly refusing to DC to SNF. Patient states he will go home upon DC and spouse Avani will take him home. 40 yo son Antony lives w/patient and spouse, is unemployed and sleeps daily until 1600. Patient does not count on son for support. Spouse Avani works at [employer] in the [employer] Thursday-Thursday Explained the potential risk of returning home when, functionally, patient requiring a lot of assist. Patient states understanding, reiterates he will not be discharging to a SNF and will use the built in anchors in his RV to get to and from his chair to the BR etc. Patient does not eat until 1700 and so spouse can help in fixing a meal, snack etc Discussed HH therapies, patient does not refuse this option, however, does make an argument that HH PT is futile because there is not much space in the RV to get around w/his 4WW. Patient loves his four wheeled walker and does not want to use a Front wheeled walker. Patient has a ramp to enter and exit the RV Updated RN and suggested patient be discharged home when medically stable, per patient's wishes, which could be as soon as tomorrow 10.8.22 JW
--- NOTE | 2022-07-04 12:57 | P.DS_ITS ---
History of Present Illness History of Present Illness Date Patient Seen: 07/04/22 Time Patient Seen: 12:57 Chief complaint: wheezing/abd pain/weak x2 days Narrative: This is a pleasant 77-year-old male with multiple medical problems who presents to the ER with a 2 day history of progressive worsening wheezing, shortness of breath, abdominal pain and weakness. Patient has a history of AFib with RVR for which he was hospitalized in September. He has a history of chronic peripheral edema with chronic venous stasis changes with wounds. Patient was found to be in atrial fibrillation with rapid ventricular rate, acute on chronic kidney disease, elevated liver function tests and worsening peripheral edema was admitted for further evaluation and treatment Past medical history: 1. AFib with RVR. Not on anticoagulation due to patient choice 2. Congestive heart failure with ejection fraction on last echo in November of 201911/17/2029 5% 3. Distant history of alcohol abuse 4. Essential hypertension 5. Depression 6. Esophagitis 7. Peripheral edema with chronic venous stasis changes 8. Hypothyroidism 9. Hyperlipidemia 10. GERD 11. Obesity 12. Chronic hearing loss Allergies: Penicillin unclear of response Past surgical history tonsillectomy Social history: Patient is , his 's name is Avani. They live in a trailer in in a [facility]. Patient is retired. He went through school through the 8th grade. He is a [employer]. Health related behavior: Patient does not currently smoke or use alcohol or recreational drugs Family history: Father at age 67 from heart disease, deafness, diabetes, hypertension Mother at age 95 from heart disease stroke deafness hypertension Patient has a sibling who is had a stroke and hypertension Review of system it is unclear when patient had last bowel movement Patient denies any bright red blood per rectum or black tarry stools or hematochezia Patient denies any chest pain, fevers, chills, palpitations, lightheadedness or dizziness Patient denies any headaches. Patient has had abdominal pain and worsening peripheral edema 12 point review of systems is otherwise negative other than in HPI Discharge Providers Provider Date of admission: 06/29/22 23:38 Discharge Date: 07/04/22 Primary care physician: Zackary Hoover MD Consults: 06/29/22 23:38 Consult to Physician Stat Comment: Consulting Provider: Zackary Hoover Reason for consultation: admission Has provider been notified: No 06/29/22 23:39 Consult to Physician Urgent Comment: Consulting Provider: Olivia Richter Reason for consultation: admission 06/30/22 08:26 Consult to Tele-regulatory submissions specialist Routine Comment: Consulting Provider: Lisbeth [employer] Reason for consultation: [employer] Has provider been notified: No 06/30/22 08:52 Consult to Dietitian, Adult Urgent Comment: Reason For Exam: lower extremity wounds Consult to Wound Care Routine Comment: Consulting Provider: [facility] 06/30/22 08:53 Consult to Physician Routine Comment: Consulting Provider: Roma Bennett Reason for consultation: CHF Has provider been notified: Yes 06/30/22 08:56 Consult to Physical Therapy Evaluate & Treat Comment: Physician Instructions: Evaluate and Treat 06/30/22 13:57 Consult to Inpatient Wound Care Nurse Routine Comment: Reason for consultation: chronic leg wounds 07/01/22 08:38 Consult to Respiratory Therapy Evaluate & Treat Comment: Physician Instructions: Evaluate and treat 07/02/22 08:36 Consult to Occupational Therapy Evaluate & Treat Comment: Physician Instructions: Evaluate and treat Discharge provider: Anabel Montana MD Summary Hospital Course Discharge Diagnosis: AFib with RVR improved Acute on chronic systolic heart failure with significant fluid overload status post 11 L diuresis with Bumex drip Acute on chronic renal failure, improved Chronic peripheral edema with chronic wounds, improved UTI, treated Pneumonia improved home on Augmentin for 7 days Hospital Course: Patient was admitted to the hospital with AFib with RVR, acute kidney injury, acute on chronic systolic heart failure with marked fluid overload and worsening peripheral edema with chronic lower extremity wounds that were worsened acutely infected and probable pneumonia. Patient admitted to the hospital in treated with IV diuresis. Cardiology in tele regulatory submissions specialist were consulted. Patient was transitioned to a Bumex drip and loaded with digoxin. His digoxin level was subtherapeutic. He had initially hyperkalemia then hypokalemia. Had hypomagnesemia. This was treated and patient also had negative CK and troponins. He had an echo that was not significantly changed from previous. He was diagnosed with DVT and started on heparin which was then transitioned to Eliquis prior to discharge. He had significant ectopy initially on presentation but this improved as his AFib with RVR improved and he was successfully diuresed. He had a total of 11 L of fluid off during his hospitalization. He was discharged to home because he refused to go to skilled care facility which would have been a better choice for him. We will have home health go home with them. He will follow-up with his PCP next week Dr. Hoover. He needs a CMP and CBC and digoxin level on Thursday. He will need outpatient ischemic workup with Cardiology. He will go home on Lasix 40 mg daily Synthroid, digoxin 0.25 e very other day, metoprolol succinate 25 mg twice daily and potassium 40 mEq daily and pravastatin 40 mg at bedtime and Flomax 0.8 mg daily. Spironolactone and lisinopril will be held until acute kidney injury is improved Status at Discharge Cognitive/behavioral status at discharge: at baseline, oriented Functional status at discharge: uses cane/walker Overall status at discharge: patient is progressing back to baseline Time Spent with Patient Time spent: Greater than 30 minutes Exam Vital Signs (past 8 hours): - 07/04/22 07:00 07/04/22 08:56 07/04/22 09:00 Temperature 98.3 F 98.3 F Pulse Rate 95 H 95 H Respiratory Rate 15 15 Blood Pressure 108/66 108/66 Pulse Oximetry 97 97 Oxygen Delivery Method Room Air Oxygen Flow Rate 0 07/04/22 12:15 Temperature 97.2 F L Pulse Rate 93 H Respiratory Rate 17 Blood Pressure 132/64 Pulse Oximetry 98 Oxygen Delivery Method Oxygen Flow Rate 0 Oxygen Delivery Method Room Air Oxygen Flow Rate 0 Narrative Exam Narrative: Afebrile vital signs are stable. Heart rate in the 90s now O2 sat on room air is 99% blood pressure 132/64 Patient is alert and oriented x3 HEENT unremarkable Neck supple without adenopathy or thyromegaly Chest: Clear to auscultation with improved air exchange in the bases Cor: Irregularly irregular rhythm at a well-controlled rate Abdomen: Positive bowel sounds, soft, nontender, nondistended, obese Extremities: No further edema. He has chronic erythematous rash on the lower legs and wounds appear improved. Pulses are 2+ bilateral dorsalis pedis Objective Labs Result Diagrams: 07/03/22 05:49 07/04/22 04:00 Labs: Laboratory Results - last 24 hr 07/04/22 04:00 Potassium 3.5 PFSH Medical History Alcohol abuse Congestive heart failure Depression Esophageal ulceration Essential hypertension GERD (gastroesophageal reflux disease) Hypothyroidism Mixed hyperlipidemia Venous stasis Surgical History Status post appendectomy Family History (Updated 06/30/22 @ 11:20 by Roma Bennett DO) Other Congestive heart failure Social History household members: spouse Smoking Status: Never smoker alcohol intake: never Discharge Assessment & Plan Assessment and Plan Assessment: Assessment 1.? AFib with RVR, resolved Plan:? Suspect AFib with RVR was due to patient being subtherapeutic on digoxin and unclear if this was noncompliance. Will continue outpatient digoxin every 48 hours due to acute kidney injury and he will be due to have blood work on Thursday. Will continue anticoagulation with Eliquis to treat his DVT. Will continue on the metoprolol. He will follow-up with Dr. Hoover next week. He is had successful diuresis. He will need ischemic workup as outpatient. Assessment 2.? Acute on chronic systolic heart failure exacerbation likely related to AFib with RVR, improved Plan: ?Will DC home on metoprolol and furosemide. Will continue with metoprolol 25 mg twice daily.? We will hold the lisinopril due to acute kidney injury and relative hypotension.? Reviewed echo which showed no significant change from previous 1 earlier this year.? Other than right ventricle enlargement.? Will continue holding spironolactone for now.? CK and troponin negative. Assessment 3. Hypothyroidism Plan:? Thyroid was normal.? Will continue to monitor and continue on same dose. Assessment 4. Peripheral edema with chronic wounds with possible cellulitis Plan:? Improved. Will discharge home on furosemide with outpatient wound care in Augmentin for another 7 days Assessment 5.? Acute on chronic kidney disease overall stable despite diuresis, overall improving Plan:? DC Bumex drip. Will do outpatient furosemide. Will continue to hold spironolactone.? Will hold lisinopril for now. Assessment 6.? Hyperkalemia improved since admit, now with hypokalemia Plan:? Will replace. Will continue to monitor and recheck labs on Thursday Assessment 7. Hypomagnesemia Plan:? Will replace magnesium and recheck in a.m. Assessment 8. Right lower extremity DVT Plan: Will have 6 more days of Eliquis 10 mg twice daily and then dosing will be 5 mg twice daily. Discussed side effects of medication with patient. Assessment 9. Hyponatremia suspect due to fluid overload, slowly improving Plan: Will continue diuresis Assessment 11. GERD Plan: Continue proton pump inhibitor as outpatient Assessment 12. UTI ecoli, sensitive Plan:? Completely treated. Will remove Page catheter and see if patient can urinate Assessment 13. Possible pneumonia.? Improved. Status post 4 days of IV antibiotics. We will give another 7 days of Augmentin. Assessment 14. Hepatic dysfunction suspected secondary to hepatic congestion from congestive heart failure, improving Plan: Continue to monitor Plan of Treatment: Medication Changes 1. digoxin .125mcg every 48 hours. not taking digoxin .25mcg daily 2. furosemide 40mg in am 3. Eliquis 10mg po twice daily for 6 days and then 5mg twice daily for treat DVT 4. augmentin 875mg by mouth twice daily for 7 days for infection 5. Hold lisinopril and spironolactone until you see dr. hoover 6. metoprolol succinate 25mg twice daily instead of 50mg daily 7. take magnesium daily same other potassium, omeprazole and thyroid meds Discharge Plan Discharge Plan Patient Disposition: Home Health Service Discharge orders & Medications Prescriptions: New magnesium oxide 400 mg (241.3 mg magnesium) Tablet 400 mg PO DAILY Qty: 30 0RF levothyroxine [Synthroid] 125 mcg Tablet 125 mcg PO DAILY@0600 Qty: 30 0RF digoxin 125 mcg (0.125 mg) Tablet 0.125 mg PO Q48H Qty: 60 0RF amoxicillin-pot clavulanate 875-125 mg Tablet 1 tab PO BID Qty: 14 0RF Eliquis 5 mg Tablet 10 mg PO BID Qty: 60 0RF Continued pantoprazole 40 mg Tablet,Delayed Release (Dr/Ec) 40 mg PO DAILY Qty: 30 0RF pravastatin 20 mg Tablet 40 mg PO BEDTIME Qty: 30 0RF levothyroxine [Synthroid] 125 mcg tablet 150 mcg PO DAILY@0600 potassium chloride [Klor-Con M20] 20 mEq Tablet,Er Particles/Crystals 40 meq PO DAILYCC Qty: 30 1RF Naphcon-A 0.025-0.3 % drops 1 drp EYE-BOTH QID PRN (Reason: Allergy Symptoms) Label Comments: INSTILL 1 TO 2 DROPS IN BOTH EYES UP TO FOUR TIMES DAILY NEEDED FOR ALLERGY SYMPTOMS Nasacort Allergy 55 mcg 1 spray intranasal DAILY PRN (Reason: Allergy Symptoms) tamsulosin [Flomax] 0.4 mg Capsule 0.8 mg PO DAILY Qty: 60 0RF Changed furosemide [Lasix] 20 mg tablet 40 mg PO BID Qty: 60 6RF metoprolol succinate 50 mg Tablet Extended Release 24 Hr 25 mg PO BID Qty: 90 3RF Discontinued spironolactone 25 mg Tablet 25 mg PO DAILY Qty: 30 1RF lisinopril 5 mg Tablet 2.5 mg PO DAILY Qty: 90 3RF digoxin 125 mcg (0.125 mg) Tablet 0.25 mg PO DAILY@1700 Qty: 90 1RF Follow up/Referrals: Zackary Hoover MD [Primary Care Provider] - 07/07/22 Diet/Activity/Treatments Diet: Low-sodium Discharge Data Primary Care Provider: Zackary Hoover Quality VTE Deep Vein Thrombosis/Pulmonary Embolism Present on Admission: No
[2022-07-04 13:21] LABS: Red Cell Distribution Width 13.9 % (11.6-14.8); White Blood Cell Count 10.7 X10^3/uL (4.5-11.0)
[2022-07-04 13:25] LABS: Hematocrit 42.8 % (41-53); Hemoglobin 14.6 g/dL (13.5-17.5); Mean Corpuscular HGB Conc 34.2 % (30-36); Mean Corpuscular Hemoglobin 32.7 PG (26-34); Mean Corpuscular Volume 95.6 fL (80-100); Platelet Count 218 X10^3/uL (150-400); Red Blood Cell Count 4.48 X10^6/uL (4.5-5.9)
[2022-07-04 13:27] LABS: Add Manual Diff / Slide Review YES
[2022-07-04 13:33] LABS: Magnesium 1.8 mg/dL (1.6-2.3)
[2022-07-04 14:01] LABS: Alanine Aminotransferase 182 IU/L (<50); Albumin 3.8 g/dL (3.5-5.0); Alkaline Phosphatase 265 U/L (38-126); Aspartate Aminotransferase 88 IU/L (17-59); BUN Creatinine Ratio 34.8 (6-22); Bilirubin Total 1.8 mg/dL (0.2-1.3); Blood Urea Nitrogen 46 mg/dL (9-20); Calcium 9.6 mg/dL (8.4-10.2); Carbon Dioxide 32 mmol/L (22-32); Chloride 88 mmol/L (98-107); Estimated Glomerular Filt Rate 56 mL/min (>60); Globulin 3.8 g/dL (1.7-4.1); Glucose 137 mg/dL (80-110); HEMOLYSIS < 15 (0-50); Potassium 3.2 mmol/L (3.4-5.1); Sodium 133 mmol/L (137-145); Total Protein 7.6 g/dL (6.3-8.2)
[2022-07-04 14:04] LABS: Neutrophils Absolute Manual 7704 /uL (3000-5900); Total Cells Counted 100
[2022-07-04 14:05] LABS: RBC Morphology Normal Morphology
[2022-07-04] MEDS: POTASSIUM CHLORIDE 20 MEQ/15 ML UDC 40 MEQ PO (14:43)
[2022-07-04 17:19] LABS: HEMOLYSIS < 15 (0-50)
[2022-07-04] MEDS: WARFARIN 5 MG TABLET PO (18:46)
[2022-07-04] MEDS: ENOXAPARIN 150 MG/ML SYRINGE 110 MG SUBCUT (18:47)
--- NOTE | 2022-07-04 19:20 | PC.NURSE ---
Discharge instructions given to . Teaching done on lovonex injections and observed as she prepared the correct dose and injected pt. She says that she feels confident that she can give the injections twice daily as ordered. Instructed to bring Pt to office thursday for blood draw. Discharged per w/c to family vehicle.
== END 2022-07-04 19:23 | disposition home health service (06) | DRG 871 ==
LOC: ED 23:38 → AC 23:39 → ICU 06-30
PROVIDERS: Family Medicine; Internal Medicine Critical Care Medicine; Internal Medicine Pulmonary Disease; Admitting Provider Family Medicine; Emergency Provider Emergency Medicine; PCP Family Medicine; Referring Provider Emergency Medicine; Visit Provider Family Medicine
DX: A41.9 Sepsis, unspecified organism (principal); I50.23 Acute on chronic systolic (congestive) heart failure; J18.9 Pneumonia, unspecified organism; N17.9 Acute kidney failure, unspecified; N39.0 Urinary tract infection, site not specified; I13.0 Hypertensive heart and chronic kidney disease with heart failure and stage 1 through stage 4 chronic kidney disease, or unspecified chronic kidney disease; I82.411 Acute embolism and thrombosis of right femoral vein; E87.1 Hypo-osmolality and hyponatremia; L03.115 Cellulitis of right lower limb; I48.91 Unspecified atrial fibrillation; I95.9 Hypotension, unspecified; R65.20 Severe sepsis without septic shock; B96.20 Unspecified Escherichia coli [E. coli] as the cause of diseases classified elsewhere; N18.9 Chronic kidney disease, unspecified; E80.6 Other disorders of bilirubin metabolism; E03.9 Hypothyroidism, unspecified; E83.42 Hypomagnesemia; K21.9 Gastro-esophageal reflux disease without esophagitis; E87.6 Hypokalemia; E78.2 Mixed hyperlipidemia; Z20.822 Contact with and (suspected) exposure to COVID-19
CPT/HCPCS: 36415; 71045; 74177; 80048; 80053; 80069; 80162; 81001; 82550; 83605; 83690; 83735; 83880; 83930; 83935; 84132; 84145; 84300; 84443; 84484; 85007; 85025; 85610; 85730; 87040; 87077; 87086; 87186; 87635; 87797; 93005; 93970; 94640; 96365; 96375; 96376; 97116; 97163; 97166; 97530; 99284; C9803; C8929; C9113; J0696; J1160; J1644; J1650; J1940; J2543; J3475; J7613; Q9957; Q9967

== ENCOUNTER → 2022-07-08 16:45 | Outpatient (ROUT) | payer OTHER, SELFPAY ==
[2022-06-30 00:43] VITALS: BMI 36.9
[2022-07-08 16:55] LABS: INR 1.3 (0.9-1.3); Prothrombin Time 14.4 SECONDS (10.1-12.7)
== END ==
PROVIDERS: PCP Family Medicine; Visit Provider Family Medicine
DX: I48.91 Unspecified atrial fibrillation (principal); I50.1 Left ventricular failure, unspecified
CPT/HCPCS: 85610

== ENCOUNTER → 2022-07-14 18:12 | Outpatient (ROUT) | payer OTHER, SELFPAY ==
[2022-06-30 00:43] VITALS: BMI 36.9
== END ==
PROVIDERS: PCP Family Medicine; Visit Provider Family Medicine
DX: I48.91 Unspecified atrial fibrillation (principal)
CPT/HCPCS: 85610

== ENCOUNTER → 2022-10-06 16:02 | Outpatient (ROUT) | payer OTHER, SELFPAY ==
[2022-06-30 00:43] VITALS: BMI 36.9
[2022-10-06 16:13] LABS: Prothrombin Time 58.5 SECONDS (10.1-12.7)
== END ==
PROVIDERS: PCP Family Medicine; Visit Provider Family Medicine
DX: I48.91 Unspecified atrial fibrillation (principal)
CPT/HCPCS: 85610

== ENCOUNTER 2022-10-10 11:05 | Inpatient (IN) | payer OTHER, SELFPAY ==
[2022-06-30 00:43] VITALS: BMI 36.9
[2022-10-10] VITALS (17 sets, daily range): BP systolic 101–122; BP diastolic 55–70; PULSE 69–91; RESP 14–24; TEMP 36.1–36.4; O2SAT 95–100; BMI 36.7
--- NOTE | 2022-10-10 11:32 | ED_ITS ---
HPI - Extremity Problem General Chief complaint: Extremity Problem,Nontraumatic Stated complaint: Lower extremity swelling Time Seen by Provider: 10/10/22 11:16 Source: EMS Mode of arrival: EMS History of Present Illness HPI Narrative: Patient is a 77-year-old male history of atrial fibrillation on Eliquis and digoxin, hypothyroid, congestive heart failure presenting today with lower extremity blisters. He reports that his right lower extremity blister showed up overnight. Does appear that he has chronic blisters on his legs. His knees are wrapped in Kerlix were he says blisters used to be. He denies any chest pain or shortness of breath. He is not had any fever or chills. EMS reports extremely poor living conditions. His is with him now. He denies any chest pain palpitations shortness of breath fever or chills. He apparently was started on Keflex by his PCP unclear why. However the blister started before the Keflex. He does not have any mouth pain or sores. Related Data Home Medications Medication Instructions Recorded Confirmed levothyroxine 125 mcg tablet 137 mcg PO DAILY@0600 10/26/21 10/10/22 (Synthroid) naphazoline 0.025 %-pheniramine 1 drp EYE-BOTH QID PRN Allergy 07/03/22 10/10/22 0.3 % eye drops (Naphcon-A) Symptoms cephalexin 500 mg tablet 500 mg PO BID 10/10/22 10/10/22 furosemide 20 mg tablet (Lasix) 80 mg PO BID 10/10/22 10/10/22 levothyroxine 125 mcg tablet 137 mcg PO DAILY@0600 10/10/22 10/10/22 (Synthroid) Previous Rx's Medication Instructions Recorded pantoprazole 40 mg tablet,delayed 40 mg PO DAILY #30 tabs 03/03/21 release pravastatin 20 mg tablet 40 mg PO BEDTIME #30 tabs 03/03/21 tamsulosin 0.4 mg capsule (Flomax) 0.8 mg PO DAILY #60 caps 07/28/21 potassium chloride 20 mEq 40 meq PO DAILYCC #30 tabs 11/01/21 tablet,extended release(part/cryst) (Klor-Con M) digoxin 125 mcg (0.125 mg) tablet 0.125 mg PO Q48H #60 tabs 07/04/22 magnesium oxide 400 mg (241.3 mg 400 mg PO DAILY #30 tabs 07/04/22 magnesium) tablet metoprolol succinate 50 mg 25 mg PO BID #90 tabs 07/04/22 tablet,extended release 24 hr Allergies Allergy/AdvReac Type Severity Reaction Status Date / Time Penicillins [PENICILLINS] AdvReac Intermediate Gastrointestinal Verified 10/10/22 11:07 Upset Review of Systems Review of Systems ROS Unobtainable: All systems reviewed & are unremarkable except as noted in HPI and below Patient History Medical History Alcohol abuse Congestive heart failure Depression Esophageal ulceration Essential hypertension GERD (gastroesophageal reflux disease) Hypothyroidism Mixed hyperlipidemia Venous stasis Surgical History Status post appendectomy Family History Other Congestive heart failure Social History household members: spouse Smoking Status: Never smoker alcohol intake: never Smoking Status: Never smoker alcohol intake frequency: 0-2 drinks per day Substance Use Type: does not use Exam Initial Vital Signs Initial Vital Signs: Vital Signs Pulse Rate 82 10/10/22 11:03 Pulse Oximetry 95 10/10/22 11:03 GENERAL: Chronically ill 77-year-old male HEENT: Head atraumatic,EOMI, pupils reactive, face symmetric, moist mucous membranes CARDIOVASCULAR: Irregularly irregular RESPIRATORY: Breath sounds equal bilaterally, no wheezes rales or rhonchi. ABDOMEN: Soft, nontender. Normoactive bowel sounds all 4 quadrants. No guarding or rebound. EXTREMITIES: Normal range of motion, no clubbing or edema. Neurovascularly intact NEUROLOGICAL: Alert and oriented x4. SKIN: Multiple blisters on lower extremities left dorsal foot large blister measuring 20 cm x 15 cm clear fluid around his ankle. Right foot also has multiple blisters. Right foot is cool to touch dopplerable pedal pulse is found. Patient has wounds posterior both knees where it appears that blisters were previously. He also has some mild erythema on his thighs and shins. Course Orders Ordered: ED Orders 10/10/22 11:14 EKG-12 Lead Stat 10/10/22 11:34 CRP [C-Reactive Protein Quant] Stat Complete Blood Count AUTO DIFF Stat Comprehensive Metabolic Panel Stat ESR [Erythrocyte Sedimentation Rate] Stat Lactate (Lactic Acid) Stat NT-proBNP (BNP-Adult 18+) Stat Partial Thromboplastin Time Stat Procalcitonin Stat Prothrombin Time INR Stat Troponin & CK Cardiac Panel Stat 10/10/22 11:55 Blood Culture Stat 10/10/22 11:56 COVID19 -Nasal RAPID/Pre-Proc Stat 10/10/22 12:14 EKG-12 Lead Stat 10/10/22 15:12 XR chest 1V Stat 10/10/22 16:17 Urinalysis and Microscopic Stat Hydrocodone Bitart/Acetaminophen (Hydrocodone/Acet 5/325 Tablet) 1 tab PO Q4H PRN PRN Reason: Pain, Moderate (4-6) Bisacodyl (Bisacodyl 10 Mg Supp) 10 mg DE DAILY PRN PRN Reason: Constipation Bumetanide (Bumetanide 1 Mg/4 Ml Vial) 2 mg IV BID [facility] Digoxin (Digoxin 0.125 Mg Tablet) 0.125 mg PO Q48H [facility] Docusate Sodium (Docusate 100 Mg Capsule) 100 mg PO BID [facility] Ceftriaxone Sodium 1,000 mg/ (Sodium Chloride) 100 mls @ 200 mls/hr IV Q24H [facility] Levothyroxine Sodium (Levothyroxine 125 Mcg Tablet) 137 mcg PO DAILY@0600 [facility] Magnesium Oxide (Magnesium Oxide 400 Mg Tablet) 400 mg PO DAILY [facility] Metoprolol Succinate (Metoprolol Er 50 Mg Tablet) 25 mg PO BID [facility] Naloxone HCl (Naloxone 0.4 Mg/Ml Vial) 0.2 mg IV Q2MIN PRN PRN Reason: Opiate Reversal Naphazoline- Pheniramine [Naphcon -A] 0.025-0.3 % Drops 1 drop EYE-BOTH QID PRN PRN Reason: Allergy Symptoms Pantoprazole Sodium (Pantoprazole Dr 40 Mg Tablet) 40 mg PO DAILY EVARISTO Potassium Chloride (Potassium Chloride 20 Meq Tab) 40 meq PO DAILYCC [facility] Pravastatin Sodium (Pravastatin 20 Mg Tablet) 40 mg PO BEDTIME EVARISTO Tamsulosin HCl (Tamsulosin 0.4 Mg Capsule) 0.8 mg PO DAILY EVARISTO Discontinued Medications Furosemide (Furosemide 40 Mg/4 Ml Vial) 40 mg IV NOW ONE Stop: 10/10/22 13:03 Last Admin: 10/10/22 13:40 Dose: 40 mg Documented By: NR Ceftriaxone Sodium 1,000 mg/ (Sodium Chloride) 100 mls @ 200 mls/hr IV NOW ONE Stop: 10/10/22 13:33 Last Infusion: 10/10/22 14:27 Dose: 0 mls/hr Documented By: Admin: 10/10/22 13:48 Dose: 200 mls/hr Documented By: NR Vancomycin HCl/Dextrose (Vancomycin) 1,500 mg in 300 mls @ 200 mls/hr IV NOW ONE Stop: 10/10/22 15:01 Last Infusion: 10/10/22 15:53 Dose: 0 mls/hr Documented By: Admin: 10/10/22 14:24 Dose: 200 mls/hr Documented By: NR Morphine Sulfate (Morphine 4 Mg/Ml Inj) 4 mg IV NOW ONE Stop: 10/10/22 13:35 Last Admin: 10/10/22 13:48 Dose: 4 mg Documented By: OMERO Vital Signs Vital signs: Vital Signs - 8 hr 10/10/22 11:04 10/10/22 11:03 10/10/22 11:04 Temperature 97 F L Pulse Rate 73 82 Respiratory Rate 18 Blood Pressure 122/63 122/63 Pulse Oximetry 100 95 Oxygen Delivery Method Room Air 10/10/22 11:04 10/10/22 11:30 10/10/22 11:36 Temperature Pulse Rate 82 86 Respiratory Rate Blood Pressure 101/63 Pulse Oximetry 99 99 Oxygen Delivery Method 10/10/22 11:36 10/10/22 12:00 10/10/22 12:00 Temperature Pulse Rate 86 75 Respiratory Rate Blood Pressure 110/58 L Pulse Oximetry 100 100 Oxygen Delivery Method 10/10/22 12:30 10/10/22 12:30 10/10/22 13:00 Temperature Pulse Rate 90 Respiratory Rate Blood Pressure 118/63 107/58 L Pulse Oximetry 100 Oxygen Delivery Method 10/10/22 13:00 10/10/22 13:30 10/10/22 13:30 Temperature Pulse Rate 85 84 Respiratory Rate 17 18 Blood Pressure 121/60 Pulse Oximetry 99 100 Oxygen Delivery Method 10/10/22 14:00 10/10/22 14:00 10/10/22 14:30 Temperature Pulse Rate 81 Respiratory Rate 16 Blood Pressure 101/59 L 109/56 L Pulse Oximetry 99 Oxygen Delivery Method 10/10/22 14:30 10/10/22 15:00 10/10/22 15:00 Temperature Pulse Rate 84 86 Respiratory Rate 24 18 Blood Pressure 119/55 L Pulse Oximetry 100 100 Oxygen Delivery Method MDM - Extremity (Nontraumatic) Lab Data Result diagrams: 10/10/22 11:34 10/10/22 11:34 Labs: Lab Results 10/10/22 10/10/22 10/10/22 Range/Units 11:34 11:34 11:34 WBC 11.1 H (4.5-11.0) X10^3/uL RBC 3.15 L (4.5-5.9) X10^6/uL Hgb 9.8 L (13.5-17.5) g/dL Hct 29.7 L (41-53) % MCV 94.3 (80-100) fL MCH 31.2 (26-34) PG MCHC 33.1 (30-36) % RDW 14.5 (11.6-14.8) % Plt Count 199 (150-400) X10^3/uL Neut % (Auto) 79.0 H (50-75) % Lymph % (Auto) 13.7 L (25-40) % Crook % (Auto) 5.4 (3-14) % Eos % (Auto) 1.3 L (2-4) % Baso % (Auto) 0.6 (0-2) % Neut # (Auto) 8800 H (6942-9127) /uL Lymph # (Auto) 1500 (2007-9911) /uL Crook # (Auto) 600 (0-900) /uL Eos # (Auto) 100 (0-450) /uL Baso # (Auto) 100 (0-100) /uL ESR 67 H (0-15) MM/HR PT 18.8 H D (10.1-12.7) SECONDS INR 1.6 H (0.9-1.3) APTT (26-36) SECONDS Sodium 134 L (137-145) mmol/L Potassium 4.5 (3.4-5.1) mmol/L Chloride 97 L (98-107) mmol/L Carbon Dioxide 29 (22-32) mmol/L BUN 19 (9-20) mg/dL Creatinine 1.53 H (0.66-1.25) mg/dL Estimated GFR 47 L (>60) mL/min BUN/Creatinine Ratio 12.4 (6-22) Glucose 102 (80-110) mg/dL Lactate (0.7-2.1) mmol/L Calcium 9.2 (8.4-10.2) mg/dL Total Bilirubin 1.0 (0.2-1.3) mg/dL AST 39 (17-59) IU/L ALT 58 H (<50) IU/L Alkaline Phosphatase 169 H (38-126) U/L Total Creatine Kinase 45 L (55-170) U/L CK-MB (CK-2) TNP CK-MB (CK-2) Rel Index TNP Troponin I < 0.012 (0.01-0.034) ng/mL C-Reactive Protein 4.7 H (<1.0) mg/dL NT-Pro-B Natriuret Pep 3430 H (<450) pg/mL Total Protein 6.9 (6.3-8.2) g/dL Albumin 3.4 L (3.5-5.0) g/dL Globulin 3.5 (1.7-4.1) g/dL Albumin/Globulin Ratio 1.0 (1.0-2.8) Procalcitonin 0.06 (<0.5) ng/mL SARS-CoV-2 (PCR) (Negative) 10/10/22 10/10/22 10/10/22 Range/Units 11:34 11:34 11:56 WBC (4.5-11.0) X10^3/uL RBC (4.5-5.9) X10^6/uL Hgb (13.5-17.5) g/dL Hct (41-53) % MCV (80-100) fL MCH (26-34) PG MCHC (30-36) % RDW (11.6-14.8) % Plt Count (150-400) X10^3/uL Neut % (Auto) (50-75) % Lymph % (Auto) (25-40) % Crook % (Auto) (3-14) % Eos % (Auto) (2-4) % Baso % (Auto) (0-2) % Neut # (Auto) (7892-3813) /uL Lymph # (Auto) (6219-8624) /uL Crook # (Auto) (0-900) /uL Eos # (Auto) (0-450) /uL Baso # (Auto) (0-100) /uL ESR (0-15) MM/HR PT (10.1-12.7) SECONDS INR (0.9-1.3) APTT 39 H (26-36) SECONDS Sodium (137-145) mmol/L Potassium (3.4-5.1) mmol/L Chloride (98-107) mmol/L Carbon Dioxide (22-32) mmol/L BUN (9-20) mg/dL Creatinine (0.66-1.25) mg/dL Estimated GFR (>60) mL/min BUN/Creatinine Ratio (6-22) Glucose (80-110) mg/dL Lactate 1.1 (0.7-2.1) mmol/L Calcium (8.4-10.2) mg/dL Total Bilirubin (0.2-1.3) mg/dL AST (17-59) IU/L ALT (<50) IU/L Alkaline Phosphatase (38-126) U/L Total Creatine Kinase (55-170) U/L CK-MB (CK-2) CK-MB (CK-2) Rel Index Troponin I (0.01-0.034) ng/mL C-Reactive Protein (<1.0) mg/dL NT-Pro-B Natriuret Pep (<450) pg/mL Total Protein (6.3-8.2) g/dL Albumin (3.5-5.0) g/dL Globulin (1.7-4.1) g/dL Albumin/Globulin Ratio (1.0-2.8) Procalcitonin (<0.5) ng/mL SARS-CoV-2 (PCR) Negative (Negative) Imaging Data Chest x-ray: Radiologist's Impression: Signed Patient: Jay Reed MR#: [id number] : 1945 Acct:[id number] Age/Sex: 77 / M Date of Service: 10/10/22 Loc: 222-1 Accession Number: [id number] ?? Procedure: XR chest 1V Ordering Provider: Latesha Khoury D.O. PROCEDURE:? XR CHEST 1V ? INDICATIONS:? sob ? TECHNIQUE:? One view of the chest was acquired.? ? COMPARISON:? [facility], CR, XR CHEST 1V, 07/01/2022, 8:40. ? FINDINGS:? ? Surgical changes and devices:? None.? ? Lungs and pleura:? Patchy bilateral pulmonary opacities are present. ? Mediastinum:? Mediastinal contours appear normal.? Heart size is enlarged. ? Bones and chest wall:? No suspicious bony lesions.? Overlying soft tissues appear unremarkable.? ? IMPRESSION:? Patchy bilateral pulmonary opacities suggestive of pneumonia. ? ? Dictated by: Hannah Sharif M.D. on 10/10/2022 at 16:13 ? ? ECG Data Interpretation: Atrial fibrillation rate [address] changes no T-wave inversions low voltage noted MDM Narrative Medical decision making narrative: Patient is 77-year-old male history of atrial fibrillation on [facility] health problems presenting today with blisters on his feet. Patient reports that they showed up overnight. They are quite large in nature. Although it it does appear that he has had blisters ongoing for awhile. I actually called wound care who came up to see and evaluate patient at bedside. They state that he was a patient of wound care clinic in 2019. For the same problem. He makes very large blisters in bolus. He was encouraged to wear compression socks but he was noncompliant. It is not thought that he is blister showed up overnight he has a chronic ongoing problem. They recommended not to touch the blisters to leave the blisters intact and diurese. Probably due from fluid overload. Patient is not having significant chest pain or shortness of breath. Does not appear to have any respiratory component. Troponin is negative. His mild leukocytosis of 11. He is afebrile. Lactate of 1.1 procalcitonin 0.06 no signs of severe sepsis. Although I do suspect an underl felicitas cellulitis. Keflex can cause Echavarria-Tab but is not a common medication to cause it. He is no mucous membranes involve some likely to be any sort of Jimmy Tab. He is like this is an acute on chronic problem. Patient also is noted to have worse circulation in his lower extremities. Feet are cool slightly mottled Doppler was used to locate pedal pulse in the right foot. Unable to find pedal pulse in the left foot due to blister. Creatinine today is 1.53 slightly more elevated than previously of 1.32. Electrolytes are otherwise stable. Chest x-ray does show pneumonia however patient is not reporting cough or shortness of breath. He is given antibiotics. MDM CC: Blisters Complicating co-morbidities: Obesity congestive heart failure atrial fibrillation hypothyroid Corroborating data: , wound care, previous admission Data collected from: [ ] Medical records reviewed: Previous admission Differential considered: Congestive heart failure fluid overload, Echavarria- Tab, sepsis Exam documented above, pertinent findings include: Significant blisters on lower extremities with mild erythema Lab Test results independently reviewed as above. Pertinent findings: BNP 3400, CBC 11, creatinine 1.53 up from previous 1.32, CRP 4.7, ESR 67 Independently reviewed EKG as above Imaging studies independently reviewed: Chest x-ray pneumonia Consultations: Wound care-came to ED at bedside to evaluate hospitalist: Dr. Padron accepts, also in ED to see and evaluate patient Treatments: Lasix Rocephin vancomycin Re-evaluations: Significant improvement Discussion: As above Diagnosis: Congestive heart failure, cellulitis Disposition: see below, along with detailed discharge instructions that have been reviewed with patient as well as indications for ED re-evaluation and additional outpatient follow up Discharge Plan Departure Patient Disposition: Admitted As Inpatient Clinical Impression: Cellulitis, Congestive heart failure Admit Date/Time: 10/10/22 15:12 Admit Provider: Arley Padron
[2022-10-10 12:18] LABS: Add Manual Diff / Slide Review NO; Basophils Absolute Auto 100 /uL (0-100); Basophils Percent Auto 0.6 % (0-2); Eosinophils Absolute Auto 100 /uL (0-450); Eosinophils Percent Auto 1.3 % (2-4); Hematocrit 29.7 % (41-53); Hemoglobin 9.8 g/dL (13.5-17.5); Lymphocytes Absolute Auto 1500 /uL (1100-4500); Lymphocytes Percent Auto 13.7 % (25-40); Mean Corpuscular HGB Conc 33.1 % (30-36); Mean Corpuscular Hemoglobin 31.2 PG (26-34); Mean Corpuscular Volume 94.3 fL (80-100); Monocytes Absolute Auto 600 /uL (0-900); Monocytes Percent Auto 5.4 % (3-14); Neutrophils Absolute Auto 8800 /uL (1500-7000); Platelet Count 199 X10^3/uL (150-400); Red Blood Cell Count 3.15 X10^6/uL (4.5-5.9); Red Cell Distribution Width 14.5 % (11.6-14.8); White Blood Cell Count 11.1 X10^3/uL (4.5-11.0)
[2022-10-10 12:28] LABS: INR 1.6 (0.9-1.3); Prothrombin Time 18.8 SECONDS (10.1-12.7)
[2022-10-10 12:36] LABS: Erythrocyte Sedimentation Rate 67 MM/HR (0-15); Lactate (Lactic Acid) 1.1 mmol/L (0.7-2.1)
[2022-10-10 12:38] LABS: Alanine Aminotransferase 58 IU/L (<50); Albumin 3.4 g/dL (3.5-5.0); Alkaline Phosphatase 169 U/L (38-126); Aspartate Aminotransferase 39 IU/L (17-59); BUN Creatinine Ratio 12.4 (6-22); Blood Urea Nitrogen 19 mg/dL (9-20); C-Reactive Protein Quant 4.7 mg/dL (<1.0); Calcium 9.2 mg/dL (8.4-10.2); Carbon Dioxide 29 mmol/L (22-32); Chloride 97 mmol/L (98-107); Creatine Kinase 45 U/L (55-170); Estimated Glomerular Filt Rate 47 mL/min (>60); Globulin 3.5 g/dL (1.7-4.1); Glucose 102 mg/dL (80-110); HEMOLYSIS < 15 (0-50); PTT Partial Thromboplastin Tim 39 SECONDS (26-36); Potassium 4.5 mmol/L (3.4-5.1); Sodium 134 mmol/L (137-145); Total Protein 6.9 g/dL (6.3-8.2)
[2022-10-10 12:47] LABS: NT-proBNP (BNP-Adult 18+) 3430 pg/mL (<450); Troponin I < 0.012 ng/mL (0.01-0.034)
[2022-10-10 12:52] LABS: Procalcitonin 0.06 ng/mL (<0.5)
[2022-10-10 13:16] LABS: COVID19 -Nasal RAPID Negative (Negative)
[2022-10-10] MEDS: FUROSEMIDE 40 MG/4 ML VIAL IV (13:40)
[2022-10-10] MEDS: MORPHINE 4 MG/ML INJ IV (13:48)
[2022-10-10] MEDS: cefTRIAXone 1,000 MG in SODIUM CHLORIDE 0.9% 100 ML 200 MG IV (13:48)
[2022-10-10] MEDS: VANCOMYCIN 1,500 MG/300 ML PIGGYBACK 200 MG IV (14:24)
--- NOTE | 2022-10-10 15:12 | DI.RAD.S_ITS ---
PROCEDURE: XR CHEST 1V INDICATIONS: sob TECHNIQUE: One view of the chest was acquired. COMPARISON: [facility], CR, XR CHEST 1V, 07/01/2022, 8:40. FINDINGS: Surgical changes and devices: None. Lungs and pleura: Patchy bilateral pulmonary opacities are present. Mediastinum: Mediastinal contours appear normal. Heart size is enlarged. Bones and chest wall: No suspicious bony lesions. Overlying soft tissues appear unremarkable. IMPRESSION: Patchy bilateral pulmonary opacities suggestive of pneumonia. Dictated by: Hannah Sharif M.D. on 10/10/2022 at 16:13 Approved by: Hannah Sharif M.D. on 10/10/2022 at 16:14
--- NOTE | 2022-10-10 15:33 | PM.HP.1 ---
History of Present Illness History of Present Illness Date Patient Seen: 10/10/22 Time Patient Seen: 15:00 Date of Onset of Symptoms: 10/09/22 Chief complaint: Lower extremity swelling Narrative: PResents from home with with complaint of extremely swollen blisters on both legs. reports they have popped up drastically over last couple days but wound care suspects has been brewing longer. There was one small blister on the R medial ankle which has popped, and several extremely large 15cm+ turbid bullae on L foot and ankle. Seen by wound care in Ed who recommended diuresis to bring them down, attempt to not drain them if possible. He reports otherwise feeling in his usual state of health no extra breathing trouble feeling ok eating ok. If possible would prefer to sleep in a therapy recliner tonight which seems like a reasonable request if it can be accommodated. Patient History Medical History Alcohol abuse Congestive heart failure Depression Esophageal ulceration Essential hypertension GERD (gastroesophageal reflux disease) Hypothyroidism Mixed hyperlipidemia Venous stasis Surgical History Status post appendectomy Family & Social History Family History Other Congestive heart failure Social History: household members spouse Safety & Behavioral: Feels Safe in Current Yes Environment Been Physically Hurt or No Threatened By a Person Tobacco & Substance use: Smoking Status Never smoker alcohol intake never alcohol intake frequency 0-2 drinks per day Substance Use Type does not use Meds Home Medications and Allergies Home Medications Medication Instructions Recorded Confirmed Type pantoprazole 40 mg tablet,delayed 40 mg PO DAILY #30 tabs 03/03/21 10/10/22 Rx release pravastatin 20 mg tablet 40 mg PO BEDTIME #30 tabs 03/03/21 10/10/22 Rx tamsulosin 0.4 mg capsule (Flomax) 0.8 mg PO DAILY #60 caps 07/28/21 10/10/22 Rx levothyroxine 125 mcg tablet 137 mcg PO DAILY@0600 10/26/21 10/10/22 History (Synthroid) potassium chloride 20 mEq 40 meq PO DAILYCC #30 tabs 11/01/21 10/10/22 Rx tablet,extended release(part/cryst) (Klor-Con M) naphazoline 0.025 %-pheniramine 1 drp EYE-BOTH QID PRN Allergy 07/03/22 10/10/22 History 0.3 % eye drops (Naphcon-A) Symptoms digoxin 125 mcg (0.125 mg) tablet 0.125 mg PO Q48H #60 tabs 07/04/22 10/10/22 Rx magnesium oxide 400 mg (241.3 mg 400 mg PO DAILY #30 tabs 07/04/22 10/10/22 Rx magnesium) tablet metoprolol succinate 50 mg 25 mg PO BID #90 tabs 07/04/22 10/10/22 Rx tablet,extended release 24 hr cephalexin 500 mg tablet 500 mg PO BID 10/10/22 10/10/22 History furosemide 20 mg tablet (Lasix) 80 mg PO BID 10/10/22 10/10/22 History levothyroxine 125 mcg tablet 137 mcg PO DAILY@0600 10/10/22 10/10/22 History (Synthroid) Allergies Allergy/AdvReac Type Severity Reaction Status Date / Time Penicillins [PENICILLINS] AdvReac Intermediate Gastrointestinal Verified 10/10/22 11:07 Upset Review of Systems Review of Systems Narrative: all systems reviewed and negative except as otherwise documented in HPI Exam Vital Signs (past 8 hours): - 10/10/22 11:04 10/10/22 11:03 10/10/22 11:04 Temperature 97 F L Pulse Rate 73 82 Respiratory Rate 18 Blood Pressure 122/63 122/63 Pulse Oximetry 100 95 Oxygen Delivery Method Room Air 10/10/22 11:04 10/10/22 11:30 10/10/22 11:36 Temperature Pulse Rate 82 86 Respiratory Rate Blood Pressure 101/63 Pulse Oximetry 99 99 Oxygen Delivery Method 10/10/22 11:36 10/10/22 12:00 10/10/22 12:00 Temperature Pulse Rate 86 75 Respiratory Rate Blood Pressure 110/58 L Pulse Oximetry 100 100 Oxygen Delivery Method 10/10/22 12:30 10/10/22 12:30 10/10/22 13:00 Temperature Pulse Rate 90 Respiratory Rate Blood Pressure 118/63 107/58 L Pulse Oximetry 100 Oxygen Delivery Method 10/10/22 13:00 10/10/22 13:30 10/10/22 13:30 Temperature Pulse Rate 85 84 Respiratory Rate 17 18 Blood Pressure 121/60 Pulse Oximetry 99 100 Oxygen Delivery Method Oxygen Delivery Method Room Air Narrative Exam Narrative: elder gentleman reclining on ED gurney emitting heady odor of garlic Const General: cooperative, comfortable, well developed and No acute distress HENMT Head: normocephalic and atraumatic Resp Other: clear to auscultation bilaterally Cardio Other: regular rate GI Other: normal bowel sounds not distended Neuro General: patient alert, patient awake and patient oriented x3 Extrem Other: tense fluid filled bullae covering most of surface area of medial dorsal L foot and ankle. min 15cm across. R foot and ankle with some smaller popped blisters ~5cm across. both feet with some tender erythema and swelling pitting 2+ Objective Labs Result Diagrams: 10/10/22 11:34 10/10/22 11:34 Labs: Laboratory Results - last 24 hr 10/10/22 10/10/22 10/10/22 11:34 11:34 11:34 WBC 11.1 H RBC 3.15 L Hgb 9.8 L Hct 29.7 L MCV 94.3 MCH 31.2 MCHC 33.1 RDW 14.5 Plt Count 199 Neut % (Auto) 79.0 H Lymph % (Auto) 13.7 L Saline % (Auto) 5.4 Eos % (Auto) 1.3 L Baso % (Auto) 0.6 Neut # (Auto) 8800 H Lymph # (Auto) 1500 Saline # (Auto) 600 Eos # (Auto) 100 Baso # (Auto) 100 ESR 67 H PT 18.8 H D INR 1.6 H APTT Sodium 134 L Potassium 4.5 Chloride 97 L Carbon Dioxide 29 BUN 19 Creatinine 1.53 H Estimated GFR 47 L BUN/Creatinine Ratio 12.4 Glucose 102 Lactate Calcium 9.2 Total Bilirubin 1.0 AST 39 ALT 58 H Alkaline Phosphatase 169 H Total Creatine Kinase 45 L CK-MB (CK-2) TNP CK-MB (CK-2) Rel Index TNP Troponin I < 0.012 C-Reactive Protein 4.7 H NT-Pro-B Natriuret Pep 3430 H Total Protein 6.9 Albumin 3.4 L Globulin 3.5 Albumin/Globulin Ratio 1.0 Procalcitonin 0.06 SARS-CoV-2 (PCR) 10/10/22 10/10/22 10/10/22 11:34 11:34 11:56 WBC RBC Hgb Hct MCV MCH MCHC RDW Plt Count Neut % (Auto) Lymph % (Auto) Saline % (Auto) Eos % (Auto) Baso % (Auto) Neut # (Auto) Lymph # (Auto) Saline # (Auto) Eos # (Auto) Baso # (Auto) ESR PT INR APTT 39 H Sodium Potassium Chloride Carbon Dioxide BUN Creatinine Estimated GFR BUN/Creatinine Ratio Glucose Lactate 1.1 Calcium Total Bilirubin AST ALT Alkaline Phosphatase Total Creatine Kinase CK-MB (CK-2) CK-MB (CK-2) Rel Index Troponin I C-Reactive Protein NT-Pro-B Natriuret Pep Total Protein Albumin Globulin Albumin/Globulin Ratio Procalcitonin SARS-CoV-2 (PCR) Negative Assessment & Plan Assessment & Plan narrative: #lower extremity blisters/bullae per consultation with wound care will seek to diurese preferentially and avoid I&D intentional or not continue wound care consult #cellulitis mild WBC elevation, continue iv abx with rocephin and vanc #afib stable continue metoprolol succ 25 bid Warfarin was supratherapeutic as outpatient so he has been holding it with plans to restart on Thursday - will check levels and see what needs to be done #hypothyroidism stable continue home levothyroxine 137 #seasonal allergies prn drops, nasocort, and refresh eye drops as needed #BPH w/obstr continue home tamsulosin may benefit from a catheter given iv diuresis if unable to urinate conveniently #chronic kidney disease stage 3 continue to hydrate avoid nephrotoxics DVT ppx: SCD on R leg only. takes warfarin, tracking inr and will look to continue PCP: Kiko Code: DNR, ok for life support/ventilation if needed. Baptism- no blood xfusions MDM: Avani [phone] Time Spent With Patient Critical Care time: I spent a total of [] minutes of critical care time on this patient's care today; this time is exclusive of procedural time.
--- NOTE | 2022-10-10 16:10 | PC.NURSE ---
bladder scan prevoid showed 800 or more Ml of urine in pt bladder. Pt voided 500ml into urinal and post void with bladder scan showed between 250-300ml of urine remained
[2022-10-10 17:47] LABS: INR 1.6 (0.9-1.3); Prothrombin Time 18.9 SECONDS (10.1-12.7)
[2022-10-10] MEDS: DIGOXIN 0.125 MG TABLET PO (18:39)
[2022-10-10 19:03] LABS: Appearance Urine UA CLEAR; Bilirubin Urine UA NEGATIVE (NEGATIVE); Color Urine UA YELLOW; Glucose Urine UA NEGATIVE (Negative); Ketones Urine UA NEGATIVE (NEGATIVE); Leukocyte Esterase Urine UA NEGATIVE (NEGATIVE); Nitrite Urine UA NEGATIVE (Negative); Occult Blood Urine UA NEGATIVE (Negative); Protein Urine UA NEGATIVE (Negative); Specific Gravity Urine UA 1.015 (1.000-1.035); Urobilinogen Urine UA 0.2 E.U./dL (0.2)
[2022-10-10 19:15] LABS: Bacteria Urine None Seen; Culture Indicated Urine Cult Not Indicated; RBC Urine None Seen (0-5/HPF); WBC Urine None Seen (0-5/HPF)
[2022-10-10] MEDS: BUMETANIDE 1 MG/4 ML VIAL 2 MG IV (23:08)
[2022-10-10] MEDS: DOCUSATE 100 MG CAPSULE PO (23:09)
[2022-10-10] MEDS: METOPROLOL ER 50 MG TABLET 25 MG PO (23:10)
[2022-10-10] MEDS: PRAVASTATIN 20 MG TABLET 40 MG PO (23:11)
[2022-10-10] MEDS: HYDROCODONE/ACET 5/325 TABLET 1 TAB PO (23:19)
[2022-10-11] VITALS (10 sets, daily range): BP systolic 106–139; BP diastolic 48–88; PULSE 62–99; RESP 19–23; TEMP 35.4–36.9; O2SAT 96–99
[2022-10-11] MEDS: LEVOTHYROXINE 137 MCG TABLET PO (05:29)
[2022-10-11] MEDS: HYDROCODONE/ACET 5/325 TABLET 1 TAB PO ×4 (05:29→21:07)
--- NOTE | 2022-10-11 08:37 | PM.PN.1 ---
Subjective Subjective Date Patient Seen: 10/11/22 Time Patient Seen: 08:37 Interval history: Patient seen and evaluated this morning resting comfortably. Feet are elevated. Patient said he had no K night. Patient is very hard of hearing and difficult to get a history from. He says he would like to get up in a chair. Says he is hungry but just once a little bit to eat. Not complaining of pain. Reduction of bullae and blisters on his feet. Although still quite impressive. Exam Vital Signs (past 8 hours): - 10/11/22 05:14 Temperature 97.4 F L Pulse Rate 94 H Respiratory Rate 19 Blood Pressure 139/88 Pulse Oximetry 99 Oxygen Delivery Method Room Air Oxygen Flow Rate 0 Narrative Exam Narrative: Gen.: Patient alert very hard of hearing. HEENT: Pupils equal round and reactive or mucosa is moist Cardio: S1-S2 systolic murmur appreciated Respiratory: Normal respiratory effort scant crackles at lung bases Abdomen: Obese nontender Extremities: Moderate amount of lower extremity edema with redness and cellulitic changes more prominent on the left foot than right. Impressive bullae on left foot. Objective Labs Result Diagrams: 10/10/22 11:34 10/10/22 11:34 Labs: Laboratory Results - last 24 hr 10/10/22 10/10/22 10/10/22 11:34 11:34 11:34 WBC 11.1 H RBC 3.15 L Hgb 9.8 L Hct 29.7 L MCV 94.3 MCH 31.2 MCHC 33.1 RDW 14.5 Plt Count 199 Neut % (Auto) 79.0 H Lymph % (Auto) 13.7 L Hitchcock % (Auto) 5.4 Eos % (Auto) 1.3 L Baso % (Auto) 0.6 Neut # (Auto) 8800 H Lymph # (Auto) 1500 Hitchcock # (Auto) 600 Eos # (Auto) 100 Baso # (Auto) 100 ESR 67 H PT 18.8 H D INR 1.6 H APTT Sodium 134 L Potassium 4.5 Chloride 97 L Carbon Dioxide 29 BUN 19 Creatinine 1.53 H Estimated GFR 47 L BUN/Creatinine Ratio 12.4 Glucose 102 Lactate Calcium 9.2 Total Bilirubin 1.0 AST 39 ALT 58 H Alkaline Phosphatase 169 H Total Creatine Kinase 45 L CK-MB (CK-2) TNP CK-MB (CK-2) Rel Index TNP Troponin I < 0.012 C-Reactive Protein 4.7 H NT-Pro-B Natriuret Pep 3430 H Total Protein 6.9 Albumin 3.4 L Globulin 3.5 Albumin/Globulin Ratio 1.0 Procalcitonin 0.06 Urine Color Urine Appearance Urine pH Ur Specific Campbell Urine Protein Urine Glucose (UA) Urine Ketones Urine Occult Blood Urine Nitrate Urine Bilirubin Urine Urobilinogen Ur Leukocyte Esterase Urine RBC Urine WBC Urine Bacteria Ur Culture Indicated? SARS-CoV-2 (PCR) 10/10/22 10/10/22 10/10/22 11:34 11:34 11:56 WBC RBC Hgb Hct MCV MCH MCHC RDW Plt Count Neut % (Auto) Lymph % (Auto) Hitchcock % (Auto) Eos % (Auto) Baso % (Auto) Neut # (Auto) Lymph # (Auto) Hitchcock # (Auto) Eos # (Auto) Baso # (Auto) ESR PT INR APTT 39 H Sodium Potassium Chloride Carbon Dioxide BUN Creatinine Estimated GFR BUN/Creatinine Ratio Glucose Lactate 1.1 Calcium Total Bilirubin AST ALT Alkaline Phosphatase Total Creatine Kinase CK-MB (CK-2) CK-MB (CK-2) Rel Index Troponin I C-Reactive Protein NT-Pro-B Natriuret Pep Total Protein Albumin Globulin Albumin/Globulin Ratio Procalcitonin Urine Color Urine Appearance Urine pH Ur Specific Campbell Urine Protein Urine Glucose (UA) Urine Ketones Urine Occult Blood Urine Nitrate Urine Bilirubin Urine Urobilinogen Ur Leukocyte Esterase Urine RBC Urine WBC Urine Bacteria Ur Culture Indicated? SARS-CoV-2 (PCR) Negative 10/10/22 10/10/22 16:12 17:25 WBC RBC Hgb Hct MCV MCH MCHC RDW Plt Count Neut % (Auto) Lymph % (Auto) Hitchcock % (Auto) Eos % (Auto) Baso % (Auto) Neut # (Auto) Lymph # (Auto) Hitchcock # (Auto) Eos # (Auto) Baso # (Auto) ESR PT 18.9 H INR 1.6 H APTT Sodium Potassium Chloride Carbon Dioxide BUN Creatinine Estimated GFR BUN/Creatinine Ratio Glucose Lactate Calcium Total Bilirubin AST ALT Alkaline Phosphatase Total Creatine Kinase CK-MB (CK-2) CK-MB (CK-2) Rel Index Troponin I C-Reactive Protein NT-Pro-B Natriuret Pep Total Protein Albumin Globulin Albumin/Globulin Ratio Procalcitonin Urine Color Yellow Urine Appearance Clear Urine pH 5.0 Ur Specific Campbell 1.015 Urine Protein Negative Urine Glucose (UA) Negative Urine Ketones Negative Urine Occult Blood Negative Urine Nitrate Negative Urine Bilirubin Negative Urine Urobilinogen 0.2 Ur Leukocyte Esterase Negative Urine RBC None seen Urine WBC None seen Urine Bacteria None seen Ur Culture Indicated? Cult not indicated SARS-CoV-2 (PCR) [facility] Medical History Alcohol abuse Congestive heart failure Depression Esophageal ulceration Essential hypertension GERD (gastroesophageal reflux disease) Hypothyroidism Mixed hyperlipidemia Venous stasis Surgical History Status post appendectomy Family History Other Congestive heart failure Social History household members: spouse Smoking Status: Never smoker alcohol intake: never Assessment & Plan Assessment and plan (1) Congestive heart failure: Status: Acute (2) Transaminitis: Status: Acute Plan Lower extremity blisters and bullae quite impressive do most likely due to fluid overload. Wound consultation appreciated. Continue with IV antibiotics monitor white blood cell count and work with significant diuresis. Cellulitis patient with lower extremity cellulitis to do his bullae blister continue with vancomycin and ceftriaxone monitor white blood cell count and temperature. Acute systolic heart failure. This is contributing to his lower extremity edema elevated BNP previous ejection fraction shows 30%. We will work with IV Lasix for diuresis to help control congestive heart failure but help improve fluid balance to help reduce lower extremity edema Atrial fibrillation continue with metoprolol and is currently off his anticoagulation because it was supratherapeutic as an outpatient. Will monitor his INR and restart at appropriate time Chronic kidney disease stage IIIB. Monitor closely kidney function as we diurese him Transaminitis chronic and stable. Previous ultrasound showed no significant intra-abdominal lesion. Wonderful due to congestion of his liver due to his underlying heart failure. Will need additional workup. BPH with history obstruction. Monitor in's and oz we diurese. DVT prophylaxis on anticoagulation Hypothyroidism chronic and stable Disposition and plan continue with diuresis and antibiotics Time Spent With Patient Critical Care time: I spent a total of [] minutes of critical care time on this patient's care today; this time is exclusive of procedural time. Quality VTE Deep Vein Thrombosis/Pulmonary Embolism Present on Admission: No
[2022-10-11] MEDS: POTASSIUM CHLORIDE 20 MEQ TAB 40 MEQ PO (09:00)
[2022-10-11] MEDS: DOCUSATE 100 MG CAPSULE PO ×2 (09:00→21:08)
[2022-10-11] MEDS: MAGNESIUM OXIDE 400 MG TABLET PO (09:00)
[2022-10-11] MEDS: PANTOPRAZOLE DR 40 MG TABLET PO (09:01)
[2022-10-11] MEDS: TAMSULOSIN 0.4 MG CAPSULE 0.8 MG PO (09:01)
[2022-10-11] MEDS: METOPROLOL ER 50 MG TABLET 25 MG PO ×2 (09:01→21:08)
[2022-10-11] MEDS: FUROSEMIDE 40 MG/4 ML VIAL IV ×2 (09:06→17:36)
--- NOTE | 2022-10-11 13:16 | CM.DANOTE ---
Case received, EMR reviewed and met with patient. Introduced self and role. Was able to obtain some information regarding patient's baseline activity status at home prior to hospitalization. DCP assessment completed with information currently available. Patient is a 77 year old male who admitted yesterday afternoon to the care of the hospitalist team. PCP: Dr. Hoover. Payer: confirmed: [employer]age. Patient came to the hospital via ambulance secondary to having worsening lower extremity blisters. Patient indicated, his right lower extremity blister showed up overnight. Patient has chronic blisters on his legs, his knees were wrapped in Kerlix where blisters used to be. EMS noted poor living conditions. Patient had CXR, was noted to have CHF, cellulitis. Notes indicate that patient had been to wound clinic in 2019. Patient notes bullae on left foot, and moderate lower extremity edema with redness. Provider had mentioned blisters and bullae most likely due to fluid overload. Wound consult has been ordered. Met with patient in his room. He was sitting up in bed having breakfast, lower extremity exposed with bullae to anterior left foot, right, noted some blisters that had popped. Patient is hard of hearing, has a hearing device that he speaks into. Confirmed ththe resides here in [place] with spouse, Avani. He no longer drives, due to decrease in vision, and uses a walker. He sleeps in his recliner. Asked him if he had had home healths services before, did not know. P: DCP to continue to follow closely. Patient will need home health services, will need nursing to come in and do wound assessment and teaching. He should be having wound consult here at the hospital, by wound care provider. He does not currently have P.T. orders, may follow up with provider to see if this would be appropriate. Can start face to face with home health, agency to be determined. Brandie Box RN/Telephone Supervisor Discharge Planning/Care Management CM Discharge Assessment Start: 10/11/22 13:13 Freq: Status: Active Protocol: Document 10/11/22 13:14 (Rec: 10/11/22 13:16 [id number]) Discharge Planning Assessment Assigned Air Hole Driller Brandie Box RN/Telephone Supervisor Advance Directives? Yes: POLST Advance Directives on File Yes History Provided By Patient,Significant Other, Medical Record Prior Living Arrangements House Household Members spouse Type of transporation used prior to Relies on Others admit Independent with ADL's Yes Is patient alert and oriented? Yes: Hard of hearing, has hearing device Needs Assistance With Meal Prep,Home Chores / Shopping Caregiver for Another No DME Already Rented / Owned FWW / Walker Comment Patient uses a walker, lives in a trailer Patient/Family Preference Home with Home Health Comment . Comment Patient indicated that he does live spouse, son next door. Discharge Plan Home with Home Health Transportation Arrangement Family Additional Comment Have not yet initiated referral Whiteboard Updated in Patient Room with Yes name and ext. # of Air Hole Driller Review Status In Process Next Review Type Continued Stay Review
[2022-10-11] MEDS: cefTRIAXone 1,000 MG in SODIUM CHLORIDE 0.9% 100 ML 200 MG IV (13:29)
[2022-10-11] MEDS: VANCOMYCIN 1,500 MG/300 ML PIGGYBACK 200 MG IV (15:09)
[2022-10-11] MEDS: MELATONIN 3 MG TABLET PO (21:08)
[2022-10-12] MEDS: FUROSEMIDE 40 MG/4 ML VIAL IV ×3 (00:42→17:48)
[2022-10-12 05:00] VITALS: BP 116/78; PULSE 82; RESP 19; TEMP 36.3; O2SAT 98
[2022-10-12 05:09] LABS: Add Manual Diff / Slide Review NO; Basophils Absolute Auto 100 /uL (0-100); Basophils Percent Auto 1.2 % (0-2); Eosinophils Absolute Auto 200 /uL (0-450); Eosinophils Percent Auto 2.2 % (2-4); Hematocrit 27.6 % (41-53); Hemoglobin 9.4 g/dL (13.5-17.5); Lymphocytes Absolute Auto 1700 /uL (1100-4500); Lymphocytes Percent Auto 19.9 % (25-40); Mean Corpuscular HGB Conc 34.1 % (30-36); Mean Corpuscular Hemoglobin 31.7 PG (26-34); Mean Corpuscular Volume 92.9 fL (80-100); Monocytes Absolute Auto 600 /uL (0-900); Monocytes Percent Auto 7.7 % (3-14); Neutrophils Absolute Auto 5800 /uL (1500-7000); Platelet Count 177 X10^3/uL (150-400); Red Blood Cell Count 2.97 X10^6/uL (4.5-5.9); Red Cell Distribution Width 14.9 % (11.6-14.8); White Blood Cell Count 8.4 X10^3/uL (4.5-11.0)
[2022-10-12 05:10] LABS: INR 1.5 (0.9-1.3); Prothrombin Time 17.8 SECONDS (10.1-12.7)
[2022-10-12 05:39] LABS: Alanine Aminotransferase 41 IU/L (<50); Alkaline Phosphatase 133 U/L (38-126); Aspartate Aminotransferase 33 IU/L (17-59); BUN Creatinine Ratio 11.8 (6-22); Bilirubin Total 0.7 mg/dL (0.2-1.3); Blood Urea Nitrogen 19 mg/dL (9-20); Calcium 8.9 mg/dL (8.4-10.2); Carbon Dioxide 27 mmol/L (22-32); Chloride 97 mmol/L (98-107); Estimated Glomerular Filt Rate 44 mL/min (>60); Glucose 100 mg/dL (80-110); HEMOLYSIS < 15 (0-50); Potassium 3.2 mmol/L (3.4-5.1); Sodium 135 mmol/L (137-145); Total Protein 6.3 g/dL (6.3-8.2)
[2022-10-12 05:43] LABS: NT-proBNP (BNP-Adult 18+) 5070 pg/mL (<450)
--- NOTE | 2022-10-12 06:28 | P.PN_ITS ---
Subjective Subjective Date Patient Seen: 10/12/22 Time Patient Seen: 06:28 Interval history: Patient seen and evaluated this morning chart was reviewed. Vital signs been stable overnight. Patient hard of hearing. Edema in his legs look better. Still some redness and bullae. Some of them have decreased in size and popped. Not complaining of too much pain. Still wanting to get out of bed. Physical therapy evaluation today. Exam Vital Signs (past 8 hours): - 10/11/22 23:23 10/12/22 05:00 Temperature 97.3 F L Pulse Rate 84 82 Respiratory Rate 19 Blood Pressure 124/72 116/78 Pulse Oximetry 98 Oxygen Delivery Method Room Air Oxygen Flow Rate 0 Narrative Exam Narrative: Gen.: Alert hard of hearing HEENT: Pupils equal round and reactive or mucosa is moist Cardio: Regular rate and rhythm with systolic murmur Respiratory: Normal respiratory effort lungs are clear Abdomen: Obese soft nontender Extremities: 2+ edema up to knees. Some set cellulitis or redness to his left leg with bullae. Improved from yesterday Objective Labs Result Diagrams: 10/12/22 04:47 10/12/22 04:47 Labs: Laboratory Results - last 24 hr 10/12/22 10/12/22 10/12/22 04:47 04:47 04:47 WBC 8.4 RBC 2.97 L Hgb 9.4 L Hct 27.6 L MCV 92.9 MCH 31.7 MCHC 34.1 RDW 14.9 H Plt Count 177 Neut % (Auto) 69.0 Lymph % (Auto) 19.9 L [place] % (Auto) 7.7 Eos % (Auto) 2.2 Baso % (Auto) 1.2 Neut # (Auto) 5800 Lymph # (Auto) 1700 [place] # (Auto) 600 Eos # (Auto) 200 Baso # (Auto) 100 PT 17.8 H INR 1.5 H Sodium 135 L Potassium 3.2 L D Chloride 97 L Carbon Dioxide 27 BUN 19 Creatinine 1.61 H Estimated GFR 44 L BUN/Creatinine Ratio 11.8 Glucose 100 Calcium 8.9 Total Bilirubin 0.7 AST 33 ALT 41 Alkaline Phosphatase 133 H NT-Pro-B Natriuret Pep 5070 H Total Protein 6.3 PFSH Medical History Alcohol abuse Congestive heart failure Depression Esophageal ulceration Essential hypertension GERD (gastroesophageal reflux disease) Hypothyroidism Mixed hyperlipidemia Venous stasis Surgical History Status post appendectomy Family History Other Congestive heart failure Social History household members: spouse Smoking Status: Never smoker alcohol intake: never Assessment & Plan Assessment and plan (1) Congestive heart failure: Status: Acute Plan Lower extremity blisters and bullae quite impressive do most likely due to fluid overload.? Continue with diuresis today potassium is a little bit low Lasix IV 40 mg. Continue with elevation of feet and legs to help improve edema. Wound consultation appreciated. Cellulitis patient with lower extremity cellulitis to do his bullae blister continue with vancomycin and ceftriaxone monitor white blood cell count stable afebrile. Acute systolic heart failure.? This is contributing to his lower extremity edema elevated BNP previous ejection fraction shows 30%.? BNP quite elevated. Continue with Lasix today. He is on digoxin metoprolol he is not on an LAWRENCE inhibitor possibly due to his kidney function. Atrial fibrillation continue with metoprolol and is currently off his anticoagulation because it was supratherapeutic as an outpatient.? Heart rate well controlled with beta-irlanda and digoxin. INR 1.5 started on warfarin 5 mg yesterday we will continue with 5 mg today and monitor his INR. Chronic kidney disease stage IIIB.? Kidney function slightly worsened today I presumed due to diuresis will continue with diuresis today and recheck tomorrow. Hypokalemia. On oral potassium increase oral potassium dose and continue with the that at a K rider in today. Transaminitis chronic and stable.? Previous ultrasound showed no significant intra-abdominal lesion.? Question whether this is due to underlying congestive heart failure. BPH with history obstruction. No signs of his obstruction at this point.? DVT prophylaxis on anticoagulation Hypothyroidism chronic and stable Disposition and plan continue with diuresis and antibiotics PT evaluation today. Time Spent With Patient Critical Care time: I spent a total of [] minutes of critical care time on this patient's care today; this time is exclusive of procedural time. Quality VTE Deep Vein Thrombosis/Pulmonary Embolism Present on Admission: No
[2022-10-12] MEDS: HYDROCODONE/ACET 5/325 TABLET 1 TAB PO ×2 (06:49→10:54)
[2022-10-12] MEDS: LEVOTHYROXINE 137 MCG TABLET PO (06:49)
[2022-10-12] MEDS: POTASSIUM CHLORIDE IN WATER 10 MEQ/100 ML PIGGYBACK 100 MEQ IV (06:50)
[2022-10-12 08:26] VITALS: BP 126/67; PULSE 64; RESP 23; TEMP 36.5; O2SAT 98
[2022-10-12] MEDS: POTASSIUM CHLORIDE 20 MEQ/15 ML UDC 40 MEQ PO ×2 (10:01→17:46)
[2022-10-12] MEDS: MAGNESIUM OXIDE 400 MG TABLET PO (10:02)
[2022-10-12] MEDS: PANTOPRAZOLE DR 40 MG TABLET PO (10:02)
[2022-10-12] MEDS: METOPROLOL ER 50 MG TABLET 25 MG PO (10:02)
[2022-10-12] MEDS: TAMSULOSIN 0.4 MG CAPSULE 0.8 MG PO (10:03)
[2022-10-12] MEDS: DOCUSATE 100 MG CAPSULE PO ×2 (10:03→22:02)
--- NOTE | 2022-10-12 10:42 | PT.IIE ---
Current Diagnoses Heart failure, unspecified (10/10/22) Other skin changes (10/10/22) Elevation of levels of liver transaminase levels (10/10/22) Surgical History (Last Reviewed 10/10/22 @ 15:09 by Latesha Khoury DO) Status post appendectomy Medical History (Last Reviewed 10/10/22 @ 15:09 by Latesha Khoury DO) Alcohol abuse Congestive heart failure Depression Esophageal ulceration Essential hypertension GERD (gastroesophageal reflux disease) Hypothyroidism Mixed hyperlipidemia Venous stasis Physical Therapy Inpatient Evaluation/Re-Eval M1 PT/OT-IP Prior Functional Status Start: 10/12/22 09:03 Freq: NEEDED Status: Active Protocol: Document 10/12/22 10:42 AW (Rec: 10/12/22 11:13 AW [id number]) Medical Review Prior Functional Status Medical History Reviewed Yes Communication Pt is able to make his needs known. He is [place] and uses an amplication device worn around his neck. Mobility and Gait Pt states he uses anchor points to assist with ambulation in his trailer. He uses a 4WW outside. He struggles with his balance but denies falls in the past six months. Activities of Daily Living and IADL's Pt states he wears minimal clothes but is able to dress himself. He showers with some assist. His spouse does all shopping and helps with other IADL's Social History Household Members spouse Living Arrangements Mobile home Number of Floors (Floors) One Floor Number of Stairs To Enter/Railing? Pt has ramped entry to 40'x8' trailer. Home Environment Standard Height Toilet,Tub/ Shower,Ramp Home Equipment Four Wheel Walker,Shower Seat without Backrest,Hand Held Shower,Grab Bars In Shower Additional Social History Comment Pt lives with his spouse, Avani, who works four days per week and will not be able to help much. They live on the same property as pt's 40 yo son but the son does not provide much assist. Pt states his anti-gravity chair broke and he now sleeps in an office chair with a footrest. M2 PT-IP Current Condition Start: 10/12/22 09:03 Freq: NEEDED Status: Active Protocol: Document 10/12/22 10:42 AW (Rec: 10/12/22 11:13 AW [id number]) Physical Therapy Current Condition Current Condition Evaluation Date 10/12/22 Treatment Diagnosis BLE edema, cellulitis, CHF exacerbation, difficulty in walking Onset Date 10/10/22 M3 PT-IP Subjective Start: 10/12/22 09:03 Freq: NEEDED Status: Active Protocol: Document 10/12/22 10:42 AW (Rec: 10/12/22 11:13 AW [id number]) Subjective Physical Therapy Visit Type Type Initial Evaluation Visit Start Time 10:15 Visit Stop Time 10:42 Total Visit Minutes 27 Physical Therapy Visit Comments Patient Comments Pt is willing to participate with PT Patient Goals Return home Therapy Pain Assessment Pain When Pain Assessed During Mobility Pain Present Pain Present Pain Reported Location Bilateral Lower Leg Scale Used not quantified M4 PT-IP Mobility and Gait Start: 10/12/22 09:03 Freq: NEEDED Status: Active Protocol: Document 10/12/22 10:42 AW (Rec: 10/12/22 11:13 AW [id number]) PT-Bed Mobility Assessment Supine to Sit Supine to Sit Moderate Assistance,1 Person Assistance,Head of Bed Elevated,Bedrails Sit to Supine Sit to Supine Contact Guard Assistance PT-Transfer Assessment Sit to and From Stand Sit to and from Stand Contact Guard Assistance,1 Person Assistance,Use of Upper Extremities Equipment Transfer Assistive Device Gait Belt,Front Wheeled Walker Orthotic/Prosthetic Devices or Brace: No Transfers Transfer Destination Chair Transfer Technique Stand Step Pivot Transfer Ability Level of Assist Minimal Assistance,1 Person Assistance,Use of Upper Extremities Comments Mobility Comments Pt was lying in bed as PT arrived. He does not sleep in a bed at home. He needed mod A to complete supine to sit with special care taken to prevent rupture of bullae on dorsal aspect of left foot. He stood CGA and used FWW to steady himself. He needed assist with urinal to void. Serous fluid was noted coursing down LLE from scattered wounds. PT placed towels on the floor between bed and chair and pt used FWW to transfer min A. He was able to reposition himself on the chair. Pt was left with legs elevated on multiple pillows and REMOTE SENSING SCIENTIST attending. Gait Assessment Gait Gait Assistance Required: Contact Guard Assist Distance (Feet) 5 Assistive Devices Assistive Device Gait Belt,Front Wheeled Walker Orthotic/Prosthetic Devices or Brace: No Gait Deviations General Gait Pattern Antalgic,Flexed Trunk,Wide Based Gait Factors Limiting Gait Function Factors Limiting Gait Function Decreased Strength,Pain,Poor Balance,Poor Safety Awareness Comments Gait Comments Steps taken during transfer only. Gait was limited in order to limit skin breakdown. Stair Climbing Assessment Comments Stair Climbing Comments Not assessed. No stairs at home. PT-Balance Assessment Sitting Balance and Reactions Static Sitting Balance Ability Good Dynamic Sitting Balance Ability Good Standing Balance and Reactions Static Standing Balance Ability Fair Dynamic Standing Balance Ability Fair Device Used FWW M5 PT-IP Objective Assessments Start: 10/12/22 09:03 Freq: NEEDED Status: Active Protocol: Document 10/12/22 10:42 AW (Rec: 10/12/22 11:13 AW [id number]) Orientation Orientation/Cognition Level of Alertness Alert Orientation Name,Day of Week,Place, Situation Language Function Ability Hard of Hearing Safety Awareness Decreased Safety Awareness Comments Pt states he has R eye vision loss Gross Range of Motion Lower Extremity ROM Assessment Bilaterally Impaired Impairments Pt lacking dorsiflexion just to neutral bilaterally Strength Lower Extremity Strength Assessment Bilaterally Impaired Hip 4-/5 Comments Strength Comments Challenging to assess distal to hip due to care needed to avoid skin shear. Muscle Tone Muscle Tone WNL Yes Other Assessments Other Other Assessments Pt has impressive bullae on bilateral feet. His wounds are quite weepy and occasionally serous fluid runs down his leg and foot. M6 PT-IP Treatment Start: 10/12/22 09:03 Freq: NEEDED Status: Active Protocol: Document 10/12/22 10:42 AW (Rec: 10/12/22 11:13 AW [id number]) Physical Therapy Treatment Education Education Provided Safety M7 PT-IP Assessment and Plan Start: 10/12/22 09:03 Freq: NEEDED Status: Active Protocol: Document 10/12/22 10:42 AW (Rec: 10/12/22 11:13 AW [id number]) PT Summary Assessment and Plan Potential Rehabilitation Potential Fair Status of Condition at Evaluation Evolving Summary Impairments Pain,ROM,Strength,Balance,Bed Mobility,Transfers,Gait, Activity Tolerance Assessment Summary Jay is a 77 yo man admitted with CHF exacerbation, BLE edema , and wounds/bullae on BLE. PLOF: Pt is modified independent using anchor points to move around his trailer and a 4WW outside. He sleeps in a chair with his legs elevated. CLOF: Pt requiring mod A with bed mobility and min A for transfers with FWW. Pt may be near his functional baseline but he has very limited assist at home. He would certainly benefit from HH therapies to improve his strength and mobility independence and to assist with mangement of his chronic conditions. Will continue to assess as pt progresses. Goals Bed Mobility Goal Contact Guard Assistance Transfer Goal Standby Assistance,Four Wheeled Walker Gait Goal Standby Assistance,Four Wheel Walker Gait Distance 50 Other Goals - improve gait to 150' with 4WW SBA Days to Meet Goals 5 Frequency of Treatment Frequency Of Treatment Once a Day Treatment Plan Physical Therapy Treatment Plan Bed Mobility Training,Transfer Training,Gait Training, Therapeutic Exercise,Balance Retraining,Discharge Planning, Hot or Cold Pack Other Recommendations and Next Treatment transfers with 4WW; assess Focus gait with 4WW Precautions Other Precautions avoid skin shear, protect wounds; falls risk Recommendations To Nursing Amount of Assist Needed 1 Person Assist Discharge Recommendations PT Discharge Recommendations Home with Assistance,Home Health,Home vs SNF Transportation Needs at Discharge Private Vehicle,Wheelchair/ Cabulance
--- NOTE | 2022-10-12 11:28 | PC.NURSE ---
Addendum entered by Neelam Oliveira R.N. 10/12/22 16:26: Patient is awake and visiting with his and two other woman friends. He slept for a bit and his iv antibiotics have been infused. Happy to see his . Addendum entered by Neelam Oliveira R.N. 10/12/22 14:56: Patient is not as anxious as he was this morning, he has slowed down on his call tyler this afternoon and is napping. He was up in the chair for a couple of hours today, and worked with physical therapy. His iv antibiotics are infusing now and he is sleeping. Original Note: Patient is on his light alot about little things, explained to patient that it is helpful to staff if he can let us know everything that he wants when we are in the room, and he was agreeable to this. Just given vicodin for discomfort. Patient up with pt and aide to the chair. He was given a bed bath and is now resting. Appetite is good. Patient has multiple skin issues, intact large blister to l.foot, several open blisters to shins and feet. This is all written under skin assessment in chart. Patient is hard of hearing, he is sob at times, just given iv lasix and lung sounds are diminished in the bases. He is napping now and has the tv on.
[2022-10-12 12:00] VITALS: BP 131/65; PULSE 65; RESP 24; TEMP 36.9; O2SAT 94
--- NOTE | 2022-10-12 13:41 | CM.DPC ---
Addendum entered by Brandie Box R.N. 10/12/22 15:46: Spoke to patient's spouse, Mrs. Reed. Confirmed that patient had [facility] and discharged in July. Her and family are working on getting patient a new recliner. She has been helping with compression for patient. She indicated, the main reason that we brought him in was because of the blister. She asked if patient would be discharged tomorrow, let her know he could be, but will update her. [facility] will just need orders and DC Summary upon discharge. Addendum entered by Brandie Box R.N. 10/12/22 14:47: Since this DC Teacher Private can't get in touch with , and patient is not familiar with home health agencies, calendar this week is [facility]. Called [facility] and spoke to Ruth, and confirmed, they do accept [employer]. Let her know patient's name, and that referral will be faxed over. Faxing over face sheet, face to face, H&P, P.T. notes. Patient will need nursing for wound assessment and care, but will add P.T, O.T, and ASSISTANT FOREMAN, as EMS stated concerns about living conditions. Patient most likely will refuse bath aide, but O.T, can assess shower, and safety with hygiene in the home. Original Note: DCP Cont: Patient gave permission to contact spouse, Avani, for any questions. Attempted to reach out to spouse, but her phone is not working. Will attempt later today again. Wanted to discuss home health options. Patient did work with P.T. today. P: DCP to continue to follow. At this time, home health, agency is pending, but patient has [employer], will need to see which facility takes the insurance. Brandie Box RN/Licensed Customs Broker
[2022-10-12] MEDS: cefTRIAXone 1,000 MG in SODIUM CHLORIDE 0.9% 100 ML 200 MG IV (14:04)
[2022-10-12] MEDS: VANCOMYCIN 1,500 MG/300 ML PIGGYBACK 200 MG IV (14:44)
[2022-10-12 16:00] VITALS: BP 111/78; PULSE 62; RESP 23; TEMP 36.1; O2SAT 99
[2022-10-12 18:01] VITALS: PULSE 62
[2022-10-12] MEDS: DIGOXIN 0.125 MG TABLET PO (18:01)
[2022-10-12 20:00] VITALS: BP 128/47; PULSE 48; RESP 21; TEMP 36.6; O2SAT 97
[2022-10-12] MEDS: MELATONIN 3 MG TABLET PO (22:01)
[2022-10-13] VITALS (7 sets, daily range): BP systolic 102–134; BP diastolic 55–72; PULSE 46–77; RESP 17–23; TEMP 36.2–36.8; O2SAT 96–100
[2022-10-13] MEDS: FUROSEMIDE 40 MG/4 ML VIAL IV (01:24)
[2022-10-13] MEDS: HYDROCODONE/ACET 5/325 TABLET 1 TAB PO ×3 (01:24→22:14)
[2022-10-13] MEDS: SODIUM CHLORIDE 0.9% FLUSH 10 ML IV ×2 (01:25→21:59)
[2022-10-13 04:31] LABS: INR 1.6 (0.9-1.3)
[2022-10-13 04:38] LABS: Alanine Aminotransferase 37 IU/L (<50); Alkaline Phosphatase 125 U/L (38-126); Aspartate Aminotransferase 31 IU/L (17-59); BUN Creatinine Ratio 13.9 (6-22); Bilirubin Total 0.6 mg/dL (0.2-1.3); Blood Urea Nitrogen 20 mg/dL (9-20); Calcium 8.8 mg/dL (8.4-10.2); Carbon Dioxide 30 mmol/L (22-32); Chloride 96 mmol/L (98-107); Estimated Glomerular Filt Rate 50 mL/min (>60); Glucose 133 mg/dL (80-110); HEMOLYSIS < 15 (0-50); Potassium 3.3 mmol/L (3.4-5.1); Sodium 134 mmol/L (137-145); Total Protein 6.4 g/dL (6.3-8.2)
[2022-10-13 04:44] LABS: Add Manual Diff / Slide Review NO; Basophils Absolute Auto 100 /uL (0-100); Basophils Percent Auto 0.7 % (0-2); Eosinophils Absolute Auto 200 /uL (0-450); Hematocrit 28.6 % (41-53); Hemoglobin 9.6 g/dL (13.5-17.5); Lymphocytes Absolute Auto 1300 /uL (1100-4500); Lymphocytes Percent Auto 14.5 % (25-40); Mean Corpuscular HGB Conc 33.7 % (30-36); Mean Corpuscular Hemoglobin 31.2 PG (26-34); Mean Corpuscular Volume 92.6 fL (80-100); Monocytes Absolute Auto 800 /uL (0-900); Monocytes Percent Auto 9.4 % (3-14); Neutrophils Absolute Auto 6400 /uL (1500-7000); Neutrophils Percent Auto 73.4 % (50-75); Platelet Count 168 X10^3/uL (150-400); Red Blood Cell Count 3.09 X10^6/uL (4.5-5.9); Red Cell Distribution Width 14.8 % (11.6-14.8); White Blood Cell Count 8.7 X10^3/uL (4.5-11.0)
[2022-10-13] MEDS: LEVOTHYROXINE 137 MCG TABLET PO (05:42)
--- NOTE | 2022-10-13 08:30 | PM.PN.1 ---
Exam Vital Signs (past 8 hours): - 10/13/22 03:35 Temperature 97.8 F Pulse Rate 53 L Respiratory Rate 20 Blood Pressure 114/60 Pulse Oximetry 96 Oxygen Flow Rate 0 Oxygen Delivery Method Room Air Oxygen Flow Rate 0 Objective Labs Result Diagrams: 10/13/22 04:08 10/13/22 04:08 Labs: Laboratory Results - last 24 hr 10/13/22 10/13/22 10/13/22 04:08 04:08 04:08 WBC 8.7 RBC 3.09 L Hgb 9.6 L Hct 28.6 L MCV 92.6 MCH 31.2 MCHC 33.7 RDW 14.8 Plt Count 168 Neut % (Auto) 73.4 Lymph % (Auto) 14.5 L [place] % (Auto) 9.4 Eos % (Auto) 2.0 Baso % (Auto) 0.7 Neut # (Auto) 6400 Lymph # (Auto) 1300 [place] # (Auto) 800 Eos # (Auto) 200 Baso # (Auto) 100 PT 18.0 H INR 1.6 H Sodium 134 L Potassium 3.3 L Chloride 96 L Carbon Dioxide 30 BUN 20 Creatinine 1.44 H Estimated GFR 50 L BUN/Creatinine Ratio 13.9 Glucose 133 H Calcium 8.8 Total Bilirubin 0.6 AST 31 ALT 37 Alkaline Phosphatase 125 Total Protein 6.4 PFSH Medical History Alcohol abuse Congestive heart failure Depression Esophageal ulceration Essential hypertension GERD (gastroesophageal reflux disease) Hypothyroidism Mixed hyperlipidemia Venous stasis Surgical History Status post appendectomy Family History Other Congestive heart failure Social History household members: spouse Smoking Status: Never smoker alcohol intake: never Assessment & Plan Assessment & Plan narrative: Congestive heart failure. Patient seems to be much cork cutter. Probably at baseline. Will go to 40 mg once a day p.o. Lasix and re-evaluate. Have attempted to consult Cardiology multiple times but patient is not responding to phone calls. Will see if we can get set up as an outpatient Lower leg ulcers and blisters. Certainly did not appear to be infected. Need wound care. Patient has had wound care in the past. Have done well with his dressings. Will consult today. Probably needs drained on the left foot. Hopefully wound Care will see and address appropriate approach. Patient has pretty extensive blisters over feet leg and behind his knees. None appear infected at this time. Cellulitis. Much improved. Switch to p.o. Ceftin follow from there. Hypokalemia. Still present. Will go to t.i.d. on his potassium and re-evaluate tomorrow. If not improved will give IV more aggressively Peripheral edema. Much improved. Probably at baseline. Probably is but did as it actually gets. He has minimal findings today. Will continue to diurese but much lower and p.o.. Renal failure. At baseline. Seems to be stable. Will follow. Atrial fibrillation. Rate controlled. Will follow. No other change. Restart Coumadin. Disposition. Will follow. Hope discharge by Thursday. Depending on wound care. 40 minutes spent seeing patient dictating orders check out and discussion with nursing care Time Spent With Patient Critical Care time: I spent a total of [] minutes of critical care time on this patient's care today; this time is exclusive of procedural time. Quality VTE Deep Vein Thrombosis/Pulmonary Embolism Present on Admission: No
[2022-10-13] MEDS: POTASSIUM CHLORIDE 20 MEQ/15 ML UDC 40 MEQ PO ×3 (09:19→21:57)
[2022-10-13] MEDS: DOCUSATE 100 MG CAPSULE PO ×2 (09:19→21:57)
[2022-10-13] MEDS: MAGNESIUM OXIDE 400 MG TABLET PO (09:19)
[2022-10-13] MEDS: TAMSULOSIN 0.4 MG CAPSULE 0.8 MG PO (09:19)
[2022-10-13] MEDS: PANTOPRAZOLE DR 40 MG TABLET PO (09:19)
[2022-10-13] MEDS: METOPROLOL ER 50 MG TABLET 25 MG PO ×2 (09:19→22:04)
[2022-10-13] MEDS: cefUROXime 250 MG TABLET 500 MG PO (09:19)
[2022-10-13] MEDS: FUROSEMIDE 40 MG TABLET PO (09:20)
--- NOTE | 2022-10-13 09:44 | PC.NURSE ---
Addendum entered by Neelam Oliveira R.N. 10/13/22 18:17: Wrapped patients wounds and open blisters to shins with silvadene cream and kurlex. Patient just given a vicodin and helpful for discomfort. He is resting comfortably now and denies pain. Addendum entered by Neelam Oliveira R.N. 10/13/22 12:40: Wound Doctor down to see patient and states that we are going to start silvadene cream and wrap both legs with kurlex. He states that he will write the orders in the chart. Original Note: Assess- Patient denies pain this morning, he has taken his medications without any problems and ate about 95% of his breakfast. Patient has multiple skin issues that can be seen under skin assessment in chart. L.foot has a large intact blister that is fluid filled, and r.foot has some blisters that have popped. Patient smells of garlic, he states that he eats raw garlic 4 times a day. That this helps with infection, and the flu. He is a one to two person assist to get up in the chair. Legs are elvated in bed now on pillows and chux pads, as he does have some drainage from legs and feet wheeping. Resting now.
--- NOTE | 2022-10-13 12:50 | P.CONS_ITS ---
History of Present Illness Consult details Date Patient Seen: 10/13/22 Time Patient Seen: 12:50 Chief complaint: Lower extremity swelling Narrative: The patient is a 77-year-old male with congestive heart failure and hypertension who developed blisters on both lower extremities after his lower extremity edema worsened. The blister on his right foot spontaneously drained and he has been left with several dry eschars. Swelling has improved since admission after diuresis. He reports some mild discomfort in his right foot. He denies having any fever or chills. The patient was previously been seen at the wound center December 2018 for the same problem. Previous workup showed only mild reflux in the deep venous system. Ulcers tend to recur when his weight is above 240 lb. The patient does not routinely wear compression. Meds Home Medications and Allergies Home Medications Medication Instructions Recorded Confirmed Type pantoprazole 40 mg tablet,delayed 40 mg PO DAILY #30 tabs 03/03/21 10/10/22 Rx release pravastatin 20 mg tablet 40 mg PO BEDTIME #30 tabs 03/03/21 10/10/22 Rx tamsulosin 0.4 mg capsule (Flomax) 0.8 mg PO DAILY #60 caps 07/28/21 10/10/22 Rx levothyroxine 125 mcg tablet 137 mcg PO DAILY@0600 10/26/21 10/10/22 History (Synthroid) potassium chloride 20 mEq 40 meq PO DAILYCC #30 tabs 11/01/21 10/10/22 Rx tablet,extended release(part/cryst) (Klor-Con M) naphazoline 0.025 %-pheniramine 1 drp EYE-BOTH QID PRN Allergy 07/03/22 10/10/22 History 0.3 % eye drops (Naphcon-A) Symptoms digoxin 125 mcg (0.125 mg) tablet 0.125 mg PO Q48H #60 tabs 07/04/22 10/10/22 Rx magnesium oxide 400 mg (241.3 mg 400 mg PO DAILY #30 tabs 07/04/22 10/10/22 Rx magnesium) tablet metoprolol succinate 50 mg 25 mg PO BID #90 tabs 07/04/22 10/10/22 Rx tablet,extended release 24 hr cephalexin 500 mg tablet 500 mg PO BID 10/10/22 10/10/22 History furosemide 20 mg tablet (Lasix) 80 mg PO BID 10/10/22 10/10/22 History levothyroxine 125 mcg tablet 137 mcg PO DAILY@0600 10/10/22 10/10/22 History (Synthroid) Allergies Allergy/AdvReac Type Severity Reaction Status Date / Time Penicillins [PENICILLINS] AdvReac Intermediate Gastrointestinal Verified 10/10/22 11:07 Upset Review of Systems Cardiovascular Comments: Dyspnea on exertion, no chest pain Integumentary/Breasts Comments: Blisters on lower extremities Exam Vital Signs (past 8 hours): - 10/13/22 08:00 10/13/22 12:00 Temperature 97.1 F L 97.3 F L Pulse Rate 55 L 53 L Respiratory Rate 17 17 Blood Pressure 110/60 102/55 L Pulse Oximetry 98 98 Oxygen Flow Rate 0 Oxygen Delivery Method Room Air Oxygen Flow Rate 0 Const General: cooperative and comfortable Nutritional Appearance: average body habitus Orientation: alert and oriented x3 HENMT Head: normocephalic Skin Other: Large intact blisters both lower extremities, superficial open wound dorsum right foot with some eschar, no sign of infection Extrem Other: Mild edema Objective Labs Result Diagrams: 10/13/22 04:08 10/13/22 04:08 Labs: Laboratory Results - last 24 hr 10/13/22 10/13/22 10/13/22 04:08 04:08 04:08 WBC 8.7 RBC 3.09 L Hgb 9.6 L Hct 28.6 L MCV 92.6 MCH 31.2 MCHC 33.7 RDW 14.8 Plt Count 168 Neut % (Auto) 73.4 Lymph % (Auto) 14.5 L [place] % (Auto) 9.4 Eos % (Auto) 2.0 Baso % (Auto) 0.7 Neut # (Auto) 6400 Lymph # (Auto) 1300 [place] # (Auto) 800 Eos # (Auto) 200 Baso # (Auto) 100 PT 18.0 H INR 1.6 H Sodium 134 L Potassium 3.3 L Chloride 96 L Carbon Dioxide 30 BUN 20 Creatinine 1.44 H Estimated GFR 50 L BUN/Creatinine Ratio 13.9 Glucose 133 H Calcium 8.8 Total Bilirubin 0.6 AST 31 ALT 37 Alkaline Phosphatase 125 Total Protein 6.4 PFSH Medical History Alcohol abuse Congestive heart failure Depression Esophageal ulceration Essential hypertension GERD (gastroesophageal reflux disease) Hypothyroidism Mixed hyperlipidemia Venous stasis Surgical History Status post appendectomy Family History Other Congestive heart failure Social History household members: spouse Tobacco & Substance Use Smoking Status: Never smoker alcohol intake: never Assessment & Plan Assessment and plan (1) Non-pressure chronic ulcer left lower leg, limited to breakdown skin: Status: Acute (2) Non-pressure ulcer of right lower extremity: Status: Acute Assessment & Plan narrative: Patient has recurrent blistering with superficial ulcerations and affecting both lower extremities caused by edema from congestive heart failure and venous insufficiency. Recommend loosely wrapping the legs with Kerlex to protect the blisters and we will debride these as an outpatient. Also recommended application of Silvadene to the dorsum of the right foot daily. Follow up at wound center after discharge. Time Spent With Patient Critical Care time: I spent a total of [40] minutes of critical care time on this patient's care today; this time is exclusive of procedural time.
[2022-10-13] MEDS: SILVER SULFADIAZINE 1% CREAM 25 GM 1 APPLIC TOP (16:36)
--- NOTE | 2022-10-13 16:39 | PT-IP ANOTE ---
Attempted to see pt earlier today but he was sleeping soundly and nursing requested he be allowed to sleep. Will be seeing pt tomorrow depending on triage level, PT census, and staffing.
[2022-10-13] MEDS: WARFARIN 5 MG TABLET PO (17:14)
[2022-10-13] MEDS: MELATONIN 3 MG TABLET PO (21:57)
[2022-10-14] VITALS (8 sets, daily range): BP systolic 113–136; BP diastolic 45–64; PULSE 55–77; RESP 17–24; TEMP 36.3–36.6; O2SAT 96–100
[2022-10-14] MEDS: HYDROCODONE/ACET 5/325 TABLET 1 TAB PO ×5 (01:53→21:55)
[2022-10-14] MEDS: LEVOTHYROXINE 137 MCG TABLET PO (06:17)
[2022-10-14 06:27] LABS: Add Manual Diff / Slide Review NO; Basophils Absolute Auto 100 /uL (0-100); Basophils Percent Auto 0.7 % (0-2); Eosinophils Absolute Auto 200 /uL (0-450); Eosinophils Percent Auto 2.4 % (2-4); Hematocrit 27.8 % (41-53); Hemoglobin 9.5 g/dL (13.5-17.5); Lymphocytes Absolute Auto 1200 /uL (1100-4500); Lymphocytes Percent Auto 13.7 % (25-40); Mean Corpuscular HGB Conc 34.3 % (30-36); Mean Corpuscular Hemoglobin 31.7 PG (26-34); Mean Corpuscular Volume 92.6 fL (80-100); Monocytes Absolute Auto 900 /uL (0-900); Monocytes Percent Auto 9.9 % (3-14); Neutrophils Absolute Auto 6400 /uL (1500-7000); Neutrophils Percent Auto 73.3 % (50-75); Platelet Count 156 X10^3/uL (150-400); White Blood Cell Count 8.8 X10^3/uL (4.5-11.0)
[2022-10-14 06:41] LABS: Alanine Aminotransferase 32 IU/L (<50); Alkaline Phosphatase 124 U/L (38-126); Aspartate Aminotransferase 29 IU/L (17-59); BUN Creatinine Ratio 13.4 (6-22); Bilirubin Total 0.7 mg/dL (0.2-1.3); Blood Urea Nitrogen 19 mg/dL (9-20); Calcium 8.9 mg/dL (8.4-10.2); Carbon Dioxide 30 mmol/L (22-32); Chloride 98 mmol/L (98-107); Estimated Glomerular Filt Rate 51 mL/min (>60); Glucose 97 mg/dL (80-110); HEMOLYSIS < 15 (0-50); Potassium 4.2 mmol/L (3.4-5.1); Sodium 134 mmol/L (137-145); Total Protein 6.4 g/dL (6.3-8.2)
--- NOTE | 2022-10-14 08:32 | PT-IP ANOTE ---
Attempted physical therapy session with pt, but nsg was present and states pt will not be available for PT until the PM due to just finishing skin debridement. Nsg notified this was the pt's daily session time, nsg understood and was agreeable.
--- NOTE | 2022-10-14 08:39 | CM.DPC ---
Addendum entered by DAVIE Monteiro 10/14/22 13:56: ADD: Per , rounded on pt again this afternoon and unwrapped his wounds and updated SW that he feels pt will need SNF for wound care before return home and likely will not be ready for d/c by tomorrow now. But awaiting Surgeon recommendations on if any further I&D needed or care needs. SW met bedside with pt and explained role and discussed SNF recommendation and pt adamantly refuses SNF and states he wants home with [facility] and to be in his own home environment with his cat and tv. Pt states though that his spouse is working parttime at [employer] in [place] [employer] and will not be bedside until around 1600. SW discussed pt's complex wound care needs and concerns for infection and pt still declines SNF at this time. Pt has [facility] MCR for insurance and would need auth for SNF and SW sent referral to [facility] and Regina Deng as they are contracted with [facility] to review as a back up in case pt's spouse and pt determine they are agreeable with SNF. Plan: SW to follow closely for further recommendations for Surgeon later today and ongoing discussion with pt and spouse regarding HH vs SNF for wound care. BF Original Note: DCP Cont: Per , pt not yet medically stable to d/c home today but likely tomorrow 10/15/22. Per PT, recommending home with spouse assist and HH and did not work with pt yesterday due to tiredness and will attempt again today. SELINA faxed [facility] the Wound MD consult note with wound care recommendations along with HH orders and the completed F2F in anticipation of discharge tomorrow. Plan: SW to follow for further PT today and plan of d/c home with spouse and [facility] tomorrow and to fax d/c summary to [facility] at discharge. DAVIE Monteiro
[2022-10-14] MEDS: TAMSULOSIN 0.4 MG CAPSULE 0.8 MG PO (09:34)
[2022-10-14] MEDS: MAGNESIUM OXIDE 400 MG TABLET PO (09:34)
[2022-10-14] MEDS: DOCUSATE 100 MG CAPSULE PO ×2 (09:35→21:55)
[2022-10-14] MEDS: PANTOPRAZOLE DR 40 MG TABLET PO (09:36)
[2022-10-14] MEDS: FUROSEMIDE 40 MG TABLET PO (09:36)
[2022-10-14] MEDS: SODIUM CHLORIDE 0.9% FLUSH 10 ML IV ×2 (09:39→22:01)
[2022-10-14] MEDS: cefUROXime 250 MG TABLET 500 MG PO ×2 (09:45→22:02)
[2022-10-14] MEDS: BACITRACIN 28 GM OINT 1 APPLIC TOP (09:46)
[2022-10-14] MEDS: METOPROLOL ER 25 MG TABLET PO (09:50)
--- NOTE | 2022-10-14 13:31 | P.PN_ITS ---
Subjective Subjective Date Patient Seen: 10/14/22 Time Patient Seen: 08:00 Interval history: Patient seen in follow-up of multiple issues leg ulcers cellulitis hypokalemia. Overall feeling better today. Pain is a little better controlled. Feels like his edema is good. Having no chest pain shortness breath or other changes. Exam Vital Signs (past 8 hours): - 10/14/22 08:06 10/14/22 10:20 Temperature 98 F Pulse Rate 77 70 Respiratory Rate 19 Blood Pressure 123/62 Pulse Oximetry 97 Oxygen Flow Rate 0 Oxygen Delivery Method Room Air Oxygen Flow Rate 0 Narrative Exam Narrative: Alert male in no acute distress hard of hearing Lungs are clear heart regular rate and rhythm extremities with improved edema. Continued blister from basically the left medial aspect of his leg almost the whole calf and top of the foot. Large blisters. No other changes. Right leg wrapped Objective Labs Result Diagrams: 10/14/22 04:46 10/14/22 04:46 Labs: Laboratory Results - last 24 hr 10/14/22 10/14/22 04:46 04:46 WBC 8.8 RBC 3.00 L Hgb 9.5 L Hct 27.8 L MCV 92.6 MCH 31.7 MCHC 34.3 RDW 15.0 H Plt Count 156 Neut % (Auto) 73.3 Lymph % (Auto) 13.7 L [place] % (Auto) 9.9 Eos % (Auto) 2.4 Baso % (Auto) 0.7 Neut # (Auto) 6400 Lymph # (Auto) 1200 [place] # (Auto) 900 Eos # (Auto) 200 Baso # (Auto) 100 Sodium 134 L Potassium 4.2 Chloride 98 Carbon Dioxide 30 BUN 19 Creatinine 1.42 H Estimated GFR 51 L BUN/Creatinine Ratio 13.4 Glucose 97 Calcium 8.9 Total Bilirubin 0.7 AST 29 ALT 32 Alkaline Phosphatase 124 Total Protein 6.4 PFSH Medical History Alcohol abuse Congestive heart failure Depression Esophageal ulceration Essential hypertension GERD (gastroesophageal reflux disease) Hypothyroidism Mixed hyperlipidemia Venous stasis Surgical History Status post appendectomy Family History Other Congestive heart failure Social History household members: spouse Smoking Status: Never smoker alcohol intake: never Assessment & Plan Assessment & Plan narrative: Lower leg ulcers and blisters. Wound Care seen him yesterday but did not debride anything. Today under sterile procedure the left foot and inner calf were debrided. And blisters were open. Really almost is 50% of his lower leg. No evidence of infection. Discussed with Dr. Marley I would like her to see and see what she thinks about care is almost like a large burn. There isn't any other changes. Risk factors are certainly controlled edema is much improved will continue with diuresis and re-evaluate. Certainly I do not think he is going home until these were dealt with in a better way Congestive heart failure. Doing well. I think were at baseline. Heart rates controlled on Lasix once a day and will follow. Cellulitis. Stable. White count is improved. Will continue on antibiotics at least for today. Hypokalemia. Improved. B.i.d. potassium today. From t.i.d.. Renal failure stable. Atrial fibrillation. Rate controlled. No issue. Coumadin restarted. INR tomorrow. Disposition. Patient probably will be here a few more days until wound care is established with good care. And I am hoping we can get written by the end of the week. Pretty worried about the extent of left leg involvement. Will see what surgeon thinks. Time Spent With Patient Critical Care time: I spent a total of [] minutes of critical care time on this patient's care today; this time is exclusive of procedural time. Quality VTE Deep Vein Thrombosis/Pulmonary Embolism Present on Admission: No
--- NOTE | 2022-10-14 15:00 | PT-IP ANOTE ---
Pt not available for treatment. Waiting for surgeon to come to view leg before wrapping, per nursing. Will resume attempts to continue therapy tomorrow.
[2022-10-14] MEDS: POTASSIUM CHLORIDE 20 MEQ/15 ML UDC 40 MEQ PO (16:42)
[2022-10-14] MEDS: WARFARIN 5 MG TABLET PO (17:48)
[2022-10-14] MEDS: DIGOXIN 0.125 MG TABLET PO (17:48)
[2022-10-14] MEDS: MELATONIN 3 MG TABLET PO (22:00)
--- NOTE | 2022-10-14 23:10 | PC.NURSE ---
Addendum entered by Mckinley Kidd R.N. 10/14/22 23:38: Pt requested home cushion again, educated again on indentation in skin and recommended to not use it. Pt verbalized understanding its not good but he wants it back. Pillows removed and home cushion placed. Original Note: R leg dressing changed tonight, L leg was changed during day time. Pt has been sitting on home chair cushion since arrival, when turning noticable indentation from cushion. Pt agreed to remove and bridge w/ pillows for now.
[2022-10-15] VITALS: BP 112/64; PULSE 75; RESP 23; TEMP 36.3; O2SAT 99
[2022-10-15] MEDS: HYDROCODONE/ACET 5/325 TABLET 1 TAB PO ×5 (01:52→21:37)
[2022-10-15 04:53] LABS: Add Manual Diff / Slide Review NO; Basophils Absolute Auto 100 /uL (0-100); Basophils Percent Auto 0.7 % (0-2); Eosinophils Absolute Auto 300 /uL (0-450); Hematocrit 30.3 % (41-53); Lymphocytes Absolute Auto 1300 /uL (1100-4500); Lymphocytes Percent Auto 14.3 % (25-40); Mean Corpuscular HGB Conc 32.9 % (30-36); Mean Corpuscular Hemoglobin 31.1 PG (26-34); Mean Corpuscular Volume 94.3 fL (80-100); Monocytes Absolute Auto 800 /uL (0-900); Monocytes Percent Auto 8.7 % (3-14); Neutrophils Absolute Auto 6900 /uL (1500-7000); Neutrophils Percent Auto 73.3 % (50-75); Platelet Count 162 X10^3/uL (150-400); Red Blood Cell Count 3.21 X10^6/uL (4.5-5.9); Red Cell Distribution Width 15.4 % (11.6-14.8); White Blood Cell Count 9.4 X10^3/uL (4.5-11.0)
[2022-10-15 05:04] LABS: Alanine Aminotransferase 33 IU/L (<50); Alkaline Phosphatase 141 U/L (38-126); Aspartate Aminotransferase 32 IU/L (17-59); BUN Creatinine Ratio 15.5 (6-22); Bilirubin Total 0.9 mg/dL (0.2-1.3); Blood Urea Nitrogen 20 mg/dL (9-20); Calcium 9.3 mg/dL (8.4-10.2); Carbon Dioxide 26 mmol/L (22-32); Chloride 96 mmol/L (98-107); Estimated Glomerular Filt Rate 57 mL/min (>60); Glucose 98 mg/dL (80-110); Potassium 4.2 mmol/L (3.4-5.1); Sodium 130 mmol/L (137-145); Total Protein 6.7 g/dL (6.3-8.2)
[2022-10-15] MEDS: LEVOTHYROXINE 137 MCG TABLET PO (05:56)
--- NOTE | 2022-10-15 07:43 | CM.DPC ---
Addendum entered by Brandie Box R.N. 10/15/22 15:06: COVID swab orders already placed. Addendum entered by Brandie Box R.N. 10/15/22 15:03: [facility] has received the auth, and can pick patient up at 1345. Attempted again to reach out to spouse, but no answer. Patient has consented to go to shelter as long as it's covered by his insurance. Called over at Dr. Hoover's office, and spoke to Alise at the front end architect to see if she can let him know. Will see if COVID swab has yet been placed. Addendum entered by Brandie Box R.N. 10/15/22 13:18: Checked in with [facility], she has submitted auth, but unsure as to when she will have the auth, could be today, but they may have to review. She will call this DC Housekeeping Room Inspector back with update. Have not been able to contact spouse, Avani, as of yet. Did complete PASSR. Addendum entered by Brandie Box R.N. 10/15/22 10:54: Patient is willing for patient to go to shelter, as long as they have a TV. Will send over today's P.T. note. Attempted spouse, Avani, again, and no answer. Patient wants to ensure that this is covered by his insurance, let him know that the facility is working on insurance auth. Placed COVID swab order. Original Note: DCP Cont: [facility] from [facility] has confirmed acceptance. She needs updated P.T. note to submit auth. Dr. Hoover came by the care management office and stated, patient is willing to go. Attempted to reach patient's spouse, Avani, but phone kept ringing with no voice mail. No other facilities have confirmed acceptance. Let Dr. Hoover know that if the auth is obtained today, will call him, he plans on coming by at lunch time. P: DCP to work on getting patient over to [facility], will reattempt to reach out to spouse, and update patient. Brandie Box RN/Supervisor Molding
[2022-10-15] MEDS: POTASSIUM CHLORIDE 20 MEQ/15 ML UDC 40 MEQ PO ×2 (10:22→17:40)
[2022-10-15] MEDS: PANTOPRAZOLE DR 40 MG TABLET PO (10:22)
[2022-10-15] MEDS: TAMSULOSIN 0.4 MG CAPSULE 0.8 MG PO (10:22)
[2022-10-15] MEDS: METOPROLOL ER 25 MG TABLET PO ×2 (10:22→21:33)
[2022-10-15] MEDS: MAGNESIUM OXIDE 400 MG TABLET PO (10:22)
[2022-10-15] MEDS: SODIUM CHLORIDE 0.9% FLUSH 10 ML IV ×2 (10:22→21:34)
[2022-10-15] MEDS: cefUROXime 250 MG TABLET 500 MG PO ×2 (10:23→21:31)
[2022-10-15] MEDS: DOCUSATE 100 MG CAPSULE PO ×2 (10:23→21:31)
[2022-10-15] MEDS: FUROSEMIDE 40 MG TABLET PO ×2 (10:23→21:32)
--- NOTE | 2022-10-15 10:57 | PT.IPTN ---
Current Diagnoses Heart failure, unspecified (10/13/22) Non-pressure chronic ulcer of unspecified part of right lower leg with unspecified severity (10/13/22) Non-pressure chronic ulcer of unspecified part of left lower leg limited to breakdown of skin (10/13/22) Other skin changes (10/13/22) Elevation of levels of liver transaminase levels (10/13/22) Physical Therapy Treatment Note M2 PT-IP Current Condition Start: 10/12/22 09:03 Freq: NEEDED Status: Active Protocol: Document 10/12/22 10:42 AW (Rec: 10/12/22 11:13 AW [id number]) Physical Therapy Current Condition Current Condition Evaluation Date 10/12/22 Treatment Diagnosis BLE edema, cellulitis, CHF exacerbation, difficulty in walking Onset Date 10/10/22 M3 PT-IP Subjective Start: 10/12/22 09:03 Freq: NEEDED Status: Active Protocol: Document 10/15/22 10:32 SRIKANTH (Rec: 10/15/22 10:56 LJ [id number]) Subjective Physical Therapy Visit Type Type Treatment Note Visit Start Time 09:44 Visit Stop Time 10:12 Total Visit Minutes 28 Number of DIP TANKER Visits 1 Physical Therapy Visit Comments Patient Comments Pt is willing to participate with PT Patient Goals Return home. Concerned about the cost of going to SNF Therapy Pain Assessment Pain When Pain Assessed During Mobility Pain Present Pain Present Pain Reported Location Bilateral Lower Leg Scale Used not quantified M4 PT-IP Mobility and Gait Start: 10/12/22 09:03 Freq: NEEDED Status: Active Protocol: Document 10/15/22 10:32 SRIKANTH (Rec: 10/15/22 10:56 SRIKANTH [id number]) PT-Bed Mobility Assessment Supine to Sit Supine to Sit Moderate Assistance,1 Person Assistance,Head of Bed Elevated Scooting Scooting to Edge of Bed Moderate Assistance PT-Transfer Assessment Sit to and From Stand Sit to and from Stand Minimal Assistance,1 Person Assistance,Use of Upper Extremities Equipment Transfer Assistive Device Gait Belt,Front Wheeled Walker Orthotic/Prosthetic Devices or Brace: No Transfers Transfer Destination Chair Transfer Ability Level of Assist Minimal Assistance,1 Person Assistance,Use of Upper Extremities Comments Mobility Comments Pt lying in bed with nursing in room. Pt willing to participate with PT. With HOB elevated ~35 degrees and lower portion of bed slightly lowered for easier clearance with LEs, Pt required ModA with arm hold to come to seated position on side of bed . ModA to scoot to side of bed such that his feet would touch the floor. Pt sat on side of bed ~1 minute prior to standing which required Adriel with gait belt around chest to assist pt in standing. Pt c/o back pain in seated and standing position. Pt then ambulated with FWW CGA and Max cueing for FWW management. Pt ambulated to other side of bed then returned to same side . Pt c/o sitting in chair which was set up, not having his cushion under buttocks, and wantng back washed. Pt stood for several minutes while nursing switched chairs, aquired cushion, readied herself for getting pt ready for bathing in chair. Pt then ambulated ~5' from foot of bed to chair then sat with cues to reach back. Pt then stated he had to use urinal so he stood from chair CGA and was assisted with voiding in the urinal. Pt then reamined standing for bathing another ~ 3 minutes. Pt instructed to sit in chair, lowering himself down carrefully CGA. Pt left with nursing attending to him. Gait Assessment Gait Gait Assistance Required: Contact Guard Assist,Minimum Assistance Distance (Feet) 15 Assistive Devices Assistive Device Gait Belt,Front Wheeled Walker Orthotic/Prosthetic Devices or Brace: No Gait Deviations General Gait Pattern Antalgic,Flexed Trunk,Wide Based Gait Factors Limiting Gait Function Factors Limiting Gait Function Decreased Strength,Pain,Poor Balance,Poor Safety Awareness Comments Gait Comments see mobility section. Requires max cueing for FWW management and safety. Stair Climbing Assessment Comments Stair Climbing Comments Not assessed. No stairs at home. PT-Balance Assessment Sitting Balance and Reactions Static Sitting Balance Ability Good Dynamic Sitting Balance Ability Good Standing Balance and Reactions Static Standing Balance Ability Fair Dynamic Standing Balance Ability Fair Device Used FWW M5 PT-IP Objective Assessments Start: 10/12/22 09:03 Freq: NEEDED Status: Active Protocol: Document 10/12/22 10:42 AW (Rec: 10/12/22 11:13 AW [id number]) Orientation Orientation/Cognition Level of Alertness Alert Orientation Name,Day of Week,Place, Situation Language Function Ability Hard of Hearing Safety Awareness Decreased Safety Awareness Comments Pt states he has R eye vision loss Gross Range of Motion Lower Extremity ROM Assessment Bilaterally Impaired Impairments Pt lacking dorsiflexion just to neutral bilaterally Strength Lower Extremity Strength Assessment Bilaterally Impaired Hip 4-/5 Comments Strength Comments Challenging to assess distal to hip due to care needed to avoid skin shear. Muscle Tone Muscle Tone WNL Yes Other Assessments Other Other Assessments Pt has impressive bullae on bilateral feet. His wounds are quite weepy and occasionally serous fluid runs down his leg and foot. M6 PT-IP Treatment Start: 10/12/22 09:03 Freq: NEEDED Status: Active Protocol: Document 10/15/22 10:56 LJ (Rec: 10/15/22 10:56 [id number]) Physical Therapy Treatment Education Education Provided Safety M7 PT-IP Assessment and Plan Start: 10/12/22 09:03 Freq: NEEDED Status: Active Protocol: Document 10/15/22 10:32 LJ (Rec: 10/15/22 10:56 [id number]) PT Summary Assessment and Plan Potential Rehabilitation Potential Fair Status of Condition at Evaluation Evolving Summary Impairments Pain,ROM,Strength,Balance,Bed Mobility,Transfers,Gait, Activity Tolerance Assessment Summary Pt requiring ModA -CGA for bed mobility, transfers, and ambulation. He demonstrates lack of safe manipulation of FWW and complains of the walker not having brakes. Pt requires maxcueing to keep walker close and in front of him occasionally letting it veer off to one side. Pt describes getting into his van as having to step up and use a handrail. Cannot approach it buttocks first then sit directly. It is doubtful pt would be able to get into van at his current level of function. He will need to improve his mobility and function prior to returning home safely. SNF is highly recommended for DC Goals Bed Mobility Goal Contact Guard Assistance Transfer Goal Standby Assistance,Four Wheeled Walker Gait Goal Standby Assistance,Four Wheel Walker Gait Distance 50 Other Goals - improve gait to 150' with 4WW SBA Days to Meet Goals 5 Frequency of Treatment Frequency Of Treatment Once a Day Treatment Plan Physical Therapy Treatment Plan Bed Mobility Training,Transfer Training,Gait Training, Therapeutic Exercise,Balance Retraining,Discharge Planning, Hot or Cold Pack Other Recommendations and Next Treatment transfers with 4WW; assess Focus gait with 4WW Precautions Other Precautions avoid skin shear, protect wounds; falls risk Recommendations To Nursing Amount of Assist Needed 1 Person Assist Discharge Recommendations PT Discharge Recommendations Home with Assistance,Home Health,Home vs SNF Transportation Needs at Discharge Private Vehicle,Wheelchair/ Cabulance
[2022-10-15 11:12] VITALS: PULSE 65
--- NOTE | 2022-10-15 14:22 | PM.PN.1 ---
Subjective Subjective Date Patient Seen: 10/15/22 Time Patient Seen: 14:22 Interval history: Patient seen in follow-up of leg ulcers and congestive heart failure atrial fibrillation. Patient actually feeling okay this morning. Having no other changes legs have been more painful today. Otherwise no change. Has had a lot of weeping from his wounds. But no other changes. Exam Vital Signs (past 8 hours): - 10/15/22 11:12 Pulse Rate 65 Oxygen Delivery Method Room Air Oxygen Flow Rate 0 Narrative Exam Narrative: Alert male in no acute distress. Lungs are clear. Heart is regular rate and rhythm. Extremities with trace to 1+ edema wounds are wrapped. Objective Labs Result Diagrams: 10/15/22 04:43 10/15/22 04:43 Labs: Laboratory Results - last 24 hr 10/15/22 10/15/22 04:43 04:43 WBC 9.4 RBC 3.21 L Hgb 10.0 L Hct 30.3 L MCV 94.3 MCH 31.1 MCHC 32.9 RDW 15.4 H Plt Count 162 Neut % (Auto) 73.3 Lymph % (Auto) 14.3 L [place] % (Auto) 8.7 Eos % (Auto) 3.0 Baso % (Auto) 0.7 Neut # (Auto) 6900 Lymph # (Auto) 1300 [place] # (Auto) 800 Eos # (Auto) 300 Baso # (Auto) 100 Sodium 130 L Potassium 4.2 Chloride 96 L Carbon Dioxide 26 BUN 20 Creatinine 1.29 H Estimated GFR 57 L BUN/Creatinine Ratio 15.5 Glucose 98 Calcium 9.3 Total Bilirubin 0.9 AST 32 ALT 33 Alkaline Phosphatase 141 H Total Protein 6.7 PFSH Medical History Alcohol abuse Congestive heart failure Depression Esophageal ulceration Essential hypertension GERD (gastroesophageal reflux disease) Hypothyroidism Mixed hyperlipidemia Venous stasis Surgical History Status post appendectomy Family History Other Congestive heart failure Social History household members: spouse Smoking Status: Never smoker alcohol intake: never Assessment & Plan Assessment & Plan narrative: Lower leg ulcers and blisters. Chronic. Wound Care has seen him and will need to be set up as outpatient. Given the extent of his wounds I think it would be inappropriate to send him home. I do not think they can manage the degree of care that will be required for these large blisters and healing wounds. I believe that a rehab center would be the best place for him. Once they start to heal I think he can go home and actively take care of him. But otherwise no changes. Will continue b.i.d. dressing changes which were having to do. And will follow. Discussed with resource management planner hopefully we can get this set up. Will follow from there. Probable discharge tomorrow. Congestive heart failure. Secondary to combination of AFib and that. Will increase Lasix I think b.i.d. is what is going to be required and we will continue to follow. Will need cardiac workup past. We have had difficulty in the past due to the fact that is very difficult to get hold of his . We probably will need to do the referral have her call. Will set up as outpatient. Cellulitis. Actually seems to be doing well. Will be discharged on no antibiotics. Will continue IV until discharge. Hypokalemia. Stable at this time. Will recheck tomorrow. Restart 1 potassium a day. Renal failure. Stable. Atrial fibrillation stable. Disposition. Hoping can discharge to SNF tomorrow if unable to will need 2 or 3 more days in the hospital before going home and probably not doing well secondary to the amount of care that is going to be required. Patient understands. He agrees with plan. Discussed with social service. 35 minutes spent with patient with social service with nursing charting lab orders Time Spent With Patient Critical Care time: I spent a total of [] minutes of critical care time on this patient's care today; this time is exclusive of procedural time. Quality VTE Deep Vein Thrombosis/Pulmonary Embolism Present on Admission: No
--- NOTE | 2022-10-15 14:33 | CM.DPNOTE ---
Zoë Rossi at [facility] per Idalia and left VM saying pt. going to tomorrow and cancel home health referral. Leilani Beavers, MUNA Assist.
[2022-10-15] MEDS: BACITRACIN 28 GM OINT 1 APPLIC TOP (15:28)
[2022-10-15] MEDS: HYDROMORPHONE 1 MG INJ IV (17:41)
[2022-10-15] MEDS: WARFARIN 5 MG TABLET PO (17:41)
[2022-10-15 18:18] LABS: COVID19 -Nasal RAPID Negative (Negative)
[2022-10-15 20:00] VITALS: BP 122/72; PULSE 76; RESP 19; TEMP 36.2; O2SAT 98
[2022-10-15] MEDS: MELATONIN 3 MG TABLET PO (21:31)
[2022-10-15 21:33] VITALS: BP 122/72; PULSE 76
[2022-10-15 22:25] VITALS: BP 124/58; PULSE 66
[2022-10-16] MEDS: HYDROCODONE/ACET 5/325 TABLET 1 TAB PO ×3 (01:35→13:01)
[2022-10-16] MEDS: HYDROMORPHONE 1 MG INJ IV (04:39)
[2022-10-16] MEDS: SODIUM CHLORIDE 0.9% FLUSH 10 ML IV ×2 (04:40→09:17)
[2022-10-16] MEDS: BACITRACIN 28 GM OINT 1 APPLIC TOP (04:43)
[2022-10-16] MEDS: LEVOTHYROXINE 137 MCG TABLET PO (05:37)
--- NOTE | 2022-10-16 06:54 | PC.NURSE ---
Pt. finally sleeping after medicated with 1 mg. of Dilaudid IVP prior to dressing changed. Slept in the recliner all shift, will monitor & cont. POC.
[2022-10-16 07:00] VITALS: BP 123/67; PULSE 62; RESP 17; TEMP 35.9; O2SAT 98
--- NOTE | 2022-10-16 08:18 | CM.DPC ---
Addendum entered by Brandie Box R.N. 10/16/22 15:24: Was able to get in touch with spouse, Avani Reed, as she just got off of work. She is now aware that patient is at [facility]. Let her know that Dr. Hoover wanted him to go to a half-way facility due to the acuity of his wounds. Gave her the address and phone number for [facility]. Let her know that this is one of the facilities contracted with [employer]. Addendum entered by Brandie Box R.N. 10/16/22 14:24: Since this DC Pen Rider has not been able to reach spouse, Avani, called [employer], she is employed there, confirmed that she is working today, and asked staff member to call this DC Pen Rider for update. Patient has been discharged to [facility], orders were signed by Dr. Padron, and faxed. He was picked up at 1345. Addendum entered by Brandie Box R.N. 10/16/22 12:02: Updated patient that he is going to [facility] with pickler helper at 1345. Let him know that this DC Pen Rider has attempted to reach his , not answering her phone, and no voice mail. He stated, she's probably at work, she works a [employer]. Dr. Padron came by the care management office, updated him on accepting facility, and that this DC Pen Rider has attempted to reach spouse. Original Note: DCP Cont: Patient is to be going to [facility] today. Attempted again to reach spouse, but unable. Have not yet seen Dr. Hoover as of yet to do orders, and will update patient. COVID swab was already placed. Will ensure that wound care orders are included as well. P: DCP to continue to follow. Plan is for patient to go to [facility] today with pickler helper at 1345. Provider has not been here as of yet. Brandie Box RN/[employer]
[2022-10-16] MEDS: TAMSULOSIN 0.4 MG CAPSULE 0.8 MG PO (09:14)
[2022-10-16] MEDS: MAGNESIUM OXIDE 400 MG TABLET PO (09:14)
[2022-10-16] MEDS: PANTOPRAZOLE DR 40 MG TABLET PO (09:14)
[2022-10-16] MEDS: POTASSIUM CHLORIDE 20 MEQ/15 ML UDC 40 MEQ PO (09:14)
[2022-10-16] MEDS: METOPROLOL ER 25 MG TABLET PO (09:15)
[2022-10-16] MEDS: FUROSEMIDE 40 MG TABLET PO (09:15)
[2022-10-16] MEDS: cefUROXime 250 MG TABLET 500 MG PO (09:16)
[2022-10-16] MEDS: DOCUSATE 100 MG CAPSULE PO (09:16)
--- NOTE | 2022-10-16 11:05 | PM.DS.1 ---
History of Present Illness History of Present Illness Date Patient Seen: 10/16/22 Time Patient Seen: 08:50 Chief complaint: Lower extremity swelling Narrative: Feeling ok this morning, legs are dressed and wrapped, planning discharge to [facility] this afternoon. He is concerned regarding the continuation of his various herbal remedies and seeing to his hygiene but ready for the change. Eating ok this morning, using urinal to pee. Discharge Providers Provider Date of admission: 10/13/22 14:18 Discharge Date: 10/16/22 Primary care physician: Zackary Hoover MD Consults: 10/10/22 17:02 Consult to Inpatient Wound Care Nurse Routine Comment: Reason for consultation: ankle bullae Has provider been notified: Yes 10/12/22 06:32 Consult to Physical Therapy Evaluate & Treat Comment: Physician Instructions: Evaluate and Treat 10/13/22 08:28 Consult to Wound Care Routine Comment: Consulting Provider: [facility] 10/14/22 08:34 Consult to Home Health Routine Comment: Fluid overload, LE blisters, wound care Reason For Exam: Set up HH RN/PT/OT/DESIZING PAD OPERATOR for d/c to home 10/14/22 08:46 Consult to Physician Routine Comment: Consulting Provider: Li Marley Reason for consultation: open wounds leg Has provider been notified: Yes Discharge provider: Arley Padron MD Summary Hospital Course Discharge Diagnosis: #Lower leg ulcers and blisters, impressive, present on admission #Congestive heart failure, diastolic, chronic, present on admission.? #Cellulitis.? #Hypokalemia.? #Renal failure chronic stage 3 #Atrial fibrillation Hospital Course: Presents from home with with complaint of extremely swollen blisters on both legs. reports they have popped up drastically over last couple days but wound care suspects has been brewing longer. There was one small blister on the R medial ankle which has popped, and several extremely large 15cm+ turbid bullae on L foot and ankle. Seen by wound care in [place] who recommended diuresis to bring them down, attempt to not drain them if possible. He reports otherwise feeling in his usual state of health no extra breathing trouble feeling ok eating ok. During this admission he did ok with aggressive diuresis and wound care including debridement of the blisters. Stable now completed antibiotics but unable to care for his wounds at home requires extra care to heal. Patient has a number of care-oriented requests regarding supplements and hygiene he will go over at new facility. If possible would prefer to sleep in a therapy recliner if it can be accommodated. Status at Discharge Cognitive/behavioral status at discharge: at baseline, oriented and calm Functional status at discharge: wheelchair bound Overall status at discharge: patient is not back to baseline Exam Vital Signs (past 8 hours): - 10/16/22 07:00 Temperature 96.6 F L Pulse Rate 62 Respiratory Rate 17 Blood Pressure 123/67 Pulse Oximetry 98 Oxygen Flow Rate 0 Oxygen Delivery Method Room Air Oxygen Flow Rate 0 Narrative Exam Narrative: sitting in recliner finishing breakfast. strong odor of garlic. Const Nutritional Appearance: well nourished HENMT Head: atraumatic Resp Auscultation: clear to auscultation bilaterally Cardio Other: regular rate, S1/S2 GI Other: active bowel sounds soft to palpation Skin Other: bilateral lower extremities wrapped in clean dressings from toes to knees. distal NV intact good cap refill. ~1+ pitting edema. see wound care notes; impressive blisters s/p debridement covering significant percentage of surface area of lower legs Neuro General: patient oriented x3 and moves all extremities Psych Mental Status: mental status grossly normal Objective Labs Result Diagrams: 10/15/22 04:43 10/15/22 04:43 Labs: Laboratory Results - last 24 hr 10/15/22 10:49 SARS-CoV-2 (PCR) Negative [facility] Medical History Alcohol abuse Congestive heart failure Depression Esophageal ulceration Essential hypertension GERD (gastroesophageal reflux disease) Hypothyroidism Mixed hyperlipidemia Venous stasis Surgical History Status post appendectomy Family History Other Congestive heart failure Social History household members: spouse Smoking Status: Never smoker alcohol intake: never Discharge Assessment & Plan Assessment and Plan Assessment: #Lower leg ulcers and blisters, impressive, present on admission Wound care is following. Due to the extent of these blisters he is not candidate for discharge home, will be going to [facility] for continued assistance with healing until he is able to ambulate and mange them himself. Continue wound care and regular dressing changes. #Congestive heart failure, diastolic, chronic, present on admission.? Secondary to combination of AFib and infection.? Continue home dose of lasix, will set up cardiology referral as outpatient.? #Cellulitis.? Actually seems to be doing well.? Will be discharged on no antibiotics.? Will continue IV until discharge.? #Hypokalemia.? stable restart oral potassium #Renal failure chronic stage 3 improved s/p hydration avoid nephrotoxics #Atrial fibrillation stable continue warfarin 5mg po daily with weekly INR checks.? Disposition: discharging to [facility] this afternoon. F/u with PCP when home. PCP: Kiko code: DNR diet: heart healthy MDM: Avani 45 minutes spent with patient with social service with nursing charting lab orders Discharge Plan Discharge Plan Patient Disposition: SNF Transfer to: [facility] Discharge orders & Medications Prescriptions: New hydrocodone-acetaminophen 5-325 mg Tablet 1 tab PO Q4H PRN (Reason: Pain, Moderate (4-6)) Qty: 30 0RF naloxone 0.4 mg/mL Solution 0.2 mg IV Q2MIN PRN (Reason: Opiate Reversal) Qty: 12 0RF levothyroxine 137 mcg Tablet 137 mcg PO 0600 Qty: 30 0RF warfarin 5 mg Tablet 5 mg PO DAILY@1700 Qty: 30 0RF melatonin 3 mg Tablet 3 mg PO BEDTIME Qty: 30 0RF silver sulfadiazine [Silvadene] 1 % Cream 1 applic topical DAILY Qty: 30 0RF bacitracin 500 unit/gram Ointment 1 applic topical BID Qty: 30 0RF Continued pantoprazole 40 mg Tablet,Delayed Release (Dr/Ec) 40 mg PO DAILY Qty: 30 0RF pravastatin 20 mg Tablet 40 mg PO BEDTIME Qty: 30 0RF potassium chloride [Klor-Con M20] 20 mEq Tablet,Er Particles/Crystals 40 meq PO DAILYCC Qty: 30 1RF Naphcon-A 0.025-0.3 % drops 1 drp EYE-BOTH QID PRN (Reason: Allergy Symptoms) Label Comments: INSTILL 1 TO 2 DROPS IN BOTH EYES UP TO FOUR TIMES DAILY NEEDED FOR ALLERGY SYMPTOMS magnesium oxide 400 mg (241.3 mg magnesium) Tablet 400 mg PO DAILY Qty: 30 0RF digoxin 125 mcg (0.125 mg) Tablet 0.125 mg PO Q48H Qty: 60 0RF metoprolol succinate 50 mg Tablet Extended Release 24 Hr 25 mg PO BID Qty: 90 3RF furosemide [Lasix] 20 mg tablet 80 mg PO BID tamsulosin [Flomax] 0.4 mg Capsule 0.8 mg PO DAILY Qty: 60 0RF Discontinued levothyroxine [Synthroid] 125 mcg tablet 137 mcg PO DAILY@0600 levothyroxine [Synthroid] 125 mcg tablet 137 mcg PO DAILY@0600 cephalexin 500 mg tablet 500 mg PO BID Label Comments: Take 2 tablet by mouth twice a day Follow up/Referrals: Zackary Hoover MD [Primary Care Provider] - Visit Report/Discharge Packet Stand Alone Forms: Patient Portal/API Discharge Data Primary Care Provider: Zackary Hoover Quality VTE Deep Vein Thrombosis/Pulmonary Embolism Present on Admission: No
[2022-10-16 11:18] VITALS: PULSE 63
[2022-10-16 13:00] VITALS: BP 155/61; PULSE 60; RESP 16; TEMP 36.6; O2SAT 95
--- NOTE | 2022-10-16 14:27 | PC.NURSE ---
notified provider regarding patient not having a bowel movement for 6 days. offered to take him to bathroom and try to have bm, suppository as well but patient refused
[2022-10-17 15:22] LABS: Albumin 3.1 g/dL (3.5-5.0); Globulin 3.2 g/dL (1.7-4.1)
[2022-10-17 15:35] LABS: Albumin 3.1 g/dL (3.5-5.0); Albumin Globulin Ratio 0.9 (1.0-2.8); Globulin 3.3 g/dL (1.7-4.1)
[2022-10-17 16:07] LABS: Albumin Globulin Ratio 0.9 (1.0-2.8); Globulin 3.4 g/dL (1.7-4.1)
[2022-10-17 16:44] LABS: Albumin 3.3 g/dL (3.5-5.0); Globulin 3.4 g/dL (1.7-4.1); HEMOLYSIS 21 (0-50)
== END 2022-10-16 13:30 | DRG 592 ==
LOC: ED 14:54 → AC 15:58
PROVIDERS: Family Medicine; Admitting Provider Family Medicine; Emergency Provider Emergency Medicine; PCP Family Medicine; Referring Provider Emergency Medicine; Visit Provider Family Medicine
DX: L97.921 Non-pressure chronic ulcer of unspecified part of left lower leg limited to breakdown of skin (principal); I50.21 Acute systolic (congestive) heart failure; I13.0 Hypertensive heart and chronic kidney disease with heart failure and stage 1 through stage 4 chronic kidney disease, or unspecified chronic kidney disease; N13.8 Other obstructive and reflux uropathy; L03.116 Cellulitis of left lower limb; L03.115 Cellulitis of right lower limb; L97.911 Non-pressure chronic ulcer of unspecified part of right lower leg limited to breakdown of skin; I48.91 Unspecified atrial fibrillation; N18.32 Chronic kidney disease, stage 3b; E03.9 Hypothyroidism, unspecified; J30.2 Other seasonal allergic rhinitis; N40.1 Benign prostatic hyperplasia with lower urinary tract symptoms; E87.6 Hypokalemia; K21.9 Gastro-esophageal reflux disease without esophagitis; E78.2 Mixed hyperlipidemia; Z66 Do not resuscitate; Z20.822 Contact with and (suspected) exposure to COVID-19
CPT/HCPCS: 36415; 51798; 71045; 80053; 81001; 82550; 83605; 83880; 84145; 84484; 85025; 85610; 85651; 85730; 86140; 87040; 87635; 93005; 93010; 96365; 96367; 96375; 97116; 97162; 97530; 99232; 99284; 99285; C9803; G0378; J0696; J1170; J1940; J2270

== ENCOUNTER → 2022-11-07 16:04 | Outpatient (ROUT) | payer OTHER, SELFPAY ==
[2022-10-10 17:05] VITALS: BMI 36.7
[2022-11-07 16:19] LABS: INR 3.2 (0.9-1.3); Prothrombin Time 37.2 SECONDS (10.1-12.7)
== END ==
PROVIDERS: PCP Family Medicine; Visit Provider Family Medicine
DX: I48.91 Unspecified atrial fibrillation (principal)
CPT/HCPCS: 85610

== ENCOUNTER → 2022-11-18 14:00 | Outpatient (CLI) | payer OTHER, SELFPAY ==
[2022-10-10 17:05] VITALS: BMI 36.7
== END ==
PROVIDERS: PCP Family Medicine; Referring Provider Family Medicine; Visit Provider Surgery
DX: I87.2 Venous insufficiency (chronic) (peripheral) (principal); L97.212 Non-pressure chronic ulcer of right calf with fat layer exposed; L89.622 Pressure ulcer of left heel, stage 2; L97.812 Non-pressure chronic ulcer of other part of right lower leg with fat layer exposed; M79.672 Pain in left foot; R60.0 Localized edema; L53.9 Erythematous condition, unspecified; Z79.01 Long term (current) use of anticoagulants
CPT/HCPCS: 99213; 99214

== ENCOUNTER → 2022-12-01 16:00 | Outpatient (CLI) | payer OTHER, SELFPAY ==
[2022-10-10 17:05] VITALS: BMI 36.7
== END ==
PROVIDERS: PCP Family Medicine; Referring Provider Family Medicine; Visit Provider Surgery
DX: I87.2 Venous insufficiency (chronic) (peripheral) (principal); L89.622 Pressure ulcer of left heel, stage 2; L97.812 Non-pressure chronic ulcer of other part of right lower leg with fat layer exposed; L97.821 Non-pressure chronic ulcer of other part of left lower leg limited to breakdown of skin; L97.811 Non-pressure chronic ulcer of other part of right lower leg limited to breakdown of skin
CPT/HCPCS: 97597; 97598; 99213

== ENCOUNTER → 2022-12-01 16:08 | Outpatient (ROUT) | payer OTHER, SELFPAY ==
[2022-10-10 17:05] VITALS: BMI 36.7
[2022-12-01 16:21] LABS: INR 1.7 (0.9-1.3); Prothrombin Time 19.8 SECONDS (10.1-12.7)
== END ==
PROVIDERS: PCP Family Medicine; Visit Provider Family Medicine
DX: I48.91 Unspecified atrial fibrillation (principal)
CPT/HCPCS: 85610

== ENCOUNTER → 2022-12-15 13:44 | Outpatient (CLI) | payer OTHER, SELFPAY ==
[2022-10-10 17:05] VITALS: BMI 36.7
== END ==
PROVIDERS: PCP Family Medicine; Referring Provider Family Medicine; Visit Provider Surgery
DX: I87.2 Venous insufficiency (chronic) (peripheral) (principal); L97.812 Non-pressure chronic ulcer of other part of right lower leg with fat layer exposed; L97.822 Non-pressure chronic ulcer of other part of left lower leg with fat layer exposed; R20.9 Unspecified disturbances of skin sensation; R60.0 Localized edema; Z79.01 Long term (current) use of anticoagulants
CPT/HCPCS: 97597; 97598; 99212; 99213

== ENCOUNTER → 2022-12-15 15:49 | Outpatient (ROUT) | payer OTHER, SELFPAY ==
[2022-10-10 17:05] VITALS: BMI 36.7
[2022-12-15 16:10] LABS: INR 2.1 (0.9-1.3); Prothrombin Time 24.6 SECONDS (10.1-12.7)
== END ==
PROVIDERS: PCP Family Medicine; Visit Provider Family Medicine
DX: I48.91 Unspecified atrial fibrillation (principal)
CPT/HCPCS: 85610

== ENCOUNTER → 2022-12-22 14:02 | Outpatient (CLI) | payer OTHER, SELFPAY ==
[2022-10-10 17:05] VITALS: BMI 36.7
== END ==
PROVIDERS: PCP Family Medicine; Referring Provider Family Medicine; Visit Provider Surgery
DX: I87.2 Venous insufficiency (chronic) (peripheral) (principal); L97.812 Non-pressure chronic ulcer of other part of right lower leg with fat layer exposed; L97.822 Non-pressure chronic ulcer of other part of left lower leg with fat layer exposed
CPT/HCPCS: 11042; 11045; 87070; 87075; 87077; 87147; 87186; 87205; 97597; 97598; 99213

== ENCOUNTER → 2023-01-05 14:34 | Outpatient (ROUT) | payer OTHER, SELFPAY ==
[2022-10-10 17:05] VITALS: BMI 36.7
[2023-01-05 14:57] LABS: INR 3.7 (0.9-1.3); Prothrombin Time 43.6 SECONDS (10.1-12.7)
== END ==
PROVIDERS: PCP Family Medicine; Visit Provider Family Medicine
DX: L08.9 Local infection of the skin and subcutaneous tissue, unspecified (principal)
CPT/HCPCS: 85610

== ENCOUNTER → 2023-01-05 15:08 | Outpatient (CLI) | payer OTHER, SELFPAY ==
[2022-10-10 17:05] VITALS: BMI 36.7
--- NOTE | 2023-01-05 | OV.WND_ITS ---
Progress Note Details Patient Name: Jay Reed Patient Number: [id number] Clinician: Beatriz Stewart RN Patient Date of : 1945 Physician / Elastic Attacher Zigzag: Stanley Archibald Patient SUBJECTIVE Chief Complaint This information was obtained from the patient, chart Bilateral lower leg venous ulcers. Allergies Many oral antibiotics, Penicillins HPI This information was obtained from the patient The following HPI elements were documented for the patient's wound: Location: BLE Duration: 11/11/22, 10/18/22 Context: venous The patient is a 77 year old male with CHF, stage III CKD, AFib, and history VSU's who returns today for follow up of venous ulcers of both lower extremities. He has been receiving dressing changes with silver alginate and two-layer light compression. He has been receiving dressing changes twice a week with Home Health nursing in addition to dressing change at the wound center. The dressings were noted to be less bloody and grain drier when he presented to clinic today. He denies having any pain associated with the ulcers however the dressing changes are painful. He has not noted any redness or fever. Cultures grew MRSA and the patient completed a week of linezolid. The patient does report having a good appetite. Patient is on chronic anticoagulation. ABIs show flow adequate for healing. Labs drawn today revealed INR of 3.7, WBC 6.6, hemoglobin 10.8, HCT 33.6. LABS: 01/05/23: INR 3.7, WBC 6.6, hemoglobin 10.8, HCT 33.6 12/16/22: INR 2.1 10/15/22: WBC 9.4, hemoglobin 10.0, HCT 30.3 electrolytes normal, creatinine 1.29, GFR 57 Medical History This information was obtained from the patient, chart Patient has a medical history of: Congestive Heart Failure Hypertension Hearing Loss Poor vision Alcohol Abuse Depression Esophageal ulceration Gastro Esoph. Reflux Disease (GERD) Hypothyroidism mixed hyperlipidemia venous stasis Surgical History This information was obtained from the patient, chart Patient has a surgical history of: Tonsilectomy Eye surgery (as a child) status post appendectomy Additional Information Does patient have a history of Cancer? Yes? Complete all questions.: No OBJECTIVE Wound Assessment(s) Wound #5 Right, Lateral, Anterior Leg - lower is a Full Thickness Venous Ulcer and has received an outcome of Healed - no new wound(s). Initial wound encounter measurements are 0cm length x 0cm width with no measurable depth, with an area of 0 sq cm . No tunneling has been noted. No sinus tract has been noted. No undermining has been noted. There was no drainage noted. The patient reports a wound pain of level 0/10. The wound margin is attached. Wound bed has Yes epithelialization, No eschar, No slough, No granulation. The periwound skin moisture is normal. The periwound skin exhibited: Edema, Hemosiderosis. The temperature of the periwound skin is WNL. Periwound skin does not exhibit signs or symptoms of infection. Local Pulse is Normal. Wound #6 Right, Medial Leg is an acute Full Thickness Venous Ulcer and has received a status of Not Healed. Initial wound encounter measurements are 13.5cm length x 6.5cm width x 0.2cm depth, with an area of 87.75 sq cm and a volume of 17.55 cubic cm. Adipose is exposed. No tunneling has been noted. No sinus tract has been noted. No undermining has been noted. There is a large amount of sanguineous drainage noted which has no odor. The patient reports a wound pain of level 0/10. The wound margin is attached. Wound bed has Yes epithelialization, No eschar, Yes slough, Yes bright red, spongy granulation. The periwound skin moisture is normal. The periwound skin exhibited: Edema, Hemosiderosis. The temperature of the periwound skin is WNL. Local Pulse is Doppler. Wound #7 Left, Medial Leg is an acute Full Thickness Venous Ulcer and has received a status of Not Healed. Initial wound encounter measurements are 5.4cm length x 3.1cm width x 0.1cm depth, with an area of 16.74 sq cm and a volume of 1.674 cubic cm. Adipose is exposed. No tunneling has been noted. No sinus tract has been noted. No undermining has been noted. There is a large amount of sanguineous drainage noted which has no odor. The patient reports a wound pain of level 0/10. The wound margin is attached. Wound bed has Yes epithelialization, No eschar, Yes slough, Yes bright red, firm granulation. The periwound skin moisture is normal. The periwound skin exhibited: Edema, Hemosiderosis. The temperature of the periwound skin is WNL. Local Pulse is Doppler. Vitals Height/Length: 70 in (177.8 cm), Weight: 246.6 lbs (112.09 kgs), BMI: 35.4, Temperature: 97.8 F (36.56 C), Pulse: 61 bpm, Respiratory Rate: 20 breaths/min, Blood Pressure: 141/79 mmHg, Pulse Oximetry: 100 %. Physical Exam Constitutional Vital signs reviewed and noted. Well developed, well nourished, and in no acute distress. Alert and oriented x3. Respiratory: Slightly unlabored respirations. Integumentary (Hair, Skin) See wound assessment. Neurological: Sensation: Symmetric function by informal observation. Psychiatric: Orientation to time, place and person: Normal affect with normal thought pattern. Lower Extremity Assessment Edema Assessment: Left Extremity: Edema is present Compression Device In Use: Yes Device Used Correctly: Yes Compression Device Used: Coban II lite Calf Measurement 38 cm from heel with left measurement of 34 cm Ankle Measurement 12 cm from heel with left measurement of 23 cm Foot Measurement 11 cm from great toe with left measurement of 24 cm Right Extremity: Edema is present Compression Device In Use: Yes Device Used Correctly: Yes Compression Device Used: Coban II lite Calf Measurement 38 cm from heel with right measurement of 36 cm Ankle Measurement 12 cm from heel with right measurement of 24 cm Foot Measurement 11 cm from great toe with right measurement of 24 cm Vascular Assessment: Left Extremity colors, hair growth, and conditions: Extremity Color: Pigmented Hair Growth on Extremity: No Temperature of Extremity: Warm Capillary Refill: < 3 seconds Erythema: Yes Dependent Rubor: No Hyperpigmentation: Yes Lipodermatosclerosis: No Right Extremity colors, hair growth, and conditions: Extremity Color: Pigmented Hair Growth on Extremity: No Temperature of Extremity: Warm Capillary Refill: > 3 seconds Erythema: Yes Dependent Rubor: No Hyperpigmentation: Yes Lipodermatosclerosis: No Additional Information The patient's potential to heal is: fair. 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 (Encounter Diagnosis) L89.622 - Pressure ulcer of left heel, stage 2 (Encounter Diagnosis) L97.319 - Non-pressure chronic ulcer of right ankle with unspecified severity (Encounter Diagnosis) L97.329 - Non-pressure chronic ulcer of left ankle with unspecified severity (Encounter Diagnosis) I87.313 - Chronic venous hypertension (idiopathic) with ulcer of bilateral lower extremity General Notes: venous ulcer on anterior right lower extremity improved, large ulcers medial aspect of each ankle with slough and biofilm, measurements slightly improved The following factors have been identified it may affect wound healing: Devitalized tissue Bioburden Pressure Lower extremity edema Advanced age Immobility Goals: Remove devitalized tissue Remove and prevent biofilm Pressure offloading Reduce edema Wound closure Manage comorbidities Plan: We will not proceed with debridement today because of elevated INR, switch dressing changes with Hydrofera blue and Adaptic with two-layer light compression 3 times a week Encouraged protein supplementation. PROCEDURES Wound #6 Wound #6 (Venous Ulcer) is located on the right, medial leg. A Multilayer Compression procedure was performed for the lower right extremity by Nidhi Pressley MA. A 2 Layers Coban was applied with moderate 15-25 mmhg. The procedure was tolerated well with pain level of 0 throughout and a pain level of 0 following the procedure. General Notes: Coban 2 Lite compression wrap system applied as per commercial title examiner's recommendations. Wound #7 Wound #7 (Venous Ulcer) is located on the left, medial leg. A Multilayer Compression procedure was performed for the lower left extremity by Nidhi Pressley MA. A 2 Layers Coban was applied with moderate 15-25 mmhg. The procedure was tolerated well with pain level of 0 throughout and a pain level of 0 following the procedure. General Notes: Coban 2 Lite compression wrap system applied as per commercial title examiner's recommendations. PLAN Wound Orders: Wound #5 Right, Lateral, Anterior Leg - lower Anesthetic Topical Xylocaine to wound bed - Applied in clinic. Hygiene May shower with wound protected, using a cast protector or plastic bag and tape Cleanser Cleanse Wound with normal saline Dressings Primary dressing - Adaptic (or equivalent non-contact layer). Cover and secure with - Hydrofera blue ready transfer foam to cover, then super absorbent dressing (or equivalent). Change Dressing - [facility]- please change dressing and wrap every Thursday and until patient returns to clinic. Physician Review: Reviewed and evaluated labs. Discussed the Plan of Care @ bedside with Reviewed hospital records. I, as the physician, have reviewed the orders scribed by the center RN's and agree. Wound #6 Right, Medial Leg Anesthetic Topical Xylocaine to wound bed - Applied in clinic. Hygiene May shower with wound protected, using a cast protector or plastic bag and tape Cleanser Cleanse Wound with normal saline Dressings Primary dressing - Adaptic (or equivalent non-contact layer). Cover and secure with - Hydrofera blue ready transfer foam to cover, then super absorbent dressing (or equivalent). Change Dressing - [facility]- please change dressing and wrap every Thursday and until patient returns to clinic. Physician Review: Reviewed and evaluated labs. Discussed the Plan of Care @ bedside with Reviewed hospital records. I, as the physician, have reviewed the orders scribed by the center RN's and agree. Wound #7 Left, Medial Leg Anesthetic Topical Xylocaine to wound bed - Applied in clinic. Hygiene May shower with wound protected, using a cast protector or plastic bag and tape Cleanser Cleanse Wound with normal saline Dressings Primary dressing - Adaptic (or equivalent non-contact layer). Cover and secure with - Hydrofera blue ready transfer foam to cover, then super absorbent dressing (or equivalent). Change Dressing - [facility]- please change dressing and wrap every Thursday and until patient returns to clinic. Physician Review: Reviewed and evaluated labs. Discussed the Plan of Care @ bedside with Reviewed hospital records. I, as the physician, have reviewed the orders scribed by the [place] RN's and agree. Additional Orders: Off-Loading Other order - Please use the purple foam booties to offload your heels when you are sitting in your chair. Please wear the hua EHOB boot on your left foot when in bed at night. Compression/Edema Control Elevation of leg(s) above the level of the heart when sitting Avoid prolonged standing in one place Multi Layer Wrap - Do not get leg(s) with compression wrap wet. If wraps are too tight call the wound care center or remove if you are unable to reach the center. Please remove wraps for numbness, tingling, pain in legs or color changes in toes and call the clinic the same day. If symptoms do not resolve after removing wraps please go to the ER for evaluation. Local pharmacies carry plastic cast protectors that may be used for protection while showering. Compression Type: - Coban 2 Layer Lite compression wrap system bilaterally. Dietary Increased protein - Aids in wound healing. Other Instructions: - [facility]- please change dressing and wrap every Thursday and until patient returns to clinic. Follow-Up Appointments Return Appointment - One week. Other information: If you develop fever, chills, increased pain, drainage, redness or swelling please call our office. If after hours, respond to the ER. Should you experience any significant changes in your wound(s) or have any questions regarding your home care instructions please contact the wound center @ [phone]. If after hours, contact your primary care physician or go to the hospital emergency room. Scribing Attestation I attest, as the nurse, that I scribed these orders for the physician. Plan of Care: 01. ENSURE/ESTABLISH OPTIMAL BLOOD FLOW : - Complete lower extremity assessment - Perform non-invasive vascular testing (i.e. JAIME) and document findings. Consider repeating when wound healing <40% after 30 days of wound care. 02. ASSESS FOR/TREAT INFECTION : - Evaluate for signs and symptoms of infection and document findings. 03. DEBRIDE WEEKLY OR MORE OFTEN PRN : - Evaluate patient in center weekly to assess wound bed and margins for need for debridement. - Mechanical debridement: Stimulate and/or maintain acute phase of wound healing by reducing bacterial burden and devitalized/non-viable tissue. - Debridement by any method to remove devitalized/necrotic tissue to promote healing and prevent further complications. Goal is to stimulate and/or maintain acute phase of wound healing by reducing bacterial burden and devitalized/non-viable tissue. 04. OPTIMIZE GLUCOSE CONTROL and NUTRITION : - Order/review pertinent labs to evaluate renal function, glucose control, and nutritional status. - Complete a nutrition risk assessment. 05. OFFLOADING PLAN : - Evaluate plan for offloading - Advise patient to offload the foot ulcer. (i.e. half shoe, surgical shoe, insert, custom shoe, felt and foam, cam walker, multipodus splint, total contact cast, bi-valve cast, posterior splint). 06. OPTIMIZE HOST FACTORS: - Assess and review patient history for wound etiology, co-morbid conditions, medication regime, and smoking history. 07. DRESSING SELECTION : - Evaluate for dressing-related factors, such as availability, wear time, adaptability and use to better optimize wound healing and patient compliance. - Choose topical treatments and/or dressing based on wound type and appearance, periwound skin condition, wound size and depth, anatomic location, volume of exudate, edema in the lower extremities, and risk or presence of infection. - Educate the patient/family/caregiver to monitor dressing daily. Change dressing only as needed but never less frequently than weekly so that wound bed can be reassessed. 08. ADVANCED MODALITIES : - Evaluate for appropriateness of Cellular Tissue Product therapy. 09. FALL PREVENTION : - Complete fall assessment. 10. PAIN MANAGEMENT : - Complete pain assessment 11. MEASURABLE GOALS for Wound Healing and/or Hyperbaric Oxygen Therapy : - Less Drainage - Decrease Inflammation - Decrease pain - Decrease Wound Dimensions - Wound Closure - Improve quality of life 12. DURATION/FREQUENCY of Wound Care Visits : - 1x weekly for 30 days 13. OSTOMY : - Reviewed, not applicable Electronic Signature(s) Signed By: Date: Stanley Archibald MD 01/06/2023 08:27:56 (PT) Entered By: Stanley Archibald MD on 01/06/2023 08:27:14 (PT)
== END ==
PROVIDERS: PCP Family Medicine; Referring Provider Family Medicine; Visit Provider Surgery
DX: L08.9 Local infection of the skin and subcutaneous tissue, unspecified (principal); Z90.49 Acquired absence of other specified parts of digestive tract; I87.2 Venous insufficiency (chronic) (peripheral); L97.812 Non-pressure chronic ulcer of other part of right lower leg with fat layer exposed; L97.822 Non-pressure chronic ulcer of other part of left lower leg with fat layer exposed
CPT/HCPCS: 29581; 36415; 85025; 85610; 99213

== ENCOUNTER → 2023-01-05 16:07 | Outpatient (CLI) | payer OTHER, SELFPAY ==
[2022-10-10 17:05] VITALS: BMI 36.7
[2023-01-05 16:43] LABS: Add Manual Diff / Slide Review NO; Basophils Absolute Auto 0 /uL (0-100); Basophils Percent Auto 0.3 % (0-2); Eosinophils Absolute Auto 300 /uL (0-450); Eosinophils Percent Auto 4.9 % (2-4); Hematocrit 33.6 % (41-53); Hemoglobin 10.8 g/dL (13.5-17.5); Lymphocytes Absolute Auto 1600 /uL (1100-4500); Lymphocytes Percent Auto 25.1 % (25-40); Mean Corpuscular HGB Conc 32.1 % (30-36); Monocytes Absolute Auto 500 /uL (0-900); Monocytes Percent Auto 7.5 % (3-14); Neutrophils Absolute Auto 4100 /uL (1500-7000); Neutrophils Percent Auto 62.2 % (50-75); Platelet Count 58 X10^3/uL (150-400); Red Cell Distribution Width 17.1 % (11.6-14.8); White Blood Cell Count 6.6 X10^3/uL (4.5-11.0)
== END ==
PROVIDERS: PCP Family Medicine; Referring Provider Surgery; Visit Provider Surgery
DX: L08.9 Local infection of the skin and subcutaneous tissue, unspecified (principal); Z90.49 Acquired absence of other specified parts of digestive tract
CPT/HCPCS: 36415; 85025

== ENCOUNTER → 2023-01-12 14:03 | Outpatient (CLI) | payer OTHER, SELFPAY ==
[2022-10-10 17:05] VITALS: BMI 36.7
--- NOTE | 2023-01-12 | OV.WND_ITS ---
Progress Note Details Patient Name: Jay Reed Patient Number: [id number] Clinician: Beatriz Stewart RN Patient Date of : 1945 Physician / Improvement Engineer: Stanley Archibald Patient SUBJECTIVE Chief Complaint This information was obtained from the patient, chart Bilateral lower leg venous ulcers. Allergies Many oral antibiotics, Penicillins HPI This information was obtained from the patient The following HPI elements were documented for the patient's wound: Location: BLE Duration: 11/14/22, 10/18/22 Context: venous The patient is a 77 year old male with CHF, stage III CKD, AFib, and history VSU's who returns today for follow up of venous ulcers of both lower extremities. He has been receiving dressing changes with Hydrofera blue with Adaptic and two-layer light compression. He has been receiving dressing changes twice a week with Home Health nursing in addition to dressing change at the wound center. The patient is having less drainage. He denies having any pain associated with the ulcers however the dressing changes are painful. He has not noted any redness or fever. Cultures grew MRSA and the patient completed a week of linezolid. The patient does report having a good appetite. Patient is on chronic anticoagulation. ABIs show flow adequate for healing. No changes in overall health since last visit. LABS: 01/05/23: INR 3.7, WBC 6.6, hemoglobin 10.8, HCT 33.6 12/16/22: INR 2.1 10/15/22: WBC 9.4, hemoglobin 10.0, HCT 30.3 electrolytes normal, creatinine 1.29, GFR 57 Family History This information was obtained from the patient, chart Diabetes - Father, Heart Disease - Mother, Father, Stroke - Mother, Sibling Social History This information was obtained from the patient, chart Never smoker, Alcohol Use - None, Caffeine Use - 2-3/day, Children - 6, Lives in - Private home- mobile home, Marital Status - - Avani, Retired Medical History This information was obtained from the patient, chart Patient has a medical history of: Congestive Heart Failure Hypertension Hearing Loss Poor vision Alcohol Abuse Depression Esophageal ulceration Gastro Esoph. Reflux Disease (GERD) Hypothyroidism mixed hyperlipidemia venous stasis Surgical History This information was obtained from the patient, chart Patient has a surgical history of: Tonsilectomy Eye surgery (as a child) status post appendectomy Review of Systems (ROS) This information was obtained from the patient Complaints and Symptoms Patient complains of: General Notes: I have reviewed and concur with the Review of Systems and Past Family Social History documents completed by the clinician, I have reviewed and concur with the Wound Assessment document completed by the clinician Cardiovascular (Central): Dyspnea on Exertion Cardiovascular (Central/Peripheral): Lower extremity (leg) swelling Co-Morbid Conditions: Congestive Heart Failure, Venous Insuffiency Ear/Nose/Mouth/Throat: Hearing Loss / Aid Eyes: Vision Changes Hematologic/Lymphatic: Bleeding Tendency Integumentary (Hair/Skin/Nails): Open Sore Musculoskeletal: Assistive Devices Prior Wound History: Drainage, Erythema, Pain Patient denies complaints or symptoms related to: Cardiovascular (Central): Chest Pain Cardiovascular (Central/Peripheral): Intermittent Claudication, Lower extremity (leg) resting pain Constitutional Symptoms (General Health): Chills, Fever Hematologic/Lymphatic: Bleeding / Clotting Disorders Neurological: Loss of Protective Sensation Psychiatric: Memory Loss Respiratory: Shortness of Breath Additional Information Does patient have a history of Cancer? Yes? Complete all questions.: No OBJECTIVE Wound Assessment(s) Wound #6 Right, Medial Leg is an acute Full Thickness Venous Ulcer and has received a status of Not Healed. Initial wound encounter measurements are 13.4cm length x 6cm width x 0.2cm depth, with an area of 80.4 sq cm and a volume of 16.08 cubic cm. Adipose is exposed. No tunneling has been noted. No sinus tract has been noted. No undermining has been noted. There is a large amount of sanguineous drainage noted which has no odor. The patient reports a wound pain of level 0/10. The wound margin is attached. Wound bed has Yes epithelialization, No eschar, Yes slough, Yes bright red, spongy granulation. The periwound skin moisture is normal. The periwound skin exhibited: Edema, Hemosiderosis. The temperature of the periwound skin is Cool. Local Pulse is Doppler. Wound #7 Left, Medial Leg is an acute Full Thickness Venous Ulcer and has received a status of Not Healed. Initial wound encounter measurements are 4.8cm length x 2.6cm width x 0.1cm depth, with an area of 12.48 sq cm and a volume of 1.248 cubic cm. Adipose is exposed. No tunneling has been noted. No sinus tract has been noted. No undermining has been noted. There is a large amount of sanguineous drainage noted which has no odor. The patient reports a wound pain of level 0/10. The wound margin is attached. Wound bed has Yes epithelialization, No eschar, Yes slough, Yes bright red, spongy granulation. The periwound skin moisture is normal. The periwound skin exhibited: Edema, Hemosiderosis. The temperature of the periwound skin is Cool. Local Pulse is Doppler. Vitals Height/Length: 70 in (177.8 cm), Weight: 250.7 lbs (113.95 kgs), BMI: 36, Temperature: 98.0 ?F (36.67 ?C), Pulse: 73 bpm, Respiratory Rate: 20 breaths/min, Blood Pressure: 97/59 mmHg, Pulse Oximetry: 100 %. Physical Exam Constitutional Vital signs reviewed and noted. Well developed, well nourished, and in no acute distress. Alert and oriented x3. Respiratory: Slightly layered respirations. Integumentary (Hair, Skin) See wound assessment. Neurological: Sensation: Symmetric function by informal observation. Psychiatric: Orientation to time, place and person: Normal affect with normal thought pattern. Lower Extremity Assessment Edema Assessment: Left Extremity: Edema is present Compression Device In Use: Yes Device Used Correctly: Yes Compression Device Used: Coban II lite Calf Measurement 38 cm from heel with left measurement of 35 cm Ankle Measurement 12 cm from heel with left measurement of 23 cm Foot Measurement 11 cm from great toe with left measurement of 23.5 cm Right Extremity: Edema is present Compression Device In Use: Yes Device Used Correctly: Yes Compression Device Used: Coban II lite Calf Measurement 38 cm from heel with right measurement of 36.5 cm Ankle Measurement 12 cm from heel with right measurement of 24.5 cm Foot Measurement 11 cm from great toe with right measurement of 24 cm Vascular Assessment: Left Extremity colors, hair growth, and conditions: Extremity Color: Pigmented Hair Growth on Extremity: No Temperature of Extremity: Warm Capillary Refill: < 3 seconds Erythema: Yes Dependent Rubor: No Hyperpigmentation: Yes Lipodermatosclerosis: No Right Extremity colors, hair growth, and conditions: Extremity Color: Pigmented Hair Growth on Extremity: No Temperature of Extremity: Warm Capillary Refill: > 3 seconds Erythema: Yes Dependent Rubor: No Hyperpigmentation: Yes Lipodermatosclerosis: No Additional Information The patient's potential to heal is: good. Limited to breakdown of skin: No Limited to breakdown of skin: No ASSESSMENT Active Problems ICD-10 (Encounter Diagnosis) L97.212 - Non-pressure chronic ulcer of right calf with fat layer exposed (Encounter Diagnosis) L89.622 - Pressure ulcer of left heel, stage 2 (Encounter Diagnosis) L97.319 - Non-pressure chronic ulcer of right ankle with unspecified severity (Encounter Diagnosis) L97.329 - Non-pressure chronic ulcer of left ankle with unspecified severity (Encounter Diagnosis) I87.313 - Chronic venous hypertension (idiopathic) with ulcer of bilateral lower extremity General Notes: venous ulcer on anterior right lower extremity improved, large ulcers medial aspect of each ankle, large amount of slough, measurements much improved The following factors have been identified it may affect wound healing: Devitalized tissue Bioburden Pressure Lower extremity edema Advanced age Immobility Goals: Remove devitalized tissue Remove and prevent biofilm Pressure offloading Reduce edema Wound closure Manage comorbidities Plan: Debridement, continue dressing changes with Hydrofera blue and Adaptic with two- layer light compression 3 times a week, encouraged protein supplementation. PROCEDURES Wound #6 Wound #6 (Venous Ulcer) is located on the right, medial leg. A selective debridement with a total area debrided of 80.4 sq cm was performed by Stanley Archibald MD. Epidermis was removed along with devitalized tissue: biofilm, exudate, and slough. The following instrument(s) were used: curette. Pain control was achieved using 4% Lido. A time out was conducted prior to the start of the procedure. A moderate amount of bleeding was controlled with pressure. The procedure was tolerated well with a pain level of 4 throughout and a pain level of 2 following the procedure. Post Debridement Measurements: 13.4cm length x 6cm width x 0.2cm depth; with an area of 80.4 sq cm and a volume of 16.08 cubic cm; Wound #6 (Venous Ulcer) is located on the right, medial leg. A Multilayer Compression procedure was performed for the lower right extremity by Nidhi Pressley MA. A 2 Layers Coban was applied with moderate 15-25 mmhg. The procedure was tolerated well with pain level of 0 throughout and a pain level of 0 following the procedure. General Notes: Coban 2 Lite compression wrap system applied as per wet roller's recommendations. Wound #7 Wound #7 (Venous Ulcer) is located on the left, medial leg. A selective debridement with a total area debrided of 12.48 sq cm was performed by Stanley Archibald MD. Epidermis was removed along with devitalized tissue: biofilm, exudate, and slough. The following instrument(s) were used: curette. Pain control was achieved using 4% Lido. A time out was conducted prior to the start of the procedure. A minimal amount of bleeding was controlled with pressure. The procedure was tolerated well with a pain level of 4 throughout and a pain level of 2 following the procedure. Post Debridement Measurements: 4.8cm length x 2.6cm width x 0.1cm depth; with an area of 12.48 sq cm and a volume of 1.248 cubic cm; Wound #7 (Venous Ulcer) is located on the left, medial leg. A Multilayer Compression procedure was performed for the lower left extremity by Nidhi Pressley MA. A 2 Layers Coban was applied with moderate 15-25 mmhg. The procedure was tolerated well with pain level of 0 throughout and a pain level of 0 following the procedure. General Notes: Coban 2 Lite compression wrap system applied as per wet roller's recommendations. PLAN Wound Orders: Wound #6 Right, Medial Leg Anesthetic Topical Xylocaine to wound bed - Applied in clinic. Hygiene May shower with wound protected, using a cast protector or plastic bag and tape Cleanser Cleanse Wound with normal saline Dressings Primary dressing - Adaptic (or equivalent non-contact layer). Cover and secure with - Hydrofera blue ready transfer foam to cover, then super absorbent dressing (or equivalent). Change Dressing - [facility]- please change dressing and wrap every Thursday and until patient returns to clinic. Physician Review: Reviewed and evaluated labs. Discussed the Plan of Care @ bedside with Reviewed hospital records. I, as the physician, have reviewed the orders scribed by the center RN's and agree. Wound #7 Left, Medial Leg Anesthetic Topical Xylocaine to wound bed - Applied in clinic. Hygiene May shower with wound protected, using a cast protector or plastic bag and tape Cleanser Cleanse Wound with normal saline Dressings Primary dressing - Adaptic (or equivalent non-contact layer). Cover and secure with - Hydrofera blue ready transfer foam to cover, then super absorbent dressing (or equivalent). Change Dressing - [facility]- please change dressing and wrap every Thursday and until patient returns to clinic. Physician Review: Reviewed and evaluated labs. Discussed the Plan of Care @ bedside with Reviewed hospital records. I, as the physician, have reviewed the orders scribed by the center RN's and agree. Additional Orders: Off-Loading Other order - Please use the purple foam booties to offload your heels when you are sitting in your chair. Please wear the hua EHOB boot on your left foot when in bed at night. Compression/Edema Control Elevation of leg(s) above the level of the heart when sitting Avoid prolonged standing in one place Multi Layer Wrap - Do not get leg(s) with compression wrap wet. If wraps are too tight call the wound care center or remove if you are unable to reach the center. Please remove wraps for numbness, tingling, pain in legs or color changes in toes and call the clinic the same day. If symptoms do not resolve after removing wraps please go to the ER for evaluation. Local pharmacies carry plastic cast protectors that may be used for protection while showering. Compression Type: - Coban 2 Layer Lite compression wrap system bilaterally. Dietary Increased protein - Aids in wound healing. Other Instructions: - [facility]- please change dressing and wrap every Thursday and until patient returns to clinic. Follow-Up Appointments Return Appointment - 01/22/23 @ 3:15pm. Other information: If you develop fever, chills, increased pain, drainage, redness or swelling please call our office. If after hours, respond to the ER. Should you experience any significant changes in your wound(s) or have any questions regarding your home care instructions please contact the wound center @ [phone]. If after hours, contact your primary care physician or go to the hospital emergency room. Scribing Attestation I attest, as the nurse, that I scribed these orders for the physician. Plan of Care: 01. ENSURE/ESTABLISH OPTIMAL BLOOD FLOW : - Complete lower extremity assessment - Perform non-invasive vascular testing (i.e. JAIME) and document findings. Consider repeating when wound healing <40% after 30 days of wound care. 02. ASSESS FOR/TREAT INFECTION : - Evaluate for signs and symptoms of infection and document findings. 03. DEBRIDE WEEKLY OR MORE OFTEN PRN : - Evaluate patient in center weekly to assess wound bed and margins for need for debridement. - Mechanical debridement: Stimulate and/or maintain acute phase of wound healing by reducing bacterial burden and devitalized/non-viable tissue. - Debridement by any method to remove devitalized/necrotic tissue to promote healing and prevent further complications. Goal is to stimulate and/or maintain acute phase of wound healing by reducing bacterial burden and devitalized/non-viable tissue. 04. OPTIMIZE GLUCOSE CONTROL and NUTRITION : - Order/review pertinent labs to evaluate renal function, glucose control, and nutritional status. - Complete a nutrition risk assessment. 05. OFFLOADING PLAN : - Evaluate plan for offloading - Advise patient to offload the foot ulcer. (i.e. half shoe, surgical shoe, insert, custom shoe, felt and foam, cam walker, multipodus splint, total contact cast, bi-valve cast, posterior splint). 06. OPTIMIZE HOST FACTORS: - Assess and review patient history for wound etiology, co-morbid conditions, medication regime, and smoking history. 07. DRESSING SELECTION : - Evaluate for dressing-related factors, such as availability, wear time, adaptability and use to better optimize wound healing and patient compliance. - Choose topical treatments and/or dressing based on wound type and appearance, periwound skin condition, wound size and depth, anatomic location, volume of exudate, edema in the lower extremities, and risk or presence of infection. - Educate the patient/family/caregiver to monitor dressing daily. Change dressing only as needed but never less frequently than weekly so that wound bed can be reassessed. 08. ADVANCED MODALITIES : - Evaluate for appropriateness of Cellular Tissue Product therapy. 09. FALL PREVENTION : - Complete fall assessment. 10. PAIN MANAGEMENT : - Complete pain assessment 11. MEASURABLE GOALS for Wound Healing and/or Hyperbaric Oxygen Therapy : - Less Drainage - Decrease Inflammation - Decrease pain - Decrease Wound Dimensions - Wound Closure - Improve quality of life 12. DURATION/FREQUENCY of Wound Care Visits : - 1x weekly for 30 days 13. OSTOMY : - Reviewed, not applicable Electronic Signature(s) Signed By: Date: Stanley Archibald MD 01/12/2023 15:44:40 (PT) Entered By: Stanley Archibald MD on 01/12/2023 15:44:17 (PT)
== END ==
PROVIDERS: PCP Family Medicine; Referring Provider Family Medicine; Visit Provider Surgery
DX: I87.2 Venous insufficiency (chronic) (peripheral) (principal); L97.812 Non-pressure chronic ulcer of other part of right lower leg with fat layer exposed; L97.822 Non-pressure chronic ulcer of other part of left lower leg with fat layer exposed; Z79.01 Long term (current) use of anticoagulants; B95.62 Methicillin resistant Staphylococcus aureus infection as the cause of diseases classified elsewhere
CPT/HCPCS: 97597; 97598; 99213

== ENCOUNTER → 2023-01-22 15:17 | Outpatient (CLI) | payer OTHER, SELFPAY ==
[2022-10-10 17:05] VITALS: BMI 36.7
== END ==
PROVIDERS: PCP Family Medicine; Referring Provider Family Medicine; Visit Provider Surgery
DX: I87.2 Venous insufficiency (chronic) (peripheral) (principal); L97.812 Non-pressure chronic ulcer of other part of right lower leg with fat layer exposed; L97.822 Non-pressure chronic ulcer of other part of left lower leg with fat layer exposed; R60.0 Localized edema
CPT/HCPCS: 11042; 11045

== ENCOUNTER → 2023-02-02 16:02 | Outpatient (ROUT) | payer OTHER, SELFPAY ==
[2022-10-10 17:05] VITALS: BMI 36.7
[2023-02-02 17:32] LABS: INR 1.3 (0.9-1.3); Prothrombin Time 14.4 SECONDS (10.1-12.7)
== END ==
PROVIDERS: PCP Family Medicine; Visit Provider Family Medicine
DX: I48.91 Unspecified atrial fibrillation (principal)
CPT/HCPCS: 85610

== ENCOUNTER → 2023-02-09 14:16 | Outpatient (CLI) | payer OTHER, SELFPAY ==
[2022-10-10 17:05] VITALS: BMI 36.7
== END ==
PROVIDERS: PCP Family Medicine; Referring Provider Family Medicine; Visit Provider Surgery
DX: I87.2 Venous insufficiency (chronic) (peripheral) (principal); L97.812 Non-pressure chronic ulcer of other part of right lower leg with fat layer exposed; L97.822 Non-pressure chronic ulcer of other part of left lower leg with fat layer exposed; R60.0 Localized edema
CPT/HCPCS: 97597; 97598; 99212; 99213

== ENCOUNTER → 2023-03-02 14:16 | Outpatient (CLI) | payer OTHER, SELFPAY ==
[2022-10-10 17:05] VITALS: BMI 36.7
== END ==
PROVIDERS: PCP Family Medicine; Referring Provider Family Medicine; Visit Provider Surgery
DX: I87.2 Venous insufficiency (chronic) (peripheral) (principal); L97.812 Non-pressure chronic ulcer of other part of right lower leg with fat layer exposed
CPT/HCPCS: 11042; 11045

== ENCOUNTER → 2023-03-16 14:02 | Outpatient (CLI) | payer OTHER, SELFPAY ==
[2022-10-10 17:05] VITALS: BMI 36.7
== END ==
PROVIDERS: PCP Family Medicine; Referring Provider Family Medicine; Visit Provider Surgery
DX: I87.2 Venous insufficiency (chronic) (peripheral) (principal); L97.812 Non-pressure chronic ulcer of other part of right lower leg with fat layer exposed; R60.0 Localized edema; L89.622 Pressure ulcer of left heel, stage 2; Z79.01 Long term (current) use of anticoagulants
CPT/HCPCS: 17250; 29581; 99212; 99213

== ENCOUNTER → 2023-03-23 14:58 | Outpatient (CLI) | payer OTHER, SELFPAY ==
[2022-10-10 17:05] VITALS: BMI 36.7
== END ==
PROVIDERS: PCP Family Medicine; Referring Provider Family Medicine; Visit Provider Surgery
DX: I87.2 Venous insufficiency (chronic) (peripheral) (principal); L97.812 Non-pressure chronic ulcer of other part of right lower leg with fat layer exposed; R60.0 Localized edema
CPT/HCPCS: 11042

== ENCOUNTER → 2023-04-13 14:29 | Outpatient (CLI) | payer OTHER, SELFPAY ==
[2022-10-10 17:05] VITALS: BMI 36.7
== END ==
PROVIDERS: PCP Family Medicine; Referring Provider Family Medicine; Visit Provider Surgery
DX: I87.2 Venous insufficiency (chronic) (peripheral) (principal); L97.812 Non-pressure chronic ulcer of other part of right lower leg with fat layer exposed; R60.0 Localized edema; M79.604 Pain in right leg
CPT/HCPCS: 11042

== ENCOUNTER → 2023-04-27 14:58 | Outpatient (CLI) | payer OTHER, SELFPAY ==
[2022-10-10 17:05] VITALS: BMI 36.7
== END ==
PROVIDERS: PCP Family Medicine; Referring Provider Family Medicine; Visit Provider Surgery
DX: I87.2 Venous insufficiency (chronic) (peripheral) (principal); L97.822 Non-pressure chronic ulcer of other part of left lower leg with fat layer exposed; R60.0 Localized edema
CPT/HCPCS: 17250; 29581; 99212; 99213

== ENCOUNTER → 2023-05-04 15:48 | Outpatient (ROUT) | payer OTHER, SELFPAY ==
[2022-10-10 17:05] VITALS: BMI 36.7
[2023-05-04 16:16] LABS: INR 1.6 (0.9-1.3)
== END ==
PROVIDERS: PCP Family Medicine; Visit Provider Family Medicine
DX: I48.91 Unspecified atrial fibrillation (principal)
CPT/HCPCS: 85610

== ENCOUNTER → 2023-05-18 13:54 | Outpatient (CLI) | payer OTHER, SELFPAY ==
[2022-10-10 17:05] VITALS: BMI 36.7
== END ==
PROVIDERS: PCP Family Medicine; Referring Provider Family Medicine; Visit Provider Surgery
DX: I87.2 Venous insufficiency (chronic) (peripheral) (principal); L97.812 Non-pressure chronic ulcer of other part of right lower leg with fat layer exposed; L97.822 Non-pressure chronic ulcer of other part of left lower leg with fat layer exposed; R60.0 Localized edema; Z79.01 Long term (current) use of anticoagulants
CPT/HCPCS: 11042

== ENCOUNTER → 2023-05-25 13:11 | Outpatient (CLI) | payer OTHER, SELFPAY ==
[2022-10-10 17:05] VITALS: BMI 36.7
== END ==
PROVIDERS: PCP Family Medicine; Referring Provider Family Medicine; Visit Provider Surgery
DX: I87.2 Venous insufficiency (chronic) (peripheral) (principal); L97.812 Non-pressure chronic ulcer of other part of right lower leg with fat layer exposed; L89.622 Pressure ulcer of left heel, stage 2; R60.0 Localized edema; L97.822 Non-pressure chronic ulcer of other part of left lower leg with fat layer exposed
CPT/HCPCS: 11042; 87070; 87075; 87077; 87147; 87186; 87205; 99213

== ENCOUNTER → 2023-06-08 14:00 | Outpatient (CLI) | payer OTHER, SELFPAY ==
[2022-10-10 17:05] VITALS: BMI 36.7
== END ==
PROVIDERS: PCP Family Medicine; Referring Provider Family Medicine; Visit Provider Surgery
DX: I87.2 Venous insufficiency (chronic) (peripheral) (principal); L97.812 Non-pressure chronic ulcer of other part of right lower leg with fat layer exposed; L97.822 Non-pressure chronic ulcer of other part of left lower leg with fat layer exposed; R60.0 Localized edema; L98.8 Other specified disorders of the skin and subcutaneous tissue
CPT/HCPCS: 11042

== ENCOUNTER → 2023-06-15 15:01 | Outpatient (ROUT) | payer OTHER, SELFPAY ==
[2022-10-10 17:05] VITALS: BMI 36.7
[2023-06-15 15:19] LABS: INR 1.3 (0.9-1.3); Prothrombin Time 15.4 SECONDS (10.1-12.7)
== END ==
PROVIDERS: PCP Family Medicine; Visit Provider Family Medicine
DX: I48.91 Unspecified atrial fibrillation (principal)
CPT/HCPCS: 85610

== ENCOUNTER → 2023-06-29 14:44 | Outpatient (CLI) | payer OTHER, SELFPAY ==
[2022-10-10 17:05] VITALS: BMI 36.7
== END ==
PROVIDERS: PCP Family Medicine; Referring Provider Family Medicine; Visit Provider Surgery
DX: I87.2 Venous insufficiency (chronic) (peripheral) (principal); L97.812 Non-pressure chronic ulcer of other part of right lower leg with fat layer exposed; L97.822 Non-pressure chronic ulcer of other part of left lower leg with fat layer exposed; R60.0 Localized edema
CPT/HCPCS: 11042; 99213

== ENCOUNTER → 2023-07-13 14:58 | Outpatient (CLI) | payer OTHER, SELFPAY ==
[2022-10-10 17:05] VITALS: BMI 36.7
== END ==
PROVIDERS: PCP Family Medicine; Referring Provider Family Medicine; Visit Provider Surgery
DX: I87.2 Venous insufficiency (chronic) (peripheral) (principal); L97.812 Non-pressure chronic ulcer of other part of right lower leg with fat layer exposed; L97.822 Non-pressure chronic ulcer of other part of left lower leg with fat layer exposed; L98.8 Other specified disorders of the skin and subcutaneous tissue; R60.0 Localized edema
CPT/HCPCS: 11042; 87070; 87075; 87077; 87147; 87186; 87205; 99213

== ENCOUNTER → 2023-07-27 14:19 | Outpatient (CLI) | payer OTHER, SELFPAY ==
[2022-10-10 17:05] VITALS: BMI 36.7
== END ==
PROVIDERS: PCP Family Medicine; Referring Provider Family Medicine; Visit Provider Surgery
DX: I87.2 Venous insufficiency (chronic) (peripheral) (principal); L97.812 Non-pressure chronic ulcer of other part of right lower leg with fat layer exposed; L97.822 Non-pressure chronic ulcer of other part of left lower leg with fat layer exposed; L97.522 Non-pressure chronic ulcer of other part of left foot with fat layer exposed; R60.0 Localized edema; L98.8 Other specified disorders of the skin and subcutaneous tissue; L97.512 Non-pressure chronic ulcer of other part of right foot with fat layer exposed
CPT/HCPCS: 11042; 99213

== ENCOUNTER → 2023-08-10 14:29 | Outpatient (CLI) | payer OTHER, SELFPAY ==
[2022-10-10 17:05] VITALS: BMI 36.7
== END ==
PROVIDERS: PCP Family Medicine; Referring Provider Family Medicine; Visit Provider Surgery
DX: I87.2 Venous insufficiency (chronic) (peripheral) (principal); L97.812 Non-pressure chronic ulcer of other part of right lower leg with fat layer exposed; L97.822 Non-pressure chronic ulcer of other part of left lower leg with fat layer exposed; L97.512 Non-pressure chronic ulcer of other part of right foot with fat layer exposed; L97.522 Non-pressure chronic ulcer of other part of left foot with fat layer exposed; R60.0 Localized edema
CPT/HCPCS: 11042; 97597

== ENCOUNTER → 2023-08-24 14:57 | Outpatient (CLI) | payer OTHER, SELFPAY ==
[2022-10-10 17:05] VITALS: BMI 36.7
== END ==
PROVIDERS: PCP Family Medicine; Referring Provider Family Medicine; Visit Provider Physician Assistant
DX: L97.319 Non-pressure chronic ulcer of right ankle with unspecified severity (principal); L97.329 Non-pressure chronic ulcer of left ankle with unspecified severity; I87.313 Chronic venous hypertension (idiopathic) with ulcer of bilateral lower extremity; L97.522 Non-pressure chronic ulcer of other part of left foot with fat layer exposed; L97.909 Non-pressure chronic ulcer of unspecified part of unspecified lower leg with unspecified severity
CPT/HCPCS: 11042; 29581; 87070; 87075; 87077; 87147; 87186; 87205; 99212; 99214

== ENCOUNTER → 2023-09-07 13:20 | Outpatient (CLI) | payer OTHER, SELFPAY ==
[2022-10-10 17:05] VITALS: BMI 36.7
--- NOTE | 2023-09-29 16:29 | PC.RNWOUND ---
Wound Care Note Patient seen by Dr. Archibald, mechanical debridement done. Legs washed with wet wash clothes. Wounds scattered over bilateral lower extremities, present as ruptured blisters, red/pink granulation tissue and slough noted in wound bed, moist/macerated periwound. Large amount of serous drainage. Dressing: Curad oil emulsion dressing covering all open areas, followed by hydrofera blue ready transfer foam, then ABD pads to cover, secured with kerlix. Tubular compression stocking size F to bilateral lower legs. Change QOD or more frequently if drainage strike through is noted on bandages. Tubular compression can be off while patient is in bed with legs elevated.
== END ==
PROVIDERS: PCP Family Medicine; Referring Provider Family Medicine; Visit Provider Surgery
DX: I87.2 Venous insufficiency (chronic) (peripheral) (principal); L97.812 Non-pressure chronic ulcer of other part of right lower leg with fat layer exposed; L97.822 Non-pressure chronic ulcer of other part of left lower leg with fat layer exposed; R60.0 Localized edema; S91.105A Unspecified open wound of left lesser toe(s) without damage to nail, initial encounter; S80.211A Abrasion, right knee, initial encounter; L89.893 Pressure ulcer of other site, stage 3; L97.821 Non-pressure chronic ulcer of other part of left lower leg limited to breakdown of skin
CPT/HCPCS: 11042; 97597; 97598; 99213

== ENCOUNTER → 2023-09-07 15:50 | Outpatient (CLI) | payer OTHER, SELFPAY ==
[2022-10-10 17:05] VITALS: BMI 36.7
--- NOTE | 2023-09-07 15:58 | DI.RAD.S_ITS ---
PROCEDURE: XR FOOT LT MIN 3V INDICATIONS: chronic wound 2nd digit, new wound 3rd digit TECHNIQUE: 3 views of the foot were acquired. COMPARISON: None. FINDINGS: Evaluation is markedly limited secondary to patient positioning. Bones: No definite fracture or dislocation. Query osteolysis of the 3rd distal phalanx. The middle and distal phalanges of the 2nd digit are not well seen secondary to hyperflexion. No suspicious bony lesions. Soft tissues: No tibiotalar joint effusion. Achilles tendon appears normal. Tiny Achilles calcaneal enthesophyte. IMPRESSION: Evaluation is markedly limited secondary to patient positioning. 1. No definitive acute bony abnormality. 2. Query osteolysis of the 3rd distal phalanx. The middle and distal phalanges of the 2nd digit are not well seen. No suspicious bony lesions. If there is high clinical suspicion for osteomyelitis, consider MRI for further evaluation. Dictated by: Junior Pineda M.D. on 09/07/2023 at 16:53 Approved by: Junior Pineda M.D. on 09/07/2023 at 17:08
[2023-09-07 17:21] LABS: INR 2.7 (0.9-1.3); Prothrombin Time 31.4 SECONDS (9.4-12.5)
== END ==
PROVIDERS: PCP Family Medicine; Referring Provider Physician Assistant; Visit Provider Physician Assistant
DX: I48.91 Unspecified atrial fibrillation (principal); I87.2 Venous insufficiency (chronic) (peripheral); L97.812 Non-pressure chronic ulcer of other part of right lower leg with fat layer exposed; L97.822 Non-pressure chronic ulcer of other part of left lower leg with fat layer exposed; R60.0 Localized edema; S91.105A Unspecified open wound of left lesser toe(s) without damage to nail, initial encounter; S80.211A Abrasion, right knee, initial encounter; L89.893 Pressure ulcer of other site, stage 3; L97.821 Non-pressure chronic ulcer of other part of left lower leg limited to breakdown of skin
CPT/HCPCS: 11042; 36415; 73630; 85610; 97597; 97598; 99213

== ENCOUNTER 2023-09-28 16:26 | Inpatient (IN) | payer OTHER, SELFPAY ==
[2022-10-10 17:05] VITALS: BMI 36.7
[2023-09-28] VITALS (77 sets, daily range): BP systolic 93–174; BP diastolic 51–106; PULSE 30–104; RESP 10–38; TEMP 31–35.9; O2SAT 80–100; BMI 37.5
--- NOTE | 2023-09-28 16:48 | DI.RAD.S_ITS ---
PROCEDURE: XR CHEST 1V INDICATIONS: shortness of breath TECHNIQUE: One view of the chest was acquired. COMPARISON: [facility], CR, XR CHEST 1V, 07/01/2022, 8:40. [facility], CR, XR CHEST 1V, 10/10/2022, 15:19. FINDINGS: Surgical changes and devices: None. Lungs and pleura: Bilateral perihilar interstitial type infiltrate can be seen. Mediastinum: Mediastinal contours appear normal. Heart size is mildly enlarged. Bones and chest wall: No suspicious bony lesions. Age-appropriate bony degenerative changes are seen. Overlying soft tissues appear unremarkable. IMPRESSION: Bilateral perihilar interstitial type infiltrate and cardiomegaly. CHF is suspected. MRI, please consider atypical infection (including COVID pneumonia). Dictated by: Zac Nichole M.D. on 09/28/2023 at 16:31 Approved by: Zac Nichole M.D. on 09/28/2023 at 16:32
[2023-09-28 17:17] LABS: Prothrombin Time 58.6 SECONDS (9.4-12.5)
--- NOTE | 2023-09-28 17:18 | ED_ITS ---
HPI - SOB/Dyspnea General Chief Complaint: Shortness of Breath/Dyspnea Stated Complaint: SOB/retaining water/swollen legs Time Seen by Provider: 09/28/23 17:16 Source: patient and family Mode of arrival: Wheelchair Limitations: other Related Data Home Medications Medication Instructions Recorded Confirmed naphazoline 0.025 %-pheniramine 1 drp EYE-BOTH QID PRN Allergy 07/03/22 10/10/22 0.3 % eye drops (Naphcon-A) Symptoms furosemide 20 mg tablet (Lasix) 80 mg PO BID 10/10/22 10/10/22 Previous Rx's Medication Instructions Recorded pantoprazole 40 mg tablet,delayed 40 mg PO DAILY #30 tabs 03/03/21 release pravastatin 20 mg tablet 40 mg (2 x 20 mg) PO BEDTIME #30 03/03/21 tabs tamsulosin 0.4 mg capsule (Flomax) 0.8 mg (2 x 0.4 mg) PO DAILY #60 07/28/21 caps potassium chloride 20 mEq 40 meq (2 x 20 mEq) PO DAILYCC #30 11/01/21 tablet,extended tabs release(part/cryst) (Klor-Con M) digoxin 125 mcg (0.125 mg) tablet 0.125 mg PO Q48H #60 tabs 07/04/22 magnesium oxide 400 mg (241.3 mg 400 mg PO DAILY #30 tabs 07/04/22 magnesium) tablet metoprolol succinate 50 mg 25 mg (1/2 x 50 mg) PO BID #90 tabs 07/04/22 tablet,extended release 24 hr bacitracin 500 unit/gram topical 1 applic topical BID #30 grams 10/16/22 ointment hydrocodone 5 mg-acetaminophen 325 1 tab PO Q4H PRN Pain, Moderate 10/16/22 mg tablet (4-6) #30 tabs levothyroxine 137 mcg tablet 137 mcg PO 0600 #30 tabs 10/16/22 melatonin 3 mg tablet 3 mg PO BEDTIME #30 tabs 10/16/22 naloxone 0.4 mg/mL injection 0.2 mg (0.5 mL) IV Q2MIN PRN 10/16/22 solution Opiate Reversal #12 mL silver sulfadiazine 1 % topical 1 applic topical DAILY #30 grams 10/16/22 cream (Silvadene) warfarin 5 mg tablet 5 mg PO DAILY@1700 #30 tabs 10/16/22 cefpodoxime 200 mg tablet 400 mg (2 x 200 mg) PO BID #28 tabs 08/26/23 Allergies Allergy/AdvReac Type Severity Reaction Status Date / Time Penicillins [PENICILLINS] AdvReac Intermediate Gastrointestinal Verified 10/10/22 11:07 Upset Patient History Medical History Alcohol abuse Congestive heart failure Depression Esophageal ulceration Essential hypertension GERD (gastroesophageal reflux disease) Hypothyroidism Mixed hyperlipidemia Venous stasis Surgical History Status post appendectomy Family History Other Congestive heart failure Social History household members: spouse Smoking Status: Never smoker alcohol intake: never Smoking Status: Never smoker alcohol intake frequency: 0-2 drinks per day Substance Use Type: does not use Exam Initial Vital Signs Initial Vital Signs: Vital Signs Pulse Rate 62 09/28/23 16:41 Blood Pressure 174/85 H 09/28/23 16:41 Pulse Oximetry 93 09/28/23 16:41 Course Orders Ordered: ED Orders 09/28/23 16:48 XR chest 1V Stat EKG-12 Lead Stat 09/28/23 16:56 BNP [NT-proBNP (BNP-Adult 18+)] Stat Complete Blood Count AUTO DIFF Stat Comprehensive Metabolic Panel Stat Lipase Stat Magnesium Stat PTT Partial Thromboplastin [place] Stat Prothrombin Time INR Stat Troponin & CK Cardiac Panel Stat 09/28/23 17:10 Respiratory Panel (Film Array) Stat 09/28/23 17:17 Prothrombin Time INR Stat 09/28/23 17:36 Blood Culture Stat Lactate (Lactic Acid) Stat Procalcitonin Stat 09/28/23 17:37 Urinalysis and Microscopic Stat 09/28/23 17:50 Digoxin Stat Discontinued Medications Atropine Sulfate (Atropine 0.4 Mg/Ml Vial) 0.25 mg IV NOW ONE Stop: 09/28/23 17:19 Last Admin: 09/28/23 17:45 Dose: Not Given Documented By: MPO Atropine Sulfate (Atropine 1 Mg/10 Ml Syringe) 0.5 mg IV NOW ONE Stop: 09/28/23 17:27 Last Admin: 09/28/23 17:28 Dose: 0.5 mg Documented By: ISABELA Furosemide 60 mg/ Sodium (Chloride) 56 mls @ 112 mls/hr IV NOW ONE Stop: 09/28/23 17:18 Last Admin: 09/28/23 17:44 Dose: Not Given Documented By: VANE Furosemide 80 mg/ Sodium (Chloride) 58 mls @ 116 mls/hr IV NOW ONE Stop: 09/28/23 17:20 Last Infusion: 09/28/23 17:58 Dose: Infused Documented By: Admin: 09/28/23 17:27 Dose: 116 mls/hr Documented By: ISABELA Ceftriaxone Sodium 2,000 mg/ (Sodium Chloride) 100 mls @ 200 mls/hr IV NOW ONE Stop: 09/28/23 17:38 Last Admin: 09/28/23 17:44 Dose: 200 mls/hr Documented By: ISABELA Azithromycin 500 mg/ Dextrose 250 mls @ 250 mls/hr IV NOW ONE Stop: 09/28/23 17:38 Vital Signs Vital signs: Vital Signs - 8 hr 09/28/23 16:41 09/28/23 16:41 09/28/23 16:45 Temperature Pulse Rate 62 67 Respiratory Rate 21 Blood Pressure 174/85 H Pulse Oximetry 93 96 Oxygen Delivery Method Oxygen Flow Rate Fraction of Inspired Oxygen 09/28/23 16:50 09/28/23 16:54 09/28/23 16:55 Temperature 96.7 F L Pulse Rate 67 55 L 60 Respiratory Rate 20 31 H 14 Blood Pressure 174/85 H Pulse Oximetry 95 95 98 Oxygen Delivery Method Room Air Oxygen Flow Rate Fraction of Inspired Oxygen 09/28/23 17:00 09/28/23 17:05 09/28/23 17:06 Temperature Pulse Rate 49 L 45 L 48 L Respiratory Rate 16 17 20 Blood Pressure Pulse Oximetry 96 96 91 Oxygen Delivery Method Oxygen Flow Rate Fraction of Inspired Oxygen 09/28/23 17:06 09/28/23 17:10 09/28/23 17:15 Temperature Pulse Rate 61 40 L Respiratory Rate 24 18 Blood Pressure 139/65 Pulse Oximetry 93 95 Oxygen Delivery Method Oxygen Flow Rate Fraction of Inspired Oxygen 09/28/23 17:16 09/28/23 17:16 09/28/23 17:20 Temperature Pulse Rate 30 L Respiratory Rate 19 Blood Pressure 135/86 135/67 Pulse Oximetry 97 Oxygen Delivery Method Nasal Cannula Oxygen Flow Rate 2 Fraction of Inspired Oxygen 09/28/23 17:20 09/28/23 17:25 09/28/23 17:25 Temperature Pulse Rate 48 L 49 L Respiratory Rate 17 18 Blood Pressure 131/63 Pulse Oximetry 97 97 Oxygen Delivery Method Oxygen Flow Rate Fraction of Inspired Oxygen 09/28/23 17:29 09/28/23 17:30 09/28/23 17:30 Temperature 90.3 F L Pulse Rate 73 66 Respiratory Rate 27 H 25 H Blood Pressure 148/78 H Pulse Oximetry 96 97 Oxygen Delivery Method Nasal Cannula Oxygen Flow Rate 2 Fraction of Inspired Oxygen 09/28/23 17:35 09/28/23 17:36 09/28/23 17:36 Temperature 91.6 F L 92.1 F L Pulse Rate 56 L Respiratory Rate 19 18 Blood Pressure 105/73 Pulse Oximetry 96 95 Oxygen Delivery Method Oxygen Flow Rate Fraction of Inspired Oxygen 09/28/23 17:40 09/28/23 17:41 09/28/23 17:41 Temperature 92.7 F L 92.7 F L Pulse Rate 69 83 Respiratory Rate 18 25 H Blood Pressure 102/66 Pulse Oximetry 96 95 Oxygen Delivery Method Oxygen Flow Rate Fraction of Inspired Oxygen 09/28/23 17:45 09/28/23 17:46 09/28/23 17:46 Temperature 92.8 F L 93.0 F L Pulse Rate 63 56 L Respiratory Rate 16 19 Blood Pressure 135/70 Pulse Oximetry 100 100 Oxygen Delivery Method Oxygen Flow Rate Fraction of Inspired Oxygen 09/28/23 17:51 Temperature Pulse Rate Respiratory Rate Blood Pressure Pulse Oximetry Oxygen Delivery Method Oxygen Flow Rate Fraction of Inspired Oxygen 35 MDM - SOB/Dyspnea Lab Data 09/28/23 16:56 09/28/23 16:56 Labs: Lab Results 09/28/23 09/28/23 Range/Units 16:56 17:10 WBC 10.3 (4.5-11.0) X10^3/uL RBC 3.94 L (4.5-5.9) X10^6/uL Hgb 11.1 L (13.5-17.5) g/dL Hct 34.0 L (41-53) % MCV 86.3 (80-100) fL MCH 28.2 (26-34) PG MCHC 32.7 (30-36) % RDW 19.9 H (11.6-14.8) % Plt Count 57 L (150-400) X10^3/uL Neut % (Auto) 80.9 H (50-75) % Lymph % (Auto) 12.0 L (25-40) % Tompkins % (Auto) 5.9 (3-14) % Eos % (Auto) 1.0 L (2-4) % Baso % (Auto) 0.2 (0-2) % Neut # (Auto) 8300 H (2014-4927) /uL Lymph # (Auto) 1200 (3775-5204) /uL Tompkins # (Auto) 600 (0-900) /uL Eos # (Auto) 100 (0-450) /uL Baso # (Auto) 0 (0-100) /uL PT 58.6 H (9.4-12.5) SECONDS INR 5.0 H* (0.9-1.3) APTT 59 H (25.1-36.5) SECONDS Sodium 137 (137-145) mmol/L Potassium 5.1 (3.4-5.1) mmol/L Chloride 96 L (98-107) mmol/L Carbon Dioxide 31 (22-32) mmol/L BUN 44 H (9-20) mg/dL Creatinine 1.76 H (0.66-1.25) mg/dL Estimated GFR 39 L (>60) mL/min BUN/Creatinine Ratio 25.0 H (6-22) Glucose 105 (80-110) mg/dL Calcium 10.5 H (8.4-10.2) mg/dL Magnesium 2.4 H (1.6-2.3) mg/dL Total Bilirubin 1.3 (0.2-1.3) mg/dL AST 113 H (17-59) IU/L ALT 45 (<50) IU/L Alkaline Phosphatase 106 (38-126) U/L Total Creatine Kinase 128 (55-170) U/L Troponin I 0.012 (0.01-0.034) ng/mL NT-Pro-B Natriuret Pep 2540 H (<450) pg/mL Total Protein 7.9 (6.3-8.2) g/dL Albumin 4.2 (3.5-5.0) g/dL Globulin 3.7 (1.7-4.1) g/dL Albumin/Globulin Ratio 1.1 (1.0-2.8) Lipase 74 (23-300) U/L Chlamy pneumoniae PCR Not detected (Not Detect) Adenovirus (PCR) Not detected (Not Detect) B.parapertussis DNA PCR Not detected (Not Detecte) Coronavirus OC43 (PCR) Not detected (Not Detect) Coronavirus HKU1 (PCR) Not detected (Not Detect) Coronavirus 229E (PCR) Not detected (Not Detect) SARS-CoV-2 (PCR) Not detected (Not Detecte) Coronavirus NL63 (PCR) Not detected (Not Detect) Human Metapneumovir PCR Not detected (Not Detect) Influenza Type A (PCR) Not detected (Not Detect) Influenza Type B (PCR) Not detected (Not Detect) M. pneumoniae (PCR) Not detected (Not Detect) Parainfluenza 1 (PCR) Not detected (Not Detect) Parainfluenza 2 (PCR) Not detected (Not Detect) Parainfluenza 3 (PCR) Not detected (Not Detect) Parainfluenza 4 (PCR) Not detected (Not Detect) RSV (PCR) Not detected (Not Detect) Entero/Rhino (PCR) Not detected (Not Detect) Discharge Plan Departure Prescriptions: No Action cefpodoxime 200 mg tablet 400 mg PO BID Qty: 28 0RF Rx Instructions: must administer with a meal/food. Stop taking pantoprazole while using. pantoprazole 40 mg Tablet,Delayed Release (Dr/Ec) 40 mg PO DAILY Qty: 30 0RF pravastatin 20 mg Tablet 40 mg PO BEDTIME Qty: 30 0RF potassium chloride [Klor-Con M20] 20 mEq Tablet,Er Particles/Crystals 40 meq PO DAILYCC Qty: 30 1RF Naphcon-A 0.025-0.3 % drops 1 drp EYE-BOTH QID PRN (Reason: Allergy Symptoms) Patient Comments: INSTILL 1 TO 2 DROPS IN BOTH EYES UP TO FOUR TIMES DAILY NEEDED FOR ALLERGY SYMPTOMS magnesium oxide 400 mg (241.3 mg magnesium) Tablet 400 mg PO DAILY Qty: 30 0RF digoxin 125 mcg (0.125 mg) Tablet 0.125 mg PO Q48H Qty: 60 0RF metoprolol succinate 50 mg Tablet Extended Release 24 Hr 25 mg PO BID Qty: 90 3RF furosemide [Lasix] 20 mg tablet 80 mg PO BID silver sulfadiazine [Silvadene] 1 % Cream 1 applic topical DAILY Qty: 30 0RF levothyroxine 137 mcg Tablet 137 mcg PO 0600 Qty: 30 0RF hydrocodone-acetaminophen 5-325 mg Tablet 1 tab PO Q4H PRN (Reason: Pain, Moderate (4-6)) Qty: 30 0RF naloxone 0.4 mg/mL Solution 0.2 mg IV Q2MIN PRN (Reason: Opiate Reversal) Qty: 12 0RF bacitracin 500 unit/gram Ointment 1 applic topical BID Qty: 30 0RF melatonin 3 mg Tablet 3 mg PO BEDTIME Qty: 30 0RF warfarin 5 mg Tablet 5 mg PO DAILY@1700 Qty: 30 0RF tamsulosin [Flomax] 0.4 mg Capsule 0.8 mg PO DAILY Qty: 60 0RF Referrals: Zackary Hoover MD [Primary Care Provider] -
[2023-09-28 17:20] LABS: PTT Partial Thromboplastin Tim 59 SECONDS (25.1-36.5)
[2023-09-28 17:23] LABS: Alanine Aminotransferase 45 IU/L (<50); Albumin 4.2 g/dL (3.5-5.0); Albumin Globulin Ratio 1.1 (1.0-2.8); Alkaline Phosphatase 106 U/L (38-126); Aspartate Aminotransferase 113 IU/L (17-59); Bilirubin Total 1.3 mg/dL (0.2-1.3); Blood Urea Nitrogen 44 mg/dL (9-20); Calcium 10.5 mg/dL (8.4-10.2); Carbon Dioxide 31 mmol/L (22-32); Chloride 96 mmol/L (98-107); Creatine Kinase 128 U/L (55-170); Estimated Glomerular Filt Rate 39 mL/min (>60); Globulin 3.7 g/dL (1.7-4.1); Glucose 105 mg/dL (80-110); Lipase 74 U/L (23-300); Magnesium 2.4 mg/dL (1.6-2.3); Sodium 137 mmol/L (137-145); Total Protein 7.9 g/dL (6.3-8.2)
[2023-09-28 17:24] LABS: HEMOLYSIS 129 (0-50)
[2023-09-28 17:25] LABS: Potassium 5.1 mmol/L (3.4-5.1)
[2023-09-28 17:26] LABS: Add Manual Diff / Slide Review NO; Basophils Absolute Auto 0 /uL (0-100); Basophils Percent Auto 0.2 % (0-2); Eosinophils Absolute Auto 100 /uL (0-450); Hemoglobin 11.1 g/dL (13.5-17.5); Lymphocytes Absolute Auto 1200 /uL (1100-4500); Mean Corpuscular HGB Conc 32.7 % (30-36); Mean Corpuscular Hemoglobin 28.2 PG (26-34); Mean Corpuscular Volume 86.3 fL (80-100); Monocytes Absolute Auto 600 /uL (0-900); Monocytes Percent Auto 5.9 % (3-14); Neutrophils Absolute Auto 8300 /uL (1500-7000); Neutrophils Percent Auto 80.9 % (50-75); Platelet Count 57 X10^3/uL (150-400); Red Blood Cell Count 3.94 X10^6/uL (4.5-5.9); Red Cell Distribution Width 19.9 % (11.6-14.8); White Blood Cell Count 10.3 X10^3/uL (4.5-11.0)
[2023-09-28] MEDS: FUROSEMIDE 80 MG in SODIUM CHLORIDE 0.9% 50 ML 116 MG IV ×2 (17:27→20:26)
[2023-09-28] MEDS: ATROPINE 1 MG/10 ML SYRINGE 0.5 MG IV (17:28)
[2023-09-28 17:34] LABS: NT-proBNP (BNP-Adult 18+) 2540 pg/mL (<450); Troponin I 0.012 ng/mL (0.01-0.034)
--- NOTE | 2023-09-28 17:34 | PC.NURSE ---
Addendum entered by Heaven Quiñones CNA 09/28/23 17:37: Pt presented to the emergency dept today with increasing SOB and increasing work of breathing. Pt's work of breathing increased significantly at the time of triage when pt was being transferred from bed to stretcher. Pt unable to speak in full sentences. Rt called to bedside. HR dropped to low 30s. Dr Garcia notified and at bedside. 2nd 20g IV started in left wrist & ro catheter placed by rn. Administered 80 mg lasix. Pt sitting up in bed and bilateral course crackles heard upon auscultation. Skin clammy and ashy. Pt temp 92.7 and george hugger placed on pt. Verbal order for Bipap from Dr garcia and rt to place. Original Note: Pt presented to the emergency dept today with increasing SOB and increasing work of breathing. Pt's work of breathing increased significantly at the time of triage when pt was being transferred from bed to stretcher. Pt unable to speak in full sentences. HR dropped to low 30s. Dr Garcia notified and at bedside. 2nd 20g IV started in left wrist & ro catheter placed by rn. Administered
[2023-09-28] MEDS: cefTRIAXone 2,000 MG in SODIUM CHLORIDE 0.9% 100 ML 200 MG IV (17:44)
--- NOTE | 2023-09-28 17:52 | PC.NURSE ---
Danielson catheter placed by RN. Patent and draining clear caleb urine.
[2023-09-28 17:58] LABS: Adenovirus Not Detected (Not Detect); B. parapertussis Not Detected (Not Detecte); Bordetella pertussis Not Detected (Not Detect); Chlamydophila pneumoniae Not Detected (Not Detect); Coronavirus 229E Not Detected (Not Detect); Coronavirus HKU1 Not Detected (Not Detect); Coronavirus NL 63 Not Detected (Not Detect); Coronavirus OC43 Not Detected (Not Detect); Human Metapneumovirus Not Detected (Not Detect); Human Rhinovirus/Enterovirus Not Detected (Not Detect); Influenza A Not Detected (Not Detect); Influenza B Not Detected (Not Detect); Mycoplasma pneumoniae Not Detected (Not Detect); Parainfluenza Virus 1 Not Detected (Not Detect); Parainfluenza Virus 2 Not Detected (Not Detect); Parainfluenza Virus 3 Not Detected (Not Detect); Parainfluenza Virus 4 Not Detected (Not Detect); Respiratory Syncytial Virus Not Detected (Not Detect); SARS- CoV-2 Not Detected (Not Detecte)
--- NOTE | 2023-09-28 18:04 | PC.NURSE ---
Pt sitting up in bed with bipap. Pt tolerating well. HR 50, RR 17. o2 sat 96%
[2023-09-28 18:15] LABS: Appearance Urine UA CLEAR; Bilirubin Urine UA NEGATIVE (NEGATIVE); Color Urine UA YELLOW; Glucose Urine UA NEGATIVE (Negative); Ketones Urine UA NEGATIVE (NEGATIVE); Leukocyte Esterase Urine UA NEGATIVE (NEGATIVE); Nitrite Urine UA NEGATIVE (Negative); Occult Blood Urine UA NEGATIVE (Negative); Protein Urine UA NEGATIVE (Negative); Urobilinogen Urine UA 0.2 E.U./dL (0.2)
[2023-09-28] MEDS: ATROPINE 1 MG/10 ML SYRINGE IV (18:16)
--- NOTE | 2023-09-28 18:18 | PC.NURSE ---
pt HR dropped back down to 30s. Dr Rodriguez notified. Received order for 1mg atropine.
[2023-09-28] MEDS: AZITHROMYCIN 500 MG in DEXTROSE 5% IN WATER 250 ML 250 MG IV (18:21)
--- NOTE | 2023-09-28 18:24 | PC.NURSE ---
1 mg atropine pushed. HR 78
[2023-09-28 18:27] LABS: Bacteria Urine None Seen; Culture Indicated Urine Cult Not Indicated; RBC Urine None Seen (0-5/HPF); Renal Epithelial Cells Urine 5-10/HPF (0-1/HPF); Squamous Epithelial Cell Urine None Seen (0-5/HPF); WBC Urine 1-5/HPF (0-5/HPF)
[2023-09-28 18:29] LABS: Lactate (Lactic Acid) 2.5 mmol/L (0.7-2.1)
[2023-09-28 18:42] LABS: Fractionated Inspired Oxygen 35; HCO3 VBG 35 mmol/L (24-28); Oxygen Saturation VBG 90 % (70-75); PCO2 VBG 50.3 mmHg (45-50); PO2 VBG 57 mmHg (35-45); Total CO2 VBG 36 mmol/L (24-29); pH VBG 7.45 (7.33-7.43)
[2023-09-28 18:46] LABS: Digoxin < 0.4 ng/mL (0.8-2.0)
[2023-09-28 19:11] LABS: Procalcitonin 0.09 ng/mL (<0.5)
--- NOTE | 2023-09-28 19:12 | PC.NURSE ---
Pt tolerating bipap at this time. Denies pain. Pt at bedside.
[2023-09-28] MEDS: GLUCAGON,HUMAN RECOMBINANT 1 MG/ML VIAL 5 MG IV (19:16)
[2023-09-28] MEDS: MORPHINE 2 MG/ML INJ IV (19:22)
[2023-09-28 19:36] LABS: Troponin I < 0.012 ng/mL (0.01-0.034)
[2023-09-28 19:51] LABS: Reflexed Lactate in 2 Hours Y
--- NOTE | 2023-09-28 19:54 | ED_ITS ---
HPI - General Adult General Chief complaint: Shortness of Breath/Dyspnea Stated complaint: SOB/retaining water/swollen legs Time Seen by Provider: 09/28/23 17:16 Source: patient and family Mode of arrival: Wheelchair History of Present Illness HPI narrative: 78-year-old gentleman with a history of atrial fibrillation anticoagulated on warfarin treated with digoxin and metoprolol for rate control, hypothyroidism, reflux, hyperlipidemia, BPH, chronic congestive heart failure chronic lower extremity wounds with wound care visits weekly presents with increasing weakness, relative hypothermia, increasing cough and slight increase in overall confusion. 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 She does note that he has not been to Wound Care for the last 3 weeks but he does have home health twice a week to do dressing changes. She does not believe he is had fever, there is no reports of vomiting, abdominal pain or diarrhea. He does have dressings with essentially compression stockings bilaterally in the lower extremities. Related Data Home Medications Medication Instructions Recorded Confirmed spironolactone 25 mg tablet 12.5 mg PO DAILY 09/28/23 09/28/23 torsemide 10 mg tablet 10 mg PO QPM 09/28/23 09/28/23 torsemide 10 mg tablet 20 mg PO QAM 09/28/23 09/28/23 Previous Rx's Medication Instructions Recorded pantoprazole 40 mg tablet,delayed 40 mg PO DAILY #30 tabs 03/03/21 release pravastatin 20 mg tablet 40 mg (2 x 20 mg) PO BEDTIME #30 03/03/21 tabs tamsulosin 0.4 mg capsule (Flomax) 0.8 mg (2 x 0.4 mg) PO DAILY #60 07/28/21 caps potassium chloride 20 mEq 40 meq (2 x 20 mEq) PO DAILYCC #30 11/01/21 tablet,extended tabs release(part/cryst) (Klor-Con M) digoxin 125 mcg (0.125 mg) tablet 0.125 mg PO Q48H #60 tabs 07/04/22 metoprolol succinate 50 mg 25 mg (1/2 x 50 mg) PO BID #90 tabs 07/04/22 tablet,extended release 24 hr levothyroxine 137 mcg tablet 137 mcg PO 0600 #30 tabs 10/16/22 warfarin 5 mg tablet 5 mg PO DAILY@1700 #30 tabs 10/16/22 Allergies Allergy/AdvReac Type Severity Reaction Status Date / Time Penicillins [PENICILLINS] AdvReac Intermediate Gastrointestinal Verified 09/28/23 18:38 Upset Review of Systems Review of Systems Narrative: Pertinent positive and negative findings as per HPI Patient History Medical History Alcohol abuse Congestive heart failure Depression Esophageal ulceration Essential hypertension GERD (gastroesophageal reflux disease) Hypothyroidism Mixed hyperlipidemia Venous stasis Surgical History Status post appendectomy Family History Other Congestive heart failure Social History household members: spouse Smoking Status: Never smoker alcohol intake: never Smoking Status: Never smoker alcohol intake frequency: 0-2 drinks per day Substance Use Type: does not use Exam Initial Vital Signs Initial Vital Signs: Vital Signs Pulse Rate 62 09/28/23 16:41 Blood Pressure 174/85 H 09/28/23 16:41 Pulse Oximetry 93 09/28/23 16:41 General: Chronically ill-appearing gentleman mild respiratory distress profoundly hard of hearing HEENT: Moist mucous membranes, normal sclera with reactive pupils, Neck: Body habitus makes reasonable Neck evaluation and for JVD difficult Respiratory: Lungs with crackles to mid lung bruno, scattered rhonchi, minimal wheeze Cardiac: Significantly bradycardic, no murmurs appreciated Abdomen: Soft, obese, no tenderness with palpation, no flank pain Skin: Quite thin with multiple bruises secondary to his anticoagulation over upper extremities Neurologic: Globally weak but he is moving all extremities Extremities: Wound care dressings in place. They are removed. Vesicle over the dorsum of the right foot. Wounds with prior unroof vesicles and ulcers over the right lower extremity with mild cellulitis erythema over the entire right lower extremity. Unclear if this is actually infectious versus chronic reasons stasis changes. Left lower extremity with some vesicles over his toes and, again chronic wounds that are irritated but do not have significant drainage. Chronic venous stasis changes. We will certainly need wound care Psych: He is trying to be cooperative however with his profound hearing loss it is difficult to tell how much he is truly comprehending versus how much he is not able to hear Course Orders Ordered: ED Orders 09/28/23 16:48 XR chest 1V Stat EKG-12 Lead Stat 09/28/23 16:56 BNP [NT-proBNP (BNP-Adult 18+)] Stat Complete Blood Count AUTO DIFF Stat Comprehensive Metabolic Panel Stat Digoxin Stat Lactate (Lactic Acid) Stat Lipase Stat Magnesium Stat PTT Partial Thromboplastin [place] Stat Procalcitonin Stat Prothrombin Time INR Stat Troponin & CK Cardiac Panel Stat 09/28/23 17:10 Respiratory Panel (Film Array) Stat 09/28/23 17:12 Blood Culture Stat 09/28/23 17:17 Prothrombin Time INR Stat 09/28/23 17:30 Urinalysis and Microscopic Stat 09/28/23 18:34 VBG [Venous Blood Gas] Stat 09/28/23 19:00 Troponin I Stat EKG-12 Lead Stat Discontinued Medications Atropine Sulfate (Atropine 0.4 Mg/Ml Vial) 0.25 mg IV NOW ONE Stop: 09/28/23 17:19 Last Admin: 09/28/23 17:45 Dose: Not Given Documented By: ISABELA Atropine Sulfate (Atropine 1 Mg/10 Ml Syringe) 0.5 mg IV NOW ONE Stop: 09/28/23 17:27 Last Admin: 09/28/23 17:28 Dose: 0.5 mg Documented By: ISABELA Atropine Sulfate (Atropine 1 Mg/10 Ml Syringe) 1 mg IV NOW ONE Stop: 09/28/23 18:10 Last Admin: 09/28/23 18:16 Dose: 1 mg Documented By: ISABELA Glucagon (Glucagon,Human Recombinant 1 Mg/Ml Vial) 5 mg IV NOW ONE Stop: 09/28/23 19:01 Last Admin: 09/28/23 19:16 Dose: 5 mg Documented By: VANE Furosemide 60 mg/ Sodium (Chloride) 56 mls @ 112 mls/hr IV NOW ONE Stop: 09/28/23 17:18 Last Admin: 09/28/23 17:44 Dose: Not Given Documented By: VANE Furosemide 80 mg/ Sodium (Chloride) 58 mls @ 116 mls/hr IV NOW ONE Stop: 09/28/23 17:20 Last Infusion: 09/28/23 17:58 Dose: Infused Documented By: Admin: 09/28/23 17:27 Dose: 116 mls/hr Documented By: ISABELA Ceftriaxone Sodium 2,000 mg/ (Sodium Chloride) 100 mls @ 200 mls/hr IV NOW ONE Stop: 09/28/23 17:38 Last Infusion: 09/28/23 18:22 Dose: Infused Documented By: Admin: 09/28/23 17:44 Dose: 200 mls/hr Documented By: ISABELA Azithromycin 500 mg/ Dextrose 250 mls @ 250 mls/hr IV NOW ONE Stop: 09/28/23 17:38 Last Infusion: 09/28/23 19:34 Dose: Infused Documented By: Admin: 09/28/23 18:21 Dose: 250 mls/hr Documented By: ISABELA Digoxin Immune TAN 40 mg/ (Sodium Chloride) 50 mls @ 100 mls/hr IV NOW ONE Stop: 09/28/23 18:10 Last Infusion: 09/28/23 19:34 Dose: Infused Documented By: Admin: 09/28/23 18:55 Dose: 100 mls/hr Documented By: ISABELA Morphine Sulfate (Morphine 2 Mg/Ml Inj) 2 mg IV NOW ONE Stop: 09/28/23 19:19 Last Admin: 09/28/23 19:22 Dose: 2 mg Documented By: VANE Vital Signs Vital signs: Vital Signs - 8 hr 09/28/23 16:41 09/28/23 16:41 09/28/23 16:45 Temperature Pulse Rate 62 67 Respiratory Rate 21 Blood Pressure 174/85 H Pulse Oximetry 93 96 Oxygen Delivery Method Oxygen Flow Rate Fraction of Inspired Oxygen 09/28/23 16:50 09/28/23 16:54 09/28/23 16:55 Temperature 96.7 F L Pulse Rate 67 55 L 60 Respiratory Rate 20 31 H 14 Blood Pressure 174/85 H Pulse Oximetry 95 95 98 Oxygen Delivery Method Room Air Oxygen Flow Rate Fraction of Inspired Oxygen 09/28/23 17:00 09/28/23 17:05 09/28/23 17:06 Temperature Pulse Rate 49 L 45 L 48 L Respiratory Rate 16 17 20 Blood Pressure Pulse Oximetry 96 96 91 Oxygen Delivery Method Oxygen Flow Rate Fraction of Inspired Oxygen 09/28/23 17:06 09/28/23 17:10 09/28/23 17:15 Temperature Pulse Rate 61 40 L Respiratory Rate 24 18 Blood Pressure 139/65 Pulse Oximetry 93 95 Oxygen Delivery Method Oxygen Flow Rate Fraction of Inspired Oxygen 09/28/23 17:16 09/28/23 17:16 09/28/23 17:20 Temperature Pulse Rate 30 L Respiratory Rate 19 Blood Pressure 135/86 135/67 Pulse Oximetry 97 Oxygen Delivery Method Nasal Cannula Oxygen Flow Rate 2 Fraction of Inspired Oxygen 09/28/23 17:20 09/28/23 17:25 09/28/23 17:25 Temperature Pulse Rate 48 L 49 L Respiratory Rate 17 18 Blood Pressure 131/63 Pulse Oximetry 97 97 Oxygen Delivery Method Oxygen Flow Rate Fraction of Inspired Oxygen 09/28/23 17:29 09/28/23 17:30 09/28/23 17:30 Temperature 90.3 F L Pulse Rate 73 66 Respiratory Rate 27 H 25 H Blood Pressure 148/78 H Pulse Oximetry 96 97 Oxygen Delivery Method Nasal Cannula Oxygen Flow Rate 2 Fraction of Inspired Oxygen 09/28/23 17:35 09/28/23 17:36 09/28/23 17:36 Temperature 91.6 F L 92.1 F L Pulse Rate 56 L Respiratory Rate 19 18 Blood Pressure 105/73 Pulse Oximetry 96 95 Oxygen Delivery Method Oxygen Flow Rate Fraction of Inspired Oxygen 09/28/23 17:40 09/28/23 17:41 09/28/23 17:41 Temperature 92.7 F L 92.7 F L Pulse Rate 69 83 Respiratory Rate 18 25 H Blood Pressure 102/66 Pulse Oximetry 96 95 Oxygen Delivery Method Oxygen Flow Rate Fraction of Inspired Oxygen 09/28/23 17:45 09/28/23 17:46 09/28/23 17:46 Temperature 92.8 F L 93.0 F L Pulse Rate 63 56 L Respiratory Rate 16 19 Blood Pressure 135/70 Pulse Oximetry 100 100 Oxygen Delivery Method Oxygen Flow Rate Fraction of Inspired Oxygen 09/28/23 17:50 09/28/23 17:50 09/28/23 17:51 Temperature 93.0 F L Pulse Rate 49 L Respiratory Rate 16 Blood Pressure 121/67 Pulse Oximetry 100 Oxygen Delivery Method Oxygen Flow Rate Fraction of Inspired Oxygen 35 09/28/23 17:55 09/28/23 17:55 09/28/23 18:00 Temperature 93.0 F L 93.2 F L Pulse Rate 70 64 Respiratory Rate 21 18 Blood Pressure 124/67 Pulse Oximetry 100 97 Oxygen Delivery Method Oxygen Flow Rate Fraction of Inspired Oxygen 09/28/23 18:00 09/28/23 18:05 09/28/23 18:10 Temperature 93.2 F L 93.2 F L Pulse Rate 50 L 63 Respiratory Rate 17 18 Blood Pressure 123/71 Pulse Oximetry 96 93 Oxygen Delivery Method Oxygen Flow Rate Fraction of Inspired Oxygen 09/28/23 18:10 09/28/23 18:15 09/28/23 18:16 Temperature 93.2 F L Pulse Rate 47 L Respiratory Rate 18 Blood Pressure 110/74 116/64 Pulse Oximetry 95 Oxygen Delivery Method BiPAP Oxygen Flow Rate Fraction of Inspired Oxygen 09/28/23 18:16 09/28/23 18:20 09/28/23 18:20 Temperature 93.2 F L 93.2 F L Pulse Rate 49 L 74 Respiratory Rate 17 18 Blood Pressure 137/90 Pulse Oximetry 95 97 Oxygen Delivery Method BiPAP BiPAP Oxygen Flow Rate Fraction of Inspired Oxygen 09/28/23 18:25 09/28/23 18:25 09/28/23 18:30 Temperature 93.4 F L 93.4 F L Pulse Rate 78 79 Respiratory Rate 24 18 Blood Pressure 145/79 H Pulse Oximetry 96 97 Oxygen Delivery Method Oxygen Flow Rate Fraction of Inspired Oxygen 09/28/23 18:30 09/28/23 18:35 09/28/23 18:35 Temperature 93.4 F L Pulse Rate 75 Respiratory Rate 18 Blood Pressure 154/81 H 154/81 H Pulse Oximetry 98 Oxygen Delivery Method Oxygen Flow Rate Fraction of Inspired Oxygen 35 09/28/23 18:36 09/28/23 18:36 09/28/23 18:40 Temperature 93.4 F L 93.4 F L Pulse Rate 71 69 Respiratory Rate 19 20 Blood Pressure 117/67 Pulse Oximetry 97 97 Oxygen Delivery Method Oxygen Flow Rate Fraction of Inspired Oxygen 09/28/23 18:41 09/28/23 18:41 09/28/23 18:45 Temperature 93.6 F L Pulse Rate 83 Respiratory Rate 23 Blood Pressure 126/73 129/98 H Pulse Oximetry 97 Oxygen Delivery Method Oxygen Flow Rate Fraction of Inspired Oxygen 09/28/23 18:45 09/28/23 18:50 09/28/23 18:55 Temperature 93.6 F L 93.6 F L 93.7 F L Pulse Rate 79 74 104 H Respiratory Rate 20 26 H 18 Blood Pressure Pulse Oximetry 97 96 99 Oxygen Delivery Method BiPAP Oxygen Flow Rate Fraction of Inspired Oxygen 09/28/23 18:58 09/28/23 18:58 09/28/23 19:00 Temperature 93.7 F L 93.7 F L Pulse Rate 96 H 79 Respiratory Rate 20 19 Blood Pressure 122/68 Pulse Oximetry 97 99 Oxygen Delivery Method Oxygen Flow Rate Fraction of Inspired Oxygen 09/28/23 19:00 09/28/23 19:05 09/28/23 19:05 Temperature 93.9 F L Pulse Rate 80 Respiratory Rate 23 Blood Pressure 115/72 112/82 Pulse Oximetry 98 Oxygen Delivery Method Oxygen Flow Rate Fraction of Inspired Oxygen 09/28/23 19:10 09/28/23 19:10 Temperature 94.1 F L Pulse Rate 99 H Respiratory Rate 24 Blood Pressure 109/93 H Pulse Oximetry 98 Oxygen Delivery Method BiPAP Oxygen Flow Rate Fraction of Inspired Oxygen Medical Decision Making Lab Data 09/28/23 16:56 09/28/23 16:56 Labs: Lab Results 09/28/23 09/28/23 09/28/23 Range/Units 16:56 17:10 17:30 WBC 10.3 (4.5-11.0) X10^3/uL RBC 3.94 L (4.5-5.9) X10^6/uL Hgb 11.1 L (13.5-17.5) g/dL Hct 34.0 L (41-53) % MCV 86.3 (80-100) fL MCH 28.2 (26-34) PG MCHC 32.7 (30-36) % RDW 19.9 H (11.6-14.8) % Plt Count 57 L (150-400) X10^3/uL Neut % (Auto) 80.9 H (50-75) % Lymph % (Auto) 12.0 L (25-40) % [place] % (Auto) 5.9 (3-14) % Eos % (Auto) 1.0 L (2-4) % Baso % (Auto) 0.2 (0-2) % Neut # (Auto) 8300 H (7137-7567) /uL Lymph # (Auto) 1200 (6265-7953) /uL [place] # (Auto) 600 (0-900) /uL Eos # (Auto) 100 (0-450) /uL Baso # (Auto) 0 (0-100) /uL PT 58.6 H (9.4-12.5) SECONDS INR 5.0 H* (0.9-1.3) APTT 59 H (25.1-36.5) SECONDS VBG pH (7.33-7.43) VBG pCO2 (45-50) mmHg VBG pO2 (35-45) mmHg VBG HCO3 (24-28) mmol/L VBG Total CO2 (24-29) mmol/L VBG O2 Saturation (70-75) % VBG Base Excess (0-4) mmol/L FiO2 Sodium 137 (137-145) mmol/L Potassium 5.1 (3.4-5.1) mmol/L Chloride 96 L (98-107) mmol/L Carbon Dioxide 31 (22-32) mmol/L BUN 44 H (9-20) mg/dL Creatinine 1.76 H (0.66-1.25) mg/dL Estimated GFR 39 L (>60) mL/min BUN/Creatinine Ratio 25.0 H (6-22) Glucose 105 (80-110) mg/dL Lactate 2.5 H (0.7-2.1) mmol/L Calcium 10.5 H (8.4-10.2) mg/dL Magnesium 2.4 H (1.6-2.3) mg/dL Total Bilirubin 1.3 (0.2-1.3) mg/dL AST 113 H (17-59) IU/L ALT 45 (<50) IU/L Alkaline Phosphatase 106 (38-126) U/L Total Creatine Kinase 128 (55-170) U/L Troponin I 0.012 (0.01-0.034) ng/mL NT-Pro-B Natriuret Pep 2540 H (<450) pg/mL Total Protein 7.9 (6.3-8.2) g/dL Albumin 4.2 (3.5-5.0) g/dL Globulin 3.7 (1.7-4.1) g/dL Albumin/Globulin Ratio 1.1 (1.0-2.8) Lipase 74 (23-300) U/L Procalcitonin 0.09 (<0.5) ng/mL Urine Color Yellow Urine Appearance Clear Urine pH 7.0 (4.5-8.0) Ur Specific [place] 1.010 (1.000-1.035) Urine Protein Negative (Negative) Urine Glucose (UA) Negative (Negative) g/dL Urine Ketones Negative (NEGATIVE) Urine Occult Blood Negative (Negative) Urine Nitrate Negative (Negative) Urine Bilirubin Negative (NEGATIVE) Urine Urobilinogen 0.2 (0.2) E.U./dL Ur Leukocyte Esterase Negative (NEGATIVE) Urine RBC None seen (0-5/HPF) Urine WBC 1-5/hpf (0-5/HPF) Ur Squamous Epith Cells None seen (0-5/HPF) Ur Renal Epithelial Cell 5-10/hpf H (0-1/HPF) Urine Bacteria None seen (None) Ur Culture Indicated? Cult not indicated Digoxin < 0.4 L (0.8-2.0) ng/mL Chlamy pneumoniae PCR Not detected (Not Detect) Adenovirus (PCR) Not detected (Not Detect) B.parapertussis DNA PCR Not detected (Not Detecte) Coronavirus OC43 (PCR) Not detected (Not Detect) Coronavirus HKU1 (PCR) Not detected (Not Detect) Coronavirus 229E (PCR) Not detected (Not Detect) SARS-CoV-2 (PCR) Not detected (Not Detecte) Coronavirus NL63 (PCR) Not detected (Not Detect) Human Metapneumovir PCR Not detected (Not Detect) Influenza Type A (PCR) Not detected (Not Detect) Influenza Type B (PCR) Not detected (Not Detect) M. pneumoniae (PCR) Not detected (Not Detect) Parainfluenza 1 (PCR) Not detected (Not Detect) Parainfluenza 2 (PCR) Not detected (Not Detect) Parainfluenza 3 (PCR) Not detected (Not Detect) Parainfluenza 4 (PCR) Not detected (Not Detect) RSV (PCR) Not detected (Not Detect) Entero/Rhino (PCR) Not detected (Not Detect) 09/28/23 09/28/23 Range/Units 18:34 19:00 WBC (4.5-11.0) X10^3/uL RBC (4.5-5.9) X10^6/uL Hgb (13.5-17.5) g/dL Hct (41-53) % MCV (80-100) fL MCH (26-34) PG MCHC (30-36) % RDW (11.6-14.8) % Plt Count (150-400) X10^3/uL Neut % (Auto) (50-75) % Lymph % (Auto) (25-40) % [place] % (Auto) (3-14) % Eos % (Auto) (2-4) % Baso % (Auto) (0-2) % Neut # (Auto) (5821-7680) /uL Lymph # (Auto) (5720-7436) /uL [place] # (Auto) (0-900) /uL Eos # (Auto) (0-450) /uL Baso # (Auto) (0-100) /uL PT (9.4-12.5) SECONDS INR (0.9-1.3) APTT (25.1-36.5) SECONDS VBG pH 7.45 H (7.33-7.43) VBG pCO2 50.3 H (45-50) mmHg VBG pO2 57 H (35-45) mmHg VBG HCO3 35 H (24-28) mmol/L VBG Total CO2 36 H (24-29) mmol/L VBG O2 Saturation 90 H (70-75) % VBG Base Excess 11.0 H (0-4) mmol/L FiO2 35 Sodium (137-145) mmol/L Potassium (3.4-5.1) mmol/L Chloride (98-107) mmol/L Carbon Dioxide (22-32) mmol/L BUN (9-20) mg/dL Creatinine (0.66-1.25) mg/dL Estimated GFR (>60) mL/min BUN/Creatinine Ratio (6-22) Glucose (80-110) mg/dL Lactate (0.7-2.1) mmol/L Calcium (8.4-10.2) mg/dL Magnesium (1.6-2.3) mg/dL Total Bilirubin (0.2-1.3) mg/dL AST (17-59) IU/L ALT (<50) IU/L Alkaline Phosphatase (38-126) U/L Total Creatine Kinase (55-170) U/L Troponin I < 0.012 (0.01-0.034) ng/mL NT-Pro-B Natriuret Pep (<450) pg/mL Total Protein (6.3-8.2) g/dL Albumin (3.5-5.0) g/dL Globulin (1.7-4.1) g/dL Albumin/Globulin Ratio (1.0-2.8) Lipase (23-300) U/L Procalcitonin (<0.5) ng/mL Urine Color Urine Appearance Urine pH (4.5-8.0) Ur Specific [place] (1.000-1.035) Urine Protein (Negative) Urine Glucose (UA) (Negative) g/dL Urine Ketones (NEGATIVE) Urine Occult Blood (Negative) Urine Nitrate (Negative) Urine Bilirubin (NEGATIVE) Urine Urobilinogen (0.2) E.U./dL Ur Leukocyte Esterase (NEGATIVE) Urine RBC (0-5/HPF) Urine WBC (0-5/HPF) Ur Squamous Epith Cells (0-5/HPF) Ur Renal Epithelial Cell (0-1/HPF) Urine Bacteria (None) Ur Culture Indicated? Digoxin (0.8-2.0) ng/mL Chlamy pneumoniae PCR (Not Detect) Adenovirus (PCR) (Not Detect) B.parapertussis DNA PCR (Not Detecte) Coronavirus OC43 (PCR) (Not Detect) Coronavirus HKU1 (PCR) (Not Detect) Coronavirus 229E (PCR) (Not Detect) SARS-CoV-2 (PCR) (Not Detecte) Coronavirus NL63 (PCR) (Not Detect) Human Metapneumovir PCR (Not Detect) Influenza Type A (PCR) (Not Detect) Influenza Type B (PCR) (Not Detect) M. pneumoniae (PCR) (Not Detect) Parainfluenza 1 (PCR) (Not Detect) Parainfluenza 2 (PCR) (Not Detect) Parainfluenza 3 (PCR) (Not Detect) Parainfluenza 4 (PCR) (Not Detect) RSV (PCR) (Not Detect) Entero/Rhino (PCR) (Not Detect) MDM Narrative Medical decision making narrative: CC: Dyspnea and weakness Complicating co-morbidities: Significant congestive heart failure, chronic lower extremity wounds, atrial fibrillation anticoagulated, decreasing mobility, cognitive impairment profound hearing loss Data collected from: patient, Social determinants of health that may influence the patients condition: Patient and are still living independently Code status discussion: Patient would not want CPR done. If intubation were required he would want to discuss this further. Would want treatment up to the point of CPR. Medical records reviewed: Wound care notes from December are reviewed. Discharge summary from September 2022 hospital admission for similar concerns reviewed Differential considered: Sepsis, acute coronary syndrome, congestive heart failure, symptomatic bradycardia, Exam documented above, pertinent findings include: Chronically ill-appearing gentleman bibasilar crackles consistent with worsening congestive heart failure, lower extremities with worsening chronic venous stasis changes and concerns for developing cellulitis, relative hypothermia at 96.4 on arrival Lab Test results independently reviewed as above. Pertinent findings: CBC shows no significant leukocytosis and chronic stable anemia. Platelets are low at 57 which appears chronic Coagulation studies show INR is elevated at 5.0, he is on warfarin. He is not showing signs of active bleeding Venous blood gas shows a pH of 7.45 CO2 of 50.3 bicarb of 35. Gases obtained after approximately an hour on BiPAP Chemistries show normal sodium and potassium. Minor renal insufficiency with creatinine at 1.7 Calcium and magnesium are both slightly elevated at 10.5 and 2.4 respectively Initial lactic acid is elevated at 2.5 Initial troponin is undetectable as is repeat ProBNP is 2540 consistent with his picture of clinical congestive heart failure Lipase is unremarkable Procalcitonin is not elevated Full respiratory panel is negative Independently reviewed EKG: Atrial fibrillation currently at a rate of 86 with frequent PVCs and poor overall baseline. No obvious ischemic changes Imaging studies independently reviewed: Chest x-ray shows significant bilateral pulmonary infiltrates consistent with congestive heart failure, moderate cardiomegaly Treatments: Bradycardia: He is given Digibind as well as a bolus of glucagon to reverse digoxin and metoprolol respectively. He has had a reasonable response to both of these Atropine x3 doses for bradycardia to the 30s Lasix 80 mg and repeated for his significant congestive heart failure Ceftriaxone and azithromycin given for concerns for pneumonia however also effective for lower extremity wounds. Will add vancomycin. Wound cultures from August 24 2023 reviewed. He had E coli that is sensitive to ceftriaxone as well as staph aureus oxacillin sensitive Re-evaluations: On re-evaluation his bradycardia with rates into the 30s has significantly improved and is now in the upper 90s with occasional PVCs. He has been able to be weaned off BiPAP with oxygen saturations on 2 L maintaining in the mid 90 range. As he is off the BiPAP(he found the BiPAP very restrictive and was becoming increasingly agitated despite morphine for assistance with agitation) his respiratory rate is creeping up slightly. May need to have another couple of hours on BiPAP later this evening Discussion: 78-year-old gentleman we will need to be admitted for problems as below 1. Symptomatic bradycardia causing worsening of his congestive heart failure. He has been given glucagon and Digibind and the metoprolol and digoxin effects are far less noticeable. Remains in atrial fibrillation currently in the 90s 2. Significant congestive heart failure, we will continue Lasix. Most recent echocardiogram is May 31, 1922 and indicates an ejection fraction in the 35-40% range with concentric left ventricular hypertrophy and significant biatrial enlargement. 3. Respiratory failure secondary to congestive heart failure. Has responded initially to BiPAP. We will need further observation and may need BiPAP added back in. We will see how effect of the Lasix is in helping reduce some of the pulmonary edema 4. 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 Recently E coli and methicillin-sensitive Staph were appreciated. He currently is on ceftriaxone and vancomycin, we will need extremity elevation and wound care 5. Question of pneumonia. [place] to be less likely at this time. Viral panel is unremarkable. We will see if we can obtain a sputum sample. Was initially started on ceftriaxone and azithromycin. I do not think the azithromycin will need to be continued 6. Symptomatic bradycardia, chronic atrial fibrillation. Seems to be improving nicely with glucagon and Digibind. Will need continued cardiac monitoring and decision on rate control 7. Elevated INR at 5.0. No active bleeding at this time we will simply hold Coumadin. Do not think that oral vitamin K is required currently 8. Currently meeting criteria for severe sepsis without septic shock. Antibiotics have been initiated, repeat lactic is drawn. With his severe volume overload fluid resuscitation is not indicated Patient will need hospital admission, his primary care doctor is Dr. Hoover who is on-call this evening. Additional Information: Severe Sepsis Criteria [x ] bacterial source of infection suspected and documented [ ] 2 SIRS Criteria met [ ] HR >90 [ x] RR >20 [x ] fever or hypothermia [ ] leukocytosis/leukopenia/bandemia [ ] Evidence of at least 1 organ system dysfunction [x ] Lactate > 2 [ ] BP < 90 or MAP <65, >40mm decrease from normal baseline [ ] Creat > 2.0 [ ] T. Bili > 2.0 [ x] platelet count < 100k [ x] altered mental status [ ] mechanical ventilation [ ] provider documentation of severe sepsis Severe Sepsis Determination. the patient has been screened and [ x ] DOES meet criteria for severe sepsis [ ] DOES NOT meet criteria for severe sepsis Goal directed treatment Within 3 hours [ x ] blood cx drawn prior to abx [ x ] broad spectrum abx started [ x] lactic acid level checked [ x] lactic redrawn within 6 hours if >2.0 Septic Shock Criteria [ ] lactic > 4 at any time [ ] SBP ,90 or MAP , 65 [ ] documentation of septic shock Time Septic Shock diagnosed: [ ] Septic Shock Determination. the patient has been screened and [ ] DOES meet criteria for septic shock [ x] DOES NOT meet criteria for septic shock Goal directed therapy within 3 hours of septic shock or initial hypotension [ ] 30ml/kg fluid [ ] ABW used [ ] IBW (33.6) used due to BMI > 30 [ ] patient or advocate declining fluid administration after shared decision making conversation Clinical reason for NOT initiating fluid bolus: Within 6 hours (if continued hypotension after fluids or initial lactate >4) [ ] repeat volume status and tissue perfusion assessment documented after fluid bolus was completed at [Date/Time] Must include vital signs, cardiopulmonary exam, capillary refill, peripheral pulse evaluation, skin exam [ ] Initiate vasopressor therapy if persistent hypotension after adequate fluid bolus Critical Care Time Critical Care Time Critical Care Time: Yes Total Critical Care Time: 43 Attestation: Critical care time is separate from other billable procedures. There is a high probability of a significant, sudden or life-threatening deterioration that requires my full and direct attention, intervention and personal management. This critical care time includes consultation with family and other consulting doctors, review of records, and interpretation of data from labs, EKGs and imaging as well as managements of acute respiratory failure, symptomatic bradycardia, severe congestive heart failure and concerns for sepsis Discharge Plan Departure Patient Disposition: Admitted As Inpatient Clinical Impression: Thrombocytopenia, Elevated INR, Acute kidney injury superimposed on chronic kidney disease, Chronic cutaneous venous stasis ulcer, Bilateral cellulitis of lower leg Acute CHF (congestive heart failure) Qualifiers: Heart failure type: combined systolic and diastolic Qualified Code(s): I50.41 - Acute combined systolic (congestive) and diastolic (congestive) heart failure Respiratory failure Qualifiers: Chronicity: acute Respiratory failure complication: hypoxia and hypercapnia Q ualified Code(s): J96.01 - Acute respiratory failure with hypoxia Admit Date/Time: 09/28/23 21:02
--- NOTE | 2023-09-28 20:12 | PC.NURSE ---
Bilateral lower extremity wounds unwrapped to reveal wounds in multiple stages of poor healing. Left is worse than right w/ dark red skin, hot to touch, weaping wounds and large new blister on dorsum of foot. Multiple wounds go to knees. Dr. Rodriguez in to evaluate. Last change of dressings by [facility] last Thursday. states wounds are worse than the last time she saw them @ 7 days.
--- NOTE | 2023-09-28 20:35 | PC.NURSE ---
Reassessment: Pt continues to have labored breathing w/ any exertion including trying to talk. Able to speak in 1-3 word sentences. states at baseline is slightly confused but is worse. HR is improved to atrial fibrilation 90s w/ multiple PVCs. Speech is difficult to understand but states this is baseline. Course breath sounds. On 2 L NC off bipap however RR is noted to be to mid 20s to low 30s. Abd is softly distended w/ positive bowel sounds. Lower extremities bilaterally infected w/ multiple wounds. Culture sent. updated.
[2023-09-28 20:51] LABS: Lactate 2HR (Lactic Acid Rflx) 1.1 mmol/L (0.7-2.1)
[2023-09-28] MEDS: VANCOMYCIN 1,250 MG/250 ML PIGGYBACK 250 MG IV (21:02)
[2023-09-28] MEDS: OXYCODONE/ACETAMINOPHEN 5/325 TABLET 1 TAB PO (21:51)
--- NOTE | 2023-09-28 23:08 | PC.RNWOUND ---
Addendum entered by Denae Hancock R.N. 09/28/23 23:23: ^ Right foot Original Note: ^ Right leg (anterior view) ^ Right leg (posterior) ^ Left leg ^ Left leg (posterior) ^ Left leg ^ Left foot ^ Right arm
[2023-09-28] MEDS: HYDROMORPHONE 0.5 MG INJ IV (23:53)
[2023-09-29] VITALS (173 sets, daily range): BP systolic 125–157; BP diastolic 65–94; PULSE 80–176; RESP 10–44; TEMP 31–37.9; O2SAT 80–98
[2023-09-29 00:25] LABS: MRSA (Nasal) PCR Not Detected (Not Detect)
--- NOTE | 2023-09-29 01:25 | PC.NURSE ---
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 Patient is extremely hard of hearing & vision impaired, required use of a whiteboard to communicate w/ patient. Patient is alert to self and place, confused/forgetful. VSS, on tele showing afib, tachycardic in the 100's-110's. On 6L O2 via oximask, O2 saturation 93%. Coarse crackles noted upon auscultation, patient is SOB and has difficulty completing sentences. Temp WNL, bairhugger removed per patient request. Chronic skin wounds are extensive, photos uploaded, wound care notified. Complaints of generalized pain mainly in lower extremities, pain medication given as ordered. Page in place draining clear, orange urine. Call-light within reach, will continue to monitor.
[2023-09-29] MEDS: ACETAMINOPHEN 325 MG TABLET 650 MG PO (04:09)
[2023-09-29 04:54] LABS: Add Manual Diff / Slide Review NO; Basophils Absolute Auto 100 /uL (0-100); Basophils Percent Auto 0.7 % (0-2); Eosinophils Absolute Auto 100 /uL (0-450); Eosinophils Percent Auto 0.9 % (2-4); Hematocrit 33.7 % (41-53); Hemoglobin 10.9 g/dL (13.5-17.5); Lymphocytes Absolute Auto 1000 /uL (1100-4500); Lymphocytes Percent Auto 9.6 % (25-40); Mean Corpuscular HGB Conc 32.3 % (30-36); Mean Corpuscular Volume 86.5 fL (80-100); Monocytes Absolute Auto 800 /uL (0-900); Monocytes Percent Auto 7.1 % (3-14); Neutrophils Absolute Auto 8600 /uL (1500-7000); Neutrophils Percent Auto 81.7 % (50-75); Platelet Count 61 X10^3/uL (150-400); Red Cell Distribution Width 20.3 % (11.6-14.8); White Blood Cell Count 10.6 X10^3/uL (4.5-11.0)
[2023-09-29 04:56] LABS: Alanine Aminotransferase 37 IU/L (<50); Albumin 3.8 g/dL (3.5-5.0); Albumin Globulin Ratio 1.1 (1.0-2.8); Alkaline Phosphatase 110 U/L (38-126); BUN Creatinine Ratio 18.9 (6-22); Bilirubin Total 0.9 mg/dL (0.2-1.3); Blood Urea Nitrogen 43 mg/dL (9-20); Calcium 10.3 mg/dL (8.4-10.2); Carbon Dioxide 36 mmol/L (22-32); Chloride 96 mmol/L (98-107); Estimated Glomerular Filt Rate 29 mL/min (>60); Globulin 3.4 g/dL (1.7-4.1); Glucose 81 mg/dL (80-110); HEMOLYSIS < 15 (0-50); Potassium 4.8 mmol/L (3.4-5.1); Sodium 137 mmol/L (137-145); Total Protein 7.2 g/dL (6.3-8.2)
[2023-09-29] MEDS: LEVOTHYROXINE 137 MCG TABLET PO (05:03)
[2023-09-29 05:30] LABS: Acanthocytes 1+; Anisocytosis 3+; Macrocytosis 1+; Microcytosis 2+; Ovalocytes 2+; Polychromasia 1+; Tear Drop Cells 1+
[2023-09-29] MEDS: HYDROMORPHONE 0.5 MG INJ IV (05:50)
--- NOTE | 2023-09-29 09:14 | DI.ECHO.S_ITS ---
[place]---------+ [facility] +---------+ : : [address] : : : : [id number] : : : : Phone: [phone]+ Echocardiogram Report + + :Name: SHI POON Study Date: 09/29/2023 Height: 70 in : :[facility] ReadingLocation: Weight: 261 lb : : Gender: Male BSA: 2.3 m2 : :: 1945 Age: 78 yrs BP: 157/74 mmHg: :Reason For Study: HEART FAILURE : :Ordering Physician: SUMIT, : :ALYSSA Performed By: Magi Peters : :Referring: ALYSSA ARANA : + + Interpretation Summary The patient was in atrial fibrillation with heart rates between 103-139 bpm during the exam. The patient had frequent PVCs during the exam. The study quality was technically difficult. The ejection fraction is estimated to be 60-65%. Diastolic function could not be accurately assessed due to atrial fibrillation. Grossly the left atrium is at least moderately dilated. The right ventricle is moderate to severely dilated. Right ventricular systolic function is moderately reduced. The right atrium is moderately dilated. There is mild to moderate tricuspid regurgitation. The right ventricular systolic pressure is estimated to be at least 64 mmHg based on an estimated right atrial pressure of 15 mm Hg. The ascending aorta is mildly enlarged, 3.8 cm. Compared to the prior study dated 06/30/2022, the ejection fraction has increased. Procedure: A two-dimensional transthoracic echocardiogram with color flow and Doppler was performed. The study quality was technically difficult. Comparison is made with the echocardiogram of 06/30/2022. A contrast injection of Definity was performed to improve assessment of LV function. The patient had frequent PVCs during the exam. The patient was in atrial fibrillation with heart rates between 103-139 bpm during the exam. Left Ventricle: The left ventricular cavity is small. Left ventricular wall thickness is borderline increased. The ejection fraction is estimated to be 60-65%. Diastolic function could not be accurately assessed due to atrial fibrillation. Right Ventricle: The right ventricle is moderate to severely dilated. Right ventricular systolic function is moderately reduced. Atria: Grossly the left atrium is at least moderately dilated. The right atrium is moderately dilated. There is no Doppler evidence for an interatrial shunt. Mitral Valve: There is moderate to severe mitral annular calcification. The mitral valve mean gradient is 4.1 mmHg. There is trace mitral regurgitation. Aortic Valve: The aortic valve is mildly calcified. There is mild aortic valve sclerosis. The aortic valve is trileaflet. There is no aortic valve stenosis. No aortic regurgitation is present. Tricuspid Valve: The tricuspid valve is not well visualized, but is grossly normal. There is mild to moderate tricuspid regurgitation. The right ventricular systolic pressure is estimated to be at least 64 mmHg based on an estimated right atrial pressure of 15 mm Hg. Pulmonic Valve: The pulmonic valve is not well visualized. Great Vessels: The aortic root is normal size. The ascending aorta is mildly enlarged. The IVC is dilated (diameter is greater than 2.1 cm) and it collapses less than 50% with a sniff. This suggests a high right atrial pressure of 15 mm Hg. Pericardium/ Pleura There is no pericardial effusion. There is no pleural effusion. MMode/2D Measurements & Calculations LVIDd: 3.6 cm LVOT diam: 2.1 cm LVIDs: 2.8 cm Ao root diam: 3.8 cm FS: 20.1 % asc Aorta Diam: 3.8 cm IVSd: 1.1 cm LVPWd: 1.00 cm LV tapia. diameter/BSA (cm/m^2): 1.5 LV sys. diameter/BSA (cm/m^2): 1.2 LA A4 area: 27.7 cm2 RA long axis: 5.4 cm LA length (vol): 5.9 cm RA area: 24.7 cm2 RA vol: 96.2 ml RA : 41.1 ml/m2 IVC diam: 2.6 cm RVD1 (basal): 4.5 cm RVD2 (mid): 3.4 cm TAPSE: 1.5 cm Doppler Measurements & Calculations Ao V2 max: 182.2 cm/sec LVOT Max Pete: 102.6 cm/sec Ao V2 mean: 122.6 cm/sec LV V1 max P.2 mmHg Ao max P.3 mmHg LV V1 VTI: 16.0 cm Ao mean P.9 mmHg DAGOBERTO(I,D): 2.1 cm2 Ao V2 VTI: 27.5 cm DAGOBERTO(V,D): 2.0 cm2 sev ratio: 0.58 DAGOBERTO indexed to BSA (cm^2/m^2): 0.88 MV E max pete: 129.0 cm/sec TR max pete: 348.2 cm/sec MV A max pete: 0.65 cm/sec TR max P.5 mmHg MV E/A: 197.9 PA V2 max: 97.8 cm/sec Med Peak E' Pete: 8.2 cm/sec PA V2 mean: 63.4 cm/sec E/E' med: 15.8 PA mean P.9 mmHg Lat Peak E' Pete: 9.7 cm/sec PA pr(Accel): 55.0 mmHg E/E' lat: 13.3 E/e' average: 14.6 MV dec time: 0.29 sec MVA(VTI): 1.7 cm2 MV V2 mean: 89.9 cm/sec SV(LVOT): 56.3 ml MV mean P.2 mmHg MV V2 VTI: 34.0 cm Reading Physician:[id number] PM
[2023-09-29] MEDS: TAMSULOSIN 0.4 MG CAPSULE 0.8 MG PO (09:40)
[2023-09-29] MEDS: PANTOPRAZOLE DR 40 MG TABLET PO (09:40)
[2023-09-29] MEDS: FUROSEMIDE 80 MG in SODIUM CHLORIDE 0.9% 50 ML 116 MG IV (09:58)
--- NOTE | 2023-09-29 13:22 | PM.HP.1 ---
History of Present Illness History of Present Illness Date Patient Seen: 09/29/23 Time Patient Seen: 13:22 Chief complaint: SOB/retaining water/swollen legs Narrative: Patient presents to the ER for evaluation of worsening confusion, progressive weakness and fatigue. His provides the history as patient is severely hard of hearing. In the emergency room he was found to be severely hypoxic initially requiring BiPAP but then was unable to tolerate this and after receiving IV Lasix his oxygenation improved. He had significant bradycardia into the 30s and therefore Digibind was given to reverse the metoprolol and digoxin effect. He had a good response to this. Patient was found to be hypothermic with elevated respiratory rate and therefore met SIRS criteria but did not meet requirement for septic shock and was not given IV fluid hydration because it was felt that he was in heart failure with an markedly elevated BNP. He is followed by wound care for his chronic lower extremity wound ulcers but has not been seen by wound care for 3 weeks. He has had home health coming in. They deny any recent chest pain or cough or fever or abdominal pain or change in his bowels or rectal bleeding or hematuria. They deny any rashes. They state that he has been taking his medications. Past medical history: 1. CHF 2. Chronic AFib, patient has refused to see Cardiology in the past. Has been referred many times. 3. Chronic anticoagulation due to chronic AFib 4. DVT 5. Essential hypertension 6. GERD 7. BPH with obstruction/lower urinary tract symptoms 8. Chronic kidney disease stage 3 9. Chronic lower extremity ulcers, currently managed by wound care 10. Hypercholesterolemia 11. Peripheral edema 12. Cellulitis 13. Hyponatremia 14. Hypokalemia 15. Depression 16. Hypothyroidism 17. Previous history of alcohol abuse 18. Severe hearing impairment Past surgical history: Appendectomy Family history: Negative for any CVA, diabetes Parent with CHF Social history: Patient is and lives with his in [facility]. His works at [employer] in the [employer]. They live in a trailer locally Health related behavior Patient has never been a smoker Patient does not use alcohol or illicit drugs Patient denies any fevers, rashes Patient has been having fatigue and shortness of breath [facility] Medical History Alcohol abuse GERD (gastroesophageal reflux disease) Mixed hyperlipidemia Essential hypertension Congestive heart failure Hypothyroidism Depression Venous stasis Esophageal ulceration Surgical History Status post appendectomy Family History Other Congestive heart failure Social History household members: spouse Smoking Status: Never smoker alcohol intake: never Meds Home Medications and Allergies Home Medications Medication Instructions Recorded Confirmed Type pantoprazole 40 mg tablet,delayed 40 mg PO DAILY #30 tabs 03/03/21 09/28/23 Rx release pravastatin 20 mg tablet 40 mg (2 x 20 mg) PO BEDTIME #30 03/03/21 09/28/23 Rx tabs tamsulosin 0.4 mg capsule (Flomax) 0.8 mg (2 x 0.4 mg) PO DAILY #60 07/28/21 09/28/23 Rx caps potassium chloride 20 mEq 40 meq (2 x 20 mEq) PO DAILYCC #30 11/01/21 09/28/23 Rx tablet,extended tabs release(part/cryst) (Klor-Con M) digoxin 125 mcg (0.125 mg) tablet 0.125 mg PO Q48H #60 tabs 07/04/22 09/28/23 Rx metoprolol succinate 50 mg 25 mg (1/2 x 50 mg) PO BID #90 tabs 07/04/22 09/28/23 Rx tablet,extended release 24 hr levothyroxine 137 mcg tablet 137 mcg PO 0600 #30 tabs 10/16/22 09/28/23 Rx warfarin 5 mg tablet 5 mg PO DAILY@1700 #30 tabs 10/16/22 09/28/23 Rx spironolactone 25 mg tablet 12.5 mg PO DAILY 09/28/23 09/28/23 History torsemide 10 mg tablet 10 mg PO QPM 09/28/23 09/28/23 History torsemide 10 mg tablet 20 mg PO QAM 09/28/23 09/28/23 History Allergies Allergy/AdvReac Type Severity Reaction Status Date / Time Penicillins [PENICILLINS] AdvReac Intermediate Gastrointestinal Verified 09/28/23 18:38 Upset Review of Systems Review of Systems Narrative: Patient is a poor historian. Reviewed ER note 12 point review of systems otherwise is negative other than HPI Exam Vital Signs (past 8 hours): - 09/29/23 05:25 09/29/23 05:30 09/29/23 05:35 Temperature 99.5 F 99.5 F 99.5 F Pulse Rate 133 H 118 H 132 H Respiratory Rate 28 H 36 H Blood Pressure Pulse Oximetry 89 L 90 L 86 L Oxygen Delivery Method Oxygen Flow Rate 09/29/23 05:40 09/29/23 05:45 09/29/23 05:50 Temperature 99.5 F 99.5 F 99.5 F Pulse Rate 126 H 169 H 132 H Respiratory Rate 22 22 28 H Blood Pressure Pulse Oximetry 86 L 91 Oxygen Delivery Method Oxygen Flow Rate 09/29/23 05:55 09/29/23 06:00 09/29/23 06:05 Temperature 99.5 F 99.5 F 99.7 F H Pulse Rate 136 H 176 H 118 H Respiratory Rate 26 H 32 H 23 Blood Pressure Pulse Oximetry 96 95 95 Oxygen Delivery Method Oxygen Flow Rate 09/29/23 06:10 09/29/23 06:15 09/29/23 06:20 Temperature 99.7 F H 99.7 F H 99.7 F H Pulse Rate 126 H 112 H 104 H Respiratory Rate 24 21 19 Blood Pressure Pulse Oximetry 95 92 85 L Oxygen Delivery Method Oxygen Flow Rate 09/29/23 06:25 09/29/23 06:30 09/29/23 06:35 Temperature 99.7 F H 99.7 F H 99.9 F H Pulse Rate 166 H 133 H 132 H Respiratory Rate 29 H 21 Blood Pressure Pulse Oximetry Oxygen Delivery Method Oxygen Flow Rate 09/29/23 06:40 09/29/23 06:45 09/29/23 06:50 Temperature 99.7 F H 99.7 F H 99.7 F H Pulse Rate 134 H 111 H 127 H Respiratory Rate 20 21 21 Blood Pressure Pulse Oximetry 92 95 95 Oxygen Delivery Method Oxygen Flow Rate 09/29/23 06:55 09/29/23 07:00 09/29/23 07:05 Temperature 99.9 F H 99.7 F H 99.7 F H Pulse Rate 121 H 130 H 125 H Respiratory Rate 29 H 14 Blood Pressure Pulse Oximetry 96 93 Oxygen Delivery Method Oxygen Flow Rate 09/29/23 07:10 09/29/23 07:15 09/29/23 07:20 Temperature 99.7 F H 99.7 F H 99.7 F H Pulse Rate 129 H 124 H 124 H Respiratory Rate Blood Pressure Pulse Oximetry Oxygen Delivery Method Oxygen Flow Rate 09/29/23 07:25 09/29/23 07:30 09/29/23 07:35 Temperature 99.7 F H 99.7 F H 99.9 F H Pulse Rate 143 H 129 H 127 H Respiratory Rate Blood Pressure Pulse Oximetry Oxygen Delivery Method Oxygen Flow Rate 09/29/23 07:38 09/29/23 07:38 09/29/23 07:40 Temperature 99.9 F H 99.9 F H Pulse Rate 132 H 129 H Respiratory Rate 29 H 26 H Blood Pressure 157/74 H Pulse Oximetry 96 Oxygen Delivery Method Oxygen Flow Rate 09/29/23 07:43 09/29/23 07:45 09/29/23 07:50 Temperature 99.7 F H 99.9 F H Pulse Rate 114 H 130 H Respiratory Rate 24 24 Blood Pressure Pulse Oximetry 95 Oxygen Delivery Method Oximask Oxygen Flow Rate 09/29/23 07:55 09/29/23 08:06 09/29/23 09:16 Temperature 99.7 F H 98.7 F Pulse Rate 133 H 130 H Respiratory Rate 25 H 25 H Blood Pressure 157/74 H Pulse Oximetry 94 96 93 Oxygen Delivery Method Oximask Oxygen Flow Rate 6 6 09/29/23 12:00 Temperature Pulse Rate 110 H Respiratory Rate 22 Blood Pressure 150/82 H Pulse Oximetry 97 Oxygen Delivery Method Oxygen Flow Rate 7 Fraction of Inspired Oxygen 35 Oxygen Delivery Method Oximask Oxygen Flow Rate 7 Narrative Exam Narrative: Patient very difficult to talk to due to severe hearing impairment. Patient states that his right lower extremity is painful. Heart rate now in the 1 teens to low 100s. O2 sat on 7 L nasal cannula oxygen is 90 7-99% Patient is afebrile HEENT is remarkable for severe hearing loss. No mucosal lesions oral mucosa Neck: Supple Chest: Diffuse expiratory wheezes with decreased breath sounds bibasilar Cor: Irregularly irregular rhythm in the 1 teens Abdomen: Obese positive bowel sounds x4, nontender Extremities show 1+ pitting edema pretibial pedal. Patient with vesicles and ulcers bilateral lower leg and dorsum of the feet. Right foot with increased warmth and erythema surrounding the wound on the right lower extremity Pulses trace to 1+ dorsalis pedis even despite the edema Neurologic exam is nonfocal Objective Labs 09/29/23 04:12 09/29/23 04:12 Labs: Laboratory Results - last 24 hr 09/28/23 09/28/23 09/28/23 16:56 17:10 17:30 WBC 10.3 RBC 3.94 L Hgb 11.1 L Hct 34.0 L MCV 86.3 MCH 28.2 MCHC 32.7 RDW 19.9 H Plt Count 57 L Neut % (Auto) 80.9 H Lymph % (Auto) 12.0 L [place] % (Auto) 5.9 Eos % (Auto) 1.0 L Baso % (Auto) 0.2 Neut # (Auto) 8300 H Lymph # (Auto) 1200 [place] # (Auto) 600 Eos # (Auto) 100 Baso # (Auto) 0 RBC Morphology Polychromasia Anisocytosis Microcytosis Macrocytosis Tear Drop Cells Ovalocytes Acanthocytes (Spur) PT 58.6 H INR 5.0 H* APTT 59 H VBG pH VBG pCO2 VBG pO2 VBG HCO3 VBG Total CO2 VBG O2 Saturation VBG Base Excess FiO2 Sodium 137 Potassium 5.1 Chloride 96 L Carbon Dioxide 31 BUN 44 H Creatinine 1.76 H Estimated GFR 39 L BUN/Creatinine Ratio 25.0 H Glucose 105 Lactate 2.5 H Calcium 10.5 H Magnesium 2.4 H Total Bilirubin 1.3 AST 113 H ALT 45 Alkaline Phosphatase 106 Total Creatine Kinase 128 Troponin I 0.012 NT-Pro-B Natriuret Pep 2540 H Total Protein 7.9 Albumin 4.2 Globulin 3.7 Albumin/Globulin Ratio 1.1 Lipase 74 Procalcitonin 0.09 Urine Color Yellow Urine Appearance Clear Urine pH 7.0 Ur Specific [place] 1.010 Urine Protein Negative Urine Glucose (UA) Negative Urine Ketones Negative Urine Occult Blood Negative Urine Nitrate Negative Urine Bilirubin Negative Urine Urobilinogen 0.2 Ur Leukocyte Esterase Negative Urine RBC None seen Urine WBC 1-5/hpf Ur Squamous Epith Cells None seen Ur Renal Epithelial Cell 5-10/hpf H Urine Bacteria None seen Ur Culture Indicated? Cult not indicated Nasal Screen MRSA (PCR) Digoxin < 0.4 L Chlamy pneumoniae PCR Not detected Adenovirus (PCR) Not detected B.parapertussis DNA PCR Not detected Coronavirus OC43 (PCR) Not detected Coronavirus HKU1 (PCR) Not detected Coronavirus 229E (PCR) Not detected SARS-CoV-2 (PCR) Not detected Coronavirus NL63 (PCR) Not detected Human Metapneumovir PCR Not detected Influenza Type A (PCR) Not detected Influenza Type B (PCR) Not detected M. pneumoniae (PCR) Not detected Parainfluenza 1 (PCR) Not detected Parainfluenza 2 (PCR) Not detected Parainfluenza 3 (PCR) Not detected Parainfluenza 4 (PCR) Not detected RSV (PCR) Not detected Entero/Rhino (PCR) Not detected 09/28/23 09/28/23 09/28/23 18:34 19:00 20:32 WBC RBC Hgb Hct MCV MCH MCHC RDW Plt Count Neut % (Auto) Lymph % (Auto) [place] % (Auto) Eos % (Auto) Baso % (Auto) Neut # (Auto) Lymph # (Auto) [place] # (Auto) Eos # (Auto) Baso # (Auto) RBC Morphology Polychromasia Anisocytosis Microcytosis Macrocytosis Tear Drop Cells Ovalocytes Acanthocytes (Spur) PT INR APTT VBG pH 7.45 H VBG pCO2 50.3 H VBG pO2 57 H VBG HCO3 35 H VBG Total CO2 36 H VBG O2 Saturation 90 H VBG Base Excess 11.0 H FiO2 35 Sodium Potassium Chloride Carbon Dioxide BUN Creatinine Estimated GFR BUN/Creatinine Ratio Glucose Lactate 1.1 Calcium Magnesium Total Bilirubin AST ALT Alkaline Phosphatase Total Creatine Kinase Troponin I < 0.012 NT-Pro-B Natriuret Pep Total Protein Albumin Globulin Albumin/Globulin Ratio Lipase Procalcitonin Urine Color Urine Appearance Urine pH Ur Specific [place] Urine Protein Urine Glucose (UA) Urine Ketones Urine Occult Blood Urine Nitrate Urine Bilirubin Urine Urobilinogen Ur Leukocyte Esterase Urine RBC Urine WBC Ur Squamous Epith Cells Ur Renal Epithelial Cell Urine Bacteria Ur Culture Indicated? Nasal Screen MRSA (PCR) Digoxin Chlamy pneumoniae PCR Adenovirus (PCR) B.parapertussis DNA PCR Coronavirus OC43 (PCR) Coronavirus HKU1 (PCR) Coronavirus 229E (PCR) SARS-CoV-2 (PCR) Coronavirus NL63 (PCR) Human Metapneumovir PCR Influenza Type A (PCR) Influenza Type B (PCR) M. pneumoniae (PCR) Parainfluenza 1 (PCR) Parainfluenza 2 (PCR) Parainfluenza 3 (PCR) Parainfluenza 4 (PCR) RSV (PCR) Entero/Rhino (PCR) 09/28/23 09/29/23 22:20 04:12 WBC 10.6 RBC 3.90 L Hgb 10.9 L Hct 33.7 L MCV 86.5 MCH 28.0 MCHC 32.3 RDW 20.3 H Plt Count 61 L Neut % (Auto) 81.7 H Lymph % (Auto) 9.6 L [place] % (Auto) 7.1 Eos % (Auto) 0.9 L Baso % (Auto) 0.7 Neut # (Auto) 8600 H Lymph # (Auto) 1000 L [place] # (Auto) 800 Eos # (Auto) 100 Baso # (Auto) 100 RBC Morphology See below Polychromasia 1+ H Anisocytosis 3+ H Microcytosis 2+ H Macrocytosis 1+ H Tear Drop Cells 1+ H Ovalocytes 2+ H Acanthocytes (Spur) 1+ PT INR APTT VBG pH VBG pCO2 VBG pO2 VBG HCO3 VBG Total CO2 VBG O2 Saturation VBG Base Excess FiO2 Sodium 137 Potassium 4.8 Chloride 96 L Carbon Dioxide 36 H BUN 43 H Creatinine 2.28 H Estimated GFR 29 L BUN/Creatinine Ratio 18.9 Glucose 81 Lactate Calcium 10.3 H Magnesium Total Bilirubin 0.9 AST TNP ALT 37 Alkaline Phosphatase 110 Total Creatine Kinase Troponin I NT-Pro-B Natriuret Pep Total Protein 7.2 Albumin 3.8 Globulin 3.4 Albumin/Globulin Ratio 1.1 Lipase Procalcitonin Urine Color Urine Appearance Urine pH Ur Specific [place] Urine Protein Urine Glucose (UA) Urine Ketones Urine Occult Blood Urine Nitrate Urine Bilirubin Urine Urobilinogen Ur Leukocyte Esterase Urine RBC Urine WBC Ur Squamous Epith Cells Ur Renal Epithelial Cell Urine Bacteria Ur Culture Indicated? Nasal Screen MRSA (PCR) Not detected Digoxin Chlamy pneumoniae PCR Adenovirus (PCR) B.parapertussis DNA PCR Coronavirus OC43 (PCR) Coronavirus HKU1 (PCR) Coronavirus 229E (PCR) SARS-CoV-2 (PCR) Coronavirus NL63 (PCR) Human Metapneumovir PCR Influenza Type A (PCR) Influenza Type B (PCR) M. pneumoniae (PCR) Parainfluenza 1 (PCR) Parainfluenza 2 (PCR) Parainfluenza 3 (PCR) Parainfluenza 4 (PCR) RSV (PCR) Entero/Rhino (PCR) Assessment & Plan Assessment & Plan narrative: 78-year-old male admitted to the hospital with severe sepsis syndrome of suspected etiology from lower extremity cellulitis. This is hospital day 1. 78-year-old gentleman 1. Symptomatic bradycardia causing worsening of his congestive heart failure. He has been given glucagon and Digibind and the metoprolol and digoxin effects are far less noticeable. Remains in atrial fibrillation currently in the 90s 2. Significant congestive heart failure, we will continue Lasix. Reviewed most recent echo and repeat echo was done. Will continue with IV Lasix and continue monitoring however worsened renal function will have to continue to monitor and watch closely. At this point will hold spironolactone and digoxin due to bradycardia on presentation. Will check dig level. 3. Respiratory failure secondary to congestive heart failure. Has responded initially to BiPAP. We will need further observation and may need BiPAP added back in. We will see how effect of the Lasix is in helping reduce some of the pulmonary edema. Will treat atrial fibrillation as well. Will treat infection as well. Patient is DNR. 4. 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 Recently E coli and methicillin-sensitive Staph were appreciated. He currently is on ceftriaxone. He initially received azithromycin and we will discontinue this. He also received a dose of vancomycin. At this point we will hold on this. Will do a MRSA swab. If this is negative will keep him off the vancomycin. He would not be due for next dose until possibly tomorrow given his current renal function and anticipated further diuresis. Wound care has been consulted 5. Question of pneumonia. Spangler to be less likely at this time. Viral panel is unremarkable. We will see if we can obtain a sputum sample. Was initially started on ceftriaxone and azithromycin. I do not think the azithromycin will need to be continued. Azithromycin is discontinued at this time. 6. Symptomatic bradycardia, chronic atrial fibrillation. Seems to be improving nicely with glucagon and Digibind. Will need continued cardiac monitoring and decision on rate control. Elevation in heart rate this morning. Seems to improve with diuresis. We will continue to monitor. Will see what echo shows. 7. Elevated INR at 6.5 today. No active bleeding at this time we will simply hold Coumadin. Do not think that oral vitamin K is required currently. Will recheck INR in a.m. if not decreasing or is elevated will give oral vitamin K 8. Currently meeting criteria for severe sepsis without septic shock. Antibiotics have been initiated, repeat lactic is drawn. With his severe volume overload fluid resuscitation is not indicated Will continue with treating with antibiotics. 9. AFib with chronic anticoagulation. Was bradycardic when he presented now with some tachycardia. We will diurese. Will continue to monitor. Will initiate metoprolol if heart rate remains elevated. And will check digoxin level 10. GI prophylaxis Plan: Continue oral pantoprazole 11. DVT prophylaxis. Currently supratherapeutic on INR. Continue holding Coumadin and doing daily INRs Assessment 12. Will check TSH 13. Hypokalemia plan: Will monitor 14. BPH. Plan continue Flomax Additional Information: Severe Sepsis Criteria [x ] bacterial source of infection suspected and documented [ ] 2 SIRS Criteria met [ ] HR >90 [ x] RR >20 [x ] fever or hypothermia [ ] leukocytosis/leukopenia/bandemia [ ] Evidence of at least 1 organ system dysfunction [x ] Lactate > 2 [ ] BP < 90 or MAP <65, >40mm decrease from normal baseline [ ] Creat > 2.0 [ ] T. Bili > 2.0 [ x] platelet count < 100k [ x] altered mental status [ ] mechanical ventilation [ ] provider documentation of severe sepsis Severe Sepsis Determination. the patient has been screened and [ x ] DOES meet criteria for severe sepsis [ ] DOES NOT meet criteria for severe sepsis Goal directed treatment Within 3 hours [ x ] blood cx drawn prior to abx [ x ] broad spectrum abx started [ x] lactic acid level checked [ x] lactic redrawn within 6 hours if >2.0 Code status is DNR 77 minutes was spent with patient who is new to [place]. Reviewed clinic chart, discussed with physician, discussed with nursing, discussed with pharmacy and reviewed ER workup and diagnostics and met with patient. Time included required formulating a plan and documentation. Quality VTE Deep Vein Thrombosis/Pulmonary Embolism Present on Admission: No
[2023-09-29 13:30] LABS: Prothrombin Time 76.1 SECONDS (9.4-12.5)
[2023-09-29 13:43] LABS: INR 6.5 (0.9-1.3)
[2023-09-29 15:01] LABS: Magnesium 2.1 mg/dL (1.6-2.3)
[2023-09-29 15:12] LABS: NT-proBNP (BNP-Adult 18+) 3070 pg/mL (<450)
[2023-09-29 15:23] LABS: Digoxin 1.2 ng/mL (0.8-2.0)
--- NOTE | 2023-09-29 15:33 | CM.DANOTE ---
Initial DCP Assessment Visit Note Reviewed EMR and team rounds for pt's medical status and initial anticipated d/c needs. Met with pt, son, and spouse at bedside to introduce self and role. Pt was receiving woundcare, appeared SOB, and uncomfortable during this visit. Payor: [employer] PCP: Dr. Hoover Pt is a 78 year-old M with a hx of Afib, hypothyroidism, chronic CHF, hyperlipidemia, and chronic lower extremity wounds requiring weekly woundcare visits presented to the ED on 09/28/23 with worsening cough, weakness/fatigue, worsening confusion and SOB. Pt has had multiple hospitalizations for same issues, last of which was in 09/2022. Pt does not use O2 at baseline, now is requiring 3LO2. 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 They also have a dtr who lives down in [place] that is supportive and assists family as needed as well. Pt was started on O2 and IV ABO's in the ED, then admitted to the floor for further evaluation/tx for sepsis, CHF exacerbation, and acute hypoxic respiratory failure. DCP will follow and monitor for efficacy of inpt IV ABO's and PT/OT/Woundcare recommendations for d/c. Discharge Planning/Care Management Advanced directive, confirm from FAMILY Start: 09/28/23 22:46 Freq: Q24H Status: Active Protocol: Document 09/28/23 22:46 TLS (Rec: 09/28/23 23:01 TLS [id number]) Advance Directive, confirm on record Time 23:01 Person contacted chart Copy received Yes Advanced directive available on record Yes CM Discharge Assessment Start: 09/29/23 15:24 Freq: Status: Active Protocol: Document 09/29/23 15:24 DPL (Rec: 09/29/23 15:33 DPL [id number]) Discharge Planning Assessment Assigned Plant Production Manager DAVIE Shah Advance Directives? Yes: YAW Advance Directives on File Yes History Provided By Patient,Family Member,Medical Record Has Patient been admitted in last 30 No days? Prior Living Arrangements House Household Members spouse Type of transporation used prior to Relies on Others admit Independent with ADL's Yes: with 's assistance Is patient alert and oriented? Yes Needs Assistance With Home Chores / Shopping Caregiver for Another No Community Services used prior to Wound Care admission: Comment Weekly woundcare visits for chronic lower extremity leg wounds. Comment Patient uses a walker, lives in a trailer. Patient/Family Preference Home with Home Health Comment . Comment Patient indicated that he does live spouse, son next door. Discharge Plan Home with Home Health Transportation Arrangement Family Referrals Initiated Home Health Additional Comment Will resume Home Health woundcare services once medically ready for d/c. If patient plan is home with home health No : Has signed face to face form been completed? Whiteboard Updated in Patient Room with Yes name and ext. # of Plant Production Manager Review Status In Process Please Provide Date Initial DC 09/29/22 Assessment Was Performed
--- NOTE | 2023-09-29 15:50 | P.CONS_ITS ---
History of Present Illness Consult details Date Patient Seen: 09/29/23 Time Patient Seen: 15:30 Chief complaint: SOB/retaining water/swollen legs Reason for consult: Lower extremity ulcers Narrative: The patient is a 78-year-old male with CHF, stage 3 chronic kidney disease, AFib, and history of bilateral lower extremity venous ulcers who was admitted to the hospital earlier today for treatment of exacerbation of CHF. He was noted to have bilateral lower extremity ulcers and a wound consult was obtained. The patient is routinely followed at the wound center where he has been receiving dressing changes with Hydrofera blue, Adaptic, and two-layer light compression. Most recently the ulcers have been enlarging. Previous cultures have grown MRSA and he has previously been treated with linezolid and doxycycline however he has not recently had any antibiotic therapy. The patient remains on chronic anticoagulation. The patient reports that the ulcers are painful. Meds Home Medications and Allergies Home Medications Medication Instructions Recorded Confirmed Type pantoprazole 40 mg tablet,delayed 40 mg PO DAILY #30 tabs 03/03/21 09/28/23 Rx release pravastatin 20 mg tablet 40 mg (2 x 20 mg) PO BEDTIME #30 03/03/21 09/28/23 Rx tabs tamsulosin 0.4 mg capsule (Flomax) 0.8 mg (2 x 0.4 mg) PO DAILY #60 07/28/21 09/28/23 Rx caps potassium chloride 20 mEq 40 meq (2 x 20 mEq) PO DAILYCC #30 11/01/21 09/28/23 Rx tablet,extended tabs release(part/cryst) (Klor-Con M) digoxin 125 mcg (0.125 mg) tablet 0.125 mg PO Q48H #60 tabs 07/04/22 09/28/23 Rx metoprolol succinate 50 mg 25 mg (1/2 x 50 mg) PO BID #90 tabs 07/04/22 09/28/23 Rx tablet,extended release 24 hr levothyroxine 137 mcg tablet 137 mcg PO 0600 #30 tabs 10/16/22 09/28/23 Rx warfarin 5 mg tablet 5 mg PO DAILY@1700 #30 tabs 10/16/22 09/28/23 Rx spironolactone 25 mg tablet 12.5 mg PO DAILY 09/28/23 09/28/23 History torsemide 10 mg tablet 10 mg PO QPM 09/28/23 09/28/23 History torsemide 10 mg tablet 20 mg PO QAM 09/28/23 09/28/23 History Allergies Allergy/AdvReac Type Severity Reaction Status Date / Time Penicillins [PENICILLINS] AdvReac Intermediate Gastrointestinal Verified 09/28/23 18:38 Upset Review of Systems Review of Systems Narrative: Unable to obtain Exam Vital Signs (past 8 hours): - 09/29/23 07:55 09/29/23 08:06 09/29/23 09:16 Temperature 99.7 F H 98.7 F Pulse Rate 133 H 130 H Respiratory Rate 25 H 25 H Blood Pressure 157/74 H Pulse Oximetry 94 96 93 Oxygen Delivery Method Oximask Oxygen Flow Rate 6 6 09/29/23 10:25 09/29/23 10:30 09/29/23 10:35 Temperature 100.0 F H 100.0 F H 100.0 F H Pulse Rate 123 H 106 H 102 H Respiratory Rate 25 H 25 H 23 Blood Pressure Pulse Oximetry 96 96 96 Oxygen Delivery Method Oxygen Flow Rate 09/29/23 10:40 09/29/23 10:45 09/29/23 10:50 Temperature 100.0 F H 100.0 F H 100.0 F H Pulse Rate 105 H 114 H 114 H Respiratory Rate 22 23 23 Blood Pressure Pulse Oximetry 94 95 94 Oxygen Delivery Method Oxygen Flow Rate 09/29/23 10:55 09/29/23 11:00 09/29/23 11:05 Temperature 100.0 F H 100.0 F H 100.0 F H Pulse Rate 116 H 116 H 117 H Respiratory Rate 27 H 38 H 31 H Blood Pressure Pulse Oximetry 94 93 94 Oxygen Delivery Method Oxygen Flow Rate 09/29/23 11:10 09/29/23 11:15 09/29/23 11:20 Temperature 100.0 F H 100.0 F H 100.0 F H Pulse Rate 109 H 116 H 120 H Respiratory Rate 21 22 29 H Blood Pressure Pulse Oximetry 94 94 94 Oxygen Delivery Method Oxygen Flow Rate 09/29/23 11:25 09/29/23 11:30 09/29/23 11:35 Temperature 100.0 F H 100.0 F H 100.0 F H Pulse Rate 117 H 106 H 111 H Respiratory Rate 22 24 23 Blood Pressure Pulse Oximetry 93 94 Oxygen Delivery Method Oxygen Flow Rate 09/29/23 11:40 01/02/24 11:45 09/29/23 11:50 Temperature 100.0 F H 100.0 F H 100.0 F H Pulse Rate 110 H 113 H 105 H Respiratory Rate 22 20 21 Blood Pressure Pulse Oximetry Oxygen Delivery Method Oxygen Flow Rate 09/29/23 11:55 09/29/23 12:00 09/29/23 12:00 Temperature 100.0 F H 100.0 F H Pulse Rate 122 H 110 H 104 H Respiratory Rate 24 22 22 Blood Pressure 150/82 H Pulse Oximetry 97 Oxygen Delivery Method Oxygen Flow Rate 7 09/29/23 12:05 09/29/23 12:10 09/29/23 12:15 Temperature 100.0 F H 100.0 F H 100.0 F H Pulse Rate 114 H 118 H 109 H Respiratory Rate 25 H 25 H 23 Blood Pressure Pulse Oximetry 97 Oxygen Delivery Method Oxygen Flow Rate 09/29/23 12:20 09/29/23 12:21 09/29/23 12:21 Temperature 100.0 F H 100.0 F H Pulse Rate 125 H 111 H Respiratory Rate 23 24 Blood Pressure 150/82 H Pulse Oximetry 96 95 Oxygen Delivery Method Oxygen Flow Rate 09/29/23 12:25 09/29/23 12:30 09/29/23 12:35 Temperature 100.0 F H 100.0 F H 100.0 F H Pulse Rate 129 H 141 H 141 H Respiratory Rate 27 H 32 H 30 H Blood Pressure Pulse Oximetry 94 93 91 Oxygen Delivery Method Oxygen Flow Rate 09/29/23 12:40 09/29/23 12:45 09/29/23 12:50 Temperature 100.0 F H 100.0 F H 100.0 F H Pulse Rate 119 H 118 H 109 H Respiratory Rate 27 H 40 H 24 Blood Pressure Pulse Oximetry 97 97 96 Oxygen Delivery Method Oxygen Flow Rate 09/29/23 12:55 09/29/23 13:00 09/29/23 13:05 Temperature 100.0 F H 100.0 F H 100.0 F H Pulse Rate 110 H 104 H 97 H Respiratory Rate 29 H 23 20 Blood Pressure Pulse Oximetry 95 93 92 Oxygen Delivery Method Oxygen Flow Rate 09/29/23 13:10 09/29/23 13:15 09/29/23 13:20 Temperature 100.0 F H 100.0 F H 100.0 F H Pulse Rate 104 H 109 H 115 H Respiratory Rate 21 20 27 H Blood Pressure Pulse Oximetry 92 92 95 Oxygen Delivery Method Oxygen Flow Rate 09/29/23 13:25 09/29/23 13:30 09/29/23 13:35 Temperature 100.0 F H 100.0 F H 100.2 F H Pulse Rate 116 H 117 H 113 H Respiratory Rate 26 H 26 H 24 Blood Pressure Pulse Oximetry 95 94 87 L Oxygen Delivery Method Oxygen Flow Rate 09/29/23 13:40 09/29/23 13:45 09/29/23 13:50 Temperature 100.2 F H 100.2 F H 100.2 F H Pulse Rate 103 H 114 H 111 H Respiratory Rate 22 27 H 27 H Blood Pressure Pulse Oximetry 88 L 94 95 Oxygen Delivery Method Oxygen Flow Rate 09/29/23 13:55 09/29/23 14:00 09/29/23 14:05 Temperature 100.2 F H 100.2 F H 100.2 F H Pulse Rate 114 H 110 H 109 H Respiratory Rate 33 H 26 H 24 Blood Pressure Pulse Oximetry 92 93 94 Oxygen Delivery Method Oxygen Flow Rate 09/29/23 14:10 09/29/23 14:15 09/29/23 14:20 Temperature 100.2 F H 100.2 F H 100.2 F H Pulse Rate 104 H 105 H 116 H Respiratory Rate 28 H 28 H 33 H Blood Pressure Pulse Oximetry 95 95 96 Oxygen Delivery Method Oxygen Flow Rate 09/29/23 15:00 Temperature Pulse Rate Respiratory Rate Blood Pressure Pulse Oximetry 97 Oxygen Delivery Method Oximask Oxygen Flow Rate 7 Fraction of Inspired Oxygen 35 Oxygen Delivery Method Oximask Oxygen Flow Rate 7 Narrative Exam Narrative: Generally the patient is an elderly male with labored respirations who responds to pain, he is very hard of hearing Extrem Other: Bilateral lower extremity edema, bilateral lower extremity venous ulcers that are weeping serous fluid, ulcers are larger and more numerous compared to previous clinic visit, new ulcer noted dorsum of right foot Objective Labs 09/29/23 04:12 09/29/23 04:12 Labs: Laboratory Results - last 24 hr 09/28/23 09/28/23 09/28/23 16:56 17:10 17:30 WBC 10.3 RBC 3.94 L Hgb 11.1 L Hct 34.0 L MCV 86.3 MCH 28.2 MCHC 32.7 RDW 19.9 H Plt Count 57 L Neut % (Auto) 80.9 H Lymph % (Auto) 12.0 L [place] % (Auto) 5.9 Eos % (Auto) 1.0 L Baso % (Auto) 0.2 Neut # (Auto) 8300 H Lymph # (Auto) 1200 [place] # (Auto) 600 Eos # (Auto) 100 Baso # (Auto) 0 RBC Morphology Polychromasia Anisocytosis Microcytosis Macrocytosis Tear Drop Cells Ovalocytes Acanthocytes (Spur) PT 58.6 H INR 5.0 H* APTT 59 H VBG pH VBG pCO2 VBG pO2 VBG HCO3 VBG Total CO2 VBG O2 Saturation VBG Base Excess FiO2 Sodium 137 Potassium 5.1 Chloride 96 L Carbon Dioxide 31 BUN 44 H Creatinine 1.76 H Estimated GFR 39 L BUN/Creatinine Ratio 25.0 H Glucose 105 Lactate 2.5 H Calcium 10.5 H Magnesium 2.4 H Total Bilirubin 1.3 AST 113 H ALT 45 Alkaline Phosphatase 106 Total Creatine Kinase 128 Troponin I 0.012 NT-Pro-B Natriuret Pep 2540 H Total Protein 7.9 Albumin 4.2 Globulin 3.7 Albumin/Globulin Ratio 1.1 Lipase 74 Procalcitonin 0.09 Urine Color Yellow Urine Appearance Clear Urine pH 7.0 Ur Specific [place] 1.010 Urine Protein Negative Urine Glucose (UA) Negative Urine Ketones Negative Urine Occult Blood Negative Urine Nitrate Negative Urine Bilirubin Negative Urine Urobilinogen 0.2 Ur Leukocyte Esterase Negative Urine RBC None seen Urine WBC 1-5/hpf Ur Squamous Epith Cells None seen Ur Renal Epithelial Cell 5-10/hpf H Urine Bacteria None seen Ur Culture Indicated? Cult not indicated Nasal Screen MRSA (PCR) Digoxin < 0.4 L Chlamy pneumoniae PCR Not detected Adenovirus (PCR) Not detected B.parapertussis DNA PCR Not detected Coronavirus OC43 (PCR) Not detected Coronavirus HKU1 (PCR) Not detected Coronavirus 229E (PCR) Not detected SARS-CoV-2 (PCR) Not detected Coronavirus NL63 (PCR) Not detected Human Metapneumovir PCR Not detected Influenza Type A (PCR) Not detected Influenza Type B (PCR) Not detected M. pneumoniae (PCR) Not detected Parainfluenza 1 (PCR) Not detected Parainfluenza 2 (PCR) Not detected Parainfluenza 3 (PCR) Not detected Parainfluenza 4 (PCR) Not detected RSV (PCR) Not detected Entero/Rhino (PCR) Not detected 09/28/23 09/28/23 09/28/23 18:34 19:00 20:32 WBC RBC Hgb Hct MCV MCH MCHC RDW Plt Count Neut % (Auto) Lymph % (Auto) [place] % (Auto) Eos % (Auto) Baso % (Auto) Neut # (Auto) Lymph # (Auto) [place] # (Auto) Eos # (Auto) Baso # (Auto) RBC Morphology Polychromasia Anisocytosis Microcytosis Macrocytosis Tear Drop Cells Ovalocytes Acanthocytes (Spur) PT INR APTT VBG pH 7.45 H VBG pCO2 50.3 H VBG pO2 57 H VBG HCO3 35 H VBG Total CO2 36 H VBG O2 Saturation 90 H VBG Base Excess 11.0 H FiO2 35 Sodium Potassium Chloride Carbon Dioxide BUN Creatinine Estimated GFR BUN/Creatinine Ratio Glucose Lactate 1.1 Calcium Magnesium Total Bilirubin AST ALT Alkaline Phosphatase Total Creatine Kinase Troponin I < 0.012 NT-Pro-B Natriuret Pep Total Protein Albumin Globulin Albumin/Globulin Ratio Lipase Procalcitonin Urine Color Urine Appearance Urine pH Ur Specific [place] Urine Protein Urine Glucose (UA) Urine Ketones Urine Occult Blood Urine Nitrate Urine Bilirubin Urine Urobilinogen Ur Leukocyte Esterase Urine RBC Urine WBC Ur Squamous Epith Cells Ur Renal Epithelial Cell Urine Bacteria Ur Culture Indicated? Nasal Screen MRSA (PCR) Digoxin Chlamy pneumoniae PCR Adenovirus (PCR) B.parapertussis DNA PCR Coronavirus OC43 (PCR) Coronavirus HKU1 (PCR) Coronavirus 229E (PCR) SARS-CoV-2 (PCR) Coronavirus NL63 (PCR) Human Metapneumovir PCR Influenza Type A (PCR) Influenza Type B (PCR) M. pneumoniae (PCR) Parainfluenza 1 (PCR) Parainfluenza 2 (PCR) Parainfluenza 3 (PCR) Parainfluenza 4 (PCR) RSV (PCR) Entero/Rhino (PCR) 09/28/23 09/29/23 09/29/23 22:20 04:12 13:16 WBC 10.6 RBC 3.90 L Hgb 10.9 L Hct 33.7 L MCV 86.5 MCH 28.0 MCHC 32.3 RDW 20.3 H Plt Count 61 L Neut % (Auto) 81.7 H Lymph % (Auto) 9.6 L [place] % (Auto) 7.1 Eos % (Auto) 0.9 L Baso % (Auto) 0.7 Neut # (Auto) 8600 H Lymph # (Auto) 1000 L [place] # (Auto) 800 Eos # (Auto) 100 Baso # (Auto) 100 RBC Morphology See below Polychromasia 1+ H Anisocytosis 3+ H Microcytosis 2+ H Macrocytosis 1+ H Tear Drop Cells 1+ H Ovalocytes 2+ H Acanthocytes (Spur) 1+ PT 76.1 H D INR 6.5 H* APTT VBG pH VBG pCO2 VBG pO2 VBG HCO3 VBG Total CO2 VBG O2 Saturation VBG Base Excess FiO2 Sodium 137 Potassium 4.8 Chloride 96 L Carbon Dioxide 36 H BUN 43 H Creatinine 2.28 H Estimated GFR 29 L BUN/Creatinine Ratio 18.9 Glucose 81 Lactate Calcium 10.3 H Magnesium Total Bilirubin 0.9 AST TNP ALT 37 Alkaline Phosphatase 110 Total Creatine Kinase Troponin I NT-Pro-B Natriuret Pep Total Protein 7.2 Albumin 3.8 Globulin 3.4 Albumin/Globulin Ratio 1.1 Lipase Procalcitonin Urine Color Urine Appearance Urine pH Ur Specific [place] Urine Protein Urine Glucose (UA) Urine Ketones Urine Occult Blood Urine Nitrate Urine Bilirubin Urine Urobilinogen Ur Leukocyte Esterase Urine RBC Urine WBC Ur Squamous Epith Cells Ur Renal Epithelial Cell Urine Bacteria Ur Culture Indicated? Nasal Screen MRSA (PCR) Not detected Digoxin Chlamy pneumoniae PCR Adenovirus (PCR) B.parapertussis DNA PCR Coronavirus OC43 (PCR) Coronavirus HKU1 (PCR) Coronavirus 229E (PCR) SARS-CoV-2 (PCR) Coronavirus NL63 (PCR) Human Metapneumovir PCR Influenza Type A (PCR) Influenza Type B (PCR) M. pneumoniae (PCR) Parainfluenza 1 (PCR) Parainfluenza 2 (PCR) Parainfluenza 3 (PCR) Parainfluenza 4 (PCR) RSV (PCR) Entero/Rhino (PCR) 09/29/23 14:40 WBC RBC Hgb Hct MCV MCH MCHC RDW Plt Count Neut % (Auto) Lymph % (Auto) [place] % (Auto) Eos % (Auto) Baso % (Auto) Neut # (Auto) Lymph # (Auto) [place] # (Auto) Eos # (Auto) Baso # (Auto) RBC Morphology Polychromasia Anisocytosis Microcytosis Macrocytosis Tear Drop Cells Ovalocytes Acanthocytes (Spur) PT INR APTT VBG pH VBG pCO2 VBG pO2 VBG HCO3 VBG Total CO2 VBG O2 Saturation VBG Base Excess FiO2 Sodium Potassium Chloride Carbon Dioxide BUN Creatinine Estimated GFR BUN/Creatinine Ratio Glucose Lactate Calcium Magnesium 2.1 Total Bilirubin AST ALT Alkaline Phosphatase Total Creatine Kinase Troponin I NT-Pro-B Natriuret Pep 3070 H Total Protein Albumin Globulin Albumin/Globulin Ratio Lipase Procalcitonin Urine Color Urine Appearance Urine pH Ur Specific [place] Urine Protein Urine Glucose (UA) Urine Ketones Urine Occult Blood Urine Nitrate Urine Bilirubin Urine Urobilinogen Ur Leukocyte Esterase Urine RBC Urine WBC Ur Squamous Epith Cells Ur Renal Epithelial Cell Urine Bacteria Ur Culture Indicated? Nasal Screen MRSA (PCR) Digoxin 1.2 D Chlamy pneumoniae PCR Adenovirus (PCR) B.parapertussis DNA PCR Coronavirus OC43 (PCR) Coronavirus HKU1 (PCR) Coronavirus 229E (PCR) SARS-CoV-2 (PCR) Coronavirus NL63 (PCR) Human Metapneumovir PCR Influenza Type A (PCR) Influenza Type B (PCR) M. pneumoniae (PCR) Parainfluenza 1 (PCR) Parainfluenza 2 (PCR) Parainfluenza 3 (PCR) Parainfluenza 4 (PCR) RSV (PCR) Entero/Rhino (PCR) [facility] Medical History Alcohol abuse GERD (gastroesophageal reflux disease) Mixed hyperlipidemia Essential hypertension Congestive heart failure Hypothyroidism Depression Venous stasis Esophageal ulceration Surgical History Status post appendectomy Family History Other Congestive heart failure Social History household members: spouse Tobacco & Substance Use Smoking Status: Never smoker alcohol intake: never Assessment & Plan Assessment and plan (1) Chronic cutaneous venous stasis ulcer: Status: Acute (2) Non-pressure chronic ulcer left lower leg, limited to breakdown skin: Status: Acute (3) Non-pressure ulcer of right lower extremity: Status: Acute (4) Non-pressure chronic ulcer of other part of left foot with unspecified severity: Status: Acute Plan Increased lower extremity edema has caused the ulcers to become larger and more numerous. Bedside mechanical debridement performed, surgical debridement not practical at this point because of elevated INR. Recommend elevation of both lower extremities, dressing changes with Adaptic and Hydrofera blue with Tubigrip for compression. Will need two-layer light compression prior to discharge. Follow up at wound center after discharge. Time Spent With Patient Time with patient: 30 to 49 minutes with 50% spent counseling/coordinating care
[2023-09-29 16:07] LABS: MRSA (Nasal) PCR Not Detected (Not Detect)
[2023-09-29] MEDS: FUROSEMIDE 40 MG/4 ML VIAL IV (18:43)
--- NOTE | 2023-09-29 18:56 | RT ---
Pt placed on BiPAP approx. 18:50 due to work of breathing and elevated RR. Pt appears comfortable and no respiratory distress noted.
[2023-09-29] MEDS: METOPROLOL ER 25 MG TABLET PO (21:25)
[2023-09-29 22:41] LABS: Prothrombin Time 78.9 SECONDS (9.4-12.5)
[2023-09-29 22:46] LABS: INR 6.7 (0.9-1.3)
[2023-09-29] MEDS: cefTRIAXone 2,000 MG in SODIUM CHLORIDE 0.9% 100 ML 200 MG IV (23:36)
[2023-09-30] VITALS (90 sets, daily range): BP systolic 106–162; BP diastolic 56–115; PULSE 71–215; RESP 10–50; TEMP 31–37.2; O2SAT 91–99
[2023-09-30] MEDS: HYDROMORPHONE 0.5 MG INJ IV ×2 (00:53→14:32)
[2023-09-30 04:51] LABS: Add Manual Diff / Slide Review NO; Basophils Absolute Auto 100 /uL (0-100); Basophils Percent Auto 0.6 % (0-2); Eosinophils Absolute Auto 100 /uL (0-450); Eosinophils Percent Auto 1.3 % (2-4); Hematocrit 29.9 % (41-53); Hemoglobin 9.9 g/dL (13.5-17.5); Lymphocytes Absolute Auto 1300 /uL (1100-4500); Lymphocytes Percent Auto 14.8 % (25-40); Mean Corpuscular Hemoglobin 28.4 PG (26-34); Mean Corpuscular Volume 86.1 fL (80-100); Monocytes Absolute Auto 800 /uL (0-900); Monocytes Percent Auto 8.3 % (3-14); Neutrophils Absolute Auto 6800 /uL (1500-7000); Platelet Count 71 X10^3/uL (150-400); Red Blood Cell Count 3.47 X10^6/uL (4.5-5.9); Red Cell Distribution Width 19.9 % (11.6-14.8); White Blood Cell Count 9.1 X10^3/uL (4.5-11.0)
[2023-09-30 04:53] LABS: Prothrombin Time 69.8 SECONDS (9.4-12.5)
[2023-09-30 05:31] LABS: Sodium 136 mmol/L (137-145)
[2023-09-30 05:32] LABS: Alanine Aminotransferase 34 IU/L (<50); Albumin 3.6 g/dL (3.5-5.0); Albumin Globulin Ratio 1.1 (1.0-2.8); Alkaline Phosphatase 102 U/L (38-126); BUN Creatinine Ratio 19.6 (6-22); Blood Urea Nitrogen 52 mg/dL (9-20); Calcium 9.8 mg/dL (8.4-10.2); Carbon Dioxide 32 mmol/L (22-32); Chloride 96 mmol/L (98-107); Estimated Glomerular Filt Rate 24 mL/min (>60); Globulin 3.2 g/dL (1.7-4.1); Glucose 85 mg/dL (80-110); Potassium 3.6 mmol/L (3.4-5.1); Total Protein 6.8 g/dL (6.3-8.2)
[2023-09-30 05:56] LABS: Thyroid Stimulating Hormone 3.89 uIU/mL (0.47-4.68)
[2023-09-30] MEDS: LEVOTHYROXINE 137 MCG TABLET PO (06:37)
--- NOTE | 2023-09-30 06:45 | PC.NURSE ---
Pt has remained on, and tolerated bipap well this shift; he was medicated once for pain
[2023-09-30 08:15] LABS: HEMOLYSIS < 15 (0-50)
[2023-09-30] MEDS: PANTOPRAZOLE DR 40 MG TABLET PO (08:35)
[2023-09-30] MEDS: TAMSULOSIN 0.4 MG CAPSULE 0.8 MG PO (08:35)
[2023-09-30] MEDS: METOPROLOL ER 25 MG TABLET PO ×2 (08:35→20:53)
[2023-09-30] MEDS: FUROSEMIDE 40 MG/4 ML VIAL IV (08:35)
--- NOTE | 2023-09-30 09:22 | DI.RAD.S_ITS ---
PROCEDURE: XR CHEST 1V INDICATIONS: sob TECHNIQUE: One view of the chest was acquired. COMPARISON: [facility], CR, XR CHEST 1V, 09/28/2023, 16:49. FINDINGS: Surgical changes and devices: None. Lungs and pleura: Large airspace opacities are noted in bilateral mid to lower lung bruno extending to bilateral hilar region. This is not significantly changed in size and appearance compared to previous studies. No pleural effusion or pneumothorax. Mediastinum: Aortic arch calcifications are seen. Heart size is enlarged Bones and chest wall: No suspicious bony lesions. Overlying soft tissues appear unremarkable. IMPRESSION: Persistent extensive bilateral pulmonary infiltrates. No significant pleural effusion. No pneumothorax. Dictated by: Jax Stanley M.D. on 09/30/2023 at 10:00 Approved by: Jax Stanley M.D. on 09/30/2023 at 10:09
--- NOTE | 2023-09-30 09:26 | PM.PN.1 ---
Subjective Subjective Date Patient Seen: 09/30/23 Time Patient Seen: 09:26 Interval history: Patient had unremarkable night last night. He slept with BiPAP. BiPAP is decreasing his work of breathing. Patient is still clinically sounds like he has fluid overload. Chest x-ray is done and viewed by myself and shows evidence of pulmonary edema, radiology read is pending. Patient does complain of low back pain Otherwise 12 point review of systems is negative Exam Vital Signs (past 8 hours): - 09/30/23 01:30 09/30/23 02:00 09/30/23 02:01 Temperature 98.8 F 98.6 F Pulse Rate 79 81 Respiratory Rate 19 20 Blood Pressure 134/61 Pulse Oximetry 97 95 Oxygen Delivery Method Fraction of Inspired Oxygen 09/30/23 02:01 09/30/23 02:05 09/30/23 03:00 Temperature 98.6 F 98.6 F 98.6 F Pulse Rate 81 84 90 Respiratory Rate 22 17 20 Blood Pressure Pulse Oximetry 94 94 93 Oxygen Delivery Method Fraction of Inspired Oxygen 09/30/23 03:00 09/30/23 03:01 09/30/23 03:01 Temperature 98.6 F Pulse Rate 118 H Respiratory Rate 25 H Blood Pressure 115/59 L Pulse Oximetry 93 Oxygen Delivery Method Fraction of Inspired Oxygen 09/30/23 03:05 09/30/23 04:00 09/30/23 04:01 Temperature 98.6 F 98.4 F Pulse Rate 90 85 Respiratory Rate 29 H 29 H Blood Pressure 148/70 H Pulse Oximetry 94 Oxygen Delivery Method Fraction of Inspired Oxygen 09/30/23 04:01 09/30/23 04:05 09/30/23 04:10 Temperature 98.4 F 98.4 F 98.4 F Pulse Rate 87 98 H 87 Respiratory Rate 34 H 35 H 35 H Blood Pressure Pulse Oximetry Oxygen Delivery Method Fraction of Inspired Oxygen 09/30/23 04:15 09/30/23 04:20 09/30/23 04:25 Temperature 98.4 F 98.2 F 98.2 F Pulse Rate 77 91 H 86 Respiratory Rate 21 26 H 22 Blood Pressure Pulse Oximetry 95 96 Oxygen Delivery Method Fraction of Inspired Oxygen 09/30/23 04:30 09/30/23 05:00 09/30/23 05:00 Temperature 98.2 F 98.2 F Pulse Rate 84 87 Respiratory Rate 18 28 H Blood Pressure 154/74 H Pulse Oximetry 96 95 Oxygen Delivery Method Fraction of Inspired Oxygen 09/30/23 05:05 09/30/23 05:10 09/30/23 05:15 Temperature 98.2 F 98.1 F 98.1 F Pulse Rate 86 78 86 Respiratory Rate 34 H 32 H 23 Blood Pressure Pulse Oximetry 96 96 96 Oxygen Delivery Method Fraction of Inspired Oxygen 09/30/23 05:20 09/30/23 05:25 09/30/23 05:30 Temperature 98.1 F 98.1 F 98.1 F Pulse Rate 78 80 80 Respiratory Rate 24 26 H 22 Blood Pressure Pulse Oximetry 96 96 95 Oxygen Delivery Method Fraction of Inspired Oxygen 09/30/23 05:35 09/30/23 05:40 09/30/23 05:45 Temperature 98.1 F 98.1 F 98.1 F Pulse Rate 78 93 H 80 Respiratory Rate 25 H 25 H 24 Blood Pressure Pulse Oximetry 94 95 96 Oxygen Delivery Method Fraction of Inspired Oxygen 09/30/23 05:50 09/30/23 05:55 09/30/23 06:00 Temperature 98.1 F 98.1 F 98.1 F Pulse Rate 79 92 H 85 Respiratory Rate 22 33 H 46 H Blood Pressure Pulse Oximetry 94 97 95 Oxygen Delivery Method Fraction of Inspired Oxygen 09/30/23 06:00 09/30/23 06:05 09/30/23 06:10 Temperature 98.1 F 98.1 F Pulse Rate 85 78 Respiratory Rate 23 20 Blood Pressure 162/76 H Pulse Oximetry 95 96 Oxygen Delivery Method Fraction of Inspired Oxygen 09/30/23 06:15 09/30/23 06:20 09/30/23 06:25 Temperature 98.1 F 98.1 F 97.9 F Pulse Rate 85 85 82 Respiratory Rate 23 35 H 24 Blood Pressure Pulse Oximetry 98 98 94 Oxygen Delivery Method Fraction of Inspired Oxygen 09/30/23 06:30 09/30/23 06:35 09/30/23 06:40 Temperature 97.9 F 97.9 F 97.9 F Pulse Rate 79 94 H 97 H Respiratory Rate 32 H 44 H 42 H Blood Pressure Pulse Oximetry 96 95 92 Oxygen Delivery Method Fraction of Inspired Oxygen 09/30/23 06:45 09/30/23 06:50 09/30/23 06:55 Temperature 97.9 F 97.9 F 97.7 F Pulse Rate 83 81 78 Respiratory Rate 41 H 39 H 30 H Blood Pressure Pulse Oximetry 97 98 96 Oxygen Delivery Method Fraction of Inspired Oxygen 09/30/23 07:00 09/30/23 07:00 09/30/23 07:05 Temperature 97.7 F 97.7 F Pulse Rate 83 82 Respiratory Rate 33 H 38 H Blood Pressure 153/70 H Pulse Oximetry 95 96 Oxygen Delivery Method Fraction of Inspired Oxygen 09/30/23 07:10 09/30/23 07:15 09/30/23 07:20 Temperature 97.7 F 97.7 F 97.7 F Pulse Rate 77 72 79 Respiratory Rate 32 H 32 H 31 H Blood Pressure Pulse Oximetry 95 95 95 Oxygen Delivery Method Fraction of Inspired Oxygen 09/30/23 07:24 09/30/23 07:25 09/30/23 07:30 Temperature 97.7 F 97.7 F Pulse Rate 76 85 Respiratory Rate 23 25 H Blood Pressure 153/70 H Pulse Oximetry 92 95 Oxygen Delivery Method Fraction of Inspired Oxygen 25 09/30/23 07:35 09/30/23 07:40 09/30/23 07:45 Temperature 97.7 F 97.7 F 97.7 F Pulse Rate 83 77 71 Respiratory Rate 34 H 35 H 22 Blood Pressure Pulse Oximetry 96 96 94 Oxygen Delivery Method Fraction of Inspired Oxygen 09/30/23 07:50 09/30/23 08:00 09/30/23 08:01 Temperature 97.7 F 97.7 F Pulse Rate 77 89 Respiratory Rate 29 H 25 H Blood Pressure 108/65 Pulse Oximetry 95 95 95 Oxygen Delivery Method BiPAP Fraction of Inspired Oxygen 09/30/23 09:01 Temperature 97.5 F L Pulse Rate 96 H Respiratory Rate 30 H Blood Pressure 160/78 H Pulse Oximetry 98 Oxygen Delivery Method Fraction of Inspired Oxygen Fraction of Inspired Oxygen 25 Oxygen Delivery Method BiPAP Oxygen Flow Rate 7 Narrative Exam Narrative: Patient is afebrile vital signs are stable. Heart rate is in the 90s and blood pressure improved. Patient is on BiPAP 30% FiO2 or 3-4 L of nasal cannula while eating. Decrease work of breathing with BiPAP in place HEENT: Unremarkable Neck: Supple Chest: Diffuse expiratory wheezes with bilateral crackles Cor: Irregularly irregular rhythm with a well-controlled rate Abdomen: Positive bowel sounds, soft, nontender, nondistended Extremities: Wrapped in dressing with decreased swelling. Dressings were not removed Neurologic exam nonfocal Objective Labs 09/30/23 04:19 09/30/23 04:19 Labs: Laboratory Results - last 24 hr 09/29/23 09/29/23 09/29/23 04:12 13:16 14:40 WBC RBC Hgb Hct MCV MCH MCHC RDW Plt Count Neut % (Auto) Lymph % (Auto) [place] % (Auto) Eos % (Auto) Baso % (Auto) Neut # (Auto) Lymph # (Auto) [place] # (Auto) Eos # (Auto) Baso # (Auto) PT 76.1 H D INR 6.5 H* Sodium Potassium Chloride Carbon Dioxide BUN Creatinine Estimated GFR BUN/Creatinine Ratio Glucose Calcium Magnesium 2.1 Total Bilirubin AST TNP ALT Alkaline Phosphatase NT-Pro-B Natriuret Pep 3070 H Total Protein Albumin Globulin Albumin/Globulin Ratio TSH Nasal Screen MRSA (PCR) Digoxin 1.2 D 09/29/23 09/29/23 09/30/23 14:45 22:26 04:19 WBC 9.1 RBC 3.47 L Hgb 9.9 L Hct 29.9 L MCV 86.1 MCH 28.4 MCHC 33.0 RDW 19.9 H Plt Count 71 L Neut % (Auto) 75.0 Lymph % (Auto) 14.8 L [place] % (Auto) 8.3 Eos % (Auto) 1.3 L Baso % (Auto) 0.6 Neut # (Auto) 6800 Lymph # (Auto) 1300 [place] # (Auto) 800 Eos # (Auto) 100 Baso # (Auto) 100 PT 78.9 H 69.8 H D INR 6.7 H* 6.0 H* Sodium 136 L Potassium 3.6 D Chloride 96 L Carbon Dioxide 32 BUN 52 H Creatinine 2.65 H Estimated GFR 24 L BUN/Creatinine Ratio 19.6 Glucose 85 Calcium 9.8 Magnesium Total Bilirubin 1.0 AST TNP ALT 34 Alkaline Phosphatase 102 NT-Pro-B Natriuret Pep Total Protein 6.8 Albumin 3.6 Globulin 3.2 Albumin/Globulin Ratio 1.1 TSH 3.89 Nasal Screen MRSA (PCR) Not detected Digoxin [facility] Medical History Alcohol abuse GERD (gastroesophageal reflux disease) Mixed hyperlipidemia Essential hypertension Congestive heart failure Hypothyroidism Depression Venous stasis Esophageal ulceration Surgical History Status post appendectomy Family History Other Congestive heart failure Social History household members: spouse Smoking Status: Never smoker alcohol intake: never Assessment & Plan Assessment & Plan narrative: Assessment & Plan narrative: 78-year-old male admitted to the hospital with severe sepsis syndrome of suspected etiology from lower extremity cellulitis. This is hospital day 2 78-year-old gentleman 1. Symptomatic bradycardia thought to contribute to worsening CHF. Patient received Digibind in the ER and then yesterday had AFib with RVR and now rate is well-controlled with diuresis and metoprolol, his outpatient regimen. Will continue to monitor. 2. CHF, high-frequency preserved ejection fraction acute on chronic. Patient is still appearing clinically to be fluid overloaded. BNP I do not think is helpful due to acute renal failure. Due to worsening renal function I think we need to hold Lasix. Unfortunately he did get his dose this morning but we will not give him further diuretic unless respiratory condition worsens. Will reassess labs in morning. Reviewed echo which showed normal ejection fraction and it shows improvement from his previous echo in June of 2022 quite significantly. Reviewed troponins in ER and these were negative. Patient on low-dose spironolactone as outpatient. Will likely restart tomorrow. Will continue metoprolol. Will discuss with Cardiology. 3. Respiratory failure secondary to congestive heart failure. Has responded initially to BiPAP. Patient tolerated BiPAP overnight. Overall his oxygen requirements are decreased. Suspect respiratory failure is multifactorial. We need to hold his Lasix now due to worsening renal function. Will continue to monitor. Will continue ceftriaxone. Will repeat chest x-ray today. Continue with RT. Heart rate is better controlled. No significant history of COPD or tobacco abuse. 4. 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 Recently E coli and methicillin-sensitive Staph were appreciated. He currently is on ceftriaxone. He initially received azithromycin and we will discontinue this. He also received a dose of vancomycin. At this point we will hold on this. MRSA swab was negative. Will continue off the vancomycin and continue with the ceftriaxone. Appreciate wound care consult which was reviewed by me. Unfortunately wound care is unable to continue to see him inpatient and nursing will do dressing changes. 5. Question of pneumonia. [place] to be less likely at this time. Viral panel is unremarkable. Was initially started on ceftriaxone and azithromycin. Will continue on ceftriaxone alone. Patient is afebrile now. Oxygen requirements have decreased. Will repeat chest x-ray. 6. Type 2 diabetes, diet controlled. Blood sugars have been excellent. Will continue to monitor. 7. Elevated INR at 6.7 last night. This was the high. Now down to 6.0. Will continue to hold Coumadin. No evidence of bleeding. Will recheck in a.m.. 8. Currently meeting criteria for severe sepsis without septic shock. Symptoms improve. We will continue with ceftriaxone 9. AFib with chronic anticoagulation. Was bradycardic when he presented now with some tachycardia. Heart rate is well-controlled now that he is back on his outpatient metoprolol. Will continue this. 10. GI prophylaxis Plan: Continue oral pantoprazole 11. DVT prophylaxis. Currently supratherapeutic on INR. Continue holding Coumadin and doing daily INRs 12. Hypothyroidism. TSH normal. Will follow 13. Hypokalemia. Potassium decreased. Patient received significant amount of furosemide. Will go ahead and give 20 mEq today. Will recheck tomorrow. 14. BPH. Plan continue Flomax 15. Cellulitis. Suspect this was the etiology of his fever. Patient is improving. He is afebrile. He never had leukocytosis. Will continue with IV ceftriaxone. 60 minutes was spent with patient in reviewing his chart and discussing with nursing a meeting with patient and formulating a plan and documentation. Code status is DNR. Quality VTE Deep Vein Thrombosis/Pulmonary Embolism Present on Admission: No
[2023-09-30 12:02] LABS: Magnesium 2.2 mg/dL (1.6-2.3)
[2023-09-30] MEDS: POTASSIUM CHLORIDE 20 MEQ TAB PO (12:09)
--- NOTE | 2023-09-30 12:37 | CM.DPC ---
DCP Cont. Reviewed EMR and team rounds for updates. Pt presents as sleeping, appearing comfortable, not on O2 this afternoon. Due to the probability that he will need SNF rehab, this COMPENSATION ADVISOR was given permission from Dr. [place] to add PT/OT therapies to pt's care plan. Will continue to monitor and assist with SNF preference after speaking with family again tomorrow.
--- NOTE | 2023-09-30 13:06 | OT.IPNOTE ---
Checked with nursing regarding pt's status as OT camille received today. Pt still has high INR reading and on BiPaP intermittently. Per nursing best to hold at this time. In addition pt still has bedrest orders in the chart.
--- NOTE | 2023-09-30 15:20 | PT-IP ANOTE ---
PT eval received and EMR reviewed. Pt with INR of 6. will hold PT at this time. talked to nurse and informed regarding PT eval hold at this time and nurse agreed. nurse also stated that pt is also relying alot on his bipap and is not appropriate for PT at this time. informed case fitter regarding PT hold.
[2023-09-30] MEDS: BUMETANIDE 1 MG/4 ML VIAL 2 MG IV (15:56)
--- NOTE | 2023-09-30 16:15 | DIET.CONS ---
Dietary Consultation Note Admission Date: 09/28/2023 21:02 Assessment: 78M admitted with severe sepsis syndrome. RD consulted for chronic leg wounds. Pt treated for fluid overload with CHF. PMH of T2DM and CKD3. Labs indicate worsening kidney function. Blood sugars are remarkably well managed with no DM med intervention. CCD of 30g carbs per meal. Recent GFR 24 L, Cr 2.65 H with K+ WNL of 3.6. No recent phos. RD would like to send Trey to help with leg wounds, however concerns for kidney insufficiencies. at bedside for assessment, which was helpful since pt is very [place]. Pt likes to take a digestive supplement with meat intake due to excessive gas/bloating. Does not want to eat meat without digestive. Asking for protein shakes instead. Current intake of protein likely inadequate for wound healing. Additionally, likely could increase carbs to 45g per meal given BG and REE. Ht: 177.8 cm Wt: 120.1 kg BMI: 37.5 Last BM: 09/28/23 (09/28/23 21:05) MNA: 10 Ej Score: 16 Diet: 09/29/23 Lunch Carbohydrate Consistent Diet Diet Modifications: Carbohydrate level: Small (2 CHO) Reflex DM orders: No Food Texture: Level 7 - Regular Liquid Consistency: Level 0 - Thin Nutrition Percent Meal Consumed 75% 09/30/23 12:17 Percent Meal Consumed 25% 09/30/23 09:09 Percent Meal Consumed 50% 09/29/23 18:09 Percent Meal Consumed 25% 09/29/23 12:53 Labs: RBC 3.47 X10^6/uL (4.5-5.9) L 09/30/23 04:19 Hgb 9.9 g/dL (13.5-17.5) L 09/30/23 04:19 Hct 29.9 % (41-53) L 09/30/23 04:19 Creatinine 2.65 mg/dL (0.66-1.25) H 09/30/23 04:19 Lactate 1.1 mmol/L (0.7-2.1) 09/28/23 20:32 NT-Pro-B Natriuret Pep 3070 pg/mL (<450) H 09/29/23 14:40 Nutrition Diagnosis: Predicted inadequate protein intake r/t self limiting meat intake without digestive supplement aeb pt report ; Increased nutrient needs r/t wound healing aeb chronic leg wounds Interventions: 1. Discussed wound healing nutrients needed, including protein and vitamin c 2. Reviewed protein options he is willing to eat while admitted 3. Rd will change CCD to 45g/meal 4. RD will coordinate with kitchen about more meatless protein options Monitoring/Evaluations: f/u tomorrow for lab review and diet changes Electronically Signed by: Татьяна Brown 09/30/23 16:15 Clinical Dietitian [address] [address]
--- NOTE | 2023-09-30 16:53 | PC.NURSE ---
Day Shift Pt off bipap briefly for breakfast and then off again at 1155 for lunch. Bipap remained off after lunch per pt request, on 2L NC with SpO2 upper 90s, breathing appears labored but with less wheezing, pt reports breathing overall improved. Lung sounds remain coarse, intermittent moist cough. Dressings to BLEs changed this afternoon, premedicated with Dilaudid. Dressings saturated and wounds weepy with sanguinous/serosanguious fluid. Cleansed with NS, gently dried with gauze. No hydrofera blue foam available at time of dressing change but adaptic placed to wounds and ABD pads placed over that and wrapped in kerlex per previous dressing (that was placed by tie inspector). Tubigrip compression placed to BLEs. Pt tolerated well, BLEs elevated. Turned to right side, explained importance of offloading pressure and pt initially declined but then did allow turn. Call light within reach, using appropriately to make needs known. Bed alarm. Wound care center called for dressing change supplies and received at this time and placed in room.
[2023-09-30] MEDS: REFRESH LIQUIGEL 1 EACH EYE-BOTH (17:52)
--- NOTE | 2023-09-30 21:35 | RT ---
Spoke to pt regarding BiPAP use, he is currently refusing BiPAP. RN aware.
[2023-09-30] MEDS: cefTRIAXone 2,000 MG in SODIUM CHLORIDE 0.9% 100 ML 200 MG IV (22:29)
[2023-10-01] VITALS (34 sets, daily range): BP systolic 114–169; BP diastolic 59–90; PULSE 72–126; RESP 10–44; TEMP 30.8–37.3; O2SAT 82–99
[2023-10-01 04:56] LABS: Add Manual Diff / Slide Review NO; Basophils Absolute Auto 0 /uL (0-100); Basophils Percent Auto 0.4 % (0-2); Eosinophils Absolute Auto 200 /uL (0-450); Eosinophils Percent Auto 2.6 % (2-4); Hematocrit 30.1 % (41-53); Lymphocytes Absolute Auto 1100 /uL (1100-4500); Lymphocytes Percent Auto 11.5 % (25-40); Mean Corpuscular HGB Conc 33.1 % (30-36); Mean Corpuscular Hemoglobin 28.6 PG (26-34); Mean Corpuscular Volume 86.3 fL (80-100); Monocytes Absolute Auto 900 /uL (0-900); Monocytes Percent Auto 9.8 % (3-14); Neutrophils Absolute Auto 7000 /uL (1500-7000); Neutrophils Percent Auto 75.7 % (50-75); Platelet Count 77 X10^3/uL (150-400); Red Blood Cell Count 3.49 X10^6/uL (4.5-5.9); Red Cell Distribution Width 19.6 % (11.6-14.8); White Blood Cell Count 9.2 X10^3/uL (4.5-11.0)
[2023-10-01 04:58] LABS: INR 4.4 (0.9-1.3)
[2023-10-01 05:02] LABS: Alanine Aminotransferase 30 IU/L (<50); Albumin 3.5 g/dL (3.5-5.0); Albumin Globulin Ratio 1.1 (1.0-2.8); Alkaline Phosphatase 94 U/L (38-126); BUN Creatinine Ratio 24.2 (6-22); Blood Urea Nitrogen 46 mg/dL (9-20); Calcium 9.7 mg/dL (8.4-10.2); Carbon Dioxide 33 mmol/L (22-32); Chloride 96 mmol/L (98-107); Estimated Glomerular Filt Rate 36 mL/min (>60); Globulin 3.1 g/dL (1.7-4.1); Glucose 99 mg/dL (80-110); HEMOLYSIS < 15 (0-50); Potassium 3.4 mmol/L (3.4-5.1); Sodium 136 mmol/L (137-145); Total Protein 6.6 g/dL (6.3-8.2)
[2023-10-01 05:12] LABS: Digoxin 0.7 ng/mL (0.8-2.0)
--- NOTE | 2023-10-01 05:29 | RT ---
Pt noted with increased WOB. He agreed to go back on BiPAP at this time. Pt is tolerating well.
[2023-10-01] MEDS: LEVOTHYROXINE 137 MCG TABLET PO (06:19)
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
[2023-10-01] MEDS: BUMETANIDE 1 MG/4 ML VIAL 2 MG IV ×2 (08:18→18:00)
[2023-10-01] MEDS: PANTOPRAZOLE DR 40 MG TABLET PO (08:19)
[2023-10-01] MEDS: POTASSIUM CHLORIDE 20 MEQ TAB 40 MEQ PO (08:19)
[2023-10-01] MEDS: METOPROLOL ER 25 MG TABLET PO ×2 (08:19→21:06)
[2023-10-01] MEDS: TAMSULOSIN 0.4 MG CAPSULE 0.8 MG PO (08:37)
--- NOTE | 2023-10-01 08:57 | OT.IPNOTE ---
Spoke to nursing regarding therapy evals. Pt's nurse states best to hold for now until able to talk to the doctor. Pt's INR still high and continues to have bedrest orders in place.
--- NOTE | 2023-10-01 09:01 | PT-IP ANOTE ---
Nsg requests that therapy hold. His INR is high and he is on bed rest as well.
[2023-10-01] MEDS: LIDOCAINE 2% (GLYDO) 6 ML GEL TOP (11:12)
--- NOTE | 2023-10-01 12:12 | RT ---
PT IS OFF BIPAP AND USING 2 LPM N/C, EATING LUNCH.
[2023-10-01] MEDS: polyethylene glycoL 3350 17 GM POWD.PACK PO (14:59)
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
[2023-10-01] MEDS: HYDROMORPHONE 0.5 MG INJ IV (17:49)
--- NOTE | 2023-10-01 18:31 | PC.NURSE ---
bilateral leg dressing change done; pt pre-medicated w/ Dilaudid iv; tolerated well; pt has been on nasal cannula since breakfast; his breathing is improved, as is his color; his brought his home walker this evening and he will start PT/OT in the morning; Dr Montana came by this evening and spoke w/ pt and ; additional dose bumex given this evening
[2023-10-01] MEDS: cefTRIAXone 2,000 MG in SODIUM CHLORIDE 0.9% 100 ML 200 MG IV (22:42)
[2023-10-02] VITALS (35 sets, daily range): BP systolic 114–188; BP diastolic 60–96; PULSE 73–159; RESP 10–47; TEMP 31–37.3; O2SAT 92–99
--- NOTE | 2023-10-02 01:30 | RT ---
At 0130, pt removed the BiPAP mask. He was placed on 2L nasal cannula. RT discussed the importance of BiPAP therapy with the pt. Currently, he is refusing the wear the mask.
[2023-10-02 05:16] LABS: INR 2.5 (0.9-1.3); Prothrombin Time 28.9 SECONDS (9.4-12.5)
[2023-10-02 05:22] LABS: Add Manual Diff / Slide Review NO; Basophils Absolute Auto 0 /uL (0-100); Basophils Percent Auto 0.4 % (0-2); Eosinophils Absolute Auto 200 /uL (0-450); Eosinophils Percent Auto 2.6 % (2-4); Hematocrit 30.8 % (41-53); Hemoglobin 10.5 g/dL (13.5-17.5); Lymphocytes Absolute Auto 1100 /uL (1100-4500); Lymphocytes Percent Auto 13.5 % (25-40); Mean Corpuscular HGB Conc 34.1 % (30-36); Mean Corpuscular Hemoglobin 28.8 PG (26-34); Mean Corpuscular Volume 84.6 fL (80-100); Monocytes Absolute Auto 800 /uL (0-900); Monocytes Percent Auto 9.6 % (3-14); Neutrophils Absolute Auto 5900 /uL (1500-7000); Neutrophils Percent Auto 73.9 % (50-75); Platelet Count 89 X10^3/uL (150-400); Red Blood Cell Count 3.64 X10^6/uL (4.5-5.9); Red Cell Distribution Width 19.1 % (11.6-14.8)
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
[2023-10-02 05:31] LABS: Alanine Aminotransferase 31 IU/L (<50); Albumin 3.5 g/dL (3.5-5.0); Albumin Globulin Ratio 1.1 (1.0-2.8); Alkaline Phosphatase 93 U/L (38-126); BUN Creatinine Ratio 22.8 (6-22); Bilirubin Total 1.1 mg/dL (0.2-1.3); Blood Urea Nitrogen 38 mg/dL (9-20); Calcium 10.1 mg/dL (8.4-10.2); Carbon Dioxide 35 mmol/L (22-32); Chloride 95 mmol/L (98-107); Estimated Glomerular Filt Rate 42 mL/min (>60); Globulin 3.2 g/dL (1.7-4.1); Glucose 112 mg/dL (80-110); HEMOLYSIS < 15 (0-50); Potassium 3.5 mmol/L (3.4-5.1); Sodium 136 mmol/L (137-145); Total Protein 6.7 g/dL (6.3-8.2)
--- NOTE | 2023-10-02 05:48 | RT ---
At time of 422, discussed with the pt about the importance of BiPAP and encouraged pt to use device. He refused. Currently he remains supported on 2L NC. RN aware.
[2023-10-02] MEDS: LEVOTHYROXINE 137 MCG TABLET PO (06:00)
--- NOTE | 2023-10-02 08:26 | PM.PN.1 ---
Subjective Subjective Date Patient Seen: 10/02/23 Time Patient Seen: 08:26 Interval history: Patient seen in follow-up of multiple issues. Congestive heart failure, leg ulcers atrial fibrillation. Patient is somewhat confused this morning. Apparently had. Yesterday of having some issues. After given Dilaudid. No other changes. Patient otherwise is interactive and requesting Page be removed. Very irritated. No other changes. Exam Vital Signs (past 8 hours): - 10/02/23 01:00 10/02/23 01:00 10/02/23 01:00 Temperature 99.1 F Pulse Rate 85 Respiratory Rate 21 Blood Pressure 125/81 Pulse Oximetry 95 Oxygen Delivery Method Nasal Cannula BiPAP Oxygen Flow Rate Fraction of Inspired Oxygen 10/02/23 01:23 10/02/23 02:00 10/02/23 02:00 Temperature 99.0 F Pulse Rate 86 Respiratory Rate 23 Blood Pressure 130/74 Pulse Oximetry 96 Oxygen Delivery Method Oxygen Flow Rate Fraction of Inspired Oxygen 25 10/02/23 03:00 10/02/23 03:00 10/02/23 04:00 Temperature 98.8 F Pulse Rate 83 Respiratory Rate 22 Blood Pressure 125/70 145/67 H Pulse Oximetry 98 Oxygen Delivery Method Oxygen Flow Rate 2 Fraction of Inspired Oxygen 10/02/23 04:00 10/02/23 04:00 10/02/23 05:00 Temperature 98.8 F Pulse Rate 81 Respiratory Rate 24 Blood Pressure 133/71 Pulse Oximetry 96 Oxygen Delivery Method Nasal Cannula BiPAP Oxygen Flow Rate 2 Fraction of Inspired Oxygen 10/02/23 05:00 10/02/23 06:00 10/02/23 06:00 Temperature 98.6 F 98.6 F Pulse Rate 79 77 Respiratory Rate 21 23 Blood Pressure 123/71 Pulse Oximetry 97 97 Oxygen Delivery Method Oxygen Flow Rate 2 2 Fraction of Inspired Oxygen 10/02/23 07:00 10/02/23 07:00 Temperature 98.6 F Pulse Rate 79 Respiratory Rate 26 H Blood Pressure 128/68 Pulse Oximetry 99 Oxygen Delivery Method Oxygen Flow Rate Fraction of Inspired Oxygen Fraction of Inspired Oxygen 25 SaO2/FiO2 Ratio 342 Oxygen Delivery Method Nasal Cannula,BiPAP Oxygen Flow Rate 2 Narrative Exam Narrative: Alert confused appearing male in no acute distress Lungs with basilar crackles heart irregular rate and rhythm. Abdomen is soft positive bowel sounds extremities with significant decrease in edema from my previous exam and wrapped. Neurologic exam he is confused but moving all extremities. Does respond to conversation Objective Labs 10/02/23 03:55 10/02/23 03:55 Labs: Laboratory Results - last 24 hr 10/02/23 03:55 WBC 8.0 RBC 3.64 L Hgb 10.5 L Hct 30.8 L MCV 84.6 MCH 28.8 MCHC 34.1 RDW 19.1 H Plt Count 89 L Neut % (Auto) 73.9 Lymph % (Auto) 13.5 L [place] % (Auto) 9.6 Eos % (Auto) 2.6 Baso % (Auto) 0.4 Neut # (Auto) 5900 Lymph # (Auto) 1100 [place] # (Auto) 800 Eos # (Auto) 200 Baso # (Auto) 0 PT 28.9 H D INR 2.5 H Sodium 136 L Potassium 3.5 Chloride 95 L Carbon Dioxide 35 H BUN 38 H Creatinine 1.67 H Estimated GFR 42 L BUN/Creatinine Ratio 22.8 H Glucose 112 H Calcium 10.1 Total Bilirubin 1.1 AST TNP ALT 31 Alkaline Phosphatase 93 Total Protein 6.7 Albumin 3.5 Globulin 3.2 Albumin/Globulin Ratio 1.1 [facility] Medical History Alcohol abuse GERD (gastroesophageal reflux disease) Mixed hyperlipidemia Essential hypertension Congestive heart failure Hypothyroidism Depression Venous stasis Esophageal ulceration Surgical History Status post appendectomy Family History Other Congestive heart failure Social History household members: spouse Smoking Status: Never smoker alcohol intake: never Assessment & Plan Assessment & Plan narrative: Congestive heart failure. Preserved ejection fraction acute on chronic. I am going to add some Lasix today is kidneys look better. Will be harder to follow output but very irritated with catheter. Will see how that goes and follow from there. Otherwise no change. Will follow closely. Respiratory failure thought to be secondary to congestive heart failure. Patient has had intermittent BiPAP. Seems to help. Mostly when his atrial fibrillation is out of control probably multifactorial. He does have diffuse infiltrates in his lungs and I am going to discuss with Radiology about that. There is otherwise no changes. Going to add Lasix today and see how things go. Re-evaluate after that. Atrial fibrillation. Patient is still with intermittent increase in rate. He is back on his digoxin. Will increase his metoprolol. Blood pressure hopefully will tolerate. Re-evaluate after that. Probably a significant part of his issue with congestive heart failure. Will see how he responds. Delirium. Somewhat new. Patient has decreased vision decreased hearing and is in the hospital. Certainly could be a part of this. Do not think he had a stroke will need to be watching closely if he has any changes will need CT scan. Otherwise will discontinue Dilaudid and see how he does. Question of pneumonia. I am going to discuss with radiologist and see how that goes. On ceftriaxone without other changes. Type 2 diabetes controlled Elevated INR. Improved today. Will start Coumadin back. Low dose and re-evaluate. Severe sepsis. Improved. Will continue with ceftriaxone. GI prophylaxis continue pantoprazole. DVT prophylaxis on Coumadin. Hypothyroidism. We will follow. Hypokalemia. Check BNP tomorrow. BPH. Continue Flomax. Cellulitis. Suspect was cause of his infection. On ceftriaxone. Anemia. Chronic disease Disposition. I do not see this patient going home. I suspect he will need placement. We are not close to having that happened and was suspect it will be decided in 3-4 days. Patient is sick and potentially this could be terminal will have to see how things go. May need to consider hospice if things do not turn around. Will continue to follow. 1 hour spent with patient reviewing charts nursing orders dictation Quality VTE Deep Vein Thrombosis/Pulmonary Embolism Present on Admission: No
[2023-10-02] MEDS: PANTOPRAZOLE DR 40 MG TABLET PO (08:27)
[2023-10-02] MEDS: POTASSIUM CHLORIDE 20 MEQ TAB 40 MEQ PO (08:27)
[2023-10-02] MEDS: TAMSULOSIN 0.4 MG CAPSULE 0.8 MG PO (08:27)
[2023-10-02] MEDS: METOPROLOL ER 25 MG TABLET 37.5 MG PO ×2 (08:28→21:03)
[2023-10-02] MEDS: LORazepam 0.5 MG/0.25 ML SYRINGE IV ×2 (10:08→15:59)
[2023-10-02] MEDS: REFRESH LIQUIGEL 1 EACH EYE-BOTH (10:10)
--- NOTE | 2023-10-02 10:27 | PC.NURSE ---
Addendum entered by Mely Ta R.N. 10/02/23 19:13: warfarin ordered but held due to agitation; pt sleeping after Valium IV given Addendum entered by Mely Ta R.N. 10/02/23 17:24: increased confusion and agitation. Ativan 0.5mg IV given. Bladder scan 376ml. Dr. Hoover notified and orders to replace ro, ABG and UA. ro placed. VBG drawn. B/L hands mits placed due to pt pulling at newly placed ro. Dr. Hoover at bedside speaking with pt's and pt assessment. Dr. Hoover assessed tongue, no 'blue' spotting noted on tongue. Addendum entered by Mely Ta R.N. 10/02/23 13:43: Seraquil PO given when taoist members visiting. Within an hour, pt calm and stated, I'm sorry for how I acted earlier. I was lost. Pt appropriate and talkative. Continues to hallucinates, seeing bats on the ceiling. Original Note: pt slowly increase agitation this morning. continues to hallucinate and confusion. Requesting ro to be taken out. pt attempting to sit up and get OOB, attempting to hit staff. Dr. Hoover notified and Ativan 0.5 mg IV ordered. Pt calmed a bit but continues to pull of Pulse ox and cardiac leads. Staff sitting with pt. Ro dc'd this morning.
[2023-10-02] MEDS: QUETIAPINE 25 MG TABLET PO (11:31)
--- NOTE | 2023-10-02 11:31 | OT.IPNOTE ---
Pt not medically appropriate at this time and therefore discharge OT eval orders. Nursing and case management aware.
[2023-10-02] MEDS: ACETAMINOPHEN 325 MG TABLET 650 MG PO (11:34)
--- NOTE | 2023-10-02 12:21 | PT-IP ANOTE ---
pt's INR down to 2.5 but continues to be not appropriate for PT. checked with nurse and stated that with is with confusion and can be combative. d/c PT eval order at this time. pt aware to ask for new order when pt is more appropriate for PT.
--- NOTE | 2023-10-02 14:15 | CM.DPC ---
DCP Cont. Reviewed EMR and team rounds for updates. Spoke with pt's , Avani this morning re: the PT recommendation for SNF rehab. She stated at that time that she would rather have pt d/c home w/resuming [facility]. As the day went on, pt became increasingly agitated, had reportedly been hallucinating all night after receiving the hydromorphone. He became combative and delirious, but seemed to calm for a brief time while his scientologist community support people visited him. He then required initiation of Haldol to calm him down as he again became agitated and restless. He presents now as calm and able to work with staff. Called pt's dtr, Neva, and requested that she text her mother (at work) and request that she bring us his woundcare supplies, and also that he is definitely going to need SNF rehab. He has [employer]. This INTERACTIVE GRAPHIC DESIGNER was unable to meet with her later in the day when she gets off work. Left her a note in the room and gave report to the INTERACTIVE GRAPHIC DESIGNER working tomorrow to f/u with Avani as to which facility she would prefer: [facility], [facility], or [facility].
[2023-10-02 14:48] LABS: Aspartate Aminotransferase 58 IU/L (17-59)
[2023-10-02 14:55] LABS: Aspartate Aminotransferase 48 IU/L (17-59)
[2023-10-02 15:23] LABS: Aspartate Aminotransferase 48 IU/L (17-59)
[2023-10-02] MEDS: LIDOCAINE 2% (GLYDO) 6 ML GEL TOP (16:30)
--- NOTE | 2023-10-02 16:41 | DIET.PN1 ---
Dietary Progress Note Assessment: PO 0-30% today, though much more stable at 75-100% yesterday. Per provider notes, pt experiencing some irritation and hallucinations (possibly r/t a medication). May have impacted PO today. Kidney labs improving with GFR at 42 L and Cr of 1.67 H. May benefit from Trey 1x per day if PO remains low, for chronic wounds. Ht: 177.8 cm Wt: 115.15 kg BMI: 37.5 Last BM: 09/28/23 (09/28/23 21:05) MNA: 10 Ej Score: 12 Diet: 10/01/23 Breakfast Carbohydrate Consistent Diet Diet Modifications: Carbohydrate level: Medium (3 CHO) Reflex DM orders: No Food Texture: Level 7 - Regular Liquid Consistency: Level 0 - Thin Nutrition Percent Meal Consumed 30% 10/02/23 13:21 Percent Meal Consumed 0% 10/02/23 08:41 Percent Meal Consumed 100% 10/01/23 18:00 Percent Meal Consumed 100% 10/01/23 12:53 Percent Meal Consumed 100% 10/01/23 08:30 Percent Meal Consumed 75% 09/30/23 18:00 Labs: RBC 3.64 X10^6/uL (4.5-5.9) L 10/02/23 03:55 Hgb 10.5 g/dL (13.5-17.5) L 10/02/23 03:55 Hct 30.8 % (41-53) L 10/02/23 03:55 Creatinine 1.67 mg/dL (0.66-1.25) H 10/02/23 03:55 Lactate 1.1 mmol/L (0.7-2.1) 09/28/23 20:32 NT-Pro-B Natriuret Pep 3070 pg/mL (<450) H 09/29/23 14:40 Monitoring/Evaluations: RD f/u 3-5 days Electronically Signed by: Татьяна Brown 10/02/23 16:41 Clinical Dietitian [address] [id number]
[2023-10-02 16:50] LABS: Aspartate Aminotransferase 51 IU/L (17-59)
[2023-10-02 17:26] LABS: Appearance Urine UA CLEAR; Bilirubin Urine UA NEGATIVE (NEGATIVE); Color Urine UA YELLOW; Glucose Urine UA NEGATIVE (Negative); Ketones Urine UA NEGATIVE (NEGATIVE); Leukocyte Esterase Urine UA TRACE (NEGATIVE); Nitrite Urine UA NEGATIVE (Negative); Occult Blood Urine UA 2+ (Negative); Protein Urine UA TRACE (Negative); pH Urine UA 7.5 (4.5-8.0)
[2023-10-02] MEDS: diazePAM 10 MG/2 ML SYRINGE 5 MG IV (17:36)
[2023-10-02 17:41] LABS: pH VBG 7.44 (7.33-7.43)
[2023-10-02 17:42] LABS: Fractionated Inspired Oxygen 28; HCO3 VBG 33 mmol/L (24-28); Oxygen Saturation VBG 60 % (70-75); PO2 VBG 31 mmHg (35-45); Total CO2 VBG 35 mmol/L (24-29)
[2023-10-02 17:44] LABS: Bacteria Urine Few (2-10); Culture Indicated Urine Specimen Cultured; RBC Urine 10-30/HPF (0-5/HPF); Squamous Epithelial Cell Urine 0-1 /HPF (0-5/HPF); WBC Urine 1-5/HPF (0-5/HPF)
[2023-10-02] MEDS: QUETIAPINE 25 MG TABLET 50 MG PO (21:02)
[2023-10-02] MEDS: cefTRIAXone 2,000 MG in SODIUM CHLORIDE 0.9% 100 ML 200 MG IV (23:13)
[2023-10-03] VITALS (35 sets, daily range): BP systolic 108–144; BP diastolic 55–103; PULSE 74–160; RESP 16–50; TEMP 36.2–37; O2SAT 87–98
[2023-10-03] MEDS: diazePAM 10 MG/2 ML SYRINGE 5 MG IV ×3 (01:33→19:55)
[2023-10-03 06:27] LABS: Add Manual Diff / Slide Review NO; Basophils Absolute Auto 0 /uL (0-100); Basophils Percent Auto 0.5 % (0-2); Eosinophils Absolute Auto 200 /uL (0-450); Eosinophils Percent Auto 3.3 % (2-4); Hematocrit 31.2 % (41-53); Hemoglobin 10.2 g/dL (13.5-17.5); Lymphocytes Absolute Auto 1100 /uL (1100-4500); Lymphocytes Percent Auto 14.3 % (25-40); Mean Corpuscular HGB Conc 32.8 % (30-36); Mean Corpuscular Hemoglobin 28.5 PG (26-34); Mean Corpuscular Volume 86.8 fL (80-100); Monocytes Absolute Auto 700 /uL (0-900); Monocytes Percent Auto 8.8 % (3-14); Neutrophils Absolute Auto 5500 /uL (1500-7000); Neutrophils Percent Auto 73.1 % (50-75); Platelet Count 103 X10^3/uL (150-400); Red Blood Cell Count 3.59 X10^6/uL (4.5-5.9); Red Cell Distribution Width 19.8 % (11.6-14.8); White Blood Cell Count 7.5 X10^3/uL (4.5-11.0)
[2023-10-03 06:34] LABS: INR 1.8 (0.9-1.3); Prothrombin Time 20.6 SECONDS (9.4-12.5)
[2023-10-03 06:37] LABS: Chloride 100 mmol/L (98-107); HEMOLYSIS < 15 (0-50)
[2023-10-03 06:39] LABS: Alanine Aminotransferase 37 IU/L (<50); Albumin 3.7 g/dL (3.5-5.0); Albumin Globulin Ratio 1.1 (1.0-2.8); Alkaline Phosphatase 106 U/L (38-126); Aspartate Aminotransferase 53 IU/L (17-59); BUN Creatinine Ratio 20.3 (6-22); Bilirubin Total 1.7 mg/dL (0.2-1.3); Blood Urea Nitrogen 31 mg/dL (9-20); Calcium 10.4 mg/dL (8.4-10.2); Carbon Dioxide 31 mmol/L (22-32); Estimated Glomerular Filt Rate 46 mL/min (>60); Globulin 3.3 g/dL (1.7-4.1); Glucose 88 mg/dL (80-110); Potassium 3.5 mmol/L (3.4-5.1); Sodium 137 mmol/L (137-145)
--- NOTE | 2023-10-03 07:44 | DI.RAD.S_ITS ---
PROCEDURE: XR CHEST 1V INDICATIONS: hypoxia TECHNIQUE: One view of the chest was acquired. COMPARISON: [facility], CR, XR CHEST 1V, 10/10/2022, 15:19. [facility], CR, XR CHEST 1V, 09/28/2023, 16:49. [facility], CR, XR CHEST 1V, 09/30/2023, 9:30. FINDINGS: Surgical changes and devices: None. Lungs and pleura: On this semiupright portable chest examination, no large pneumothorax or large pleural effusions are seen. Poorly defined patchy infiltrates are seen, which are worst centrally and are similar to 09/30/2023. Mediastinum: The cardiac contours are within normal limits. The aorta demonstrates calcification and tortuosity. Bones and chest wall: No suspicious bony lesions. Age-appropriate bony degenerative changes are seen. Overlying soft tissues appear unremarkable. IMPRESSION: Low lung volumes with abnormal patchy bilateral infiltrates, which are worst centrally. These infiltrates are similar to the prior examinations. Low lung volumes. Dictated by: Zac Nichole M.D. on 10/03/2023 at 10:17 Approved by: Zac Nichole M.D. on 10/03/2023 at 10:19
[2023-10-03] MEDS: METOPROLOL ER 25 MG TABLET 37.5 MG PO ×2 (08:16→20:04)
[2023-10-03] MEDS: QUETIAPINE 25 MG TABLET 50 MG PO ×2 (08:16→20:05)
[2023-10-03] MEDS: ACETAMINOPHEN 325 MG TABLET 650 MG PO ×2 (08:17→14:46)
[2023-10-03] MEDS: PANTOPRAZOLE DR 40 MG TABLET PO (08:17)
[2023-10-03] MEDS: LEVOTHYROXINE 137 MCG TABLET PO (08:19)
--- NOTE | 2023-10-03 12:15 | P.PN_ITS ---
Subjective Subjective Date Patient Seen: 10/03/23 Time Patient Seen: 11:00 Interval history: Patient seen for follow up of multiple issues including congestive heart failure, leg ulcers and atrial fibrillation. Unable to provide any information 2/2 to mental status changes. Exam Vital Signs (past 8 hours): - 10/03/23 04:16 10/03/23 04:16 10/03/23 04:17 Temperature Pulse Rate 91 H Respiratory Rate 26 H Blood Pressure 126/74 134/85 Pulse Oximetry 93 Oxygen Delivery Method Oxygen Flow Rate 10/03/23 04:17 10/03/23 04:19 10/03/23 04:19 Temperature Pulse Rate 103 H 96 H Respiratory Rate 36 H 34 H Blood Pressure 131/103 H Pulse Oximetry 93 94 Oxygen Delivery Method Oxygen Flow Rate 10/03/23 04:43 10/03/23 04:43 10/03/23 05:00 Temperature Pulse Rate 101 H Respiratory Rate 29 H Blood Pressure 144/90 H Pulse Oximetry 93 Oxygen Delivery Method Nasal Cannula Oxygen Flow Rate 10/03/23 05:01 10/03/23 05:01 10/03/23 06:00 Temperature Pulse Rate 91 H Respiratory Rate 28 H Blood Pressure 108/81 114/59 L Pulse Oximetry 93 Oxygen Delivery Method Oxygen Flow Rate 10/03/23 06:00 10/03/23 07:00 10/03/23 07:01 Temperature Pulse Rate 79 Respiratory Rate 31 H Blood Pressure 135/71 Pulse Oximetry 96 95 Oxygen Delivery Method Nasal Cannula Oxygen Flow Rate 3 10/03/23 07:01 10/03/23 08:00 10/03/23 08:00 Temperature Pulse Rate 97 H 92 H Respiratory Rate 35 H 32 H Blood Pressure 136/60 Pulse Oximetry 91 92 Oxygen Delivery Method Oxygen Flow Rate 10/03/23 08:16 10/03/23 08:46 10/03/23 08:59 Temperature Pulse Rate 84 86 Respiratory Rate Blood Pressure 136/60 136/76 Pulse Oximetry Oxygen Delivery Method Nasal Cannula Oxygen Flow Rate 10/03/23 09:00 10/03/23 09:00 10/03/23 10:00 Temperature Pulse Rate 82 Respiratory Rate 24 Blood Pressure 136/76 118/69 Pulse Oximetry 94 Oxygen Delivery Method Oxygen Flow Rate 10/03/23 10:00 10/03/23 11:56 10/03/23 11:56 Temperature Pulse Rate 76 74 Respiratory Rate 34 H 44 H Blood Pressure 113/55 L Pulse Oximetry 97 87 L Oxygen Delivery Method Oxygen Flow Rate 10/03/23 12:00 10/03/23 12:00 10/03/23 12:01 Temperature Pulse Rate 76 Respiratory Rate 35 H Blood Pressure 125/58 L 115/61 Pulse Oximetry 95 Oxygen Delivery Method Oxygen Flow Rate 10/03/23 12:01 10/03/23 12:09 Temperature 98.0 F Pulse Rate 80 91 H Respiratory Rate 32 H 28 H Blood Pressure 115/61 Pulse Oximetry 95 96 Oxygen Delivery Method Oxygen Flow Rate 3 Fraction of Inspired Oxygen 25 SaO2/FiO2 Ratio 342 Oxygen Delivery Method Nasal Cannula Oxygen Flow Rate 3 Narrative Exam Narrative: Lethargic, confused appearing male in no acute distress . Lungs with basilar crackles. Heart regular rate and rhythm. Abdomen is soft positive bowel sounds. Extremities with minimal edema, lower extremities wrapped bilaterally.Neurologic exam - confusion, agitation, does not respond to conversation. Objective Labs 10/03/23 04:54 10/03/23 04:54 Labs: Laboratory Results - last 24 hr 09/29/23 09/30/23 10/01/23 04:12 04:19 04:31 WBC RBC Hgb Hct MCV MCH MCHC RDW Plt Count Neut % (Auto) Lymph % (Auto) Russell % (Auto) Eos % (Auto) Baso % (Auto) Neut # (Auto) Lymph # (Auto) Russell # (Auto) Eos # (Auto) Baso # (Auto) PT INR VBG pH VBG pCO2 VBG pO2 VBG HCO3 VBG Total CO2 VBG O2 Saturation VBG Base Excess FiO2 Sodium Potassium Chloride Carbon Dioxide BUN Creatinine Estimated GFR BUN/Creatinine Ratio Glucose Calcium Total Bilirubin AST 58 51 48 ALT Alkaline Phosphatase Total Protein Albumin Globulin Albumin/Globulin Ratio Urine Color Urine Appearance Urine pH Ur Specific [place] Urine Protein Urine Glucose (UA) Urine Ketones Urine Occult Blood Urine Nitrate Urine Bilirubin Urine Urobilinogen Ur Leukocyte Esterase Urine RBC Urine WBC Ur Squamous Epith Cells Urine Bacteria Ur Culture Indicated? 10/02/23 10/02/23 10/02/23 03:55 16:45 16:57 WBC RBC Hgb Hct MCV MCH MCHC RDW Plt Count Neut % (Auto) Lymph % (Auto) Russell % (Auto) Eos % (Auto) Baso % (Auto) Neut # (Auto) Lymph # (Auto) Russell # (Auto) Eos # (Auto) Baso # (Auto) PT INR VBG pH 7.44 H VBG pCO2 49.0 VBG pO2 31 L VBG HCO3 33 H VBG Total CO2 35 H VBG O2 Saturation 60 L VBG Base Excess 9.0 H FiO2 28 Sodium Potassium Chloride Carbon Dioxide BUN Creatinine Estimated GFR BUN/Creatinine Ratio Glucose Calcium Total Bilirubin AST 48 ALT Alkaline Phosphatase Total Protein Albumin Globulin Albumin/Globulin Ratio Urine Color Yellow Urine Appearance Clear Urine pH 7.5 Ur Specific [place] 1.010 Urine Protein Trace H Urine Glucose (UA) Negative Urine Ketones Negative Urine Occult Blood 2+ H Urine Nitrate Negative Urine Bilirubin Negative Urine Urobilinogen 1.0 Ur Leukocyte Esterase Trace H Urine RBC 10-30/hpf H Urine WBC 1-5/hpf Ur Squamous Epith Cells 0-1 /hpf Urine Bacteria Few (2-10) H Ur Culture Indicated? Specimen cultured 10/03/23 04:54 WBC 7.5 RBC 3.59 L Hgb 10.2 L Hct 31.2 L MCV 86.8 MCH 28.5 MCHC 32.8 RDW 19.8 H Plt Count 103 L Neut % (Auto) 73.1 Lymph % (Auto) 14.3 L Russell % (Auto) 8.8 Eos % (Auto) 3.3 Baso % (Auto) 0.5 Neut # (Auto) 5500 Lymph # (Auto) 1100 Russell # (Auto) 700 Eos # (Auto) 200 Baso # (Auto) 0 PT 20.6 H D INR 1.8 H VBG pH VBG pCO2 VBG pO2 VBG HCO3 VBG Total CO2 VBG O2 Saturation VBG Base Excess FiO2 Sodium 137 Potassium 3.5 Chloride 100 Carbon Dioxide 31 BUN 31 H Creatinine 1.53 H Estimated GFR 46 L BUN/Creatinine Ratio 20.3 Glucose 88 Calcium 10.4 H Total Bilirubin 1.7 H AST 53 ALT 37 Alkaline Phosphatase 106 Total Protein 7.0 Albumin 3.7 Globulin 3.3 Albumin/Globulin Ratio 1.1 Urine Color Urine Appearance Urine pH Ur Specific [place] Urine Protein Urine Glucose (UA) Urine Ketones Urine Occult Blood Urine Nitrate Urine Bilirubin Urine Urobilinogen Ur Leukocyte Esterase Urine RBC Urine WBC Ur Squamous Epith Cells Urine Bacteria Ur Culture Indicated? [facility] Medical History Alcohol abuse GERD (gastroesophageal reflux disease) Mixed hyperlipidemia Essential hypertension Congestive heart failure Hypothyroidism Depression Venous stasis Esophageal ulceration Surgical History Status post appendectomy Family History Other Congestive heart failure Social History household members: spouse Smoking Status: Never smoker alcohol intake: never Assessment & Plan Assessment and plan (1) Bilateral cellulitis of lower leg: Status: Acute (2) Respiratory failure: Qualifiers: Chronicity: acute Respiratory failure complication: hypoxia and hypercapnia Qualified Code(s): J96.01 - Acute respiratory failure with hypoxia; J96.02 - Acute respiratory failure with hypercapnia Status: Acute (3) Acute CHF (congestive heart failure): Qualifiers: Heart failure type: combined systolic and diastolic Qualified Code(s): I50.41 - Acute combined systolic (congestive) and diastolic (congestive) heart failure Status: Acute (4) Acute kidney injury superimposed on chronic kidney disease: Status: Acute (5) Elevated INR: Status: Acute (6) Thrombocytopenia: Status: Acute (7) Chronic cutaneous venous stasis ulcer: Status: Acute (8) Non-pressure chronic ulcer of other part of left foot with unspecified severity: Status: Acute (9) Non-pressure ulcer of right lower extremity: Status: Acute (10) Non-pressure chronic ulcer left lower leg, limited to breakdown skin: Status: Acute (11) Weakness: Status: Acute (12) Dyspnea: Status: Acute (13) CHF exacerbation: Status: Acute Plan Congestive heart failure. Preserved ejection fraction acute on chronic. Lasix 40 mg IV daily. Cr downtrending and stable. Urinary catheter now back in place after being removed for patient agitation. UOP appropriate. Weight down almost 3 lbs from 2 days prior. Lungs with mild crackles. Repeat chest xr 10/03 largely unchanged from 09/30. Respiratory failure Likely 2/2 to congestive heart failure. Patient required intermittent BiPAP. Seems to help. Mostly when his atrial fibrillation is out of control probably multifactorial. Currently on 3L NC. Continue lasix. Atrial fibrillation. Taking home digoxin. Metoprolol increased yesterday. Vitals stable today. Delirium. New onset yesterday. Patient has decreased vision and hearing and is in the hospital. Certainly could be a part of this. Do not think he had a stroke. Currently unable to perform CT scan with patient agitation and movement. Dilaudid was discontinued. Seroquel and valium started with some improvement. Patient is largely unresponsive to commands. Will trial oxycodone 5mg q6hrs as he does seem to be in pain and is moaning constantly. Type 2 diabetes controlled Elevated INR. Improved today, now 1.8. Coumadin restarted 10/02. Continue daily eval. Severe sepsis. Improved. Will continue with ceftriaxone. GI prophylaxis continue pantoprazole. DVT prophylaxis on Coumadin. Hypothyroidism. We will follow. Hypokalemia resolved. BPH. Continue Flomax. Cellulitis. Suspect was cause of his infection. On ceftriaxone. Anemia. Chronic disease Disposition. I do not see this patient going home. I suspect he will need placement. We are not close to having that happened and was suspect it will be decided in 3-4 days. Patient is sick and potentially this could be terminal will have to see how things go. May need to consider hospice if things do not turn around. Will continue to follow. Quality VTE Deep Vein Thrombosis/Pulmonary Embolism Present on Admission: No
[2023-10-03] MEDS: FUROSEMIDE 40 MG/4 ML VIAL IV (12:40)
--- NOTE | 2023-10-03 13:17 | PC.NURSE ---
Addendum entered by Henrietta Pike R.N. 10/03/23 18:33: Pt ate most of dinner and drinking with assistance. Pt is A&O to person and place. Able to communicate basic needs. Pt is tachypneic with wheezes but told nurse he does not feel short of breath. RN assessed pt and noted expiratory wheezes, communicated neuro, respiratory, and I & O status to provider. Original Note: In am after assessing pt, RN reported orientation status (x1) to provider, along with other neuro assessment findings - intermittently follows commands, intermittently speaks 2-3 coherent words, moving all extremities; maintaining O2 Sats >88 with 3L O2 and diminished/coarse lung sounds, VS and rhythm. Provider ordered 1 view Cxray. After Cxray resulted, spoke with provider regarding increased work of breathing, coarse lung sounds throughout and generalized edema, provider ordered lasix. Intermittently pt will follow commands throughout the day. Opened eyes upon command and was able to state name and birthday.
--- NOTE | 2023-10-03 13:24 | CM.DPC ---
DCP Cont: Per MD and RN, pt continues to have delirium and unable to follow commands and Seroquel and Valium started yesterday with some improvements and pt currently with mitts on to reduce his risk of pulling lines. Pt continues on IV-Abx and diuresis and if pt does not make improvements then will need to consider Goals of Care discussion with family for possible hospice referral. PT/OT orders discontinued until pt more medically appropriate to participate. No SNF referrals made at this time due to pt's current inability to participate in PT/OT and not SNF appropriate at this time. Plan: SW to follow closely tomorrow to determine any improvements towards discussion with family regarding discharge planning needs. Pt's current use of medications and mitts could be a barrier for SNF placement and would need [employer] M[employer] Adv SNF auth. DAVIE Monteiro
[2023-10-03] MEDS: POTASSIUM CHLORIDE 20 MEQ/15 ML UDC 40 MEQ PO (14:34)
[2023-10-03] MEDS: WARFARIN 1 MG TABLET 2 MG PO (17:28)
[2023-10-03] MEDS: cefTRIAXone 2,000 MG in SODIUM CHLORIDE 0.9% 100 ML 200 MG IV (23:16)
[2023-10-04] VITALS (23 sets, daily range): BP systolic 101–123; BP diastolic 56–65; PULSE 63–102; RESP 21–39; TEMP 36.3–37.4; O2SAT 92–100
[2023-10-04] MEDS: diazePAM 10 MG/2 ML SYRINGE 5 MG IV ×3 (02:23→18:24)
[2023-10-04 04:58] LABS: INR 1.8 (0.9-1.3); Prothrombin Time 21.1 SECONDS (9.4-12.5)
[2023-10-04] MEDS: LEVOTHYROXINE 137 MCG TABLET PO (05:34)
[2023-10-04] MEDS: FUROSEMIDE 40 MG/4 ML VIAL IV (08:13)
[2023-10-04] MEDS: METOPROLOL ER 25 MG TABLET 37.5 MG PO ×2 (08:13→21:13)
[2023-10-04] MEDS: POTASSIUM CHLORIDE 20 MEQ/15 ML UDC 40 MEQ PO (08:13)
[2023-10-04] MEDS: PANTOPRAZOLE DR 40 MG TABLET PO (08:13)
[2023-10-04] MEDS: ACETAMINOPHEN 325 MG TABLET 650 MG PO ×2 (08:14→16:17)
[2023-10-04] MEDS: TAMSULOSIN 0.4 MG CAPSULE 0.8 MG PO (08:14)
[2023-10-04] MEDS: QUETIAPINE 25 MG TABLET 50 MG PO ×2 (08:14→21:12)
--- NOTE | 2023-10-04 10:36 | PM.PN.1 ---
Subjective Subjective Date Patient Seen: 10/04/23 Time Patient Seen: 08:30 Interval history: Patient seen for follow up of multiple issues including congestive heart failure, leg ulcers and atrial fibrillation. He is improved from an acute mental status standpoint this morning as he is able to answer my questions. He reports he is having lower back pain but is otherwise feeling well. He reports his breathing feels improved. Exam Vital Signs (past 8 hours): - 10/04/23 04:00 10/04/23 04:00 10/04/23 04:00 Temperature 97.6 F Pulse Rate 83 83 Respiratory Rate 27 H 27 H Blood Pressure 101/63 101/63 Pulse Oximetry 95 95 Oxygen Delivery Method Oxygen Flow Rate 2 10/04/23 06:00 10/04/23 07:00 10/04/23 08:00 Temperature 99.4 F Pulse Rate 76 82 Respiratory Rate 31 H 24 Blood Pressure 121/62 Pulse Oximetry 98 96 96 Oxygen Delivery Method Nasal Cannula Oxygen Flow Rate 2 2 10/04/23 08:13 10/04/23 08:43 Temperature Pulse Rate 82 63 Respiratory Rate Blood Pressure Pulse Oximetry Oxygen Delivery Method Oxygen Flow Rate Fraction of Inspired Oxygen 25 SaO2/FiO2 Ratio 342 Oxygen Delivery Method Nasal Cannula Oxygen Flow Rate 2 Narrative Exam Narrative: Lethargic appearing male in no acute distress . Lungs with basilar crackles. Heart regular rate and rhythm. Abdomen is soft positive bowel sounds. Extremities with minimal edema, lower extremities wrapped bilaterally.Neurologic exam - responsive to voice, able to answer questions appropriately. Not oriented to date or time. Aware he is in the hospital. Objective Labs 10/03/23 04:54 10/03/23 04:54 Labs: Laboratory Results - last 24 hr 10/04/23 04:30 PT 21.1 H INR 1.8 [facility] Medical History Alcohol abuse GERD (gastroesophageal reflux disease) Mixed hyperlipidemia Essential hypertension Congestive heart failure Hypothyroidism Depression Venous stasis Esophageal ulceration Surgical History Status post appendectomy Family History Other Congestive heart failure Social History household members: spouse Smoking Status: Never smoker alcohol intake: never Assessment & Plan Assessment and plan (1) Bilateral cellulitis of lower leg: Status: Acute (2) Respiratory failure: Qualifiers: Chronicity: acute Respiratory failure complication: hypoxia and hypercapnia Qualified Code(s): J96.01 - Acute respiratory failure with hypoxia; J96.02 - Acute respiratory failure with hypercapnia Status: Acute (3) Chronic cutaneous venous stasis ulcer: Status: Acute (4) Acute CHF (congestive heart failure): Qualifiers: Heart failure type: combined systolic and diastolic Qualified Code(s): I50.41 - Acute combined systolic (congestive) and diastolic (congestive) heart failure Status: Acute (5) Acute kidney injury superimposed on chronic kidney disease: Status: Acute (6) Elevated INR: Status: Acute (7) Thrombocytopenia: Status: Acute (8) Non-pressure chronic ulcer of other part of left foot with unspecified severity: Status: Acute (9) Non-pressure ulcer of right lower extremity: Status: Acute (10) Non-pressure chronic ulcer left lower leg, limited to breakdown skin: Status: Acute (11) Weakness: Status: Acute (12) Congestive heart failure: Status: Acute Plan Congestive heart failure. Preserved ejection fraction acute on chronic. Lasix 40 mg IV daily. Cr downtrending and stable. Urinary catheter now back in place after being removed for patient agitation. UOP appropriate for diuresis. Lungs with mild crackles. Repeat chest xr 10/03 largely unchanged from 09/30. Respiratory failure Likely 2/2 to congestive heart failure. Patient required intermittent BiPAP. Currently down to 2L NC. Continue lasix. RT eval and treat. Atrial fibrillation. Taking home digoxin. Metoprolol increased yesterday. Vitals stable today. Delirium. New onset 10/02. Patient has decreased vision and hearing and is in the hospital. Certainly could be a part of this. Do not think he had a stroke. Currently unable to perform CT scan with patient agitation and movement. Dilaudid was discontinued. Seroquel and valium started with improvement. Patient seems to have turned a corner and is responsive today. He knows he is in the hospital and is asking what happened the past few days. We will continue the valium as needed for agitation. Suspect hospital induced delirium. Type 2 diabetes controlled Elevated INR. Stable today at 1.8. Coumadin restarted 10/02. Continue daily eval. Severe sepsis. Improved. Will continue with ceftriaxone. GI prophylaxis continue pantoprazole. DVT prophylaxis on Coumadin. Hypothyroidism. We will follow. Hypokalemia resolved. BPH. Continue Flomax. Cellulitis. Suspect was cause of his infection. On ceftriaxone. Anemia. Chronic disease Disposition: Likely placement. From a mental status standpoint, seems to have turned a corner. We will need additional 2-3 days to allow patient to clear. Infection is well controlled on current antibiotics. Time Spent With Patient Time with patient: 50 to 69 minutes with 50% spent counseling/coordinating care Quality VTE Deep Vein Thrombosis/Pulmonary Embolism Present on Admission: No
--- NOTE | 2023-10-04 14:51 | CM.DPC ---
DCP Cont: Per MD, pt now making improvements and his mitts were removed and remains currently on Seroquel and Valium but able to answer questions appropriately and was able to tolerate some po intake. PT/OT ordered and pending and pt refused PT eval this afternoon. SW met with spouse and explained role and discussed likely need for SNF and spouse still remains hopeful he can d/c home with [facility] as she knows this would be pt's preference. Spouse states that if SNF needed, pt would not want [facility] as he was there last year after hospital admission. Spouse states her preference of [facility] contracted SNFs would be [facility] due to location. Spouse aware that [facility] and [facility] likely other contracted facilities. SW inquired about Medicaid LTC application and spouse states she has not received it yet and SW explained the purpose of LTC application for either [facility] in the home or out of home placement at [facility] type setting. Spouse states she doesn't think pt would agree to moving out of the home but she is interested in Medicaid LTC for [facility] especially for the hours while she is at work. Spouse requested application be provided tomorrow as she is in a hurry to get to work at this time. Plan: SW to follow closely for PT/OT eval towards sending SNF referrals to 1) [facility] 2) [facility] and maybe [facility] and to provide spouse with Medicaid LTC application for future help with in-home caregiving. DAVIE Monteiro
[2023-10-04] MEDS: LIDOCAINE 5% PATCH 1 EACH TOP (16:17)
[2023-10-04] MEDS: WARFARIN 2.5 MG TABLET PO (17:30)
[2023-10-04] MEDS: cefTRIAXone 2,000 MG in SODIUM CHLORIDE 0.9% 100 ML 200 MG IV (23:35)
[2023-10-05] VITALS (27 sets, daily range): BP systolic 100–125; BP diastolic 52–81; PULSE 71–100; RESP 15–43; TEMP 36.6–37.2; O2SAT 91–100
[2023-10-05] MEDS: diazePAM 10 MG/2 ML SYRINGE 5 MG IV (01:24)
[2023-10-05] MEDS: OXYCODONE IR 5 MG TABLET PO ×2 (04:17→16:04)
[2023-10-05] MEDS: LEVOTHYROXINE 137 MCG TABLET PO (06:17)
--- NOTE | 2023-10-05 06:34 | PC.NURSE ---
pt has been more restless this shift despite valium and po pain med; iv sites discontinued and new iv started to left forearm; pt is tolerating po intake and swallowing pills without difficulty; he has been repositioned more often than every 2 hours and with the use of multiple pillows
--- NOTE | 2023-10-05 08:38 | PM.PN.1 ---
Subjective Subjective Date Patient Seen: 10/05/23 Time Patient Seen: 08:38 Interval history: Patient seen in follow-up of multiple issues delirium and congestive heart failure and atrial fibrillation. Patient actually has been improved over the last 24 hours. Has been more awake. He has not required as much medication. Mostly having pain in his back. With no other changes. Does not mobilize. No other change. Exam Vital Signs (past 8 hours): - 10/05/23 04:00 10/05/23 04:00 10/05/23 07:23 Temperature 98.2 F 98.2 F Pulse Rate 77 77 75 Respiratory Rate 15 15 Blood Pressure 123/67 123/67 Pulse Oximetry 98 98 97 Oxygen Delivery Method Nasal Cannula Oxygen Flow Rate 2.5 2.5 Fraction of Inspired Oxygen 30 Fraction of Inspired Oxygen 30 SaO2/FiO2 Ratio 323 Oxygen Delivery Method Nasal Cannula Oxygen Flow Rate 2.5 Narrative Exam Narrative: Alert male in no acute distress fatigued in appearance Lungs with few crackles at the base heart irregular rate and rhythm. Abdomen is benign extremities look great. Ulcers are wrapped. Objective Labs 10/03/23 04:54 10/03/23 04:54 [facility] Medical History Alcohol abuse GERD (gastroesophageal reflux disease) Mixed hyperlipidemia Essential hypertension Congestive heart failure Hypothyroidism Depression Venous stasis Esophageal ulceration Surgical History Status post appendectomy Family History Other Congestive heart failure Social History household members: spouse Smoking Status: Never smoker alcohol intake: never Assessment & Plan Assessment & Plan narrative: Delirium. Patient markedly improved. Has been interactive and appropriate. Etiology still unclear but possibly was secondary to worsening congestive heart failure. Overall doing better. Will continue current medication and limit psychoactive medications as much as possible. New onset back pain secondary to probably not moving much. Will continue Tylenol around the clock as much as possible without pain medicines otherwise and see how he does. Hopefully physical therapy will work with him today and will see how that goes. Congestive heart failure. Improved. Will see how he continues to respond with Lasix see how his kidneys do and re-evaluate tomorrow. BPH with indwelling Page. Hopefully can discontinue that tomorrow will see how his day goes today Atrial fibrillation. Actually rate is well-controlled on his current medication. Seems to be doing extremely well. Rates in the 80s and 90s. Will continue to follow INR and re-evaluate. Not sure where we will be may need to increase Type 2 diabetes controlled. Severe sepsis. Appears to be resolved. We will continue ceftriaxone for now. Probably will be able to discharge without antibiotics presumed secondary to cellulitis. Although whether or not there was a pulmonary component still is unclear DVT prophylaxis on Coumadin not quite where we want it to be but will not add anything. GI prophylaxis continue pantoprazole. Hypothyroidism stable Hypokalemia resolved. BPH seems to be urinating fine Anemia chronic disease Disposition. Almost certainly going to be placed. Physical therapy today hopefully will mobilize him. 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
[2023-10-05] MEDS: POTASSIUM CHLORIDE 20 MEQ/15 ML UDC 40 MEQ PO (09:40)
[2023-10-05] MEDS: LIDOCAINE 5% PATCH 1 EACH TOP (09:40)
[2023-10-05] MEDS: PANTOPRAZOLE DR 40 MG TABLET PO (09:41)
[2023-10-05] MEDS: FUROSEMIDE 40 MG/4 ML VIAL IV (09:41)
[2023-10-05] MEDS: METOPROLOL ER 25 MG TABLET 37.5 MG PO ×2 (09:41→21:43)
[2023-10-05] MEDS: QUETIAPINE 25 MG TABLET 50 MG PO ×2 (09:41→21:45)
[2023-10-05] MEDS: TAMSULOSIN 0.4 MG CAPSULE 0.8 MG PO (09:42)
[2023-10-05] MEDS: ACETAMINOPHEN 325 MG TABLET 650 MG PO ×3 (09:42→21:45)
[2023-10-05 10:31] LABS: Add Manual Diff / Slide Review NO; Basophils Absolute Auto 0 /uL (0-100); Basophils Percent Auto 0.2 % (0-2); Eosinophils Absolute Auto 200 /uL (0-450); Hematocrit 31.5 % (41-53); Hemoglobin 10.2 g/dL (13.5-17.5); Lymphocytes Absolute Auto 700 /uL (1100-4500); Lymphocytes Percent Auto 9.3 % (25-40); Mean Corpuscular HGB Conc 32.5 % (30-36); Mean Corpuscular Hemoglobin 28.7 PG (26-34); Mean Corpuscular Volume 88.5 fL (80-100); Monocytes Absolute Auto 600 /uL (0-900); Monocytes Percent Auto 7.5 % (3-14); Neutrophils Absolute Auto 6500 /uL (1500-7000); Platelet Count 99 X10^3/uL (150-400); Red Blood Cell Count 3.56 X10^6/uL (4.5-5.9); Red Cell Distribution Width 19.4 % (11.6-14.8); White Blood Cell Count 8.1 X10^3/uL (4.5-11.0)
[2023-10-05 11:14] LABS: INR 2.9 (0.9-1.3); Prothrombin Time 33.8 SECONDS (9.4-12.5)
[2023-10-05 11:20] LABS: Alanine Aminotransferase 41 IU/L (<50); Albumin 3.4 g/dL (3.5-5.0); Alkaline Phosphatase 114 U/L (38-126); Aspartate Aminotransferase 55 IU/L (17-59); BUN Creatinine Ratio 25.2 (6-22); Bilirubin Total 1.3 mg/dL (0.2-1.3); Blood Urea Nitrogen 33 mg/dL (9-20); Calcium 9.8 mg/dL (8.4-10.2); Carbon Dioxide 33 mmol/L (22-32); Chloride 97 mmol/L (98-107); Estimated Glomerular Filt Rate 56 mL/min (>60); Globulin 3.3 g/dL (1.7-4.1); Glucose 81 mg/dL (80-110); HEMOLYSIS 19 (0-50); Potassium 3.8 mmol/L (3.4-5.1); Sodium 135 mmol/L (137-145); Total Protein 6.7 g/dL (6.3-8.2)
--- NOTE | 2023-10-05 14:37 | PT.IIE ---
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 (09/28/23) Acute respiratory failure with hypoxia (09/28/23) Acute respiratory failure with hypercapnia (09/28/23) Cellulitis of right lower limb (09/28/23) Cellulitis of left lower limb (09/28/23) Non-pressure chronic ulcer of other part of left foot with unspecified severity (09/28/23) Non-pressure chronic ulcer of unspecified part of unspecified lower leg with unspecified severity (09/28/23) Non-pressure chronic ulcer of unspecified part of right lower leg with unspecified severity (09/28/23) Non-pressure chronic ulcer of unspecified part of left lower leg limited to breakdown of skin (09/28/23) Acute kidney failure, unspecified (09/28/23) Chronic kidney disease, unspecified (09/28/23) Dyspnea, unspecified (09/28/23) Weakness (09/28/23) Abnormal coagulation profile (09/28/23) Surgical History (Last Reviewed 09/30/23 @ 09:26 by Anabel Montana MD) Status post appendectomy Medical History (Last Reviewed 09/30/23 @ 09:26 by Anabel Montana MD) Alcohol abuse Congestive heart failure Depression Esophageal ulceration Essential hypertension GERD (gastroesophageal reflux disease) Hypothyroidism Mixed hyperlipidemia Venous stasis Physical Therapy Inpatient Evaluation/Re-Eval M1 PT/OT-IP Prior Functional Status Start: 10/01/23 16:57 Freq: NEEDED Status: Active Protocol: Document 10/05/23 14:37 AW (Rec: 10/05/23 17:08 AW [id number]) Medical Review Prior Functional Status Medical History Reviewed Yes Communication Pt is very [place], uses an amplifier device which he wears around his neck. He is typically able to makes his needs known. Mobility and Gait Uses a 4WW for mobilizing outside the home. Tends to use what he calls anchor points in his home to help navigate. He is essentially surfing furniture at home. Activities of Daily Living and IADL's Does not like to wear a lot of clothes but is able to dress himself. Unclear whether patient has been showering - either with or without assist. Spouse does all shopping and most cooking, cleaning. Social History Household Members spouse Living Arrangements Mobile home Number of Floors (Floors) One Floor Number of Stairs To Enter/Railing? Ramped entry to 40' x 8' trailer Home Environment Standard Height Toilet,Tub/ Shower,Ramp Home Equipment Four Wheel Walker,Shower Seat without Backrest,Hand Held Shower,Grab Bars In Shower Additional Social History Comment Pt lives with his spouse, Avani, who works nearly casino floor person. Pt sleeps in an anti- gravity chair at home. It is unclear what other social supports pt may have and pt is a poor historian at this encounter. M2 PT-IP Current Condition Start: 10/01/23 16:57 Freq: NEEDED Status: Active Protocol: Document 10/05/23 14:37 AW (Rec: 10/05/23 17:08 AW [id number]) Physical Therapy Current Condition Current Condition Evaluation Date 10/05/23 Treatment Diagnosis delirium, CHF exacerbation; impaired mobility and gait Onset Date 09/28/23 M3 PT-IP Subjective Start: 10/01/23 16:57 Freq: NEEDED Status: Active Protocol: Document 10/05/23 14:37 AW (Rec: 10/05/23 17:08 AW [id number]) Subjective Physical Therapy Visit Type Type Initial Evaluation Visit Start Time 13:48 Visit Stop Time 14:37 Total Visit Minutes 49 Notes Co-eval with OT due to pt's low activity tolerance Physical Therapy Visit Comments Patient Comments Pt is speaking in phrases, not complete sentences. He nods consent to PT assessment. Therapy Pain Assessment Pain When Pain Assessed During Mobility Pain Present Pain Present Unable to Respond FLACC Pain Scale Face Occasional grimace/frown Legs Uneasy, restless, tense Activity Squirming,shifting Cry Moans/whimpers/complains Consolability Reassurable with touch FLACC Total 5 M4 PT-IP Mobility and Gait Start: 10/01/23 16:57 Freq: NEEDED Status: Active Protocol: Document 10/05/23 14:37 AW (Rec: 10/05/23 17:23 AW [id number]) PT-Bed Mobility Assessment Rolling Level of Assist Moderate Assistance,2 Person Assistance Supine to Sit Supine to Sit Moderate Assistance,2 Person Assistance,Head of Bed Elevated,Bedrails Sit to Supine Sit to Supine Moderate Assistance,2 Person Assistance,Bedrails PT-Transfer Assessment Sit to and From Stand Sit to and from Stand Moderate Assistance,2 Person Assistance,Use of Upper Extremities Equipment Transfer Assistive Device Gait Belt,Front Wheeled Walker ,4 Wheeled Walker Transfers Transfer Destination Bed,Bedside Commode Transfer Technique Stand Step Pivot Transfer Ability Level of Assist Moderate Assistance,2 Person Assistance,Use of Upper Extremities Comments Mobility Comments Pt is found resting in bed after bed bath and linens change. He is agreeable to PT assessment. Pt needs frequent redirection and mod assist x 2 people to transition to sitting EOB. Sitting balance is fair to good once feet are on the floor. Quality of movement is slow and with delayed righting reactions. Pt tolerates sitting >10 minutes , able to follow commands but needing increased time for processing and to accommodate for hearing impairment. Pt stands with mod A x 2 to 4WW ( his preferred device). Max A x 2 for transfer to commode. 4WW is not stable enough for pt at this time. On the commode, pt strains to have a bowel movement. RN aware that pt is quite uncomfortable. PT cues pt for diaphragmatic breathing and for pelvic rocking in order to assist with bowel movement. Pt able to follow cues but without luck in moving his bowels. FWW is used for transfer back to bed which again requries max A x 2. Pt repositioned in bed, noting he has struck through the dressing on his L LE wounds with blood apparent on the sock. RN aware. Gait Assessment Comments Gait Comments Unable to progress to functional gait at this time. PT-Balance Assessment Sitting Balance and Reactions Static Sitting Balance Ability Fair Dynamic Sitting Balance Ability Poor Standing Balance and Reactions Static Standing Balance Ability Poor Dynamic Standing Balance Ability Poor Device Used FWW M5 PT-IP Objective Assessments Start: 10/01/23 16:57 Freq: NEEDED Status: Active Protocol: Document 10/05/23 14:37 AW (Rec: 10/05/23 17:23 AW [id number]) Orientation Orientation/Cognition Level of Alertness Confusional State Orientation Name,Month Strength Lower Extremity Strength Assessment Bilaterally Impaired Hip 3+/5 Knee 4-/5 Ankle 4-/5 Sensation Assessment Comments Sensation Comments Difficult to assess secondary to wounds M6 PT-IP Treatment Start: 10/01/23 16:57 Freq: NEEDED Status: Active Protocol: Document 10/05/23 14:37 AW (Rec: 10/05/23 17:23 AW [id number]) Physical Therapy Treatment Other Treatments Other Treatment Performed Seated balance activities on edge of bed and on commode. M7 PT-IP Assessment and Plan Start: 10/01/23 16:57 Freq: NEEDED Status: Active Protocol: Document 10/05/23 14:37 AW (Rec: 10/05/23 17:23 AW [id number]) PT Summary Assessment and Plan Potential Rehabilitation Potential Fair Status of Condition at Evaluation Evolving Summary Impairments Pain,ROM,Strength,Balance, Sensation,Cognition,Bed Mobility,Transfers,Gait, Activity Tolerance Assessment Summary Jay Reed is a 78 yo man admitted with acute delirium and CHF exacerbation. PLOF: Pt is modified independent using anchor points to move around his trailer and a 4WW outside. He sleeps in a chair with his legs elevated. He lives with his spouse who works ~4 days per week. He has no caregivers at present but his spouse is working on application for caregiver assist. CLOF: Pt is quite weak and requires frequent redirection for mobility. Mod to max assist x 2 people is currently required for bed mobility and transfers. Pt is unable to progress to functional gait this date. 4WW is not safe and PT recommends use of FWW at this time. Pt is well below his established baseline for mobility and will require SNF for ongoing rehab services once he discharges. Will continue to follow and progress mobility as tolerated per plan of care. Goals Bed Mobility Goal Minimal Assistance Transfer Goal Contact Guard Assistance,Front Wheeled Walker Gait Goal Contact Guard Assistance,Front Wheel Walker Gait Distance 50 Other Goals - improve gait to 150' using 4WW with SBA Days to Meet Goals 10 Frequency of Treatment Frequency Of Treatment Once a Day Treatment Plan Physical Therapy Treatment Plan Bed Mobility Training,Transfer Training,Gait Training, Therapeutic Exercise,Balance Retraining,Discharge Planning, Hot or Cold Pack,Neuromuscular Re-ed Other Recommendations and Next Treatment transfer training; gait with Focus FWW and chair follow as tolerated Recommendations To Nursing Amount of Assist Needed 2 Person Assist Discharge Recommendations PT Discharge Recommendations SNF Rehab Transportation Needs at Discharge Wheelchair/Cabulance
--- NOTE | 2023-10-05 15:47 | CM.DPC ---
DCP SNF Planning Per MD, pt continues to make slow progress and to attempt working with PT/OT today and likely not medically cleared or stable for another couple days. PT/OT notes not yet available in EMR by end of shift, but per RN PT/OT did co-treat and was a heavy 2PA. SW made initial referral to spouse's preference 1) [facility] 2) [facility] and [facility] but will need to send PT/OT notes tomorrow Tues when available. SW spoke to Lea ai at [facility] and she confirms they accept pt's insurance and have open beds and SW updated on pt situation and status. Plan: SW to follow closely for SNF reviews and to fax PT/OT notes tomorrow and to continue to review pt's started PASRR to see if pt will remain on Seroquel and Valium or not. DAVIE Monteiro
[2023-10-05] MEDS: polyethylene glycoL 3350 17 GM POWD.PACK PO (16:04)
[2023-10-05] MEDS: MAGNESIUM HYDROXIDE 30 ML UDC PO (16:04)
--- NOTE | 2023-10-05 17:34 | OT.IP.EVAL ---
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 (09/28/23) Acute respiratory failure with hypoxia (09/28/23) Acute respiratory failure with hypercapnia (09/28/23) Cellulitis of right lower limb (09/28/23) Cellulitis of left lower limb (09/28/23) Non-pressure chronic ulcer of other part of left foot with unspecified severity (09/28/23) Non-pressure chronic ulcer of unspecified part of unspecified lower leg with unspecified severity (09/28/23) Non-pressure chronic ulcer of unspecified part of right lower leg with unspecified severity (09/28/23) Non-pressure chronic ulcer of unspecified part of left lower leg limited to breakdown of skin (09/28/23) Acute kidney failure, unspecified (09/28/23) Chronic kidney disease, unspecified (09/28/23) Dyspnea, unspecified (09/28/23) Weakness (09/28/23) Abnormal coagulation profile (09/28/23) Past Medical History (Last Reviewed 09/30/23 @ 09:26 by Anabel Montana MD) Alcohol abuse Congestive heart failure Depression Esophageal ulceration Essential hypertension GERD (gastroesophageal reflux disease) Hypothyroidism Mixed hyperlipidemia Venous stasis Surgical History (Last Reviewed 09/30/23 @ 09:26 by Anabel Montana MD) Status post appendectomy Occupational Therapy Inpatient Evaluation/Re-Eval M1 PT/OT-IP Prior Functional Status Start: 10/05/23 08:50 Freq: NEEDED Status: Active Protocol: Document 10/05/23 16:40 ROSHANILNAYA (Rec: 10/05/23 17:33 ROSHANILNAYA [id number]) Medical Review Prior Functional Status Medical History Reviewed Yes Communication pt was able to communicate needs. pt is [place] and uses an amplifier. Mobility and Gait pt was mod I with mobility using his 4WW, per chart review Activities of Daily Living and IADL's pt was a poor historian during eval. It is unclear how much assistance he needed with his ADLs prior to admission. Pt's works and his son lives nearby. Prior Functional Level (Other details) Pt reports sleeping in a zero gravity chair Social History Household Members spouse Living Arrangements Mobile home Number of Floors (Floors) One Floor Number of Stairs To Enter/Railing? ramp to enter Home Environment Standard Height Toilet,Tub/ Shower Home Equipment Four Wheel Walker,Shower Seat without Backrest,Hand Held Shower,Grab Bars In Shower Additional Social History Comment Pt's spouse works. M2 OT-IP Current Condition Start: 10/05/23 08:50 Freq: Status: Active Protocol: Document 10/05/23 16:40 ARNEL (Rec: 10/05/23 17:33 [facility] TO [facility] [id number]) Occupational Therapy Current Condition Current Condition Evaluation Date 10/05/23 Treatment Diagnosis weakness, fatigue, SOB, CHF exacerbation Diagnosis Onset Date 09/28/23 M3 OT- IP Subjective and Pain Start: 10/05/23 08:50 Freq: Status: Active Protocol: Document 10/05/23 16:40 ARNEL (Rec: 10/05/23 17:33 [email or web address] [id number]) OT- Subjective Occupational Therapy Visit Type Type Initial Evaluation Visit Start Time 13:48 Visit Stop Time 14:38 Total Visit Minutes 50 Notes Pt reclined in bed with nursing finishing up ADLs on entrance of therapists. Pt was agreeable to participating in OT/PT co-eval. Occupational Therapy Visit Comments Patient Comments Pt was concerned about needing to have a bm. Nursing notified of pts discomfort following eval. OT Pain Assessment Pain When Pain Assessed After Treatment Location Back Pain Behaviors Calling Out,Facial Grimacing, Holding Area Management Techniques Re-positioning M4 OT- IP ADL's Start: 10/05/23 08:50 Freq: Status: Active Protocol: Document 10/05/23 16:40 ARNEL (Rec: 10/05/23 17:33 ROSHANILNAYA [id number]) OT [id number] Comments OT Self-Feeding Comments not observed, no deficits anticipated OT ADL-Grooming Comments OT Grooming Comments not observed, pt had just finished ADLs with nursing at start of eval. OT ADL-Oral Care Comments Oral Care Comments pt declined performing oral hygiene OT ADL-Dressing General Eval Lower Body Dressing Ability Total Assistance Areas Needing Assistance Underpants/Brief,Socks Comments OT Dressing Comments UB dressing not observed on eval. Pt required total A to manage his brief and B socks. Pt currently undergoing wound care for B LEs. Pt would benefit from education of LB AE for underwear and pants, but may not be appropriate for socks/shoes due to wound care management at this time. OT ADL-Toileting General Evaluation Toileting Ability Total Assistance Areas Needing Assistance Empty Catheter or Colostomy, Manage Clothing Comments OT Toileting Comments Pt attempted toileting on BSC. Pt required total A for managing brief and is currently using a catheter for bladder. Pt expressed concern about needing to have a bm but was unable to. Pt strained in attempt to force bm and required vcs to not hold his breath. OT ADL-Bathing Comments OT Bathing Comments pt had just completed ADLs with nursing, bathing not observed at this time. M5 OT- IP IADL's Start: 10/05/23 08:50 Freq: Status: Active Protocol: Document 10/05/23 16:40 ARNEL (Rec: 10/05/23 17:33 ROSHANILNAYA [id number]) OT-Instrumental Activities of Daily Living Deficits IADL Deficits Identified Deficits Home Safety Awareness Awareness of Need for Assistance at Home Decreased Awareness Medication Management Medication Management Caregiver Administers Medication Management Comments pt was a poor historian at time of eval. per chart review , pt's spouse has been providing assist with this for an extended period of time Money Management Money Management Caregiver Provides Assistance Money Management Comments pt was a poor historian at time of eval. per chart review , pt's spouse has been providing assist with this for an extended period of time Meal Preparation Meal Preparation Caregiver Provides Assist Meal Preparation Comments pt was a poor historian at time of eval. per chart review , pt's spouse has been providing assist with this for an extended period of time Chief Physical Therapist Chief Physical Therapist Caregiver Provides Assist Chief Physical Therapist Comments pt was a poor historian at time of eval. per chart review , pt's spouse has been providing assist with this for an extended period of time Driving Driving Caregiver Provides Assist Driving Comments pt was a poor historian at time of eval. per chart review , pt's spouse has been providing assist with this for an extended period of time M6 OT- IP Functional Cognition Start: 10/05/23 08:50 Freq: Status: Active Protocol: Document 10/05/23 16:40 [facility] (Rec: 10/05/23 17:33 [facility]END[facility] S[facility] TO [facility] [id number]) Cognitive Factors Limiting Selfcare Function Cognitive Ability Level of Alertness Alert Patient Orientation Name,Year,Place Attention Span Ability Capable of Focused Attention, Capable of Sustained Attention Ability to Follow Commands Able to Follow One Step Commands Memory Description No Deficits Noted Safety Awareness Underestimates Need for Assistance Problem Solving Ability Needs Assist to Identify Solutions Cognitive Comments Cognitive Assessment Comments Pt is very hard of hearing. Pt had difficulty understanding questions and directions. Pt did not answer questions with respect to his home situation. That information has been obtained through chart review. Pt often answered question by talking about a piece of exercise equipment that he has on his porch. Pt expressed that he was looking forward to using it. OT- Vision and Hearing OT- Hearing Assessment OT- Hearing Assessment Hearing Impaired OT- Vision Assessment Visual Acuity Glasses All The Time Vision Assessment Comments Pt uses an amplifier for his hearing. M7 OT- IP Mobility and Balance Start: 10/05/23 08:50 Freq: Status: Active Protocol: Document 10/05/23 16:40 [facility] (Rec: 10/05/23 17:33 [facility] TO [facility] [id number]) OT- Bed Mobility Assessment Supine to Sit Supine to Sit Assist Moderate Assistance,2 Person Assistance,Head of Bed Elevated,Bedrails Sit to Supine Sit to Supine Assist Moderate Assistance,2 Person Assistance,Head of Bed Elevated,Bedrails Scooting Scooting to Edge of Bed Moderate Assistance,2 Person Assistance,Bedrails OT-Transfer Assessment Sit to and From Stand Sit to and from Stand Moderate Assistance,2 Person Assistance Transfers Transfer Ability Maximum Assistance,2 Person Assistance Technique Transfer Destination Bed,Bedside Commode Transfer Technique Stand Step Pivot Devices Transfer Assistive Devices Bed Rail,Gait Belt,Front Wheeled Walker,4 Wheeled Walker Comments Mobility Comments Pt requires vcs for sequencing and safety when reaching back to sit. T/f from bed to BSC was performed with pt's home 4WW. Pt demonstrated decreased safety with this. Pt had improved safety when returning to the bed with FWW. OT- Balance Assessment Sitting Balance and Reactions Static Sitting Balance Ability Fair Dynamic Sitting Balance Ability Poor Standing Balance and Reactions Static Standing Balance Ability Fair Dynamic Standing Balance Ability Poor M8 OT- IP Objective Assessments Start: 10/05/23 08:50 Freq: Status: Active Protocol: Document 10/05/23 16:40 ARNEL (Rec: 10/05/23 17:33 [facility] [id number]) OT Gross Range of Motion Upper Extremity Range of Motion Assessment Within Functional Limits ROM Impairments Pt has decreased ROM equal B' ly in shoulders, otherwise B UEs WFL. OT Strength Upper Extremity Strength Shoulder 3+ R, 3+ L Elbow 4 R, 4- L Hand 4 R, 4- L Hand Manager Family Strength Hand Dominance Right Comments Strength Comments Pt required increased vcs and repetition to perform MMT OT-Muscle Tone Assessment Muscle Tone WNL Yes M9 OT- IP Assessment and Plan Start: 10/05/23 08:50 Freq: Status: Active Protocol: Document 10/05/23 16:40 ARNEL (Rec: 10/05/23 17:33 PENDING SALE TO [facility] [id number]) OT Summary Assessment and Plan Potential Rehabilitation Potential Fair Summary OT Impairments Pain,Strength,Balance, Functional Mobility,Grooming, Dressing,Toileting,Bathing, Toilet Transfers,Shower Transfers,Activity Tolerance Progress Towards Goals Slow Progress due to Medical Issues,Slow Progress due to Activity Tolerance Assessment Summary Pt is 78 yo M who presented to the ER with confusion, SOB, weakness, fatigue, and sever hypoxia. Pt was pleasant and cooperative with OT/PT co-eval . Pt is [place] and requires directions to be repeated and had a difficult time answering questions. Pt is weak and requires frequent redirection and rbs. Pt demonstrates decreased activity tolerance, muscle weakness, impaired BADLs, and impaired functional t/fs. Pt would benefit from continued skilled OT services to address deficits and promote safe return to PLOF. Goals Self-Feeding Goal Independent Grooming Goal Standby Assistance Dressing Goal Minimal Assistance Toileting Goal Standby Assistance Bathing Goal Standby Assistance Toilet Transfer Goal Standby Assistance Shower Transfer Goal Standby Assistance Days to Meet Goals 14 Frequency of Treatment Frequency Of Treatment Once a Day Treatment Plan OT Treatment Plan ADL Training,Functional Mobility,Therapeutic Exercises ,Patient/Family Education, Discharge Planning Discharge Recommendations OT Discharge Recommendations SNF Rehab Transportation Needs at Discharge Private Vehicle,Wheelchair/ Cabulance
[2023-10-05] MEDS: WARFARIN 2.5 MG TABLET PO (17:56)
[2023-10-05] MEDS: SODIUM CHLORIDE 0.9% FLUSH 10 ML IV (21:46)
[2023-10-05] MEDS: cefTRIAXone 2,000 MG in SODIUM CHLORIDE 0.9% 100 ML 200 MG IV (22:41)
[2023-10-06] VITALS (24 sets, daily range): BP systolic 114–130; BP diastolic 55–71; PULSE 69–103; RESP 14–32; TEMP 36.1–37.4; O2SAT 87–99
[2023-10-06] MEDS: OXYCODONE IR 5 MG TABLET PO ×2 (00:19→20:50)
[2023-10-06 05:33] LABS: INR 2.9 (0.9-1.3); Prothrombin Time 33.1 SECONDS (9.4-12.5)
[2023-10-06] MEDS: LEVOTHYROXINE 137 MCG TABLET PO (06:08)
--- NOTE | 2023-10-06 06:32 | PC.NURSE ---
Leather Stamper Note-Patient was able to sleep. Oriented to person and place. Up to BSC, large hard stool disimpacted from rectum, patient requesting olive oil Remains on 2L NC, SpO2 > 92%, upper airway congestion clears with cough.
--- NOTE | 2023-10-06 08:21 | P.PN_ITS ---
Subjective Subjective Date Patient Seen: 10/06/23 Time Patient Seen: 08:21 Interval history: Patient seen in follow-up multiple issues including delirium congestive heart failure atrial fibrillation. Patient main complaint today is back pain. Seems to be interactive and appropriate. Pain is all Low back no radiation. otherwise no change. No radiation. All and low back. Physical therapy got him up yesterday for the 1st time. Seems to be overall improving. Still on 2 L. L Exam Vital Signs (past 8 hours): - 10/06/23 02:00 10/06/23 04:00 10/06/23 04:32 Temperature Pulse Rate 76 72 Respiratory Rate 20 18 Blood Pressure 114/55 L Oxygen Delivery Method Oxygen Flow Rate Fraction of Inspired Oxygen 10/06/23 04:32 10/06/23 04:45 10/06/23 05:25 Temperature 99.3 F Pulse Rate 77 Respiratory Rate 19 Blood Pressure Oxygen Delivery Method Nasal Cannula Oxygen Flow Rate 2 2 Fraction of Inspired Oxygen 93 Fraction of Inspired Oxygen 93 SaO2/FiO2 Ratio 323 Oxygen Delivery Method Nasal Cannula Oxygen Flow Rate 2 Narrative Exam Narrative: HEENT exam mucous membranes moist neck supple without adenopathy lungs are clear heart is irregular but controlled rate abdomen is benign extremities in wraps Objective Labs 10/05/23 09:50 10/05/23 09:50 Labs: Laboratory Results - last 24 hr 10/05/23 10/06/23 09:50 05:15 WBC 8.1 RBC 3.56 L Hgb 10.2 L Hct 31.5 L MCV 88.5 MCH 28.7 MCHC 32.5 RDW 19.4 H Plt Count 99 L Neut % (Auto) 81.0 H Lymph % (Auto) 9.3 L Potter % (Auto) 7.5 Eos % (Auto) 2.0 Baso % (Auto) 0.2 Neut # (Auto) 6500 Lymph # (Auto) 700 L Potter # (Auto) 600 Eos # (Auto) 200 Baso # (Auto) 0 PT 33.8 H D 33.1 H INR 2.9 H 2.9 H Sodium 135 L Potassium 3.8 Chloride 97 L Carbon Dioxide 33 H BUN 33 H Creatinine 1.31 H Estimated GFR 56 L BUN/Creatinine Ratio 25.2 H Glucose 81 Calcium 9.8 Total Bilirubin 1.3 AST 55 ALT 41 Alkaline Phosphatase 114 Total Protein 6.7 Albumin 3.4 L Globulin 3.3 Albumin/Globulin Ratio 1.0 [facility] Medical History Alcohol abuse GERD (gastroesophageal reflux disease) Mixed hyperlipidemia Essential hypertension Congestive heart failure Hypothyroidism Depression Venous stasis Esophageal ulceration Surgical History Status post appendectomy Family History Other Congestive heart failure Social History household members: spouse Smoking Status: Never smoker alcohol intake: never Assessment & Plan Assessment & Plan narrative: new onset back pain. I suspect this is all secondary to not moving. Main issue for him. I do not think it is the main issue for us. Do not need x-rays right now but will continue to follow will see how it goes with increasingly mobilization hopefully this resolves issue. Congestive heart failure. Continuing to improve. Seems to be doing well. Without issues. Will continue Lasix. Re-evaluate from there. No other changes. Bilateral leg wounds with cellulitis. Continue dressing changes. As per [facility] which will be follow-up. Probably will discontinue IV antibiotics within this week. And will hope that no further antibiotics will be needed. BPH with indwelling Page. One more day Page and will discontinue tomorrow. Atrial fibrillation. Actually rate is well-controlled. We seemed to be doing well. Will continue metoprolol no digoxin due to slow heart rate in the past. Without other changes. Delirium. Improved. Still have no definitive issue. About what happened. Has not received any Valium. May start reducing his Seroquel and see how he does. Make some decisions over the next couple of days. Type 2 diabetes controlled Severe sepsis resolved DVT prophylaxis on Coumadin GI prophylaxis continue pantoprazole Hypothyroidism stable Hypokalemia resolved but will rechecked tomorrow Anemia of chronic disease stable Disposition discussed extensively with social service. Patient is beginning to mobilize and certainly is improving. Certainly goal is to getting back home and I think that goal is possible but will not be able to go straight home. Will have to see what happens over the next few days they will continue to work on it. Will continue physical therapy and proceed from there. Quality VTE Deep Vein Thrombosis/Pulmonary Embolism Present on Admission: No
[2023-10-06] MEDS: QUETIAPINE 25 MG TABLET 50 MG PO ×2 (09:32→20:49)
[2023-10-06] MEDS: METOPROLOL ER 25 MG TABLET 37.5 MG PO ×2 (09:32→20:49)
[2023-10-06] MEDS: ACETAMINOPHEN 325 MG TABLET 650 MG PO ×2 (09:32→20:50)
[2023-10-06] MEDS: POTASSIUM CHLORIDE 20 MEQ/15 ML UDC 40 MEQ PO (09:33)
[2023-10-06] MEDS: FUROSEMIDE 40 MG/4 ML VIAL IV (09:33)
[2023-10-06] MEDS: TAMSULOSIN 0.4 MG CAPSULE 0.8 MG PO (09:33)
[2023-10-06] MEDS: PANTOPRAZOLE DR 40 MG TABLET PO (09:33)
[2023-10-06] MEDS: SODIUM CHLORIDE 0.9% FLUSH 10 ML IV ×2 (09:33→20:51)
[2023-10-06] MEDS: LIDOCAINE 5% PATCH 1 EACH TOP (09:34)
--- NOTE | 2023-10-06 10:41 | PT.IPTN ---
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 (09/28/23) Acute respiratory failure with hypoxia (09/28/23) Acute respiratory failure with hypercapnia (09/28/23) Cellulitis of right lower limb (09/28/23) Cellulitis of left lower limb (09/28/23) Non-pressure chronic ulcer of other part of left foot with unspecified severity (09/28/23) Non-pressure chronic ulcer of unspecified part of unspecified lower leg with unspecified severity (09/28/23) Non-pressure chronic ulcer of unspecified part of right lower leg with unspecified severity (09/28/23) Non-pressure chronic ulcer of unspecified part of left lower leg limited to breakdown of skin (09/28/23) Acute kidney failure, unspecified (09/28/23) Chronic kidney disease, unspecified (09/28/23) Dyspnea, unspecified (09/28/23) Weakness (09/28/23) Abnormal coagulation profile (09/28/23) Physical Therapy Treatment Note M2 PT-IP Current Condition Start: 10/01/23 16:57 Freq: NEEDED Status: Active Protocol: Document 10/05/23 14:37 AW (Rec: 10/05/23 17:08 AW [id number]) Physical Therapy Current Condition Current Condition Evaluation Date 10/05/23 Treatment Diagnosis delirium, CHF exacerbation; impaired mobility and gait Onset Date 09/28/23 M3 PT-IP Subjective Start: 10/01/23 16:57 Freq: NEEDED Status: Active Protocol: Document 10/06/23 12:14 TS (Rec: 10/06/23 12:43 TS [id number]) Subjective Physical Therapy Visit Type Type Treatment Note Visit Start Time 10:41 Visit Stop Time 11:11 Total Visit Minutes 30 Notes Co-treat with OT. Vitals: BP 122/69, HR 103, Spo2 94% on 2L at rest, Spo2 with mobility low to mid 80's on 2L. Number of CUTTER ALUMINUM SHEET Visits 1 Physical Therapy Visit Comments Patient Comments Pt found resting in bed, lethargic and difficult to awaken, after some motivation pt agreeable to PT. Therapy Pain Assessment Pain When Pain Assessed During Mobility Pain Present Pain Present Unable to Respond FLACC Pain Scale Face Occasional grimace/frown Legs Uneasy, restless, tense Activity Squirming,shifting Cry Moans/whimpers/complains Consolability Reassurable with touch FLACC Total 5 M4 PT-IP Mobility and Gait Start: 10/01/23 16:57 Freq: NEEDED Status: Active Protocol: Document 10/06/23 12:14 TS (Rec: 10/06/23 12:43 TS [id number]) PT-Bed Mobility Assessment Rolling Level of Assist Moderate Assistance,2 Person Assistance Supine to Sit Supine to Sit Moderate Assistance,2 Person Assistance,Head of Bed Elevated,Bedrails Sit to Supine Sit to Supine Moderate Assistance,2 Person Assistance,Bedrails Scooting Scooting to Edge of Bed Moderate Assistance PT-Transfer Assessment Sit to and From Stand Sit to and from Stand Moderate Assistance,2 Person Assistance Equipment Transfer Assistive Device Bed Rail,Gait Belt,Front Wheeled Walker Transfers Transfer Destination Chair Transfer Technique Stand Step Pivot Transfer Ability Level of Assist Moderate Assistance,2 Person Assistance,Use of Upper Extremities Comments Mobility Comments Supine to sit ModA x2 for uprighting trunk, cues provided for BUE support and handrail assist. Pt sat EOB intially Adriel, progressed to CGA/SBA with use of rail support. Coban was wrapped around B feet for gripping on floor, socks not used due to wounds. Sit to stand with FWW ModA x2, pt had some retroleaning in standing, improved with cues for weight forward. Stand step pivot to chair ModA x2, pt required tactile cues for FWW management and step sequencing . Pt sat in chair, Spo2 desats to low 80's, pt cued for deep breaths through NC, Spo2 improved to low 90's. Pt was left in chair with OT tending to needs. Gait Assessment Gait Gait Assistance Required: Moderate Assistance,2 Person Assist Distance (Feet) 2 Assistive Devices Assistive Device Gait Belt,Front Wheeled Walker Orthotic/Prosthetic Devices or Brace: No Gait Deviations General Gait Pattern Antalgic,Decreased Stride Length,Decreased Feet Clearance,Flexed Trunk,Step-to Gait,Wide Based Gait Factors Limiting Gait Function Factors Limiting Gait Function Decreased Activity Tolerance, Decreased Sensation,Decreased Strength,Difficulty Following Directions,Limited Range of Motion,Pain,Poor Balance,Poor Safety Awareness,Respiratory Distress Comments Gait Comments See mobility comments. PT-Balance Assessment Sitting Balance and Reactions Static Sitting Balance Ability Fair Dynamic Sitting Balance Ability Poor Standing Balance and Reactions Static Standing Balance Ability Fair Dynamic Standing Balance Ability Poor Device Used FWW M5 PT-IP Objective Assessments Start: 10/01/23 16:57 Freq: NEEDED Status: Active Protocol: Document 10/05/23 14:37 AW (Rec: 10/05/23 17:23 AW [id number]) Orientation Orientation/Cognition Level of Alertness Confusional State Orientation Name,Month Strength Lower Extremity Strength Assessment Bilaterally Impaired Hip 3+/5 Knee 4-/5 Ankle 4-/5 Sensation Assessment Comments Sensation Comments Difficult to assess secondary to wounds M6 PT-IP Treatment Start: 10/01/23 16:57 Freq: NEEDED Status: Active Protocol: Document 10/05/23 14:37 AW (Rec: 10/05/23 17:23 AW [id number]) Physical Therapy Treatment Other Treatments Other Treatment Performed Seated balance activities on edge of bed and on commode. M7 PT-IP Assessment and Plan Start: 10/01/23 16:57 Freq: NEEDED Status: Active Protocol: Document 10/06/23 12:14 TS (Rec: 10/06/23 12:43 TS [id number]) PT Summary Assessment and Plan Potential Rehabilitation Potential Fair Summary Impairments Pain,ROM,Strength,Balance, Sensation,Cognition,Bed Mobility,Transfers,Gait, Activity Tolerance Progress Towards Goals Slow Progress due to Pain,Slow Progress due to Medical Issues,Slow Progress due to Activity Tolerance Assessment Summary Jay is making slow progress with his mobility. He continues to require ModA x2 for bed mobility and for sit to stands with FWW. He performed stand step pivot to chair ModA x2 with tactile cues for FWW management. Pt is slow to process commands but does follow cues well. Spo2 desats with mobility to low 80 's, pt requires cues to breathe through NC. PT continues to recommend SNF to progress strength, activity tolerance and functional mobility. Goals Bed Mobility Goal Minimal Assistance Transfer Goal Contact Guard Assistance,Front Wheeled Walker Gait Goal Contact Guard Assistance,Front Wheel Walker Gait Distance 50 Other Goals - improve gait to 150' using 4WW with SBA Days to Meet Goals 10 Frequency of Treatment Frequency Of Treatment Once a Day Treatment Plan Physical Therapy Treatment Plan Bed Mobility Training,Transfer Training,Gait Training, Therapeutic Exercise,Balance Retraining,Discharge Planning, Hot or Cold Pack,Neuromuscular Re-ed Other Recommendations and Next Treatment transfer training; gait with Focus FWW and chair follow as tolerated Recommendations To Nursing Amount of Assist Needed 2 Person Assist Discharge Recommendations PT Discharge Recommendations SNF Rehab Transportation Needs at Discharge Wheelchair/Cabulance
--- NOTE | 2023-10-06 11:21 | OT.IP.TRT ---
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 (09/28/23) Acute respiratory failure with hypoxia (09/28/23) Acute respiratory failure with hypercapnia (09/28/23) Cellulitis of right lower limb (09/28/23) Cellulitis of left lower limb (09/28/23) Non-pressure chronic ulcer of other part of left foot with unspecified severity (09/28/23) Non-pressure chronic ulcer of unspecified part of unspecified lower leg with unspecified severity (09/28/23) Non-pressure chronic ulcer of unspecified part of right lower leg with unspecified severity (09/28/23) Non-pressure chronic ulcer of unspecified part of left lower leg limited to breakdown of skin (09/28/23) Acute kidney failure, unspecified (09/28/23) Chronic kidney disease, unspecified (09/28/23) Dyspnea, unspecified (09/28/23) Weakness (09/28/23) Abnormal coagulation profile (09/28/23) Occupational Therapy Treatment Note M2 OT-IP Current Condition Start: 10/05/23 08:50 Freq: Status: Active Protocol: Document 10/05/23 16:40 ARNEL (Rec: 10/05/23 17:33 ARNEL [id number]) Occupational Therapy Current Condition Current Condition Evaluation Date 10/05/23 Treatment Diagnosis weakness, fatigue, SOB Diagnosis Onset Date 09/28/23 M3 OT- IP Subjective and Pain Start: 10/05/23 08:50 Freq: Status: Active Protocol: Document 10/06/23 12:15 [facility] (Rec: 10/06/23 12:30 [facility] [id number]) OT- Subjective Occupational Therapy Visit Type Type Treatment Note Visit Start Time 10:55 Visit Stop Time 11:21 Total Visit Minutes 26 Occupational Therapy Visit Comments Patient Comments Pt very drowsy but agreeable to get up to the recliner. Patient/Caregiver Goals To get better. OT Pain Assessment Pain When Pain Assessed At Rest Pain Present Pain Present Pain Reported Location Back Pain Behaviors Calling Out,[place]incing M4 OT- IP ADL's Start: 10/05/23 08:50 Freq: Status: Active Protocol: Document 10/06/23 12:15 [facility] (Rec: 10/06/23 12:30 [facility] [id number]) OT [id number] Comments OT Self-Feeding Comments Pt needing encouragement to drink his Ensure and eat. Pt will need assist with set-up. Spoke to nursing aid and suggested if pt not eating lunch to try to feed him to help initiate pt to eat. OT ADL-Grooming General Evaluation Grooming Ability Standby Assistance Comments OT Grooming Comments Pt able to wash his face and brush his hair with increased time while in bed and in the recliner. OT ADL-Oral Care Comments Oral Care Comments Pt not wanting to do at this time. OT ADL-Dressing General Eval Lower Body Dressing Ability Total Assistance Comments OT Dressing Comments Nursing able to put coban on his feet to assist with traction when up on his feet. Pt has blister on the left big toe and wrapping on the right . OT ADL-Toileting General Evaluation Toileting Ability Total Assistance Areas Needing Assistance Empty Catheter or Colostomy, Manage Clothing Comments OT Toileting Comments Page in place. OT ADL-Bathing Comments OT Bathing Comments Sponge bath more appropriate at this time. M5 OT- IP IADL's Start: 10/05/23 08:50 Freq: Status: Active Protocol: Document 10/05/23 16:40 ARNEL (Rec: 10/05/23 17:33 ARNEL [id number]) OT-Instrumental Activities of Daily Living Deficits IADL Deficits Identified Deficits Home Safety Awareness Awareness of Need for Assistance at Home Decreased Awareness Medication Management Medication Management Caregiver Administers Medication Management Comments pt was a poor historian at time of eval. per chart review , pt's spouse has been providing assist with this for an extended period of time Money Management Money Management Caregiver Provides Assistance Money Management Comments pt was a poor historian at time of eval. per chart review , pt's spouse has been providing assist with this for an extended period of time Meal Preparation Meal Preparation Caregiver Provides Assist Meal Preparation Comments pt was a poor historian at time of eval. per chart review , pt's spouse has been providing assist with this for an extended period of time Coppersmith Helper Coppersmith Helper Caregiver Provides Assist Coppersmith Helper Comments pt was a poor historian at time of eval. per chart review , pt's spouse has been providing assist with this for an extended period of time Driving Driving Caregiver Provides Assist Driving Comments pt was a poor historian at time of eval. per chart review , pt's spouse has been providing assist with this for an extended period of time M6 OT- IP Functional Cognition Start: 10/05/23 08:50 Freq: Status: Active Protocol: Document 10/06/23 12:15 [facility] (Rec: 10/06/23 12:30 [facility] [id number]) Cognitive Factors Limiting Selfcare Function Cognitive Comments Cognitive Assessment Comments Pt needing increased time to respond to cues as pt is very hard of hearing. Pt needing initial encouragement to get up. OT- Vision and Hearing OT- Vision Assessment Visual Acuity Glasses All The Time Vision Assessment Comments Pt uses an amplifier for his hearing. M7 OT- IP Mobility and Balance Start: 10/05/23 08:50 Freq: Status: Active Protocol: Document 10/06/23 12:15 [facility] (Rec: 10/06/23 12:30 [facility] [id number]) OT- Bed Mobility Assessment Supine to Sit Supine to Sit Assist Moderate Assistance,2 Person Assistance,Head of Bed Elevated,Bedrails Scooting Scooting to Edge of Bed Moderate Assistance,2 Person Assistance OT-Transfer Assessment Sit to and From Stand Sit to and from Stand Moderate Assistance,2 Person Assistance Transfers Transfer Ability Moderate Assistance,2 Person Assistance Technique Transfer Destination Bed,Bedside Commode Transfer Technique Stand Step Pivot Devices Transfer Assistive Devices Gait Belt,Front Wheeled Walker Comments Mobility Comments MODA X2 assist to his legs and to get his trunk upright. MODA X 2 to stand to the FWW and transfer to the recliner. OT- Balance Assessment Sitting Balance and Reactions Static Sitting Balance Ability Fair Dynamic Sitting Balance Ability Poor Standing Balance and Reactions Static Standing Balance Ability Poor Dynamic Standing Balance Ability Poor M8 OT- IP Objective Assessments Start: 10/05/23 08:50 Freq: Status: Active Protocol: Document 10/05/23 16:40 ARNEL (Rec: 10/05/23 17:33 ROSHANOHNAYA [id number]) OT Gross Range of Motion Upper Extremity Range of Motion Assessment Within Functional Limits ROM Impairments Pt has decreased ROM equal B' ly in shoulders, otherwise B UEs WFL. OT Strength Upper Extremity Strength Shoulder 3+ R, 3+ L Elbow 4 R, 4- L Hand 4 R, 4- L Hand Ceramic Restorer Strength Hand Dominance Right Comments Strength Comments Pt required increased vcs and repetition to perform MMT OT-Muscle Tone Assessment Muscle Tone WNL Yes M9 OT- IP Assessment and Plan Start: 10/05/23 08:50 Freq: Status: Active Protocol: Document 10/06/23 12:15 [facility] (Rec: 10/06/23 12:30 [facility] [id number]) OT Summary Assessment and Plan Potential Rehabilitation Potential Fair Analytic Complexity at Evaluation Moderate Summary OT Impairments Pain,Strength,Balance, Functional Mobility,Grooming, Dressing,Toileting,Bathing, Toilet Transfers,Shower Transfers,Activity Tolerance Progress Towards Goals Slow Progress due to Pain,Slow Progress due to Medical Issues,Slow Progress due to Activity Tolerance Assessment Summary Pt still needing two person assist for transfers. Pt on 1- 2L O2 and from 84-98%. Pt needing increased time to follow commands but cooperative and pleasant. Pt will benefit from skilled rehab to maximize his level of independence for his needs. Goals Self-Feeding Goal Independent Grooming Goal Standby Assistance Dressing Goal Minimal Assistance Toileting Goal Standby Assistance Bathing Goal Standby Assistance Toilet Transfer Goal Standby Assistance Shower Transfer Goal Standby Assistance Days to Meet Goals 13 Frequency of Treatment Frequency Of Treatment Once a Day Treatment Plan OT Treatment Plan ADL Training,Functional Mobility,Therapeutic Exercises ,Patient/Family Education, Discharge Planning Discharge Recommendations OT Discharge Recommendations SNF Rehab Transportation Needs at Discharge Wheelchair/Cabulance
--- NOTE | 2023-10-06 13:25 | CM.DPNOTE ---
Addendum entered by DAVIE Pham 10/06/23 13:28: ADD: Need PASRR still. Will patient discharge on Seroquel (?) Original Note: FRANNIE Queen [facility] has accepted patient and starting the authorization through [facility] today. BRIGETTE
[2023-10-06] MEDS: NYSTATIN POWDER 15GM 1 APPLIC TOP (15:14)
[2023-10-06] MEDS: HYDROCORTISONE 1% CREAM 28 GM 1 APPLIC TOP ×2 (15:14→21:05)
[2023-10-06] MEDS: WARFARIN 2.5 MG TABLET PO (17:47)
--- NOTE | 2023-10-06 17:50 | DIET.PN1 ---
Dietary Progress Note Assessment: Inconsistent PO but kidney values have improved. Will send Trey x1 per day for enhanced wound healing. GFR: 56 Cr: 1.31H Ht: 177.8 cm Wt: 114.5 kg BMI: 37.5 Last BM: 10/06/23 (10/06/23 00:12) MNA: 10 Ej Score: 15 Diet: 10/01/23 Breakfast Carbohydrate Consistent Diet Diet Modifications: Carbohydrate level: Medium (3 CHO) Reflex DM orders: No Food Texture: Level 7 - Regular Liquid Consistency: Level 0 - Thin Nutrition Percent Meal Consumed 100% 10/06/23 12:59 Percent Meal Consumed 0% 10/06/23 09:00 Percent Meal Consumed 0% 10/05/23 20:58 Percent Meal Consumed 100% 10/05/23 12:46 Percent Meal Consumed didnt want breakfast drank an 10/05/23 09:23 ensure Electronically Signed by: Татьяна Brown 10/06/23 17:50 Clinical Dietitian [address] [address]
[2023-10-06] MEDS: cefTRIAXone 2,000 MG in SODIUM CHLORIDE 0.9% 100 ML 200 MG IV (22:55)
[2023-10-07] VITALS (7 sets, daily range): BP systolic 113–145; BP diastolic 59–70; PULSE 67–95; RESP 16–32; TEMP 36.3; O2SAT 94–97
[2023-10-07] MEDS: OXYCODONE IR 5 MG TABLET PO (02:44)
[2023-10-07] MEDS: ACETAMINOPHEN 325 MG TABLET 650 MG PO (02:45)
[2023-10-07 05:13] LABS: Add Manual Diff / Slide Review NO; Basophils Absolute Auto 0 /uL (0-100); Basophils Percent Auto 0.2 % (0-2); Eosinophils Absolute Auto 200 /uL (0-450); Eosinophils Percent Auto 3.1 % (2-4); Hematocrit 29.9 % (41-53); Hemoglobin 9.9 g/dL (13.5-17.5); Lymphocytes Absolute Auto 900 /uL (1100-4500); Lymphocytes Percent Auto 10.9 % (25-40); Mean Corpuscular HGB Conc 33.2 % (30-36); Mean Corpuscular Hemoglobin 29.1 PG (26-34); Mean Corpuscular Volume 87.7 fL (80-100); Monocytes Absolute Auto 500 /uL (0-900); Monocytes Percent Auto 5.8 % (3-14); Neutrophils Absolute Auto 6300 /uL (1500-7000); Platelet Count 119 X10^3/uL (150-400); Red Blood Cell Count 3.41 X10^6/uL (4.5-5.9); Red Cell Distribution Width 19.2 % (11.6-14.8); White Blood Cell Count 7.9 X10^3/uL (4.5-11.0)
[2023-10-07 05:15] LABS: INR 3.1 (0.9-1.3); Prothrombin Time 35.9 SECONDS (9.4-12.5)
[2023-10-07] MEDS: LEVOTHYROXINE 137 MCG TABLET PO (05:30)
[2023-10-07 05:32] LABS: Alanine Aminotransferase 37 IU/L (<50); Albumin 3.2 g/dL (3.5-5.0); Alkaline Phosphatase 104 U/L (38-126); Aspartate Aminotransferase 38 IU/L (17-59); BUN Creatinine Ratio 28.3 (6-22); Blood Urea Nitrogen 41 mg/dL (9-20); Carbon Dioxide 33 mmol/L (22-32); Chloride 94 mmol/L (98-107); Estimated Glomerular Filt Rate 49 mL/min (>60); Globulin 3.2 g/dL (1.7-4.1); Glucose 107 mg/dL (80-110); HEMOLYSIS < 15 (0-50); Potassium 3.9 mmol/L (3.4-5.1); Sodium 132 mmol/L (137-145); Total Protein 6.4 g/dL (6.3-8.2)
[2023-10-07] MEDS: POTASSIUM CHLORIDE 20 MEQ/15 ML UDC 40 MEQ PO (08:43)
[2023-10-07] MEDS: LIDOCAINE 5% PATCH 1 EACH TOP (08:44)
[2023-10-07] MEDS: FUROSEMIDE 40 MG/4 ML VIAL IV (08:44)
[2023-10-07] MEDS: METOPROLOL ER 25 MG TABLET 37.5 MG PO (08:44)
[2023-10-07] MEDS: PANTOPRAZOLE DR 40 MG TABLET PO (08:45)
[2023-10-07] MEDS: TAMSULOSIN 0.4 MG CAPSULE 0.8 MG PO (08:45)
[2023-10-07] MEDS: SODIUM CHLORIDE 0.9% FLUSH 10 ML IV (08:45)
[2023-10-07] MEDS: QUETIAPINE 25 MG TABLET 50 MG PO (08:45)
--- NOTE | 2023-10-07 11:09 | CM.DPNOTE ---
Addendum entered by Joanna Chris, FOOD AND DRUG RESEARCH SCIENTIST 10/07/23 16:08: ADD: Discussed discharge plan with spouse Avani P [phone], Avani agreeable to plan. Asked about [employer] application that social problems specialist Alyssa Hodgson had helped complete (?) Avani says she never took it home so it may still be with patient's things in his room. Addendum entered by Joanna Chris, FOOD AND DRUG RESEARCH SCIENTIST 10/07/23 15:46: ADD: DC Summary, signed med list, completed SNF orders and completed and signed PASRR faxed to [facility]. Original Note: DC Note [facility] has accepted patient for admission today, [facility] has authorized SNF stay. Dr Hoover updated. Discussed plan with patient who admits he would rather return home. Explained to patient that return home at this time is not a viable option as patient's care needs far outweigh spouse's abilities. Patient states understanding. Wheelchair van arranged for order picker at 1500. Orders expected soon from Dr Hoover. Attempted call to spouse Avani, no answer. KANDACE Camarena says patient is at work, [employer], today. Placed call to daughter Neva, updated on plan. Neva will attempt contact with spouse, explains spouse can be difficult to get a hold of. Provided contact info for this FOOD AND DRUG RESEARCH SCIENTIST in order for spouse to call back with any questions or concerns about discharge plan. PASRR completed for [facility] Dis[facility] and will require signature. RN report number P# [phone] Plan: Anticipate discharge to [facility] today via wheelchair van, p/u at 1500. Awaiting discharge orders. BRIGETTE
--- NOTE | 2023-10-07 11:45 | OT.IP.TRT ---
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 (09/28/23) Acute respiratory failure with hypoxia (09/28/23) Acute respiratory failure with hypercapnia (09/28/23) Cellulitis of right lower limb (09/28/23) Cellulitis of left lower limb (09/28/23) Non-pressure chronic ulcer of other part of left foot with unspecified severity (09/28/23) Non-pressure chronic ulcer of unspecified part of unspecified lower leg with unspecified severity (09/28/23) Non-pressure chronic ulcer of unspecified part of right lower leg with unspecified severity (09/28/23) Non-pressure chronic ulcer of unspecified part of left lower leg limited to breakdown of skin (09/28/23) Acute kidney failure, unspecified (09/28/23) Chronic kidney disease, unspecified (09/28/23) Dyspnea, unspecified (09/28/23) Weakness (09/28/23) Abnormal coagulation profile (09/28/23) Occupational Therapy Treatment Note M2 OT-IP Current Condition Start: 10/05/23 08:50 Freq: Status: Active Protocol: Document 10/05/23 16:40 ARNEL (Rec: 10/05/23 17:33 ARNEL [id number]) Occupational Therapy Current Condition Current Condition Evaluation Date 10/05/23 Treatment Diagnosis weakness, fatigue, SOB Diagnosis Onset Date 09/28/23 M3 OT- IP Subjective and Pain Start: 10/05/23 08:50 Freq: Status: Active Protocol: Document 10/07/23 12:40 [facility] (Rec: 10/07/23 12:59 [facility] [id number]) OT- Subjective Occupational Therapy Visit Type Type Treatment Note Visit Start Time 11:32 Visit Stop Time 11:45 Total Visit Minutes 13 Occupational Therapy Visit Comments Patient Comments Pt needing loads of encouragement and then eventually agreed to get up. Pt seem to respond better to deeper voices and use of white board for communication. Patient/Caregiver Goals TO go home. OT Pain Assessment Pain When Pain Assessed During Mobility Pain Present Pain Present Pain Reported M4 OT- IP ADL's Start: 10/05/23 08:50 Freq: Status: Active Protocol: Document 10/07/23 12:40 [facility] (Rec: 10/07/23 12:59 [facility] [id number]) OT UTP-Phne-Alrruli Comments OT Self-Feeding Comments Noted pt coughing after drinking water. Nursing present and observed him coughing and said he had no issues during breakfast. OT ADL-Grooming General Evaluation Grooming Ability Standby Assistance Comments OT Grooming Comments Able to do after set-up while seated on the recliner. OT ADL-Oral Care Comments Oral Care Comments Pt not wanting to do at this time. OT ADL-Dressing General Eval Lower Body Dressing Ability Total Assistance Comments OT Dressing Comments Assist to help thread feet into the pull up brief and assist to help pull up over his hips. OT ADL-Bathing Comments OT Bathing Comments Not performed. M5 OT- IP IADL's Start: 10/05/23 08:50 Freq: Status: Active Protocol: Document 10/05/23 16:40 ARNEL (Rec: 10/05/23 17:33 ROSHANIANAYA [id number]) OT-Instrumental Activities of Daily Living Deficits IADL Deficits Identified Deficits Home Safety Awareness Awareness of Need for Assistance at Home Decreased Awareness Medication Management Medication Management Caregiver Administers Medication Management Comments pt was a poor historian at time of eval. per chart review , pt's spouse has been providing assist with this for an extended period of time Money Management Money Management Caregiver Provides Assistance Money Management Comments pt was a poor historian at time of eval. per chart review , pt's spouse has been providing assist with this for an extended period of time Meal Preparation Meal Preparation Caregiver Provides Assist Meal Preparation Comments pt was a poor historian at time of eval. per chart review , pt's spouse has been providing assist with this for an extended period of time Leak Detection Engineer Leak Detection Engineer Caregiver Provides Assist Leak Detection Engineer Comments pt was a poor historian at time of eval. per chart review , pt's spouse has been providing assist with this for an extended period of time Driving Driving Caregiver Provides Assist Driving Comments pt was a poor historian at time of eval. per chart review , pt's spouse has been providing assist with this for an extended period of time M6 OT- IP Functional Cognition Start: 10/05/23 08:50 Freq: Status: Active Protocol: Document 10/07/23 12:40 [facility] (Rec: 10/07/23 12:59 [facility] [id number]) Cognitive Factors Limiting Selfcare Function Cognitive Comments Cognitive Assessment Comments Pt still needing some encouragement to initiate. Pt is very hard of hearing and best to use write board so pt able to understand better. OT- Vision and Hearing OT- Vision Assessment Visual Acuity Glasses All The Time Vision Assessment Comments Pt uses an amplifier for his hearing. M7 OT- IP Mobility and Balance Start: 10/05/23 08:50 Freq: Status: Active Protocol: Document 10/07/23 12:40 [facility] (Rec: 10/07/23 12:59 [facility] [id number]) OT- Bed Mobility Assessment Supine to Sit Supine to Sit Assist Minimal Assistance,Head of Bed Elevated,Bedrails OT-Transfer Assessment Sit to and From Stand Sit to and from Stand Moderate Assistance,1 Person Assistance,2 Person Assistance Transfers Transfer Ability Minimal Assistance,1 Person Assistance Technique Transfer Destination Bed,Chair Transfer Technique Stand Step Pivot Devices Transfer Assistive Devices Gait Belt,Front Wheeled Walker Comments Mobility Comments MODA 1-2 to stand pending on level of surface standing up from . Pt able to walk with RECREATION AIDE one person assist with fww and 4ww. OT- Balance Assessment Sitting Balance and Reactions Static Sitting Balance Ability Good Dynamic Sitting Balance Ability Fair Standing Balance and Reactions Static Standing Balance Ability Fair Dynamic Standing Balance Ability Poor M8 OT- IP Objective Assessments Start: 10/05/23 08:50 Freq: Status: Active Protocol: Document 10/05/23 16:40 ARNEL (Rec: 10/05/23 17:33 ARNEL [id number]) OT Gross Range of Motion Upper Extremity Range of Motion Assessment Within Functional Limits ROM Impairments Pt has decreased ROM equal B' ly in shoulders, otherwise B UEs WFL. OT Strength Upper Extremity Strength Shoulder 3+ R, 3+ L Elbow 4 R, 4- L Hand 4 R, 4- L Hand Mine Engineer Strength Hand Dominance Right Comments Strength Comments Pt required increased vcs and repetition to perform MMT OT-Muscle Tone Assessment Muscle Tone WNL Yes M9 OT- IP Assessment and Plan Start: 10/05/23 08:50 Freq: Status: Active Protocol: Document 10/07/23 12:40 [facility] (Rec: 10/07/23 12:59 [facility] [id number]) OT Summary Assessment and Plan Potential Rehabilitation Potential Good Analytic Complexity at Evaluation Moderate Summary OT Impairments Pain,Strength,Balance, Functional Mobility,Grooming, Dressing,Toileting,Bathing, Toilet Transfers,Shower Transfers,Activity Tolerance Progress Towards Goals Progressing Toward Goals Assessment Summary Pt on RA and O2 level mostly above 90%. Pt great improvement for mobilty needs today and more actively participating. Pt looking to go to skilled rehab when medically stable. Goals Self-Feeding Goal Independent Grooming Goal Independent Dressing Goal Standby Assistance Toileting Goal Independent Bathing Goal Standby Assistance Toilet Transfer Goal Independent Shower Transfer Goal Standby Assistance Days to Meet Goals 12 Frequency of Treatment Frequency Of Treatment Once a Day Treatment Plan OT Treatment Plan ADL Training,Functional Mobility,Therapeutic Exercises ,Patient/Family Education, Discharge Planning Discharge Recommendations OT Discharge Recommendations SNF Rehab Transportation Needs at Discharge Wheelchair/Cabulance
--- NOTE | 2023-10-07 11:45 | PT.IPTN ---
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 (09/28/23) Acute respiratory failure with hypoxia (09/28/23) Acute respiratory failure with hypercapnia (09/28/23) Cellulitis of right lower limb (09/28/23) Cellulitis of left lower limb (09/28/23) Non-pressure chronic ulcer of other part of left foot with unspecified severity (09/28/23) Non-pressure chronic ulcer of unspecified part of unspecified lower leg with unspecified severity (09/28/23) Non-pressure chronic ulcer of unspecified part of right lower leg with unspecified severity (09/28/23) Non-pressure chronic ulcer of unspecified part of left lower leg limited to breakdown of skin (09/28/23) Acute kidney failure, unspecified (09/28/23) Chronic kidney disease, unspecified (09/28/23) Dyspnea, unspecified (09/28/23) Weakness (09/28/23) Abnormal coagulation profile (09/28/23) Physical Therapy Treatment Note M2 PT-IP Current Condition Start: 10/01/23 16:57 Freq: NEEDED Status: Active Protocol: Document 10/05/23 14:37 AW (Rec: 10/05/23 17:08 AW [id number]) Physical Therapy Current Condition Current Condition Evaluation Date 10/05/23 Treatment Diagnosis delirium, CHF exacerbation; impaired mobility and gait Onset Date 09/28/23 M3 PT-IP Subjective Start: 10/01/23 16:57 Freq: NEEDED Status: Active Protocol: Document 10/07/23 12:49 TS (Rec: 10/07/23 13:03 TS [id number]) Subjective Physical Therapy Visit Type Type Treatment Note Visit Start Time 11:45 Visit Stop Time 12:15 Total Visit Minutes 30 Notes Split treatment with OT. Number of WEIGHER AND GRADER Visits 2 Physical Therapy Visit Comments Patient Comments Pt found resting in bed, is concerned about continued constipation, nurse reports he had one yesterday. Pt required some motivation to participate therapy. Therapy Pain Assessment Pain When Pain Assessed During Mobility Pain Present Pain Present Unable to Respond M4 PT-IP Mobility and Gait Start: 10/01/23 16:57 Freq: NEEDED Status: Active Protocol: Document 10/07/23 12:49 TS (Rec: 10/07/23 13:03 TS [id number]) PT-Bed Mobility Assessment Supine to Sit Supine to Sit Minimal Assistance,1 Person Assistance Scooting Scooting to Edge of Bed Minimal Assistance PT-Transfer Assessment Sit to and From Stand Sit to and from Stand Minimal Assistance,Moderate Assistance,1 Person Assistance ,2 Person Assistance,Use of Upper Extremities Equipment Transfer Assistive Device Gait Belt,Front Wheeled Walker Orthotic/Prosthetic Devices or Brace: No Transfers Transfer Destination Chair Transfer Technique Stand Step Pivot Transfer Ability Level of Assist Minimal Assistance,1 Person Assistance Comments Mobility Comments Supine to sit Adriel x1 for uprighting trunk, pt required max cues for use of handrails. He scooted to EOB Adriel and cues for BUE support pushing to EOB. Sit to stand with FWW Adriel from elevated bed. He performed stand step pivot to chair Adriel for FWW management. Pt had some SOB, Spo2 in low 90's to high 80's, pt cued for PLB. He performed sit to stand from chair ModA x2 with 4WW. He ambulated in room with 4WW ~15' with unsteady gait. Pt was left back in chair, all needs met. Gait Assessment Gait Gait Assistance Required: Minimum Assistance,1 Person Assist Distance (Feet) 15 Assistive Devices Assistive Device Gait Belt,Front Wheeled Walker Orthotic/Prosthetic Devices or Brace: No Gait Deviations General Gait Pattern Antalgic,Decreased Stride Length,Decreased Feet Clearance,Flexed Trunk,Step-to Gait,Wide Based Gait Factors Limiting Gait Function Factors Limiting Gait Function Decreased Activity Tolerance, Decreased Sensation,Decreased Strength,Difficulty Following Directions,Limited Range of Motion,Pain,Poor Balance,Poor Safety Awareness,Respiratory Distress Comments Gait Comments See mobility comments. PT-Balance Assessment Sitting Balance and Reactions Static Sitting Balance Ability Fair Dynamic Sitting Balance Ability Poor Standing Balance and Reactions Static Standing Balance Ability Poor Dynamic Standing Balance Ability Poor Device Used FWW M5 PT-IP Objective Assessments Start: 10/01/23 16:57 Freq: NEEDED Status: Active Protocol: Document 10/05/23 14:37 AW (Rec: 10/05/23 17:23 AW [id number]) Orientation Orientation/Cognition Level of Alertness Confusional State Orientation Name,Month Strength Lower Extremity Strength Assessment Bilaterally Impaired Hip 3+/5 Knee 4-/5 Ankle 4-/5 Sensation Assessment Comments Sensation Comments Difficult to assess secondary to wounds M6 PT-IP Treatment Start: 10/01/23 16:57 Freq: NEEDED Status: Active Protocol: Document 10/05/23 14:37 AW (Rec: 10/05/23 17:23 AW [id number]) Physical Therapy Treatment Other Treatments Other Treatment Performed Seated balance activities on edge of bed and on commode. M7 PT-IP Assessment and Plan Start: 10/01/23 16:57 Freq: NEEDED Status: Active Protocol: Document 10/07/23 12:49 TS (Rec: 10/07/23 13:03 TS [id number]) PT Summary Assessment and Plan Potential Rehabilitation Potential Fair Summary Impairments Pain,ROM,Strength,Balance, Sensation,Cognition,Bed Mobility,Transfers,Gait, Activity Tolerance Progress Towards Goals Slow Progress due to Pain,Slow Progress due to Medical Issues,Slow Progress due to Activity Tolerance Assessment Summary Jay made some progress with his mobility but continues to be limited. He progressed to decreased assist for bed mobility to x1PA, continues to require max cues for sequencing. He performed sit to stand from elevated bed x1 with Adriel x1 and use of FWW. He performed sit to stand from lower surface of chair ModA x2 and use of 4WW. He progressed his gait to ~15' Adriel with use of 4WW. pt is mroeunsteady with 4WW and would benefit from continued use of FWW. PT continues to recommend SNF at this time. Goals Bed Mobility Goal Minimal Assistance Transfer Goal Contact Guard Assistance,Front Wheeled Walker Gait Goal Contact Guard Assistance,Front Wheel Walker Gait Distance 50 Other Goals - improve gait to 150' using 4WW with SBA Days to Meet Goals 10 Frequency of Treatment Frequency Of Treatment Once a Day Treatment Plan Physical Therapy Treatment Plan Bed Mobility Training,Transfer Training,Gait Training, Therapeutic Exercise,Balance Retraining,Discharge Planning, Hot or Cold Pack,Neuromuscular Re-ed Other Recommendations and Next Treatment transfer training; gait with Focus FWW and chair follow as tolerated Recommendations To Nursing Amount of Assist Needed 2 Person Assist Discharge Recommendations PT Discharge Recommendations SNF Rehab Transportation Needs at Discharge Wheelchair/Cabulance
--- NOTE | 2023-10-07 13:34 | P.DS_ITS ---
History of Present Illness History of Present Illness Date Patient Seen: 10/07/23 Time Patient Seen: 13:34 Date of Onset of Symptoms: 09/27/23 Chief complaint: SOB/retaining water/swollen legs Narrative: Please see history and physical dictated by Dr. [place] on 09/29/2023 Discharge Providers Provider Date of admission: 09/28/23 21:02 Discharge Date: 10/07/23 Primary care physician: Zackary Hoover MD Consults: 09/28/23 22:24 Consult to Dietitian, Adult Routine Comment: Reason For Exam: chronic leg wounds Consult to Discharge Planning Routine Comment: Consult to Wound Care Routine Comment: Consulting Provider: [facility] 09/30/23 12:27 Consult to Occupational Therapy Evaluate & Treat Comment: Physician Instructions: Evaluate and treat Consult to Physical Therapy Evaluate & Treat Comment: Physician Instructions: Evaluate and Treat 10/04/23 14:50 Consult to Occupational Therapy Evaluate & Treat Comment: Physician Instructions: Evaluate and treat Consult to Physical Therapy Evaluate & Treat Comment: Physician Instructions: Evaluate and Treat Discharge provider: Zackary Hoover MD Summary Hospital Course Discharge Diagnosis: Sepsis syndrome severe Cellulitis with open wounds bilateral legs Congestive heart failure Acute respiratory failure Atrial fibrillation Delirium Type 2 diabetes Hypothyroidism Hypokalemia Anemia of chronic disease Back pain BPH Hospital Course: Sepsis syndrome. Patient was brought to the hospital secondary to some mental status changes and was found to be hypotensive bradycardic and in renal failure. Patient was hydrated although the concern from congestive heart failure he was not put to protocol. But was given antibiotics and actually things seem to turn around and within 48 hours things were much improved. Patient's antibiotics were ceftriaxone he isn't needs really given Zithromax felt to be possible pneumonia although he was felt in the end to be just cellulitis. He did well with ceftriaxone. He did not have anything develop in cultures and was stable and feeling well on discharge. Cellulitis. Open bilateral wounds. Patient has a history of chronic wounds on his lower extremity which almost always comes when he gets over fluid loaded and develops open wounds. Patient had been having issues getting fluid off for the last week or 2 prior to admission. He began having his usual blisters and presented with erythema and warmth in the lower extremities. He was placed on Rocephin which excellent choice. And worked well. He was aggressively diuresed and overall that went well with his legs looking much better. Still had his open wounds wound Care came and saw him and recommended daily dressing changes with certain dressing please see their note. Patient has had this long-term and will probably need home health and wound care when he returns from rehab. Congestive heart failure. [place] to be his biggest issue. Combination of atrial fibrillation and on presentation bradycardia. Echo was obtained and showed an excellent ejection fraction of 60-65% which was much improved from last year. Patient was aggressively diuresed although he did have some period of slight increase in his creatinine. But that resolved with actual Lasix orally. He otherwise was doing well. He takes torsemide at home. And he was off his O2 breathing well with normal exam and excellent appearing edema in his legs. Will continue on restart his 30 mg of torsemide he takes every day. And we will follow. Acute respiratory failure. Patient required initial BiPAP for part of the night and throughout intermittent for the 1st 2-3 days. It was requiring 2-3 L of O2 which is not something he usually does. X-ray showed patchy infiltrate which was felt to be not infection. And was felt to be more related to his congestive heart failure. Patient continued to diurese throughout his course and will be switched back to his usual outpatient medication. While he was on Rocephin was not clear that he had any issue with pneumonia. He is otherwise done well and will be followed. Atrial fibrillation. Patient's INR was significantly elevated on presentation in his Coumadin was held. He was then restarted on his Coumadin as of day 4. And has been actually adequately controlled since that time. He initially came in bradycardic and was given Digibind because he was on did and atropine. Rates were in the 40 at that time. He has not had any issue with that. And within 12 hours was running in the 130s to 140s. His beta-irlanda was restarted although we held his digoxin. Still had increasing issues with rapid heart rate. Was started on metoprolol. At 25 b.i.d.. Went to 37.5 mg b.i.d. with excellent rate control. He is now INR usual requirement and will be followed as an outpatient will need an INR in probably 3-5 days and will need to be adjusted as per protocol Delirium. Patient was initially clear and had been doing well though somnolent. Over the course of the rest of the week he started getting more and more agitated by Thursday he was agitated and hallucinating. There was no focal defect. And it was felt to be a combination of decreased hearing and vision loss and his being in an unfamiliar environment. He was placed on initially Ativan and then Valium which had an excellent effect he then was placed on Seroquel and by 48 hours he looked great and had been back to his normal self. He has been to his normal self now for the last 2 days and seems to be doing better. And strength is better he is just more normal. All psychoactive medications were discontinued and we will follow. There was no evidence of any significant central issue and he is returned to his baseline Type 2 diabetes. Minimal issue. Currently not being treated except with diet Hypothyroidism not an issue during admission continue usual medication Hypokalemia. Patient had initial potassium dropped but was replaced and has been stable for days. Probably would not be a bad idea to recheck it in 2 weeks to make sure stable. Anemia of chronic disease. No significant change in hematocrit and hemoglobin. Over the course of his admission will follow Back pain. [place] to be secondary just to lying in bed for so long he seems to be less pain now. Normal exam. Once we started mobilizing he has been much better. BPH. Patient initially had indwelling Page mostly to track I&Os accurately. This was discontinued but due to his delirium is unclear how things were going and it was replaced he had some retention. He has otherwise been doing well and was discontinued back to his normal state without catheter. Exam Vital Signs (past 8 hours): - 10/07/23 08:00 10/07/23 09:00 10/07/23 11:21 Temperature 97.4 F L Pulse Rate 67 Respiratory Rate 16 Blood Pressure 113/59 L Pulse Oximetry 96 94 95 Oxygen Delivery Method Nasal Cannula Room Air Oxygen Flow Rate 1 1 0 Fraction of Inspired Oxygen 24 SaO2/FiO2 Ratio 412 Oxygen Delivery Method Room Air Oxygen Flow Rate 0 Narrative Exam Narrative: Alert elderly male sitting in chair in no acute distress HEENT exam is unremarkable lungs are clear heart irregular but well-controlled heart rate. Abdomen is soft positive bowel sounds nontender extremities no edema wrapped in the lower extremities with dressings. Has 1 large blister on the left toe no evidence of infection he has no erythema in the lower extremities neurologic exam is nonfocal Objective Labs 10/07/23 04:35 10/07/23 04:35 Labs: Laboratory Results - last 24 hr 10/07/23 04:35 WBC 7.9 RBC 3.41 L Hgb 9.9 L Hct 29.9 L MCV 87.7 MCH 29.1 MCHC 33.2 RDW 19.2 H Plt Count 119 L Neut % (Auto) 80.0 H Lymph % (Auto) 10.9 L [place] % (Auto) 5.8 Eos % (Auto) 3.1 Baso % (Auto) 0.2 Neut # (Auto) 6300 Lymph # (Auto) 900 L [place] # (Auto) 500 Eos # (Auto) 200 Baso # (Auto) 0 PT 35.9 H INR 3.1 H Sodium 132 L Potassium 3.9 Chloride 94 L Carbon Dioxide 33 H BUN 41 H Creatinine 1.45 H Estimated GFR 49 L BUN/Creatinine Ratio 28.3 H Glucose 107 Calcium 10.0 Total Bilirubin 1.0 AST 38 ALT 37 Alkaline Phosphatase 104 Total Protein 6.4 Albumin 3.2 L Globulin 3.2 Albumin/Globulin Ratio 1.0 PFSH Medical History Alcohol abuse GERD (gastroesophageal reflux disease) Mixed hyperlipidemia Essential hypertension Congestive heart failure Hypothyroidism Depression Venous stasis Esophageal ulceration Surgical History Status post appendectomy Family History Other Congestive heart failure Social History household members: spouse Smoking Status: Never smoker alcohol intake: never Discharge Assessment & Plan Assessment and Plan Assessment: Markedly improved Plan of Treatment: Discharge to rehab center for strengthening Discharge Plan Discharge Plan Patient Disposition: SNF Transfer to: [facility] Under care of provider: bharat finnegan Consult as needed: Dental, Hearing, Mental health, Podiatry and Vision Discharge orders & Medications Prescriptions: New metoprolol succinate 25 mg Tablet Extended Release 24 Hr 37.5 mg PO BID Qty: 90 4RF polyethylene glycol 3350 [Gavilax] 17 gram powder in packet 17 g PO DAILY Qty: 100 0RF warfarin 2.5 mg Tablet 2.5 mg PO 1700 Qty: 90 0RF Continued pantoprazole 40 mg Tablet,Delayed Release (Dr/Ec) 40 mg PO DAILY Qty: 30 0RF pravastatin 20 mg Tablet 40 mg PO BEDTIME Qty: 30 0RF potassium chloride [Klor-Con M20] 20 mEq Tablet,Er Particles/Crystals 40 meq PO DAILYCC Qty: 30 1RF digoxin 125 mcg (0.125 mg) Tablet 0.125 mg PO Q48H Qty: 60 0RF levothyroxine 137 mcg Tablet 137 mcg PO 0600 Qty: 30 0RF tamsulosin [Flomax] 0.4 mg Capsule 0.8 mg PO DAILY Qty: 60 0RF torsemide 10 mg tablet 20 mg PO QAM spironolactone 25 mg tablet 12.5 mg PO DAILY Discontinued metoprolol succinate 50 mg Tablet Extended Release 24 Hr 25 mg PO BID Qty: 90 3RF warfarin 5 mg Tablet 5 mg PO DAILY@1700 Qty: 30 0RF torsemide 10 mg Tablet 10 mg PO QPM Follow up/Referrals: Zackary Hoover MD [Primary Care Provider] - (When discharged from care home) Discharge Health Status Multidrug resistant organism: No MDRO Precautions: [place] Diet/Activity/Treatments Diet: Carb-consistent/Diabetic Liquid consistency: Normal/Thin Food texture: Regular Activity: As tolerated Oxygen: None needed at this time Other treatments: Wound care to lower extremities Skin/Wound/Dressing Care Report to your healthcare provider any signs of infection, such as:: chills, fever, night sweats and increased pain Dressing: As per wound care Other wound treatment: Daily dressing changes Special Rehabilitation Services Reason for rehabilitation: Recovery r/t decondition Rehab type: Physical therapy, Occupational therapy and Speech therapy Visit Report/Discharge Packet Stand Alone Forms: Patient Portal/API Discharge Data Primary Care Provider: Zackary Hoover Quality VTE Deep Vein Thrombosis/Pulmonary Embolism Present on Admission: No
--- NOTE | 2023-10-07 16:28 | PC.NURSE ---
Report given to accepting KANDACE Vaz at [facility], all questions answered. All belongings with pt including glasses, hearing amplifier, walker, 2 boxes of dressing supplies (from his home), and some clothing. Information packet with pt. Dressings to BLEs changed prior to d/c. Page d/c'd and pt voided twice prior to d/c.
== END 2023-10-07 16:30 | DRG 871 ==
LOC: ED 20:47 → AC 21:03 → ICU 22:05
PROVIDERS: Emergency Medicine; Family Medicine; Admitting Provider Family Medicine; Emergency Provider Emergency Medicine; PCP Family Medicine; Referring Provider Emergency Medicine; Visit Provider Family Medicine
DX: A41.9 Sepsis, unspecified organism (principal); I50.33 Acute on chronic diastolic (congestive) heart failure; J96.01 Acute respiratory failure with hypoxia; J96.02 Acute respiratory failure with hypercapnia; L03.115 Cellulitis of right lower limb; L97.921 Non-pressure chronic ulcer of unspecified part of left lower leg limited to breakdown of skin; L97.919 Non-pressure chronic ulcer of unspecified part of right lower leg with unspecified severity; N17.9 Acute kidney failure, unspecified; I13.0 Hypertensive heart and chronic kidney disease with heart failure and stage 1 through stage 4 chronic kidney disease, or unspecified chronic kidney disease; L03.116 Cellulitis of left lower limb; R44.3 Hallucinations, unspecified; I48.91 Unspecified atrial fibrillation; R65.20 Severe sepsis without septic shock; E87.6 Hypokalemia; N40.0 Benign prostatic hyperplasia without lower urinary tract symptoms; L97.529 Non-pressure chronic ulcer of other part of left foot with unspecified severity; I87.8 Other specified disorders of veins; R79.1 Abnormal coagulation profile; E11.22 Type 2 diabetes mellitus with diabetic chronic kidney disease; N18.30 Chronic kidney disease, stage 3 unspecified; R41.0 Disorientation, unspecified; D63.1 Anemia in chronic kidney disease; M54.9 Dorsalgia, unspecified; R45.1 Restlessness and agitation; K21.9 Gastro-esophageal reflux disease without esophagitis; E78.2 Mixed hyperlipidemia; F32.A Depression, unspecified; Z66 Do not resuscitate; Z79.01 Long term (current) use of anticoagulants
CPT/HCPCS: 36415; 36592; 71045; 80053; 80162; 81001; 82550; 82805; 82962; 83605; 83690; 83735; 83880; 84145; 84443; 84484; 85025; 85610; 85730; 87040; 87070; 87075; 87077; 87086; 87147; 87186; 87205; 87633; 87797; 93005; 94660; 94760; 96365; 96366; 96367; 96368; 96375; 96376; 97163; 97530; 97535; 99233; 99285; 99291; 99292; C8929; J0461; J0696; J1162; J1170; J1610; J1940; J2060; J2270; J3360; Q9957

== ENCOUNTER → 2023-10-29 14:27 | Outpatient (CLI) | payer OTHER, SELFPAY ==
[2023-09-28 21:05] VITALS: BMI 37.5
[2023-10-02 01:23] VITALS: PULSE 81; RESP 23; O2SAT 98
== END ==
LOC: WC 14:28
PROVIDERS: PCP Family Medicine; Referring Provider Family Medicine; Visit Provider Surgery
DX: L97.812 Non-pressure chronic ulcer of other part of right lower leg with fat layer exposed (principal); I87.2 Venous insufficiency (chronic) (peripheral); L89.893 Pressure ulcer of other site, stage 3; R60.0 Localized edema; L53.9 Erythematous condition, unspecified; I50.9 Heart failure, unspecified; I48.91 Unspecified atrial fibrillation; N18.9 Chronic kidney disease, unspecified
CPT/HCPCS: 11042; 99213